=== PATIENT | female | born 1930 | race American Indian/Alaskan Native ===

== ENCOUNTER 2016-05-27 19:20 | Inpatient (IN) | payer MEDICARE, MEDICAID ==
[2016-04-27 23:28] VITALS: BMI 23.1
[2016-05-27] MEDS: Menthol/Methyl Salicylate Ointment(1 oz) TOP SCH (22:23)
[2016-05-27] MEDS ORDERED: Pneumococcal 23-Valent Vaccine IM ONE (22:52)
[2016-05-27] MEDS ORDERED: Influenza Vaccine 45 MCG/0.5 ml IM ONE (22:52)
[2016-05-28] MEDS: Albuterol-Ipratrop 3 mg / 0.5 (3 ml) UD IH SCH ×4 (01:55→20:45)
[2016-05-28 05:41] LABS: ADD MANUAL DIFF? NO
[2016-05-28 05:46] LABS: EOS % 0.4 % (1.5-5.0); GRAN # 4.69 (1.4-6.5); GRAN % 68.5 % (50.0-68.0); HEMATOCRIT 26.2 % (36.0-48.0); LYMPH # 1.2 (1.2-3.4); LYMPH % 17.1 % (22.0-35.0); MEAN CELL VOLUME 91.9 fL (80.0-105.0); MEAN CORPUSCULAR HEMOGLOBIN 30.5 pg (25.0-35.0); MEAN CORPUSCULAR HGB CONC 33.2 g/dl (31.0-37.0); MEAN PLATELET VOLUME 9.9 fl (7.0-11.0); PLATELET COUNT 277 10^3/uL (120.0-450.0); RED CELL DISTRIBUTION WIDTH 13.8 % (11.5-14.5); WHITE BLOOD COUNT 6.9 10^3/ul (4.5-11.0)
[2016-05-28 06:54] LABS: ALB/GLOB RATIO 0.9 (1.1-1.8); ALKALINE PHOSPHATASE 82 U/L (38-133); ALT/SGPT 12 U/L (7-56); AST/SGOT 30 U/L (15-39); BILIRUBIN,TOTAL 0.6 mg/dL (0.2-1.3); BLOOD UREA NITROGEN 12 mg/dL (7-21); CALCIUM 8.3 mg/dL (8.4-10.5); CARBON DIOXIDE 24 mmol/L (21-33); CHLORIDE 104 mmol/L (95-110); GFR AFRICAN-AMERICAN > 60; GLUCOSE,RANDOM 78 mg/dL (70-110); PHOSPHOROUS 2.7 mg/dL (2.5-4.5); POTASSIUM 4.3 mmol/L (3.6-5.0); SODIUM 136 mmol/L (132-148); TOTAL PROTEIN 6.3 g/dL (5.8-8.3)
--- NOTE | 2016-05-28 08:09 | RAD ---
HISTORY: Followup. Technique: Single view portable semi erect @ 21:08. COMPARISON: 05/20/2016. FINDINGS: LUNGS: No active pulmonary disease. PLEURA: No significant pleural effusion identified, no pneumothorax apparent. CARDIOVASCULAR: No radiographic findings to suggest acute or significant cardiovascular disease. OSSEOUS STRUCTURES: Two for osteoarthritic changes both shoulders. VISUALIZED UPPER ABDOMEN: Normal. OTHER FINDINGS: None. IMPRESSION: No active disease. No significant interval change compared to the prior examination(s).
[2016-05-28] MEDS: Menthol/Methyl Salicylate Ointment(1 oz) TOP SCH ×4 (10:07→22:40)
[2016-05-28 10:15] LABS: T4 7.1 ug/dL (5.5-11.0)
[2016-05-28 10:29] LABS: T3 0.59 ng/mL (0.97-1.69); THYROID STIMULATING HORMONE 3.68 mIU/mL (0.46-4.68)
--- NOTE | 2016-05-28 10:55 | CP.PCM.HP ---
History of Present Illness - History of Present Illness History of Present Illness: PGY-1 H&P 85 yo female with PMH of HTN, GI bleed, CAD with stents, anemia and osteoporosis was admitted for fever of unknown origin. She was previously hospitalized for e. coli bacteremia, NSTEMI with 1 stent placed, PNE, and sepsis. Patient was in TCU when she begin to have persistent fluctuating fever for 2 weeks since 05/14/16. Her temperature ranging from 102 to normal. Tylenol was given to help decrease her temperature. She did not have leukocytosis. Her repeat urine cultures from 05/26/16 was negative and blood cultures from 05/24/16 were negative. Her only complaint is fatigue. She denies any headache, dizziness , sob, chest pain, sore throat, abd pain, N/V/D/C, urinary symptoms. She reports mild dry cough. PMH; HTN, GI bleed, CAD with stents, anemia, osteoporosis, h/o e. coli bacteremia PSH; cardiac cath sh; denies smoking, alcohol use, illicit drug use allergy; NKDA Present on Admission - Present on Admission Any Indicators Present on Admission: No Review of Systems - Constitutional Constitutional: Chills, Fatigue, Fever - EENT Eyes: absent: Blurred Vision Nose/Mouth/Throat: absent: Nasal Congestion, Sore Throat - Cardiovascular Cardiovascular: absent: Chest Pain, Dyspnea - Respiratory Respiratory: Cough (mild). absent: Dyspnea, Hemoptysis - Gastrointestinal Gastrointestinal: absent: Abdominal Pain, Constipation, Diarrhea, Nausea, Vomiting - Genitourinary Genitourinary: absent: Difficulty Urinating - Musculoskeletal Musculoskeletal: absent: Muscle Weakness, Numbness, Tingling - Integumentary Integumentary: absent: Rash, Swelling - Neurological Neurological: absent: Dizziness, Numbness, Syncope, Tingling, Weakness - Hematologic/Lymphatic Hematologic: absent: Easy Bleeding, Easy Bruising Past Patient History - Infectious Disease Hx of Infectious Diseases: None - Tetanus Immunizations Tetanus Immunization: Unknown - Past Medical History & Family History Past Medical History?: Yes - Past Social History Smoking Status: Never Smoked Alcohol: None Drugs: Denies - CARDIAC Hx Cardiac Disorders: Yes (angioplasty) Hx Congestive Heart Failure: Yes Hx Heart Murmur: Yes Hx Hypertension: Yes Hx Peripheral Edema: Yes (ble +1 pitting) - PULMONARY Hx Respiratory Disorders: No - NEUROLOGICAL Hx Neurological Disorder: No - HEENT Hx HEENT Problems: Yes Hx Cataracts: Yes (left eye no sx) - RENAL Hx Kidney Stones: Yes - ENDOCRINE/METABOLIC Hx Endocrine Disorders: No - HEMATOLOGICAL/ONCOLOGICAL Hx Blood Disorders: Yes Hx Anemia: Yes (blood transfusions) - INTEGUMENTARY Hx Dermatological Problems: Yes (BILATERAL LEG EDEMA MAINLY TO FEET MORE TO LEFT.) Other/Comment: ble skin tight/edema - MUSCULOSKELETAL/RHEUMATOLOGICAL Hx Falls: No - GASTROINTESTINAL Hx Gastrointestinal Disorders: Yes (DIVERTICULOSIS,HEMORRHOID,GI BLEED,RECTAL BLEED) Hx Gall Bladder Disease: Yes (gallstones) Hx Gastroesophageal Reflux: Yes Other/Comment: rectal bleed - GENITOURINARY/GYNECOLOGICAL Hx Genitourinary Disorders: Yes Hx Urinary Tract Infection: Yes - PSYCHIATRIC Hx Substance Use: No - SURGICAL HISTORY Hx Surgeries: Yes (CHOLECYSTECTOMY) Hx Cardiac Catheterization: Yes Hx Cholecystectomy: Yes Hx Hysterectomy: Yes - ANESTHESIA Hx Anesthesia Reactions: No Hx Malignant Hyperthermia: No Meds Allergies/Adverse Reactions: Allergies Allergy/AdvReac Type Severity Reaction Status Date / Time No Known Allergies Allergy Verified 05/09/16 15:35 Results - Vital Signs Recent Vital Signs: Last Vital Signs Temp 101.5 F H 05/28/16 07:30 Pulse 85 05/28/16 10:08 Resp 18 05/28/16 07:30 BP 146/75 05/28/16 10:08 Pulse Ox 96 05/28/16 07:30 - Labs Result Diagrams: 05/28/16 04:30 05/28/16 04:30 Labs: Laboratory Results - last 24 hr 05/28/16 05/28/16 04:30 07:30 WBC 6.9 RBC 2.85 L Hgb 8.7 L Hct 26.2 L MCV 91.9 MCH 30.5 MCHC 33.2 RDW 13.8 Plt Count 277 MPV 9.9 Gran % 68.5 H Lymph % (Auto) 17.[address] [place] % (Auto) 14.0 H Eos % (Auto) 0.4 L Baso % (Auto) 0.0 Gran # 4.69 Lymph # 1.2 [place] # 1.0 H Eos # 0.0 Baso # 0.00 Sodium 136 Potassium 4.3 Chloride 104 Carbon Dioxide 24 Anion Gap 12 BUN 12 Creatinine 0.6 Est GFR ( Amer) > 60 Est GFR (Non-Af Amer) > 60 Random Glucose 78 Calcium 8.3 L Phosphorus 2.7 Magnesium 2.0 Total Bilirubin 0.6 AST 30 ALT 12 Alkaline Phosphatase 82 Lactate Dehydrogenase 458 Total Protein 6.3 Albumin 2.9 L Globulin 3.4 Albumin/Globulin Ratio 0.9 L Thyroxine (T4) 7.1 Total T3 0.59 L TSH 3rd Generation 3.68 Assessment & Plan - Assessment and Plan (Free Text) Assessment: 85 F whose pmh includes hypertension, GI bleed, CAD with stents, anemia, osteoporosis, and h/o recent E-coli bacteremia presents from TCU with fever of unknown origin. Pt has a persistent fluctuating fever for 2 weeks since 05/14/16. Plan: 1. Fever of unknown origin - CT chest, abd, pelvis - cxr showed no acute disease - consider head CT if other imaging is negative - consider MARTI to r/o culture negative endocarditis due to recent antibiotics - CRP and ESR were positive, LFT normal, anemia - R/O latent TB, EBV, HIV, salmonella Ab - CMV, HIV and syphillis negative - MM test were negative(order urine immunofix, proterin electrophoresis, serum immunofixation) - repeat urine cultures (05/26) negative and blood culture (05/24) negative after 3 days - repeat amaral cultures - SIMONA r/o vasculitis - ID started doxycycline - ID following 2. CAD - recent NSTEMI s/p angioplasty and LAD bare metal stent - cont ASA, plavix, metoprolol, valsartan 320, metoprolol 25, lipitor 40 3. HLD - cont lipitor 40 4. CHF- diastolic - echo on 05/24 showed grade I- abnormal relaxation pattern - CXR: no acute disease - Continue home lasix 40 5. HTN - stable - cont valsartan 320, Lasix 40, metoprolol 25 XL - If persistently high, consider adding 5mg amlodipine 6. Deconditioning - PT/OT - OOB 7. Alzheimer - cont Donepezil 10 daily 8. Anemia - on Feosol 324 TID 9. Osteoporosis - on Fosamax 70 every friday Consult: - Infectious disease - Dr. Jarvis Sampson - [employer] Resource [employer]ist - Dr. Vinayak Lee - Cardiology- Dr. Wolfe
--- NOTE | 2016-05-28 11:00 | US ---
HISTORY: assess thyroid TECHNIQUE: Sonographic evaluation of the thyroid gland. COMPARISON: None FINDINGS: RIGHT LOBE: Measures 3.7 x 1.5 x 1.4 cm. Normal echotexture and flow. Nodules: None LEFT LOBE: Measures 1.9 x 1.4 x 1.3 cm. Normal echotexture and flow. Nodules: None ISTHMUS: Measures cm. Normal echotexture and flow. Nodules: None OTHER FINDINGS: None . IMPRESSION: Unremarkable thyroid sonogram.
--- NOTE | 2016-05-28 11:04 | CT ---
PROCEDURE: CT Abdomen and Pelvis without intravenous contrast HISTORY: sepsis, assess for possible source COMPARISON: 02/05/2016 TECHNIQUE: Without oral or IV contrast. Contrast Dose: Radiation dose: Total exam DLP = 731 mGy-cm. FINDINGS: LOWER THORAX: Small pericardial effusion unchanged LIVER: Unremarkable. No gross lesion or ductal dilatation. GALLBLADDER AND BILE DUCTS: Gallbladder not visualized PANCREAS: Unremarkable. No gross lesion or ductal dilatation. SPLEEN: Unremarkable. ADRENALS: Unremarkable. No mass. KIDNEYS AND URETERS: Unremarkable. No hydronephrosis. No solid mass. VASCULATURE: Unremarkable. No aortic aneurysm. BOWEL: There is a probable diverticular abscess in the left lower quadrant. This is located posterior to the descending colon. This is best seen on axial image 155. There is obliteration of the fat planes between this collection and the left iliac muscle. Air can be seen within the collection. This measures 5.4 cm in diameter. The finding is also well demonstrated on sagittal image 97 and coronal image 52. APPENDIX: Unremarkable. Normal appendix. PERITONEUM: Unremarkable. No free fluid. No free air. LYMPH NODES: Unremarkable. No enlarged lymph nodes. BLADDER: Unremarkable. REPRODUCTIVE: Unremarkable. BONES: There is bony erosion of the left femoral head and expansion of the acetabulum which is filled with fluid. This is unchanged. OTHER FINDINGS: None. IMPRESSION: 5 cm diverticular abscess in the left lower quadrant.
[2016-05-28 11:09] LABS: IRON 10 ug/dL (45-180)
[2016-05-28] MEDS: Piperacillin/Tazobact 3.375 gm 100 ML IVPB SCH ×2 (12:15→17:05)
[2016-05-28 15:42] LABS: FOLATE 11.3 ng/mL
[2016-05-28] MEDS ORDERED: Piperacillin/Tazobact 3.375 gm 100 ML IVPB SCH (18:15)
[2016-05-29] MEDS: Piperacillin/Tazobact 3.375 gm 100 ML IVPB SCH ×5 (00:04→23:19)
--- NOTE | 2016-05-29 01:14 | CP.PCM.CON ---
History of Present Illness - History of Present Illness History of Present Illness: Infectious Disease Follow Up: May 28, 2016 85 yo female initially admitted for worsening shortness of breath and orthopnea. She had a productive cough. No fevers or chills at time of admission. She has a history of hypertension, GI bleed, CAD with stents, anemia , and osteoporosis. Many of her hospitalizations last year were for GI bleed. Blood cultures in early hospitalization showed E. coli in both bottles. Patient received treatment with Rocephin for E. coli bacteremia and completed the course of antibiotics. In the TRCU, the patient had multiple temperature spikes up to 101.9 F overnight on Friday to Friday a week ago. The patient denies any symptoms at this point in time. She does not recall feeling bad or uncomfortable over night. Blood and urine cultures resent showing only coagulase negative staph in urine cultures. Chest X-ray did not show any particular findings. Patient was given Zyvox for treatment. The coagulase negative staph is showing a large number of resistances. Afebrile currently. Patient herself make little complaints. Given the persistence of these borderline fevers, would check the ESR, CRP, and repeat the urine studies. Noted the most recent X-ray of the chest that did not show signs of pneumonia at this point. ESR and CRP show significant elevation. Off antibiotic for about 72 hours now. No specific complaints. Fevers with temperature up to 101.6 F today. Repeat blood cultures have been negative at 24 hours. Awaiting urine culture and urinalysis results. On Doxycycline currently. Inflammatory markers remain high with ESR of 81 and CRP of >15. The patient has no complaints and doesn't realize when she has fevers. She states that she doesn't feel them. Both blood and urine cultures have been negative. Last blood culture was 3 days ago and urine culture done yesterday. Fever of unknown origin. Persistent fevers. Persistent elevation of inflammatory markers. Moved back to the medical floors. CT scan displayed a diverticular abscess. Interventional Radiology consulted. Still persistent fevers. Past Patient History - Infectious Disease Hx of Infectious Diseases: None - Tetanus Immunizations Tetanus Immunization: Unknown - Past Medical History & Family History Past Medical History?: Yes - Past Social History Smoking Status: Never Smoked Alcohol: None Drugs: Denies - CARDIAC Hx Cardiac Disorders: Yes (angioplasty) Hx Congestive Heart Failure: Yes Hx Heart Murmur: Yes Hx Hypertension: Yes Hx Peripheral Edema: Yes (ble +1 pitting) - PULMONARY Hx Respiratory Disorders: No - NEUROLOGICAL Hx Neurological Disorder: No - HEENT Hx HEENT Problems: Yes Hx Cataracts: Yes (left eye no sx) - RENAL Hx Kidney Stones: Yes - ENDOCRINE/METABOLIC Hx Endocrine Disorders: No - HEMATOLOGICAL/ONCOLOGICAL Hx Blood Disorders: Yes Hx Anemia: Yes (blood transfusions) - INTEGUMENTARY Hx Dermatological Problems: Yes (BILATERAL LEG EDEMA MAINLY TO FEET MORE TO LEFT.) Other/Comment: ble skin tight/edema - MUSCULOSKELETAL/RHEUMATOLOGICAL Hx Falls: No - GASTROINTESTINAL Hx Gastrointestinal Disorders: Yes (DIVERTICULOSIS,HEMORRHOID,GI BLEED,RECTAL BLEED) Hx Gall Bladder Disease: Yes (gallstones) Hx Gastroesophageal Reflux: Yes Other/Comment: rectal bleed - GENITOURINARY/GYNECOLOGICAL Hx Genitourinary Disorders: Yes Hx Urinary Tract Infection: Yes - PSYCHIATRIC Hx Substance Use: No - SURGICAL HISTORY Hx Surgeries: Yes (CHOLECYSTECTOMY) Hx Cardiac Catheterization: Yes Hx Cholecystectomy: Yes Hx Hysterectomy: Yes - ANESTHESIA Hx Anesthesia Reactions: No Hx Malignant Hyperthermia: No Meds Allergies/Adverse Reactions: Allergies Allergy/AdvReac Type Severity Reaction Status Date / Time No Known Allergies Allergy Verified 05/09/16 15:35 - Medications Medications: Current Medications Acetaminophen (Tylenol 325mg Tab) 650 mg PO Q4H PRN PRN Reason: Fever >100.4 F Last Admin: 05/28/16 22:44 Dose: 650 mg Albuterol/Ipratropium (Duoneb 3 Mg/0.5 Mg (3 Ml) Ud) 3 ml IH [id number] [facility] Last Admin: 05/28/16 20:45 Dose: 3 ml Alendronate Sodium (Fosamax) 70 mg PO Q7D [facility] Aspirin (Aspirin Chewable) 81 mg PO DAILY [facility] Last Admin: 05/28/16 10:07 Dose: 81 mg Atorvastatin Calcium (Lipitor) 40 mg PO DIN [facility] Last Admin: 05/28/16 17:04 Dose: 40 mg Camphor/Menthol (Bengay) 0 gm TOP QID [facility] Last Admin: 05/28/16 22:40 Dose: 1 applic Clopidogrel Bisulfate (Plavix) 75 mg PO DAILY [facility] Last Admin: 05/28/16 10:08 Dose: 75 mg Docusate Sodium (Colace) 100 mg PO TID [facility] Last Admin: 05/28/16 17:04 Dose: 100 mg Donepezil HCl (Aricept) 10 mg PO HS [facility] Last Admin: 05/28/16 22:38 Dose: 10 mg Ferrous Sulfate (Feosol) 324 mg PO BID [facility] Last Admin: 05/28/16 17:04 Dose: 324 mg Doxycycline Hyclate 100 mg/ (Sodium Chloride) 100 mls @ 100 mls/hr IVPB Q12 [facility] PRN Reason: Protocol Last Admin: 05/28/16 22:50 Dose: 100 mls/hr Iron Sucrose 100 mg/ Sodium (Chloride) 105 mls @ 210 mls/hr IVPB DAILY [facility] Stop: 06/02/16 10:01 Piperacillin Sod/Tazobactam Sod (Zosyn 3.375 In Ns 100ml) 100 mls @ 200 mls/hr IVPB Q6 [facility] PRN Reason: Protocol Stop: 06/03/16 06:29 Last Admin: 05/29/16 00:04 Dose: 200 mls/hr Metoprolol Tartrate (Lopressor) 50 mg PO BID [facility] Last Admin: 05/28/16 17:04 Dose: 50 mg Valsartan (Diovan) 320 mg PO DAILY [facility] Last Admin: 05/28/16 10:07 Dose: 320 mg Physical Exam - Constitutional Appears: Non-toxic, No Acute Distress, Chronically Ill - Head Exam Head Exam: ATRAUMATIC, NORMOCEPHALIC - Eye Exam Eye Exam: EOMI, PERRL Pupil Exam: NORMAL ACCOMODATION, PERRL - ENT Exam ENT Exam: Mucous Membranes Moist, Normal External Ear Exam, TM's Normal Bilaterally - Neck Exam Neck exam: Positive for: Full Rom, Normal Inspection - Respiratory Exam Respiratory Exam: Clear to Auscultation Bilateral, NORMAL BREATHING PATTERN. absent: Rales, Rhonchi, Wheezes - Cardiovascular Exam Cardiovascular Exam: REGULAR RHYTHM, RRR, +S1, +S2 - GI/Abdominal Exam GI & Abdominal Exam: Normal Bowel Sounds, Soft. absent: Distended, Tenderness - Extremities Exam Extremities exam: Positive for: full ROM, normal inspection - Neurological Exam Neurological exam: Alert, CN II-XII Intact, Oriented x3 - Psychiatric Exam Psychiatric exam: Normal Affect, Normal Mood - Skin Skin Exam: Intact, Normal Color Results - Vital Signs Recent Vital Signs: Last Vital Signs Temp 102.2 F H 05/28/16 22:44 Pulse 85 05/28/16 17:04 Resp 20 05/28/16 16:00 BP 137/88 05/28/16 17:04 Pulse Ox 98 05/28/16 16:00 - Labs Result Diagrams: 05/28/16 04:30 05/28/16 04:30 Labs: Laboratory Results - last 24 hr 05/28/16 05/28/16 05/28/16 04:30 07:00 07:30 WBC 6.9 RBC 2.85 L Hgb 8.7 L Hct 26.2 L MCV 91.9 MCH 30.5 MCHC 33.2 RDW 13.8 Plt Count 277 MPV 9.9 Gran % 68.5 H Lymph % (Auto) 17.1 L [place] % (Auto) 14.0 H Eos % (Auto) 0.4 L Baso % (Auto) 0.0 Gran # 4.69 Lymph # 1.2 [place] # 1.0 H Eos # 0.0 Baso # 0.00 Sodium 136 Potassium 4.3 Chloride 104 Carbon Dioxide 24 Anion Gap 12 BUN 12 Creatinine 0.6 Est GFR ( Amer) > 60 Est GFR (Non-Af Amer) > 60 Random Glucose 78 Calcium 8.3 L Phosphorus 2.7 Magnesium 2.0 Iron 10 L TIBC 220 L % Saturation 5 L Ferritin 164.0 Total Bilirubin 0.6 AST 30 ALT 12 Alkaline Phosphatase 82 Lactate Dehydrogenase 458 Total Protein 6.3 Albumin 2.9 L Globulin 3.4 Albumin/Globulin Ratio 0.9 L Vitamin B12 383 Folate 11.3 Procalcitonin 0.18 L Thyroxine (T4) 7.1 Total T3 0.59 L TSH 3rd Generation 3.68 Assessment & Plan - Assessment and Plan (Free Text) Assessment: 85 yo AA female readmitted to the medical floor for persistent fevers with no obvious source. The patient had CT performed that displayed a diverticular abscess. Interventional radiology consults for drainage. Cultures and pathology should be send if material is drainable from the abscess. Cannot rule out drug fever yet on the patient. If drainable, drainage of the diverticular abscess may defervesce the patient. If it does not or the abscess is not drainable, may have to look for another source of the patient's fever. Thank you for allowing me to participate in the care of the patient, we will follow with you.
[2016-05-29] MEDS: Albuterol-Ipratrop 3 mg / 0.5 (3 ml) UD IH SCH ×4 (01:19→21:00)
[2016-05-29 07:02] LABS: ADD MANUAL DIFF? NO
[2016-05-29 07:19] LABS: EOS % 0.5 % (1.5-5.0); GRAN # 5.54 (1.4-6.5); GRAN % 73.5 % (50.0-68.0); LYMPH % 12.9 % (22.0-35.0); MEAN CELL VOLUME 91.6 fL (80.0-105.0); MEAN CORPUSCULAR HEMOGLOBIN 30.5 pg (25.0-35.0); MEAN CORPUSCULAR HGB CONC 33.3 g/dl (31.0-37.0); MEAN PLATELET VOLUME 9.8 fl (7.0-11.0); MONO % 13.1 % (1.0-6.0); PLATELET COUNT 235 10^3/uL (120.0-450.0); RED CELL DISTRIBUTION WIDTH 14.1 % (11.5-14.5); WHITE BLOOD COUNT 7.5 10^3/ul (4.5-11.0)
[2016-05-29 07:26] LABS: ALB/GLOB RATIO 0.8 (1.1-1.8); ALKALINE PHOSPHATASE 80 U/L (38-133); ALT/SGPT 16 U/L (7-56); AST/SGOT 31 U/L (15-39); BILIRUBIN,TOTAL 0.5 mg/dL (0.2-1.3); BLOOD UREA NITROGEN 11 mg/dL (7-21); CALCIUM 7.9 mg/dL (8.4-10.5); CARBON DIOXIDE 23 mmol/L (21-33); CHLORIDE 105 mmol/L (95-110); GFR AFRICAN-AMERICAN > 60; GLUCOSE,RANDOM 77 mg/dL (70-110); POTASSIUM 3.8 mmol/L (3.6-5.0); SODIUM 137 mmol/L (132-148); TOTAL PROTEIN 6.1 g/dL (5.8-8.3)
--- NOTE | 2016-05-29 08:36 | PN ---
DATE: 05/28/2016 CARDIOLOGY FOLLOWUP SUBJECTIVE: The patient is comfortable. She was transferred to the med/surg floor for persistent fe jose. PHYSICAL EXAMINATION: VITAL SIGNS: Blood pressure is 146/75. The heart rate is in the 80s. Temperature is 101.5. NECK: Negative JVD. LUNGS: Without rales. HEART: S1, S2. EXTREMITIES: Without edema. LABORATORY DATA: White count is 6.9. Hemoglobin is 8.7. Chemistries are unremarkable. IMPRESSION: 1. Fever of unknown origin. 2. Stable angina. 3. Coronary artery disease. 4. History of percutaneous transluminal coronary angioplasty and stent of left anterior descending 3 weeks ago with bare metal stent. 5. Hypercholesterolemia. 6. Hypertension. PLAN: Given these findings, the patient's cardiac status is stable. Hemodynamically, she is doing w ell. The patient will need to stay on Plavix for 1 more week. Esa Wolfe MD cc: [id number] TT: 05/28/2016 12:21:50 Confirmation # [id number] Dictation # [id number] reymundo
--- NOTE | 2016-05-29 08:50 | PN ---
DATE: 05/29/2016 SUBJECTIVE: The patient appears comfortable at rest. She is not short of breath. PHYSICAL EXAMINATION: VITAL SIGNS: Temperature is 102.1, pulse 82, respirations 18, blood pressure 135/59. Oxygen saturation on room air is 98%. HEENT: Normocephalic, atraumatic. No JVD. CARDIOVASCULAR: Systolic ejection murmur at the lower left sternal border. No S3 gallop. LUNGS: Minimal crackles at the bases. No rhonchi. No wheezing. EXTREMITIES: Mild edema. No cyanosis, no clubbing. Calves are nontender to palpation. GASTROINTESTINAL: Abdomen is soft, nontender, nondistended. Bowel sounds are positive. SKIN: No acute rash. NEUROLOGIC: Limited at the present time. PERTINENT LABORATORY DATA: CAT scan of the chest, abdomen and pelvis was done on 05/27/2016. There is a diverticular abscess in the left lower quadrant identified. IMPRESSION: 1. Diverticular abscess. 2. Sepsis syndrome. 3. Status post acute myocardial infarction. 4. Status post bilateral pneumonia. 5. Status post congestive heart failure. 6. Acute bronchitis - resolving. PLAN: The patient appears comfortable this morning. She is not short of breath at rest. She states she is feeling better overall. On physical exam, no significant bronchospasm is identified. In addition, there is no significant alveolar arterial gradient. Oxygen saturation on room air is now 98 %. I would continue with current pulmonary medications for now. I did review the last CAT scan - as above. There is a diverticular abscess noted. Dr. Esa Zaldivar (interventional radiology) has been called on the case for drainage. Clinical status of this patient remains very guarded. I will discuss the above with the attending physician. Vinayak Lee MD cc: [id number] TT: 05/29/2016 08:49:08 Confirmation # [id number] Dictation # [id number] [email or web address] KIRK
[2016-05-29 09:53] LABS: URINE BILIRUBIN NEGATIVE (NEGATIVE); URINE BLOOD TRACE-INTACT (NEGATIVE); URINE GLUCOSE (UA) NEGATIVE (NEGATIVE); URINE KETONE NEGATIVE (NEGATIVE); URINE LEUKOCYTE ESTERASE NEGATIVE Leu/uL (NEGATIVE); URINE PROTEIN NEGATIVE mg/dL (<30 mg/dL); URINE UROBILINOGEN 0.2 E.U./dL (<1 E.U./dL)
[2016-05-29 09:54] LABS: URINE APPEARANCE CLEAR (CLEAR); URINE COLOR YELLOW (YELLOW)
[2016-05-29 10:04] LABS: URINE BACTERIA FEW (NEG); URINE RBC 0 - 2 /hpf (0-2)
[2016-05-29] MEDS ORDERED: Barium Sulfate Susp 2.1% w/v, 2.0% w/w 450 mL Bottle PO ONE (10:27)
[2016-05-29] MEDS: Menthol/Methyl Salicylate Ointment(1 oz) TOP SCH ×3 (10:41→18:06)
[2016-05-29 11:36] LABS: INR 1.26 (0.93-1.08); PARTIAL THROMBOPLASTIN TIME 36.1 Seconds (23.7-30.8)
--- NOTE | 2016-05-29 12:25 | CP.PCM.CON ---
History of Present Illness - History of Present Illness History of Present Illness: General Surgery Dr. Keita HPI: 85 y/o F w/ PMHx of HTN, GI bleed, and CAD s/p stents was admitted from TCU for fever of unknown origin. According to hospital documentation, pt was in TCU when she began having persistent fluctuating fevers [id number]. Pt did not have leukocytsis and all cultures were negative. Pt was amaral-scanned on 05/27 which revealed a 5cm diverticular abscess in the LLQ behind the descending colon. Pt denies abd pain, N/V, F/C, D/C, hematochezia, and melena. PMHx: HTN, CAD s/p stenting, anemia, GI bleed, osteoporosis, E. coli bacteremia Meds: reviewed in chart NKDA PSHx: open cholecystectomy, hysterectomy, stents SHx: denies tobacco, EtOH, drug use. lives alone FHx: non-contributory Review of Systems - Review of Systems All systems: reviewed and no additional remarkable complaints except (that which stated in HPI) Past Patient History - Infectious Disease Hx of Infectious Diseases: None - Tetanus Immunizations Tetanus Immunization: Unknown - Past Medical History & Family History Past Medical History?: Yes - Past Social History Smoking Status: Never Smoked Alcohol: None Drugs: Denies - CARDIAC Hx Cardiac Disorders: Yes (angioplasty) Hx Congestive Heart Failure: Yes Hx Heart Murmur: Yes Hx Hypertension: Yes Hx Peripheral Edema: Yes (ble +1 pitting) - PULMONARY Hx Respiratory Disorders: No - NEUROLOGICAL Hx Neurological Disorder: No - HEENT Hx HEENT Problems: Yes Hx Cataracts: Yes (left eye no sx) - RENAL Hx Kidney Stones: Yes - ENDOCRINE/METABOLIC Hx Endocrine Disorders: No - HEMATOLOGICAL/ONCOLOGICAL Hx Blood Disorders: Yes Hx Anemia: Yes (blood transfusions) - INTEGUMENTARY Hx Dermatological Problems: Yes (BILATERAL LEG EDEMA MAINLY TO FEET MORE TO LEFT.) Other/Comment: ble skin tight/edema - MUSCULOSKELETAL/RHEUMATOLOGICAL Hx Falls: No - GASTROINTESTINAL Hx Gastrointestinal Disorders: Yes (DIVERTICULOSIS,HEMORRHOID,GI BLEED,RECTAL BLEED) Hx Gall Bladder Disease: Yes (gallstones) Hx Gastroesophageal Reflux: Yes Other/Comment: rectal bleed - GENITOURINARY/GYNECOLOGICAL Hx Genitourinary Disorders: Yes Hx Urinary Tract Infection: Yes - PSYCHIATRIC Hx Substance Use: No - SURGICAL HISTORY Hx Surgeries: Yes (CHOLECYSTECTOMY) Hx Cardiac Catheterization: Yes Hx Cholecystectomy: Yes Hx Hysterectomy: Yes - ANESTHESIA Hx Anesthesia Reactions: No Hx Malignant Hyperthermia: No Meds Allergies/Adverse Reactions: Allergies Allergy/AdvReac Type Severity Reaction Status Date / Time No Known Allergies Allergy Verified 05/09/16 15:35 - Medications Medications: Current Medications Acetaminophen (Tylenol 325mg Tab) 650 mg PO Q4H PRN PRN Reason: Fever >100.4 F Last Admin: 05/29/16 06:30 Dose: 650 mg Albuterol/Ipratropium (Duoneb 3 Mg/0.5 Mg (3 Ml) Ud) 3 ml IH [id number] [facility] Last Admin: 05/29/16 07:24 Dose: 3 ml Alendronate Sodium (Fosamax) 70 mg PO Q7D [facility] Aspirin (Aspirin Chewable) 81 mg PO DAILY [facility] Last Admin: 05/29/16 10:40 Dose: Not Given Atorvastatin Calcium (Lipitor) 40 mg PO DIN [facility] Last Admin: 05/28/16 17:04 Dose: 40 mg Camphor/Menthol (Bengay) 0 gm TOP QID [facility] Last Admin: 05/29/16 10:41 Dose: 1 applic Clopidogrel Bisulfate (Plavix) 75 mg PO DAILY [facility] Last Admin: 05/29/16 10:40 Dose: Not Given Docusate Sodium (Colace) 100 mg PO TID [facility] Last Admin: 05/29/16 09:43 Dose: 100 mg Donepezil HCl (Aricept) 10 mg PO HS [facility] Last Admin: 05/28/16 22:38 Dose: 10 mg Ferrous Sulfate (Feosol) 324 mg PO BID [facility] Last Admin: 05/29/16 09:43 Dose: 324 mg Doxycycline Hyclate 100 mg/ (Sodium Chloride) 100 mls @ 100 mls/hr IVPB Q12 [facility] PRN Reason: Protocol Last Admin: 05/29/16 10:38 Dose: 100 mls/hr Iron Sucrose 100 mg/ Sodium (Chloride) 105 mls @ 210 mls/hr IVPB DAILY [facility] Stop: 06/02/16 10:01 Last Admin: 05/29/16 09:48 Dose: 210 mls/hr Piperacillin Sod/Tazobactam Sod (Zosyn 3.375 In Ns 100ml) 100 mls @ 200 mls/hr IVPB Q6 [facility] PRN Reason: Protocol Stop: 06/03/16 06:29 Last Admin: 05/29/16 06:25 Dose: 200 mls/hr Metoprolol Tartrate (Lopressor) 50 mg PO BID [facility] Last Admin: 05/29/16 09:44 Dose: 50 mg Valsartan (Diovan) 320 mg PO DAILY [facility] Last Admin: 05/29/16 09:43 Dose: 320 mg Physical Exam - Constitutional Appears: Non-toxic, No Acute Distress - Head Exam Head Exam: NORMAL INSPECTION - Eye Exam Eye Exam: Normal appearance - ENT Exam ENT Exam: Mucous Membranes Moist - Respiratory Exam Respiratory Exam: NORMAL BREATHING PATTERN. absent: Accessory Muscle Use, Respiratory Distress - GI/Abdominal Exam GI & Abdominal Exam: Guarding (involuntary; LUQ/LLQ), Soft. absent: Distended, Rebound, Rigid, Tenderness Additional comments: scars present R subcostal and midline suprapubic - Neurological Exam Neurological exam: Alert, Oriented x3 - Psychiatric Exam Psychiatric exam: Normal Affect, Normal Mood - Skin Skin Exam: Dry, Intact, Normal Color, Warm Results - Vital Signs Recent Vital Signs: Last Vital Signs Temp 99.0 F 05/29/16 07:30 Pulse 82 05/29/16 09:44 Resp 18 05/29/16 07:30 BP 135/60 05/29/16 09:44 Pulse Ox 98 05/29/16 07:30 - Labs Result Diagrams: 05/29/16 06:30 05/29/16 06:30 Labs: Laboratory Tests 05/29/16 05/29/16 06:30 09:30 Calcium 7.9 L Total Bilirubin 0.5 AST 31 ALT 16 Alkaline Phosphatase 80 Total Protein 6.1 Albumin 2.7 L Urine Color Yellow Urine Appearance Clear Urine pH 6.0 Ur Specific Bath 1.020 Urine Protein Negative Urine Glucose (UA) Negative Urine Ketones Negative Urine Blood Trace-intact H Urine Nitrate Negative Urine Bilirubin Negative Urine Urobilinogen 0.2 Ur Leukocyte Esterase Negative Urine RBC 0 - 2 Urine WBC 1 - 3 Ur Epithelial Cells 4 - 5 Urine Bacteria Few Urine Other Uyeast Microbiology 05/27/16 21:25 Blood Blood Culture - Preliminary 05/27/16 21:25 Blood NO GROWTH AFTER 24 HOURS - Imaging and Cardiology CT scan - abdomen Status: Image reviewed by me, Report reviewed by me Assessment & Plan - Assessment and Plan (Free Text) Assessment: 85 y/o F w/ 5cm diverticular abscess - IR drainage - cont Abx per ID - NPO - IVF - f/u GI recs - GI/DVT PPx Pt discussed w/ Dr. Bossman Llanos DO PGY1
--- NOTE | 2016-05-29 12:50 | CP.PCM.PN ---
Subjective - Date & Time of Evaluation Date of Evaluation: 05/29/16 Time of Evaluation: 10:00 - Subjective Subjective: PGY-1 Progress note. Patient seen and examined at bedside. No acute distress. Nurse reports that overnight patient spiked a fever of 102.2. She was give Tylenol. Her temperature did improve however it became elevated again. Patient has no complaints. She denies headache, dizziness, chest pain, sob, abd pain, n/v/d/c, dysuria. Objective - Vital Signs/Intake and Output Vital Signs (last 24 hours): Temp Pulse Resp BP Pulse Ox 99.0 F 82 18 135/60 98 05/29/16 07:30 05/29/16 09:44 05/29/16 07:30 05/29/16 09:44 05/29/16 07:30 Intake and Output: 05/29/16 05/29/16 06:59 18:59 Intake Total 830 Balance 830 - Medications Medications: Current Medications Acetaminophen (Tylenol 325mg Tab) 650 mg PO Q4H PRN PRN Reason: Fever >100.4 F Last Admin: 05/29/16 06:30 Dose: 650 mg Albuterol/Ipratropium (Duoneb 3 Mg/0.5 Mg (3 Ml) Ud) 3 ml IH [id number] [facility] Last Admin: 05/29/16 07:24 Dose: 3 ml Alendronate Sodium (Fosamax) 70 mg PO Q7D [facility] Aspirin (Aspirin Chewable) 81 mg PO DAILY [facility] Last Admin: 05/29/16 10:40 Dose: Not Given Atorvastatin Calcium (Lipitor) 40 mg PO DIN [facility] Last Admin: 05/28/16 17:04 Dose: 40 mg Camphor/Menthol (Bengay) 0 gm TOP QID [facility] Last Admin: 05/29/16 10:41 Dose: 1 applic Clopidogrel Bisulfate (Plavix) 75 mg PO DAILY [facility] Last Admin: 05/29/16 10:40 Dose: Not Given Docusate Sodium (Colace) 100 mg PO TID [facility] Last Admin: 05/29/16 09:43 Dose: 100 mg Donepezil HCl (Aricept) 10 mg PO HS [facility] Last Admin: 05/28/16 22:38 Dose: 10 mg Ferrous Sulfate (Feosol) 324 mg PO BID [facility] Last Admin: 05/29/16 09:43 Dose: 324 mg Doxycycline Hyclate 100 mg/ (Sodium Chloride) 100 mls @ 100 mls/hr IVPB Q12 [facility] PRN Reason: Protocol Last Admin: 05/29/16 10:38 Dose: 100 mls/hr Iron Sucrose 100 mg/ Sodium (Chloride) 105 mls @ 210 mls/hr IVPB DAILY [facility] Stop: 06/02/16 10:01 Last Admin: 05/29/16 09:48 Dose: 210 mls/hr Piperacillin Sod/Tazobactam Sod (Zosyn 3.375 In Ns 100ml) 100 mls @ 200 mls/hr IVPB Q6 [facility] PRN Reason: Protocol Stop: 06/03/16 06:29 Last Admin: 05/29/16 06:25 Dose: 200 mls/hr Metoprolol Tartrate (Lopressor) 50 mg PO BID [facility] Last Admin: 05/29/16 09:44 Dose: 50 mg Valsartan (Diovan) 320 mg PO DAILY [facility] Last Admin: 05/29/16 09:43 Dose: 320 mg - Labs Labs: 05/29/16 06:30 05/29/16 06:30 PT 13.6 Seconds (9.9-11.8) H 05/29/16 11:15 INR 1.26 (0.93-1.08) H 05/29/16 11:15 APTT 36.1 Seconds (23.7-30.8) H 05/29/16 11:15 - Constitutional Appears: Well, No Acute Distress - Head Exam Head Exam: ATRAUMATIC, NORMOCEPHALIC - Eye Exam Eye Exam: Normal appearance - ENT Exam ENT Exam: Mucous Membranes Moist - Respiratory Exam Respiratory Exam: Clear to Ausculation Bilateral, NORMAL BREATHING PATTERN. absent: Rhonchi, Wheezes, Respiratory Distress - Cardiovascular Exam Cardiovascular Exam: REGULAR RHYTHM. absent: Tachycardia, Murmur - GI/Abdominal Exam GI & Abdominal Exam: Soft, Normal Bowel Sounds. absent: Distended, Guarding, Tenderness - Extremities Exam Extremities Exam: Normal Inspection. absent: Pedal Edema - Neurological Exam Neurological Exam: Alert, Awake, Oriented x3 Assessment and Plan - Assessment and Plan (Free Text) Assessment: 85 F whose pmh includes hypertension, GI bleed, CAD with stents, anemia, osteoporosis, and h/o recent E-coli bacteremia presents from TCU with persistent fevers. Pt has a persistent fluctuating fever for [address] abd showed diverticular abscess, 5 cm. Plan: 1. Fever - most likely due to diverticular abscess - CT chest, abd, pelvis showed 5 cm diverticular abscess in left lower quadrant - cxr showed no acute disease - CMV, HIV, TB and syphillis negative - repeat urine cultures pending - repeat blood cultures are negative after 24 hours - NPO - hold asa and plavix - cont on zosyn - ID following - GI consulted - IR consulted for possible drainage - surgery consulted 2. anemia - stable at 8.4 - baseline of 10 - on Feosol 324 TID - started on Iron sucrose - GI consulted - heme consulted 3. CAD - recent NSTEMI s/p angioplasty and LAD bare metal stent - cont ASA, plavix, metoprolol, valsartan 320, metoprolol 25, lipitor 40 - cardiology following 4. HLD - cont lipitor 40 5. CHF- diastolic - echo on 05/24 showed grade I- abnormal relaxation pattern - CXR: no acute disease - Continue home lasix 40 6. HTN - stable - cont valsartan 320, Lasix 40, metoprolol 25 XL - If persistently high, consider adding 5mg amlodipine 7. Deconditioning - PT/OT - OOB 8. Alzheimer - cont Donepezil 10 daily 9. Osteoporosis - on Fosamax 70 every friday Consult: - Infectious disease - Dr. Jarvis Sampson - Psychiatric Tech - Dr. Vinayak Lee - Cardiology- Dr. Wolfe - GI- Dr. Archuleta - Heme/onc- Dr. Banda - IR- Dr. Lesia Zaldivar - Surgery- Dr. Keita
--- NOTE | 2016-05-29 13:44 | PN ---
DATE: 05/29/2016 The patient is chest pain free. Temperature was 102 this morning. PHYSICAL EXAMINATION: VITAL SIGNS: Blood pressure is 135/60. The heart rate is in the 80s. NECK: Negative JVD. LUNGS: Without rales. HEART: Reveals S1, S2. EXTREMITIES: Without edema. LABORATORY DATA: The hemoglobin is down to 8. White count is normal. SMA-20 is unremarkable. IMPRESSION: 1. Recurrent fevers. 2. Stable angina. 3. Coronary artery disease. 4. Remote non-ST segment elevation myocardial infarction. PLAN: Given these findings, the patient will need to remain on Plavix for another 6 days. Esa Wolfe MD cc: [id number] TT: 05/29/2016 13:43:36 Confirmation # [id number] Dictation # [id number]
[2016-05-29] MEDS ORDERED: Midazolam 2 MG/2 ML VIAL ONE (14:18)
--- NOTE | 2016-05-29 15:06 | CP.PCM.PN ---
Subjective - Date & Time of Evaluation Date of Evaluation: 05/29/16 Time of Evaluation: 13:30 - Subjective Subjective: Infectious Disease Follow Up: May 29, 2016 85 yo female initially admitted for worsening shortness of breath and orthopnea. She had a productive cough. No fevers or chills at time of admission. She has a history of hypertension, GI bleed, CAD with stents, anemia , and osteoporosis. Many of her hospitalizations last year were for GI bleed. Blood cultures in early hospitalization showed E. coli in both bottles. Patient received treatment with Rocephin for E. coli bacteremia and completed the course of antibiotics. In the TRCU, the patient had multiple temperature spikes up to 101.9 F overnight on Friday to Friday a week ago. The patient denies any symptoms at this point in time. She does not recall feeling bad or uncomfortable over night. Blood and urine cultures resent showing only coagulase negative staph in urine cultures. Chest X-ray did not show any particular findings. Patient was given Zyvox for treatment. The coagulase negative staph is showing a large number of resistances. Afebrile currently. Patient herself make little complaints. Given the persistence of these borderline fevers, would check the ESR, CRP, and repeat the urine studies. Noted the most recent X-ray of the chest that did not show signs of pneumonia at this point. ESR and CRP show significant elevation. Off antibiotic for about 72 hours now. No specific complaints. Fevers with temperature up to 101.6 F today. Repeat blood cultures have been negative at 48 hours. Awaiting urine culture and urinalysis results. On Doxycycline and Zosyn currently. Inflammatory markers remain high with ESR of 81 and CRP of >15. The patient has no complaints and doesn't realize when she has fevers. She states that she doesn't feel them. Both blood and urine cultures have been negative. Last blood culture was 3 days ago and urine culture done yesterday. Fever of unknown origin. Persistent fevers. Persistent elevation of inflammatory markers. Moved back to the medical floors. CT scan displayed a 5 cm diverticular abscess. Interventional Radiology consulted. Still persistent fevers. Objective - Vital Signs/Intake and Output Vital Signs (last 24 hours): Temp Pulse Resp BP Pulse Ox 99.0 F 82 18 135/60 98 05/29/16 07:30 05/29/16 09:44 05/29/16 07:30 05/29/16 09:44 05/29/16 07:30 Intake and Output: 05/29/16 05/29/16 06:59 18:59 Intake Total 830 Balance 830 - Medications Medications: Current Medications Acetaminophen (Tylenol 325mg Tab) 650 mg PO Q4H PRN PRN Reason: Fever >100.4 F Last Admin: 05/29/16 06:30 Dose: 650 mg Albuterol/Ipratropium (Duoneb 3 Mg/0.5 Mg (3 Ml) Ud) 3 ml IH [id number] [facility] Last Admin: 05/29/16 13:15 Dose: 3 ml Alendronate Sodium (Fosamax) 70 mg PO Q7D [facility] Aspirin (Aspirin Chewable) 81 mg PO DAILY [facility] Last Admin: 05/29/16 10:40 Dose: Not Given Atorvastatin Calcium (Lipitor) 40 mg PO DIN [facility] Last Admin: 05/28/16 17:04 Dose: 40 mg Camphor/Menthol (Bengay) 0 gm TOP QID [facility] Last Admin: 05/29/16 13:25 Dose: 1 applic Clopidogrel Bisulfate (Plavix) 75 mg PO DAILY [facility] Last Admin: 05/29/16 10:40 Dose: Not Given Docusate Sodium (Colace) 100 mg PO TID [facility] Last Admin: 05/29/16 13:26 Dose: Not Given Donepezil HCl (Aricept) 10 mg PO HS [facility] Last Admin: 05/28/16 22:38 Dose: 10 mg Ferrous Sulfate (Feosol) 324 mg PO BID [facility] Last Admin: 05/29/16 09:43 Dose: 324 mg Doxycycline Hyclate 100 mg/ (Sodium Chloride) 100 mls @ 100 mls/hr IVPB Q12 [facility] PRN Reason: Protocol Last Admin: 05/29/16 10:38 Dose: 100 mls/hr Iron Sucrose 100 mg/ Sodium (Chloride) 105 mls @ 210 mls/hr IVPB DAILY [facility] Stop: 06/02/16 10:01 Last Admin: 05/29/16 09:48 Dose: 210 mls/hr Piperacillin Sod/Tazobactam Sod (Zosyn 3.375 In Ns 100ml) 100 mls @ 200 mls/hr IVPB Q6 [facility] PRN Reason: Protocol Stop: 06/03/16 06:29 Last Admin: 05/29/16 13:26 Dose: 200 mls/hr Metoprolol Tartrate (Lopressor) 50 mg PO BID [facility] Last Admin: 05/29/16 09:44 Dose: 50 mg Valsartan (Diovan) 320 mg PO DAILY [facility] Last Admin: 05/29/16 09:43 Dose: 320 mg - Labs Labs: 05/29/16 06:30 05/29/16 06:30 PT 13.6 Seconds (9.9-11.8) H 05/29/16 11:15 INR 1.26 (0.93-1.08) H 05/29/16 11:15 APTT 36.1 Seconds (23.7-30.8) H 05/29/16 11:15 - Constitutional Appears: Non-toxic, No Acute Distress - Head Exam Head Exam: ATRAUMATIC, NORMOCEPHALIC - Eye Exam Eye Exam: EOMI, PERRL Pupil Exam: NORMAL ACCOMODATION, PERRL - ENT Exam ENT Exam: Mucous Membranes Moist, Normal External Ear Exam, TM's Normal Bilaterally - Neck Exam Neck Exam: Full ROM, Normal Inspection - Respiratory Exam Respiratory Exam: Clear to Ausculation Bilateral, NORMAL BREATHING PATTERN. absent: Rales, Rhonchi, Wheezes - Cardiovascular Exam Cardiovascular Exam: REGULAR RHYTHM, RRR, +S1, +S2 - GI/Abdominal Exam GI & Abdominal Exam: Soft, Normal Bowel Sounds. absent: Distended, Tenderness - Extremities Exam Extremities Exam: Full ROM, Normal Inspection - Neurological Exam Neurological Exam: Alert, Awake, CN II-XII Intact, Oriented x3 - Psychiatric Exam Psychiatric exam: Normal Affect, Normal Mood - Skin Skin Exam: Intact, Normal Color Assessment and Plan - Assessment and Plan (Free Text) Assessment: 85 yo AA female readmitted to the medical floor for persistent fevers with no obvious source. The patient had CT performed that displayed a diverticular abscess. Interventional radiology consults for drainage. Cultures and pathology should be send if material is drainable from the abscess. Cannot rule out drug fever yet on the patient. If drainable, drainage of the diverticular abscess may defervesce the patient. If it does not or the abscess is not drainable, may have to look for another source of the patient's fever. Currently on Doxycycline and Zosyn. Thank you for allowing me to participate in the care of the patient, we will follow with you.
[2016-05-29] MEDS ORDERED: Oxycodone/Acetaminophen 5/325 mg Tab PO PRN (15:22)
[2016-05-29] MEDS ORDERED: Sodium Chloride 0.45% 1,000 ML IV SCH (15:30)
--- NOTE | 2016-05-29 18:27 | CT ---
PROCEDURE: CT-guided left lower quadrant abscess drainage HISTORY: Left lower quadrant abscess. Surgical candidate. Needs drainage. PHYSICIAN(S): Esa Zaldivar MD. TECHNIQUE: The relative risks and indications for the procedure were explained to the patient and informed consent obtained. The patient was placed in a supine position on the CT scanner and preliminary images through the pelvis performed. This revealed a 5 cm fluid collection with air adjacent to the sigmoid colon and left iliacus muscle. A left lateral approach was selected and the area prepped/draped in the usual sterile fashion. Conscious sedation and monitoring were provided throughout the procedure by nurse. An 18-gauge needle was advanced into the collection and 3 cc of purulent fluid aspirated. A specimen was sent to microbiology. A 0.035 J-wire was coiled within the fluid collection. Sequential dilatation was performed with subsequent placement of a 12 Nepali pigtail drain. Approximately 30 cc of pure fluid was aspirated. The cavity was lavaged with normal saline. The drain was sutured to the skin and placed to gravity drainage. Completion images were performed. The patient tolerated the procedure well. IMPRESSION: 1. CT-guided left lower quadrant abscess drainage as described above.
[2016-05-30] MEDS: Albuterol-Ipratrop 3 mg / 0.5 (3 ml) UD IH SCH ×4 (02:35→20:07)
[2016-05-30] MEDS: Piperacillin/Tazobact 3.375 gm 100 ML IVPB SCH ×4 (05:57→23:37)
[2016-05-30 06:52] LABS: ADD MANUAL DIFF? NO
[2016-05-30 07:10] LABS: EOS % 0.6 % (1.5-5.0); GRAN # 4.23 (1.4-6.5); GRAN % 66.5 % (50.0-68.0); LYMPH # 1.3 (1.2-3.4); LYMPH % 19.9 % (22.0-35.0); MEAN CELL VOLUME 91.1 fL (80.0-105.0); MEAN CORPUSCULAR HEMOGLOBIN 30.8 pg (25.0-35.0); MEAN CORPUSCULAR HGB CONC 33.8 g/dl (31.0-37.0); MEAN PLATELET VOLUME 9.8 fl (7.0-11.0); MONO # 0.8 (0.1-0.6); PLATELET COUNT 224 10^3/uL (120.0-450.0); RED CELL DISTRIBUTION WIDTH 14.1 % (11.5-14.5); WHITE BLOOD COUNT 6.4 10^3/ul (4.5-11.0)
[2016-05-30 07:13] LABS: ALB/GLOB RATIO 0.7 (1.1-1.8); ALKALINE PHOSPHATASE 79 U/L (38-133); ALT/SGPT 20 U/L (7-56); AST/SGOT 26 U/L (15-39); BILIRUBIN,TOTAL 0.6 mg/dL (0.2-1.3); BLOOD UREA NITROGEN 8 mg/dL (7-21); CALCIUM 7.5 mg/dL (8.4-10.5); CARBON DIOXIDE 22 mmol/L (21-33); CHLORIDE 106 mmol/L (98-107); GFR AFRICAN-AMERICAN > 60; GLUCOSE,RANDOM 75 mg/dL (70-110); POTASSIUM 3.3 mmol/L (3.6-5.0); SODIUM 134 mmol/L (132-148); TOTAL PROTEIN 5.5 g/dL (5.8-8.3)
--- NOTE | 2016-05-30 07:34 | CP.PCM.PN ---
Subjective - Date & Time of Evaluation Date of Evaluation: 05/30/16 Time of Evaluation: 07:31 - Subjective Subjective: 85 year old female is seen and examined at bedside. Patient was febrile overnight. Otherwise, no acute events overnight. Drained output about 75 cc overnight. Denies having any abd pain, N/V/D/C. Does c/o of fevers. Tolerating diet. Objective - Vital Signs/Intake and Output Vital Signs (last 24 hours): Temp Pulse Resp BP Pulse Ox 99.2 F 80 20 157/79 H 99 05/30/16 06:03 05/29/16 18:07 05/29/16 17:00 05/29/16 18:07 05/29/16 17:00 Intake and Output: 05/30/16 05/30/16 06:59 18:59 Intake Total 3060 Output Total 75 Balance 2985 - Medications Medications: Current Medications Acetaminophen (Tylenol 325mg Tab) 650 mg PO Q4H PRN PRN Reason: Fever >100.4 F Last Admin: 05/29/16 22:13 Dose: 650 mg Albuterol/Ipratropium (Duoneb 3 Mg/0.5 Mg (3 Ml) Ud) 3 ml IH [id number] [facility] Last Admin: 05/30/16 02:35 Dose: Not Given Alendronate Sodium (Fosamax) 70 mg PO Q7D [facility] Aspirin (Aspirin Chewable) 81 mg PO DAILY [facility] Last Admin: 05/29/16 10:40 Dose: Not Given Atorvastatin Calcium (Lipitor) 40 mg PO DIN [facility] Last Admin: 05/29/16 18:07 Dose: 40 mg Camphor/Menthol (Bengay) 0 gm TOP QID [facility] Last Admin: 05/29/16 18:06 Dose: 1 applic Clopidogrel Bisulfate (Plavix) 75 mg PO DAILY [facility] Last Admin: 05/29/16 10:40 Dose: Not Given Docusate Sodium (Colace) 100 mg PO TID [facility] Last Admin: 05/29/16 18:02 Dose: Not Given Donepezil HCl (Aricept) 10 mg PO HS [facility] Last Admin: 05/29/16 22:12 Dose: 10 mg Ferrous Sulfate (Feosol) 324 mg PO BID [facility] Last Admin: 05/29/16 18:07 Dose: 324 mg Doxycycline Hyclate 100 mg/ (Sodium Chloride) 100 mls @ 100 mls/hr IVPB Q12 [facility] PRN Reason: Protocol Last Admin: 05/29/16 22:12 Dose: 100 mls/hr Iron Sucrose 100 mg/ Sodium (Chloride) 105 mls @ 210 mls/hr IVPB DAILY [facility] Stop: 06/02/16 10:01 Last Admin: 05/29/16 09:48 Dose: 210 mls/hr Piperacillin Sod/Tazobactam Sod (Zosyn 3.375 In Ns 100ml) 100 mls @ 200 mls/hr IVPB Q6 [facility] PRN Reason: Protocol Stop: 06/03/16 06:29 Last Admin: 05/30/16 05:57 Dose: 200 mls/hr Sodium Chloride (Sodium Chloride 0.45%) 1,000 mls @ 100 mls/hr IV .Q10H [facility] Stop: 05/30/16 08:00 Last Admin: 05/29/16 18:05 Dose: 100 mls/hr Metoprolol Tartrate (Lopressor) 50 mg PO BID [facility] Last Admin: 05/29/16 18:07 Dose: 50 mg Ondansetron HCl (Zofran Inj) 4 mg IVP Q6H PRN PRN Reason: Nausea/Vomiting Oxycodone/Acetaminophen (Percocet 5/325 Mg Tab) 1 tab PO Q4H PRN PRN Reason: Pain, moderate (4-7) Stop: 06/01/16 15:23 Valsartan (Diovan) 320 mg PO DAILY [facility] Last Admin: 05/29/16 09:43 Dose: 320 mg - Labs Labs: 05/29/16 06:30 05/30/16 06:50 PT 13.6 Seconds (9.9-11.8) H 05/29/16 11:15 INR 1.26 (0.93-1.08) H 05/29/16 11:15 APTT 36.1 Seconds (23.7-30.8) H 05/29/16 11:15 - Constitutional Appears: Non-toxic, No Acute Distress - Head Exam Head Exam: ATRAUMATIC, NORMAL INSPECTION - ENT Exam ENT Exam: Mucous Membranes Moist - Respiratory Exam Respiratory Exam: Clear to Ausculation Bilateral - Cardiovascular Exam Cardiovascular Exam: REGULAR RHYTHM - GI/Abdominal Exam GI & Abdominal Exam: Soft. absent: Firm, Guarding, Tenderness Additional comments: drain in place with serosanguinous fluid. - Extremities Exam Extremities Exam: absent: Pedal Edema, Tenderness - Neurological Exam Neurological Exam: Alert, Awake, Oriented x3 - Psychiatric Exam Psychiatric exam: Normal Affect, Normal Mood - Skin Skin Exam: Dry, Intact, Normal Color, Warm Assessment and Plan - Assessment and Plan (Free Text) Assessment: 85 year old female is seen of diverticular abscess s/p IR drainage POD 1 - Continue to monitor output of drain - Continue Abx per ID recs - Diet as tolerated - GI/DVT prophylaxis Will discuss with Dr. Keita for further recs Alta Viveros PGY1
[2016-05-30] MEDS ORDERED: Potassium Chloride 20 mEq ER Tab PO ONE ×2 (07:44→10:00)
[2016-05-30 08:03] LABS: HEMATOCRIT 21.6 % (36.0-48.0)
--- NOTE | 2016-05-30 08:41 | PN ---
DATE: 05/30/2016 SUBJECTIVE: The patient appears comfortable at rest. She is not short of breath. PHYSICAL EXAMINATION: VITAL SIGNS: Temperature is 99.2, pulse 80, respirations 18, blood pressure 157 /79. Oxygen saturation on room air is 99%. HEENT: Normocephalic, atraumatic. No JVD. CARDIOVASCULAR: Systolic ejection murmur at the lower left sternal border. No S3 gallop. LUNGS: Minimal crackles at the bases. No rhonchi. No wheezing. EXTREMITIES: Mild edema. No cyanosis. No clubbing. Calves are nontender to palpation. GASTROINTESTINAL: Abdomen is soft, nontender, nondistended. Bowel sounds are positive. There is a left lower quadrant drain in place. SKIN: No acute rash. NEUROLOGIC: Limited at the present time. IMPRESSION: 1. Diverticular abscess. Status post drainage procedure. 2. Sepsis syndrome. 3. Status post acute myocardial infarction. 4. Status post bilateral pneumonia. 5. Status post congestive heart failure. 6. Acute bronchitis - resolving. PLAN: The patient appears comfortable this morning. She is not short of breath at rest. She states she is feeling better overall. On physical exam, there is no significant bronchospasm noted. In addition, there is no significant alveolar arterial gradient. Oxygen saturation on room air is now 99 %. I will continue with the current pulmonary medications for now. Input by Dr. Zaldivar (interventional radiology) is noted. The patient is status post abdominal drainage procedure. I would continue with the antibiotic coverage as per infectious disease. Temperatures appear to be decreasing over the past shift. Surgical evaluation is also noted. Clinical status of the patient is improved - compared to a few days ago. However, again, the overall status/ prognosis of this patient remains very guarded. I will discuss the above with Dr. Diaz. Vinayak Lee MD cc: [id number] TT: 05/30/2016 08:40:48 Confirmation # [id number] Dictation # [id number] mn REAGAN
[2016-05-30] MEDS: Menthol/Methyl Salicylate Ointment(1 oz) TOP SCH ×4 (09:38→21:41)
--- NOTE | 2016-05-30 11:02 | CON ---
DATE: 05/30/2016 REASON FOR CONSULTATION: Anemia. HISTORY OF PRESENT ILLNESS: The patient is an 85-year-old female with multiple medical problems incl uding hypertension, history of GI bleed, coronary artery disease with stents, osteoporosis, who was a dmitted with fever of unknown origin. She has previously been hospitalized for E. coli bacteremia, n on-ST myocardial infarction with stent placed, and sepsis. She currently has a hemoglobin of 7.3 and on admission it was 8.7. There is no active bleeding noted. She denies any active bleeding. She h as not noted any hematuria, hematemesis or melena or hematochezia. Denies any weight changes. Her t emperature is ranging anywhere in the 101-102 range. She denies any weight changes. No nausea, no v omiting, no diarrhea, no urinary symptoms, no chest pain, no dizziness, no shortness of breath. PAST MEDICAL HISTORY: Positive for hypertension, GI bleed, coronary artery disease with stents, anem ia, osteoporosis, and history of E. coli bacteremia. SOCIAL HISTORY: Noncontributory. She is not a smoker, no alcohol use, no drug use, no illicit drug use. ALLERGIES: No known drug allergies. MEDICATIONS: Currently include Aricept, aspirin, BenGay, Colace, Diovan, doxycycline, DuoNeb, Feosol , Fosamax, Lipitor, Lopressor, Plavix, Tylenol and Zofran. FAMILY HISTORY: Noncontributory. REVIEW OF SYSTEMS: As per the HPI. PHYSICAL EXAMINATION: VITAL SIGNS: Reveal currently a temperature of 99.2, T-max of 101.6, pulse of 72, respiratory rate o f 20, and a blood pressure of 135/76. GENERAL: The patient is an elderly pleasant female, lying in bed, in no acute distress. HEAD AND NECK: Normocephalic, atraumatic. EYES: Pupils equal, round, reactive to light and accommodation. Extraocular muscles are intact. Th ere is marked pallor, no icterus is noted. NECK: Supple with no adenopathy, no JVD, no thyromegaly. LUNGS: Decreased breath sounds bilaterally at bases, otherwise clear to auscultation. CARDIOVASCULAR: S1, S2 is heard. ABDOMEN: Positive bowel sounds, soft, nontender, nondistended, no organomegaly is palpated. EXTREMITIES: There is no edema, clubbing, or cyanosis. LABORATORY DATA: Reveal a white count 6.4, hemoglobin 7.3, on admission it was 8.7, hematocrit 21.6, MCV of 91.1, platelet count 224 and white count diff reveals some monocytosis. Chemistries are with in normal limits. There is no renal insufficiency, potassium is low at 3.3. Liver functions are wit hin normal limits and iron studies reveal anemia of chronic disease. B12 and folate are also within normal limits. ASSESSMENT AND PLAN: Elderly female with marked normocytic normochromic anemia and some monocytosis. Currently, admitted with fevers and possible sepsis. The hemoglobin has been persistently low, we will have to rule out underlying bone marrow disorder in this elderly female. Check serum protein, e lectrophoresis. May also need a bone marrow evaluation. Transfuse 2 units of packed red blood cells today as her hemoglobin continues to drop. We will also review the patient's recent GI workup. Thank you for the consult. We will follow. Piper Banda MD cc: [id number] TT: 05/30/2016 11:02:17 Confirmation # [id number] Dictation # [id number] jn
--- NOTE | 2016-05-30 12:56 | PN ---
DATE: 05/30/2016 PHYSICAL EXAMINATION: VITAL SIGNS: The patient remains febrile. Blood pressure is 153/76, the heart rate is 101. NECK: Negative JVD. LUNGS: Without rales. HEART: Reveals S1, S2. EXTREMITIES: Without change. LABORATORIES: Hemoglobin is 7.3. IMPRESSION: 1. Status post abscess drainage. 2. Coronary artery disease. 3. Marked anemia. 4. Status post [id number] myocardial infarction with a bare metal stent placed in the left ant erior descending. Given these findings, we will discontinue her Plavix given her recent surgery and her progressive ane lukas. The patient has been on Plavix for over 3 weeks with a bare metal stent in the LAD. Esa Wolfe MD cc: [id number] TT: 05/30/2016 12:56:08 Confirmation # [id number] Dictation # [id number]
--- NOTE | 2016-05-30 17:56 | CP.PCM.PN ---
Subjective - Date & Time of Evaluation Date of Evaluation: 05/30/16 Time of Evaluation: 10:00 - Subjective Subjective: PGY-1 Progress note. Patient seen and examined at bedside. No acute distress. Nurse reports fever of 102.9 overnight. The fever reduced with Tylenol. Patient reports mild headache and general fatigue. She denies chest pain, sob, n/v/d/c or abd pain. Patient had CT guided drainage of diverticular abscess, with drain placed. Objective - Vital Signs/Intake and Output Vital Signs (last 24 hours): Temp Pulse Resp BP Pulse Ox 99.2 F 78 20 147/78 99 05/30/16 17:33 05/30/16 17:33 05/30/16 17:33 05/30/16 17:33 05/30/16 16:00 Intake and Output: 05/30/16 05/30/16 06:59 18:59 Intake Total 3060 960 Output Total 75 Balance 2985 960 - Medications Medications: Current Medications Acetaminophen (Tylenol 325mg Tab) 650 mg PO Q4H PRN PRN Reason: Fever >100.4 F Last Admin: 05/30/16 12:24 Dose: 650 mg Albuterol/Ipratropium (Duoneb 3 Mg/0.5 Mg (3 Ml) Ud) 3 ml IH [id number] [facility] Last Admin: 05/30/16 13:31 Dose: 3 ml Alendronate Sodium (Fosamax) 70 mg PO Q7D [facility] Aspirin (Aspirin Chewable) 81 mg PO DAILY [facility] Last Admin: 05/29/16 10:40 Dose: Not Given Atorvastatin Calcium (Lipitor) 40 mg PO DIN [facility] Last Admin: 05/30/16 17:18 Dose: 40 mg Camphor/Menthol (Bengay) 0 gm TOP QID [facility] Last Admin: 05/30/16 17:18 Dose: 1 applic Docusate Sodium (Colace) 100 mg PO TID [facility] Last Admin: 05/30/16 17:18 Dose: Not Given Donepezil HCl (Aricept) 10 mg PO HS [facility] Last Admin: 05/29/16 22:12 Dose: 10 mg Ferrous Sulfate (Feosol) 324 mg PO BID [facility] Last Admin: 05/30/16 17:18 Dose: 324 mg Doxycycline Hyclate 100 mg/ (Sodium Chloride) 100 mls @ 100 mls/hr IVPB Q12 [facility] PRN Reason: Protocol Last Admin: 05/30/16 09:37 Dose: 100 mls/hr Piperacillin Sod/Tazobactam Sod (Zosyn 3.375 In Ns 100ml) 100 mls @ 200 mls/hr IVPB Q6 [facility] PRN Reason: Protocol Stop: 06/03/16 06:29 Last Admin: 05/30/16 11:00 Dose: 200 mls/hr Metoprolol Tartrate (Lopressor) 50 mg PO BID [facility] Last Admin: 05/30/16 17:28 Dose: 50 mg Ondansetron HCl (Zofran Inj) 4 mg IVP Q6H PRN PRN Reason: Nausea/Vomiting Oxycodone/Acetaminophen (Percocet 5/325 Mg Tab) 1 tab PO Q4H PRN PRN Reason: Pain, moderate (4-7) Stop: 06/01/16 15:23 Valsartan (Diovan) 320 mg PO DAILY [facility] Last Admin: 05/30/16 09:36 Dose: 320 mg - Labs Labs: 05/30/16 06:50 05/30/16 06:50 PT 13.6 Seconds (9.9-11.8) H 05/29/16 11:15 INR 1.26 (0.93-1.08) H 05/29/16 11:15 APTT 36.1 Seconds (23.7-30.8) H 05/29/16 11:15 - Constitutional Appears: Well, No Acute Distress - Head Exam Head Exam: ATRAUMATIC, NORMOCEPHALIC - Eye Exam Eye Exam: Normal appearance - Respiratory Exam Respiratory Exam: Clear to Ausculation Bilateral, NORMAL BREATHING PATTERN. absent: Rhonchi, Wheezes, Respiratory Distress - Cardiovascular Exam Cardiovascular Exam: REGULAR RHYTHM. absent: Tachycardia, Murmur - GI/Abdominal Exam GI & Abdominal Exam: Soft, Normal Bowel Sounds. absent: Distended, Firm, Tenderness Additional comments: dressing clean, dry and intact. Drain in place - Extremities Exam Extremities Exam: Normal Inspection. absent: Pedal Edema - Neurological Exam Neurological Exam: Alert, Awake, Oriented x3 - Skin Skin Exam: Dry, Intact, Normal Color, Warm Assessment and Plan - Assessment and Plan (Free Text) Assessment: 85 F whose pmh includes hypertension, GI bleed, CAD with stents, anemia, osteoporosis, and h/o recent E-coli bacteremia presents from TCU with persistent fevers. Pt has a persistent fluctuating fever for [address] abd showed diverticular abscess, 5 cm. Abscess was drained under CT guidance. Plan: 1. diverticular abscess - CT chest, abd, pelvis showed 5 cm diverticular abscess in left lower quadrant - ct guided drainage yesterday, drain produced 75 cc overnight - cultures from drainage show gram negative jose, fungal cultures negative - patient continues to have fevers - cont antibiotics doxycycline and zosyn - heart healthy diet - CMV, HIV, TB and syphillis negative - repeat blood cultures are negative after 24 hours - hold asa and plavix - will repeat ct scan in 3-4 days - ID following - GI consulted - IR following - surgery consulted 2. anemia - decreased to 7.3 - possibly due to IVF rehydrate during the procedure - transfuse 2 unit prbc - baseline of 10 - cont Feosol 324 TID - Heme recommends serum protein and electrophoresis to r/o bone marrow disorder - GI following - heme following 3. CAD - recent NSTEMI s/p angioplasty and LAD bare metal stent - cont ASA, plavix, metoprolol, valsartan 320, metoprolol 25, lipitor 40 - cardiology following 4. HLD - cont lipitor 40 5. CHF- diastolic - echo on 05/24 showed grade I- abnormal relaxation pattern - CXR: no acute disease - Continue home lasix 40 6. HTN - stable - cont valsartan 320, Lasix 40, metoprolol 25 XL - If persistently high, consider adding 5mg amlodipine 7. Deconditioning - PT/OT - OOB 8. Alzheimer - cont Donepezil 10 daily 9. Osteoporosis - on Fosamax 70 every friday Consult: - Infectious disease - Dr. Jarvis Sampson - Mash Processing Operator - Dr. Vinayak Lee - Cardiology- Dr. Wolfe - GI- Dr. Archuleta - Heme/onc- Dr. Banda - IR- Dr. Lesia Zaldivar - Surgery- Dr. Keita
--- NOTE | 2016-05-30 18:31 | CP.PCM.PN ---
Subjective - Date & Time of Evaluation Date of Evaluation: 05/30/16 Time of Evaluation: 17:00 - Subjective Subjective: Infectious Disease Follow Up: May 30, 2016 85 yo female initially admitted for worsening shortness of breath and orthopnea. She had a productive cough. No fevers or chills at time of admission. She has a history of hypertension, GI bleed, CAD with stents, anemia , and osteoporosis. Many of her hospitalizations last year were for GI bleed. Blood cultures in early hospitalization showed E. coli in both bottles. Patient received treatment with Rocephin for E. coli bacteremia and completed the course of antibiotics. In the TRCU, the patient had multiple temperature spikes up to 101.9 F overnight on Friday to Friday a week ago. The patient denies any symptoms at this point in time. She does not recall feeling bad or uncomfortable over night. Blood and urine cultures resent showing only coagulase negative staph in urine cultures. Chest X-ray did not show any particular findings. Patient was given Zyvox for treatment. The coagulase negative staph is showing a large number of resistances. Afebrile currently. Patient herself make little complaints. Given the persistence of these borderline fevers, would check the ESR, CRP, and repeat the urine studies. Noted the most recent X-ray of the chest that did not show signs of pneumonia at this point. ESR and CRP show significant elevation. Off antibiotic for about 72 hours now. No specific complaints. Fevers with temperature up to 101.6 F today. Repeat blood cultures have been negative at 48 hours. Awaiting urine culture and urinalysis results. On Doxycycline and Zosyn currently. Inflammatory markers remain high with ESR of 81 and CRP of >15. The patient has no complaints and doesn't realize when she has fevers. She states that she doesn't feel them. Both blood and urine cultures have been negative. Last blood culture was 3 days ago and urine culture done yesterday. Fever of unknown origin. Persistent fevers. Persistent elevation of inflammatory markers. Moved back to the medical floors. CT scan displayed a 5 cm diverticular abscess. Interventional Radiology consulted. IR drained 75cc of fluid. Still with fevers up to 101.6 F. Objective - Vital Signs/Intake and Output Vital Signs (last 24 hours): Temp Pulse Resp BP Pulse Ox 99.2 F 78 20 147/78 99 03/16/17 17:33 05/30/16 17:33 05/30/16 17:33 05/30/16 17:33 05/30/16 16:00 Intake and Output: 05/30/16 05/30/16 06:59 18:59 Intake Total 3060 960 Output Total 75 Balance 2985 960 - Medications Medications: Current Medications Acetaminophen (Tylenol 325mg Tab) 650 mg PO Q4H PRN PRN Reason: Fever >100.4 F Last Admin: 05/30/16 12:24 Dose: 650 mg Albuterol/Ipratropium (Duoneb 3 Mg/0.5 Mg (3 Ml) Ud) 3 ml IH [id number] [facility] Last Admin: 05/30/16 13:31 Dose: 3 ml Alendronate Sodium (Fosamax) 70 mg PO Q7D [facility] Aspirin (Aspirin Chewable) 81 mg PO DAILY [facility] Last Admin: 05/29/16 10:40 Dose: Not Given Atorvastatin Calcium (Lipitor) 40 mg PO DIN [facility] Last Admin: 05/30/16 17:18 Dose: 40 mg Camphor/Menthol (Bengay) 0 gm TOP QID [facility] Last Admin: 05/30/16 17:18 Dose: 1 applic Docusate Sodium (Colace) 100 mg PO TID [facility] Last Admin: 05/30/16 17:18 Dose: Not Given Donepezil HCl (Aricept) 10 mg PO HS [facility] Last Admin: 05/29/16 22:12 Dose: 10 mg Ferrous Sulfate (Feosol) 324 mg PO BID [facility] Last Admin: 05/30/16 17:18 Dose: 324 mg Doxycycline Hyclate 100 mg/ (Sodium Chloride) 100 mls @ 100 mls/hr IVPB Q12 [facility] PRN Reason: Protocol Last Admin: 05/30/16 09:37 Dose: 100 mls/hr Piperacillin Sod/Tazobactam Sod (Zosyn 3.375 In Ns 100ml) 100 mls @ 200 mls/hr IVPB Q6 [facility] PRN Reason: Protocol Stop: 06/03/16 06:29 Last Admin: 05/30/16 11:00 Dose: 200 mls/hr Metoprolol Tartrate (Lopressor) 50 mg PO BID [facility] Last Admin: 05/30/16 17:28 Dose: 50 mg Ondansetron HCl (Zofran Inj) 4 mg IVP Q6H PRN PRN Reason: Nausea/Vomiting Oxycodone/Acetaminophen (Percocet 5/325 Mg Tab) 1 tab PO Q4H PRN PRN Reason: Pain, moderate (4-7) Stop: 06/01/16 15:23 Valsartan (Diovan) 320 mg PO DAILY [facility] Last Admin: 05/30/16 09:36 Dose: 320 mg - Labs Labs: 05/30/16 06:50 05/30/16 06:50 PT 13.6 Seconds (9.9-11.8) H 05/29/16 11:15 INR 1.26 (0.93-1.08) H 05/29/16 11:15 APTT 36.1 Seconds (23.7-30.8) H 05/29/16 11:15 - Constitutional Appears: Non-toxic, No Acute Distress, Chronically Ill - Head Exam Head Exam: ATRAUMATIC, NORMOCEPHALIC - Eye Exam Eye Exam: EOMI, PERRL Pupil Exam: NORMAL ACCOMODATION, PERRL - ENT Exam ENT Exam: Mucous Membranes Moist, Normal External Ear Exam, TM's Normal Bilaterally - Neck Exam Neck Exam: Full ROM, Normal Inspection - Respiratory Exam Respiratory Exam: Clear to Ausculation Bilateral, NORMAL BREATHING PATTERN. absent: Rales, Rhonchi, Wheezes - Cardiovascular Exam Cardiovascular Exam: REGULAR RHYTHM, RRR, +S1, +S2 - GI/Abdominal Exam GI & Abdominal Exam: Soft, Normal Bowel Sounds. absent: Distended, Tenderness - Extremities Exam Extremities Exam: Full ROM, Normal Inspection - Neurological Exam Neurological Exam: Alert, Awake, Oriented x3 - Psychiatric Exam Psychiatric exam: Normal Affect, Normal Mood - Skin Skin Exam: Intact, Normal Color Assessment and Plan - Assessment and Plan (Free Text) Assessment: 85 yo AA female readmitted to the medical floor for persistent fevers with no obvious source. The patient had CT performed that displayed a diverticular abscess. Interventional radiology consults for drainage. Cultures and pathology should be send if material is drainable from the abscess. Cannot rule out drug fever yet on the patient. If drainable, drainage of the diverticular abscess may defervesce the patient. If it does not or the abscess is not drainable, may have to look for another source of the patient's fever. IR drained the diverticular abscess yesterday. Currently on Doxycycline and Zosyn. Gram negative jose from aspirated fluid from diverticular abscess. Thank you for allowing me to participate in the care of the patient, we will follow with you.
[2016-05-31] MEDS: Albuterol-Ipratrop 3 mg / 0.5 (3 ml) UD IH SCH ×4 (02:09→19:30)
[2016-05-31 02:58] LABS: TOTAL PROTEIN, SERUM 5.2 g/dL (6.1-8.1)
[2016-05-31] MEDS: Piperacillin/Tazobact 3.375 gm 100 ML IVPB SCH ×2 (05:32→11:50)
[2016-05-31 06:46] LABS: ADD MANUAL DIFF? NO
[2016-05-31 07:16] LABS: ALB/GLOB RATIO 0.7 (1.1-1.8); ALKALINE PHOSPHATASE 89 U/L (38-133); ALT/SGPT 16 U/L (7-56); AST/SGOT 29 U/L (15-39); BLOOD UREA NITROGEN 7 mg/dL (7-21); CARBON DIOXIDE 22 mmol/L (21-33); CHLORIDE 108 mmol/L (98-107); GFR AFRICAN-AMERICAN > 60; GLUCOSE,RANDOM 79 mg/dL (70-110); POTASSIUM 3.6 mmol/L (3.6-5.0); SODIUM 137 mmol/L (132-148); TOTAL PROTEIN 5.9 g/dL (5.8-8.3)
[2016-05-31 07:17] LABS: BASO # 0.01 K/mm3 (0.0-2.0); BASO % 0.2 % (0.0-3.0); EOS # 0.1 (0.0-0.7); EOS % 1.3 % (1.5-5.0); GRAN % 64.8 % (50.0-68.0); HEMATOCRIT 30.7 % (36.0-48.0); LYMPH # 1.5 (1.2-3.4); LYMPH % 24.4 % (22.0-35.0); MEAN CELL VOLUME 89.5 fL (80.0-105.0); MEAN CORPUSCULAR HEMOGLOBIN 29.7 pg (25.0-35.0); MEAN CORPUSCULAR HGB CONC 33.2 g/dl (31.0-37.0); MEAN PLATELET VOLUME 9.8 fl (7.0-11.0); MONO # 0.6 (0.1-0.6); MONO % 9.3 % (1.0-6.0); PLATELET COUNT 236 10^3/uL (120.0-450.0); RED CELL DISTRIBUTION WIDTH 14.8 % (11.5-14.5); WHITE BLOOD COUNT 6.2 10^3/ul (4.5-11.0)
--- NOTE | 2016-05-31 08:00 | CP.PCM.PN ---
Subjective - Date & Time of Evaluation Date of Evaluation: 05/31/16 Time of Evaluation: 07:41 - Subjective Subjective: PROGRESS NOTE FOR SURGERY DR. ESPINAL 85 year old female is seen and examined at bedside. No acute events overnight. Patient is tolerating diet. Denies N/V/D/C. 1 bowel movement yesterday normal in nature. Serosanguineous fluid in drain. Objective - Vital Signs/Intake and Output Vital Signs (last 24 hours): Temp Pulse Resp BP Pulse Ox 98.1 F 68 19 146/75 99 05/31/16 04:19 05/31/16 04:19 05/31/16 04:19 05/31/16 04:19 05/30/16 16:00 Intake and Output: 05/31/16 05/31/16 06:59 18:59 Intake Total 925 Balance 925 - Medications Medications: Current Medications Acetaminophen (Tylenol 325mg Tab) 650 mg PO Q4H PRN PRN Reason: Fever >100.4 F Last Admin: 05/31/16 01:05 Dose: 650 mg Albuterol/Ipratropium (Duoneb 3 Mg/0.5 Mg (3 Ml) Ud) 3 ml IH [id number] [facility] Last Admin: 05/31/16 02:09 Dose: Not Given Alendronate Sodium (Fosamax) 70 mg PO Q7D [facility] Aspirin (Aspirin Chewable) 81 mg PO DAILY [facility] Last Admin: 05/29/16 10:40 Dose: Not Given Atorvastatin Calcium (Lipitor) 40 mg PO DIN [facility] Last Admin: 05/30/16 17:18 Dose: 40 mg Camphor/Menthol (Bengay) 0 gm TOP QID [facility] Last Admin: 05/30/16 21:41 Dose: 1 applic Docusate Sodium (Colace) 100 mg PO TID [facility] Last Admin: 05/30/16 17:18 Dose: Not Given Donepezil HCl (Aricept) 10 mg PO HS [facility] Last Admin: 05/30/16 21:40 Dose: 10 mg Ferrous Sulfate (Feosol) 324 mg PO BID [facility] Last Admin: 05/30/16 17:18 Dose: 324 mg Doxycycline Hyclate 100 mg/ (Sodium Chloride) 100 mls @ 100 mls/hr IVPB Q12 [facility] PRN Reason: Protocol Last Admin: 05/30/16 21:55 Dose: 100 mls/hr Piperacillin Sod/Tazobactam Sod (Zosyn 3.375 In Ns 100ml) 100 mls @ 200 mls/hr IVPB Q6 [facility] PRN Reason: Protocol Stop: 06/03/16 06:29 Last Admin: 05/31/16 05:32 Dose: 200 mls/hr Metoprolol Tartrate (Lopressor) 50 mg PO BID [facility] Last Admin: 05/30/16 17:28 Dose: 50 mg Ondansetron HCl (Zofran Inj) 4 mg IVP Q6H PRN PRN Reason: Nausea/Vomiting Oxycodone/Acetaminophen (Percocet 5/325 Mg Tab) 1 tab PO Q4H PRN PRN Reason: Pain, moderate (4-7) Stop: 06/01/16 15:23 Valsartan (Diovan) 320 mg PO DAILY [facility] Last Admin: 05/30/16 09:36 Dose: 320 mg - Labs Labs: 05/31/16 06:20 05/31/16 06:20 PT 13.6 Seconds (9.9-11.8) H 05/29/16 11:15 INR 1.26 (0.93-1.08) H 05/29/16 11:15 APTT 36.1 Seconds (23.7-30.8) H 05/29/16 11:15 - Constitutional Appears: Non-toxic, No Acute Distress - Head Exam Head Exam: ATRAUMATIC, NORMAL INSPECTION - ENT Exam ENT Exam: Mucous Membranes Moist - Respiratory Exam Respiratory Exam: absent: Accessory Muscle Use, Respiratory Distress - Cardiovascular Exam Cardiovascular Exam: REGULAR RHYTHM, +S1, +S2. absent: Gallop, Rubs, Murmur - GI/Abdominal Exam GI & Abdominal Exam: Soft, Normal Bowel Sounds. absent: Distended, Firm, Rigid , Tenderness - Neurological Exam Neurological Exam: Alert, Awake, Oriented x3 - Psychiatric Exam Psychiatric exam: Normal Affect, Normal Mood - Skin Skin Exam: Dry, Intact, Normal Color, Warm Assessment and Plan - Assessment and Plan (Free Text) Assessment: 85 year old female is seen of diverticular abscess s/p IR drainage POD 2 - Continue to monitor output of drain - Continue Abx per ID recs - Diet as tolerated - GI/DVT prophylaxis Will discuss with Dr. Espinal for further recs Alta Viveros PGY1
--- NOTE | 2016-05-31 09:16 | PN ---
DATE: 05/31/2016 SUBJECTIVE: The patient appears comfortable this morning. She is not short of breath at rest. PHYSICAL EXAMINATION: VITAL SIGNS: Temperature is 98.1, pulse 68, respirations 19, blood pressure 146 /75. Oxygen saturation on room air is 99%. HEENT: Normocephalic, atraumatic. No JVD. CARDIOVASCULAR: Systolic ejection murmur at the lower left sternal border. No S3 gallop. LUNGS: Minimal crackles at the bases. No rhonchi. No wheezing. EXTREMITIES: Mild edema. No cyanosis, no clubbing. Calves are nontender to palpation. GASTROINTESTINAL: Abdomen is soft, nontender, nondistended. Bowel sounds are positive. There is a left lower quadrant drain in place. SKIN: No acute rash. NEUROLOGIC: Limited at the present time. IMPRESSION: 1. Diverticular abscess. Status post drainage procedure. 2. Sepsis syndrome. 3. Status post acute myocardial infarction. 4. Status post bilateral pneumonia. 5. Status post congestive heart failure. 6. Acute bronchitis -- resolving. PLAN: The patient appears very comfortable this morning. She is not short of breath at rest. She states she is feeling much better overall. On physical exam, no significant bronchospasm is noted. In addition, the oxygen saturation on room air is now 99%. I will continue with the current nebulizer treatments for now. The patient remains on antibiotic therapy -- as per infectious disease. Temperatures have now resolved. Inputs by surgery and GI are noted. Clinical status of the patient is certainly improved -- compared to a few days ago. However, the overall status/prognosis of this patient remains very guarded. The patient is advised to increase her activity as tolerated. I will discuss the above with Dr. Diaz. Vinayak Lee MD cc: [id number] TT: 05/31/2016 09:15:50 Confirmation # [id number] Dictation # [id number] [id number]
[2016-05-31] MEDS: Menthol/Methyl Salicylate Ointment(1 oz) TOP SCH ×4 (09:51→21:42)
--- NOTE | 2016-05-31 09:52 | CP.PCM.PN ---
Subjective - Date & Time of Evaluation Date of Evaluation: 05/31/16 Time of Evaluation: 09:49 - Subjective Subjective: PGY-1 Medicine Progress note. Patient seen and examined at bedside. No acute distress. Patient states she is feeling much better. She states her appetite has improved. She deneis abd pain, n/v/d/c/ fever, chills, chest pain, SOB. Nurse reports over night patient had max temp of 99. She received 2 units of pRBC yesterday. Her LLQ drain produced 75mc of brown fluid overnight. Nurse reporst no major events overnight. Objective - Vital Signs/Intake and Output Vital Signs (last 24 hours): Temp Pulse Resp BP Pulse Ox 98.6 F 75 20 165/87 H 99 05/31/16 07:51 05/31/16 07:51 05/31/16 07:51 05/31/16 07:51 05/31/16 07:51 Intake and Output: 05/31/16 05/31/16 06:59 18:59 Intake Total 925 Balance 925 - Medications Medications: Current Medications Acetaminophen (Tylenol 325mg Tab) 650 mg PO Q4H PRN PRN Reason: Fever >100.4 F Last Admin: 05/31/16 01:05 Dose: 650 mg Albuterol/Ipratropium (Duoneb 3 Mg/0.5 Mg (3 Ml) Ud) 3 ml IH [id number] [facility] Last Admin: 05/31/16 08:42 Dose: 3 ml Alendronate Sodium (Fosamax) 70 mg PO Q7D [facility] Aspirin (Aspirin Chewable) 81 mg PO DAILY [facility] Last Admin: 05/29/16 10:40 Dose: Not Given Atorvastatin Calcium (Lipitor) 40 mg PO DIN [facility] Last Admin: 05/30/16 17:18 Dose: 40 mg Camphor/Menthol (Bengay) 0 gm TOP QID [facility] Last Admin: 05/30/16 21:41 Dose: 1 applic Docusate Sodium (Colace) 100 mg PO TID [facility] Last Admin: 05/30/16 17:18 Dose: Not Given Donepezil HCl (Aricept) 10 mg PO HS [facility] Last Admin: 05/30/16 21:40 Dose: 10 mg Ferrous Sulfate (Feosol) 324 mg PO BID [facility] Last Admin: 05/30/16 17:18 Dose: 324 mg Doxycycline Hyclate 100 mg/ (Sodium Chloride) 100 mls @ 100 mls/hr IVPB Q12 JENNIFER PRN Reason: Protocol Last Admin: 05/30/16 21:55 Dose: 100 mls/hr Piperacillin Sod/Tazobactam Sod (Zosyn 3.375 In Ns 100ml) 100 mls @ 200 mls/hr IVPB Q6 JENNIFER PRN Reason: Protocol Stop: 06/03/16 06:29 Last Admin: 05/31/16 05:32 Dose: 200 mls/hr Metoprolol Tartrate (Lopressor) 50 mg PO BID [facility] Last Admin: 05/30/16 17:28 Dose: 50 mg Ondansetron HCl (Zofran Inj) 4 mg IVP Q6H PRN PRN Reason: Nausea/Vomiting Oxycodone/Acetaminophen (Percocet 5/325 Mg Tab) 1 tab PO Q4H PRN PRN Reason: Pain, moderate (4-7) Stop: 06/01/16 15:23 Valsartan (Diovan) 320 mg PO DAILY [facility] Last Admin: 05/30/16 09:36 Dose: 320 mg - Labs Labs: 05/31/16 06:20 05/31/16 06:20 PT 13.6 Seconds (9.9-11.8) H 05/29/16 11:15 INR 1.26 (0.93-1.08) H 05/29/16 11:15 APTT 36.1 Seconds (23.7-30.8) H 05/29/16 11:15 - Constitutional Appears: Well, No Acute Distress - Head Exam Head Exam: ATRAUMATIC, NORMOCEPHALIC - Eye Exam Eye Exam: Normal appearance - ENT Exam ENT Exam: Mucous Membranes Moist - Respiratory Exam Respiratory Exam: Clear to Ausculation Bilateral, NORMAL BREATHING PATTERN. absent: Rhonchi, Wheezes, Respiratory Distress - Cardiovascular Exam Cardiovascular Exam: REGULAR RHYTHM. absent: Tachycardia, Murmur - GI/Abdominal Exam GI & Abdominal Exam: Soft, Normal Bowel Sounds. absent: Distended, Firm, Guarding, Tenderness Additional comments: Dress in LLQ is clean, dry and intact. Drain in place, with brown fluid. - Extremities Exam Extremities Exam: Normal Inspection. absent: Pedal Edema - Neurological Exam Neurological Exam: Alert, Awake, Oriented x3 - Skin Skin Exam: Dry, Intact, Normal Color, Warm Assessment and Plan - Assessment and Plan (Free Text) Assessment: 85 F whose PMH includes hypertension, GI bleed, CAD with stents, anemia, osteoporosis, and h/o recent E-coli bacteremia presents from TCU with persistent fevers. Pt has a persistent fluctuating fever for [address] abd showed diverticular abscess, 5 cm. Abscess was drained under CT guidance. She was started on zosyn and doxycycline. Plan: 1. diverticular abscess - CT chest, abd, pelvis showed 5 cm diverticular abscess in left lower quadrant - ct guided drainage, drain produced 75 cc overnight - cultures from drainage show gram postive cocci and e. coli, fungal cultures negative - patient was afebrile overnight - cont antibiotics doxycycline and zosyn - heart healthy diet - CMV, HIV, TB and syphillis negative - repeat blood cultures are negative after 24 hours - will repeat ct scan 3-4 days after procedure - ID following - GI following - IR following - surgery follwing 2. anemia - decreased to 7.3 yesterday morning - transfused 2 unit of prbc yesterday - Hgb this AM was 10.2 - baseline of 10 - cont Feosol 324 TID - Heme recommends serum protein and electrophoresis to r/o bone marrow disorder - will continue to monitor - GI following - heme following - TCU evaluation 3. CAD - recent NSTEMI s/p angioplasty and LAD bare metal stent - cont ASA, plavix, metoprolol, valsartan 320, metoprolol 25, lipitor 40 - cardiology following 4. HLD - cont lipitor 40 5. CHF- diastolic - echo on 05/25 showed grade I- abnormal relaxation pattern - CXR: no acute disease - Continue home lasix 40 6. HTN - stable - cont valsartan 320, Lasix 40, metoprolol 25 XL - If persistently high, consider adding 5mg amlodipine 7. Deconditioning - PT/OT - OOB 8. Alzheimer - cont Donepezil 10 daily 9. Osteoporosis - on Fosamax 70 every friday Consult: - Infectious disease - Dr. Jarvis Sampson - Nursing Staffing Coordinator - Dr. Vinayak Lee - Cardiology- Dr. Wolfe - GI- Dr. Archuleta - Heme/onc- Dr. Banda - IR- Dr. Lesia Zaldivar - Surgery- Dr. Keita
[2016-05-31 09:56] LABS: BETA 1 GLOBULIN 0.3 g/dL (0.4-0.6); BETA 2 GLOBULIN 0.4 g/dL (0.2-0.5); GAMMA GLOBULIN 0.9 g/dL (0.8-1.7)
[2016-05-31] MEDS ORDERED: Lidocaine 2% Inj (20ml) ONE (15:43)
--- NOTE | 2016-05-31 16:25 | CP.PCM.PN ---
Subjective - Date & Time of Evaluation Date of Evaluation: 05/31/16 Time of Evaluation: 14:00 - Subjective Subjective: Infectious Disease Follow Up: May 31, 2016 85 yo female initially admitted for worsening shortness of breath and orthopnea. She had a productive cough. No fevers or chills at time of admission. She has a history of hypertension, GI bleed, CAD with stents, anemia , and osteoporosis. Many of her hospitalizations last year were for GI bleed. Blood cultures in early hospitalization showed E. coli in both bottles. Patient received treatment with Rocephin for E. coli bacteremia and completed the course of antibiotics. In the TRCU, the patient had multiple temperature spikes up to 101.9 F overnight on Friday to Friday a week ago. The patient denies any symptoms at this point in time. She does not recall feeling bad or uncomfortable over night. Blood and urine cultures resent showing only coagulase negative staph in urine cultures. Chest X-ray did not show any particular findings. Patient was given Zyvox for treatment. The coagulase negative staph is showing a large number of resistances. Afebrile currently. Patient herself make little complaints. Given the persistence of these borderline fevers, would check the ESR, CRP, and repeat the urine studies. Noted the most recent X-ray of the chest that did not show signs of pneumonia at this point. ESR and CRP show significant elevation. Off antibiotic for about 72 hours now. No specific complaints. Fevers with temperature up to 101.6 F today. Repeat blood cultures have been negative at 48 hours. Awaiting urine culture and urinalysis results. On Doxycycline and Zosyn currently. Inflammatory markers remain high with ESR of 81 and CRP of >15. The patient has no complaints and doesn't realize when she has fevers. She states that she doesn't feel them. Both blood and urine cultures have been negative. Last blood culture was 3 days ago and urine culture done yesterday. Fever of unknown origin. Persistent fevers. Persistent elevation of inflammatory markers. Moved back to the medical floors. CT scan displayed a 5 cm diverticular abscess. Interventional Radiology consulted. IR drained 75cc of fluid. Still with fevers up to 101.6 F yesterday. Afebrile today. Objective - Vital Signs/Intake and Output Vital Signs (last 24 hours): Temp Pulse Resp BP Pulse Ox 98.6 F 75 20 165/87 H 99 05/31/16 07:51 05/31/16 09:52 05/31/16 07:51 05/31/16 09:52 05/31/16 07:51 Intake and Output: 05/31/16 05/31/16 06:59 18:59 Intake Total 925 600 Output Total 250 Balance 925 350 - Medications Medications: Current Medications Acetaminophen (Tylenol 325mg Tab) 650 mg PO Q4H PRN PRN Reason: Fever >100.4 F Last Admin: 05/31/16 01:05 Dose: 650 mg Albuterol/Ipratropium (Duoneb 3 Mg/0.5 Mg (3 Ml) Ud) 3 ml IH [id number] [facility] Last Admin: 05/31/16 13:49 Dose: 3 ml Alendronate Sodium (Fosamax) 70 mg PO Q7D [facility] Last Admin: 05/31/16 11:30 Dose: 70 mg Aspirin (Aspirin Chewable) 81 mg PO DAILY [facility] Last Admin: 05/29/16 10:40 Dose: Not Given Atorvastatin Calcium (Lipitor) 40 mg PO DIN [facility] Last Admin: 05/30/16 17:18 Dose: 40 mg Camphor/Menthol (Bengay) 0 gm TOP QID [facility] Last Admin: 05/31/16 13:11 Dose: 1 applic Docusate Sodium (Colace) 100 mg PO TID [facility] Last Admin: 05/31/16 13:11 Dose: Not Given Donepezil HCl (Aricept) 10 mg PO HS [facility] Last Admin: 05/30/16 21:40 Dose: 10 mg Ferrous Sulfate (Feosol) 324 mg PO BID [facility] Last Admin: 05/31/16 09:52 Dose: 324 mg Cefepime HCl (Maxipime 1gm) 100 mls @ 100 mls/hr IVPB Q12 JENNIFER PRN Reason: Protocol Stop: 06/14/16 22:01 Metoprolol Tartrate (Lopressor) 50 mg PO BID [facility] Last Admin: 05/31/16 09:52 Dose: 50 mg Ondansetron HCl (Zofran Inj) 4 mg IVP Q6H PRN PRN Reason: Nausea/Vomiting Oxycodone/Acetaminophen (Percocet 5/325 Mg Tab) 1 tab PO Q4H PRN PRN Reason: Pain, moderate (4-7) Stop: 06/01/16 15:23 Valsartan (Diovan) 320 mg PO DAILY [facility] Last Admin: 05/31/16 09:51 Dose: 320 mg - Labs Labs: 05/31/16 06:20 05/31/16 06:20 PT 13.6 Seconds (9.9-11.8) H 05/29/16 11:15 INR 1.26 (0.93-1.08) H 05/29/16 11:15 APTT 36.1 Seconds (23.7-30.8) H 05/29/16 11:15 - Constitutional Appears: Non-toxic, No Acute Distress, Chronically Ill - Head Exam Head Exam: ATRAUMATIC, NORMOCEPHALIC - Eye Exam Eye Exam: EOMI, PERRL Pupil Exam: NORMAL ACCOMODATION, PERRL - ENT Exam ENT Exam: Mucous Membranes Moist, Normal External Ear Exam, TM's Normal Bilaterally - Neck Exam Neck Exam: Full ROM, Normal Inspection - Respiratory Exam Respiratory Exam: Clear to Ausculation Bilateral, NORMAL BREATHING PATTERN. absent: Rales, Rhonchi, Wheezes - Cardiovascular Exam Cardiovascular Exam: REGULAR RHYTHM, RRR, +S1, +S2 - GI/Abdominal Exam GI & Abdominal Exam: Soft, Normal Bowel Sounds. absent: Distended, Tenderness - Extremities Exam Extremities Exam: Full ROM, Normal Inspection - Neurological Exam Neurological Exam: Alert, Awake, CN II-XII Intact, Oriented x3 - Psychiatric Exam Psychiatric exam: Normal Affect, Normal Mood - Skin Skin Exam: Intact, Normal Color Assessment and Plan - Assessment and Plan (Free Text) Assessment: 85 yo AA female readmitted to the medical floor for persistent fevers with no obvious source. The patient had CT performed that displayed a diverticular abscess. Interventional radiology consults for drainage. Cultures and pathology should be send if material is drainable from the abscess. Cannot rule out drug fever yet on the patient. If drainable, drainage of the diverticular abscess may defervesce the patient. If it does not or the abscess is not drainable, may have to look for another source of the patient's fever. IR drained the diverticular abscess yesterday. Currently on Doxycycline and Zosyn. Gram negative jose from aspirated fluid from diverticular abscess. Identified as E. coli and gram positive cocci. The E. coli is sensitive to Cefepime and Ceftriaxone. Supportive care. Will need 14 days of antibiotics. Still await to see what the gram positive cocci is. Thank you for allowing me to participate in the care of the patient, we will follow with you.
--- NOTE | 2016-05-31 17:08 | VASCULAR ---
PROCEDURE: Ultrasound and fluoroscopically placed left upper extremity PICC line. HISTORY: Left lower quadrant abscess. Needs long-term IV antibiotics. Needs PICC line. PHYSICIAN(S): Esa Zaldivar MD. TECHNIQUE: The relative risks and indications of the procedure were explained to the patient and consent obtained. The patient was placed supine on the arteriogram table and the left arm prepped and draped in the usual sterile fashion. A tourniquet was applied to the left axilla. 1% Xylocaine was used to anesthetize the skin and soft tissues at the puncture site above the elbow. The left brachial vein was punctured under direct ultrasound guidance with a micropuncture set. A 0.018 guidewire was advanced centrally and used to measure the length to the SVC/RA junction. A 5 Faroese single-lumen PICC line 45 cm long was advanced to the SVC/RA junction. The catheter was flushed and secured. The patient tolerated the procedure well. IMPRESSION: 1. Ultrasound and fluoroscopically placed left upper extremity PICC line. A 5 Faroese single-lumen PICC line 45 cm long was advanced to the SVC/RA junction.
[2016-05-31 17:14] VITALS: RESP 18
[2016-05-31] MEDS ORDERED: Cefepime 1gm in NS 100ml 100 ML IVPB SCH (22:00)
[2016-06-01] MEDS: Albuterol-Ipratrop 3 mg / 0.5 (3 ml) UD IH SCH ×3 (01:26→13:47)
[2016-06-01 07:18] LABS: ADD MANUAL DIFF? NO
[2016-06-01 07:24] LABS: EOS # 0.1 (0.0-0.7); EOS % 2.1 % (1.5-5.0); GRAN # 3.69 (1.4-6.5); GRAN % 64.7 % (50.0-68.0); HEMATOCRIT 28.8 % (36.0-48.0); LYMPH # 1.3 (1.2-3.4); MEAN CELL VOLUME 90.9 fL (80.0-105.0); MEAN CORPUSCULAR HEMOGLOBIN 30.3 pg (25.0-35.0); MEAN CORPUSCULAR HGB CONC 33.3 g/dl (31.0-37.0); MEAN PLATELET VOLUME 10.4 fl (7.0-11.0); MONO # 0.6 (0.1-0.6); MONO % 10.2 % (1.0-6.0); PLATELET COUNT 253 10^3/uL (120.0-450.0); RED CELL DISTRIBUTION WIDTH 14.7 % (11.5-14.5); WHITE BLOOD COUNT 5.7 10^3/ul (4.5-11.0)
[2016-06-01 07:47] LABS: ALB/GLOB RATIO 0.8 (1.1-1.8); ALKALINE PHOSPHATASE 81 U/L (38-133); ALT/SGPT 18 U/L (7-56); AST/SGOT 28 U/L (15-39); BILIRUBIN,TOTAL 0.6 mg/dL (0.2-1.3); BLOOD UREA NITROGEN 7 mg/dL (7-21); CALCIUM 8.2 mg/dL (8.4-10.5); CARBON DIOXIDE 25 mmol/L (21-33); CHLORIDE 108 mmol/L (98-107); GFR AFRICAN-AMERICAN > 60; GLUCOSE,RANDOM 81 mg/dL (70-110); POTASSIUM 3.6 mmol/L (3.6-5.0); SODIUM 138 mmol/L (132-148); TOTAL PROTEIN 5.5 g/dL (5.8-8.3)
[2016-06-01 07:58] VITALS: BP 160/85; PULSE 70; TEMP 98.1; O2SAT 97
[2016-06-01] MEDS: Menthol/Methyl Salicylate Ointment(1 oz) TOP SCH ×2 (10:17→13:16)
--- NOTE | 2016-06-01 12:07 | CP.PCM.DIS ---
Provider - Provider Date of Admission: 05/27/16 19:20 Attending physician: Praful Diaz MD Primary care physician: Praful Diaz MD Time Spent in preparation of Discharge (in minutes): 45 Hospital Course - Lab Results Lab Results: Micro Results 05/29/16 15:40 Other: Please Indicate Gram Stain - Final 05/29/16 15:40 Other: Please Indicate Body Fluid Culture - Final Escherichia Coli Vancomycin Resistant E.faecium 05/27/16 21:25 Blood Blood Culture - Preliminary NO GROWTH AFTER 4 DAYS 05/29/16 09:30 Urine,Clean Catch Urine Culture - Final Yeast Species 05/29/16 15:40 Abscess - Abscess Anaerobic Culture - Final NO ANAEROBES ISOLATED. 05/29/16 15:40 Abscess - Abscess Fungal Culture - Preliminary Most Recent Lab Values WBC 5.7 10^3/ul (4.5-11.0) 06/01/16 07:15 RBC 3.17 10^6/uL (3.5-6.1) L 06/01/16 07:15 Hgb 9.6 gm/dL (12.0-16.0) L 06/01/16 07:15 Hct 28.8 % (36.0-48.0) L 06/01/16 07:15 MCV 90.9 fL (80.0-105.0) 06/01/16 07:15 MCH 30.3 pg (25.0-35.0) 06/01/16 07:15 MCHC 33.3 g/dl (31.0-37.0) 06/01/16 07:15 RDW 14.7 % (11.5-14.5) H 06/01/16 07:15 Plt Count 253 10^3/uL (120.0-450.0) 06/01/16 07:15 MPV 10.4 fl (7.0-11.0) 06/01/16 07:15 Gran % 64.7 % (50.0-68.0) 06/01/16 07:15 Lymph % (Auto) 23.0 % (22.0-35.0) 06/01/16 07:15 Mcculloch % (Auto) 10.2 % (1.0-6.0) H 06/01/16 07:15 Eos % (Auto) 2.1 % (1.5-5.0) 06/01/16 07:15 Baso % (Auto) 0.0 % (0.0-3.0) 06/01/16 07:15 Gran # 3.69 (1.4-6.5) 06/01/16 07:15 Lymph # 1.3 (1.2-3.4) 06/01/16 07:15 [place]ulloch # 0.6 (0.1-0.6) 06/01/16 07:15 Eos # 0.1 (0.0-0.7) 06/01/16 07:15 Baso # 0.00 K/mm3 (0.0-2.0) 06/01/16 07:15 PT 13.6 Seconds (9.9-11.8) H 05/29/16 11:15 INR 1.26 (0.93-1.08) H 05/29/16 11:15 APTT 36.1 Seconds (23.7-30.8) H 05/29/16 11:15 Sodium 138 mmol/L (132-148) 06/01/16 07:15 Potassium 3.6 mmol/L (3.6-5.0) 06/01/16 07:15 Chloride 108 mmol/L (98-107) H 06/01/16 07:15 Carbon Dioxide 25 mmol/L (21-33) 06/01/16 07:15 Anion Gap 9 (10-20) L 06/01/16 07:15 BUN 7 mg/dL (7-21) 06/01/16 07:15 Creatinine 0.5 mg/dL (0.5-1.4) 06/01/16 07:15 Est GFR ( Amer) > 60 06/01/16 07:15 Est GFR (Non-Af Amer) > 60 06/01/16 07:15 Random Glucose 81 mg/dL (70-110) 06/01/16 07:15 Calcium 8.2 mg/dL (8.4-10.5) L 06/01/16 07:15 Phosphorus 2.7 mg/dL (2.5-4.5) 05/28/16 04:30 Magnesium 2.0 mg/dL (1.7-2.2) 05/28/16 04:30 Iron 10 ug/dL (45-180) L 05/28/16 07:30 TIBC 220 ug/dL (265-497) L 05/28/16 07:30 % Saturation 5 % (20-55) L 05/28/16 07:30 Ferritin 164.0 ng/mL 05/28/16 07:30 Total Bilirubin 0.6 mg/dL (0.2-1.3) 06/01/16 07:15 AST 28 U/L (15-39) 06/01/16 07:15 ALT 18 U/L (7-56) 06/01/16 07:15 Alkaline Phosphatase 81 U/L (38-133) 06/01/16 07:15 Lactate Dehydrogenase 458 U/L (333-699) 05/28/16 04:30 Total Protein 5.5 g/dL (5.8-8.3) L 06/01/16 07:15 Total Protein (PEP) 5.2 g/dL (6.1-8.1) L 05/30/16 11:00 Albumin 2.4 g/dL (3.0-4.8) L 06/01/16 07:15 Albumin (PEP) 2.2 g/dL (3.8-4.8) L 05/30/16 11:00 Globulin 3.1 gm/dL 06/01/16 07:15 Albumin/Globulin Ratio 0.8 (1.1-1.8) L 06/01/16 07:15 Zhtay-4-Tushufzld 0.5 g/dL (0.2-0.3) H 05/30/16 11:00 Btlao-2-Mgivxsmjs 0.8 g/dL (0.5-0.9) 05/30/16 11:00 Ckhz-4-Soxggteq 0.3 g/dL (0.4-0.6) L 05/30/16 11:00 Gyrj-4-Iztxhaly 0.4 g/dL (0.2-0.5) 05/30/16 11:00 Gamma Globulins 0.9 g/dL (0.8-1.7) 05/30/16 11:00 Abnorm Protein Band 1 TEST NOT PERFORMED 05/30/16 11:00 Abnorm Protein Band 2 TEST NOT PERFORMED 05/30/16 11:00 Abnorm Protein Band 3 TEST NOT PERFORMED 05/30/16 11:00 Vitamin B12 383 pg/mL (239-931) 05/28/16 07:30 Folate 11.3 ng/mL 05/28/16 07:30 Procalcitonin 0.18 NG/ML (0.19-0.49) L 05/28/16 07:00 Thyroxine (T4) 7.1 ug/dL (5.5-11.0) 05/28/16 07:30 Total T3 0.59 ng/mL (0.97-1.69) L 05/28/16 07:30 TSH 3rd Generation 3.68 mIU/mL (0.46-4.68) 05/28/16 07:30 Urine Color Yellow (YELLOW) 05/29/16 09:30 Urine Appearance Clear (CLEAR) 05/29/16 09:30 Urine pH 6.0 (4.7-8.0) 05/29/16 09:30 Ur Specific [place] 1.020 (1.005-1.035) 05/29/16 09:30 Urine Protein Negative mg/dL (<30 mg/dL) 05/29/16 09:30 Urine Glucose (UA) Negative mg/dL (NEGATIVE) 05/29/16 09:30 Urine Ketones Negative mg/dL (NEGATIVE) 05/29/16 09:30 Urine Blood Trace-intact (NEGATIVE) H 05/29/16 09:30 Urine Nitrate Negative (NEGATIVE) 05/29/16 09:30 Urine Bilirubin Negative (NEGATIVE) 05/29/16 09:30 Urine Urobilinogen 0.2 E.U./dL (<1 E.U./dL) 05/29/16 09:30 Ur Leukocyte Esterase Negative Keli/uL (NEGATIVE) 05/29/16 09:30 Urine RBC 0 - 2 /hpf (0-2) 05/29/16 09:30 Urine WBC 1 - 3 /hpf (0-6) 05/29/16 09:30 Ur Epithelial Cells 4 - 5 /hpf (0-5) 05/29/16 09:30 Urine Bacteria Few (NEG) 05/29/16 09:30 Urine Other Uyeast 05/29/16 09:30 SHERICE & SPEP Interp See note (()) 05/30/16 11:00 Blood Type O POSITIVE 05/30/16 11:00 Antibody Screen Negative 05/30/16 11:00 Crossmatch See Detail 05/30/16 11:00 BBK History Checked Patient has bt 05/30/16 11:00 - Hospital Course Hospital Course: 85 year old female, whose past medical history includes whose past medical history includes hypertension, GI bleed, CAD with stents, anemia, and osteoporosis, who intially presents on 04/28 with progressively worsening shortness of breath and associated orthopnea. Se was admitted and treated for PNA. Pt was found to have NSTEMI and E-coli bacteremia. During the hospital stay , Bacteremia is cleared. Repeat blood cultures was negative. Pt was transferred from hospital to TCU on 05/04/16. ID cleared her for cardiac catheterization. Cardiac catherterization showed LAD 80% stenosis. PTCA and LAD stent with bare metal stent and balloon angioplasty.In the TCU Pt had a persistent fluctuating fever. She was treatd fro UTI with Zyvox. However she continued to have persistent fevers without leukocytosis or complain of any symptoms. Repeat blood and urine cultures were neagtive. Patient was also negative for TB, TB, CMV, HIV, latent syphilis. She was readmitted into the hospital. Ct of chest, abd and pelvis showed diverticular abscess. IR was consulted and the abscess was drained, and a drain was placed. Cultures from the LLQ abscess were positive for e.coli and VREF. She was started on antibiotics. PT recommended sub acute rehab. Discharge Instructions are to follow up with Primary Care Doctor, Dr. Diaz, in 1-2 weeks, follow up with Cadmium Plater and monitor technician in 2-4 weeks.New medicine added are Cefepime, Zyvox, Metoprolol, Lipitor, feosol, Proair. Patient is aware of hospital course and diagnoses. Discharge instructions were discussed with patient and she is in agreement. Discharge Diagnoses are Diverticular abscess, Iron deficiency Anemia, Hyperlipidemia, h/o CHF, Hypertension, Mild pulmonary hypertension. Discharge Exam - Head Exam Head Exam: ATRAUMATIC, NORMOCEPHALIC - Eye Exam Eye Exam: Normal appearance - ENT Exam ENT Exam: Mucous Membranes Moist - Respiratory Exam Respiratory Exam: Clear to PA & Lateral, NORMAL BREATHING PATTERN, UNREMARKABLE. absent: Rales, Rhonchi, Wheezes, Respiratory Distress, Stridor - Cardiovascular Exam Cardiovascular Exam: REGULAR RHYTHM. absent: Tachycardia, Diastolic murmur, Systolic Murmur - GI/Abdominal Exam GI & Abdominal Exam: Normal Bowel Sounds, Soft. absent: Distended, Firm, Tenderness Additional comments: Dressing is clean, dry and intact. Drain is in place. - Extremities Exam Extremities exam: normal inspection - Neurological Exam Neurological exam: Alert, Oriented x3 - Skin Skin Exam: Dry, Intact, Normal Color, Warm Discharge Plan - Discharge Medications Prescriptions: Cefepime [Maxipime] 1 gm IV Q12 #0 vial Linezolid 600 mg in D5W 300 ml [Zyvox 600mg/300ml D5W] 600 mg IVPB Q12H #0 bag - Follow Up Plan Condition: GOOD Disposition: TRANSF TO [facility] Instructions: Coronary Artery Disease (DC), Pneumococcal Vaccine for Adults (DC ), Heart Healthy Diet (DC), Peripherally Inserted Central Catheters and Midline Catheters (DC), Influenza Vaccine (DC), Vancomycin Resistant Enterococcus Infection (DC), Chronic Hypertension (DC), Abscess (GEN), Anemia (DC), Fall Prevention (DC) Additional Instructions: Discharge Instructions 1. Follow up with Primary Care Doctor, Dr. Diaz, in 1-2 weeks. 2. Follow up with Cadmium Plater, Dr. Wolfe, in 2-4 weeks. 3. Follow up with monitor technician, Dr. Banda, in 2-4 weeks. 4. Any new symptoms appear, call primary care doctor or go to the emergency room. Medication Adjustment New Medicine - Cefepime 1gm IVPB Q12h x 10 days -Zyvox 600mg IVPB Q12h x 10 days - Metoprolol twice daily - Lipitor - feosol three times daily - Proair as needed Fosamax same Asa same docusate same donepezil same valsartan same Nexium same Discontinue fenofibrate, lasix, metoprolol once daily, feosol once daily, Imdur Discharge Diagnosis Diverticular abscess Iron deficiency Anemia Hyperlipidemia h/o CHF Hypertention Deconditioning Mild pulmonary hypertension Hx Alzheimer Hx Osteoporosis Referrals: Praful Diaz MD [Primary Care Provider] - Piper Banda MD [Staff Provider] - Esa Wolfe MD [Staff Provider] -
--- NOTE | 2016-06-01 14:24 | PN ---
DATE: 06/01/2016 The patient is feeling better and looking better. The abdomen is soft, nontender. The drain is tate rkable for dark drainage consistent with a stool-like issue. Repeat the CT scan in a day or 2 but fo r now is improved. Vital signs are normal. Sony Keita MD cc: [id number] TT: 06/01/2016 14:23:12 Confirmation # [id number] Dictation # [id number] cn
--- NOTE | 2016-06-01 15:59 | CP.PCM.PN ---
Subjective - Date & Time of Evaluation Date of Evaluation: 06/01/16 Time of Evaluation: 13:45 - Subjective Subjective: Infectious Disease Follow Up: June 01, 2016 85 yo female initially admitted for worsening shortness of breath and orthopnea. She had a productive cough. No fevers or chills at time of admission. She has a history of hypertension, GI bleed, CAD with stents, anemia , and osteoporosis. Many of her hospitalizations last year were for GI bleed. Blood cultures in early hospitalization showed E. coli in both bottles. Patient received treatment with Rocephin for E. coli bacteremia and completed the course of antibiotics. In the [facility], the patient had multiple temperature spikes up to 101.9 F overnight on Friday to Friday a week ago. The patient denies any symptoms at this point in time. She does not recall feeling bad or uncomfortable over night. Blood and urine cultures resent showing only coagulase negative staph in urine cultures. Chest X-ray did not show any particular findings. Patient was given Zyvox for treatment. The coagulase negative staph is showing a large number of resistances. Afebrile currently. Patient herself make little complaints. Given the persistence of these borderline fevers, would check the ESR, CRP, and repeat the urine studies. Noted the most recent X-ray of the chest that did not show signs of pneumonia at this point. ESR and CRP show significant elevation. Off antibiotic for about 72 hours now. No specific complaints. Fevers with temperature up to 101.6 F today. Repeat blood cultures have been negative at 48 hours. Awaiting urine culture and urinalysis results. On Doxycycline and Zosyn currently. Inflammatory markers remain high with ESR of 81 and CRP of >15. The patient has no complaints and doesn't realize when she has fevers. She states that she doesn't feel them. Both blood and urine cultures have been negative. Last blood culture was 3 days ago and urine culture done yesterday. Fever of unknown origin. Persistent fevers. Persistent elevation of inflammatory markers. Moved back to the medical floors. CT scan displayed a 5 cm diverticular abscess. Interventional Radiology consulted. IR drained 75cc of fluid. Still with fevers up to 101.6 F yesterday. Afebrile for over 24 hours. Cultures showing VRE and E.coli. On Cefepime IV now. Objective - Vital Signs/Intake and Output Vital Signs (last 24 hours): Temp Pulse Resp BP Pulse Ox 98.1 F 70 18 160/85 H 97 06/01/16 07:57 06/01/16 10:17 06/01/16 07:57 06/01/16 10:17 06/01/16 07:57 Intake and Output: 06/01/16 06/01/16 06:59 18:59 Intake Total 520 960 Output Total 40 Balance 520 920 - Medications Medications: Current Medications Acetaminophen (Tylenol 325mg Tab) 650 mg PO Q4H PRN PRN Reason: Fever >100.4 F Last Admin: 05/31/16 17:22 Dose: 650 mg Albuterol/Ipratropium (Duoneb 3 Mg/0.5 Mg (3 Ml) Ud) 3 ml IH [id number] [facility] Last Admin: 06/01/16 13:47 Dose: 3 ml Alendronate Sodium (Fosamax) 70 mg PO Q7D [facility] Last Admin: 05/31/16 11:30 Dose: 70 mg Aspirin (Aspirin Chewable) 81 mg PO DAILY [facility] Last Admin: 05/29/16 10:40 Dose: Not Given Atorvastatin Calcium (Lipitor) 40 mg PO DIN [facility] Last Admin: 05/31/16 17:22 Dose: 40 mg Camphor/Menthol (Bengay) 0 gm TOP QID [facility] Last Admin: 06/01/16 13:16 Dose: Not Given Docusate Sodium (Colace) 100 mg PO TID [facility] Last Admin: 06/01/16 13:16 Dose: Not Given Donepezil HCl (Aricept) 10 mg PO HS [facility] Last Admin: 05/31/16 21:33 Dose: 10 mg Ferrous Sulfate (Feosol) 324 mg PO BID [facility] Last Admin: 06/01/16 10:17 Dose: 324 mg Cefepime HCl (Maxipime 1gm) 100 mls @ 100 mls/hr IVPB Q12 JENNIFER PRN Reason: Protocol Stop: 06/14/16 22:01 Last Admin: 05/31/16 21:33 Dose: 100 mls/hr Linezolid (Zyvox 600mg/300ml D5w) 300 mls @ 200 mls/hr IVPB Q12 JENNIFER PRN Reason: Protocol Stop: 06/11/16 22:01 Metoprolol Tartrate (Lopressor) 50 mg PO BID [facility] Last Admin: 06/01/16 10:17 Dose: 50 mg Ondansetron HCl (Zofran Inj) 4 mg IVP Q6H PRN PRN Reason: Nausea/Vomiting Valsartan (Diovan) 320 mg PO DAILY [facility] Last Admin: 06/01/16 10:17 Dose: 320 mg - Labs Labs: 06/01/16 07:15 06/01/16 07:15 PT 13.6 Seconds (9.9-11.8) H 05/29/16 11:15 INR 1.26 (0.93-1.08) H 05/29/16 11:15 APTT 36.1 Seconds (23.7-30.8) H 05/29/16 11:15 - Constitutional Appears: Non-toxic, No Acute Distress - Head Exam Head Exam: ATRAUMATIC, NORMOCEPHALIC - Eye Exam Eye Exam: EOMI, PERRL Pupil Exam: NORMAL ACCOMODATION, PERRL - ENT Exam ENT Exam: Mucous Membranes Moist, Normal External Ear Exam, TM's Normal Bilaterally - Neck Exam Neck Exam: Full ROM, Normal Inspection - Respiratory Exam Respiratory Exam: Clear to Ausculation Bilateral, NORMAL BREATHING PATTERN. absent: Rales, Rhonchi, Wheezes - Cardiovascular Exam Cardiovascular Exam: REGULAR RHYTHM, RRR, +S1, +S2 - GI/Abdominal Exam GI & Abdominal Exam: Soft, Normal Bowel Sounds. absent: Distended, Tenderness - Extremities Exam Extremities Exam: Full ROM, Normal Inspection - Neurological Exam Neurological Exam: Alert, Awake, CN II-XII Intact, Oriented x3 - Psychiatric Exam Psychiatric exam: Normal Affect, Normal Mood - Skin Skin Exam: Intact, Normal Color Assessment and Plan - Assessment and Plan (Free Text) Assessment: 85 yo AA female readmitted to the medical floor for persistent fevers with no obvious source. The patient had CT performed that displayed a diverticular abscess. Interventional radiology consults for drainage. Cultures and pathology should be send if material is drainable from the abscess. Cannot rule out drug fever yet on the patient. If drainable, drainage of the diverticular abscess may defervesce the patient. If it does not or the abscess is not drainable, may have to look for another source of the patient's fever. IR drained the diverticular abscess yesterday. Gram negative jose from aspirated fluid from diverticular abscess. Identified as E. coli and gram positive cocci. The E. coli is sensitive to Cefepime and Ceftriaxone. Supportive care. Will need 14 days of antibiotics. Still await to see what the gram positive cocci is - which came out to be VRE. On Zyvox and Cefepime for antibiotic coverage. Thank you for allowing me to participate in the care of the patient, we will follow with you.
[2016-06-01] MEDS ORDERED: Linezolid 600 mg in D5W 300 ml 300 ML IVPB SCH (22:00)
--- NOTE | 2016-06-03 19:00 | PQF SEPSIS ---
06/03/16 Dr. Sampson, This query is directed to you per Dr. Lee. Dr. Lee documents "sepsis syndrome" on his progress notes of 05/29, 05/30, and 05/31. Did this patient have a systemic sepsis? If so, was this present on admission? Thank you. Clarification of your documentation is requested to better reflect the severity of illness and intensity of treatment of your patient. Indicators present [X] Temp < 96.8 or > 100.4 [] WBC count > 12,000/mm3 or <000/mm3 or 10% immature neutrophils [] Heart Rate > 90 [] Respiratory Rate > 20 [] Fever or hypothermia [] Chills [] Positive blood cultures [] Hypotension [] Metabolic acidosis (Elevated lactate level, anion gap or reduced blood pH) [] Acute confusion /Altered Mental Status [] Shock [X] Other: [Diverticular abscess] Location in the medical record that reflects the above clinical findings: [] Treatment Provided: [IV antibiotics] PHYSICIAN'S RESPONSE Based on your medical judgment of the clinical indicators outlined above, are you treating this patient for a known or suspected: [X] Sepsis / Septicemia Please specify organism if known [E. coli, VRE] [] SIRS (Systemic Inflammatory Response Syndrome) [] Severe Sepsis (Sepsis with Associated Organ Dysfunction) [] Fever of Unknown Origin [] Other, please indicate: [] [] If Unable to Determine, please check the box, sign and date. Present On Admission (POA) Indicator: [] Present at the time of admission [X] Not present at the time of admission [] Clinically Undetermined In responding to this query, please exercise your independent professional judgment. The fact that a question is asked does not imply that any particular answer is desired or expected. Thank you for your clarification on this documentation. If you have any questions please call:[ ] * Thank you, [ ] beautician apprentice REAGAN
== END 2016-06-01 16:43 | DRG 391 ==
LOC: 5RNO 19:20 → 5RSO 05-29 22:13
PROVIDERS: ADMIT Internal Medicine; ATTEND Internal Medicine
PROC: BW20YZZ Computerized Tomography (CT Scan) of Abdomen using Other Contrast (ICD-10-PCS; 2016-05-29)
PROC: 0W9J30Z Drainage of Pelvic Cavity with Drainage Device, Percutaneous Approach (ICD-10-PCS; principal; 2016-05-29 15:00)
PROC: 02HV33Z Insertion of Infusion Device into Superior Vena Cava, Percutaneous Approach (ICD-10-PCS; 2016-05-31)
PROC: B548ZZA Ultrasonography of Superior Vena Cava, Guidance (ICD-10-PCS; 2016-05-31)
DX: K57.80 Diverticulitis of intestine, part unspecified, with perforation and abscess without bleeding (principal); A41.51 Sepsis due to Escherichia coli [E. coli]; I27.2 Other secondary pulmonary hypertension; K92.2 Gastrointestinal hemorrhage, unspecified; I50.9 Heart failure, unspecified; G30.9 Alzheimer's disease, unspecified; F02.80 Dementia in other diseases classified elsewhere, unspecified severity, without behavioral disturbance, psychotic disturbance, mood disturbance, and anxiety; B96.20 Unspecified Escherichia coli [E. coli] as the cause of diseases classified elsewhere; D72.821 Monocytosis (symptomatic); E78.00 Pure hypercholesterolemia, unspecified; I10 Essential (primary) hypertension; I25.118 Atherosclerotic heart disease of native coronary artery with other forms of angina pectoris; I25.2 Old myocardial infarction; Z95.5 Presence of coronary angioplasty implant and graft; Z87.01 Personal history of pneumonia (recurrent); J20.9 Acute bronchitis, unspecified; K21.9 Gastro-esophageal reflux disease without esophagitis; M81.0 Age-related osteoporosis without current pathological fracture; Z87.440 Personal history of urinary (tract) infections; Z87.442 Personal history of urinary calculi; Z90.49 Acquired absence of other specified parts of digestive tract; Z90.710 Acquired absence of both cervix and uterus; E78.5 Hyperlipidemia, unspecified; R53.81 Other malaise; D50.9 Iron deficiency anemia, unspecified; H26.9 Unspecified cataract; R60.0 Localized edema; Z16.21 Resistance to vancomycin

== ENCOUNTER 2016-07-30 15:46 | Inpatient (IN) | payer MEDICARE, MEDICAID ==
[2016-07-30 15:56] VITALS: BMI 22.3
[2016-07-30] MEDS ORDERED: Iohexol 240 (50 ml) ONE ×2 (16:54→16:56)
[2016-07-30 17:12] LABS: ADD MANUAL DIFF? NO
[2016-07-30 17:18] LABS: VENOUS BLOOD GAS BASE EXCESS -2.1 mmol/L (0.0-2.0); VENOUS BLOOD PH 7.31 (7.32-7.43)
[2016-07-30 17:25] LABS: BASO # 0.01 K/mm3 (0.0-2.0); BASO % 0.1 % (0.0-3.0); EOS % 0.1 % (1.5-5.0); GRAN # 10.15 (1.4-6.5); HEMATOCRIT 26.1 % (36.0-48.0); LYMPH # 1.3 (1.2-3.4); LYMPH % 9.7 % (22.0-35.0); MEAN CELL VOLUME 90.3 fL (80.0-105.0); MEAN CORPUSCULAR HEMOGLOBIN 28.4 pg (25.0-35.0); MEAN CORPUSCULAR HGB CONC 31.4 g/dl (31.0-37.0); MEAN PLATELET VOLUME 9.1 fl (7.0-11.0); MONO # 1.7 (0.1-0.6); MONO % 13.1 % (1.0-6.0); PLATELET COUNT 450 10^3/uL (120.0-450.0); RED CELL DISTRIBUTION WIDTH 20.2 % (11.5-14.5); WHITE BLOOD COUNT 13.2 10^3/ul (4.5-11.0)
[2016-07-30 17:41] LABS: INR 1.19 (0.93-1.08); PARTIAL THROMBOPLASTIN TIME 28.7 Seconds (23.7-30.8)
[2016-07-30 18:01] LABS: ALB/GLOB RATIO 0.7 (1.1-1.8); ALKALINE PHOSPHATASE 227 U/L (38-133); ALT/SGPT 30 U/L (7-56); AST/SGOT 45 U/L (15-39); BLOOD UREA NITROGEN 15 mg/dL (7-21); CALCIUM 8.1 mg/dL (8.4-10.5); CARBON DIOXIDE 24 mmol/L (21-33); CHLORIDE 97 mmol/L (98-107); GFR AFRICAN-AMERICAN > 60; GLUCOSE,RANDOM 74 mg/dL (70-110); SODIUM 128 mmol/L (132-148); TOTAL PROTEIN 6.5 g/dL (5.8-8.3)
[2016-07-30 18:04] LABS: POTASSIUM 4.6 mmol/L (3.6-5.0)
--- NOTE | 2016-07-30 18:12 | ED PDOC ---
Arrival/HPI - General Historian: Patient - General Chief Complaint: Abnormal Skin Integrity Time Seen by Provider: 07/30/16 15:50 - History of Present Illness Narrative History of Present Illness (Text): 07/30/16 18:06 86yr old female presents today sent in by surgeon for foul smelling purulent drainage from side of abdomen. pt with prior hx of diverticular abscess s/p CT guided drainage. pt c/o weakness, decreased appetite. pt denies cp or sob. no vomiting/diarrhea. no headaches or weakness. denies fever/chills at home. no other complaints. (Tiarra Mott) Past Medical History - Provider Review Nursing Documentation Reviewed: Yes - Travel History Have you recently traveled outside [place] w/in the past 3 mons?: No - Infectious Disease Hx of Infectious Diseases: None - Tetanus Immunization Tetanus Immunization: Unknown - Cardiac Hx Cardiac Disorders: Yes (angioplasty) Hx Congestive Heart Failure: Yes Hx Heart Murmur: Yes Hx Hypertension: Yes Hx Peripheral Edema: Yes - Pulmonary Hx Respiratory Disorders: No - Neurological Hx Neurological Disorder: No - HEENT Hx HEENT Disorder: Yes Hx Cataracts: Yes (left eye no sx) - Renal Hx Renal Disorder: Yes Hx Kidney Stones: Yes - Endocrine/Metabolic Hx Endocrine Disorders: No - Hematological/Oncological Hx Blood Disorders: Yes Hx Anemia: Yes (blood transfusions) - Integumentary Hx Dermatological Disorder: Yes (BILATERAL LEG EDEMA MAINLY TO FEET MORE TO LEFT.) Other/Comment: ble skin tight/edema - Musculoskeletal/Rheumatological Hx Musculoskeletal Disorders: No Hx Falls: No - Gastrointestinal Hx Gastrointestinal Disorders: Yes (DIVERTICULOSIS,HEMORRHOID,GI BLEED,RECTAL BLEED) Hx Gall Bladder Disease: Yes (gallstones) Hx Gastroesophageal Reflux: Yes Other/Comment: rectal bleed - Genitourinary/Gynecological Hx Genitourinary Disorders: Yes Hx Urinary Tract Infection: Yes - Psychiatric Hx Psychophysiologic Disorder: No Hx Substance Use: No - Surgical History Hx Cardiac Catheterization: Yes Hx Cholecystectomy: Yes Hx Coronary Stent: Yes Hx Hysterectomy: Yes - Anesthesia Hx Anesthesia Reactions: No Hx Malignant Hyperthermia: No - Suicidal Assessment Feels Threatened In Home Enviroment: No Family/Social History - Physician Review Nursing Documentation Reviewed: Yes Family/Social History: Unknown Family HX Smoking Status: Never Smoked Hx Alcohol Use: No Hx Substance Use: No Allergies/Home Meds Allergies/Adverse Reactions: Allergies No Known Allergies Allergy (Verified 07/30/16 15:58) Home Medications: Home Meds Medication Instructions Recorded Confirmed Aspirin [Aspirin EC] 81 mg PO DAILY 06/14/15 07/30/16 Donepezil HCl 10 mg PO DAILY 06/14/15 07/30/16 Valsartan [Diovan] 320 mg PO DAILY 06/14/15 07/30/16 Alendronate [Fosamax] 70 mg PO .WEEKLY 07/30/16 07/30/16 Omeprazole [Omeprazole] 20 mg PO DAILY 07/30/16 07/30/16 Review of Systems - Review of Systems Constitutional: Fatigue. absent: Fevers Respiratory: absent: SOB, Cough Cardiovascular: absent: Chest Pain, Palpitations Gastrointestinal: Abdominal Pain, Appetite Changes. absent: Constipation, Diarrhea, Nausea, Vomiting Genitourinary Female: absent: Dysuria, Frequency, Hematuria Musculoskeletal: absent: Back Pain, Neck Pain Skin: absent: Rash, Pruritis Neurological: absent: Headache Physical Exam Vital Signs Reviewed: Yes Temperature: Afebrile Blood Pressure: Normal Pulse: Regular Respiratory Rate: Normal Appearance: Positive for: Well-Appearing, Non-Toxic, Comfortable Pain Distress: None Mental Status: Positive for: Alert and Oriented X 3 - Systems Exam Head: Present: Atraumatic Mouth: Present: Moist Mucous Membranes Neck: Present: Normal Range of Motion Respiratory/Chest: Present: Clear to Auscultation, Good Air Exchange. No: Respiratory Distress, Accessory Muscle Use Cardiovascular: Present: Regular Rate and Rhythm, Normal S1, S2. No: Murmurs Abdomen: Present: Tenderness (minimal left sided abdominal tenderness with purulent discharge noted to wound to llq of the abdomen. ), Normal Bowel Sounds. No: Distention, Peritoneal Signs, Rebound Back: Present: Normal Inspection Neurological: Present: GCS=15, Speech Normal Skin: Present: Warm, Dry, Normal Color. No: Rashes Psychiatric: Present: Alert, Oriented x 3 Vital Signs Temp Pulse Resp BP Pulse Ox 07/30/16 18:40 99.6 F 65 18 132/64 100 07/30/16 15:55 99.1 F 68 16 134/69 100 Medical Decision Making ED Course and Treatment: I was available for consultation during PA evaluation. The chart was reviewed by me, and I agree with disposition. The documented history was done by the physician improvement coordinator. The documented physical exam was done by the physician improvement coordinator. The documented procedures were done by the physician improvement coordinator. (Otoniel Apple) 07/30/16 18:15 86yr old female sent in by surgeon for draining wound to llq of abdomen. case discussed with dr. barba. he would like CT of abd/pelvis with PO contrast. cbc: wbc:13.2 hgb; 8.2 Cmp; na; 128 UA: trace leukocytes inr1.19 type and screen o+ lactate; 1.5 cxr; wnl ct abd/pelvis:FINDINGS: Limitations: Lack of intravenous contrast limits evaluation of solid viscera Lower thorax: Heart size is normal.There is calcification of the mitral annulus. There are coronary calcifications. There is a pericardial effusion. There are bilateral pleural effusions slightly decreased since the prior study. There is bilateral lower lobe airspace disease. There is scarring at both lung bases. ABDOMEN: Liver: unremarkable Gallbladder and bile ducts: Gallbladder is not visualized. Common bile duct is mildly prominent. Pancreas: unremarkable Spleen: unremarkable Adrenals: unremarkable Kidneys and ureters: unremarkable Stomach and bowel: Stomach is incompletely distended which accentuates the gastric wall. Rotation is normal. Small bowel is mildly distended. There is proximal small bowel fold and wall prominence. There is distal ileal wall and fold thickening.. There is terminal ileal fold and wall thickening. There is no obstruction. Appendix is unremarkable. Colon is incompletely distended which limits evaluation. There is pancolonic diverticulosis. There is a fecal bolus in the rectum. There is rectal wall thickening. Appendix: See stomach and bowel PELVIS: Bladder: Bladder is almost empty. Reproductive: Uterus is absent. There are no adnexal masses. Subperitoneal space: There is edema in the presacral space. ABDOMEN and PELVIS: Intraperitoneal space: There is no free air in the abdomen. There is no free fluid. Bones/joints: Bony structures are osteopenic. There are degenerative changes in the spine. There are degenerative changes at the right hip. There are erosive changes at the left hip, unchanged. Soft tissues: There is been interval removal of the pigtail catheter from the left lower quadrant. There continues to be an inflammatory mass/abscess adjacent to the left iliacus muscle. Margins are difficult to define. There is air within the abscess. There is now emphysema in the left lower abdominal wall. There is edema and inflammation along the catheter tract. Vasculature: There are vascular calcifications. Lymph nodes: There is no pathologic adenopathy. IMPRESSION: Interval removal of left lower quadrant pigtail catheter with residual abscess containing air; inflammation and edema along the catheter tract; now with air tracking into the left lower abdominal wall; amaral diverticulosis; fecal impaction with rectal wall thickening, possible stercoral colitis; slight decrease in bilateral pleural effusions with residual airspace disease at both lung bases; continued small pericardial effusion Additional findings as described above. pt reassessment; resting comfortably; no distress. vitals stable. pt started on rocephin and flagyl. case discussed with dr. collazo covering for dr. diaz; accepts admission. case discussed with dr. diaz resident dr. ramirez case again discussed with dr. barba in depth regarding abscess and fecal impaction/ possible stercoral colitis; case discussed with certified ophthalmic surgical assistant; wilma; impression; intraabdominal abscess, leukocytosis, hyponatremia, anemia admit med/surg with ID and surgical consult . (Tiarra Mott) - Lab Interpretations Lab Results: 07/30/16 16:30 07/30/16 17:30 Lab Results 07/30/16 19:10: Urine Color Yellow, Urine Appearance Clear, Urine pH 6.0, Ur Specific [place] 1.020, Urine Protein Trace H, Urine Glucose (UA) Negative, Urine Ketones Negative, Urine Blood Negative, Urine Nitrate Negative, Urine Bilirubin Negative, Urine Urobilinogen 2.0 H, Ur Leukocyte Esterase Small H, Urine RBC Negative, Urine WBC 0 - 2, Ur Epithelial Cells 3 - 4, Amorphous Sediment Few, Urine Bacteria Neg, Urine Other [place] 07/30/16 18:55: Blood Type O POSITIVE, Antibody Screen Negative, BBK History Checked Patient has bt 07/30/16 17:30: Sodium 128 L, Chloride 97 L, Potassium 4.6, Carbon Dioxide 24, Anion Gap 12, BUN 15, Creatinine 0.5, Est GFR ( Amer) > 60, Est GFR (Non- Af Amer) > 60, Random Glucose 74, Calcium 8.1 L, Total Bilirubin 1.0, AST 45 H, ALT 30, Alkaline Phosphatase 227 H, Total Protein 6.5, Albumin 2.7 L, Globulin 3.8, Albumin/Globulin Ratio 0.7 L 07/30/16 16:30: pO2 49, VBG pH 7.31 L, VBG pCO2 49.0, VBG HCO3 24.7, VBG Total CO2 26.2, VBG O2 Sat (Calc) 83.8 H, VBG Base Excess -2.1 L, VBG Potassium 5.3 H , Sodium 130.0 L, Chloride 105.0, Glucose 79, Lactate 1.5, FiO2 21.0, Venous Blood Potassium 5.3 H 07/30/16 16:30: WBC 13.2 H D, RBC 2.89 L, Hgb 8.2 L, Hct 26.1 L, MCV 90.3, MCH 28.4, MCHC 31.4, RDW 20.2 H, Plt Count 450, MPV 9.1, Gran % 77.0 H, Lymph % ( Auto) 9.7 L, [place] % (Auto) 13.1 H, Eos % (Auto) 0.1 L, Baso % (Auto) 0.1, Gran # 10.15 H, Lymph # 1.3, [place] # 1.7 H, Eos # 0.0, Baso # 0.01 07/30/16 16:30: PT 12.9 H, INR 1.19 H, APTT 28.7 - RAD Interpretation Radiology Orders: 07/30/16 16:08 CHEST PORTABLE [RAD] Stat 07/30/16 16:17 ABD & PELVIS PO CONTRAST ONLY [CT] Stat - Medication Orders Current Medication Orders: Discontinued Medications Metronidazole (Flagyl) 500 mg in 100 mls @ 100 mls/hr IVPB STAT STA PRN Reason: Protocol Stop: 07/30/16 21:30 Ceftriaxone Sodium (Rocephin 1 Gram Ivpb) 1 gm in 100 mls @ 200 mls/hr IVPB STAT STA PRN Reason: Protocol Stop: 07/30/16 21:00 Last Admin: 07/30/16 21:19 Dose: 200 mls/hr Iohexol (Omnipaque 240 (50 Ml)) Confirm Administered Dose 50 ml .ROUTE .STK-MED ONE Stop: 07/30/16 16:55 Iohexol (Omnipaque 240 (50 Ml)) Confirm Administered Dose 50 ml .ROUTE .STK-MED ONE Stop: 07/30/16 16:57 Disposition/Present on Arrival - Present on Arrival Any Indicators Present on Arrival: Yes History of DVT/PE: No History of Uncontrolled Diabetes: No Urinary Catheter: No History of Decub. Ulcer: Yes History Surgical Site Infection Following: None - Disposition Have Diagnosis and Disposition been Completed?: Yes Disposition Time: 20:00 Patient Plan: Admission - Disposition Diagnosis: Intra-abdominal abscess, Anemia, Leukocytosis Disposition: HOSPITALIZED Patient Problems: Current Active Problems Problem Status Onset Anemia Acute Intra-abdominal abscess Acute Leukocytosis Acute Condition: FAIR Referrals: Praful Diaz MD [Primary Care Provider] - Follow up with primary
[2016-07-30 19:36] LABS: URINE BILIRUBIN NEGATIVE (NEGATIVE); URINE BLOOD NEGATIVE (NEGATIVE); URINE GLUCOSE (UA) NEGATIVE (NEGATIVE); URINE KETONE NEGATIVE (NEGATIVE); URINE LEUKOCYTE ESTERASE SMALL Leu/uL (NEGATIVE); URINE PROTEIN TRACE mg/dL (<30 mg/dL)
[2016-07-30 19:37] LABS: URINE APPEARANCE CLEAR (CLEAR); URINE COLOR YELLOW (YELLOW)
[2016-07-30 19:57] LABS: URINE BACTERIA NEG (NEG); URINE RBC NEGATIVE /hpf (0-2); URINE WBC 0 - 2 /hpf (0-6)
[2016-07-30 19:58] LABS: URINE AMORPHOUS SEDIMENT FEW
[2016-07-30] MEDS ORDERED: metroNIDAZOLE IV 500 mg/100 ml 500 MG/100 ML BAG IVPB STA (20:31)
[2016-07-30] MEDS ORDERED: cefTRIAXone 1 gm 1 GM/100 ML BAG IVPB STA (20:31)
--- NOTE | 2016-07-30 20:57 | CT ---
EXAM: CT Abdomen and Pelvis Without Intravenous Contrast CLINICAL HISTORY: 86 years old, female; Condition or disease; Abscess; Abscess location: Left abdomen; Additional info: Abdominal pain HX of diverticular abscess TECHNIQUE: Axial computed tomography images of the abdomen and pelvis without intravenous contrast. This CT exam was performed using one or more of the following dose reduction techniques: automated exposure control, adjustment of the mA and/or kV according to patient size, and/or use of iterative reconstruction technique. Coronal and sagittal reformatted images were created and reviewed. EXAM DATE/TIME: 07/30/2016 4:17 PM COMPARISON: CT - ABD PELVIS PO CONTRAST ONLY 06/17/2016 8:30:05 AM FINDINGS: Limitations: Lack of intravenous contrast limits evaluation of solid viscera Lower thorax: Heart size is normal.There is calcification of the mitral annulus. There are coronary calcifications. There is a pericardial effusion. There are bilateral pleural effusions slightly decreased since the prior study. There is bilateral lower lobe airspace disease. There is scarring at both lung bases. ABDOMEN: Liver: unremarkable Gallbladder and bile ducts: Gallbladder is not visualized. Common bile duct is mildly prominent. Pancreas: unremarkable Spleen: unremarkable Adrenals: unremarkable Kidneys and ureters: unremarkable Stomach and bowel: Stomach is incompletely distended which accentuates the gastric wall. Rotation is normal. Small bowel is mildly distended. There is proximal small bowel fold and wall prominence. There is distal ileal wall and fold thickening.. There is terminal ileal fold and wall thickening. There is no obstruction. Appendix is unremarkable. Colon is incompletely distended which limits evaluation. There is pancolonic diverticulosis. There is a fecal bolus in the rectum. There is rectal wall thickening. Appendix: See stomach and bowel PELVIS: Bladder: Bladder is almost empty. Reproductive: Uterus is absent. There are no adnexal masses. Subperitoneal space: There is edema in the presacral space. ABDOMEN and PELVIS: Intraperitoneal space: There is no free air in the abdomen. There is no free fluid. Bones/joints: Bony structures are osteopenic. There are degenerative changes in the spine. There are degenerative changes at the right hip. There are erosive changes at the left hip, unchanged. Soft tissues: There is been interval removal of the pigtail catheter from the left lower quadrant. There continues to be an inflammatory mass/abscess adjacent to the left iliacus muscle. Margins are difficult to define. There is air within the abscess. There is now emphysema in the left lower abdominal wall. There is edema and inflammation along the catheter tract. Vasculature: There are vascular calcifications. Lymph nodes: There is no pathologic adenopathy. IMPRESSION: Interval removal of left lower quadrant pigtail catheter with residual abscess containing air; inflammation and edema along the catheter tract; now with air tracking into the left lower abdominal wall; amaral diverticulosis; fecal impaction with rectal wall thickening, possible stercoral colitis; slight decrease in bilateral pleural effusions with residual airspace disease at both lung bases; continued small pericardial effusion Additional findings as described above.
--- NOTE | 2016-07-30 22:41 | CP.PCM.CON ---
History of Present Illness - History of Present Illness History of Present Illness: HPI: 85 y/o F w/ PMHx of HTN, GI bleed, diverticulosis, and CAD s/p stents was sent to ED by Dr. Keita. Patient has a history of diverticular abscess for which she had CT guided drainage w/ drain placement. Patient followed up in office today and was found to have purulent drainage from previous drain site in left lower quadrant. Patient was instructed to come to ED. Patient states she feels weak and has chills, but denies fevers. Patient also states she has decreased appetite. Currently denies headache/dizziness, chest pain/SOB, n/v/d , abdominal pain, dysuria. Patient reports passing flatus. PMHx: HTN, CAD s/p stenting, diverticulosis, anemia, GI bleed, osteoporosis, E. coli bacteremia NKDA PSHx: open cholecystectomy, hysterectomy, stents SHx: denies tobacco, EtOH, drug use. lives alone FHx: non-contributory Review of Systems - Review of Systems Review of Systems: 12 pt ROS reviewed, unremarkable; except as stated in HPI Past Patient History - Infectious Disease Hx of Infectious Diseases: None - Tetanus Immunizations Tetanus Immunization: Unknown - Past Medical History & Family History Past Medical History?: Yes - Past Social History Smoking Status: Never Smoked - CARDIAC Hx Cardiac Disorders: Yes (angioplasty) Hx Congestive Heart Failure: Yes Hx Heart Murmur: Yes Hx Hypertension: Yes Hx Peripheral Edema: Yes - PULMONARY Hx Respiratory Disorders: No - NEUROLOGICAL Hx Neurological Disorder: No - HEENT Hx HEENT Problems: Yes Hx Cataracts: Yes (left eye no sx) - RENAL Hx Chronic Kidney Disease: Yes Hx Kidney Stones: Yes - ENDOCRINE/METABOLIC Hx Endocrine Disorders: No - HEMATOLOGICAL/ONCOLOGICAL Hx Blood Disorders: Yes Hx Anemia: Yes (blood transfusions) - INTEGUMENTARY Hx Dermatological Problems: Yes (BILATERAL LEG EDEMA MAINLY TO FEET MORE TO LEFT.) Other/Comment: ble skin tight/edema - MUSCULOSKELETAL/RHEUMATOLOGICAL Hx Musculoskeletal Disorders: No Hx Falls: No - GASTROINTESTINAL Hx Gastrointestinal Disorders: Yes (DIVERTICULOSIS,HEMORRHOID,GI BLEED,RECTAL BLEED) Hx Gall Bladder Disease: Yes (gallstones) Hx Gastroesophageal Reflux: Yes Other/Comment: rectal bleed - GENITOURINARY/GYNECOLOGICAL Hx Genitourinary Disorders: Yes Hx Urinary Tract Infection: Yes - PSYCHIATRIC Hx Psychophysiologic Disorder: No Hx Substance Use: No - SURGICAL HISTORY Hx Cardiac Catheterization: Yes Hx Cholecystectomy: Yes Hx Coronary Stent: Yes Hx Hysterectomy: Yes - ANESTHESIA Hx Anesthesia Reactions: No Hx Malignant Hyperthermia: No Meds Allergies/Adverse Reactions: Allergies Allergy/AdvReac Type Severity Reaction Status Date / Time No Known Allergies Allergy Verified 07/30/16 15:58 - Medications Medications: Current Medications Metronidazole (Flagyl) 500 mg in 100 mls @ 100 mls/hr IVPB Q8 JENNIFER PRN Reason: Protocol Ceftriaxone Sodium (Rocephin 1 Gram Ivpb) 1 gm in 100 mls @ 100 mls/hr IVPB DAILY JENNIFER PRN Reason: Protocol Physical Exam - Constitutional Appears: No Acute Distress - Head Exam Head Exam: NORMOCEPHALIC - Eye Exam Eye Exam: Normal appearance - ENT Exam ENT Exam: Mucous Membranes Moist - Respiratory Exam Respiratory Exam: NORMAL BREATHING PATTERN - Cardiovascular Exam Cardiovascular Exam: +S1, +S2. absent: Tachycardia - GI/Abdominal Exam GI & Abdominal Exam: Soft. absent: Distended, Firm, Guarding, Rebound, Rigid, Tenderness - Extremities Exam Extremities exam: Negative for: calf tenderness - Neurological Exam Neurological exam: Alert, Oriented x3 - Psychiatric Exam Psychiatric exam: Normal Mood - Skin Skin Exam: Dry, Intact, Warm Results - Vital Signs Recent Vital Signs: Last Vital Signs Temp 99.6 F 07/30/16 18:40 Pulse 65 07/30/16 18:40 Resp 18 07/30/16 18:40 BP 132/64 07/30/16 18:40 Pulse Ox 100 07/30/16 18:40 - Labs Result Diagrams: 07/30/16 16:30 07/30/16 17:30 - Imaging and Cardiology CT scan - abdomen Status: Image reviewed by me, Report reviewed by me Assessment & Plan - Assessment and Plan (Free Text) Assessment: 86F w/ intra-abdominal abscess -NPO -IVF -Abx -Consult IR for drainage/ drain placement -Glycerin suppository -DVT/GI ppx -Serial abd exams -D/w Dr. Keita
--- NOTE | 2016-07-31 04:34 | CP.PCM.HP ---
History of Present Illness - History of Present Illness History of Present Illness: 86 year old female with past medical history of hypertension, CAD s/p stents, CHF, HLD, Alzheimer, diverticulosis, and diverticular abscess s/p drain placement and removal presents to [facility] complaining of purulent drainage from her left lower abdominal drain site. Patient had a routine follow up with surgeon Dr. Keita's office earlier this afternoon and was sent to the ED after discovering about her purulent drainage. The drainage is dark green in color. Patient has no pain in the area. Patient complains of decreased appetite and occasional loose bowel movements. She denies having headache, dizziness, fever, chills, shortness of breath, chest pain, abdominal pain, nausea, vomiting , or urinary symptoms. PMD: Dr. Diaz PMHx: hypertension, CAD s/p stents, CHF, diverticulosis, and diverticular abscess PSHx: cholecystectomy, hysterectomy, stents Allergy: NKDA Social Hx: denies tobacco, alcohol, or other drug use Family Hx: non contributory Home meds: lipitor, feosol, colace, fosamax, diovan, lopressor, donepezil, asa, omeprazole Present on Admission - Present on Admission Any Indicators Present on Admission: No History of DVT/PE: No History of Uncontrolled Diabetes: No Review of Systems - Constitutional Constitutional: As Per HPI, Weakness. absent: Chills, Fever, Headache - EENT Eyes: As Per HPI. absent: Discharge, Irritation Ears: As Per HPI. absent: Tinnitus, Dizziness Nose/Mouth/Throat: As Per HPI. absent: Nasal Discharge, Nasal Trauma - Cardiovascular Cardiovascular: As Per HPI. absent: Chest Pain, Chest Pain with Activity, Dyspnea, Edema - Respiratory Respiratory: As Per HPI. absent: Wheezing, Snoring, Stridor - Gastrointestinal Gastrointestinal: As Per HPI. absent: Constipation, Cramping, Nausea, Vomiting - Genitourinary Genitourinary: As Per HPI. absent: Urinary Frequency, Urinary Hesitance, Urinary Urgency - Musculoskeletal Musculoskeletal: As Per HPI. absent: Back Pain, Deformity, Joint Swelling - Integumentary Integumentary: As Per HPI, Wounds. absent: Pruritus, Swelling - Neurological Neurological: As Per HPI, Weakness. absent: Confusion, Dizziness, Numbness, Syncope, Tremor - Psychiatric Psychiatric: As Per HPI. absent: Anxiety, Confusion, Depression, Hallucinations - Endocrine Endocrine: As Per HPI - Hematologic/Lymphatic Hematologic: As Per HPI Past Patient History - Infectious Disease Hx of Infectious Diseases: None - Tetanus Immunizations Tetanus Immunization: Unknown - Past Medical History & Family History Past Medical History?: Yes - Past Social History Smoking Status: Never Smoked - CARDIAC Hx Cardiac Disorders: Yes (angioplasty) Hx Congestive Heart Failure: Yes Hx Heart Murmur: Yes Hx Hypertension: Yes Hx Peripheral Edema: Yes - PULMONARY Hx Respiratory Disorders: No - NEUROLOGICAL Hx Neurological Disorder: No - HEENT Hx HEENT Problems: Yes Hx Cataracts: Yes (left eye no sx) - RENAL Hx Chronic Kidney Disease: Yes Hx Kidney Stones: Yes - ENDOCRINE/METABOLIC Hx Endocrine Disorders: No - HEMATOLOGICAL/ONCOLOGICAL Hx Blood Disorders: Yes Hx Anemia: Yes (blood transfusions) - INTEGUMENTARY Hx Dermatological Problems: Yes (BILATERAL LEG EDEMA MAINLY TO FEET MORE TO LEFT.) Other/Comment: ble skin tight/edema - MUSCULOSKELETAL/RHEUMATOLOGICAL Hx Musculoskeletal Disorders: No Hx Falls: No - GASTROINTESTINAL Hx Gastrointestinal Disorders: Yes (DIVERTICULOSIS,HEMORRHOID,GI BLEED,RECTAL BLEED) Hx Gall Bladder Disease: Yes (gallstones) Hx Gastroesophageal Reflux: Yes Other/Comment: rectal bleed - GENITOURINARY/GYNECOLOGICAL Hx Genitourinary Disorders: Yes Hx Urinary Tract Infection: Yes - PSYCHIATRIC Hx Psychophysiologic Disorder: No Hx Substance Use: No - SURGICAL HISTORY Hx Cardiac Catheterization: Yes Hx Cholecystectomy: Yes Hx Coronary Stent: Yes Hx Hysterectomy: Yes - ANESTHESIA Hx Anesthesia Reactions: No Hx Malignant Hyperthermia: No Meds Allergies/Adverse Reactions: Allergies Allergy/AdvReac Type Severity Reaction Status Date / Time No Known Allergies Allergy Verified 07/30/16 15:58 Physical Exam - Constitutional Appears: Non-toxic, No Acute Distress - Head Exam Head Exam: NORMAL INSPECTION, NORMOCEPHALIC - Eye Exam Eye Exam: EOMI, Normal appearance, PERRL - ENT Exam ENT Exam: Mucous Membranes Moist - Neck Exam Neck exam: Positive for: Normal Inspection - Respiratory Exam Respiratory Exam: Clear to Auscultation Bilateral, NORMAL BREATHING PATTERN. absent: Rhonchi, Wheezes, Respiratory Distress - Cardiovascular Exam Cardiovascular Exam: REGULAR RHYTHM, RRR, +S1, +S2 - GI/Abdominal Exam GI & Abdominal Exam: Normal Bowel Sounds, Soft. absent: Tenderness Additional comments: Left lower abdominal drain site with active dark green drainage - Extremities Exam Extremities exam: Positive for: normal capillary refill, normal inspection, pedal pulses present. Negative for: pedal edema, tenderness - Back Exam Back exam: NORMAL INSPECTION - Neurological Exam Neurological exam: Alert, Oriented x3 - Psychiatric Exam Psychiatric exam: Normal Affect, Normal Mood - Skin Skin Exam: Dry, Normal Color, Warm Results - Vital Signs Recent Vital Signs: Last Vital Signs Temp 99.6 F 07/30/16 18:40 Pulse 72 07/30/16 23:48 Resp 16 07/30/16 23:48 BP 149/79 07/30/16 23:48 Pulse Ox 100 07/30/16 23:48 - Labs Result Diagrams: 07/30/16 16:30 07/30/16 17:30 Assessment & Plan - Assessment and Plan (Free Text) Assessment: 86 year old female with past medical history of hypertension, CAD s/p stents, CHF, diverticulosis, and diverticular abscess presents with dark green purulent drainage from her drain site Plan: Intra abdominal abscess -Leukocytosis 13.2, afebrile -CT scan showed residual abscess containing air; inflammation and edema along the catheter tract; amaral diverticulosis; fecal impaction with rectal wall thickening, possible stercoral colitis (see full report) -Follow up blood, urine and wound cultures -Rocephin and Flagyl IV -IVF NS @75ml/hr -Surgery consult, Dr. Keita help appreciated -IR consult for drainage procedure -NPO CAD -Resume ASA, plavix, metoprolol, valsartan, metoprolol, lipitor HLD -Resume lipitor CHF -CXR: no acute disease during this admission -Resume metoprolol HTN -Resume valsartan, metoprolol Alzheimer -Resume Donepezil 10mg daily Anemia -Resume Feosol 324mg TID Osteoporosis -Resume Fosamax 70mg every friday Prophylactic measures -Protonix for GI ppx -SCD for DVT ppx
[2016-07-31] MEDS: metroNIDAZOLE IV 500 mg/100 ml 500 MG/100 ML BAG IVPB SCH ×3 (05:50→21:57)
--- NOTE | 2016-07-31 07:35 | CP.PCM.PN ---
Subjective - Date & Time of Evaluation Date of Evaluation: 07/31/16 Time of Evaluation: 06:35 - Subjective Subjective: General Surgery Pt S&E, NAEO. Denies F/C, N/V, change in bowel habits, or abd pain. Reports continued drainage. No other C/O. Objective - Vital Signs/Intake and Output Vital Signs (last 24 hours): Temp Pulse Resp BP Pulse Ox 98.7 F 59 L 16 158/81 H 100 07/31/16 04:51 07/31/16 04:51 07/31/16 04:51 07/31/16 04:51 07/30/16 23:48 Intake and Output: 07/31/16 07/31/16 06:59 18:59 Intake Total 0 Balance 0 - Medications Medications: Current Medications Alendronate Sodium (Fosamax) 70 mg PO Q7D JENNIFER Aspirin (Ecotrin) 81 mg PO DAILY JENNIFER Atorvastatin Calcium (Lipitor) 40 mg PO DIN JENNIFER Docusate Sodium (Colace) 100 mg PO TID JENNIFER Donepezil HCl (Aricept) 10 mg PO HS JENNIFER Ferrous Sulfate (Feosol) 324 mg PO TID JENNIFER Metronidazole (Flagyl) 500 mg in 100 mls @ 100 mls/hr IVPB Q8 JENNIFER PRN Reason: Protocol Last Admin: 07/31/16 05:50 Dose: 100 mls/hr Ceftriaxone Sodium (Rocephin 1 Gram Ivpb) 1 gm in 100 mls @ 100 mls/hr IVPB DAILY JENNIFER PRN Reason: Protocol Sodium Chloride (Sodium Chloride 0.9%) 1,000 mls @ 75 mls/hr IV .[id number] JENNIFER Metoprolol Tartrate (Lopressor) 50 mg PO BID JENNIFER Pantoprazole Sodium (Protonix Ec Tab) 20 mg PO ACB JENNIFER Valsartan (Diovan) 320 mg PO DAILY JENNIFER - Labs Labs: PT 12.9 Seconds (9.9-11.8) H 07/30/16 16:30 INR 1.19 (0.93-1.08) H 07/30/16 16:30 APTT 28.7 Seconds (23.7-30.8) 07/30/16 16:30 - Constitutional Appears: Non-toxic, No Acute Distress - Head Exam Head Exam: ATRAUMATIC, NORMOCEPHALIC - Eye Exam Eye Exam: EOMI. absent: Scleral icterus - Respiratory Exam Respiratory Exam: NORMAL BREATHING PATTERN. absent: Respiratory Distress - GI/Abdominal Exam GI & Abdominal Exam: Soft. absent: Distended, Firm, Guarding, Rigid, Tenderness Additional comments: No LLQ TTP, no erythema. Purulent drainage from LLQ, Dressing changed - Rectal Exam Rectal Exam: Deferred - Neurological Exam Neurological Exam: Alert, Awake - Skin Skin Exam: Dry, Warm Assessment and Plan - Assessment and Plan (Free Text) Assessment: 86F w/ intra-abdominal abscess Plan: -NPO -IVF -Abx -F/U with IR for ? drainage/drain placement Will D/W Dr. Boudreaux, covering for Dr. Bossman Azevedo PGY3
[2016-07-31 07:40] LABS: ADD MANUAL DIFF? NO
[2016-07-31 07:53] LABS: BASO # 0.01 K/mm3 (0.0-2.0); BASO % 0.1 % (0.0-3.0); EOS # 0.1 (0.0-0.7); EOS % 1.1 % (1.5-5.0); GRAN % 75.4 % (50.0-68.0); HEMATOCRIT 24.3 % (36.0-48.0); LYMPH # 1.3 (1.2-3.4); LYMPH % 11.5 % (22.0-35.0); MEAN CORPUSCULAR HEMOGLOBIN 28.9 pg (25.0-35.0); MEAN CORPUSCULAR HGB CONC 32.1 g/dl (31.0-37.0); MEAN PLATELET VOLUME 9.2 fl (7.0-11.0); MONO # 1.3 (0.1-0.6); MONO % 11.9 % (1.0-6.0); PLATELET COUNT 413 10^3/uL (120.0-450.0); RED CELL DISTRIBUTION WIDTH 20.3 % (11.5-14.5); WHITE BLOOD COUNT 11.1 10^3/ul (4.5-11.0)
[2016-07-31 07:58] LABS: ALB/GLOB RATIO 0.7 (1.1-1.8); ALKALINE PHOSPHATASE 217 U/L (38-133); ALT/SGPT 29 U/L (7-56); AST/SGOT 33 U/L (15-39); BILIRUBIN,TOTAL 0.9 mg/dL (0.2-1.3); BLOOD UREA NITROGEN 10 mg/dL (7-21); CALCIUM 7.9 mg/dL (8.4-10.5); CARBON DIOXIDE 20 mmol/L (21-33); CHLORIDE 99 mmol/L (98-107); GFR AFRICAN-AMERICAN > 60; GLUCOSE,RANDOM 51 mg/dL (70-110); POTASSIUM 4.4 mmol/L (3.6-5.0); SODIUM 127 mmol/L (132-148); TOTAL PROTEIN 5.9 g/dL (5.8-8.3)
[2016-07-31] MEDS: Pantoprazole 20 mg EC Tab PO SCH (08:45)
--- NOTE | 2016-07-31 09:09 | RAD ---
HISTORY: abdominal pain/hx of abscess COMPARISON: 05/27/2016 FINDINGS: LUNGS: Interval left inferolateral minimal pleural thickening/ atelectasis. Although only minimal infiltrate here is not excluded this is believe less likely. PLEURA: As above. No pneumothorax CARDIOVASCULAR: Cardiomegaly OSSEOUS STRUCTURES: Thoracic spondylosis. Bilateral shoulder severe osteoarthrosis -superimposed avascular necrosis suspect VISUALIZED UPPER ABDOMEN: Normal. OTHER FINDINGS: None. IMPRESSION: Interval left inferolateral minimal pleural parenchymal opacity -pleural reaction/ minimal atelectasis/ minimal left pleural fluid are favored. Minimal infiltrate here less likely but not excluded
[2016-07-31 09:33] LABS: IRON 19 ug/dL (45-180)
[2016-07-31] MEDS: cefTRIAXone 1 gm 1 GM/100 ML BAG IVPB SCH (10:33)
[2016-07-31] MEDS ORDERED: Iodixanol 320 mg/ml 150 ml Bottle IV ONE (11:10)
[2016-07-31] MEDS ORDERED: Lidocaine 2% Inj (20ml) ONE (11:10)
[2016-07-31] MEDS ORDERED: Midazolam 2 MG/2 ML VIAL ONE (11:32)
[2016-07-31] MEDS ORDERED: Iodixanol 320 MG/ML 100 ML BOTTLE IV ONE (12:00)
[2016-07-31 13:39] LABS: FOLATE 5.1 ng/mL
--- NOTE | 2016-07-31 14:53 | VASCULAR ---
PROCEDURE: Sinus tract injection and abscess drain placement HISTORY: Left iliopsoas abscess. Previous drainage. Recurrent abscess with sinus tract. PHYSICIAN(S): Esa Zaldivar MD. TECHNIQUE: The relative risks and indications for the procedure were explained to the patient's family consent obtained. The patient is placed on the angiography table and the sinus tract prepped and draped in the usual sterile fashion. A 5 [place]alan dilator was placed at the sinuses tract and gently used to probe the tract. Contrast was injected in the tract opacified. A 5 [place] catheter and glidewire were used to negotiate the sinus tract to the level of the iliopsoas fistula. Additional injection at this location demonstrated opacification left colon, consistent with a left colonic fistula. 0.035 guidewire was coiled in the cavity in the region of the psoas muscle. Dilatation was performed with subsequent placement of 14 [place]alan pigtail drain. The catheter was flushed and secured. The patient tolerated the procedure well. 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 Successful placement of a 14 [place]alan pigtail drain in the left iliopsoas abscess cavity. 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 14 Guatemalan drain placement in the left iliopsoas abscess. The drain should remain for a prolonged period of time and flushed on a daily basis. Follow-up CT scans and tube injectons are recommended.
[2016-07-31] MEDS: Morphine 2 mg/ml ISec IVP PRN ×2 (16:12→21:56)
--- NOTE | 2016-07-31 16:58 | CP.PCM.CON ---
History of Present Illness - History of Present Illness History of Present Illness: Infectious Disease Consult: July 31, 2016 85 yo female sent to [facility] [place] from Dr. Keita's office after discovery of purulent drainage from left lower abdominal drain site. She has a history of hypertension, GI bleed, CAD with stents, anemia, and osteoporosis. Many of her hospitalizations last year were for GI bleed. 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 She is currently on ceftriaxone and Flagyl. This will cover most recurrences of E. coli. Taken to IR by Dr. Zaldivar today. 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 PMHx: hypertension, GI bleed, CAD with stents, anemia, CAD, hyperlipidemia, and osteoporosis PSHx: none given Allergies: NKDA Social Hx: no tobacco, EtOH, or illicit drug use Active Medications Alendronate Sodium (Fosamax) 70 mg PO Q7D [facility] Last Admin: 07/31/16 10:32 Dose: 70 mg Aspirin (Ecotrin) 81 mg PO DAILY [facility] Last Admin: 07/31/16 10:33 Dose: 81 mg Atorvastatin Calcium (Lipitor) 40 mg PO DIN [facility] Docusate Sodium (Colace) 100 mg PO TID [facility] Last Admin: 07/31/16 15:12 Dose: Not Given Donepezil HCl (Aricept) 10 mg PO HS [facility] Ferrous Sulfate (Feosol) 324 mg PO TID [facility] Last Admin: 07/31/16 15:20 Dose: 324 mg Metronidazole (Flagyl) 500 mg in 100 mls @ 100 mls/hr IVPB Q8 [facility] PRN Reason: Protocol Last Admin: 07/31/16 15:20 Dose: 100 mls/hr Ceftriaxone Sodium (Rocephin 1 Gram Ivpb) 1 gm in 100 mls @ 100 mls/hr IVPB DAILY [facility] PRN Reason: Protocol Last Admin: 07/31/16 10:33 Dose: 100 mls/hr Sodium Chloride (Sodium Chloride 0.9%) 1,000 mls @ 75 mls/hr IV .[id number] [facility] Metoprolol Tartrate (Lopressor) 50 mg PO BID [facility] Last Admin: 07/31/16 10:32 Dose: 50 mg Morphine Sulfate (Morphine) 1 mg IVP Q4H PRN PRN Reason: Pain, moderate (4-7) Last Admin: 07/31/16 16:12 Dose: 1 mg Pantoprazole Sodium (Protonix Ec Tab) 20 mg PO ACB [facility] Last Admin: 07/31/16 08:45 Dose: 20 mg Valsartan (Diovan) 320 mg PO DAILY [facility] Last Admin: 07/31/16 10:32 Dose: 320 mg Family Hx: none given ROS: No fevers, chills, nausea, vomiting, diarrhea, headaches, dizziness, chest pain , abdominal pain, melena, hematuria, hematemesis, hematochezia, depression, anxiety. Patient with SOB Past Patient History - Infectious Disease Hx of Infectious Diseases: None - Tetanus Immunizations Tetanus Immunization: Unknown - Past Medical History & Family History Past Medical History?: Yes - Past Social History Smoking Status: Never Smoked - CARDIAC Hx Cardiac Disorders: Yes (angioplasty) Hx Congestive Heart Failure: Yes Hx Heart Murmur: Yes Hx Hypertension: Yes Hx Peripheral Edema: Yes - PULMONARY Hx Respiratory Disorders: No - NEUROLOGICAL Hx Neurological Disorder: No - HEENT Hx HEENT Problems: Yes Hx Cataracts: Yes (left eye no sx) - RENAL Hx Chronic Kidney Disease: Yes Hx Kidney Stones: Yes - ENDOCRINE/METABOLIC Hx Endocrine Disorders: No - HEMATOLOGICAL/ONCOLOGICAL Hx Blood Disorders: Yes Hx Anemia: Yes (blood transfusions) - INTEGUMENTARY Hx Dermatological Problems: Yes (BILATERAL LEG EDEMA MAINLY TO FEET MORE TO LEFT.) Other/Comment: ble skin tight/edema - MUSCULOSKELETAL/RHEUMATOLOGICAL Hx Musculoskeletal Disorders: No Hx Falls: No - GASTROINTESTINAL Hx Gastrointestinal Disorders: Yes (DIVERTICULOSIS,HEMORRHOID,GI BLEED,RECTAL BLEED) Hx Gall Bladder Disease: Yes (gallstones) Hx Gastroesophageal Reflux: Yes Other/Comment: rectal bleed - GENITOURINARY/GYNECOLOGICAL Hx Genitourinary Disorders: Yes Hx Urinary Tract Infection: Yes - PSYCHIATRIC Hx Psychophysiologic Disorder: No Hx Substance Use: No - SURGICAL HISTORY Hx Cardiac Catheterization: Yes Hx Cholecystectomy: Yes Hx Coronary Stent: Yes Hx Hysterectomy: Yes - ANESTHESIA Hx Anesthesia Reactions: No Hx Malignant Hyperthermia: No Meds Allergies/Adverse Reactions: Allergies Allergy/AdvReac Type Severity Reaction Status Date / Time No Known Allergies Allergy Verified 07/30/16 15:58 - Medications Medications: Current Medications Alendronate Sodium (Fosamax) 70 mg PO Q7D [facility] Last Admin: 07/31/16 10:32 Dose: 70 mg Aspirin (Ecotrin) 81 mg PO DAILY [facility] Last Admin: 07/31/16 10:33 Dose: 81 mg Atorvastatin Calcium (Lipitor) 40 mg PO DIN [facility] Docusate Sodium (Colace) 100 mg PO TID [facility] Last Admin: 07/31/16 15:12 Dose: Not Given Donepezil HCl (Aricept) 10 mg PO HS [facility] Ferrous Sulfate (Feosol) 324 mg PO TID [facility] Last Admin: 07/31/16 15:20 Dose: 324 mg Metronidazole (Flagyl) 500 mg in 100 mls @ 100 mls/hr IVPB Q8 [facility] PRN Reason: Protocol Last Admin: 07/31/16 15:20 Dose: 100 mls/hr Ceftriaxone Sodium (Rocephin 1 Gram Ivpb) 1 gm in 100 mls @ 100 mls/hr IVPB DAILY [facility] PRN Reason: Protocol Last Admin: 07/31/16 10:33 Dose: 100 mls/hr Sodium Chloride (Sodium Chloride 0.9%) 1,000 mls @ 75 mls/hr IV .[id number] [facility] Metoprolol Tartrate (Lopressor) 50 mg PO BID [facility] Last Admin: 07/31/16 10:32 Dose: 50 mg Morphine Sulfate (Morphine) 1 mg IVP Q4H PRN PRN Reason: Pain, moderate (4-7) Last Admin: 07/31/16 16:12 Dose: 1 mg Pantoprazole Sodium (Protonix Ec Tab) 20 mg PO ACB [facility] Last Admin: 07/31/16 08:45 Dose: 20 mg Valsartan (Diovan) 320 mg PO DAILY [facility] Last Admin: 07/31/16 10:32 Dose: 320 mg Physical Exam - Constitutional Appears: Non-toxic, No Acute Distress, Chronically Ill - Head Exam Head Exam: ATRAUMATIC, NORMOCEPHALIC - Eye Exam Eye Exam: EOMI, PERRL Pupil Exam: NORMAL ACCOMODATION, PERRL - ENT Exam ENT Exam: Mucous Membranes Moist, Normal External Ear Exam, TM's Normal Bilaterally - Neck Exam Neck exam: Positive for: Full Rom, Normal Inspection - Respiratory Exam Respiratory Exam: Clear to Auscultation Bilateral, NORMAL BREATHING PATTERN. absent: Rales, Rhonchi, Wheezes - Cardiovascular Exam Cardiovascular Exam: Tachycardia, +S1, +S2 - GI/Abdominal Exam GI & Abdominal Exam: Normal Bowel Sounds, Soft. absent: Distended, Tenderness Additional comments: drain in place. - Extremities Exam Extremities exam: Positive for: full ROM, normal inspection - Neurological Exam Neurological exam: Alert, CN II-XII Intact, Oriented x3 - Psychiatric Exam Psychiatric exam: Normal Affect, Normal Mood - Skin Skin Exam: Intact, Normal Color Results - Vital Signs Recent Vital Signs: Last Vital Signs Temp 98.3 F 07/31/16 14:35 Pulse 68 07/31/16 14:35 Resp 18 07/31/16 14:35 BP 150/81 07/31/16 14:35 Pulse Ox 100 07/31/16 14:35 - Labs Result Diagrams: 07/31/16 07:00 07/31/16 07:00 Labs: Laboratory Results - last 24 hr 07/31/16 07/31/16 07/31/16 07:00 07:00 08:38 WBC 11.1 H RBC 2.70 L Hgb 7.8 L Hct 24.3 L MCV 90.0 MCH 28.9 MCHC 32.1 RDW 20.3 H Plt Count 413 MPV 9.2 Gran % 75.4 H Lymph % (Auto) 11.5 L Daggett % (Auto) 11.9 H Eos % (Auto) 1.1 L Baso % (Auto) 0.1 Gran # 8.40 H Lymph # 1.3 Daggett # 1.3 H Eos # 0.1 Baso # 0.01 Sodium 127 L Potassium 4.4 Chloride 99 Carbon Dioxide 20 L Anion Gap 12 BUN 10 Creatinine 0.4 L Est GFR ( Amer) > 60 Est GFR (Non-Af Amer) > 60 Random Glucose 51 L Calcium 7.9 L Iron TIBC % Saturation Ferritin 681.0 Total Bilirubin 0.9 AST 33 ALT 29 Alkaline Phosphatase 217 H Total Protein 5.9 Albumin 2.5 L Globulin 3.4 Albumin/Globulin Ratio 0.7 L Vitamin B12 896 Folate 5.1 07/31/16 08:38 WBC RBC Hgb Hct MCV MCH MCHC RDW Plt Count MPV Gran % Lymph % (Auto) Daggett % (Auto) Eos % (Auto) Baso % (Auto) Gran # Lymph # Daggett # Eos # Baso # Sodium Potassium Chloride Carbon Dioxide Anion Gap BUN Creatinine Est GFR ( Amer) Est GFR (Non-Af Amer) Random Glucose Calcium Iron 19 L TIBC 152 L % Saturation 12 L Ferritin Total Bilirubin AST ALT Alkaline Phosphatase Total Protein Albumin Globulin Albumin/Globulin Ratio Vitamin B12 Folate Assessment & Plan - Assessment and Plan (Free Text) Assessment: 86 yo female with intra-abdominal abscess presenting with drainage of pus. Taken by IR for drain placement. Spoke with Dr. Zaldivar in detail regarding case. He fears formation of fistula at this time. On Rocephin and Metronidazole. Last hospitalization showed VRE and E. coli growth. Supportive care with low tolerance for switching antibiotics to one such as meropenem. New cultures taken. Supportive care Thank you for allowing me to participate in the care of the patient, we will follow with you.
--- NOTE | 2016-08-01 19:21 | CP.PCM.PCO ---
Physician Communication Note - Physician Communication Note Physician Communication Note: written note in chart for today due to technical difficulties with EMR
--- NOTE | 2016-08-01 20:11 | CT ---
PROCEDURE: CT guided left hip aspiration HISTORY: Left hip effusion. Evaluate for infection. PHYSICIAN(S): Esa Zaldivar MD. TECHNIQUE: The relative risks and indications of the procedure were explained to the patient's family and consent obtained. The patient was placed supine on the CT scanner and preliminary images through the left hip obtained. Conscious sedation and monitoring were provided throughout the procedure by a nurse. There is an effusion with bony erosion of the left hip. A left anterior approach was selected and the area prepped and draped in the usual sterile fashion. 1% Xylocaine was used to anesthetize the skin and soft tissues. A 19 gauge single wall needle was advanced into the left hip joint. No fluid was obtained. The needle was redirected. Still no fluid was obtained. Subsequently 3 cc of saline was injected and aspirated. The specimen sent to microbiology the patient tolerated the procedure well. IMPRESSION: 1. CT-guided left hip aspiration as described above
--- NOTE | 2016-08-01 20:52 | CP.PCM.PN ---
<Jess Wilkerson - Last Filed: 08/02/16 12:25> Subjective - Date & Time of Evaluation Date of Evaluation: 08/02/16 Time of Evaluation: 07:10 - Subjective Subjective: Medicine progress note for Dr Diaz and Dr Zuniga. Patient was seen,examined, at bed side. S/P IR drain of the intra abdominal abscess. Patient denies abdominal pain. Patient tolerated the clear liquid diet. Patient denies n/v/d. Patient denies fever or chills. Left sided IR drain draining brownish serous and feculent fluid. Objective - Vital Signs/Intake and Output Vital Signs (last 24 hours): Temp Pulse Resp BP Pulse Ox 97.9 F 75 20 153/90 H 100 07/31/16 16:00 07/31/16 18:07 07/31/16 16:00 07/31/16 18:07 07/31/16 16:00 - Medications Medications: Current Medications Alendronate Sodium (Fosamax) 70 mg PO Q7D [facility] Last Admin: 07/31/16 10:32 Dose: 70 mg Aspirin (Ecotrin) 81 mg PO DAILY [facility] Last Admin: 07/31/16 10:33 Dose: 81 mg Atorvastatin Calcium (Lipitor) 40 mg PO DIN [facility] Last Admin: 07/31/16 18:07 Dose: 40 mg Docusate Sodium (Colace) 100 mg PO TID [facility] Last Admin: 07/31/16 17:38 Dose: Not Given Donepezil HCl (Aricept) 10 mg PO HS [facility] Last Admin: 07/31/16 21:57 Dose: 10 mg Ferrous Sulfate (Feosol) 324 mg PO TID [facility] Last Admin: 07/31/16 18:07 Dose: 324 mg Metronidazole (Flagyl) 500 mg in 100 mls @ 100 mls/hr IVPB Q8 [facility] PRN Reason: Protocol Last Admin: 07/31/16 21:57 Dose: 100 mls/hr Ceftriaxone Sodium (Rocephin 1 Gram Ivpb) 1 gm in 100 mls @ 100 mls/hr IVPB DAILY [facility] PRN Reason: Protocol Last Admin: 07/31/16 10:33 Dose: 100 mls/hr Sodium Chloride (Sodium Chloride 0.9%) 1,000 mls @ 75 mls/hr IV .[id number] [facility] Metoprolol Tartrate (Lopressor) 50 mg PO BID [facility] Last Admin: 07/31/16 18:07 Dose: 50 mg Morphine Sulfate (Morphine) 1 mg IVP Q4H PRN PRN Reason: Pain, moderate (4-7) Last Admin: 07/31/16 21:56 Dose: 1 mg Pantoprazole Sodium (Protonix Ec Tab) 20 mg PO ACB [facility] Last Admin: 07/31/16 08:45 Dose: 20 mg Valsartan (Diovan) 320 mg PO DAILY [facility] Last Admin: 07/31/16 10:32 Dose: 320 mg - Labs Labs: 07/31/16 07:00 07/31/16 07:00 PT 12.9 Seconds (9.9-11.8) H 07/30/16 16:30 INR 1.19 (0.93-1.08) H 07/30/16 16:30 APTT 28.7 Seconds (23.7-30.8) 07/30/16 16:30 - Constitutional Appears: No Acute Distress, Cachectic, Chronically Ill - Head Exam Head Exam: ATRAUMATIC, NORMAL INSPECTION, NORMOCEPHALIC - Eye Exam Eye Exam: Normal appearance, PERRL, Scleral icterus (pale sclera.) - ENT Exam ENT Exam: Mucous Membranes Moist - Neck Exam Neck Exam: Normal Inspection - Respiratory Exam Respiratory Exam: Clear to Ausculation Bilateral, NORMAL BREATHING PATTERN. absent: Rales, Rhonchi, Wheezes, Respiratory Distress, Stridor - Cardiovascular Exam Cardiovascular Exam: REGULAR RHYTHM, +S1, +S2, Murmur - GI/Abdominal Exam GI & Abdominal Exam: Soft, Normal Bowel Sounds. absent: Distended, Firm, Guarding, Tenderness Additional comments: IR drain in place, draining feculent fluid. - Extremities Exam Extremities Exam: absent: Pedal Edema - Back Exam Back Exam: NORMAL INSPECTION - Neurological Exam Neurological Exam: Alert, Awake, Oriented x3 - Psychiatric Exam Psychiatric exam: Normal Affect, Normal Mood - Skin Skin Exam: Dry, Normal Color, Warm Assessment and Plan - Assessment and Plan (Free Text) Assessment: Patient is an 86 y/o with PMH of htn, CAD s/p stents, CHF, osteoporosis, microcytic anemia, diverticulosis, and diverticular abscess s/p surgery in the past admitted with intra abdominal abscess. Patient is s/p IR drain. 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 - ID, surgery and gi consulted - on flagyl and Rocephin - Plan for possible surgery next week - Cardio consulted for clearance. - NS@100 - CLD as tolerated 2) Microcytic anemia - hgb 7.1 - will type and cross, and transfuse 2 units of prbc. - will continue po iron. 2) h/o CAD - continue asa, lipitor, and lopressor. - continue diovan for htn - will consult cardio for clearance. 4) h/o osteoporosis - continue alendronate qweekly 5) Dementia- continue aricept 6) DVT prophyalxis: lovenox and protonix. Patient, seen, examined, and case discussed with Dr Diaz. <Praful Diaz - Last Filed: 09/11/16 08:38> Objective - Vital Signs/Intake and Output Vital Signs (last 24 hours): Temp Pulse Resp BP Pulse Ox 95 F L 42 L 36 H 95/57 L 96 08/17/16 12:00 08/17/16 20:00 08/17/16 20:00 08/17/16 19:00 08/17/16 20:30 - Labs Labs: 08/17/16 05:00 08/17/16 05:00 PT 12.3 Seconds (9.9-11.8) H 08/15/16 14:50 INR 1.14 (0.93-1.08) H 08/15/16 14:50 APTT 34.8 Seconds (23.7-30.8) H 08/15/16 14:50 Attending/Attestation - Attestation I have personally seen and examined this patient.: Yes I have fully participated in the care of the patient.: Yes I have reviewed all pertinent clinical information, including history, physical exam and plan: Yes Notes (Text): 09/11/16 08:38 Medical record note made by resident after discussion with my direction and input after patient personally seen and examined by me. I have reviewed the chart and agree that the record accurately reflects my personal history, physical, data review and plan.
[2016-08-01] MEDS: metroNIDAZOLE IV 500 mg/100 ml 500 MG/100 ML BAG IVPB SCH (21:40)
--- NOTE | 2016-08-01 21:44 | CP.PCM.PN ---
Subjective - Date & Time of Evaluation Date of Evaluation: 08/01/16 Time of Evaluation: 21:44 - Subjective Subjective: \ # 22 agniocath inserted in left forearm. Dx:Poor venous access. Objective - Vital Signs/Intake and Output Vital Signs (last 24 hours): Temp Pulse Resp BP Pulse Ox 97.9 F 75 20 153/90 H 100 07/31/16 16:00 07/31/16 18:07 07/31/16 16:00 07/31/16 18:07 07/31/16 16:00 - Medications Medications: Current Medications Alendronate Sodium (Fosamax) 70 mg PO Q7D [facility] Last Admin: 07/31/16 10:32 Dose: 70 mg Aspirin (Ecotrin) 81 mg PO DAILY [facility] Last Admin: 07/31/16 10:33 Dose: 81 mg Atorvastatin Calcium (Lipitor) 40 mg PO DIN [facility] Last Admin: 07/31/16 18:07 Dose: 40 mg Docusate Sodium (Colace) 100 mg PO TID [facility] Last Admin: 07/31/16 17:38 Dose: Not Given Donepezil HCl (Aricept) 10 mg PO HS [facility] Last Admin: 07/31/16 21:57 Dose: 10 mg Ferrous Sulfate (Feosol) 324 mg PO TID [facility] Last Admin: 07/31/16 18:07 Dose: 324 mg Metronidazole (Flagyl) 500 mg in 100 mls @ 100 mls/hr IVPB Q8 [facility] PRN Reason: Protocol Last Admin: 07/31/16 21:57 Dose: 100 mls/hr Ceftriaxone Sodium (Rocephin 1 Gram Ivpb) 1 gm in 100 mls @ 100 mls/hr IVPB DAILY [facility] PRN Reason: Protocol Last Admin: 07/31/16 10:33 Dose: 100 mls/hr Sodium Chloride (Sodium Chloride 0.9%) 1,000 mls @ 75 mls/hr IV .[id number] [facility] Metoprolol Tartrate (Lopressor) 50 mg PO BID [facility] Last Admin: 07/31/16 18:07 Dose: 50 mg Morphine Sulfate (Morphine) 1 mg IVP Q4H PRN PRN Reason: Pain, moderate (4-7) Last Admin: 07/31/16 21:56 Dose: 1 mg Pantoprazole Sodium (Protonix Ec Tab) 20 mg PO ACB [facility] Last Admin: 07/31/16 08:45 Dose: 20 mg Valsartan (Diovan) 320 mg PO DAILY [facility] Last Admin: 07/31/16 10:32 Dose: 320 mg - Labs Labs: 07/31/16 07:00 07/31/16 07:00 PT 12.9 Seconds (9.9-11.8) H 07/30/16 16:30 INR 1.19 (0.93-1.08) H 07/30/16 16:30 APTT 28.7 Seconds (23.7-30.8) 07/30/16 16:30
--- NOTE | 2016-08-02 04:36 | CP.PCM.PN ---
Subjective - Date & Time of Evaluation Date of Evaluation: 08/02/16 Time of Evaluation: 04:35 - Subjective Subjective: Patient was receiving blood transfusion. After i Unit PRBC was transfused, the IV site infiltrated. It was requested to place another line. # 20 angiocath was inserted in right distal volar forearm. Dx:Poor venous access. Objective - Vital Signs/Intake and Output Vital Signs (last 24 hours): Temp Pulse Resp BP Pulse Ox 99.2 F 65 20 151/70 H 96 08/02/16 04:20 08/02/16 04:20 08/02/16 04:20 08/02/16 04:20 08/01/16 16:00 Intake and Output: 08/01/16 08/02/16 18:59 06:59 Intake Total 170 Balance 170 - Medications Medications: Current Medications Alendronate Sodium (Fosamax) 70 mg PO Q7D [facility] Last Admin: 07/31/16 10:32 Dose: 70 mg Aspirin (Ecotrin) 81 mg PO DAILY [facility] Last Admin: 07/31/16 10:33 Dose: 81 mg Atorvastatin Calcium (Lipitor) 40 mg PO DIN [facility] Last Admin: 07/31/16 18:07 Dose: 40 mg Docusate Sodium (Colace) 100 mg PO TID [facility] Last Admin: 07/31/16 17:38 Dose: Not Given Donepezil HCl (Aricept) 10 mg PO HS [facility] Last Admin: 08/01/16 21:39 Dose: 10 mg Ferrous Sulfate (Feosol) 324 mg PO TID [facility] Last Admin: 07/31/16 18:07 Dose: 324 mg Metronidazole (Flagyl) 500 mg in 100 mls @ 100 mls/hr IVPB Q8 [facility] PRN Reason: Protocol Last Admin: 08/01/16 21:40 Dose: 100 mls/hr Ceftriaxone Sodium (Rocephin 1 Gram Ivpb) 1 gm in 100 mls @ 100 mls/hr IVPB DAILY [facility] PRN Reason: Protocol Last Admin: 07/31/16 10:33 Dose: 100 mls/hr Sodium Chloride (Sodium Chloride 0.9%) 1,000 mls @ 75 mls/hr IV .[id number] [facility] Metoprolol Tartrate (Lopressor) 50 mg PO BID [facility] Last Admin: 07/31/16 18:07 Dose: 50 mg Morphine Sulfate (Morphine) 1 mg IVP Q4H PRN PRN Reason: Pain, moderate (4-7) Last Admin: 07/31/16 21:56 Dose: 1 mg Pantoprazole Sodium (Protonix Ec Tab) 20 mg PO ACB [facility] Last Admin: 07/31/16 08:45 Dose: 20 mg Valsartan (Diovan) 320 mg PO DAILY [facility] Last Admin: 07/31/16 10:32 Dose: 320 mg - Labs Labs: 07/31/16 07:00 07/31/16 07:00 PT 12.9 Seconds (9.9-11.8) H 07/30/16 16:30 INR 1.19 (0.93-1.08) H 07/30/16 16:30 APTT 28.7 Seconds (23.7-30.8) 07/30/16 16:30
--- NOTE | 2016-08-02 06:48 | CP.PCM.PN ---
<Jess Wilkerson - Last Filed: 08/02/16 19:14> Subjective - Date & Time of Evaluation Date of Evaluation: 08/02/16 Time of Evaluation: 08:25 - Subjective Subjective: Medicine progress note for Dr Diaz and Dr Zuniga Patient with no acute events overnight. Patient states she is not feeling well today, and would rather than do the PT. Patient states she is feeling weak. Patient denies n/v/d. Patient denies chest pain, sob, dizziness or palpitation. Patient also c/o lower extremities pain, especially on the left calf extending tot he knee. Objective - Vital Signs/Intake and Output Vital Signs (last 24 hours): Temp Pulse Resp BP Pulse Ox 99.2 F 59 L 18 140/66 96 08/02/16 05:09 08/02/16 05:09 08/02/16 05:09 08/02/16 05:09 08/01/16 16:00 Intake and Output: 08/01/16 08/02/16 18:59 06:59 Intake Total 170 Balance 170 - Medications Medications: Current Medications Alendronate Sodium (Fosamax) 70 mg PO Q7D [facility] Last Admin: 07/31/16 10:32 Dose: 70 mg Aspirin (Ecotrin) 81 mg PO DAILY [facility] Last Admin: 07/31/16 10:33 Dose: 81 mg Atorvastatin Calcium (Lipitor) 40 mg PO DIN [facility] Last Admin: 07/31/16 18:07 Dose: 40 mg Docusate Sodium (Colace) 100 mg PO TID [facility] Last Admin: 07/31/16 17:38 Dose: Not Given Donepezil HCl (Aricept) 10 mg PO HS [facility] Last Admin: 08/01/16 21:39 Dose: 10 mg Ferrous Sulfate (Feosol) 324 mg PO TID [facility] Last Admin: 07/31/16 18:07 Dose: 324 mg Metronidazole (Flagyl) 500 mg in 100 mls @ 100 mls/hr IVPB Q8 [facility] PRN Reason: Protocol Last Admin: 08/01/16 21:40 Dose: 100 mls/hr Ceftriaxone Sodium (Rocephin 1 Gram Ivpb) 1 gm in 100 mls @ 100 mls/hr IVPB DAILY [facility] PRN Reason: Protocol Last Admin: 07/31/16 10:33 Dose: 100 mls/hr Sodium Chloride (Sodium Chloride 0.9%) 1,000 mls @ 75 mls/hr IV .[id number] [facility] Metoprolol Tartrate (Lopressor) 50 mg PO BID [facility] Last Admin: 07/31/16 18:07 Dose: 50 mg Morphine Sulfate (Morphine) 1 mg IVP Q4H PRN PRN Reason: Pain, moderate (4-7) Last Admin: 07/31/16 21:56 Dose: 1 mg Pantoprazole Sodium (Protonix Ec Tab) 20 mg PO ACB [facility] Last Admin: 07/31/16 08:45 Dose: 20 mg Valsartan (Diovan) 320 mg PO DAILY [facility] Last Admin: 07/31/16 10:32 Dose: 320 mg - Labs Labs: 07/31/16 07:00 07/31/16 07:00 PT 12.9 Seconds (9.9-11.8) H 07/30/16 16:30 INR 1.19 (0.93-1.08) H 07/30/16 16:30 APTT 28.7 Seconds (23.7-30.8) 07/30/16 16:30 - Constitutional Appears: No Acute Distress, Cachectic, Chronically Ill - Head Exam Head Exam: ATRAUMATIC, NORMAL INSPECTION, NORMOCEPHALIC - Eye Exam Eye Exam: EOMI, Normal appearance, PERRL. absent: Scleral icterus (pale sclera. ) - ENT Exam ENT Exam: Mucous Membranes Moist - Neck Exam Neck Exam: Normal Inspection - Respiratory Exam Respiratory Exam: Clear to Ausculation Bilateral, NORMAL BREATHING PATTERN. absent: Rales, Rhonchi, Wheezes, Respiratory Distress, Stridor - Cardiovascular Exam Cardiovascular Exam: REGULAR RHYTHM, RRR, +S1, +S2. absent: Murmur - GI/Abdominal Exam GI & Abdominal Exam: Soft, Normal Bowel Sounds. absent: Distended, Firm, Tenderness Additional comments: left sided IR drain in place, draining brown, feculent - Extremities Exam Extremities Exam: Calf Tenderness, Pedal Edema - Back Exam Back Exam: NORMAL INSPECTION - Neurological Exam Neurological Exam: Alert, Awake, Oriented x3 - Psychiatric Exam Psychiatric exam: Normal Affect, Normal Mood - Skin Skin Exam: Dry, Intact, Normal Color, Warm Assessment and Plan - Assessment and Plan (Free Text) Assessment: Patient is an 86 y/o with PMH of htn, CAD s/p stents, CHF, osteoporosis, microcytic anemia, diverticulosis, and diverticular abscess s/p surgery in the past admitted with intra abdominal abscess. Patient is s/p IR drain day 2. 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 - leukocytosis trending down, afebrile. - ID following - on flagyl and Rocephin - Plan for possible surgery next week - Cardio consulted for clearance. - continue NS@100 - will advance diet to full as tolerated. nutritional supplement. 2) Microcytic anemia - hgb 10.6, s/p 2 units of prbc last night - will continue to monitor. - will continue po iron. 3) h/o CAD - continue asa, lipitor, and lopressor. - continue diovan for htn - pending cardio clearance. 4) Transaminitis- likely from the abdominal muscle breakdown, will trend lrts for now 5) Hypokalemia - will replete 6) hypocalcemia- will replete, will obtain vitamin D level 7) h/o osteoporosis - continue alendronate qweekly 8) Dementia- continue aricept 9) DVT prophyalxis: lovenox and protonix. Patient, seen, examined, and case discussed with Dr Zuniga. <Aubrey Zuniga - Last Filed: 08/18/16 19:02> Objective - Vital Signs/Intake and Output Vital Signs (last 24 hours): Temp Pulse Resp BP Pulse Ox 95 F L 42 L 36 H 95/57 L 96 08/17/16 12:00 08/17/16 20:00 08/17/16 20:00 08/17/16 19:00 08/17/16 20:30 - Labs Labs: 08/17/16 05:00 08/17/16 05:00 PT 12.3 Seconds (9.9-11.8) H 08/15/16 14:50 INR 1.14 (0.93-1.08) H 08/15/16 14:50 APTT 34.8 Seconds (23.7-30.8) H 08/15/16 14:50 Attending/Attestation - Attestation I have personally seen and examined this patient.: Yes I have fully participated in the care of the patient.: Yes I have reviewed all pertinent clinical information, including history, physical exam and plan: Yes Notes (Text): 08/18/16 19:02 Medical record note made by the resident after discussion with my direction and input after the patient was personally seen and examined by me. I have reviewed the chart and agree that the record accurately reflects by personal performance of the history, physical exam, data review, and medical decision-making, in the course for the patient. I have also personally directed the plan of care.
[2016-08-02] MEDS: metroNIDAZOLE IV 500 mg/100 ml 500 MG/100 ML BAG IVPB SCH ×3 (07:10→22:28)
--- NOTE | 2016-08-02 07:37 | CP.PCM.PN ---
Subjective - Date & Time of Evaluation Date of Evaluation: 08/02/16 Time of Evaluation: 07:34 - Subjective Subjective: Gen Sx: Dr Keita Pt S&E. Resting comfortably. Denies pain, N/V, F/C. Tolerating CLD. IR drain placed on 07/31 draining feculent/purulent fluid. Pt being transfused for anemia. Objective - Vital Signs/Intake and Output Vital Signs (last 24 hours): Temp Pulse Resp BP Pulse Ox 99 F 59 L 20 138/65 96 08/02/16 07:07 08/02/16 07:07 08/02/16 07:07 08/02/16 07:09 08/01/16 16:00 Intake and Output: 08/02/16 08/02/16 06:59 18:59 Intake Total 170 75 Balance 170 75 - Medications Medications: Current Medications Alendronate Sodium (Fosamax) 70 mg PO Q7D [facility] Last Admin: 07/31/16 10:32 Dose: 70 mg Aspirin (Ecotrin) 81 mg PO DAILY [facility] Last Admin: 07/31/16 10:33 Dose: 81 mg Atorvastatin Calcium (Lipitor) 40 mg PO DIN [facility] Last Admin: 07/31/16 18:07 Dose: 40 mg Docusate Sodium (Colace) 100 mg PO TID [facility] Last Admin: 07/31/16 17:38 Dose: Not Given Donepezil HCl (Aricept) 10 mg PO HS [facility] Last Admin: 08/01/16 21:39 Dose: 10 mg Ferrous Sulfate (Feosol) 324 mg PO TID [facility] Last Admin: 07/31/16 18:07 Dose: 324 mg Metronidazole (Flagyl) 500 mg in 100 mls @ 100 mls/hr IVPB Q8 [facility] PRN Reason: Protocol Last Admin: 08/02/16 07:10 Dose: 100 mls/hr Ceftriaxone Sodium (Rocephin 1 Gram Ivpb) 1 gm in 100 mls @ 100 mls/hr IVPB DAILY [facility] PRN Reason: Protocol Last Admin: 07/31/16 10:33 Dose: 100 mls/hr Sodium Chloride (Sodium Chloride 0.9%) 1,000 mls @ 75 mls/hr IV .[id number] [facility] Metoprolol Tartrate (Lopressor) 50 mg PO BID [facility] Last Admin: 07/31/16 18:07 Dose: 50 mg Morphine Sulfate (Morphine) 1 mg IVP Q4H PRN PRN Reason: Pain, moderate (4-7) Last Admin: 07/31/16 21:56 Dose: 1 mg Pantoprazole Sodium (Protonix Ec Tab) 20 mg PO ACB [facility] Last Admin: 07/31/16 08:45 Dose: 20 mg Valsartan (Diovan) 320 mg PO DAILY [facility] Last Admin: 07/31/16 10:32 Dose: 320 mg - Labs Labs: 07/31/16 07:00 07/31/16 07:00 PT 12.9 Seconds (9.9-11.8) H 07/30/16 16:30 INR 1.19 (0.93-1.08) H 07/30/16 16:30 APTT 28.7 Seconds (23.7-30.8) 07/30/16 16:30 - Constitutional Appears: Non-toxic, No Acute Distress - Respiratory Exam Respiratory Exam: absent: Respiratory Distress - Cardiovascular Exam Cardiovascular Exam: REGULAR RHYTHM. absent: Tachycardia - GI/Abdominal Exam GI & Abdominal Exam: Soft, Tenderness (llq). 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
[2016-08-02 07:43] LABS: HEMATOCRIT 32.4 % (36.0-48.0); MEAN CELL VOLUME 89.3 fL (80.0-105.0); MEAN CORPUSCULAR HEMOGLOBIN 29.2 pg (25.0-35.0); MEAN CORPUSCULAR HGB CONC 32.7 g/dl (31.0-37.0); MEAN PLATELET VOLUME 9.4 fl (7.0-11.0); RED CELL DISTRIBUTION WIDTH 17.6 % (11.5-14.5); WHITE BLOOD COUNT 6.5 10^3/ul (4.5-11.0)
[2016-08-02 08:16] LABS: ALB/GLOB RATIO 0.7 (1.1-1.8); ALKALINE PHOSPHATASE 194 U/L (38-133); ALT/SGPT 35 U/L (7-56); AST/SGOT 40 U/L (15-39); BILIRUBIN,TOTAL 1.2 mg/dL (0.2-1.3); BLOOD UREA NITROGEN 6 mg/dL (7-21); CALCIUM 7.7 mg/dL (8.4-10.5); CARBON DIOXIDE 23 mmol/L (21-33); CHLORIDE 103 mmol/L (98-107); GFR AFRICAN-AMERICAN > 60; GLUCOSE,RANDOM 78 mg/dL (70-110); POTASSIUM 3.5 mmol/L (3.6-5.0); SODIUM 133 mmol/L (132-148); TOTAL PROTEIN 5.7 g/dL (5.8-8.3)
[2016-08-02] MEDS ORDERED: Potassium Chloride 20 mEq ER Tab PO ONE (09:10)
[2016-08-02] MEDS: cefTRIAXone 1 gm 1 GM/100 ML BAG IVPB SCH (09:59)
[2016-08-02] MEDS: Pantoprazole 20 mg EC Tab PO SCH (09:59)
[2016-08-02 10:13] LABS: ALB/GLOB RATIO 0.7 (1.1-1.8); ALKALINE PHOSPHATASE 182 U/L (38-133); ALT/SGPT 32 U/L (7-56); AST/SGOT 29 U/L (15-39); BILIRUBIN,TOTAL 0.5 mg/dL (0.2-1.3); BLOOD UREA NITROGEN 8 mg/dL (7-21); CALCIUM 7.5 mg/dL (8.4-10.5); CARBON DIOXIDE 23 mmol/L (21-33); CHLORIDE 103 mmol/L (95-110); GFR AFRICAN-AMERICAN > 60; GLUCOSE,RANDOM 75 mg/dL (70-110); MAGNESIUM 1.8 mg/dL (1.7-2.2); PHOSPHOROUS 2.7 mg/dL (2.5-4.5); POTASSIUM 4.1 mmol/L (3.6-5.0); SODIUM 131 mmol/L (132-148)
--- NOTE | 2016-08-02 10:51 | CON ---
DATE: 08/02/2016 HISTORY OF PRESENT ILLNESS: The patient is an 86-year-old woman who presents with recurrence of abdo beverly abscess secondary to diverticulitis. She underwent drainage yesterday. PAST MEDICAL HISTORY: Notable for PTCA and stent last year. A bare metal stent was used in the past . Her recent cardiac evaluation reveals good LV function, mild aortic stenosis/sclerosis as well as pul monary hypertension. Her past medical history also includes hypertension. She denies chest pain, denies shortness of veronika th. SOCIAL HISTORY: Negative smoker. REVIEW OF SYSTEMS: A 14-point review of systems was reviewed. No cardiac symptomatology is noted. PHYSICAL EXAMINATION: VITAL SIGNS: Blood pressure is 140/66, heart rate is in the 60s. NECK: Negative JVD. LUNGS: Without rales. HEART: Reveals a I/ systolic ejection murmur. EXTREMITIES: Without edema. EKG shows no acute changes. LABORATORIES: The hemoglobin is 10.6, white count 6.5, BUN and creatinine are unremarkable. IMPRESSION: 1. Recurrent abdominal abscess. 2. Normal left ventricular function. 3. Stable angina. 4. History of percutaneous transluminal coronary angioplasty and stent with bare metal stents. 5. Pulmonary hypertension. 6. Systemic hypertension. 7. Hypercholesterolemia. Given these findings, the patient's cardiac status is stable. There is no evidence for acute cardiac issues. The patient's age and her pulmonary hypertension make anesthesia a greater risk if abdomina l surgery is planned. Esa Wolfe MD cc: [facility] TT: 08/02/2016 10:51:02 Confirmation # [id number] Dictation # [id number] mn
[2016-08-02 12:12] LABS: HEMATOCRIT 22.7 % (36.0-48.0); MEAN CELL VOLUME 91.5 fL (80.0-105.0); MEAN CORPUSCULAR HEMOGLOBIN 28.6 pg (25.0-35.0); MEAN CORPUSCULAR HGB CONC 31.3 g/dl (31.0-37.0); MEAN PLATELET VOLUME 9.3 fl (7.0-11.0); RED CELL DISTRIBUTION WIDTH 20.2 % (11.5-14.5); WHITE BLOOD COUNT 8.5 10^3/ul (4.5-11.0)
[2016-08-02] MEDS: Enoxaparin 30 mg Syringe SC SCH (13:25)
[2016-08-02] MEDS: Morphine 2 mg/ml ISec IVP PRN (14:43)
--- NOTE | 2016-08-02 15:52 | CP.PCM.CON ---
History of Present Illness - History of Present Illness History of Present Illness: Seen and examined at bedside earlier today. Chart was reviewed. Request for consult is for intraabdominal abcess. HPI: This is a 86 y.o female w/ a history of CAD,s/p stent, CHF, Alzheimer, Diverticulosis, and diverticular abcess s/p drain placement and removal came to the ER with complaint of purulent drainage from Left lower abdominal drain site. The patient had FU with Dr. Keita and notice purulent drain and sent to ER for further evaluation. Had ct scan reporting internal removal LLQ pigtail catherter with residual abcess containg air. amaral diverticulosis, fecal impaction w/rectal wall thickening, bilateral effusion. Patient report having BM , and have pain around drainage site. It appears greenis/brown, no blood. Denies N/V, fever, chills. No Sob or chest pain. Tolerating clear liquids now. PMH: HTN,CAD, s/p stents, diverticulosis, divertucilar abcess, hemorrhoids PSH: 06/2015 push enteroscopy, small abrasion, colon 11/2015, no colon polyps, diverticulosis throughout, cholecystectomy,hysterectomy FHX: noncontributory at this time. ALLERGIES: NKDA MEDS: reviewed as per MAR/home meds ROS: systems reviewed with positive findings, see HPI Past Patient History - Infectious Disease Hx of Infectious Diseases: None - Tetanus Immunizations Tetanus Immunization: Unknown - Past Medical History & Family History Past Medical History?: Yes - Past Social History Smoking Status: Never Smoked - CARDIAC Hx Cardiac Disorders: Yes (angioplasty) Hx Congestive Heart Failure: Yes Hx Heart Murmur: Yes Hx Hypertension: Yes Hx Peripheral Edema: Yes - PULMONARY Hx Respiratory Disorders: No - NEUROLOGICAL Hx Neurological Disorder: No - HEENT Hx HEENT Problems: Yes Hx Cataracts: Yes (left eye no sx) - RENAL Hx Chronic Kidney Disease: Yes Hx Kidney Stones: Yes - ENDOCRINE/METABOLIC Hx Endocrine Disorders: No - HEMATOLOGICAL/ONCOLOGICAL Hx Blood Disorders: Yes Hx Anemia: Yes (blood transfusions) - INTEGUMENTARY Hx Dermatological Problems: Yes (BILATERAL LEG EDEMA MAINLY TO FEET MORE TO LEFT.) Other/Comment: ble skin tight/edema - MUSCULOSKELETAL/RHEUMATOLOGICAL Hx Musculoskeletal Disorders: No Hx Falls: No - GASTROINTESTINAL Hx Gastrointestinal Disorders: Yes (DIVERTICULOSIS,HEMORRHOID,GI BLEED,RECTAL BLEED) Hx Gall Bladder Disease: Yes (gallstones) Hx Gastroesophageal Reflux: Yes Other/Comment: rectal bleed - GENITOURINARY/GYNECOLOGICAL Hx Genitourinary Disorders: Yes Hx Urinary Tract Infection: Yes - PSYCHIATRIC Hx Psychophysiologic Disorder: No Hx Substance Use: No - SURGICAL HISTORY Hx Cardiac Catheterization: Yes Hx Cholecystectomy: Yes Hx Coronary Stent: Yes Hx Hysterectomy: Yes - ANESTHESIA Hx Anesthesia Reactions: No Hx Malignant Hyperthermia: No Meds Allergies/Adverse Reactions: Allergies Allergy/AdvReac Type Severity Reaction Status Date / Time No Known Allergies Allergy Verified 07/30/16 15:58 - Medications Medications: Current Medications Alendronate Sodium (Fosamax) 70 mg PO Q7D [facility] Last Admin: 07/31/16 10:32 Dose: 70 mg Aspirin (Ecotrin) 81 mg PO DAILY [facility] Last Admin: 07/31/16 10:33 Dose: 81 mg Atorvastatin Calcium (Lipitor) 40 mg PO DIN [facility] Last Admin: 07/31/16 18:07 Dose: 40 mg Calcium Carbonate (Oscal) 500 mg PO DAILY [facility] Last Admin: 08/02/16 09:56 Dose: 500 mg Docusate Sodium (Colace) 100 mg PO TID [facility] Last Admin: 08/02/16 09:56 Dose: 100 mg Donepezil HCl (Aricept) 10 mg PO HS [facility] Last Admin: 08/01/16 21:39 Dose: 10 mg Enoxaparin Sodium (Lovenox) 30 mg SC DAILY [facility] PRN Reason: Protocol Ferrous Sulfate (Feosol) 324 mg PO TID [facility] Last Admin: 08/02/16 09:56 Dose: 324 mg Metronidazole (Flagyl) 500 mg in 100 mls @ 100 mls/hr IVPB Q8 [facility] PRN Reason: Protocol Last Admin: 08/02/16 07:10 Dose: 100 mls/hr Ceftriaxone Sodium (Rocephin 1 Gram Ivpb) 1 gm in 100 mls @ 100 mls/hr IVPB DAILY [facility] PRN Reason: Protocol Last Admin: 08/02/16 09:59 Dose: 100 mls/hr Sodium Chloride (Sodium Chloride 0.9%) 1,000 mls @ 75 mls/hr IV .[id number] [facility] Metoprolol Tartrate (Lopressor) 50 mg PO BID [facility] Last Admin: 08/02/16 09:56 Dose: 50 mg Morphine Sulfate (Morphine) 1 mg IVP Q4H [facility] PRN Reason: Pain, moderate (4-7) Last Admin: 07/31/16 21:56 Dose: 1 mg Pantoprazole Sodium (Protonix Ec Tab) 20 mg PO ACB [facility] Last Admin: 08/02/16 09:59 Dose: 20 mg Valsartan (Diovan) 320 mg PO DAILY [facility] Last Admin: 08/02/16 09:56 Dose: 320 mg Physical Exam - Constitutional Appears: No Acute Distress - Head Exam Head Exam: NORMAL INSPECTION - Eye Exam Eye Exam: Normal appearance. absent: Scleral icterus - ENT Exam ENT Exam: Mucous Membranes Moist - Neck Exam Neck exam: Positive for: Normal Inspection - Respiratory Exam Respiratory Exam: Clear to Auscultation Bilateral, NORMAL BREATHING PATTERN. absent: Respiratory Distress - Cardiovascular Exam Cardiovascular Exam: +S1, +S2 - GI/Abdominal Exam GI & Abdominal Exam: Normal Bowel Sounds, Soft, Tenderness (LLQ, has drainage catheter, no blood noted ). absent: Guarding, Rebound - Extremities Exam Extremities exam: Negative for: calf tenderness, pedal edema - Neurological Exam Neurological exam: Alert, Oriented x3 - Skin Skin Exam: Dry, Warm Results - Vital Signs Recent Vital Signs: Last Vital Signs Temp 99.2 F 08/02/16 07:30 Pulse 59 L 08/02/16 07:30 Resp 18 08/02/16 07:30 BP 140/66 08/02/16 07:30 Pulse Ox 99 08/02/16 07:30 - Labs Result Diagrams: 08/02/16 07:30 08/02/16 07:30 Labs: Laboratory Results - last 24 hr 08/01/16 08/01/16 08/01/16 07:00 07:00 18:00 WBC 8.5 D RBC 2.48 L Hgb 7.1 L Hct 22.7 L MCV 91.5 MCH 28.6 MCHC 31.3 RDW 20.2 H Plt Count 315 MPV 9.3 Sodium 131 L Potassium 4.1 Chloride 103 Carbon Dioxide 23 Anion Gap 9 L BUN 8 Creatinine 0.4 L Est GFR ( Amer) > 60 Est GFR (Non-Af Amer) > 60 Random Glucose 75 Calcium 7.5 L Phosphorus 2.7 Magnesium 1.8 Total Bilirubin 0.5 AST 29 ALT 32 Alkaline Phosphatase 182 H Total Protein 5.0 L Albumin 2.0 L Globulin 3.0 Albumin/Globulin Ratio 0.7 L Blood Type O POSITIVE Antibody Screen Negative Crossmatch See Detail BBK History Checked Patient has bt 08/02/16 08/02/16 07:30 07:30 WBC 6.5 D RBC 3.63 Hgb 10.6 L Hct 32.4 L MCV 89.3 MCH 29.2 MCHC 32.7 RDW 17.6 H Plt Count 327 MPV 9.4 Sodium 133 Potassium 3.5 L Chloride 103 Carbon Dioxide 23 Anion Gap 11 BUN 6 L Creatinine 0.4 L Est GFR ( Amer) > 60 Est GFR (Non-Af Amer) > 60 Random Glucose 78 Calcium 7.7 L Phosphorus Magnesium Total Bilirubin 1.2 AST 40 H ALT 35 Alkaline Phosphatase 194 H Total Protein 5.7 L Albumin 2.3 L Globulin 3.4 Albumin/Globulin Ratio 0.7 L Blood Type Antibody Screen Crossmatch BBK History Checked Assessment & Plan - Assessment and Plan (Free Text) Assessment: ASSESSMENT: Diverticulosis w/diverticular abcess, s/p drain Constipation Anemia s/p 2U PRBC CAD, s/p stents HTN PLAN: clear liquid continue PPI on IV antibiotics: ceftriaxone, flagyl monitor H/H DVT prophylaxsis on Iron supplement on Colace plans for surgical intervention, timing as per surgery. Thank you for this consult and for allowing us to participate in your patients care, will make further recommendations based upon clinical course. Seen and discussed with Dr. Archuleta.
--- NOTE | 2016-08-02 16:05 | CP.PCM.PN ---
Subjective - Date & Time of Evaluation Date of Evaluation: 08/02/16 Time of Evaluation: 14:15 - Subjective Subjective: Infectious Disease Follow Up: August 02, 2016 85 yo female sent to [facility] from Dr. Keita's office after discovery of purulent drainage from left lower abdominal drain site. She has a history of hypertension, GI bleed, CAD with stents, anemia, and osteoporosis. Many of her hospitalizations last year were for GI bleed. 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 She is currently on ceftriaxone and Flagyl. This will cover most recurrences of E. coli. Taken to IR by Dr. Zaldivra on Friday. 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 IR drain is still showing fecal material. For possible OR next week. E. coli in cultures of wound site. Yeast in urine cultures. Objective - Vital Signs/Intake and Output Vital Signs (last 24 hours): Temp Pulse Resp BP Pulse Ox 99.2 F 59 L 18 140/66 99 08/02/16 07:30 08/02/16 07:30 08/02/16 07:30 08/02/16 07:30 08/02/16 07:30 Intake and Output: 08/02/16 08/02/16 06:59 18:59 Intake Total 1045 435 Balance 1045 435 - Medications Medications: Current Medications Alendronate Sodium (Fosamax) 70 mg PO Q7D [facility] Last Admin: 07/31/16 10:32 Dose: 70 mg Aspirin (Ecotrin) 81 mg PO DAILY [facility] Last Admin: 08/02/16 14:43 Dose: 81 mg Atorvastatin Calcium (Lipitor) 40 mg PO DIN [facility] Last Admin: 07/31/16 18:07 Dose: 40 mg Calcium Carbonate (Oscal) 500 mg PO DAILY [facility] Last Admin: 08/02/16 09:56 Dose: 500 mg Docusate Sodium (Colace) 100 mg PO TID [facility] Last Admin: 08/02/16 09:56 Dose: 100 mg Donepezil HCl (Aricept) 10 mg PO HS [facility] Last Admin: 08/01/16 21:39 Dose: 10 mg Enoxaparin Sodium (Lovenox) 30 mg SC DAILY [facility] PRN Reason: Protocol Last Admin: 08/02/16 13:25 Dose: 30 mg Ferrous Sulfate (Feosol) 324 mg PO TID [facility] Last Admin: 08/02/16 14:36 Dose: 324 mg Metronidazole (Flagyl) 500 mg in 100 mls @ 100 mls/hr IVPB Q8 [facility] PRN Reason: Protocol Last Admin: 08/02/16 14:35 Dose: 100 mls/hr Ceftriaxone Sodium (Rocephin 1 Gram Ivpb) 1 gm in 100 mls @ 100 mls/hr IVPB DAILY [facility] PRN Reason: Protocol Last Admin: 08/02/16 09:59 Dose: 100 mls/hr Sodium Chloride (Sodium Chloride 0.9%) 1,000 mls @ 75 mls/hr IV .[id number] [facility] Metoprolol Tartrate (Lopressor) 50 mg PO BID [facility] Last Admin: 08/02/16 09:56 Dose: 50 mg Morphine Sulfate (Morphine) 1 mg IVP Q4H [facility] PRN Reason: Pain, moderate (4-7) Last Admin: 08/02/16 14:43 Dose: 1 mg Pantoprazole Sodium (Protonix Ec Tab) 20 mg PO ACB [facility] Last Admin: 08/02/16 09:59 Dose: 20 mg Valsartan (Diovan) 320 mg PO DAILY [facility] Last Admin: 08/02/16 09:56 Dose: 320 mg - Labs Labs: 08/02/16 07:30 08/02/16 07:30 PT 12.9 Seconds (9.9-11.8) H 07/30/16 16:30 INR 1.19 (0.93-1.08) H 07/30/16 16:30 APTT 28.7 Seconds (23.7-30.8) 07/30/16 16:30 - Constitutional Appears: Non-toxic, No Acute Distress, Chronically Ill - Head Exam Head Exam: ATRAUMATIC, NORMOCEPHALIC - Eye Exam Eye Exam: EOMI, PERRL Pupil Exam: NORMAL ACCOMODATION, PERRL - ENT Exam ENT Exam: Mucous Membranes Moist, Normal External Ear Exam, TM's Normal Bilaterally - Neck Exam Neck Exam: Full ROM, Normal Inspection - Respiratory Exam Respiratory Exam: Clear to Ausculation Bilateral, NORMAL BREATHING PATTERN. absent: Rales, Rhonchi, Wheezes - Cardiovascular Exam Cardiovascular Exam: Tachycardia, +S1, +S2 - GI/Abdominal Exam GI & Abdominal Exam: Soft, Normal Bowel Sounds. absent: Distended, Tenderness Additional comments: IR drain in place. - Extremities Exam Extremities Exam: Full ROM, Normal Inspection - Neurological Exam Neurological Exam: Alert, Awake, CN II-XII Intact, Oriented x3 - Psychiatric Exam Psychiatric exam: Normal Affect, Normal Mood - Skin Skin Exam: Intact, Normal Color Assessment and Plan - Assessment and Plan (Free Text) Assessment: 86 yo female with intra-abdominal abscess presenting with drainage of pus. Taken by IR for drain placement. Spoke with Dr. Zaldivar in detail regarding case. He fears formation of fistula at this time. On Rocephin and Metronidazole. Last hospitalization showed VRE and E. coli growth. Supportive care with low tolerance for switching antibiotics to one such as meropenem. Current culture is showing E. coli that is sensitive to Rocephin. Will switch rocephin to Ancef. Add Diflucan to cover yeast in the urine. New cultures taken. Supportive care Thank you for allowing me to participate in the care of the patient, we will follow with you.
[2016-08-02] MEDS: Fluconazole IV 200mg/100 ml NS 100 ML IVPB SCH (17:51)
[2016-08-02] MEDS: Sodium Chloride 0.9% 1,000 ML IV SCH (17:54)
--- NOTE | 2016-08-02 19:47 | US ---
HISTORY: Leg pain and swelling. Evaluate for DVT PHYSICIAN(S): Esa Zaldivar MD. TECHNIQUE: Duplex sonography and color-flow Doppler with graded compression were used to evaluate the deep venous systems of both lower extremities. The exam is limited by edema. The tibial veins are not well seen. FINDINGS: The visualized deep venous systems of both lower extremities are sonographically normal and compressible. Normal wave forms and augmentation are seen. There is no sonographic evidence for deep venous thrombosis in the visualized segments of both lower extremities. IMPRESSION: No sonographic evidence for deep venous thrombosis in the visualized segments of both lower extremities.
[2016-08-02] MEDS: ceFAZolin 1 gm in NS 1 GM/100 ML BAG IVPB SCH (22:28)
[2016-08-03] MEDS: ceFAZolin 1 gm in NS 1 GM/100 ML BAG IVPB SCH ×3 (05:30→21:22)
[2016-08-03] MEDS: metroNIDAZOLE IV 500 mg/100 ml 500 MG/100 ML BAG IVPB SCH ×3 (08:55→22:32)
--- NOTE | 2016-08-03 09:00 | CON ---
DATE: 08/02/2016 This patient is seen and evaluated today. This is an addendum to the GI consultation report dictated by Arina Guerrero NP. The CT scan and previous admission records reviewed. The patient did have a pe rforated abscess, diverticular perforation with an abscess, status post drainage. 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 We will discuss with the surgical team again. Thank you very much for allowing us to participate in the care of the patient. Long Archuleta MD cc: [id number] TT: 08/03/2016 09:00:05 Confirmation # [id number] Dictation # [id number]
[2016-08-03] MEDS ORDERED: Potassium Chloride 20 mEq ER Tab PO ONE (09:33)
[2016-08-03 10:10] LABS: ADD MANUAL DIFF? NO
[2016-08-03 10:18] LABS: BASO # 0.01 K/mm3 (0.0-2.0); BASO % 0.1 % (0.0-3.0); EOS # 0.1 (0.0-0.7); GRAN # 5.22 (1.4-6.5); GRAN % 74.8 % (50.0-68.0); HEMATOCRIT 33.6 % (36.0-48.0); LYMPH # 0.9 (1.2-3.4); LYMPH % 12.5 % (22.0-35.0); MEAN CELL VOLUME 89.4 fL (80.0-105.0); MEAN CORPUSCULAR HEMOGLOBIN 29.5 pg (25.0-35.0); MONO # 0.8 (0.1-0.6); MONO % 11.6 % (1.0-6.0); PLATELET COUNT 298 10^3/uL (120.0-450.0)
[2016-08-03 10:22] LABS: ALB/GLOB RATIO 0.7 (1.1-1.8); ALKALINE PHOSPHATASE 201 U/L (38-133); ALT/SGPT 40 U/L (7-56); AST/SGOT 47 U/L (15-39); BILIRUBIN,TOTAL 0.4 mg/dL (0.2-1.3); BLOOD UREA NITROGEN 3 mg/dL (7-21); CALCIUM 7.5 mg/dL (8.4-10.5); CARBON DIOXIDE 21 mmol/L (21-33); CHLORIDE 105 mmol/L (95-110); GFR AFRICAN-AMERICAN > 60; GLUCOSE,RANDOM 99 mg/dL (70-110); POTASSIUM 3.8 mmol/L (3.6-5.0); SODIUM 135 mmol/L (132-148); TOTAL PROTEIN 5.4 g/dL (5.8-8.3)
[2016-08-03] MEDS: Enoxaparin 30 mg Syringe SC SCH (11:10)
[2016-08-03] MEDS: Fluconazole IV 200mg/100 ml NS 100 ML IVPB SCH (11:10)
[2016-08-03] MEDS: Pantoprazole 20 mg EC Tab PO SCH (11:26)
--- NOTE | 2016-08-03 13:28 | PN ---
DATE: 08/03/2016 I am seeing the patient for Dr. Diaz today, he is off. I saw the patient resting in bed. She is in no acute distress. She is looking at me and talking at me. There is no pain at this time. No nausea, vomiting, no chest pain, no shortness of breath, no a bdominal pain. PHYSICAL EXAMINATION: VITAL SIGNS: She has a 97.5 temp, 53 pulse, 151/70 blood pressure, 20 respiratory rate, 100% O2 sat on room air. HEAD: Atraumatic, normocephalic. Throat is dry. NECK: Supple. HEART: Regular rate. LUNGS: Decreased breath sounds bilaterally but clear. ABDOMEN: Soft, nontender, positive bowel sounds. EXTREMITIES: No edema. MEDICATIONS: She is currently on Ancef, Aricept, Colace, Diflucan IV, Diovan, Ecotrin, Feosol, Flagy l IV, Fosamax, Lipitor, metoprolol, Lovenox, morphine, Os-Tera, Protonix, IV fluids, Tylenol, potassiu m replacement. LABORATORY DATA: She has a 7 white count, 11.1 hemoglobin, 32.6 hematocrit with 298 platelets, 135 s odium, potassium 3.8, BUN is 3, creatinine 0.4. GFR is greater than 60. Sugar is 99, calcium 7.5. Total bili is 0.4. AST is 47, ALT is 40, alk phos 201, total protein is 5.4. Albumin is 2.2. ASSESSMENT AND PLAN: She is being seen by GI, infectious disease, cardiology. She is having multipl e issues, intra-abdominal abscess, pulmonary hypertension, high cholesterol, anemia, low potassium, d ementia. We will continue with aggressive treatment and care, IV antibiotics and fluids and physical therapy. We will check her labs tomorrow. Phu Narvaez DO cc: [id number] TT: 08/03/2016 13:27:58 Confirmation # [id number] Dictation # [id number]
--- NOTE | 2016-08-03 21:03 | CP.PCM.PN ---
Subjective - Date & Time of Evaluation Date of Evaluation: 08/03/16 Time of Evaluation: 18:15 - Subjective Subjective: Infectious Disease Follow Up: August 03, 2016 85 yo female sent to [facility] from Dr. Keita's office after discovery of purulent drainage from left lower abdominal drain site. She has a history of hypertension, GI bleed, CAD with stents, anemia, and osteoporosis. Many of her hospitalizations last year were for GI bleed. 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 She is currently on ceftriaxone and Flagyl. This will cover most recurrences of E. coli. Taken to IR by Dr. Zaldivar on Friday. 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 IR drain is still showing fecal material. For possible OR next week. E. coli in cultures of wound site. Yeast in urine cultures. Objective - Vital Signs/Intake and Output Vital Signs (last 24 hours): Temp Pulse Resp BP Pulse Ox 97.9 F 66 20 169/85 H 100 08/03/16 16:59 08/03/16 17:48 08/03/16 16:59 08/03/16 17:48 08/03/16 16:59 Intake and Output: 08/03/16 08/04/16 18:59 06:59 Intake Total 920 Output Total 1 Balance 919 - Medications Medications: Current Medications Acetaminophen (Tylenol 325mg Tab) 650 mg PO Q6H PRN PRN Reason: Fever >100.4 F Last Admin: 08/02/16 20:11 Dose: 650 mg Alendronate Sodium (Fosamax) 70 mg PO Q7D [facility] Last Admin: 07/31/16 10:32 Dose: 70 mg Aspirin (Ecotrin) 81 mg PO DAILY [facility] Last Admin: 08/03/16 11:25 Dose: 81 mg Atorvastatin Calcium (Lipitor) 40 mg PO DIN [facility] Last Admin: 08/03/16 17:47 Dose: 40 mg Calcium Carbonate (Oscal) 500 mg PO DAILY [facility] Last Admin: 08/03/16 11:10 Dose: 500 mg Docusate Sodium (Colace) 100 mg PO TID [facility] Last Admin: 08/03/16 17:50 Dose: 100 mg Donepezil HCl (Aricept) 10 mg PO HS [facility] Last Admin: 08/02/16 22:29 Dose: 10 mg Enoxaparin Sodium (Lovenox) 30 mg SC DAILY [facility] PRN Reason: Protocol Last Admin: 08/03/16 11:10 Dose: 30 mg Ferrous Sulfate (Feosol) 324 mg PO TID [facility] Last Admin: 08/03/16 17:50 Dose: 324 mg Metronidazole (Flagyl) 500 mg in 100 mls @ 100 mls/hr IVPB Q8 [facility] PRN Reason: Protocol Last Admin: 08/03/16 16:21 Dose: 100 mls/hr Sodium Chloride (Sodium Chloride 0.9%) 1,000 mls @ 75 mls/hr IV .[id number] [facility] Last Admin: 08/02/16 17:54 Dose: 75 mls/hr Cefazolin Sodium (Ancef 1gm In Ns) 1 gm in 100 mls @ 100 mls/hr IVPB Q8 [facility] PRN Reason: Protocol Last Admin: 08/03/16 14:25 Dose: 100 mls/hr Fluconazole (Diflucan Iv 200 Mg/100 Ml Ns) 100 mls @ 100 mls/hr IVPB DAILY [facility] PRN Reason: Protocol Last Admin: 08/03/16 11:10 Dose: 100 mls/hr Metoprolol Tartrate (Lopressor) 50 mg PO BID [facility] Last Admin: 08/03/16 17:48 Dose: 50 mg Morphine Sulfate (Morphine) 1 mg IVP Q4H PRN PRN Reason: Pain, moderate (4-7) Last Admin: 08/02/16 14:43 Dose: 1 mg Pantoprazole Sodium (Protonix Ec Tab) 20 mg PO ACB [facility] Last Admin: 08/03/16 11:26 Dose: 20 mg Valsartan (Diovan) 320 mg PO DAILY [facility] Last Admin: 08/03/16 11:25 Dose: 320 mg - Labs Labs: 08/03/16 09:50 08/03/16 09:50 PT 12.9 Seconds (9.9-11.8) H 07/30/16 16:30 INR 1.19 (0.93-1.08) H 07/30/16 16:30 APTT 28.7 Seconds (23.7-30.8) 07/30/16 16:30 - Constitutional Appears: Non-toxic, No Acute Distress, Chronically Ill - Head Exam Head Exam: ATRAUMATIC, NORMOCEPHALIC - Eye Exam Eye Exam: EOMI, PERRL Pupil Exam: NORMAL ACCOMODATION, PERRL - ENT Exam ENT Exam: Mucous Membranes Moist, Normal External Ear Exam, TM's Normal Bilaterally - Neck Exam Neck Exam: Full ROM, Normal Inspection - Respiratory Exam Respiratory Exam: Clear to Ausculation Bilateral, NORMAL BREATHING PATTERN. absent: Rales, Rhonchi, Wheezes - Cardiovascular Exam Cardiovascular Exam: REGULAR RHYTHM, RRR, +S1, +S2 - GI/Abdominal Exam GI & Abdominal Exam: Soft, Normal Bowel Sounds. absent: Distended, Tenderness Additional comments: IR drain in place. - Extremities Exam Extremities Exam: Full ROM, Normal Inspection - Neurological Exam Neurological Exam: Alert, Awake, CN II-XII Intact, Oriented x3 - Psychiatric Exam Psychiatric exam: Normal Affect, Normal Mood - Skin Skin Exam: Intact, Normal Color Assessment and Plan - Assessment and Plan (Free Text) Assessment: 86 yo female with intra-abdominal abscess presenting with drainage of pus. Taken by IR for drain placement. Spoke with Dr. Zaldivar in detail regarding case. He fears formation of fistula at this time. On Rocephin and Metronidazole. Last hospitalization showed VRE and E. coli growth. Supportive care with low tolerance for switching antibiotics to one such as meropenem. Current culture is showing E. coli that is sensitive to Rocephin and Ancef. On Ancef now. On Diflucan to cover yeast in the urine. New cultures taken. Supportive care Thank you for allowing me to participate in the care of the patient, we will follow with you.
--- NOTE | 2016-08-03 21:50 | CP.PCM.PN ---
<MathewFranck - Last Filed: 08/03/16 21:47> Subjective - Date & Time of Evaluation Date of Evaluation: 08/03/16 Time of Evaluation: 21:47 - Subjective Subjective: Pt s&e. NAEON. Pt resting comfortably. Dressing C/D/I. Objective - Vital Signs/Intake and Output Vital Signs (last 24 hours): Temp Pulse Resp BP Pulse Ox 97.9 F 66 20 169/85 H 100 08/03/16 16:59 08/03/16 17:48 08/03/16 16:59 08/03/16 17:48 08/03/16 16:59 Intake and Output: 08/03/16 08/04/16 18:59 06:59 Intake Total 920 360 Output Total 1 Balance 919 360 - Medications Medications: Current Medications Acetaminophen (Tylenol 325mg Tab) 650 mg PO Q6H PRN PRN Reason: Fever >100.4 F Last Admin: 08/02/16 20:11 Dose: 650 mg Alendronate Sodium (Fosamax) 70 mg PO Q7D [facility] Last Admin: 07/31/16 10:32 Dose: 70 mg Aspirin (Ecotrin) 81 mg PO DAILY [facility] Last Admin: 08/03/16 11:25 Dose: 81 mg Atorvastatin Calcium (Lipitor) 40 mg PO DIN [facility] Last Admin: 08/03/16 17:47 Dose: 40 mg Calcium Carbonate (Oscal) 500 mg PO DAILY [facility] Last Admin: 08/03/16 11:10 Dose: 500 mg Docusate Sodium (Colace) 100 mg PO TID [facility] Last Admin: 08/03/16 17:50 Dose: 100 mg Donepezil HCl (Aricept) 10 mg PO HS [facility] Last Admin: 08/03/16 21:22 Dose: 10 mg Enoxaparin Sodium (Lovenox) 30 mg SC DAILY [facility] PRN Reason: Protocol Last Admin: 08/03/16 11:10 Dose: 30 mg Ferrous Sulfate (Feosol) 324 mg PO TID [facility] Last Admin: 08/03/16 17:50 Dose: 324 mg Metronidazole (Flagyl) 500 mg in 100 mls @ 100 mls/hr IVPB Q8 [facility] PRN Reason: Protocol Last Admin: 08/03/16 16:21 Dose: 100 mls/hr Sodium Chloride (Sodium Chloride 0.9%) 1,000 mls @ 75 mls/hr IV .[id number] [facility] Last Admin: 08/02/16 17:54 Dose: 75 mls/hr Cefazolin Sodium (Ancef 1gm In Ns) 1 gm in 100 mls @ 100 mls/hr IVPB Q8 [facility] PRN Reason: Protocol Last Admin: 08/03/16 21:22 Dose: 100 mls/hr Fluconazole (Diflucan Iv 200 Mg/100 Ml Ns) 100 mls @ 100 mls/hr IVPB DAILY [facility] PRN Reason: Protocol Last Admin: 08/03/16 11:10 Dose: 100 mls/hr Metoprolol Tartrate (Lopressor) 50 mg PO BID [facility] Last Admin: 08/03/16 17:48 Dose: 50 mg Morphine Sulfate (Morphine) 1 mg IVP Q4H PRN PRN Reason: Pain, moderate (4-7) Last Admin: 08/02/16 14:43 Dose: 1 mg Pantoprazole Sodium (Protonix Ec Tab) 20 mg PO ACB [facility] Last Admin: 08/03/16 11:26 Dose: 20 mg Valsartan (Diovan) 320 mg PO DAILY [facility] Last Admin: 08/03/16 11:25 Dose: 320 mg - Labs Labs: 08/03/16 09:50 08/03/16 09:50 PT 12.9 Seconds (9.9-11.8) H 07/30/16 16:30 INR 1.19 (0.93-1.08) H 07/30/16 16:30 APTT 28.7 Seconds (23.7-30.8) 07/30/16 16:30 - Constitutional Appears: No Acute Distress - Head Exam Head Exam: ATRAUMATIC, NORMAL INSPECTION, NORMOCEPHALIC - Eye Exam Eye Exam: EOMI, Normal appearance, PERRL Pupil Exam: NORMAL ACCOMODATION, PERRL - ENT Exam ENT Exam: Mucous Membranes Moist, Normal Exam - Neck Exam Neck Exam: Full ROM, Normal Inspection. absent: Lymphadenopathy - Respiratory Exam Respiratory Exam: NORMAL BREATHING PATTERN - GI/Abdominal Exam GI & Abdominal Exam: Soft, Tenderness. absent: Distended, Firm, Guarding, Rigid , Hernia, Mass, Pulsatile Mass, Rebound Additional comments: Dressing C/D/I - Extremities Exam Extremities Exam: Full ROM, Normal Capillary Refill, Normal Inspection. absent : Joint Swelling, Pedal Edema - Back Exam Back Exam: NORMAL INSPECTION - Neurological Exam Neurological Exam: Alert, Awake, CN II-XII Intact, Normal Gait, Oriented x3 - Psychiatric Exam Psychiatric exam: Normal Affect, Normal Mood - Skin Skin Exam: Dry, Intact, Normal Color, Warm Assessment and Plan - Assessment and Plan (Free Text) Assessment: LLQ intraabdominal abscess and colovesicular fistula Surgery planned next week Diet per surgery DW Dr. Archuleta <Long Arcuhleta V - Last Filed: 08/04/16 13:25> Objective - Vital Signs/Intake and Output Vital Signs (last 24 hours): Temp Pulse Resp BP Pulse Ox 97.9 F 66 20 169/85 H 100 08/03/16 16:59 08/03/16 17:48 08/03/16 16:59 08/03/16 17:48 08/03/16 16:59 Intake and Output: 08/03/16 08/04/16 18:59 06:59 Intake Total 920 360 Output Total 1 Balance 919 360 - Medications Medications: Current Medications Acetaminophen (Tylenol 325mg Tab) 650 mg PO Q6H PRN PRN Reason: Fever >100.4 F Last Admin: 08/02/16 20:11 Dose: 650 mg Alendronate Sodium (Fosamax) 70 mg PO Q7D [facility] Last Admin: 07/31/16 10:32 Dose: 70 mg Aspirin (Ecotrin) 81 mg PO DAILY [facility] Last Admin: 08/03/16 11:25 Dose: 81 mg Atorvastatin Calcium (Lipitor) 40 mg PO DIN [facility] Last Admin: 08/03/16 17:47 Dose: 40 mg Calcium Carbonate (Oscal) 500 mg PO DAILY [facility] Last Admin: 08/03/16 11:10 Dose: 500 mg Docusate Sodium (Colace) 100 mg PO TID [facility] Last Admin: 08/03/16 17:50 Dose: 100 mg Donepezil HCl (Aricept) 10 mg PO HS [facility] Last Admin: 08/03/16 21:22 Dose: 10 mg Enoxaparin Sodium (Lovenox) 30 mg SC DAILY [facility] PRN Reason: Protocol Last Admin: 08/03/16 11:10 Dose: 30 mg Ferrous Sulfate (Feosol) 324 mg PO TID [facility] Last Admin: 08/03/16 17:50 Dose: 324 mg Metronidazole (Flagyl) 500 mg in 100 mls @ 100 mls/hr IVPB Q8 [facility] PRN Reason: Protocol Last Admin: 08/03/16 22:32 Dose: 100 mls/hr Sodium Chloride (Sodium Chloride 0.9%) 1,000 mls @ 75 mls/hr IV .[id number] [facility] Last Admin: 08/02/16 17:54 Dose: 75 mls/hr Cefazolin Sodium (Ancef 1gm In Ns) 1 gm in 100 mls @ 100 mls/hr IVPB Q8 [facility] PRN Reason: Protocol Last Admin: 08/03/16 21:22 Dose: 100 mls/hr Fluconazole (Diflucan Iv 200 Mg/100 Ml Ns) 100 mls @ 100 mls/hr IVPB DAILY [facility] PRN Reason: Protocol Last Admin: 08/03/16 11:10 Dose: 100 mls/hr Metoprolol Tartrate (Lopressor) 50 mg PO BID [facility] Last Admin: 08/03/16 17:48 Dose: 50 mg Morphine Sulfate (Morphine) 1 mg IVP Q4H PRN PRN Reason: Pain, moderate (4-7) Last Admin: 08/02/16 14:43 Dose: 1 mg Pantoprazole Sodium (Protonix Ec Tab) 20 mg PO ACB [facility] Last Admin: 08/03/16 11:26 Dose: 20 mg Valsartan (Diovan) 320 mg PO DAILY [facility] Last Admin: 08/03/16 11:25 Dose: 320 mg - Labs Labs: 08/03/16 09:50 08/03/16 09:50 PT 12.9 Seconds (9.9-11.8) H 07/30/16 16:30 INR 1.19 (0.93-1.08) H 07/30/16 16:30 APTT 28.7 Seconds (23.7-30.8) 07/30/16 16:30 Assessment and Plan - Assessment and Plan (Free Text) Plan: The patient was seen and examined at bedside. Medical records, lab studies, imagings were reviewed. Last 24 hours events reviewed. Agreed with the above findings and treatment plan as outlined in "s notes the with the addition of the following Tenderness LLQ drain in place planned for OR on friday
[2016-08-04] MEDS: Sodium Chloride 0.9% 1,000 ML IV SCH ×2 (01:09→14:43)
[2016-08-04] MEDS: ceFAZolin 1 gm in NS 1 GM/100 ML BAG IVPB SCH ×3 (05:00→21:38)
[2016-08-04] MEDS: metroNIDAZOLE IV 500 mg/100 ml 500 MG/100 ML BAG IVPB SCH ×4 (05:33→22:28)
[2016-08-04 07:23] LABS: ADD MANUAL DIFF? NO
[2016-08-04 07:31] LABS: BASO # 0.01 K/mm3 (0.0-2.0); BASO % 0.1 % (0.0-3.0); EOS # 0.1 (0.0-0.7); EOS % 1.2 % (1.5-5.0); GRAN # 4.77 (1.4-6.5); GRAN % 68.9 % (50.0-68.0); LYMPH # 1.3 (1.2-3.4); LYMPH % 19.4 % (22.0-35.0); MEAN CELL VOLUME 90.4 fL (80.0-105.0); MEAN CORPUSCULAR HEMOGLOBIN 29.4 pg (25.0-35.0); MEAN CORPUSCULAR HGB CONC 32.6 g/dl (31.0-37.0); MEAN PLATELET VOLUME 9.4 fl (7.0-11.0); MONO # 0.7 (0.1-0.6); MONO % 10.4 % (1.0-6.0); PLATELET COUNT 313 10^3/uL (120.0-450.0); RED CELL DISTRIBUTION WIDTH 18.1 % (11.5-14.5); WHITE BLOOD COUNT 6.9 10^3/ul (4.5-11.0)
[2016-08-04 07:46] LABS: ALB/GLOB RATIO 0.7 (1.1-1.8); ALKALINE PHOSPHATASE 187 U/L (38-133); ALT/SGPT 38 U/L (7-56); AST/SGOT 53 U/L (15-39); BILIRUBIN,TOTAL 0.4 mg/dL (0.2-1.3); BLOOD UREA NITROGEN 3 mg/dL (7-21); CALCIUM 7.5 mg/dL (8.4-10.5); CARBON DIOXIDE 20 mmol/L (21-33); CHLORIDE 108 mmol/L (98-107); GFR AFRICAN-AMERICAN > 60; GLUCOSE,RANDOM 67 mg/dL (70-110); POTASSIUM 3.9 mmol/L (3.6-5.0); SODIUM 133 mmol/L (132-148); TOTAL PROTEIN 4.8 g/dL (5.8-8.3)
[2016-08-04] MEDS: Fluconazole IV 200mg/100 ml NS 100 ML IVPB SCH (09:50)
[2016-08-04] MEDS: Enoxaparin 30 mg Syringe SC SCH (09:54)
--- NOTE | 2016-08-04 10:57 | PN ---
DATE: 08/04/2016 I saw her resting in bed. She is very alert this morning and talking to me. She is telling me that the stomach is fine, no pain at this time. She would like to get out of bed, maybe get some physical therapy. I can do that for her. She is being seen by multiple doctors, infectious disease, GI, car diology, the residents. She is here for recurrent abdominal abscess, stable angina, pulmonary hypertension, anemia, low potas sium, mild dementia. PHYSICAL EXAMINATION: VITAL SIGNS: Temp 97.9, 66 pulse, 169/85 blood pressure, 20 respiratory rate and 100% O2 sat on room air. HEENT: Head is atraumatic, normocephalic. GENERAL: She is alert, she is smiling, she is talking to me pleasantly. She is on IV antibiotics. HEART: Regular rate. LUNGS: Clear to auscultation. ABDOMEN: Soft, positive bowel sounds, not distended, nontender. EXTREMITIES: No edema. She is currently on Ancef IV, Aricept, Colace, Diflucan IV, Diovan, Ecotrin, Feosol, Flagyl IV, Fosam ax, Lipitor, Lopressor, Lovenox, morphine, Os-Tera, Protonix, IV fluids, Tylenol. We will continue her current treatment and care for her infections. I am going to order out of bed t o chair and physical therapy. Encourage her to eat well. We will check her labs tomorrow. She had a 6.9 white count, 10.1 hemoglobin, 31 hematocrit with 313 platelets. Sodium 133, potassium 3.9, BUN is 3, creatinine 0.4, GFR is greater than 60, sugar is 67, calcium 7.5, total bili is 0.4, A ST is 53, ALT is 38, alk phos 187, total protein 4.8. We will continue with aggressive treatment and care on this patient. Dictating for Dr. Diaz, who is off this weekend. Phu Narvaez DO cc: [id number] TT: 08/04/2016 10:56:34 Confirmation # [id number] Dictation # [id number] en
[2016-08-04] MEDS: Pantoprazole 20 mg EC Tab PO SCH (14:35)
--- NOTE | 2016-08-04 17:18 | PN ---
DATE: 08/04/2016 This patient was seen and evaluated earlier. The patient in acute distress, comfortable. PHYSICAL EXAMINATION: VITAL SIGNS: Temperature is 97.1, pulse is 63, blood pressure is 109/67. HEENT: Atraumatic, anicteric. NECK: Supple. HEART: S1, S2 heard. LUNGS: Bilateral air entry present. ABDOMEN: Soft. There was tenderness present in the left side of the abdomen. The drainage tube present. The abscess drainage catheter present. EXTREMITIES: No cyanosis. LABORATORY DATA: Hemoglobin 10, hematocrit 31, WBCs 6.9, platelets 313. Chemistry: BUN 3, creatinine 0.4, alkaline phosphatase 187. IMPRESSION/PLAN: This 86-year-old patient with a history of vesicocolic fistula , now has the diverticular abscess, now has status post drainage of the abscess cavity. Plan for surgery. The patient did have last colonoscopy in 11/2015, found to have extensive diverticulosis sigmoid colon and descending colon. The patient is scheduled for surgery. Thank you very much for allowing us to participate in the care of the patient. Long Archuleta MD cc: [id number] TT: 08/04/2016 17:17:28 Confirmation # [id number] Dictation # [id number] en MTDD
--- NOTE | 2016-08-04 17:57 | CP.PCM.PN ---
Subjective - Date & Time of Evaluation Date of Evaluation: 08/04/16 Time of Evaluation: 16:45 - Subjective Subjective: Infectious Disease Follow Up: August 04, 2016 85 yo female sent to [facility] from Dr. Keita's office after discovery of purulent drainage from left lower abdominal drain site. She has a history of hypertension, GI bleed, CAD with stents, anemia, and osteoporosis. Many of her hospitalizations last year were for GI bleed. 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 She is currently on ceftriaxone and Flagyl. This will cover most recurrences of E. coli. Taken to IR by Dr. Zaldivar on Friday. 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 IR drain is still showing fecal material. For OR Friday. E. coli in cultures of wound site. Yeast in urine cultures. Objective - Vital Signs/Intake and Output Vital Signs (last 24 hours): Temp Pulse Resp BP Pulse Ox 98.2 F 64 22 130/74 99 08/04/16 16:00 08/04/16 16:00 08/04/16 16:00 08/04/16 16:00 08/04/16 08:00 Intake and Output: 08/04/16 08/04/16 06:59 18:59 Intake Total 2280 680 Output Total 46 Balance 2234 680 - Medications Medications: Current Medications Acetaminophen (Tylenol 325mg Tab) 650 mg PO Q6H PRN PRN Reason: Fever >100.4 F Last Admin: 08/04/16 10:00 Dose: 650 mg Alendronate Sodium (Fosamax) 70 mg PO Q7D [facility] Last Admin: 07/31/16 10:32 Dose: 70 mg Aspirin (Ecotrin) 81 mg PO DAILY [facility] Last Admin: 08/04/16 09:55 Dose: 81 mg Atorvastatin Calcium (Lipitor) 40 mg PO DIN [facility] Last Admin: 08/03/16 17:47 Dose: 40 mg Calcium Carbonate (Oscal) 500 mg PO DAILY [facility] Last Admin: 08/04/16 09:55 Dose: 500 mg Docusate Sodium (Colace) 100 mg PO TID [facility] Last Admin: 08/04/16 14:30 Dose: 100 mg Donepezil HCl (Aricept) 10 mg PO HS [facility] Last Admin: 08/03/16 21:22 Dose: 10 mg Enoxaparin Sodium (Lovenox) 30 mg SC DAILY [facility] PRN Reason: Protocol Last Admin: 08/04/16 09:54 Dose: 30 mg Ferrous Sulfate (Feosol) 324 mg PO TID [facility] Last Admin: 08/04/16 14:31 Dose: 324 mg Metronidazole (Flagyl) 500 mg in 100 mls @ 100 mls/hr IVPB Q8 [facility] PRN Reason: Protocol Last Admin: 08/04/16 14:28 Dose: 100 mls/hr Sodium Chloride (Sodium Chloride 0.9%) 1,000 mls @ 75 mls/hr IV .[id number] [facility] Last Admin: 08/04/16 14:43 Dose: 75 mls/hr Cefazolin Sodium (Ancef 1gm In Ns) 1 gm in 100 mls @ 100 mls/hr IVPB Q8 [facility] PRN Reason: Protocol Last Admin: 08/04/16 15:49 Dose: 100 mls/hr Fluconazole (Diflucan Iv 200 Mg/100 Ml Ns) 100 mls @ 100 mls/hr IVPB DAILY [facility] PRN Reason: Protocol Last Admin: 08/04/16 09:50 Dose: 100 mls/hr Metoprolol Tartrate (Lopressor) 50 mg PO BID [facility] Last Admin: 08/04/16 09:56 Dose: 50 mg Morphine Sulfate (Morphine) 1 mg IVP Q4H PRN PRN Reason: Pain, moderate (4-7) Last Admin: 08/02/16 14:43 Dose: 1 mg Pantoprazole Sodium (Protonix Ec Tab) 20 mg PO ACB [facility] Last Admin: 08/04/16 14:35 Dose: 20 mg Valsartan (Diovan) 320 mg PO DAILY [facility] Last Admin: 08/04/16 09:55 Dose: 320 mg - Labs Labs: 08/04/16 07:00 08/04/16 07:00 PT 12.9 Seconds (9.9-11.8) H 07/30/16 16:30 INR 1.19 (0.93-1.08) H 07/30/16 16:30 APTT 28.7 Seconds (23.7-30.8) 07/30/16 16:30 - Constitutional Appears: Non-toxic, No Acute Distress, Chronically Ill - Head Exam Head Exam: ATRAUMATIC, NORMOCEPHALIC - Eye Exam Eye Exam: EOMI, PERRL Pupil Exam: NORMAL ACCOMODATION, PERRL - ENT Exam ENT Exam: Mucous Membranes Moist, Normal External Ear Exam, TM's Normal Bilaterally - Neck Exam Neck Exam: Full ROM, Normal Inspection - Respiratory Exam Respiratory Exam: Clear to Ausculation Bilateral, NORMAL BREATHING PATTERN. absent: Rales, Rhonchi, Wheezes - Cardiovascular Exam Cardiovascular Exam: REGULAR RHYTHM, RRR, +S1, +S2 - GI/Abdominal Exam GI & Abdominal Exam: Soft, Normal Bowel Sounds. absent: Distended, Tenderness Additional comments: IR drain in place. - Extremities Exam Extremities Exam: Full ROM, Normal Inspection - Neurological Exam Neurological Exam: Alert, Awake, CN II-XII Intact, Oriented x3 - Psychiatric Exam Psychiatric exam: Normal Affect, Normal Mood - Skin Skin Exam: Intact, Normal Color Assessment and Plan - Assessment and Plan (Free Text) Assessment: 86 yo female with intra-abdominal abscess presenting with drainage of pus. Taken by IR for drain placement. Spoke with Dr. Zaldivar in detail regarding case. He fears formation of fistula at this time. On Rocephin and Metronidazole. Last hospitalization showed VRE and E. coli growth. Supportive care with low tolerance for switching antibiotics to one such as meropenem. Current culture is showing E. coli that is sensitive to Rocephin and Ancef. On Ancef now. On Diflucan to cover yeast in the urine. New cultures taken. Supportive care. For OR tomorrow. Thank you for allowing me to participate in the care of the patient, we will follow with you.
[2016-08-05] MEDS: ceFAZolin 1 gm in NS 1 GM/100 ML BAG IVPB SCH ×3 (05:24→21:45)
[2016-08-05] MEDS: Sodium Chloride 0.9% 1,000 ML IV SCH (05:50)
[2016-08-05] MEDS: metroNIDAZOLE IV 500 mg/100 ml 500 MG/100 ML BAG IVPB SCH ×3 (06:18→21:45)
[2016-08-05 06:54] LABS: ADD MANUAL DIFF? NO
[2016-08-05 07:19] LABS: EOS # 0.1 (0.0-0.7); EOS % 2.1 % (1.5-5.0); GRAN % 63.9 % (50.0-68.0); HEMATOCRIT 34.6 % (36.0-48.0); LYMPH # 1.3 (1.2-3.4); LYMPH % 23.1 % (22.0-35.0); MEAN CELL VOLUME 91.3 fL (80.0-105.0); MEAN CORPUSCULAR HEMOGLOBIN 28.8 pg (25.0-35.0); MEAN CORPUSCULAR HGB CONC 31.5 g/dl (31.0-37.0); MEAN PLATELET VOLUME 9.3 fl (7.0-11.0); MONO # 0.6 (0.1-0.6); MONO % 10.9 % (1.0-6.0); PLATELET COUNT 334 10^3/uL (120.0-450.0); RED CELL DISTRIBUTION WIDTH 18.4 % (11.5-14.5); WHITE BLOOD COUNT 5.8 10^3/ul (4.5-11.0)
[2016-08-05 07:22] LABS: ALB/GLOB RATIO 0.7 (1.1-1.8); ALKALINE PHOSPHATASE 235 U/L (38-133); ALT/SGPT 33 U/L (7-56); AST/SGOT 68 U/L (15-39); BILIRUBIN,TOTAL 0.5 mg/dL (0.2-1.3); BLOOD UREA NITROGEN 2 mg/dL (7-21); CALCIUM 7.5 mg/dL (8.4-10.5); CARBON DIOXIDE 22 mmol/L (21-33); CHLORIDE 108 mmol/L (95-110); GFR AFRICAN-AMERICAN > 60; GLUCOSE,RANDOM 72 mg/dL (70-110); POTASSIUM 3.8 mmol/L (3.6-5.0); SODIUM 135 mmol/L (132-148); TOTAL PROTEIN 5.3 g/dL (5.8-8.3)
--- NOTE | 2016-08-05 07:29 | CP.PCM.PN ---
<Jess Wilkerson - Last Filed: 08/05/16 16:23> Subjective - Date & Time of Evaluation Date of Evaluation: 08/05/16 Time of Evaluation: 07:55 - Subjective Subjective: Medicine progress note for Dr Zuniga and Dr Diaz service. Patient with no overnight acute events. Patient denies cp, sob, headache or dizziness. Patient denies n.v.d. Patient tolerating full liquid diet. Planed for OR tomorrow. Objective - Vital Signs/Intake and Output Vital Signs (last 24 hours): Temp Pulse Resp BP Pulse Ox 98.0 F 63 20 128/78 99 08/05/16 07:27 08/05/16 07:27 08/05/16 07:27 08/05/16 07:27 08/05/16 07:27 Intake and Output: 08/05/16 08/05/16 06:59 18:59 Intake Total 2280 Output Total 5 Balance 2275 - Medications Medications: Current Medications Acetaminophen (Tylenol 325mg Tab) 650 mg PO Q6H PRN PRN Reason: Fever >100.4 F Last Admin: 08/04/16 22:27 Dose: 650 mg Alendronate Sodium (Fosamax) 70 mg PO Q7D [facility] Last Admin: 07/31/16 10:32 Dose: 70 mg Aspirin (Ecotrin) 81 mg PO DAILY [facility] Last Admin: 08/04/16 09:55 Dose: 81 mg Atorvastatin Calcium (Lipitor) 40 mg PO DIN [facility] Last Admin: 08/04/16 17:51 Dose: 40 mg Calcium Carbonate (Oscal) 500 mg PO DAILY [facility] Last Admin: 08/04/16 09:55 Dose: 500 mg Cholecalciferol (Vitamin D) 2,000 iu PO DAILY [facility] Docusate Sodium (Colace) 100 mg PO TID [facility] Last Admin: 08/04/16 17:58 Dose: Not Given Donepezil HCl (Aricept) 10 mg PO HS [facility] Last Admin: 08/04/16 21:38 Dose: 10 mg Enoxaparin Sodium (Lovenox) 30 mg SC DAILY [facility] PRN Reason: Protocol Last Admin: 08/04/16 09:54 Dose: 30 mg Ferrous Sulfate (Feosol) 324 mg PO TID [facility] Last Admin: 08/04/16 17:52 Dose: 324 mg Metronidazole (Flagyl) 500 mg in 100 mls @ 100 mls/hr IVPB Q8 [facility] PRN Reason: Protocol Last Admin: 08/05/16 06:18 Dose: 100 mls/hr Sodium Chloride (Sodium Chloride 0.9%) 1,000 mls @ 75 mls/hr IV .[id number] [facility] Last Admin: 08/05/16 05:50 Dose: 75 mls/hr Cefazolin Sodium (Ancef 1gm In Ns) 1 gm in 100 mls @ 100 mls/hr IVPB Q8 [facility] PRN Reason: Protocol Last Admin: 08/05/16 05:24 Dose: 100 mls/hr Fluconazole (Diflucan Iv 200 Mg/100 Ml Ns) 100 mls @ 100 mls/hr IVPB DAILY [facility] PRN Reason: Protocol Last Admin: 08/04/16 09:50 Dose: 100 mls/hr Metoprolol Tartrate (Lopressor) 50 mg PO BID [facility] Last Admin: 08/04/16 17:52 Dose: 50 mg Morphine Sulfate (Morphine) 1 mg IVP Q4H PRN PRN Reason: Pain, moderate (4-7) Last Admin: 08/02/16 14:43 Dose: 1 mg Pantoprazole Sodium (Protonix Ec Tab) 20 mg PO ACB [facility] Last Admin: 08/04/16 14:35 Dose: 20 mg Valsartan (Diovan) 320 mg PO DAILY [facility] Last Admin: 08/04/16 09:55 Dose: 320 mg - Labs Labs: 08/05/16 06:30 08/04/16 07:00 PT 12.9 Seconds (9.9-11.8) H 07/30/16 16:30 INR 1.19 (0.93-1.08) H 07/30/16 16:30 APTT 28.7 Seconds (23.7-30.8) 07/30/16 16:30 - Constitutional Appears: Cachectic, Chronically Ill - Head Exam Head Exam: ATRAUMATIC, NORMAL INSPECTION, NORMOCEPHALIC - Eye Exam Eye Exam: EOMI, Normal appearance, PERRL. absent: Scleral icterus - ENT Exam ENT Exam: Mucous Membranes Dry - Neck Exam Neck Exam: Normal Inspection - Respiratory Exam Respiratory Exam: Clear to Ausculation Bilateral, NORMAL BREATHING PATTERN. absent: Rales, Rhonchi, Wheezes, Respiratory Distress, Stridor - Cardiovascular Exam Cardiovascular Exam: REGULAR RHYTHM, RRR, +S1, +S2 - GI/Abdominal Exam GI & Abdominal Exam: Soft, Normal Bowel Sounds. absent: Distended, Firm, Guarding, Tenderness Additional comments: IR drain in place, draining feculent discharge. - Extremities Exam Extremities Exam: Normal Inspection - Back Exam Back Exam: NORMAL INSPECTION - Neurological Exam Neurological Exam: Awake, Motor Sensory Deficit, Oriented x3 - Psychiatric Exam Psychiatric exam: Normal Affect, Normal Mood - Skin Skin Exam: Dry, Normal Color, Warm Assessment and Plan - Assessment and Plan (Free Text) Assessment: Patient is an 86 y/o with PMH of htn, CAD s/p stents, CHF, osteoporosis, microcytic anemia, diverticulosis, and diverticular abscess s/p surgery in the past admitted with intra abdominal abscess. Patient is s/p IR drain day 2. Plan: 1) Intra-abdominal abscess with questionable fistula to the sigmoid colon s/p IR drain - No growth on bcx, abdominal culture with gram neg jose. -on Ancef, diflucan and flagyl. - OR tomorrow - continue NS@75 - IR drain with feculent drainage. - npo past mn. 2) Normocytic anemia - s/p 2 units prbc this admission -h/h stable - continue po iron. 3) h/o CAD - continue asa, lipitor, and lopressor. - continue diovan for htn - Cleared by cardio. 4) Transaminitis-will continue to trend. 5) Hypokalemia - resolved 6) Vitamin D deficiency - will start 2ooo iu of vitamin d - continue po calcium - continue to monitor 7) h/o osteoporosis - continue alendronate qweekly 8) Dementia- continue aricept 9) DVT prophyalxis: lovenox and protonix. Patient, seen, examined, and case discussed with Dr Zuniga. <Aubrey Zuniga - Last Filed: 08/18/16 19:07> Objective - Vital Signs/Intake and Output Vital Signs (last 24 hours): Temp Pulse Resp BP Pulse Ox 95 F L 42 L 36 H 95/57 L 96 08/17/16 12:00 08/17/16 20:00 08/17/16 20:00 08/17/16 19:00 08/17/16 20:30 - Labs Labs: 08/17/16 05:00 08/17/16 05:00 PT 12.3 Seconds (9.9-11.8) H 08/15/16 14:50 INR 1.14 (0.93-1.08) H 08/15/16 14:50 APTT 34.8 Seconds (23.7-30.8) H 08/15/16 14:50 Attending/Attestation - Attestation I have personally seen and examined this patient.: Yes I have fully participated in the care of the patient.: Yes I have reviewed all pertinent clinical information, including history, physical exam and plan: Yes Notes (Text): 08/18/16 19:07 Medical record note made by the resident after discussion with my direction and input after the patient was personally seen and examined by me. I have reviewed the chart and agree that the record accurately reflects by personal performance of the history, physical exam, data review, and medical decision-making, in the course for the patient. I have also personally directed the plan of care.
[2016-08-05] MEDS: Pantoprazole 20 mg EC Tab PO SCH (09:44)
[2016-08-05] MEDS: Fluconazole IV 200mg/100 ml NS 100 ML IVPB SCH (09:45)
[2016-08-05] MEDS: Enoxaparin 30 mg Syringe SC SCH (09:47)
--- NOTE | 2016-08-05 09:55 | CP.PCM.PN ---
Subjective - Date & Time of Evaluation Date of Evaluation: 08/05/16 Time of Evaluation: 06:45 - Subjective Subjective: General Surgery Dr. Keita Pt S&E @bedside. NAEO. no complaints. tolerating CLD. IR drain 5cc output overnight Objective - Vital Signs/Intake and Output Vital Signs (last 24 hours): Temp Pulse Resp BP Pulse Ox 98.0 F 63 20 128/78 99 08/05/16 07:27 08/05/16 07:27 08/05/16 07:27 08/05/16 07:27 08/05/16 07:27 Intake and Output: 08/05/16 08/05/16 06:59 18:59 Intake Total 2280 Output Total 5 Balance 2275 - Medications Medications: Current Medications Acetaminophen (Tylenol 325mg Tab) 650 mg PO Q6H PRN PRN Reason: Fever >100.4 F Last Admin: 08/04/16 22:27 Dose: 650 mg Alendronate Sodium (Fosamax) 70 mg PO Q7D [facility] Last Admin: 07/31/16 10:32 Dose: 70 mg Aspirin (Ecotrin) 81 mg PO DAILY [facility] Last Admin: 08/04/16 09:55 Dose: 81 mg Atorvastatin Calcium (Lipitor) 40 mg PO DIN [facility] Last Admin: 08/04/16 17:51 Dose: 40 mg Calcium Carbonate (Oscal) 500 mg PO DAILY [facility] Last Admin: 08/04/16 09:55 Dose: 500 mg Cholecalciferol (Vitamin D) 2,000 iu PO DAILY [facility] Docusate Sodium (Colace) 100 mg PO TID [facility] Last Admin: 08/04/16 17:58 Dose: Not Given Donepezil HCl (Aricept) 10 mg PO HS [facility] Last Admin: 08/04/16 21:38 Dose: 10 mg Enoxaparin Sodium (Lovenox) 30 mg SC DAILY [facility] PRN Reason: Protocol Last Admin: 08/04/16 09:54 Dose: 30 mg Ferrous Sulfate (Feosol) 324 mg PO TID [facility] Last Admin: 08/04/16 17:52 Dose: 324 mg Metronidazole (Flagyl) 500 mg in 100 mls @ 100 mls/hr IVPB Q8 [facility] PRN Reason: Protocol Last Admin: 08/05/16 06:18 Dose: 100 mls/hr Sodium Chloride (Sodium Chloride 0.9%) 1,000 mls @ 75 mls/hr IV .[id number] [facility] Last Admin: 08/05/16 05:50 Dose: 75 mls/hr Cefazolin Sodium (Ancef 1gm In Ns) 1 gm in 100 mls @ 100 mls/hr IVPB Q8 [facility] PRN Reason: Protocol Last Admin: 08/05/16 05:24 Dose: 100 mls/hr Fluconazole (Diflucan Iv 200 Mg/100 Ml Ns) 100 mls @ 100 mls/hr IVPB DAILY [facility] PRN Reason: Protocol Last Admin: 08/04/16 09:50 Dose: 100 mls/hr Metoprolol Tartrate (Lopressor) 50 mg PO BID [facility] Last Admin: 08/04/16 17:52 Dose: 50 mg Morphine Sulfate (Morphine) 1 mg IVP Q4H PRN PRN Reason: Pain, moderate (4-7) Last Admin: 08/02/16 14:43 Dose: 1 mg Pantoprazole Sodium (Protonix Ec Tab) 20 mg PO ACB [facility] Last Admin: 08/04/16 14:35 Dose: 20 mg Valsartan (Diovan) 320 mg PO DAILY [facility] Last Admin: 08/04/16 09:55 Dose: 320 mg - Labs Labs: 08/05/16 06:30 08/05/16 06:30 PT 12.9 Seconds (9.9-11.8) H 07/30/16 16:30 INR 1.19 (0.93-1.08) H 07/30/16 16:30 APTT 28.7 Seconds (23.7-30.8) 07/30/16 16:30 - Constitutional Appears: Non-toxic, No Acute Distress - Head Exam Head Exam: NORMAL INSPECTION - Eye Exam Eye Exam: Normal appearance - ENT Exam ENT Exam: Mucous Membranes Moist - Respiratory Exam Respiratory Exam: NORMAL BREATHING PATTERN. absent: Accessory Muscle Use, Respiratory Distress - Cardiovascular Exam Cardiovascular Exam: absent: Bradycardia, Tachycardia - GI/Abdominal Exam GI & Abdominal Exam: Soft. absent: Distended, Tenderness Additional comments: IR drain in place thin, green fluid present dressing c/d/i - Extremities Exam Extremities Exam: Normal Inspection - Neurological Exam Neurological Exam: Alert, Awake - Psychiatric Exam Psychiatric exam: Normal Affect, Normal Mood - Skin Skin Exam: Dry, Normal Color, Warm Assessment and Plan - Assessment and Plan (Free Text) Assessment: 86 y/o F w/ LLQ intraabdominal abscess and colovesicular fistula - cont CLD - f/u GI recs - OR tentatively scheduled for Brad's procedure - will discuss options w/ family - cont current medical management Pt seen and discussed w/ Dr. Bossman Llanos DO PGY1
--- NOTE | 2016-08-05 12:07 | PN ---
DATE: 08/05/2016 Seen and examined at the bedside earlier today. No reports of nausea, vomiting. Does have some abdo beverly pain. No reports of acute overnight events. VITAL SIGNS: Temperature is 98, blood pressure 128/78, pulse 63, respirations 20, 99% on room air. LABORATORIES: WBC is 5.8, H and H is 10.9 and 34.6, platelets is 334. Sodium 135, K is 3.8, BUN is 2, creatinine is 0.4, total bilirubin is 0.5, AST 60, ALT 33, alk phos is 235. These are slightly el evated today. PHYSICAL EXAMINATION: HEENT: Sclera is anicteric. NECK: Supple. CARDIAC: S1, S2. LUNG SOUNDS: With decreased breath sounds, but good entry, no rales or wheeze. ABDOMEN: With bowel sounds, soft, no tenderness. She has the left lower quadrant drain in place. I t drained about 5 mL. EXTREMITIES: No edema. NEUROLOGIC: Awake and alert. ASSESSMENT: Intra-abdominal abscess/colovesical fistula, status post drainage of abscess. The patie nt does have a history of extensive diverticulosis of the sigmoid and descending colon. Other comorb idities is coronary artery disease, status post stent and hypertension. PLAN: The patient also positive Escherichia coli in her . She is on IV antibiotics, Flagyl, al so on Diflucan, on Ancef. Continue the PPI, on iron supplement, IV fluids for hydration, on Lovenox and aspirin. Continue clear liquid diet. Plans for surgical intervention tentatively on fo r Brad's procedure. The patient was seen and case discussed with Dr. Archuleta. Arina BRAR cc: [id number] TT: 08/05/2016 11:25:31 Confirmation # [id number] Dictation # [id number] en
--- NOTE | 2016-08-05 13:57 | PN ---
DATE: 08/05/2016 The patient is seen on the floor. There is fecal material draining from the drain, which connects up to the bowel according to Dr. Zaldivar's report. The patient had diverticulitis in the past and this w as drained. The note from Dr. Wolfe is received. I spoke to the granddaughter and the patient, kris sting an open operation colostomy and ureteral catheters. I do not think I will be able to reclose t his up safely. The white count is 5, hemoglobin 10.9, platelet count normal. Protime is somewhat no rmal. SMA-18 shows slight elevation of SGOT and alk phos. On 08/02, the ultrasound was normal. Dr. Wolfe's note is reviewed. Risks and benefits are explained. Sony Keita MD cc: [id number] TT: 08/05/2016 13:56:36 Confirmation # [id number] Dictation # [id number] sn
--- NOTE | 2016-08-05 18:29 | CP.PCM.PN ---
Subjective - Date & Time of Evaluation Date of Evaluation: 08/05/16 Time of Evaluation: 16:30 - Subjective Subjective: Infectious Disease Follow Up: August 05, 2016 85 yo female sent to [facility] from Dr. Keita's office after discovery of purulent drainage from left lower abdominal drain site. She has a history of hypertension, GI bleed, CAD with stents, anemia, and osteoporosis. Many of her hospitalizations last year were for GI bleed. 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 She is currently on ceftriaxone and Flagyl. This will cover most recurrences of E. coli. Taken to IR by Dr. Zaldivar on Friday. 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 IR drain is still showing fecal material. For OR Friday. E. coli in cultures of wound site. Yeast in urine cultures. Objective - Vital Signs/Intake and Output Vital Signs (last 24 hours): Temp Pulse Resp BP Pulse Ox 98.0 F 63 20 128/78 99 08/05/16 07:27 08/05/16 07:27 08/05/16 07:27 08/05/16 07:27 08/05/16 07:27 Intake and Output: 08/05/16 08/05/16 06:59 18:59 Intake Total 2280 600 Output Total 5 Balance 2275 600 - Medications Medications: Current Medications Acetaminophen (Tylenol 325mg Tab) 650 mg PO Q6H PRN PRN Reason: Fever >100.4 F Last Admin: 08/05/16 09:44 Dose: 650 mg Alendronate Sodium (Fosamax) 70 mg PO Q7D [facility] Last Admin: 07/31/16 10:32 Dose: 70 mg Aspirin (Ecotrin) 81 mg PO DAILY [facility] Last Admin: 08/05/16 14:12 Dose: Not Given Atorvastatin Calcium (Lipitor) 40 mg PO DIN [facility] Last Admin: 08/04/16 17:51 Dose: 40 mg Calcium Carbonate (Oscal) 500 mg PO DAILY [facility] Last Admin: 08/05/16 09:44 Dose: 500 mg Cholecalciferol (Vitamin D) 2,000 iu PO DAILY [facility] Last Admin: 08/05/16 14:12 Dose: 2,000 iu Docusate Sodium (Colace) 100 mg PO TID [facility] Last Admin: 08/05/16 14:11 Dose: 100 mg Donepezil HCl (Aricept) 10 mg PO HS [facility] Last Admin: 08/04/16 21:38 Dose: 10 mg Enoxaparin Sodium (Lovenox) 30 mg SC DAILY [facility] PRN Reason: Protocol Last Admin: 08/05/16 09:47 Dose: 30 mg Ferrous Sulfate (Feosol) 324 mg PO TID [facility] Last Admin: 08/05/16 14:12 Dose: 324 mg Metronidazole (Flagyl) 500 mg in 100 mls @ 100 mls/hr IVPB Q8 [facility] PRN Reason: Protocol Last Admin: 08/05/16 14:10 Dose: 100 mls/hr Sodium Chloride (Sodium Chloride 0.9%) 1,000 mls @ 75 mls/hr IV .[id number] [facility] Last Admin: 08/05/16 05:50 Dose: 75 mls/hr Cefazolin Sodium (Ancef 1gm In Ns) 1 gm in 100 mls @ 100 mls/hr IVPB Q8 [facility] PRN Reason: Protocol Last Admin: 08/05/16 14:10 Dose: 100 mls/hr Fluconazole (Diflucan Iv 200 Mg/100 Ml Ns) 100 mls @ 100 mls/hr IVPB DAILY [facility] PRN Reason: Protocol Last Admin: 08/05/16 09:45 Dose: 100 mls/hr Metoprolol Tartrate (Lopressor) 50 mg PO BID [facility] Last Admin: 08/05/16 09:44 Dose: 50 mg Morphine Sulfate (Morphine) 1 mg IVP Q4H PRN PRN Reason: Pain, moderate (4-7) Last Admin: 08/02/16 14:43 Dose: 1 mg Pantoprazole Sodium (Protonix Ec Tab) 20 mg PO ACB [facility] Last Admin: 08/05/16 09:44 Dose: 20 mg Valsartan (Diovan) 320 mg PO DAILY [facility] Last Admin: 08/05/16 09:44 Dose: 320 mg - Labs Labs: 08/05/16 06:30 08/05/16 06:30 PT 12.9 Seconds (9.9-11.8) H 07/30/16 16:30 INR 1.19 (0.93-1.08) H 07/30/16 16:30 APTT 28.7 Seconds (23.7-30.8) 07/30/16 16:30 - Constitutional Appears: Non-toxic, No Acute Distress, Chronically Ill - Head Exam Head Exam: ATRAUMATIC, NORMOCEPHALIC - Eye Exam Eye Exam: EOMI, PERRL Pupil Exam: NORMAL ACCOMODATION, PERRL - ENT Exam ENT Exam: Mucous Membranes Moist, Normal External Ear Exam, TM's Normal Bilaterally - Neck Exam Neck Exam: Full ROM, Normal Inspection - Respiratory Exam Respiratory Exam: Clear to Ausculation Bilateral, NORMAL BREATHING PATTERN. absent: Rales, Rhonchi, Wheezes - Cardiovascular Exam Cardiovascular Exam: REGULAR RHYTHM, RRR, +S1, +S2 - GI/Abdominal Exam GI & Abdominal Exam: Soft, Normal Bowel Sounds. absent: Distended, Tenderness Additional comments: IR drain in place. - Extremities Exam Extremities Exam: Full ROM, Normal Inspection - Neurological Exam Neurological Exam: Alert, Awake, CN II-XII Intact, Oriented x3 - Psychiatric Exam Psychiatric exam: Normal Affect, Normal Mood - Skin Skin Exam: Intact, Normal Color Assessment and Plan - Assessment and Plan (Free Text) Assessment: 86 yo female with intra-abdominal abscess presenting with drainage of pus. Taken by IR for drain placement. Spoke with Dr. Zaldivar in detail regarding case. He fears formation of fistula at this time. On Rocephin and Metronidazole. Last hospitalization showed VRE and E. coli growth. Supportive care with low tolerance for switching antibiotics to one such as meropenem. Current culture is showing E. coli that is sensitive to Rocephin and Ancef. On Ancef now. On Diflucan to cover yeast in the urine. New cultures taken. Supportive care. For OR tomorrow now. Thank you for allowing me to participate in the care of the patient, we will follow with you.
--- NOTE | 2016-08-05 20:17 | CARD ---
APPROVED REPORT EKG Measurement Heart [id number] <Conclusion> Sinus bradycardia Left axis deviation Cannot rule out Anteroseptal infarct, age undetermined Abnormal ECG
--- NOTE | 2016-08-06 00:40 | PN ---
DATE: 08/05/2016 ADDENDUM: SUBJECTIVE: The patient was seen and evaluated earlier today. This is an addendum to the GI progres s report dictated by Arina Guerrero NP. The patient was discussed with Dr. Keita. The patient was s een earlier. At that time, patient was scheduled to go for OR. No history of colovesical fistula in the past. The patient does have diverticular perforation and abscess, status post drainage. PLAN: Will continue to closely follow up her care. Thank you very much for allowing us to participate in the care of the patient. Long Archuleta MD cc: [id number] TT: 08/06/2016 00:39:45 Confirmation # [id number] Dictation # [id number]
[2016-08-06] MEDS: ceFAZolin 1 gm in NS 1 GM/100 ML BAG IVPB SCH ×3 (05:55→21:23)
[2016-08-06 06:42] LABS: ADD MANUAL DIFF? NO
[2016-08-06] MEDS: metroNIDAZOLE IV 500 mg/100 ml 500 MG/100 ML BAG IVPB SCH ×3 (07:38→22:00)
[2016-08-06 07:44] LABS: BASO # 0.02 K/mm3 (0.0-2.0); BASO % 0.2 % (0.0-3.0); EOS # 0.1 (0.0-0.7); EOS % 0.9 % (1.5-5.0); GRAN # 6.01 (1.4-6.5); GRAN % 73.9 % (50.0-68.0); HEMATOCRIT 36.6 % (36.0-48.0); LYMPH # 1.4 (1.2-3.4); LYMPH % 17.6 % (22.0-35.0); MEAN CORPUSCULAR HEMOGLOBIN 29.1 pg (25.0-35.0); MEAN PLATELET VOLUME 9.7 fl (7.0-11.0); MONO # 0.6 (0.1-0.6); MONO % 7.4 % (1.0-6.0); PLATELET COUNT 365 10^3/uL (120.0-450.0); RED CELL DISTRIBUTION WIDTH 18.3 % (11.5-14.5); WHITE BLOOD COUNT 8.1 10^3/ul (4.5-11.0)
[2016-08-06] MEDS ORDERED: Midazolam 2 MG/2 ML VIAL ONE (08:08)
[2016-08-06] MEDS ORDERED: Propofol 10 mg/ml Inj (20 ML) ONE (08:08)
[2016-08-06] MEDS ORDERED: Oxychlorosene Topical 2 gm Packet TOP ONE (08:15)
[2016-08-06 08:24] LABS: INR 1.36 (0.93-1.08); PARTIAL THROMBOPLASTIN TIME 25.8 Seconds (23.7-30.8)
[2016-08-06] MEDS ORDERED: Sodium Chloride 0.9% 1,000 ML IV SCH ×2 (08:30→12:30)
[2016-08-06] MEDS ORDERED: cefTRIAXone (Rocephin) 1 gm Inj ONE ×2 (08:55→08:57)
[2016-08-06 08:58] LABS: ALB/GLOB RATIO 0.7 (1.1-1.8); ALKALINE PHOSPHATASE 276 U/L (38-133); ALT/SGPT 31 U/L (7-56); AST/SGOT 79 U/L (15-39); BILIRUBIN,TOTAL 0.5 mg/dL (0.2-1.3); BLOOD UREA NITROGEN 3 mg/dL (7-21); CALCIUM 7.9 mg/dL (8.4-10.5); CARBON DIOXIDE 18 mmol/L (21-33); CHLORIDE 111 mmol/L (98-107); GFR AFRICAN-AMERICAN > 60; GLUCOSE,RANDOM 74 mg/dL (70-110); POTASSIUM 3.6 mmol/L (3.6-5.0); TOTAL PROTEIN 5.5 g/dL (5.8-8.3)
[2016-08-06 09:13] LABS: SODIUM 136 mmol/L (132-148)
--- NOTE | 2016-08-06 09:43 | CP.PCM.PN ---
<Jess Wilkerson - Last Filed: 08/06/16 16:50> Subjective - Date & Time of Evaluation Date of Evaluation: 08/06/16 Time of Evaluation: 08:05 - Subjective Subjective: Medicine progress note for Dr Diaz and Dr Zuniga. No acute events overnight. Patient worried about the upcoming surgery, all questions were answered. Patient otherwise has no complaints. Patient denies cp , sob, fever or chills, n/v/d. IR drain still draining feculent. Objective - Vital Signs/Intake and Output Vital Signs (last 24 hours): Temp Pulse Resp BP Pulse Ox 98.5 F 65 18 173/78 H 100 08/06/16 07:50 08/06/16 07:50 08/06/16 07:50 08/06/16 07:50 08/06/16 07:50 Intake and Output: 08/06/16 08/06/16 06:59 18:59 Intake Total 240 Output Total 12 Balance 228 - Medications Medications: Current Medications Acetaminophen (Tylenol 325mg Tab) 650 mg PO Q6H PRN PRN Reason: Fever >100.4 F Last Admin: 08/05/16 20:11 Dose: 650 mg Alendronate Sodium (Fosamax) 70 mg PO Q7D [facility] Last Admin: 07/31/16 10:32 Dose: 70 mg Aspirin (Ecotrin) 81 mg PO DAILY [facility] Last Admin: 08/05/16 14:12 Dose: Not Given Atorvastatin Calcium (Lipitor) 40 mg PO DIN [facility] Last Admin: 08/05/16 19:27 Dose: 40 mg Calcium Carbonate (Oscal) 500 mg PO DAILY [facility] Last Admin: 08/05/16 09:44 Dose: 500 mg Cholecalciferol (Vitamin D) 2,000 iu PO DAILY [facility] Last Admin: 08/05/16 14:12 Dose: 2,000 iu Docusate Sodium (Colace) 100 mg PO TID [facility] Last Admin: 08/05/16 19:26 Dose: 100 mg Donepezil HCl (Aricept) 10 mg PO HS [facility] Last Admin: 08/05/16 21:46 Dose: 10 mg Enoxaparin Sodium (Lovenox) 30 mg SC DAILY [facility] PRN Reason: Protocol Last Admin: 08/05/16 09:47 Dose: 30 mg Ferrous Sulfate (Feosol) 324 mg PO TID [facility] Last Admin: 08/05/16 19:26 Dose: 324 mg Metronidazole (Flagyl) 500 mg in 100 mls @ 100 mls/hr IVPB Q8 [facility] PRN Reason: Protocol Last Admin: 08/06/16 07:38 Dose: 100 mls/hr Cefazolin Sodium (Ancef 1gm In Ns) 1 gm in 100 mls @ 100 mls/hr IVPB Q8 [facility] PRN Reason: Protocol Last Admin: 08/06/16 05:55 Dose: 100 mls/hr Fluconazole (Diflucan Iv 200 Mg/100 Ml Ns) 100 mls @ 100 mls/hr IVPB DAILY [facility] PRN Reason: Protocol Last Admin: 08/05/16 09:45 Dose: 100 mls/hr Sodium Chloride (Sodium Chloride 0.9%) 1,000 mls @ 100 mls/hr IV .Q10H [facility] Metoprolol Tartrate (Lopressor) 50 mg PO BID [facility] Last Admin: 08/06/16 06:34 Dose: 50 mg Morphine Sulfate (Morphine) 1 mg IVP Q4H PRN PRN Reason: Pain, moderate (4-7) Last Admin: 08/02/16 14:43 Dose: 1 mg Pantoprazole Sodium (Protonix Ec Tab) 20 mg PO ACB [facility] Last Admin: 08/05/16 09:44 Dose: 20 mg Valsartan (Diovan) 320 mg PO DAILY [facility] Last Admin: 08/05/16 09:44 Dose: 320 mg - Labs Labs: 08/06/16 06:15 08/06/16 06:15 PT 14.7 Seconds (9.9-11.8) H 08/06/16 07:00 INR 1.36 (0.93-1.08) H 08/06/16 07:00 APTT 25.8 Seconds (23.7-30.8) 08/06/16 07:00 - Constitutional Appears: No Acute Distress, Cachectic, Chronically Ill - Head Exam Head Exam: ATRAUMATIC, NORMAL INSPECTION, NORMOCEPHALIC - Eye Exam Eye Exam: Normal appearance, PERRL. absent: Scleral icterus - ENT Exam ENT Exam: Mucous Membranes Moist - Neck Exam Neck Exam: Normal Inspection - Respiratory Exam Respiratory Exam: Clear to Ausculation Bilateral, NORMAL BREATHING PATTERN. absent: Rales, Rhonchi, Wheezes, Respiratory Distress, Stridor - Cardiovascular Exam Cardiovascular Exam: REGULAR RHYTHM, +S1 - GI/Abdominal Exam GI & Abdominal Exam: Soft, Normal Bowel Sounds. absent: Distended, Firm, Guarding, Rigid, Tenderness - Extremities Exam Extremities Exam: Pedal Edema - Back Exam Back Exam: NORMAL INSPECTION - Neurological Exam Neurological Exam: Alert, Awake, Oriented x3 - Psychiatric Exam Psychiatric exam: Normal Affect, Normal Mood - Skin Skin Exam: Dry, Normal Color, Warm Assessment and Plan - Assessment and Plan (Free Text) Assessment: Patient is an 86 y/o with PMH of htn, CAD s/p stents, CHF, osteoporosis, microcytic anemia, diverticulosis, and diverticular abscess s/p surgery in the past admitted with intra abdominal abscess. s/p IR drain. Going to OR today. Plan: 1) Intra-abdominal abscess with questionable fistula to the sigmoid colon s/p IR drain - on Ancef, diflucan and flagyl. - scheduled for OR today - continue NS@75 - IR drain with feculent drainage. - npo 2) Normocytic anemia - s/p 2 units prbc this admission - h/h stable - continue po iron. 3) h/o CAD - continue asa, Lipitor, and Lopressor. - continue diovan for htn 4) Transaminitis-will continue to trend. 5) Hypokalemia - resolved 6) Vitamin D deficiency - continue 2ooo iu of vitamin d - continue po calcium 7) h/o osteoporosis - continue alendronate qweekly 8) Dementia- continue aricept 9) DVT prophyalxis: lovenox and protonix. 10) Dispo- pending post op. Patient, seen, examined, and case discussed with Dr Zuniga. <Aubrey Zuniga - Last Filed: 08/28/16 14:57> Objective - Vital Signs/Intake and Output Vital Signs (last 24 hours): Temp Pulse Resp BP Pulse Ox 95 F L 42 L 36 H 95/57 L 96 08/17/16 12:00 08/17/16 20:00 08/17/16 20:00 08/17/16 19:00 08/17/16 20:30 - Labs Labs: 08/17/16 05:00 08/17/16 05:00 PT 12.3 Seconds (9.9-11.8) H 08/15/16 14:50 INR 1.14 (0.93-1.08) H 08/15/16 14:50 APTT 34.8 Seconds (23.7-30.8) H 08/15/16 14:50 Attending/Attestation - Attestation I have personally seen and examined this patient.: Yes I have fully participated in the care of the patient.: Yes I have reviewed all pertinent clinical information, including history, physical exam and plan: Yes Notes (Text): 08/28/16 14:57 Medical record note made by the resident after discussion with my direction and input after the patient was personally seen and examined by me. I have reviewed the chart and agree that the record accurately reflects by personal performance of the history, physical exam, data review, and medical decision-making, in the course for the patient. I have also personally directed the plan of care.
[2016-08-06] MEDS ORDERED: Liquid Adhesive TOP ONE (10:38)
--- NOTE | 2016-08-06 10:40 | OP ---
PROCEDURE DATE: 08/06/2016 PREOPERATIVE DIAGNOSES: Intra-abdominal abscess, possible colon cancer. POSTOPERATIVE DIAGNOSIS: Unknown. PROCEDURE: Cystoscopy, insertion of bilateral ureteral catheters. ATTENDING SURGEON: Khai Duff MD ANESTHESIA: General. SPECIMENS: There were none. DRAINS: An 18-Surinamese Mauro Lozano catheter and 5-Surinamese ureteral catheters. COMPLICATIONS: There were none. OPERATIVE FINDINGS: After informed consent was obtained, the patient was taken to the operating room and placed on the operating room table and anesthesia was administered. The patient was then placed in the dorsal lithotomy position and prepped and draped in usual sterile fashion. The patient is sc heduled to have a colon resection and Brad's procedure by Dr. Sony Keita of general surgery w ho requested insertion of ureteral catheters to identify the ureters during the colon dissection. At this point, a 22-Surinamese cystoscope was passed into the patient's bladder and a full survey inspectio n was performed. There were no stones, papillary tumors or foreign bodies of the bladder noted. Bot h ureteral orifices were identified and appeared within normal limits. At this point, a 5-Surinamese julian ve-tipped ureteral catheter was introduced through the cystoscope and guided into the left ureteral o rifice. The ureteral catheter was advanced proximally under direct vision until it was in at the kobe ropriate depth. At this point, the bladder was drained, the cystoscope was removed while leaving the ureteral catheter in place. The cystoscope was then repassed. A second 5-Surinamese olive-tipped anish ter was obtained and passed through the cystoscope and guided into the right ureteral orifice. The u reteral catheter was advanced under direct vision until it was in at the appropriate depth. When bot h ureteral catheters were in place, the bladder was drained, the cystoscope was removed, leaving the ureteral catheters in place in the ureters. An 18-Surinamese Mauro Lozano catheter was then passed and placed to straight drainage. The ureteral catheters were then secured into the ports of the Mauro Lozano catheter. The patient tolerated the procedure well. She was left in the operating room under anesthesia in order to undergo the colon resection by Dr. Keita. Please refer to Dr. Keita's dic tation for the remainder of the operative report. Khai Duff MD cc: [phone] TT: 08/06/2016 10:39:58 rn
[2016-08-06] MEDS ORDERED: Succinylcholine 200 mg/10 ml Inj IV ONE (12:06)
[2016-08-06] MEDS ORDERED: Phenylephrine 10 mg/ml Inj ONE (12:06)
[2016-08-06] MEDS ORDERED: ePHEDrine 50 mg/ml Inj ONE (12:06)
[2016-08-06] MEDS ORDERED: Rocuronium 10 mg/ml (5 ml) ONE (12:06)
[2016-08-06] MEDS ORDERED: HYDROmorphone 0.5 mg/0.5 ml ISec IVP PRN ×3 (12:19→12:27)
[2016-08-06] MEDS ORDERED: Labetalol 5 mg/ml Inj 20ML IVP ONE (12:19)
--- NOTE | 2016-08-06 12:31 | PCM.SURG1 ---
Surgeon's Initial Post Op Note - Surgeon's Notes Surgeon: Dr. Keita Concrete Rod Buster: Dr. Saavedra PGY-2, Dr. Llanos PGY-1, June Type of Anesthesia: General Endo Anesthesia Administered By: Dr. 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
[2016-08-06] MEDS ORDERED: Labetalol 5 mg/ml Inj 20ML ONE (12:42)
[2016-08-06] MEDS ORDERED: Labetalol 5 mg/ml Inj 20ML IV ONE (12:45)
[2016-08-06] MEDS ORDERED: HYDROmorphone 0.5 mg/0.5 ml ISec ONE ×3 (13:15→14:59)
[2016-08-06] MEDS ORDERED: HYDROmorphone 0.5 mg/0.5 ml ISec IVP ONE ×3 (13:15→15:00)
[2016-08-06] MEDS ORDERED: metroNIDAZOLE IV 500 mg/100 ml 500 MG/100 ML BAG ONE (15:17)
[2016-08-06] MEDS: Fluconazole IV 200mg/100 ml NS 100 ML IVPB SCH (16:20)
--- NOTE | 2016-08-06 16:27 | CP.PCM.CON ---
<Mariel Rodas - Last Filed: 08/06/16 17:55> History of Present Illness - History of Present Illness History of Present Illness: Critical care consult note for Dr. Deepthi Rodas, PGY-1 Pt S & E at bedside. 86F w/PMH sig for HTN, CAD s/p stents, CHF, HLD, Alzeheimer's dementia and Diverticulitis w/abscess s/p IR drain placement on 07/31 POD#0 s/p Exploratory laparotomy with sigmoid resection, washout of intra-abdominal abscess, mobilization of the splenic flexure, creation of ostomy and mucous fistula creation w/B/L ureteral stent placement as per urology. Pt seen and evaluated in PACU. Pt reports some "soreness" of abdominal area. ROS somewhat limited by dementia- pt answering only some questions. Admits to B/ L LE pain (chronic), back pain. Denies N/V/F/C, SOB, CP, neck pain. Per PACU nurse- pt w/some hypotension s/p Dilaudid administration, UOP 200cc during OR case (200cc/3.5hr), UOP since move to PACU 37cc/4hrs - pt currently getting 500cc of NS. Pt w/B/L Lower quadrant Fortino drains w/250cc serosanguinous output over 4 hrs. PMH: HTN, CAD s/p stents, CHF, HLD, Alzeheimer's dementia and Diverticulitis w/ abscess s/p IR drain placement on 07/31 PSH: Hysterectomy, cholecystectomy, coronary stents All: NKA SH: Denies ETOH, tobacco, illicit drug use PMD: Dedousis Review of Systems - Review of Systems Systems not reviewed;Unavailable: Dementia All systems: reviewed and no additional remarkable complaints except - Constitutional Constitutional: absent: Chills, Fever - Cardiovascular Cardiovascular: absent: Chest Pain - Gastrointestinal Gastrointestinal: absent: Nausea, Vomiting Past Patient History - Infectious Disease Hx of Infectious Diseases: None - Tetanus Immunizations Tetanus Immunization: Unknown - Past Medical History & Family History Past Medical History?: Yes - Past Social History Smoking Status: Never Smoked - CARDIAC Hx Congestive Heart Failure: Yes Hx Hypertension: Yes - PULMONARY Hx Respiratory Disorders: No - NEUROLOGICAL Hx Neurological Disorder: No - HEENT Hx HEENT Problems: Yes Hx Cataracts: Yes (left eye no sx) - RENAL Hx Chronic Kidney Disease: Yes Hx Kidney Stones: Yes - ENDOCRINE/METABOLIC Hx Endocrine Disorders: No - HEMATOLOGICAL/ONCOLOGICAL Hx Blood Transfusions: No Hx Blood Transfusion Reaction: No - INTEGUMENTARY Hx Dermatological Problems: Yes (BILATERAL LEG EDEMA MAINLY TO FEET MORE TO LEFT.) Other/Comment: ble skin tight/edema - MUSCULOSKELETAL/RHEUMATOLOGICAL Hx Musculoskeletal Disorders: No Hx Falls: No - GASTROINTESTINAL Hx Gastrointestinal Disorders: Yes (DIVERTICULOSIS,HEMORRHOID,GI BLEED,RECTAL BLEED) Hx Gall Bladder Disease: Yes (gallstones) Hx Gastroesophageal Reflux: Yes Other/Comment: rectal bleed - GENITOURINARY/GYNECOLOGICAL Hx Genitourinary Disorders: Yes Hx Urinary Tract Infection: Yes - PSYCHIATRIC Hx Psychophysiologic Disorder: No Hx Substance Use: No - SURGICAL HISTORY Hx Surgeries: Yes - ANESTHESIA Hx Anesthesia Reactions: Yes Hx Malignant Hyperthermia: Yes Meds Allergies/Adverse Reactions: Allergies Allergy/AdvReac Type Severity Reaction Status Date / Time No Known Allergies Allergy Verified 07/30/16 15:58 - Medications Medications: Current Medications Acetaminophen (Tylenol 325mg Tab) 650 mg PO Q6H PRN PRN Reason: Fever >100.4 F Last Admin: 08/05/16 20:11 Dose: 650 mg Alendronate Sodium (Fosamax) 70 mg PO Q7D [facility] Last Admin: 07/31/16 10:32 Dose: 70 mg Aspirin (Ecotrin) 81 mg PO DAILY [facility] Last Admin: 08/05/16 14:12 Dose: Not Given Atorvastatin Calcium (Lipitor) 40 mg PO DIN [facility] Last Admin: 08/05/16 19:27 Dose: 40 mg Calcium Carbonate (Oscal) 500 mg PO DAILY [facility] Last Admin: 08/05/16 09:44 Dose: 500 mg Cholecalciferol (Vitamin D) 2,000 iu PO DAILY [facility] Last Admin: 08/05/16 14:12 Dose: 2,000 iu Docusate Sodium (Colace) 100 mg PO TID [facility] Last Admin: 08/05/16 19:26 Dose: 100 mg Donepezil HCl (Aricept) 10 mg PO HS [facility] Last Admin: 08/05/16 21:46 Dose: 10 mg Enoxaparin Sodium (Lovenox) 30 mg SC DAILY [facility] PRN Reason: Protocol Last Admin: 08/05/16 09:47 Dose: 30 mg Ferrous Sulfate (Feosol) 324 mg PO TID [facility] Last Admin: 08/05/16 19:26 Dose: 324 mg Hydromorphone HCl (Dilaudid) 0.5 mg IVP Q6H PRN PRN Reason: Pain, moderate (4-7) Hydromorphone HCl (Dilaudid) 0.5 mg IVP Q15M PRN PRN Reason: Pain, moderate (4-7) Metronidazole (Flagyl) 500 mg in 100 mls @ 100 mls/hr IVPB Q8 [facility] PRN Reason: Protocol Last Admin: 08/06/16 15:24 Dose: 100 mls/hr Cefazolin Sodium (Ancef 1gm In Ns) 1 gm in 100 mls @ 100 mls/hr IVPB Q8 [facility] PRN Reason: Protocol Last Admin: 08/06/16 16:00 Dose: 100 mls/hr Fluconazole (Diflucan Iv 200 Mg/100 Ml Ns) 100 mls @ 100 mls/hr IVPB DAILY [facility] PRN Reason: Protocol Last Admin: 08/06/16 16:20 Dose: 100 mls/hr Sodium Chloride (Sodium Chloride 0.9%) 1,000 mls @ 100 mls/hr IV .Q10H [facility] Metoprolol Tartrate (Lopressor) 50 mg PO BID [facility] Last Admin: 08/06/16 06:34 Dose: 50 mg Morphine Sulfate (Morphine) 1 mg IVP Q4H PRN PRN Reason: Pain, moderate (4-7) Last Admin: 08/02/16 14:43 Dose: 1 mg Ondansetron HCl (Zofran Inj) 4 mg IVP ONCE PRN PRN Reason: Nausea/Vomiting Ondansetron HCl (Zofran Inj) 4 mg IVP Q6 PRN PRN Reason: Nausea/Vomiting Pantoprazole Sodium (Protonix Ec Tab) 20 mg PO ACB [facility] Last Admin: 08/05/16 09:44 Dose: 20 mg Valsartan (Diovan) 320 mg PO DAILY [facility] Last Admin: 08/05/16 09:44 Dose: 320 mg Physical Exam - Constitutional Appears: Non-toxic, No Acute Distress - Head Exam Head Exam: ATRAUMATIC, NORMAL INSPECTION, NORMOCEPHALIC - Eye Exam Eye Exam: EOMI, Normal appearance, PERRL Pupil Exam: NORMAL ACCOMODATION, PERRL - ENT Exam ENT Exam: Mucous Membranes Moist, Normal Exam - Neck Exam Neck exam: Negative for: Normal Inspection (Left sided PIV in neck) - Respiratory Exam Respiratory Exam: NORMAL BREATHING PATTERN. absent: Chest Wall Tenderness, Clear to Auscultation Bilateral (B/L coarse breath sounds), Rales, Rhonchi, Wheezes, Respiratory Distress - Cardiovascular Exam Cardiovascular Exam: REGULAR RHYTHM, +S1, +S2 - GI/Abdominal Exam GI & Abdominal Exam: Hypoactive Bowel Sounds, Soft, Tenderness (minimal, along incision sites). absent: Distended, Firm, Guarding, Rebound Additional comments: Left ostomy bag in place, stoma is pink, non bloody, no output. Midline abdominal incision with dressing in place- C/D/I. B/L lower quadrants with Fortino drains in place, ~10 cc in Left drain-serosanginuous output, ~40cc in Right drain- serosanguinous output. Dressings over drain insertion sites C/D/I - Extremities Exam Extremities exam: Positive for: normal inspection, pedal edema (1+, non pitting edema B/L). Negative for: calf tenderness, full ROM - Neurological Exam Additional comments: AOx 1 (self), speech is slow - Psychiatric Exam Psychiatric exam: Normal Affect, Normal Mood - Skin Skin Exam: Dry, Intact, Normal Color, Warm Results - Vital Signs Recent Vital Signs: Last Vital Signs Temp 98.8 F 08/06/16 16:00 Pulse 70 08/06/16 16:00 Resp 18 08/06/16 16:00 BP 101/56 L 08/06/16 16:00 Pulse Ox 100 08/06/16 16:00 - Labs Result Diagrams: 08/06/16 06:15 08/06/16 06:15 Labs: Laboratory Results - last 24 hr 08/05/16 08/06/16 08/06/16 14:00 06:15 06:15 WBC 8.1 D RBC 4.02 Hgb 11.7 L Hct 36.6 MCV 91.0 MCH 29.1 MCHC 32.0 RDW 18.3 H Plt Count 365 MPV 9.7 Gran % 73.9 H Lymph % (Auto) 17.6 L Fleming % (Auto) 7.4 H Eos % (Auto) 0.9 L Baso % (Auto) 0.2 Gran # 6.01 Lymph # 1.4 Fleming # 0.6 Eos # 0.1 Baso # 0.02 PT INR APTT Sodium 136 Potassium 3.6 Chloride 111 H Carbon Dioxide 18 L Anion Gap 11 BUN 3 L Creatinine 0.4 L Est GFR ( Amer) > 60 Est GFR (Non-Af Amer) > 60 Random Glucose 74 Calcium 7.9 L Total Bilirubin 0.5 AST 79 H ALT 31 Alkaline Phosphatase 276 H Total Protein 5.5 L Albumin 2.3 L Globulin 3.2 Albumin/Globulin Ratio 0.7 L Crossmatch See Detail 08/06/16 07:00 WBC RBC Hgb Hct MCV MCH MCHC RDW Plt Count MPV Gran % Lymph % (Auto) Fleming % (Auto) Eos % (Auto) Baso % (Auto) Gran # Lymph # Fleming # Eos # Baso # PT 14.7 H INR 1.36 H APTT 25.8 Sodium Potassium Chloride Carbon Dioxide Anion Gap BUN Creatinine Est GFR ( Amer) Est GFR (Non-Af Amer) Random Glucose Calcium Total Bilirubin AST ALT Alkaline Phosphatase Total Protein Albumin Globulin Albumin/Globulin Ratio Crossmatch Assessment & Plan - Assessment and Plan (Free Text) Assessment: 86F w/PMH sig for HTN, CAD s/p stents, CHF, HLD, Alzeheimer's dementia and Diverticulitis w/abscess s/p IR drain placement on 07/31 POD#0 s/p Exploratory laparotomy with sigmoid resection, washout of intra-abdominal abscess, mobilization of the splenic flexure, creation of ostomy and mucous fistula creation w/B/L ureteral stent placement as per urology. Pt admitted to ICU for monitoring post op. Pt currently stable, VS WNL. Poor UOP. Will need continued IVF. Plan: Neuro Alert Awake AOx1 Hx Alzehiemer's dementia- answering some questions Cont home meds: Aricept Pain regimen: Dilaudid 0.5mg Q6H PRN, Tylenol 650mg Q6H PRN (held for OR) Stable CVS Hx CAD, HR in 70's BP 101/56 Cont home meds: ASA, Lopressor, Diovan Lipitor held for OR Monitor VS Cardio following Pulm Sat 100% on 3L O2 via NC Target SaO2 >94% Encourage IS use Chest PT Monitor GI Zofran PRN Protonix NPO for OR today Diet to be advanced as per surgery Will continue Colace when diet advanced or as per surgery GI following Nephro NS@100 Electrolytes WNL BUN 3 Cr 0.4 Monitor UOP Keep Cote in place Strict I/O's Target euvolemia Cote in place Will keep cote to monitor I/Os Strict I/Os UOP 37cc/4 hrs post op S/p B/L ureteral stent placement Endo BS 73 Target euglycemia as per NICE sugar trial Cont home med: Fosamax, Oscal, Vitamin D when diet advanced or as per surgery ID Afebrile No leukocytosis Fluid cxr neg for growth No AFB - neg mycobacterial cxr Fungal cxr neg Abscess cxr w/E Coli Cont Ancef 1gm Q8H Cont Fluconazole 200mg QD Cont Flagyl 500mg Q8H Target normothermia ID following Heme Hgb 11.7 from 10.9 Hct 36.6 from 34.6 Plts 365 Typed and screened for OR Cont home med: Feosol Monitor Fortino drain output Monitor for bleeding MSK Baseline uses WC at home Deconditioned Monitor for skin break down PT OOBTC w/assistance Drainage changes as per surgery GI/DVT ppx Lovenox held post op due to high risk for bleeding, will restart when cleared by surgery Protonix SCDs Knee AE Hose Dispo Monitor post op Monitor for bleeding Monitor drain output VS as per ICU protocol Post op mgmt as per surgery Cote to be kept in place DW attending - Date & Time Date: 08/06/16 Time: 15:50 <Beau Castro - Last Filed: 08/06/16 18:40> Meds - Medications Medications: Current Medications Acetaminophen (Tylenol 325mg Tab) 650 mg PO Q6H PRN PRN Reason: Fever >100.4 F Last Admin: 08/05/16 20:11 Dose: 650 mg Alendronate Sodium (Fosamax) 70 mg PO Q7D [facility] Last Admin: 07/31/16 10:32 Dose: 70 mg Aspirin (Ecotrin) 81 mg PO DAILY [facility] Last Admin: 08/05/16 14:12 Dose: Not Given Atorvastatin Calcium (Lipitor) 40 mg PO DIN [facility] Last Admin: 08/05/16 19:27 Dose: 40 mg Calcium Carbonate (Oscal) 500 mg PO DAILY [facility] Last Admin: 08/05/16 09:44 Dose: 500 mg Cholecalciferol (Vitamin D) 2,000 iu PO DAILY [facility] Last Admin: 08/06/16 17:28 Dose: Not Given Docusate Sodium (Colace) 100 mg PO TID [facility] Last Admin: 08/05/16 19:26 Dose: 100 mg Donepezil HCl (Aricept) 10 mg PO HS [facility] Last Admin: 08/05/16 21:46 Dose: 10 mg Enoxaparin Sodium (Lovenox) 30 mg SC DAILY [facility] PRN Reason: Protocol Last Admin: 08/05/16 09:47 Dose: 30 mg Ferrous Sulfate (Feosol) 324 mg PO TID [facility] Last Admin: 08/06/16 17:25 Dose: Not Given Hydromorphone HCl (Dilaudid) 0.5 mg IVP Q6H PRN PRN Reason: Pain, moderate (4-7) Hydromorphone HCl (Dilaudid) 0.5 mg IVP Q15M PRN PRN Reason: Pain, moderate (4-7) Metronidazole (Flagyl) 500 mg in 100 mls @ 100 mls/hr IVPB Q8 [facility] PRN Reason: Protocol Last Admin: 08/06/16 15:24 Dose: 100 mls/hr Cefazolin Sodium (Ancef 1gm In Ns) 1 gm in 100 mls @ 100 mls/hr IVPB Q8 [facility] PRN Reason: Protocol Last Admin: 08/06/16 16:00 Dose: 100 mls/hr Fluconazole (Diflucan Iv 200 Mg/100 Ml Ns) 100 mls @ 100 mls/hr IVPB DAILY [facility] PRN Reason: Protocol Last Admin: 08/06/16 16:20 Dose: 100 mls/hr Sodium Chloride (Sodium Chloride 0.9%) 1,000 mls @ 100 mls/hr IV .Q10H [facility] Last Admin: 08/06/16 17:26 Dose: 100 mls/hr Metoprolol Tartrate (Lopressor) 50 mg PO BID [facility] Last Admin: 08/06/16 17:26 Dose: Not Given Morphine Sulfate (Morphine) 1 mg IVP Q4H PRN PRN Reason: Pain, moderate (4-7) Last Admin: 08/02/16 14:43 Dose: 1 mg Ondansetron HCl (Zofran Inj) 4 mg IVP ONCE PRN PRN Reason: Nausea/Vomiting Ondansetron HCl (Zofran Inj) 4 mg IVP Q6 PRN PRN Reason: Nausea/Vomiting Pantoprazole Sodium (Protonix Ec Tab) 20 mg PO ACB [facility] Last Admin: 08/05/16 09:44 Dose: 20 mg Valsartan (Diovan) 320 mg PO DAILY [facility] Last Admin: 08/05/16 09:44 Dose: 320 mg Results - Vital Signs Recent Vital Signs: Last Vital Signs Temp 97.4 F L 08/06/16 17:36 Pulse 72 08/06/16 18:30 Resp 13 08/06/16 18:30 BP 96/63 L 08/06/16 18:30 Pulse Ox 100 08/06/16 18:30 - Labs Result Diagrams: 08/06/16 06:15 08/06/16 06:15 Labs: Laboratory Results - last 24 hr 08/05/16 08/06/16 08/06/16 14:00 06:15 06:15 WBC 8.1 D RBC 4.02 Hgb 11.7 L Hct 36.6 MCV 91.0 MCH 29.1 MCHC 32.0 RDW 18.3 H Plt Count 365 MPV 9.7 Gran % 73.9 H Lymph % (Auto) 17.6 L Fleming % (Auto) 7.4 H Eos % (Auto) 0.9 L Baso % (Auto) 0.2 Gran # 6.01 Lymph # 1.4 Fleming # 0.6 Eos # 0.1 Baso # 0.02 PT INR APTT Sodium 136 Potassium 3.6 Chloride 111 H Carbon Dioxide 18 L Anion Gap 11 BUN 3 L Creatinine 0.4 L Est GFR ( Amer) > 60 Est GFR (Non-Af Amer) > 60 Random Glucose 74 Calcium 7.9 L Total Bilirubin 0.5 AST 79 H ALT 31 Alkaline Phosphatase 276 H Total Protein 5.5 L Albumin 2.3 L Globulin 3.2 Albumin/Globulin Ratio 0.7 L Crossmatch See Detail 08/06/16 07:00 WBC RBC Hgb Hct MCV MCH MCHC RDW Plt Count MPV Gran % Lymph % (Auto) Fleming % (Auto) Eos % (Auto) Baso % (Auto) Gran # Lymph # Fleming # Eos # Baso # PT 14.7 H INR 1.36 H APTT 25.8 Sodium Potassium Chloride Carbon Dioxide Anion Gap BUN Creatinine Est GFR ( Amer) Est GFR (Non-Af Amer) Random Glucose Calcium Total Bilirubin AST ALT Alkaline Phosphatase Total Protein Albumin Globulin Albumin/Globulin Ratio Crossmatch Addendum Addendum: 08/06/16 18:38 patient was seen, examined and discussed at bedside with Dr. Rodas. Her note reflects my exam, assessment and plan, except as below. meds/Labs/ONE reviewed 86 yo with diverticulosis/itis, s/p Cortez procedure. Plan: pain control, early mobilization, PT/OT. IS, chest PT, pulmonary toilet, abx. dvt/gi prophylxis ccm time 40 min
--- NOTE | 2016-08-06 17:00 | CP.PCM.PN ---
Subjective - Date & Time of Evaluation Date of Evaluation: 08/06/16 Time of Evaluation: 16:30 - Subjective Subjective: Infectious Disease Follow Up: August 06, 2016 85 yo [place] [facility] Keita[place] after discovery of purulent drainage from left lower abdominal drain site. She has a history of hypertension, GI bleed, CAD with stents, anemia, and osteoporosis. Many of her hospitalizations last year were for GI bleed. 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 She is currently on ceftriaxone and Flagyl. This will cover most recurrences of E. coli. Taken to IR by Dr. Zaldivar on Friday. 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 IR drain is still showing fecal material. E. coli in cultures of wound site. Yeast in urine cultures. Tre-colectomy today. Objective - Vital Signs/Intake and Output Vital Signs (last 24 hours): Temp Pulse Resp BP Pulse Ox 98.8 F 70 18 101/56 L 100 08/06/16 16:00 08/06/16 16:00 08/06/16 16:00 08/06/16 16:00 08/06/16 16:00 Intake and Output: 08/06/16 08/06/16 06:59 18:59 Intake Total 240 Output Total 12 Balance 228 - Medications Medications: Current Medications Acetaminophen (Tylenol 325mg Tab) 650 mg PO Q6H PRN PRN Reason: Fever >100.4 F Last Admin: 08/05/16 20:11 Dose: 650 mg Alendronate Sodium (Fosamax) 70 mg PO Q7D [facility] Last Admin: 07/31/16 10:32 Dose: 70 mg Aspirin (Ecotrin) 81 mg PO DAILY [facility] Last Admin: 08/05/16 14:12 Dose: Not Given Atorvastatin Calcium (Lipitor) 40 mg PO DIN [facility] Last Admin: 08/05/16 19:27 Dose: 40 mg Calcium Carbonate (Oscal) 500 mg PO DAILY [facility] Last Admin: 08/05/16 09:44 Dose: 500 mg Cholecalciferol (Vitamin D) 2,000 iu PO DAILY [facility] Last Admin: 08/05/16 14:12 Dose: 2,000 iu Docusate Sodium (Colace) 100 mg PO TID [facility] Last Admin: 08/05/16 19:26 Dose: 100 mg Donepezil HCl (Aricept) 10 mg PO HS [facility] Last Admin: 08/05/16 21:46 Dose: 10 mg Enoxaparin Sodium (Lovenox) 30 mg SC DAILY [facility] PRN Reason: Protocol Last Admin: 08/05/16 09:47 Dose: 30 mg Ferrous Sulfate (Feosol) 324 mg PO TID [facility] Last Admin: 08/06/16 16:34 Dose: Not Given Hydromorphone HCl (Dilaudid) 0.5 mg IVP Q6H PRN PRN Reason: Pain, moderate (4-7) Hydromorphone HCl (Dilaudid) 0.5 mg IVP Q15M PRN PRN Reason: Pain, moderate (4-7) Metronidazole (Flagyl) 500 mg in 100 mls @ 100 mls/hr IVPB Q8 [facility] PRN Reason: Protocol Last Admin: 08/06/16 15:24 Dose: 100 mls/hr Cefazolin Sodium (Ancef 1gm In Ns) 1 gm in 100 mls @ 100 mls/hr IVPB Q8 [facility] PRN Reason: Protocol Last Admin: 08/06/16 16:00 Dose: 100 mls/hr Fluconazole (Diflucan Iv 200 Mg/100 Ml Ns) 100 mls @ 100 mls/hr IVPB DAILY [facility] PRN Reason: Protocol Last Admin: 08/06/16 16:20 Dose: 100 mls/hr Sodium Chloride (Sodium Chloride 0.9%) 1,000 mls @ 100 mls/hr IV .Q10H [facility] Metoprolol Tartrate (Lopressor) 50 mg PO BID [facility] Last Admin: 08/06/16 06:34 Dose: 50 mg Morphine Sulfate (Morphine) 1 mg IVP Q4H PRN PRN Reason: Pain, moderate (4-7) Last Admin: 08/02/16 14:43 Dose: 1 mg Ondansetron HCl (Zofran Inj) 4 mg IVP ONCE PRN PRN Reason: Nausea/Vomiting Ondansetron HCl (Zofran Inj) 4 mg IVP Q6 PRN PRN Reason: Nausea/Vomiting Pantoprazole Sodium (Protonix Ec Tab) 20 mg PO ACB [facility] Last Admin: 08/05/16 09:44 Dose: 20 mg Valsartan (Diovan) 320 mg PO DAILY [facility] Last Admin: 08/05/16 09:44 Dose: 320 mg - Labs Labs: 08/06/16 06:15 08/06/16 06:15 PT 14.7 Seconds (9.9-11.8) H 08/06/16 07:00 INR 1.36 (0.93-1.08) H 08/06/16 07:00 APTT 25.8 Seconds (23.7-30.8) 08/06/16 07:00 - Constitutional Appears: Non-toxic, No Acute Distress, Chronically Ill - Head Exam Head Exam: ATRAUMATIC, NORMOCEPHALIC - Eye Exam Eye Exam: EOMI, PERRL Pupil Exam: NORMAL ACCOMODATION, PERRL - ENT Exam ENT Exam: Mucous Membranes Moist, Normal External Ear Exam, TM's Normal Bilaterally - Neck Exam Neck Exam: Full ROM, Normal Inspection - Respiratory Exam Respiratory Exam: Clear to Ausculation Bilateral, NORMAL BREATHING PATTERN. absent: Rales, Rhonchi, Wheezes - Cardiovascular Exam Cardiovascular Exam: REGULAR RHYTHM, RRR, +S1, +S2 - GI/Abdominal Exam GI & Abdominal Exam: Soft, Normal Bowel Sounds. absent: Distended, Tenderness Additional comments: S/P exploratory laparotomy with sigmoid colectomy - Extremities Exam Extremities Exam: Full ROM, Normal Inspection - Neurological Exam Neurological Exam: Alert, Awake, CN II-XII Intact, Oriented x3 - Psychiatric Exam Psychiatric exam: Normal Affect, Normal Mood - Skin Skin Exam: Intact, Normal Color Assessment and Plan - Assessment and Plan (Free Text) Assessment: 86 yo female with intra-abdominal abscess presenting with drainage of pus. Taken by IR for drain placement. Spoke with Dr. Zaldivar in detail regarding case. He fears formation of fistula at this time. On Rocephin and Metronidazole. Last hospitalization showed VRE and E. coli growth. Supportive care with low tolerance for switching antibiotics to one such as meropenem. Current culture is showing E. coli that is sensitive to Rocephin and Ancef. On Ancef now. On Diflucan to cover yeast in the urine. New cultures taken. Supportive care. Sigmoid colectomy during exploratory laparotomy. Continue Ancef. Thank you for allowing me to participate in the care of the patient, we will follow with you.
[2016-08-06] MEDS ORDERED: Lactated Ringer's 500 ML IV SCH (19:07)
[2016-08-06] MEDS ORDERED: Sodium Chloride 0.9% 500 ML IV STA (23:10)
[2016-08-07] MEDS ORDERED: HYDROmorphone 0.5 mg/0.5 ml ISec IVP PRN (01:30)
[2016-08-07] MEDS: ceFAZolin 1 gm in NS 1 GM/100 ML BAG IVPB SCH ×3 (05:21→22:53)
[2016-08-07] MEDS: metroNIDAZOLE IV 500 mg/100 ml 500 MG/100 ML BAG IVPB SCH ×3 (05:33→22:52)
[2016-08-07] MEDS ORDERED: Sodium Chloride 0.9% 1,000 ML IV STA (06:10)
--- NOTE | 2016-08-07 08:11 | CP.PCM.PN ---
<Jess Wilkerson - Last Filed: 08/07/16 22:34> Subjective - Date & Time of Evaluation Date of Evaluation: 08/07/16 Time of Evaluation: 08:10 - Subjective Subjective: Medicine progress note for Dr Diaz and Dr Zuniga Patient is s/p sigmoid resection with colostomy and mucous fistula POD# 1. Patient was transferred to ICU post operatively for close monitoring. Patient only produced about 20 cc of urine since surgery despite getting ~ 4 litters of NS. Patient had episodes of hypotension ( 2x) after surgery, believed to be due to Dilaudid, however responded well to IVF. Patient 's SBP is the in the 130s. Patient is afebrile. Admits to feeling sore in the abdomen. Denies sob, cp , headache, nausea or vomiting. Patient to be transferred back to med surg for further care. Objective - Vital Signs/Intake and Output Vital Signs (last 24 hours): Temp Pulse Resp BP Pulse Ox 97 F L 73 17 147/74 99 08/07/16 03:40 08/07/16 07:32 08/07/16 07:30 08/07/16 07:30 08/07/16 07:30 Intake and Output: 08/07/16 08/07/16 06:59 18:59 Intake Total 2200 Output Total 80 Balance 2120 - Medications Medications: Current Medications Acetaminophen (Tylenol 325mg Tab) 650 mg PO Q6H PRN PRN Reason: Fever >100.4 F Last Admin: 08/05/16 20:11 Dose: 650 mg Alendronate Sodium (Fosamax) 70 mg PO Q7D [facility] Last Admin: 07/31/16 10:32 Dose: 70 mg Aspirin (Ecotrin) 81 mg PO DAILY [facility] Last Admin: 08/05/16 14:12 Dose: Not Given Atorvastatin Calcium (Lipitor) 40 mg PO DIN [facility] Last Admin: 08/05/16 19:27 Dose: 40 mg Calcium Carbonate (Oscal) 500 mg PO DAILY [facility] Last Admin: 08/05/16 09:44 Dose: 500 mg Cholecalciferol (Vitamin D) 2,000 iu PO DAILY [facility] Last Admin: 08/06/16 17:28 Dose: Not Given Docusate Sodium (Colace) 100 mg PO TID [facility] Last Admin: 08/05/16 19:26 Dose: 100 mg Donepezil HCl (Aricept) 10 mg PO HS [facility] Last Admin: 08/06/16 21:24 Dose: 10 mg Enoxaparin Sodium (Lovenox) 30 mg SC DAILY [facility] PRN Reason: Protocol Last Admin: 08/05/16 09:47 Dose: 30 mg Ferrous Sulfate (Feosol) 324 mg PO TID [facility] Last Admin: 08/06/16 17:25 Dose: Not Given Hydromorphone HCl (Dilaudid) 0.5 mg IVP Q15M PRN PRN Reason: Pain, moderate (4-7) Hydromorphone HCl (Dilaudid) 0.5 mg IVP Q6H PRN PRN Reason: Pain, severe (8-10) Metronidazole (Flagyl) 500 mg in 100 mls @ 100 mls/hr IVPB Q8 [facility] PRN Reason: Protocol Last Admin: 08/07/16 05:33 Dose: 100 mls/hr Cefazolin Sodium (Ancef 1gm In Ns) 1 gm in 100 mls @ 100 mls/hr IVPB Q8 [facility] PRN Reason: Protocol Last Admin: 08/07/16 05:21 Dose: 100 mls/hr Fluconazole (Diflucan Iv 200 Mg/100 Ml Ns) 100 mls @ 100 mls/hr IVPB DAILY [facility] PRN Reason: Protocol Last Admin: 08/06/16 16:20 Dose: 100 mls/hr Acetaminophen (Ofirmev) 1,000 mg in 100 mls @ 400 mls/hr IVPB Q6H PRN PRN Reason: Pain, moderate (4-7) Stop: 08/09/16 01:30 Sodium Chloride (Sodium Chloride 0.9%) 1,000 mls @ 125 mls/hr IV .Q8H [facility] Albumin Human (Albumin Human 5% (12.5 Gm/250 Ml)) 250 mls @ 62.5 mls/hr IV ONCE ONE Stop: 08/07/16 12:10 Metoprolol Tartrate (Lopressor) 50 mg PO BID [facility] Last Admin: 08/06/16 17:26 Dose: Not Given Morphine Sulfate (Morphine) 1 mg IVP Q4H PRN PRN Reason: Pain, moderate (4-7) Last Admin: 08/02/16 14:43 Dose: 1 mg Ondansetron HCl (Zofran Inj) 4 mg IVP ONCE PRN PRN Reason: Nausea/Vomiting Ondansetron HCl (Zofran Inj) 4 mg IVP Q6 PRN PRN Reason: Nausea/Vomiting Pantoprazole Sodium (Protonix Ec Tab) 20 mg PO ACB [facility] Last Admin: 08/05/16 09:44 Dose: 20 mg Valsartan (Diovan) 320 mg PO DAILY [facility] Last Admin: 08/05/16 09:44 Dose: 320 mg - Labs Labs: 08/06/16 06:15 08/06/16 06:15 PT 14.7 Seconds (9.9-11.8) H 08/06/16 07:00 INR 1.36 (0.93-1.08) H 08/06/16 07:00 APTT 25.8 Seconds (23.7-30.8) 08/06/16 07:00 - Constitutional Appears: No Acute Distress, Cachectic (and edematous.), Chronically Ill - Head Exam Head Exam: ATRAUMATIC, NORMAL INSPECTION, NORMOCEPHALIC - Eye Exam Eye Exam: EOMI, Normal appearance, PERRL. absent: Scleral icterus - ENT Exam ENT Exam: Mucous Membranes Moist - Neck Exam Neck Exam: Normal Inspection - Respiratory Exam Respiratory Exam: Clear to Ausculation Bilateral, NORMAL BREATHING PATTERN. absent: Rales, Rhonchi, Wheezes, Respiratory Distress, Stridor - Cardiovascular Exam Cardiovascular Exam: REGULAR RHYTHM, RRR, +S1, +S2, Murmur - GI/Abdominal Exam GI & Abdominal Exam: Soft, Tenderness (around the surgical incision.), Hypoactive Bowel Sounds. absent: Distended, Firm, Guarding, Rigid Additional comments: + midline surgical incision, and small horizontal incision with clean dressing. Patient has ostomy on the left, with pink bowel, no output yet. Patient also has 2 MO drains draining serosanguinous fluid. . - Extremities Exam Extremities Exam: Pedal Edema Additional comments: Full body edema. - Neurological Exam Neurological Exam: Alert, Awake, Oriented x3 - Psychiatric Exam Psychiatric exam: Depressed - Skin Skin Exam: Dry, Normal Color, Warm Assessment and Plan - Assessment and Plan (Free Text) Assessment: Patient is an 86 y/o with PMH of HTN, CAD s/p stents, CHF, HLD, Alzeheimer's dementia, h/o cholecystectomy, Diverticulitis admitted with intraabdominal abscess with cutaneous fistula s/p IR drain placement day # 7, s/p sigmoid resection with colostomy mucous fistula POD# 1. Patient is currently oliguric. Plan: 1) Diverticulitis with intra-abdominal abscess with cutaneous fistula - s/p IR drain placement day # 7, - s/p sigmoid resection with colostomy mucous fistula POD# 1. - Post operative wound care as per surgery - Pain control with morphine and Tylenol prn - IS, OOBTC - ivf - Intra-abdominal abscess growing ecoli. - On Ancef, diflucan and flagyl. - Diet as per surgery- currently npo except meds 2) Oliguria likely secondary KRIS due to ATN versus obstruction of Lozano or urinary tracts - Nephro, Dr Can's rec appreciated. - s/p ~4 litters of ivf - will continue with NS@125 CC/HR - strict I&Os. - Avoid NSAIDs. 3) Malnutrition with anasarca - Albumin of 2.3, a/g 0.8 - will give albumin - pellet press operator referral - will consider TPN. 4) leukocytosis -likely trended up 2nd to post operative stress response - will monitor on antibiotics. - ID following 5) Elevated lactic acid likely 2nd to hypoperfusion. - continue IVF. - Will trend. 6) Normocytic anemia - s/p 2 units prbc this admission - h/h stable 7) h/o CAD - continue asa, Lipitor, and Lopressor. - continue diovan for htn 8) Transaminitis-will continue to trend. 9) Hypomagnesium-will replete and monitor 10) Vitamin D deficiency - continue 2ooo iu of vitamin d - continue po calcium 11) h/o osteoporosis - will d/c alendronate due to renal function. 12) Dementia- continue aricept 13) DVT prophylaxis: Lovenox and protonix. 14) Dispo- pending post op. Patient, seen, examined, and case discussed with Dr Zuniga. <Aubrey Zuniga - Last Filed: 08/29/16 18:42> Objective - Vital Signs/Intake and Output Vital Signs (last 24 hours): Temp Pulse Resp BP Pulse Ox 95 F L 42 L 36 H 95/57 L 96 08/17/16 12:00 08/17/16 20:00 08/17/16 20:00 08/17/16 19:00 08/17/16 20:30 - Labs Labs: 08/17/16 05:00 08/17/16 05:00 PT 12.3 Seconds (9.9-11.8) H 08/15/16 14:50 INR 1.14 (0.93-1.08) H 08/15/16 14:50 APTT 34.8 Seconds (23.7-30.8) H 08/15/16 14:50 Attending/Attestation - Attestation I have personally seen and examined this patient.: Yes I have fully participated in the care of the patient.: Yes I have reviewed all pertinent clinical information, including history, physical exam and plan: Yes Notes (Text): 08/28/16 15:11 Medical record note made by the resident after discussion with my direction and input after the patient was personally seen and examined by me. I have reviewed the chart and agree that the record accurately reflects by personal performance of the history, physical exam, data review, and medical decision-making, in the course for the patient. I have also personally directed the plan of care.
[2016-08-07] MEDS: Pantoprazole 20 mg EC Tab PO SCH (08:18)
--- NOTE | 2016-08-07 10:01 | CP.PCM.PN ---
<Franck Carmona - Last Filed: 08/07/16 09:58> Subjective - Date & Time of Evaluation Date of Evaluation: 08/07/16 Time of Evaluation: 09:58 - Subjective Subjective: GI for Dr. Archuleta Pt s&e w attending. Pt had surgery yesterday and tolerated it well. Pain controlled. Denies F/C/n/V/D/CP/SOB. Objective - Vital Signs/Intake and Output Vital Signs (last 24 hours): Temp Pulse Resp BP Pulse Ox 97.4 F L 79 15 131/52 L 83 L 08/07/16 08:00 08/07/16 09:00 08/07/16 09:00 08/07/16 09:00 08/07/16 09:00 Intake and Output: 08/07/16 08/07/16 06:59 18:59 Intake Total 2200 Output Total 80 Balance 2120 - Medications Medications: Current Medications Acetaminophen (Tylenol 325mg Tab) 650 mg PO Q6H PRN PRN Reason: Fever >100.4 F Last Admin: 08/05/16 20:11 Dose: 650 mg Alendronate Sodium (Fosamax) 70 mg PO Q7D [facility] Last Admin: 07/31/16 10:32 Dose: 70 mg Aspirin (Ecotrin) 81 mg PO DAILY [facility] Last Admin: 08/05/16 14:12 Dose: Not Given Atorvastatin Calcium (Lipitor) 40 mg PO DIN [facility] Last Admin: 08/05/16 19:27 Dose: 40 mg Calcium Carbonate (Oscal) 500 mg PO DAILY [facility] Last Admin: 08/05/16 09:44 Dose: 500 mg Cholecalciferol (Vitamin D) 2,000 iu PO DAILY [facility] Last Admin: 08/06/16 17:28 Dose: Not Given Docusate Sodium (Colace) 100 mg PO TID [facility] Last Admin: 08/05/16 19:26 Dose: 100 mg Donepezil HCl (Aricept) 10 mg PO HS [facility] Last Admin: 08/06/16 21:24 Dose: 10 mg Enoxaparin Sodium (Lovenox) 30 mg SC DAILY [facility] PRN Reason: Protocol Last Admin: 08/05/16 09:47 Dose: 30 mg Ferrous Sulfate (Feosol) 324 mg PO TID [facility] Last Admin: 08/06/16 17:25 Dose: Not Given Hydromorphone HCl (Dilaudid) 0.5 mg IVP Q6H PRN PRN Reason: Pain, severe (8-10) Metronidazole (Flagyl) 500 mg in 100 mls @ 100 mls/hr IVPB Q8 [facility] PRN Reason: Protocol Last Admin: 08/07/16 05:33 Dose: 100 mls/hr Cefazolin Sodium (Ancef 1gm In Ns) 1 gm in 100 mls @ 100 mls/hr IVPB Q8 [facility] PRN Reason: Protocol Last Admin: 08/07/16 05:21 Dose: 100 mls/hr Fluconazole (Diflucan Iv 200 Mg/100 Ml Ns) 100 mls @ 100 mls/hr IVPB DAILY [facility] PRN Reason: Protocol Last Admin: 08/06/16 16:20 Dose: 100 mls/hr Sodium Chloride (Sodium Chloride 0.9%) 1,000 mls @ 125 mls/hr IV .Q8H [facility] Albumin Human (Albumin Human 5% (12.5 Gm/250 Ml)) 250 mls @ 62.5 mls/hr IV ONCE ONE Stop: 08/07/16 12:10 Last Admin: 08/07/16 09:20 Dose: 62.5 mls/hr Metoprolol Tartrate (Lopressor) 50 mg PO BID [facility] Last Admin: 08/06/16 17:26 Dose: Not Given Morphine Sulfate (Morphine) 1 mg IVP Q4H PRN PRN Reason: Pain, moderate (4-7) Last Admin: 08/02/16 14:43 Dose: 1 mg Ondansetron HCl (Zofran Inj) 4 mg IVP ONCE PRN PRN Reason: Nausea/Vomiting Ondansetron HCl (Zofran Inj) 4 mg IVP Q6 PRN PRN Reason: Nausea/Vomiting Pantoprazole Sodium (Protonix Ec Tab) 20 mg PO ACB [facility] Last Admin: 08/07/16 08:18 Dose: Not Given Valsartan (Diovan) 320 mg PO DAILY [facility] Last Admin: 08/05/16 09:44 Dose: 320 mg - Labs Labs: 08/06/16 06:15 08/06/16 06:15 PT 14.7 Seconds (9.9-11.8) H 08/06/16 07:00 INR 1.36 (0.93-1.08) H 08/06/16 07:00 APTT 25.8 Seconds (23.7-30.8) 08/06/16 07:00 - Head Exam Head Exam: ATRAUMATIC, NORMAL INSPECTION, NORMOCEPHALIC - Eye Exam Eye Exam: EOMI, Normal appearance, PERRL Pupil Exam: NORMAL ACCOMODATION, PERRL - ENT Exam ENT Exam: Mucous Membranes Moist, Normal Exam - Neck Exam Neck Exam: Full ROM, Normal Inspection. absent: Lymphadenopathy - Respiratory Exam Respiratory Exam: Clear to Ausculation Bilateral, NORMAL BREATHING PATTERN - Cardiovascular Exam Cardiovascular Exam: REGULAR RHYTHM, +S1, +S2. absent: Murmur - GI/Abdominal Exam GI & Abdominal Exam: Soft, Tenderness, Normal Bowel Sounds. absent: Distended, Firm, Guarding, Rigid Additional comments: Ostomy in place . MO x2. minimal drainage. No signs of infection - Extremities Exam Extremities Exam: Full ROM, Normal Capillary Refill, Normal Inspection. absent : Joint Swelling, Pedal Edema - Back Exam Back Exam: NORMAL INSPECTION - Neurological Exam Neurological Exam: Alert, Awake, CN II-XII Intact, Oriented x3 Assessment and Plan - Assessment and Plan (Free Text) Assessment: LLQ intraabdominal abscess and colovesicular fistula s/p Ex lap Sigmoidectomy with ostomy creation Diet per surgery Monitor ostomy MOnitor labs /VS Medical management DW Dr. Archuleta <Long Archuleta V - Last Filed: 09/25/16 14:42> Objective - Vital Signs/Intake and Output Vital Signs (last 24 hours): Temp Pulse Resp BP Pulse Ox 95 F L 42 L 36 H 95/57 L 96 08/17/16 12:00 08/17/16 20:00 08/17/16 20:00 08/17/16 19:00 08/17/16 20:30 - Labs Labs: 08/17/16 05:00 08/17/16 05:00 PT 12.3 Seconds (9.9-11.8) H 08/15/16 14:50 INR 1.14 (0.93-1.08) H 08/15/16 14:50 APTT 34.8 Seconds (23.7-30.8) H 08/15/16 14:50 - GI/Abdominal Exam GI & Abdominal Exam: Soft, Tenderness, Normal Bowel Sounds. absent: Guarding, Rebound Additional comments: (+) Ostomy , OM drain X2, minimal drain Assessment and Plan - Assessment and Plan (Free Text) Assessment: The patient was seen and examined at bedside. Medical records, lab studies, imaging were reviewed. Last 24 hours events reviewed. Agreed with the above findings and treatment plan as outlined in 's note, FU H/H, continue IV antibiotics.
--- NOTE | 2016-08-07 10:07 | CP.PCM.PN ---
Subjective - Date & Time of Evaluation Date of Evaluation: 08/07/16 Time of Evaluation: 07:30 - Subjective Subjective: Surgery: Dr. Keita Pt seen and examined. No acute overnight events. States she has some pain around the incision site but otherwise denies complaints. Denies N/V, F/C. Objective - Vital Signs/Intake and Output Vital Signs (last 24 hours): Temp Pulse Resp BP Pulse Ox 97.4 F L 70 17 123/72 99 08/07/16 08:00 08/07/16 09:50 08/07/16 09:50 08/07/16 09:30 08/07/16 09:40 Intake and Output: 08/07/16 08/07/16 06:59 18:59 Intake Total 2200 1625 Output Total 80 Balance 2120 1625 - Medications Medications: Current Medications Acetaminophen (Tylenol 325mg Tab) 650 mg PO Q6H PRN PRN Reason: Fever >100.4 F Last Admin: 08/05/16 20:11 Dose: 650 mg Alendronate Sodium (Fosamax) 70 mg PO Q7D [facility] Last Admin: 07/31/16 10:32 Dose: 70 mg Aspirin (Ecotrin) 81 mg PO DAILY [facility] Last Admin: 08/05/16 14:12 Dose: Not Given Atorvastatin Calcium (Lipitor) 40 mg PO DIN [facility] Last Admin: 08/05/16 19:27 Dose: 40 mg Calcium Carbonate (Oscal) 500 mg PO DAILY [facility] Last Admin: 08/05/16 09:44 Dose: 500 mg Cholecalciferol (Vitamin D) 2,000 iu PO DAILY [facility] Last Admin: 08/06/16 17:28 Dose: Not Given Docusate Sodium (Colace) 100 mg PO TID [facility] Last Admin: 08/05/16 19:26 Dose: 100 mg Donepezil HCl (Aricept) 10 mg PO HS [facility] Last Admin: 08/06/16 21:24 Dose: 10 mg Enoxaparin Sodium (Lovenox) 30 mg SC DAILY [facility] PRN Reason: Protocol Last Admin: 08/05/16 09:47 Dose: 30 mg Ferrous Sulfate (Feosol) 324 mg PO TID [facility] Last Admin: 08/06/16 17:25 Dose: Not Given Hydromorphone HCl (Dilaudid) 0.5 mg IVP Q6H PRN PRN Reason: Pain, severe (8-10) Metronidazole (Flagyl) 500 mg in 100 mls @ 100 mls/hr IVPB Q8 [facility] PRN Reason: Protocol Last Admin: 08/07/16 05:33 Dose: 100 mls/hr Cefazolin Sodium (Ancef 1gm In Ns) 1 gm in 100 mls @ 100 mls/hr IVPB Q8 [facility] PRN Reason: Protocol Last Admin: 08/07/16 05:21 Dose: 100 mls/hr Fluconazole (Diflucan Iv 200 Mg/100 Ml Ns) 100 mls @ 100 mls/hr IVPB DAILY [facility] PRN Reason: Protocol Last Admin: 08/06/16 16:20 Dose: 100 mls/hr Sodium Chloride (Sodium Chloride 0.9%) 1,000 mls @ 125 mls/hr IV .Q8H [facility] Albumin Human (Albumin Human 5% (12.5 Gm/250 Ml)) 250 mls @ 62.5 mls/hr IV ONCE ONE Stop: 08/07/16 12:10 Last Admin: 08/07/16 09:20 Dose: 62.5 mls/hr Metoprolol Tartrate (Lopressor) 50 mg PO BID [facility] Last Admin: 08/06/16 17:26 Dose: Not Given Morphine Sulfate (Morphine) 1 mg IVP Q4H PRN PRN Reason: Pain, moderate (4-7) Last Admin: 08/02/16 14:43 Dose: 1 mg Ondansetron HCl (Zofran Inj) 4 mg IVP ONCE PRN PRN Reason: Nausea/Vomiting Ondansetron HCl (Zofran Inj) 4 mg IVP Q6 PRN PRN Reason: Nausea/Vomiting Pantoprazole Sodium (Protonix Ec Tab) 20 mg PO ACB [facility] Last Admin: 08/07/16 08:18 Dose: Not Given Valsartan (Diovan) 320 mg PO DAILY [facility] Last Admin: 08/05/16 09:44 Dose: 320 mg - Labs Labs: 08/06/16 06:15 08/06/16 06:15 PT 14.7 Seconds (9.9-11.8) H 08/06/16 07:00 INR 1.36 (0.93-1.08) H 08/06/16 07:00 APTT 25.8 Seconds (23.7-30.8) 05/23/17 07:00 - Constitutional Appears: No Acute Distress - Head Exam Head Exam: ATRAUMATIC, NORMOCEPHALIC - ENT Exam ENT Exam: Mucous Membranes Dry - Respiratory Exam Respiratory Exam: NORMAL BREATHING PATTERN - Cardiovascular Exam Cardiovascular Exam: RRR - GI/Abdominal Exam GI & Abdominal Exam: Soft, Tenderness (around incision site, colostomy pink/ patent with minimal fluid in bag. Fortino x2 in place; serosanguinous output noted ). absent: Distended, Guarding - Extremities Exam Extremities Exam: absent: Tenderness - Neurological Exam Neurological Exam: Alert, Awake, Oriented x3 - Skin Skin Exam: Dry, Warm Assessment and Plan - Assessment and Plan (Free Text) Assessment: 86F s/p sigmoid resection with colostomy and mucous fistula: POD#1 Plan: - Cont IV ABX - Monitor ostomy output - UOP is not adequate; cont IVF with bolus challenges - Encourage out of bed to chair & IS use - DVT/GI PPX - d/w Dr. Bossman Saavedra, PGY-2 Surgery
[2016-08-07 11:35] LABS: ADD MANUAL DIFF? NO
[2016-08-07 11:38] LABS: VENOUS BLOOD PH 7.24 (7.32-7.43)
[2016-08-07 11:44] LABS: BASO # 0.01 K/mm3 (0.0-2.0); BASO % 0.1 % (0.0-3.0); EOS % 0.1 % (1.5-5.0); GRAN # 16.05 (1.4-6.5); GRAN % 85.2 % (50.0-68.0); HEMATOCRIT 32.8 % (36.0-48.0); LYMPH # 1.7 (1.2-3.4); LYMPH % 8.9 % (22.0-35.0); MEAN CELL VOLUME 92.7 fL (80.0-105.0); MEAN CORPUSCULAR HEMOGLOBIN 29.7 pg (25.0-35.0); MEAN PLATELET VOLUME 9.7 fl (7.0-11.0); MONO # 1.1 (0.1-0.6); MONO % 5.7 % (1.0-6.0); PLATELET COUNT 339 10^3/uL (120.0-450.0); RED CELL DISTRIBUTION WIDTH 18.8 % (11.5-14.5); WHITE BLOOD COUNT 18.8 10^3/ul (4.5-11.0)
[2016-08-07 11:50] LABS: ALB/GLOB RATIO 0.8 (1.1-1.8); ALKALINE PHOSPHATASE 222 U/L (38-133); ALT/SGPT 29 U/L (7-56); AST/SGOT 58 U/L (15-39); BILIRUBIN,TOTAL 0.3 mg/dL (0.2-1.3); BLOOD UREA NITROGEN 8 mg/dL (7-21); CALCIUM 7.6 mg/dL (8.4-10.5); CARBON DIOXIDE 21 mmol/L (21-33); CHLORIDE 111 mmol/L (98-107); GFR AFRICAN-AMERICAN > 60; GLUCOSE,RANDOM 89 mg/dL (70-110); MAGNESIUM 1.3 mg/dL (1.7-2.2); PHOSPHOROUS 3.8 mg/dL (2.5-4.5); POTASSIUM 3.7 mmol/L (3.6-5.0); SODIUM 139 mmol/L (132-148); TOTAL PROTEIN 5.1 g/dL (5.8-8.3)
[2016-08-07 11:51] LABS: INR 1.41 (0.93-1.08); PARTIAL THROMBOPLASTIN TIME 32.7 Seconds (23.7-30.8)
[2016-08-07] MEDS ORDERED: Sodium Chloride 0.9% 500 ML IV STA (12:17)
[2016-08-07] MEDS ORDERED: Magnesium Sulfate 2 GM in Sodium Chloride 0.9% 100 ML IVPB ONE (12:18)
[2016-08-07] MEDS: Morphine 2 mg/ml ISec IVP PRN (13:59)
[2016-08-07] MEDS: Fluconazole IV 200mg/100 ml NS 100 ML IVPB SCH (14:03)
[2016-08-07] MEDS ORDERED: Acetaminophen 160 mg/5 ml UD PO PRN (14:23)
--- NOTE | 2016-08-07 16:01 | CP.CCUPN ---
<Mariel Rodas - Last Filed: 08/07/16 16:09> CCU Subjective - Physician Review Events Since Last Encounter (Free Text): 08/07/16 16:00 Stable overnight, pain well controlled, UOP continues to be poor Subjective (Free Text): 08/07/16 16:00 Critical care consult note for Dr. Castro- Mariel Rodas, PGY-1 Pt S & E at bedside this AM. Pt with poor UOP overnight, 20cc/12H shift, given 1L bolus + maintenance fluids for a total of ~2200cc in. Otherwise, pt stable overnight. Pain well controlled. CCU Objective - Vital Signs / Intake & Output Vital Signs (Last 4 hours): Vital Signs Temp Pulse Resp BP Pulse Ox 08/07/16 15:57 98 F 72 18 154/72 H 97 08/07/16 13:38 74 16 173/72 H 100 Intake and Output (Last 8hrs): Intake & Output 08/07/16 08/07/16 08/07/16 06:59 14:59 22:59 Intake Total 2200 1625 Output Total 80 100 Balance 2120 1525 Weight 72.167 kg Intake: IV 2200 1625 Right Internal Jugular 2200 1625 Oral 0 Output: Drainage 60 Left Abdomen 60 Right Abdomen 0 Urine 20 100 Urethral (Cote) 20 100 Other: Voiding Method Indwelling Catheter # Bowel Movements Urethral (Cote) 0 - Physical Exam Head: Positive for: Atraumatic Pupils: Positive for: PERRL Extroacular Muscles: Positive for: EOMI Conjunctiva: Positive for: Normal Ears: Positive for: Normal Mouth: Positive for: Moist Mucous Membranes Nose (External): Positive for: Atraumatic Neck: Positive for: Normal Range of Motion Respiratory/Chest: Positive for: Clear to Auscultation, Good Air Exchange. Negative for: Respiratory Distress, Accessory Muscle Use Cardiovascular: Positive for: Regular Rate and Rhythm, Normal S1, S2. Negative for: Murmurs Abdomen: Positive for: Tenderness (minimal along incision sites and around drain insertion sites, B/L lower quadrant Fortino drains in place with scant serosanguinous output), Ostomy Tubes (ostomy bag with scant brown liquid output , stoma pink, non bloody). Negative for: Distention, Normal Bowel Sounds ( hypoactive), Peritoneal Signs, Rebound Back: Positive for: Normal Inspection Upper Extremity: Positive for: Edema (B/L, minimal). Negative for: Normal Inspection Lower Extremity: Positive for: Edema, Tenderness (B/L). Negative for: Normal Inspection Neurological: Positive for: GCS=15, CN II-XII Intact, Speech Normal Skin: Positive for: Warm, Dry, Normal Color. Negative for: Rashes Psychiatric: Positive for: Alert, Oriented x 3, Normal Concentration. Negative for: Normal Insight (demented) - Medications Active Medications: Active Medications Generic Name Dose Route Start Last Admin Trade Name Freq PRN Reason Stop Dose Admin Acetaminophen 320 mg 08/07/16 14:23 Tylenol 160mg/5ml Oral Soln PO Q4 PRN Fever >100.4 F Alendronate Sodium 70 mg 07/31/16 07:00 07/31/16 10:32 Fosamax PO 70 mg Q7D JENNIFER Administration Aspirin 81 mg 07/31/16 10:00 08/05/16 14:12 Ecotrin PO Not Given DAILY [facility] Atorvastatin Calcium 40 mg 07/31/16 17:00 08/05/16 19:27 Lipitor PO 40 mg DIN JENNIFER Administration Benzocaine/Menthol 1 burton 08/07/16 14:23 Cepacol Sore Throat MT Q2H PRN Sore Throat Calcium Carbonate 500 mg 08/02/16 10:00 08/05/16 09:44 Oscal PO 500 mg DAILY [facility] Administration Cholecalciferol 2,000 iu 08/05/16 10:00 08/06/16 17:28 Vitamin D PO Not Given DAILY [facility] Clonidine HCl 1 patch 08/07/16 15:00 Catapres Tts1 0.1 Mg/24 Hr TD Q7D@1000 [facility] Docusate Sodium 100 mg 07/31/16 10:00 08/05/16 19:26 Colace PO 100 mg TID JENNIFER Administration Donepezil HCl 10 mg 07/31/16 22:00 08/06/16 21:24 Aricept PO 10 mg HS JENNIFER Administration Enoxaparin Sodium 30 mg 08/02/16 10:00 08/05/16 09:47 Lovenox SC 30 mg DAILY JENNIFER Administration Protocol Ferrous Sulfate 324 mg 07/31/16 10:00 08/07/16 14:20 Feosol PO Not Given TID [facility] Metronidazole 500 mg in 100 mls @ 100 mls/hr 07/31/16 06:00 08/07/16 05:33 Flagyl IVPB 100 mls/hr Q8 JENNIFER Administration Protocol Cefazolin Sodium 1 gm in 100 mls @ 100 mls/hr 08/02/16 22:00 08/07/16 05:21 Ancef 1gm In Ns IVPB 100 mls/hr Q8 JENNIFER Administration Protocol Fluconazole 100 mls @ 100 mls/hr 08/02/16 16:15 08/07/16 14:03 Diflucan Iv 200 Mg/100 Ml Ns IVPB 100 mls/hr DAILY JENNIFER Administration Protocol Sodium Chloride 1,000 mls @ 125 mls/hr 08/07/16 06:10 Sodium Chloride 0.9% IV .Q8H JENNIFER Metoprolol Tartrate 50 mg 07/31/16 10:00 08/06/16 17:26 Lopressor PO Not Given BID JENNIFER Morphine Sulfate 1 mg 07/31/16 15:38 08/07/16 13:59 Morphine IVP 1 mg Q4H PRN Administration Pain, moderate (4-7) Ondansetron HCl 4 mg 08/06/16 12:19 Zofran Inj IVP ONCE PRN Nausea/Vomiting Ondansetron HCl 4 mg 08/06/16 12:24 Zofran Inj IVP Q6 PRN Nausea/Vomiting Pantoprazole Sodium 20 mg 07/31/16 07:30 08/07/16 08:18 Protonix Ec Tab PO Not Given ACB JENNIFER - Patient Studies Lab Studies: Lab Studies 08/07/16 08/07/16 08/07/16 Range/Units 12:28 11:30 11:30 WBC (4.5-11.0) 10^3/ul RBC (3.5-6.1) 10^6/uL Hgb (12.0-16.0) gm/dL Hct (36.0-48.0) % MCV (80.0-105.0) fL MCH (25.0-35.0) pg MCHC (31.0-37.0) g/dl RDW (11.5-14.5) % Plt Count (120.0-450.0) 10^3/uL MPV (7.0-11.0) fl Gran % (50.0-68.0) % Lymph % (Auto) (22.0-35.0) % Becker % (Auto) (1.0-6.0) % Eos % (Auto) (1.5-5.0) % Baso % (Auto) (0.0-3.0) % Gran # (1.4-6.5) Lymph # (1.2-3.4) Becker # (0.1-0.6) Eos # (0.0-0.7) Baso # (0.0-2.0) K/mm3 PT 15.2 H (9.9-11.8) Seconds INR 1.41 H (0.93-1.08) APTT 32.7 H (23.7-30.8) Seconds pO2 31 (30-55) mm/Hg VBG pH 7.24 L (7.32-7.43) VBG pCO2 45.0 (40-60) VBG HCO3 19.3 L (21-28) mmol/l VBG Total CO2 20.7 L (22-28) mmol.L VBG O2 Sat (Calc) 57.6 (40-65) % VBG Base Excess -8.0 L (0.0-2.0) mmol/L VBG Potassium 3.8 (3.6-5.2) mmol/L Sodium 138.0 (132-148) mmol/L Chloride 115.0 H (98-107) mmol/L Glucose 92 (65-105) mg/dl Lactate 2.6 H (0.7-2.1) mmol/L FiO2 21.0 % Potassium (3.6-5.0) mmol/L Carbon Dioxide (21-33) mmol/L Anion Gap (10-20) BUN (7-21) mg/dL Creatinine (0.5-1.4) mg/dL Est GFR ( Amer) Est GFR (Non-Af Amer) Random Glucose (70-110) mg/dL Lactic Acid 2.7 H (0.7-2.1) mmol/L Calcium (8.4-10.5) mg/dL Phosphorus (2.5-4.5) mg/dL Magnesium (1.7-2.2) mg/dL Total Bilirubin (0.2-1.3) mg/dL AST (15-39) U/L ALT (7-56) U/L Alkaline Phosphatase (38-133) U/L Total Protein (5.8-8.3) g/dL Albumin (3.0-4.8) g/dL Globulin gm/dL Albumin/Globulin Ratio (1.1-1.8) Venous Blood Potassium 3.8 (3.6-5.2) mmol/L 08/07/16 08/07/16 Range/Units 11:30 11:30 WBC 18.8 H D (4.5-11.0) 10^3/ul RBC 3.54 (3.5-6.1) 10^6/uL Hgb 10.5 L (12.0-16.0) gm/dL Hct 32.8 L (36.0-48.0) % MCV 92.7 (80.0-105.0) fL MCH 29.7 (25.0-35.0) pg MCHC 32.0 (31.0-37.0) g/dl RDW 18.8 H (11.5-14.5) % Plt Count 339 (120.0-450.0) 10^3/uL MPV 9.7 (7.0-11.0) fl Gran % 85.2 H (50.0-68.0) % Lymph % (Auto) 8.9 L (22.0-35.0) % Becker % (Auto) 5.7 (1.0-6.0) % Eos % (Auto) 0.1 L (1.5-5.0) % Baso % (Auto) 0.1 (0.0-3.0) % Gran # 16.05 H (1.4-6.5) Lymph # 1.7 (1.2-3.4) Becker # 1.1 H (0.1-0.6) Eos # 0.0 (0.0-0.7) Baso # 0.01 (0.0-2.0) K/mm3 PT (9.9-11.8) Seconds INR (0.93-1.08) APTT (23.7-30.8) Seconds pO2 (30-55) mm/Hg VBG pH (7.32-7.43) VBG pCO2 (40-60) VBG HCO3 (21-28) mmol/l VBG Total CO2 (22-28) mmol.L VBG O2 Sat (Calc) (40-65) % VBG Base Excess (0.0-2.0) mmol/L VBG Potassium (3.6-5.2) mmol/L Sodium 139 (132-148) mmol/L Chloride 111 H (98-107) mmol/L Glucose (65-105) mg/dl Lactate (0.7-2.1) mmol/L FiO2 % Potassium 3.7 (3.6-5.0) mmol/L Carbon Dioxide 21 (21-33) mmol/L Anion Gap 11 (10-20) BUN 8 (7-21) mg/dL Creatinine 0.8 (0.5-1.4) mg/dL Est GFR ( Amer) > 60 Est GFR (Non-Af Amer) > 60 Random Glucose 89 (70-110) mg/dL Lactic Acid (0.7-2.1) mmol/L Calcium 7.6 L (8.4-10.5) mg/dL Phosphorus 3.8 (2.5-4.5) mg/dL Magnesium 1.3 L (1.7-2.2) mg/dL Total Bilirubin 0.3 (0.2-1.3) mg/dL AST 58 H (15-39) U/L ALT 29 (7-56) U/L Alkaline Phosphatase 222 H (38-133) U/L Total Protein 5.1 L (5.8-8.3) g/dL Albumin 2.3 L (3.0-4.8) g/dL Globulin 2.9 gm/dL Albumin/Globulin Ratio 0.8 L (1.1-1.8) Venous Blood Potassium (3.6-5.2) mmol/L Laboratory Results - last 24 hr 08/07/16 08/07/16 08/07/16 11:30 11:30 11:30 WBC 18.8 H D RBC 3.54 Hgb 10.5 L Hct 32.8 L MCV 92.7 MCH 29.7 MCHC 32.0 RDW 18.8 H Plt Count 339 MPV 9.7 Gran % 85.2 H Lymph % (Auto) 8.9 L Becker % (Auto) 5.7 Eos % (Auto) 0.1 L Baso % (Auto) 0.1 Gran # 16.05 H Lymph # 1.7 Becker # 1.1 H Eos # 0.0 Baso # 0.01 PT 15.2 H INR 1.41 H APTT 32.7 H pO2 VBG pH VBG pCO2 VBG HCO3 VBG Total CO2 VBG O2 Sat (Calc) VBG Base Excess VBG Potassium Sodium 139 Chloride 111 H Glucose Lactate FiO2 Potassium 3.7 Carbon Dioxide 21 Anion Gap 11 BUN 8 Creatinine 0.8 Est GFR ( Amer) > 60 Est GFR (Non-Af Amer) > 60 Random Glucose 89 Lactic Acid Calcium 7.6 L Phosphorus 3.8 Magnesium 1.3 L Total Bilirubin 0.3 AST 58 H ALT 29 Alkaline Phosphatase 222 H Total Protein 5.1 L Albumin 2.3 L Globulin 2.9 Albumin/Globulin Ratio 0.8 L Venous Blood Potassium 08/07/16 08/07/16 11:30 12:28 WBC RBC Hgb Hct MCV MCH MCHC RDW Plt Count MPV Gran % Lymph % (Auto) Becker % (Auto) Eos % (Auto) Baso % (Auto) Gran # Lymph # Becker # Eos # Baso # PT INR APTT pO2 31 VBG pH 7.24 L VBG pCO2 45.0 VBG HCO3 19.3 L VBG Total CO2 20.7 L VBG O2 Sat (Calc) 57.6 VBG Base Excess -8.0 L VBG Potassium 3.8 Sodium 138.0 Chloride 115.0 H Glucose 92 Lactate 2.6 H FiO2 21.0 Potassium Carbon Dioxide Anion Gap BUN Creatinine Est GFR ( Amer) Est GFR (Non-Af Amer) Random Glucose Lactic Acid 2.7 H Calcium Phosphorus Magnesium Total Bilirubin AST ALT Alkaline Phosphatase Total Protein Albumin Globulin Albumin/Globulin Ratio Venous Blood Potassium 3.8 Review of Systems - Review of Systems Systems not reviewed;Unavailable: Dementia All systems: reviewed and no additional remarkable complaints except - Constitutional Constitutional: absent: Fever, Chills - Gastrointestinal Gastrointestinal: Abdominal Pain. absent: Nausea, Vomiting - Musculoskeletal Musculoskeletal: Muscle Weakness (B/L LE (chronic)) Critical Care Progress Note - Ventilator Checklist PUD Prophalyxis: Yes DVT Prophylaxis: Yes - Extremities/Vascular Does the Patient have a Central Venous Catheter?: No Does the Patient need a Central Venous Catheter?: No Does the Patient have a Cote Catheter?: Yes Does the Patient need a Cote Catheter?: Yes Catheter Insertion Criteria: Need for accurate measurement of output in critically ill patient - Prophylaxis GI Prophylaxis GI: PPI - Prophylaxis DVT Prophylaxis DVT: Lovenox - Nutrition Nutrition: Nutrition Category Date Time Status NPO Diet [DIET] Diets 08/05/16 Dinner Ordered Assessment/Plan - Assessment and Plan (Free Text) Assessment: 86F w/PMH sig for HTN, CAD s/p stents, CHF, HLD, Alzeheimer's dementia and Diverticulitis w/abscess s/p IR drain placement on 07/31 POD#1 s/p Exploratory laparotomy with sigmoid resection, washout of intra-abdominal abscess, mobilization of the splenic flexure, creation of ostomy and mucous fistula creation w/B/L ureteral stent placement as per urology. Pt with poor UOP since operation, to continue fluid resuscitation. Pt stable for transfer to med- surg. Medical mgmt as per primary team. Plan: Neuro Alert Awake AOx1 Hx Alzehiemer's dementia- answering some questions Cont home meds: Aricept Pain regimen: Dilaudid 0.5mg Q6H PRN, Tylenol 650mg Q6H PRN Stable CVS Hx CAD, HR in 70's BP 131/52 Cont home meds: ASA, Lopressor, Diovan Lipitor restarted Monitor VS Cardio following Pulm Sat 100% on 3L O2 via NC Target SaO2 >94% Encourage IS use/deep breathing Chest PT Monitor GI Zofran PRN Protonix NPO except meds and ice chips Diet to be advanced as per surgery Colace restarted GI following Nephro NS@100 increased to 125 Given 1 L bolus this AM Per medical team- will be given Albumin and continue with fluid resuscitation Electrolytes WNL BUN 8 from 3 Cr 0.8 from 0.4 Monitor UOP Keep Cote in place Strict I/O's Target euvolemia Cote in place UOP 37cc/4 hrs post op UOP 20 cc/12H S/p B/L ureteral stent placement Bladder scan 12cc overnight Will keep cote to monitor I/Os Strict I/Os Endo BS 89 Target euglycemia as per NICE sugar trial Cont home med: Fosamax, Oscal, Vitamin D ID Afebrile Leukocytosis of 18.8 post op, will monitor Fluid cxr neg for growth No AFB - neg mycobacterial cxr Fungal cxr neg Abscess cxr w/E Coli Cont Ancef 1gm Q8H Cont Fluconazole 200mg QD Cont Flagyl 500mg Q8H Target normothermia ID following Heme Hgb 10.5 from 11.7 Hct 32.8 from 36.6 Plts 339 from 365 Cont home med: Feosol Monitor Fortino drain output Monitor for bleeding MSK Baseline uses WC at home Deconditioned Monitor for skin break down PT OOBTC w/assistance Drainage changes as per surgery GI/DVT ppx Lovenox re-started Protonix SCDs Knee AE Hose Dispo Stable Transfer to med-surg Post op mgmt as per surgery Cote to be kept in place DW attending - Date & Time Date: 08/07/16 Time: 07:15 <Beau Castro - Last Filed: 08/07/16 19:07> CCU Objective - Vital Signs / Intake & Output Vital Signs (Last 4 hours): Vital Signs Temp Pulse Resp BP Pulse Ox 08/07/16 18:07 72 154/72 H 08/07/16 16:16 72 154/72 H 08/07/16 15:57 98 F 72 18 154/72 H 97 Intake and Output (Last 8hrs): Intake & Output 08/07/16 08/07/16 08/07/16 06:59 14:59 22:59 Intake Total 2200 1625 Output Total 80 100 Balance 2120 1525 Weight 159 lb 1.6 oz Intake: IV 2200 1625 Right Internal Jugular 2200 1625 Oral 0 Output: Drainage 60 Left Abdomen 60 Right Abdomen 0 Urine 20 100 Urethral (Cote) 20 100 Other: Voiding Method Indwelling Catheter # Bowel Movements Urethral (Cote) 0 - Medications Active Medications: Active Medications Generic Name Dose Route Start Last Admin Trade Name Freq PRN Reason Stop Dose Admin Acetaminophen 320 mg 08/07/16 14:23 Tylenol 160mg/5ml Oral Soln PO Q4 PRN Fever >100.4 F Aspirin 81 mg 07/31/16 10:00 08/07/16 16:14 Ecotrin PO Not Given DAILY JENNIFER Atorvastatin Calcium 40 mg 07/31/16 17:00 08/05/16 19:27 Lipitor PO 40 mg DIN JENNIFER Administration Benzocaine/Menthol 1 burton 08/07/16 14:23 08/07/16 16:13 Cepacol Sore Throat MT 1 burton Q2H PRN Administration Sore Throat Calcium Carbonate 500 mg 08/02/16 10:00 08/05/16 09:44 Oscal PO 500 mg DAILY JENNIFER Administration Cholecalciferol 2,000 iu 08/05/16 10:00 08/06/16 17:28 Vitamin D PO Not Given DAILY [facility] Clonidine HCl 1 patch 08/07/16 15:00 08/07/16 16:16 Catapres Tts1 0.1 Mg/24 Hr TD 1 patch Q7D@1000 JENNIFER Administration Docusate Sodium 100 mg 07/31/16 10:00 08/05/16 19:26 Colace PO 100 mg TID JENNIFER Administration Donepezil HCl 10 mg 07/31/16 22:00 08/06/16 21:24 Aricept PO 10 mg HS JENNIFER Administration Enoxaparin Sodium 30 mg 08/02/16 10:00 08/05/16 09:47 Lovenox SC 30 mg DAILY JENNIFER Administration Protocol Ferrous Sulfate 324 mg 07/31/16 10:00 08/07/16 18:07 Feosol PO 324 mg TID JENNIFER Administration Metronidazole 500 mg in 100 mls @ 100 mls/hr 07/31/16 06:00 08/07/16 16:45 Flagyl IVPB 100 mls/hr Q8 [facility] Administration Protocol Cefazolin Sodium 1 gm in 100 mls @ 100 mls/hr 08/02/16 22:00 08/07/16 15:45 Ancef 1gm In Ns IVPB 100 mls/hr Q8 JENNIFER Administration Protocol Fluconazole 100 mls @ 100 mls/hr 08/02/16 16:15 08/07/16 14:03 Diflucan Iv 200 Mg/100 Ml Ns IVPB 100 mls/hr DAILY [facility] Administration Protocol Sodium Chloride 1,000 mls @ 125 mls/hr 08/07/16 06:10 08/07/16 18:27 Sodium Chloride 0.9% IV 125 mls/hr .Q8H JENNIFER Administration Metoprolol Tartrate 50 mg 07/31/16 10:00 08/07/16 18:07 Lopressor PO 50 mg BID JENNIFER Administration Morphine Sulfate 1 mg 07/31/16 15:38 08/07/16 13:59 Morphine IVP 1 mg Q4H PRN Administration Pain, moderate (4-7) Ondansetron HCl 4 mg 08/06/16 12:19 Zofran Inj IVP ONCE PRN Nausea/Vomiting Ondansetron HCl 4 mg 08/06/16 12:24 Zofran Inj IVP Q6 PRN Nausea/Vomiting Pantoprazole Sodium 20 mg 07/31/16 07:30 08/07/16 08:18 Protonix Ec Tab PO Not Given ACB JENNIFER - Patient Studies Lab Studies: Microbiology Studies 08/06/16 16:52 MRSA Culture (Admit) - Final Naris MRSA NOT DETECTED Lab Studies 08/07/16 08/07/16 08/07/16 Range/Units 17:08 12:28 11:30 WBC (4.5-11.0) 10^3/ul RBC (3.5-6.1) 10^6/uL Hgb (12.0-16.0) gm/dL Hct (36.0-48.0) % MCV (80.0-105.0) fL MCH (25.0-35.0) pg MCHC (31.0-37.0) g/dl RDW (11.5-14.5) % Plt Count (120.0-450.0) 10^3/uL MPV (7.0-11.0) fl Gran % (50.0-68.0) % Lymph % (Auto) (22.0-35.0) % Becker % (Auto) (1.0-6.0) % Eos % (Auto) (1.5-5.0) % Baso % (Auto) (0.0-3.0) % Gran # (1.4-6.5) Lymph # (1.2-3.4) Becker # (0.1-0.6) Eos # (0.0-0.7) Baso # (0.0-2.0) K/mm3 PT (9.9-11.8) Seconds INR (0.93-1.08) APTT (23.7-30.8) Seconds pO2 31 (30-55) mm/Hg VBG pH 7.24 L (7.32-7.43) VBG pCO2 45.0 (40-60) VBG HCO3 19.3 L (21-28) mmol/l VBG Total CO2 20.7 L (22-28) mmol.L VBG O2 Sat (Calc) 57.6 (40-65) % VBG Base Excess -8.0 L (0.0-2.0) mmol/L VBG Potassium 3.8 (3.6-5.2) mmol/L Sodium 138.0 (132-148) mmol/L Chloride 115.0 H (98-107) mmol/L Glucose 92 (65-105) mg/dl Lactate 2.6 H (0.7-2.1) mmol/L FiO2 21.0 % Potassium (3.6-5.0) mmol/L Carbon Dioxide (21-33) mmol/L Anion Gap (10-20) BUN (7-21) mg/dL Creatinine (0.5-1.4) mg/dL Est GFR ( Amer) Est GFR (Non-Af Amer) Random Glucose (70-110) mg/dL Lactic Acid 2.5 H 2.7 H (0.7-2.1) mmol/L Calcium (8.4-10.5) mg/dL Phosphorus (2.5-4.5) mg/dL Magnesium (1.7-2.2) mg/dL Total Bilirubin (0.2-1.3) mg/dL AST (15-39) U/L ALT (7-56) U/L Alkaline Phosphatase (38-133) U/L Total Protein (5.8-8.3) g/dL Albumin (3.0-4.8) g/dL Globulin gm/dL Albumin/Globulin Ratio (1.1-1.8) Venous Blood Potassium 3.8 (3.6-5.2) mmol/L 08/07/16 08/07/16 08/07/16 Range/Units 11:30 11:30 11:30 WBC 18.8 H D (4.5-11.0) 10^3/ul RBC 3.54 (3.5-6.1) 10^6/uL Hgb 10.5 L (12.0-16.0) gm/dL Hct 32.8 L (36.0-48.0) % MCV 92.7 (80.0-105.0) fL MCH 29.7 (25.0-35.0) pg MCHC 32.0 (31.0-37.0) g/dl RDW 18.8 H (11.5-14.5) % Plt Count 339 (120.0-450.0) 10^3/uL MPV 9.7 (7.0-11.0) fl Gran % 85.2 H (50.0-68.0) % Lymph % (Auto) 8.9 L (22.0-35.0) % Becker % (Auto) 5.7 (1.0-6.0) % Eos % (Auto) 0.1 L (1.5-5.0) % Baso % (Auto) 0.1 (0.0-3.0) % Gran # 16.05 H (1.4-6.5) Lymph # 1.7 (1.2-3.4) Becker # 1.1 H (0.1-0.6) Eos # 0.0 (0.0-0.7) Baso # 0.01 (0.0-2.0) K/mm3 PT 15.2 H (9.9-11.8) Seconds INR 1.41 H (0.93-1.08) APTT 32.7 H (23.7-30.8) Seconds pO2 (30-55) mm/Hg VBG pH (7.32-7.43) VBG pCO2 (40-60) VBG HCO3 (21-28) mmol/l VBG Total CO2 (22-28) mmol.L VBG O2 Sat (Calc) (40-65) % VBG Base Excess (0.0-2.0) mmol/L VBG Potassium (3.6-5.2) mmol/L Sodium 139 (132-148) mmol/L Chloride 111 H (98-107) mmol/L Glucose (65-105) mg/dl Lactate (0.7-2.1) mmol/L FiO2 % Potassium 3.7 (3.6-5.0) mmol/L Carbon Dioxide 21 (21-33) mmol/L Anion Gap 11 (10-20) BUN 8 (7-21) mg/dL Creatinine 0.8 (0.5-1.4) mg/dL Est GFR ( Amer) > 60 Est GFR (Non-Af Amer) > 60 Random Glucose 89 (70-110) mg/dL Lactic Acid (0.7-2.1) mmol/L Calcium 7.6 L (8.4-10.5) mg/dL Phosphorus 3.8 (2.5-4.5) mg/dL Magnesium 1.3 L (1.7-2.2) mg/dL Total Bilirubin 0.3 (0.2-1.3) mg/dL AST 58 H (15-39) U/L ALT 29 (7-56) U/L Alkaline Phosphatase 222 H (38-133) U/L Total Protein 5.1 L (5.8-8.3) g/dL Albumin 2.3 L (3.0-4.8) g/dL Globulin 2.9 gm/dL Albumin/Globulin Ratio 0.8 L (1.1-1.8) Venous Blood Potassium (3.6-5.2) mmol/L Laboratory Results - last 24 hr 08/07/16 08/07/16 08/07/16 11:30 11:30 11:30 WBC 18.8 H D RBC 3.54 Hgb 10.5 L Hct 32.8 L MCV 92.7 MCH 29.7 MCHC 32.0 RDW 18.8 H Plt Count 339 MPV 9.7 Gran % 85.2 H Lymph % (Auto) 8.9 L Becker % (Auto) 5.7 Eos % (Auto) 0.1 L Baso % (Auto) 0.1 Gran # 16.05 H Lymph # 1.7 Becker # 1.1 H Eos # 0.0 Baso # 0.01 PT 15.2 H INR 1.41 H APTT 32.7 H pO2 VBG pH VBG pCO2 VBG HCO3 VBG Total CO2 VBG O2 Sat (Calc) VBG Base Excess VBG Potassium Sodium 139 Chloride 111 H Glucose Lactate FiO2 Potassium 3.7 Carbon Dioxide 21 Anion Gap 11 BUN 8 Creatinine 0.8 Est GFR ( Amer) > 60 Est GFR (Non-Af Amer) > 60 Random Glucose 89 Lactic Acid Calcium 7.6 L Phosphorus 3.8 Magnesium 1.3 L Total Bilirubin 0.3 AST 58 H ALT 29 Alkaline Phosphatase 222 H Total Protein 5.1 L Albumin 2.3 L Globulin 2.9 Albumin/Globulin Ratio 0.8 L Venous Blood Potassium 08/07/16 08/07/16 08/07/16 11:30 12:28 17:08 WBC RBC Hgb Hct MCV MCH MCHC RDW Plt Count MPV Gran % Lymph % (Auto) Becker % (Auto) Eos % (Auto) Baso % (Auto) Gran # Lymph # Becker # Eos # Baso # PT INR APTT pO2 31 VBG pH 7.24 L VBG pCO2 45.0 VBG HCO3 19.3 L VBG Total CO2 20.7 L VBG O2 Sat (Calc) 57.6 VBG Base Excess -8.0 L VBG Potassium 3.8 Sodium 138.0 Chloride 115.0 H Glucose 92 Lactate 2.6 H FiO2 21.0 Potassium Carbon Dioxide Anion Gap BUN Creatinine Est GFR ( Amer) Est GFR (Non-Af Amer) Random Glucose Lactic Acid 2.7 H 2.5 H Calcium Phosphorus Magnesium Total Bilirubin AST ALT Alkaline Phosphatase Total Protein Albumin Globulin Albumin/Globulin Ratio Venous Blood Potassium 3.8 Critical Care Progress Note - Nutrition Nutrition: Nutrition Category Date Time Status NPO Diet [DIET] Diets 08/05/16 Dinner Ordered Addendum Addendum: 08/07/16 19:06 patient was seen, examined and discussed with Dr. Rodas. Her note reflects my exam, assessment and plan, except as below. Meds/Labs/ONE reviewed. 86 yo s/p Cortez procedure for diverticulitis. did well overnight, hemodynamically and respiratory nevarez stable. ok to downgrade to tele. ccm time 40 min
[2016-08-07] MEDS: Benzocaine/Menthol (Cepacol) Lozenge MT PRN (16:13)
--- NOTE | 2016-08-07 16:28 | CP.PCM.CON ---
History of Present Illness - History of Present Illness History of Present Illness: Initial Nephrology Consultation: Assessment: Oliguric Acute Kidney Injury likely due to ATN due to hypotension episode yesterday hx of HTN, CAD s/p stent, CHF, HLD, Alzeheimer's dementia Diverticulitis with abscess s/p IR drainage s/p exploratory laparotomy (08/06) with sigmoid resection, washout of intra-abdominal abscess, mobilization of the splenic flexure, creation of ostomy and mucous fistula creation with B/L ureteral stent placement by Vit D def, mild lactic acidosis and hypomagnesemia Plan No acute need for renal replacement therapy at this time. continue with IVF as normal saline. repeat CXR in AM Hypertension control with meds as ordered. will d/c diovan due to recent KRIS Monitor Input/Output, daily weights and renal function with basic metabolic panel supplement electrolytes Dose meds/antibiotics for reduced GFR <10. Avoid fleets enema/magnesium based laxatives. Avoid nephrotoxins/NSAIDs/ iodinated contrast (unless needed emergently) Glycemic control Further work up for as per primary team Thanks for allowing me to participate in care of your patient. Will follow patient with you. Please call if any Qs. d/w team Dr Jhon Can Office: [phone] Chief Complaint; pain abdomen HPI: Pt is a 86 y/o F with hx of HTN, CAD s/p stents, CHF, HLD, Alzeheimer's dementia and Diverticulitis w/abscess s/p IR drainage underwent exploratory laparotomy (08/06)with sigmoid resection, washout of intra-abdominal abscess, mobilization of the splenic flexure, creation of ostomy and mucous fistula creation with B/L ureteral stent placement by [place] is seen in renal consultation as has decreased urine outpt in post-op pediod Denies chest pain, palpitation, shortness of breath, leg swelling No recent iodinated contrast exposure in last 2-3 days. episodes of low BP yesterday noted, SBP 80-90 yesterday. ROS: Constitutional Symptoms: Denies fever. No chills. Eyes: denies change in vision, denies watery eyes, denies double vision Ears/Nose/Mouth/Throat: Denies Abnormal Taste. No Bad breath or Bad Taste. Cardiovascular: No chest pain. There is no shortness of breath. No palpitations. Pulmonary: No shortness of breath or cough. Gastrointestinal: c/o abdominal pain No nausea. No vomiting. Genitourinary: None as has rocael . Neurological: Denies headaches. No dizziness. Dermatological: No Rash or Bruising or ulcers. Psychiatric: Denies Anxiety. No depression. Denies hallucinations. Rheumatological: No joint pain. Denies Joint swelling Endocrine: Denies over tiredness. Denies Fatigue and Heat/Cold Intolerance. Physical Examination: General Appearance: elderly female comfortable, in no acute respiratory distress , co-operative . Vitals reviewed and noted as below Head; Atraumatic, normocephalic ENT: no ulcers no thrush. Tongue is midline. Oropharynx: no rash or ulcers. EYES: Pupils are equal, round and reactive to light accommodation. Neck; supple no lymphadenopathy, no thyromegaly or bruit Lungs: Normal respiratory rate/effort. Breath sounds bilateral equal and clear anteriorly Heart: Normal rate. s1s2 normal. No rub or gallop. Extremities: no edema. No varicose veins Neurological: Patient is alert, awake and oriented. No focal deficit. Strength bilateral appropriate and equal Skin: Warm and dry. Normal turgor. No rash. Palpitation: Normal elasticity for age Abdomen: Abdomen is soft. has LLQ ostomy. midline dressing and MO drains+ . Psych: deferred MSK: no joint tenderness or swelling. Digits and nails normal, no deformity : kidney or bladder not palpable. has rocael Labs/imaging reviewed. Past medical history, past surgical history, family history, social history, allergy reviewed and noted as below work up: previosu imaging: normal kidneys and bladder UA: trace protein no blood Vit D <12 Mag 1.3 Past Patient History - Infectious Disease Hx of Infectious Diseases: None - Tetanus Immunizations Tetanus Immunization: Unknown - Past Medical History & Family History Past Medical History?: Yes - Past Social History Smoking Status: Never Smoked - CARDIAC Hx Congestive Heart Failure: Yes Hx Hypertension: Yes - PULMONARY Hx Respiratory Disorders: No - NEUROLOGICAL Hx Neurological Disorder: No - HEENT Hx HEENT Problems: Yes Hx Cataracts: Yes (left eye no sx) - RENAL Hx Chronic Kidney Disease: Yes Hx Kidney Stones: Yes - ENDOCRINE/METABOLIC Hx Endocrine Disorders: No - HEMATOLOGICAL/ONCOLOGICAL Hx Blood Transfusions: No Hx Blood Transfusion Reaction: No - INTEGUMENTARY Hx Dermatological Problems: Yes (BILATERAL LEG EDEMA MAINLY TO FEET MORE TO LEFT.) Other/Comment: ble skin tight/edema - MUSCULOSKELETAL/RHEUMATOLOGICAL Hx Musculoskeletal Disorders: No Hx Falls: No - GASTROINTESTINAL Hx Gastrointestinal Disorders: Yes (DIVERTICULOSIS,HEMORRHOID,GI BLEED,RECTAL BLEED) Hx Gall Bladder Disease: Yes (gallstones) Hx Gastroesophageal Reflux: Yes Other/Comment: rectal bleed - GENITOURINARY/GYNECOLOGICAL Hx Genitourinary Disorders: Yes Hx Urinary Tract Infection: Yes - PSYCHIATRIC Hx Psychophysiologic Disorder: No Hx Substance Use: No - SURGICAL HISTORY Hx Surgeries: Yes - ANESTHESIA Hx Anesthesia Reactions: Yes Hx Malignant Hyperthermia: Yes Meds Allergies/Adverse Reactions: Allergies Allergy/AdvReac Type Severity Reaction Status Date / Time No Known Allergies Allergy Verified 07/30/16 15:58 - Medications Medications: Current Medications Acetaminophen (Tylenol 160mg/5ml Oral Soln) 320 mg PO Q4 PRN PRN Reason: Fever >100.4 F Alendronate Sodium (Fosamax) 70 mg PO Q7D [facility] Last Admin: 07/31/16 10:32 Dose: 70 mg Aspirin (Ecotrin) 81 mg PO DAILY [facility] Last Admin: 08/05/16 14:12 Dose: Not Given Atorvastatin Calcium (Lipitor) 40 mg PO DIN [facility] Last Admin: 08/05/16 19:27 Dose: 40 mg Benzocaine/Menthol (Cepacol Sore Throat) 1 [place] Q2H PRN PRN Reason: Sore Throat Calcium Carbonate (Oscal) 500 mg PO DAILY [facility] Last Admin: 08/05/16 09:44 Dose: 500 mg Cholecalciferol (Vitamin D) 2,000 iu PO DAILY [facility] Last Admin: 08/06/16 17:28 Dose: Not Given Clonidine HCl (Catapres Tts1 0.1 Mg/24 Hr) 1 patch TD Q7D@1000 [facility] Docusate Sodium (Colace) 100 mg PO TID [facility] Last Admin: 08/05/16 19:26 Dose: 100 mg Donepezil HCl (Aricept) 10 mg PO HS [facility] Last Admin: 08/06/16 21:24 Dose: 10 mg Enoxaparin Sodium (Lovenox) 30 mg SC DAILY [facility] PRN Reason: Protocol Last Admin: 08/05/16 09:47 Dose: 30 mg Ferrous Sulfate (Feosol) 324 mg PO TID [facility] Last Admin: 08/07/16 14:20 Dose: Not Given Metronidazole (Flagyl) 500 mg in 100 mls @ 100 mls/hr IVPB Q8 [facility] PRN Reason: Protocol Last Admin: 08/07/16 05:33 Dose: 100 mls/hr Cefazolin Sodium (Ancef 1gm In Ns) 1 gm in 100 mls @ 100 mls/hr IVPB Q8 [facility] PRN Reason: Protocol Last Admin: 08/07/16 05:21 Dose: 100 mls/hr Fluconazole (Diflucan Iv 200 Mg/100 Ml Ns) 100 mls @ 100 mls/hr IVPB DAILY [facility] PRN Reason: Protocol Last Admin: 08/07/16 14:03 Dose: 100 mls/hr Sodium Chloride (Sodium Chloride 0.9%) 1,000 mls @ 125 mls/hr IV .Q8H [facility] Metoprolol Tartrate (Lopressor) 50 mg PO BID [facility] Last Admin: 08/06/16 17:26 Dose: Not Given Morphine Sulfate (Morphine) 1 mg IVP Q4H PRN PRN Reason: Pain, moderate (4-7) Last Admin: 08/07/16 13:59 Dose: 1 mg Ondansetron HCl (Zofran Inj) 4 mg IVP ONCE PRN PRN Reason: Nausea/Vomiting Ondansetron HCl (Zofran Inj) 4 mg IVP Q6 PRN PRN Reason: Nausea/Vomiting Pantoprazole Sodium (Protonix Ec Tab) 20 mg PO ACB [facility] Last Admin: 08/07/16 08:18 Dose: Not Given Results - Vital Signs Recent Vital Signs: Last Vital Signs Temp 98 F 08/07/16 15:57 Pulse 72 08/07/16 15:57 Resp 18 08/07/16 15:57 BP 154/72 H 08/07/16 15:57 Pulse Ox 97 08/07/16 15:57 - Labs Result Diagrams: 08/07/16 11:30 08/07/16 11:30 Labs: Laboratory Results - last 24 hr 08/07/16 08/07/16 08/07/16 11:30 11:30 11:30 WBC 18.8 H D RBC 3.54 Hgb 10.5 L Hct 32.8 L MCV 92.7 MCH 29.7 MCHC 32.0 RDW 18.8 H Plt Count 339 MPV 9.7 Gran % 85.2 H Lymph % (Auto) 8.9 L [place] % (Auto) 5.7 Eos % (Auto) 0.1 L Baso % (Auto) 0.1 Gran # 16.05 H Lymph # 1.7 [place] # 1.1 H Eos # 0.0 Baso # 0.01 PT 15.2 H INR 1.41 H APTT 32.7 H pO2 VBG pH VBG pCO2 VBG HCO3 VBG Total CO2 VBG O2 Sat (Calc) VBG Base Excess VBG Potassium Sodium 139 Chloride 111 H Glucose Lactate FiO2 Potassium 3.7 Carbon Dioxide 21 Anion Gap 11 BUN 8 Creatinine 0.8 Est GFR ( Amer) > 60 Est GFR (Non-Af Amer) > 60 Random Glucose 89 Lactic Acid Calcium 7.6 L Phosphorus 3.8 Magnesium 1.3 L Total Bilirubin 0.3 AST 58 H ALT 29 Alkaline Phosphatase 222 H Total Protein 5.1 L Albumin 2.3 L Globulin 2.9 Albumin/Globulin Ratio 0.8 L Venous Blood Potassium 08/07/16 08/07/16 11:30 12:28 WBC RBC Hgb Hct MCV MCH MCHC RDW Plt Count MPV Gran % Lymph % (Auto) [place] % (Auto) Eos % (Auto) Baso % (Auto) Gran # Lymph # [place] # Eos # Baso # PT INR APTT pO2 31 VBG pH 7.24 L VBG pCO2 45.0 VBG HCO3 19.3 L VBG Total CO2 20.7 L VBG O2 Sat (Calc) 57.6 VBG Base Excess -8.0 L VBG Potassium 3.8 Sodium 138.0 Chloride 115.0 H Glucose 92 Lactate 2.6 H FiO2 21.0 Potassium Carbon Dioxide Anion Gap BUN Creatinine Est GFR ( Amer) Est GFR (Non-Af Amer) Random Glucose Lactic Acid 2.7 H Calcium Phosphorus Magnesium Total Bilirubin AST ALT Alkaline Phosphatase Total Protein Albumin Globulin Albumin/Globulin Ratio Venous Blood Potassium 3.8
--- NOTE | 2016-08-07 17:22 | PN ---
DATE: 08/07/2016 The patient is status post abdominal surgery. The patient is in bed, sedated, without distress. PHYSICAL EXAMINATION: VITAL SIGNS: Blood pressure is 173/72, the heart rate is in the 70s. NECK: Negative JVD. LUNGS: Decreased breath sounds. HEART: Reveals S1, S2. EXTREMITIES: Without edema. The white count is 18.8, hemoglobin is 10.5. BUN and creatinine is 8 and 0.8 with a lactic acid of 2 .7. IMPRESSION: 1. Status post abdominal surgery. 2. Sepsis. 3. Stable angina. 4. History of percutaneous transluminal coronary angioplasty. 5. Pulmonary hypertension. 6. Hypercholesterolemia. Given these findings, the patient is currently on IV antibiotics. The patient's hypertension will be treated with topical clonidine. Esa Wolfe MD cc: [phone] TT: 08/07/2016 17:22:09 Confirmation # [id number] Dictation # [id number] en
--- NOTE | 2016-08-07 17:31 | CP.PCM.PN ---
Subjective - Date & Time of Evaluation Date of Evaluation: 08/07/16 Time of Evaluation: 16:30 - Subjective Subjective: Infectious Disease Follow Up: August 07, 2016 85 yo female sent to [facility] from Dr. Keita's office after discovery of purulent drainage from left lower abdominal drain site. She has a history of hypertension, GI bleed, CAD with stents, anemia, and osteoporosis. Many of her hospitalizations last year were for GI bleed. 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 She is currently on ceftriaxone and Flagyl. This will cover most recurrences of E. coli. Taken to IR by Dr. Zaldivar on Friday. 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 IR drain is still showing fecal material. E. coli in cultures of wound site. Yeast in urine cultures. Tre-colectomy yesteday with monitoring post surgery in MICU. Patient transferred to medical floor today. She makes few complaints today. Objective - Vital Signs/Intake and Output Vital Signs (last 24 hours): Temp Pulse Resp BP Pulse Ox 98 F 72 18 154/72 H 97 08/07/16 15:57 08/07/16 16:16 08/07/16 15:57 08/07/16 16:16 08/07/16 15:57 Intake and Output: 08/07/16 08/07/16 06:59 18:59 Intake Total 2200 1625 Output Total 80 100 Balance 2120 1525 - Medications Medications: Current Medications Acetaminophen (Tylenol 160mg/5ml Oral Soln) 320 mg PO Q4 PRN PRN Reason: Fever >100.4 F Aspirin (Ecotrin) 81 mg PO DAILY [facility] Last Admin: 08/07/16 16:14 Dose: Not Given Atorvastatin Calcium (Lipitor) 40 mg PO DIN [facility] Last Admin: 08/05/16 19:27 Dose: 40 mg Benzocaine/Menthol (Cepacol Sore Throat) 1 [place] MT Q2H PRN PRN Reason: Sore Throat Last Admin: 08/07/16 16:13 Dose: 1 [place]ton Calcium Carbonate (Oscal) 500 mg PO DAILY [facility] Last Admin: 08/05/16 09:44 Dose: 500 mg Cholecalciferol (Vitamin D) 2,000 iu PO DAILY [facility] Last Admin: 08/06/16 17:28 Dose: Not Given Clonidine HCl (Catapres Tts1 0.1 Mg/24 Hr) 1 patch TD Q7D@1000 [facility] Last Admin: 08/07/16 16:16 Dose: 1 patch Docusate Sodium (Colace) 100 mg PO TID [facility] Last Admin: 08/05/16 19:26 Dose: 100 mg Donepezil HCl (Aricept) 10 mg PO HS [facility] Last Admin: 08/06/16 21:24 Dose: 10 mg Enoxaparin Sodium (Lovenox) 30 mg SC DAILY [facility] PRN Reason: Protocol Last Admin: 08/05/16 09:47 Dose: 30 mg Ferrous Sulfate (Feosol) 324 mg PO TID [facility] Last Admin: 08/07/16 14:20 Dose: Not Given Metronidazole (Flagyl) 500 mg in 100 mls @ 100 mls/hr IVPB Q8 [facility] PRN Reason: Protocol Last Admin: 08/07/16 05:33 Dose: 100 mls/hr Cefazolin Sodium (Ancef 1gm In Ns) 1 gm in 100 mls @ 100 mls/hr IVPB Q8 [facility] PRN Reason: Protocol Last Admin: 08/07/16 05:21 Dose: 100 mls/hr Fluconazole (Diflucan Iv 200 Mg/100 Ml Ns) 100 mls @ 100 mls/hr IVPB DAILY [facility] PRN Reason: Protocol Last Admin: 08/07/16 14:03 Dose: 100 mls/hr Sodium Chloride (Sodium Chloride 0.9%) 1,000 mls @ 125 mls/hr IV .Q8H [facility] Metoprolol Tartrate (Lopressor) 50 mg PO BID [facility] Last Admin: 08/07/16 16:14 Dose: Not Given Morphine Sulfate (Morphine) 1 mg IVP Q4H PRN PRN Reason: Pain, moderate (4-7) Last Admin: 08/07/16 13:59 Dose: 1 mg Ondansetron HCl (Zofran Inj) 4 mg IVP ONCE PRN PRN Reason: Nausea/Vomiting Ondansetron HCl (Zofran Inj) 4 mg IVP Q6 PRN PRN Reason: Nausea/Vomiting Pantoprazole Sodium (Protonix Ec Tab) 20 mg PO ACB [facility] Last Admin: 08/07/16 08:18 Dose: Not Given - Labs Labs: 08/07/16 11:30 08/07/16 11:30 PT 15.2 Seconds (9.9-11.8) H 08/07/16 11:30 INR 1.41 (0.93-1.08) H 08/07/16 11:30 APTT 32.7 Seconds (23.7-30.8) H 08/07/16 11:30 - Constitutional Appears: Non-toxic, No Acute Distress, Chronically Ill - Head Exam Head Exam: ATRAUMATIC, NORMOCEPHALIC - Eye Exam Eye Exam: EOMI, PERRL Pupil Exam: NORMAL ACCOMODATION, PERRL - ENT Exam ENT Exam: Mucous Membranes Moist, Normal External Ear Exam, TM's Normal Bilaterally - Neck Exam Neck Exam: Full ROM, Normal Inspection - Respiratory Exam Respiratory Exam: Clear to Ausculation Bilateral, NORMAL BREATHING PATTERN. absent: Rales, Rhonchi, Wheezes - Cardiovascular Exam Cardiovascular Exam: REGULAR RHYTHM, RRR, +S1, +S2 - GI/Abdominal Exam GI & Abdominal Exam: Soft, Normal Bowel Sounds. absent: Distended, Tenderness Additional comments: colostomy in place. s/p sigmoidectomy. - Extremities Exam Extremities Exam: Full ROM, Normal Inspection - Neurological Exam Neurological Exam: Alert, Awake, CN II-XII Intact, Oriented x3 - Psychiatric Exam Psychiatric exam: Normal Affect, Normal Mood - Skin Skin Exam: Intact, Normal Color Assessment and Plan - Assessment and Plan (Free Text) Assessment: 86 yo female with intra-abdominal abscess presenting with drainage of pus. Taken by IR for drain placement. Spoke with Dr. Zaldivar in detail regarding case. He fears formation of fistula at this time. On Rocephin and Metronidazole. Last hospitalization showed VRE and E. coli growth. Supportive care with low tolerance for switching antibiotics to one such as meropenem. Current culture is showing E. coli that is sensitive to Rocephin and Ancef. On Ancef now. On Diflucan to cover yeast in the urine. New cultures taken. Supportive care. Sigmoid colectomy during exploratory laparotomy. Continue Ancef. Colostomy in place. Moved back to medical floors from MICU today. Thank you for allowing me to participate in the care of the patient, we will follow with you.
[2016-08-07] MEDS: Sodium Chloride 0.9% 1,000 ML IV SCH ×2 (17:54→18:27)
--- NOTE | 2016-08-07 18:52 | PN ---
DATE: 08/07/2016 The patient is seen on the floor. She seems very comfortable. Has some pain, but not a lot. The vi martha signs are normal. She is afebrile. Blood pressure about 150. Disturbing is the urine output is very low. She has received several boluses, recently has made 15 mL over the last hour. The IV flu ids are increased. The drainage from the left side is little bit higher than the right, 60 and 10. The white count is up to 18,000 consistent with the fact we drained an abscess, hemoglobin stable. Coags slightly elevated PT. SMA-18 showing an AST pretty stable at 58, BUN 8, creatinine 0.8, lactic acid is somewhat elevated. For now, the plan will be to hydrate her. In general, looks very well. Pathology is pending. Sony Keita MD cc: [phone] TT: 08/07/2016 18:51:57 Confirmation # [id number] Dictation # [id number] reymundo
--- NOTE | 2016-08-07 20:03 | OP ---
PROCEDURE DATE: 08/07/2016 PREOPERATIVE DIAGNOSIS: Abscess and diverticulitis with fistula. POSTOPERATIVE DIAGNOSIS: Abscess and diverticulitis with fistula. OPERATION PERFORMED: Exploratory laparotomy, resection of the descending colon, removal of the absce ss, takedown of the splenic flexure and Brad's procedure. In the operating room, the patient was identified by name, number, procedure, laterality. SURGEON: Dr. Keita BENCH MOLDER: ____ DESCRIPTION OF PROCEDURE: Ureteral catheters were placed under separate dictation through Dr. Sherin caban after the timeout, the abdomen was prepped and draped in lithotomy position using the [employer] stirrups. The abdomen was prepped and entered. The incision was enlarged. There was pretty much, ____ very few adhesions except in the flank, descending colon was a peach sized mass. It was distinct from but connected to the abscess and the drain left in place by Dr. Zaldivar. At the end, this catheter was re moved and this was replaced with a silicone drain. Going into the pelvis, there was a very redundant sigmoid and this was followed up to the mass. Transverse colon was identified and from th e omentum and there was a relatively low-lying splenic flexure and getting into the space we were abl e to mobilize it somewhat, but there were dense adhesions. The incisions were enlarged. The [employer] ter was placed and by rolling the colon towards the midline and starting inferiorly, we were able to identify the ureter which was identified by motion, its position and ureteral catheter, which was jose y helpful. Going above, we could not really see things, but we dissected along the ureter using a ri ght angle and the adhesions were eventually taken down nicely, rolling the perforated diverticulitis towards the midline. This having been done, at the point of election the distal transverse colon was divided as was the point of election in the sigmoid. ____ relatively easy anastomosis, which will b e planned for later. This is done because I do not think she would tolerate a complication and I thi nk this will be just plain safer. The GIAs were run in and fired in points of election and the mesen sarkis taken with a gentle portion of the mesentery using the Harmonic scalpel. Several stitches were placed and cautery as necessary. The distal part was brought up as a mucous fistula to the incision and the ostomy was brought out laterally at a point of election in the usual technique. It was very viable. It was sutured down with a lip. The abdomen was copiously irrigated and dried. The omentum was put in a neutral position. There was some bleeding, which was packed in the left lower quadrant but was minimal. A separate Fortino was placed on the right side going into the pelvis. Incision was closed with running #1 Novafil, tied and buried in the middle. Incision was closed with Marcaine an d damon. A pressure dressing was applied. The patient taken to recovery room and then to the ICU. Sony Keita MD cc: [phone] TT: 08/07/2016 20:02:45 sn
--- NOTE | 2016-08-08 00:19 | PN ---
DATE: 08/07/2016 ADDENDUM This is an addendum to the GI progress report dictated by Dr. Carmona, status post sigmoidectomy with col ostomy. I did discuss with Dr. Keita earlier. No documented colovesicular fistula. The patient d id have only diverticular abscess, status post drainage before. The patient continued the postop as per surgery. The patient did have a colonoscopy on 11/30/2015. Only diverticulosis was noticed in th e transverse colon. Continue the antibiotics postop as per surgery. Thank you very much for allowing us to participate in the care of the patient. Long Archuleta MD cc: [id number] TT: 08/08/2016 00:18:19 Confirmation # [id number] Dictation # [id number] dn
[2016-08-08] MEDS: Sodium Chloride 0.9% 1,000 ML IV SCH (04:21)
[2016-08-08] MEDS: metroNIDAZOLE IV 500 mg/100 ml 500 MG/100 ML BAG IVPB SCH ×3 (05:35→22:17)
[2016-08-08] MEDS: ceFAZolin 1 gm in NS 1 GM/100 ML BAG IVPB SCH ×4 (05:39→22:13)
--- NOTE | 2016-08-08 06:30 | CP.PCM.PN ---
Subjective - Date & Time of Evaluation Date of Evaluation: 08/08/16 Time of Evaluation: 06:27 - Subjective Subjective: Gen Sx: Dr Keita Pt S&E. NAEO. VSS. Afebrile. Urine output has increased, >240 over past 12 hours. Pt has minimal abdominal pain, well controlled with meds. Denies N/V, F /C. Denies appetite at this time. Uses incentive spirometer but must be coached to do so. Has not been OOB JPs 130/80 over 24 hours Objective - Vital Signs/Intake and Output Vital Signs (last 24 hours): Temp Pulse Resp BP Pulse Ox 98 F 72 18 154/72 H 97 08/07/16 15:57 08/07/16 18:07 08/07/16 15:57 08/07/16 18:07 08/07/16 15:57 Intake and Output: 08/07/16 08/08/16 18:59 06:59 Intake Total 1625 360 Output Total 100 390 Balance 1525 -30 - Medications Medications: Current Medications Acetaminophen (Tylenol 160mg/5ml Oral Soln) 320 mg PO Q4 PRN PRN Reason: Fever >100.4 F Aspirin (Ecotrin) 81 mg PO DAILY [facility] Last Admin: 08/07/16 16:14 Dose: Not Given Atorvastatin Calcium (Lipitor) 40 mg PO DIN [facility] Last Admin: 08/05/16 19:27 Dose: 40 mg Benzocaine/Menthol (Cepacol Sore Throat) 1 [place] MT Q2H PRN PRN Reason: Sore Throat Last Admin: 08/07/16 16:13 Dose: 1 burton Calcium Carbonate (Oscal) 500 mg PO DAILY [facility] Last Admin: 08/05/16 09:44 Dose: 500 mg Cholecalciferol (Vitamin D) 2,000 iu PO DAILY [facility] Last Admin: 08/06/16 17:28 Dose: Not Given Clonidine HCl (Catapres Tts1 0.1 Mg/24 Hr) 1 patch TD Q7D@1000 [facility] Last Admin: 08/07/16 16:16 Dose: 1 patch Docusate Sodium (Colace) 100 mg PO TID [facility] Last Admin: 08/05/16 19:26 Dose: 100 mg Donepezil HCl (Aricept) 10 mg PO HS [facility] Last Admin: 08/07/16 22:52 Dose: 10 mg Enoxaparin Sodium (Lovenox) 30 mg SC DAILY [facility] PRN Reason: Protocol Last Admin: 08/05/16 09:47 Dose: 30 mg Ferrous Sulfate (Feosol) 324 mg PO TID [facility] Last Admin: 08/07/16 18:07 Dose: 324 mg Metronidazole (Flagyl) 500 mg in 100 mls @ 100 mls/hr IVPB Q8 [facility] PRN Reason: Protocol Last Admin: 08/08/16 05:35 Dose: 100 mls/hr Cefazolin Sodium (Ancef 1gm In Ns) 1 gm in 100 mls @ 100 mls/hr IVPB Q8 [facility] PRN Reason: Protocol Last Admin: 08/08/16 05:39 Dose: 100 mls/hr Fluconazole (Diflucan Iv 200 Mg/100 Ml Ns) 100 mls @ 100 mls/hr IVPB DAILY [facility] PRN Reason: Protocol Last Admin: 08/07/16 14:03 Dose: 100 mls/hr Sodium Chloride (Sodium Chloride 0.9%) 1,000 mls @ 125 mls/hr IV .Q8H [facility] Last Admin: 08/08/16 04:21 Dose: 125 mls/hr Metoprolol Tartrate (Lopressor) 50 mg PO BID [facility] Last Admin: 08/07/16 18:07 Dose: 50 mg Morphine Sulfate (Morphine) 1 mg IVP Q4H PRN PRN Reason: Pain, moderate (4-7) Last Admin: 08/07/16 13:59 Dose: 1 mg Ondansetron HCl (Zofran Inj) 4 mg IVP ONCE PRN PRN Reason: Nausea/Vomiting Ondansetron HCl (Zofran Inj) 4 mg IVP Q6 PRN PRN Reason: Nausea/Vomiting Pantoprazole Sodium (Protonix Ec Tab) 20 mg PO ACB [facility] Last Admin: 08/07/16 08:18 Dose: Not Given - Labs Labs: 08/07/16 11:30 08/07/16 11:30 PT 15.2 Seconds (9.9-11.8) H 08/07/16 11:30 INR 1.41 (0.93-1.08) H 08/07/16 11:30 APTT 32.7 Seconds (23.7-30.8) H 05/24/17 11:30 - Constitutional Appears: No Acute Distress - ENT Exam ENT Exam: Normal Exam - Respiratory Exam Respiratory Exam: absent: Accessory Muscle Use, Respiratory Distress - Cardiovascular Exam Cardiovascular Exam: REGULAR RHYTHM - GI/Abdominal Exam GI & Abdominal Exam: Soft, Tenderness (post-surgical). absent: Distended, Firm , Guarding, Rigid Additional comments: ostomy pink and viable, no output dressing c/d/i - Neurological Exam Neurological Exam: Alert, Awake - Psychiatric Exam Psychiatric exam: Normal Affect, Normal Mood Assessment and Plan - Assessment and Plan (Free Text) Assessment: 86F POD#2 s/p Brad's for diverticulitis Plan: urine output increased, cont gentle hydration maintain NPO until output in ostomy pt can benefit from PT continue to encourage incentive spirometer will dElroyw Dr Bossman Brambila, DO, PGY2
[2016-08-08 07:02] LABS: ADD MANUAL DIFF? NO
[2016-08-08 07:11] LABS: BASO # 0.01 K/mm3 (0.0-2.0); BASO % 0.1 % (0.0-3.0); EOS % 0.1 % (1.5-5.0); GRAN # 11.72 (1.4-6.5); GRAN % 83.3 % (50.0-68.0); HEMATOCRIT 27.6 % (36.0-48.0); LYMPH # 1.2 (1.2-3.4); LYMPH % 8.8 % (22.0-35.0); MEAN CELL VOLUME 91.4 fL (80.0-105.0); MEAN CORPUSCULAR HEMOGLOBIN 29.5 pg (25.0-35.0); MEAN CORPUSCULAR HGB CONC 32.2 g/dl (31.0-37.0); MEAN PLATELET VOLUME 9.3 fl (7.0-11.0); MONO # 1.1 (0.1-0.6); MONO % 7.7 % (1.0-6.0); PLATELET COUNT 304 10^3/uL (120.0-450.0); RED CELL DISTRIBUTION WIDTH 18.9 % (11.5-14.5); WHITE BLOOD COUNT 14.1 10^3/ul (4.5-11.0)
[2016-08-08 07:53] LABS: ALB/GLOB RATIO 0.7 (1.1-1.8); ALKALINE PHOSPHATASE 197 U/L (38-133); ALT/SGPT 29 U/L (7-56); AST/SGOT 35 U/L (15-39); BILIRUBIN,TOTAL 0.3 mg/dL (0.2-1.3); BLOOD UREA NITROGEN 10 mg/dL (7-21); CALCIUM 7.5 mg/dL (8.4-10.5); CARBON DIOXIDE 20 mmol/L (21-33); CHLORIDE 114 mmol/L (98-107); GFR AFRICAN-AMERICAN > 60; GLUCOSE,RANDOM 85 mg/dL (70-110); POTASSIUM 3.9 mmol/L (3.6-5.0); SODIUM 139 mmol/L (132-148); TOTAL PROTEIN 4.5 g/dL (5.8-8.3)
[2016-08-08] MEDS: Enoxaparin 30 mg Syringe SC SCH (10:07)
[2016-08-08] MEDS: Fluconazole IV 200mg/100 ml NS 100 ML IVPB SCH (10:07)
[2016-08-08] MEDS: Benzocaine/Menthol (Cepacol) Lozenge MT PRN ×2 (10:10→19:00)
[2016-08-08] MEDS: Pantoprazole 20 mg EC Tab PO SCH (10:12)
[2016-08-08] MEDS: Acetaminophen 650mg/20.3ml solution UD PO PRN (10:30)
--- NOTE | 2016-08-08 11:00 | RAD ---
PROCEDURE: CHEST RADIOGRAPH, 1 VIEW HISTORY: evaluate for pulmonary congestion COMPARISON: 07/30/2016 FINDINGS: LUNGS: Increasing infiltrate at left lung base PLEURA: No pneumothorax or pleural fluid seen. CARDIOVASCULAR: Mild cardiomegaly. There is increasing vascular congestion. There is an infiltrate at the left lung base OSSEOUS STRUCTURES: No significant abnormalities. VISUALIZED UPPER ABDOMEN: Normal. OTHER FINDINGS: None. IMPRESSION: Increasing vascular congestion and increasing infiltrate at left lung base
[2016-08-08] MEDS: Dextrose 5%/0.45% NS 1,000 ML IV SCH (14:15)
[2016-08-08] MEDS ORDERED: Dextrose 5%/0.45% NS 1,000 ML IV SCH (14:30)
--- NOTE | 2016-08-08 15:44 | CP.PCM.PN ---
Subjective - Date & Time of Evaluation Date of Evaluation: 08/08/16 Time of Evaluation: 11:45 - Subjective Subjective: Nephrology Consultation: Assessment: Oliguric Acute Kidney Injury likely due to ATN due to hypotension episode hx of HTN, CAD s/p stent, CHF, HLD, Alzeheimer's dementia Diverticulitis with abscess s/p IR drainage s/p exploratory laparotomy (08/06) with sigmoid resection, washout of intra-abdominal abscess, mobilization of the splenic flexure, creation of ostomy and mucous fistula creation with B/L ureteral stent placement by Vit D def, mild lactic acidosis and hypomagnesemia Plan No acute need for renal replacement therapy at this time. serum creatinine platued. hope to see improvement in her urine output in next 24-48 hours. pulm congestion on CXR, gentle hydration for now Hypertension control with meds as ordered. d/c diovan due to recent KRIS. will add PRN hydralazine too ordered renal sono, UA and urine Na/creat. Monitor Input/Output, daily weights and renal function with basic metabolic panel supplement electrolytes Dose meds/antibiotics for reduced GFR <10. Avoid fleets enema/magnesium based laxatives. Avoid nephrotoxins/NSAIDs/ iodinated contrast (unless needed emergently) Glycemic control Further work up for as per primary team Thanks for allowing me to participate in care of your patient. Will follow patient with you. Please call if any Qs. d/w team Dr Jhon Can Office: [phone] HPI: Pt is a 86 y/o F with hx of HTN, CAD s/p stents, CHF, HLD, Alzeheimer's dementia and Diverticulitis w/abscess s/p IR drainage underwent exploratory laparotomy (08/06)with sigmoid resection, washout of intra-abdominal abscess, mobilization of the splenic flexure, creation of ostomy and mucous fistula creation with B/L ureteral stent placement by [place] is seen in renal consultation as has decreased urine outpt in post-op period. episodes of low BP post-op, SBP 80-90 Subjective: pt not much communicative today. Physical Examination: General Appearance: elderly female comfortable, in no acute respiratory distress , co-operative . Vitals reviewed and noted as below. BP elevated Lungs: Normal respiratory rate/effort. Breath sounds bilateral decreased at bases Heart: Normal rate. s1s2 normal. No rub or gallop. Extremities: no edema. No varicose veins Neurological: Patient is alert but not much communicative today Abdomen: Abdomen is soft. has LLQ ostomy. midline dressing and MO drains+ . : kidney or bladder not palpable. has cote Labs/imaging reviewed. Past medical history, past surgical history, family history, social history, allergy reviewed and noted as below work up: previosu imaging: normal kidneys and bladder UA: trace protein no blood Vit D <12 Mag 1.3 Urine Na 40 Objective - Vital Signs/Intake and Output Vital Signs (last 24 hours): Temp Pulse Resp BP Pulse Ox 99.2 F 71 18 173/86 H 100 08/08/16 07:26 08/08/16 10:08 08/08/16 07:26 08/08/16 10:08 08/08/16 07:26 Intake and Output: 08/08/16 08/08/16 06:59 18:59 Intake Total 360 Output Total 390 Balance -30 - Medications Medications: Current Medications Acetaminophen (Tylenol 650mg/20.3ml Solution Ud) 320 mg PO Q4 PRN PRN Reason: Fever >100.4 F Aspirin (Ecotrin) 81 mg PO DAILY [facility] Last Admin: 08/08/16 10:09 Dose: 81 mg Atorvastatin Calcium (Lipitor) 40 mg PO DIN [facility] Last Admin: 08/05/16 19:27 Dose: 40 mg Benzocaine/Menthol (Cepacol Sore Throat) 1 [place] MT Q2H PRN PRN Reason: Sore Throat Last Admin: 08/08/16 10:10 Dose: 1 burton Calcium Carbonate (Oscal) 500 mg PO DAILY [facility] Last Admin: 08/08/16 10:09 Dose: 500 mg Cholecalciferol (Vitamin D) 2,000 iu PO DAILY [facility] Last Admin: 08/08/16 10:09 Dose: 2,000 iu Clonidine HCl (Catapres Tts1 0.1 Mg/24 Hr) 1 patch TD Q7D@1000 [facility] Last Admin: 08/07/16 16:16 Dose: 1 patch Docusate Sodium (Colace) 100 mg PO TID [facility] Last Admin: 08/08/16 10:09 Dose: 100 mg Donepezil HCl (Aricept) 10 mg PO HS [facility] Last Admin: 08/07/16 22:52 Dose: 10 mg Enoxaparin Sodium (Lovenox) 30 mg SC DAILY [facility] PRN Reason: Protocol Last Admin: 08/08/16 10:07 Dose: 30 mg Ferrous Sulfate (Feosol) 324 mg PO TID [facility] Last Admin: 08/08/16 10:09 Dose: 324 mg Metronidazole (Flagyl) 500 mg in 100 mls @ 100 mls/hr IVPB Q8 [facility] PRN Reason: Protocol Last Admin: 08/08/16 05:35 Dose: 100 mls/hr Cefazolin Sodium (Ancef 1gm In Ns) 1 gm in 100 mls @ 100 mls/hr IVPB Q8 [facility] PRN Reason: Protocol Last Admin: 08/08/16 05:39 Dose: 100 mls/hr Fluconazole (Diflucan Iv 200 Mg/100 Ml Ns) 100 mls @ 100 mls/hr IVPB DAILY [facility] PRN Reason: Protocol Last Admin: 08/08/16 10:07 Dose: 100 mls/hr Dextrose/Sodium Chloride (Dextrose 5%/0.45% Ns 1000 Ml) 1,000 mls @ 100 mls/hr IV .Q10H [facility] Metoprolol Tartrate (Lopressor) 50 mg PO BID [facility] Last Admin: 08/08/16 10:08 Dose: 50 mg Morphine Sulfate (Morphine) 1 mg IVP Q4H PRN PRN Reason: Pain, moderate (4-7) Last Admin: 08/07/16 13:59 Dose: 1 mg Ondansetron HCl (Zofran Inj) 4 mg IVP ONCE PRN PRN Reason: Nausea/Vomiting Ondansetron HCl (Zofran Inj) 4 mg IVP Q6 PRN PRN Reason: Nausea/Vomiting Pantoprazole Sodium (Protonix Ec Tab) 20 mg PO ACB [facility] Last Admin: 08/08/16 10:12 Dose: 20 mg - Labs Labs: 08/08/16 06:30 08/08/16 06:30 PT 15.2 Seconds (9.9-11.8) H 08/07/16 11:30 INR 1.41 (0.93-1.08) H 08/07/16 11:30 APTT 32.7 Seconds (23.7-30.8) H 08/07/16 11:30
--- NOTE | 2016-08-08 15:53 | CP.PCM.PN ---
<Jess Wilkerson - Last Filed: 08/08/16 22:23> Subjective - Date & Time of Evaluation Date of Evaluation: 08/08/16 Time of Evaluation: 07:40 - Subjective Subjective: Medicine progress note for Dr Diaz and Dr Zuniga service. Patient was stable overnight. UO improved slightly, but still poor compared to amount of fluid giving. Afebrile. Denies nausea or vomiting. C/o abdominal soreness. Objective - Vital Signs/Intake and Output Vital Signs (last 24 hours): Temp Pulse Resp BP Pulse Ox 99.2 F 71 18 173/86 H 100 08/08/16 07:26 08/08/16 10:08 08/08/16 07:26 08/08/16 10:08 08/08/16 07:26 Intake and Output: 08/08/16 08/08/16 06:59 18:59 Intake Total 360 Output Total 390 Balance -30 - Medications Medications: Current Medications Acetaminophen (Tylenol 650mg/20.3ml Solution Ud) 320 mg PO Q4 PRN PRN Reason: Fever >100.4 F Aspirin (Ecotrin) 81 mg PO DAILY [facility] Last Admin: 08/08/16 10:09 Dose: 81 mg Atorvastatin Calcium (Lipitor) 40 mg PO DIN [facility] Last Admin: 08/05/16 19:27 Dose: 40 mg Benzocaine/Menthol (Cepacol Sore Throat) 1 [place] MT Q2H PRN PRN Reason: Sore Throat Last Admin: 08/08/16 10:10 Dose: 1 burton Calcium Carbonate (Oscal) 500 mg PO DAILY [facility] Last Admin: 08/08/16 10:09 Dose: 500 mg Cholecalciferol (Vitamin D) 2,000 iu PO DAILY [facility] Last Admin: 08/08/16 10:09 Dose: 2,000 iu Clonidine HCl (Catapres Tts1 0.1 Mg/24 Hr) 1 patch TD Q7D@1000 [facility] Last Admin: 08/07/16 16:16 Dose: 1 patch Docusate Sodium (Colace) 100 mg PO TID [facility] Last Admin: 08/08/16 10:09 Dose: 100 mg Donepezil HCl (Aricept) 10 mg PO HS [facility] Last Admin: 08/07/16 22:52 Dose: 10 mg Enoxaparin Sodium (Lovenox) 30 mg SC DAILY [facility] PRN Reason: Protocol Last Admin: 08/08/16 10:07 Dose: 30 mg Ferrous Sulfate (Feosol) 324 mg PO TID [facility] Last Admin: 08/08/16 10:09 Dose: 324 mg Hydralazine HCl (Apresoline) 10 mg IVP Q6 PRN PRN Reason: Other Metronidazole (Flagyl) 500 mg in 100 mls @ 100 mls/hr IVPB Q8 [facility] PRN Reason: Protocol Last Admin: 08/08/16 05:35 Dose: 100 mls/hr Cefazolin Sodium (Ancef 1gm In Ns) 1 gm in 100 mls @ 100 mls/hr IVPB Q8 [facility] PRN Reason: Protocol Last Admin: 08/08/16 05:39 Dose: 100 mls/hr Fluconazole (Diflucan Iv 200 Mg/100 Ml Ns) 100 mls @ 100 mls/hr IVPB DAILY [facility] PRN Reason: Protocol Last Admin: 08/08/16 10:07 Dose: 100 mls/hr Dextrose/Sodium Chloride (Dextrose 5%/0.45% Ns 1000 Ml) 1,000 mls @ 75 mls/hr IV .[id number] [facility] Metoprolol Tartrate (Lopressor) 50 mg PO BID [facility] Last Admin: 08/08/16 10:08 Dose: 50 mg Morphine Sulfate (Morphine) 1 mg IVP Q4H PRN PRN Reason: Pain, moderate (4-7) Last Admin: 08/07/16 13:59 Dose: 1 mg Ondansetron HCl (Zofran Inj) 4 mg IVP ONCE PRN PRN Reason: Nausea/Vomiting Ondansetron HCl (Zofran Inj) 4 mg IVP Q6 PRN PRN Reason: Nausea/Vomiting Pantoprazole Sodium (Protonix Ec Tab) 20 mg PO ACB [facility] Last Admin: 08/08/16 10:12 Dose: 20 mg - Labs Labs: 08/08/16 06:30 08/08/16 06:30 PT 15.2 Seconds (9.9-11.8) H 08/07/16 11:30 INR 1.41 (0.93-1.08) H 08/07/16 11:30 APTT 32.7 Seconds (23.7-30.8) H 08/07/16 11:30 - Constitutional Appears: No Acute Distress, Cachectic, Chronically Ill - Head Exam Head Exam: ATRAUMATIC, NORMAL INSPECTION, NORMOCEPHALIC - Eye Exam Eye Exam: Normal appearance - ENT Exam ENT Exam: Mucous Membranes Moist - Neck Exam Neck Exam: Normal Inspection - Respiratory Exam Respiratory Exam: Rales, NORMAL BREATHING PATTERN. absent: Clear to Ausculation Bilateral, Prolonged Expiratory Phase, Respiratory Distress - Cardiovascular Exam Cardiovascular Exam: REGULAR RHYTHM, RRR, +S1, +S2, Murmur. absent: Gallop, Irregular Rhythm - GI/Abdominal Exam GI & Abdominal Exam: Soft, Tenderness, Hypoactive Bowel Sounds. absent: Distended, Rigid Additional comments: ostomy with no output, pedro luis drains with serosanguinous fluid, midline incision intact. - Extremities Exam Extremities Exam: Pedal Edema - Neurological Exam Neurological Exam: Alert, Awake, Oriented x3 - Psychiatric Exam Psychiatric exam: Anxious, Depressed - Skin Skin Exam: Dry, Normal Color, Warm Assessment and Plan - Assessment and Plan (Free Text) Assessment: Patient is an 86 y/o with PMH of HTN, CAD s/p stents, CHF, HLD, Alzeheimer's dementia, h/o cholecystectomy, Diverticulitis admitted with intraabdominal abscess with cutaneous fistula s/p IR drain placement day # 7, s/p sigmoid resection with colostomy mucous fistula POD# 1. Patient is currently oliguric. Plan: 1) Diverticulitis with intra-abdominal abscess with cutaneous fistula - s/p IR drain placement day # 8, - s/p sigmoid resection with colostomy mucous fistula POD# 2. - Post operative wound care as per surgery - Pain control with morphine and Tylenol prn - IS, OOBTC - ivf changed to d51/2ns@75 cc/hr - Intra-abdominal abscess grew ecoli. - On Ancef, diflucan and flagyl. - Diet as per surgery- currently npo untill output from ostomy. 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 - UO of 20cc/hr overnight, - will reduce fluid rate due to pulm congestion on chest x-ray. - strict I&Os. - Avoid NSAIDs. 3) Malnutrition with anasarca - s/p albumin - [place] [place] referral - npo as per surgery. 4) leukocytosis -trending down - will monitor on antibiotics. - ID following 5) Elevated lactic acid likely 2nd to hypoperfusion. - continue IVF. - trended down. 6) Normocytic anemia - s/p 2 units prbc this admission - h/h dropped likely dilution from multiple fluid boluses patient received. will monitor. 7) h/o CAD - continue asa, Lipitor, and Lopressor. - diovan d/c due to renal function. hydralazine prn for htn 8) Transaminitis-will continue to trend. 9) Hypomagnesium-s/p repletion 10) Vitamin D deficiency - cnpo, holding off po meds 11) h/o osteoporosis - will d/c alendronate due to renal function. 12) Dementia- aricept on hold 13) DVT prophylaxis: Lovenox and protonix. 14) Dispo- pending post op. Patient, seen, examined, and case discussed with Dr Zuniga. <Aubrey Zuniga - Last Filed: 08/29/16 18:46> Objective - Vital Signs/Intake and Output Vital Signs (last 24 hours): Temp Pulse Resp BP Pulse Ox 95 F L 42 L 36 H 95/57 L 96 08/17/16 12:00 08/17/16 20:00 08/17/16 20:00 08/17/16 19:00 08/17/16 20:30 - Labs Labs: 08/17/16 05:00 08/17/16 05:00 PT 12.3 Seconds (9.9-11.8) H 08/15/16 14:50 INR 1.14 (0.93-1.08) H 08/15/16 14:50 APTT 34.8 Seconds (23.7-30.8) H 08/15/16 14:50 Attending/Attestation - Attestation I have personally seen and examined this patient.: Yes I have fully participated in the care of the patient.: Yes I have reviewed all pertinent clinical information, including history, physical exam and plan: Yes Notes (Text): 08/29/16 18:46 Medical record note made by the resident after discussion with my direction and input after the patient was personally seen and examined by me. I have reviewed the chart and agree that the record accurately reflects by personal performance of the history, physical exam, data review, and medical decision-making, in the course for the patient. I have also personally directed the plan of care.
--- NOTE | 2016-08-08 16:48 | CP.PCM.PN ---
Subjective - Date & Time of Evaluation Date of Evaluation: 08/08/16 Time of Evaluation: 09:40 - Subjective Subjective: Seen and examined at bedside earlier today. No N/V, get abdominal discomfort but not now. No fever or chills. Objective - Vital Signs/Intake and Output Vital Signs (last 24 hours): Temp Pulse Resp BP Pulse Ox 99.2 F 71 18 173/86 H 100 08/08/16 07:26 08/08/16 10:08 08/08/16 07:26 08/08/16 10:08 08/08/16 07:26 Intake and Output: 08/08/16 08/08/16 06:59 18:59 Intake Total 360 Output Total 390 Balance -30 - Medications Medications: Current Medications Acetaminophen (Tylenol 650mg/20.3ml Solution Ud) 320 mg PO Q4 PRN PRN Reason: Fever >100.4 F Aspirin (Ecotrin) 81 mg PO DAILY [facility] Last Admin: 08/08/16 10:09 Dose: 81 mg Atorvastatin Calcium (Lipitor) 40 mg PO DIN [facility] Last Admin: 08/05/16 19:27 Dose: 40 mg Benzocaine/Menthol (Cepacol Sore Throat) 1 [place] MT Q2H PRN PRN Reason: Sore Throat Last Admin: 08/08/16 10:10 Dose: 1 [place]ton Calcium Carbonate (Oscal) 500 mg PO DAILY [facility] Last Admin: 08/08/16 10:09 Dose: 500 mg Cholecalciferol (Vitamin D) 2,000 iu PO DAILY [facility] Last Admin: 08/08/16 10:09 Dose: 2,000 iu Clonidine HCl (Catapres Tts1 0.1 Mg/24 Hr) 1 patch TD Q7D@1000 [facility] Last Admin: 08/07/16 16:16 Dose: 1 patch Docusate Sodium (Colace) 100 mg PO TID [facility] Last Admin: 08/08/16 10:09 Dose: 100 mg Donepezil HCl (Aricept) 10 mg PO HS [facility] Last Admin: 08/07/16 22:52 Dose: 10 mg Enoxaparin Sodium (Lovenox) 30 mg SC DAILY [facility] PRN Reason: Protocol Last Admin: 08/08/16 10:07 Dose: 30 mg Ferrous Sulfate (Feosol) 324 mg PO TID [facility] Last Admin: 08/08/16 10:09 Dose: 324 mg Hydralazine HCl (Apresoline) 10 mg IVP Q6 PRN PRN Reason: Other Metronidazole (Flagyl) 500 mg in 100 mls @ 100 mls/hr IVPB Q8 [facility] PRN Reason: Protocol Last Admin: 08/08/16 05:35 Dose: 100 mls/hr Cefazolin Sodium (Ancef 1gm In Ns) 1 gm in 100 mls @ 100 mls/hr IVPB Q8 [facility] PRN Reason: Protocol Last Admin: 08/08/16 05:39 Dose: 100 mls/hr Fluconazole (Diflucan Iv 200 Mg/100 Ml Ns) 100 mls @ 100 mls/hr IVPB DAILY [facility] PRN Reason: Protocol Last Admin: 08/08/16 10:07 Dose: 100 mls/hr Dextrose/Sodium Chloride (Dextrose 5%/0.45% Ns 1000 Ml) 1,000 mls @ 75 mls/hr IV .[id number] [facility] Metoprolol Tartrate (Lopressor) 50 mg PO BID [facility] Last Admin: 08/08/16 10:08 Dose: 50 mg Morphine Sulfate (Morphine) 1 mg IVP Q4H PRN PRN Reason: Pain, moderate (4-7) Last Admin: 08/07/16 13:59 Dose: 1 mg Ondansetron HCl (Zofran Inj) 4 mg IVP ONCE PRN PRN Reason: Nausea/Vomiting Ondansetron HCl (Zofran Inj) 4 mg IVP Q6 PRN PRN Reason: Nausea/Vomiting Pantoprazole Sodium (Protonix Ec Tab) 20 mg PO ACB [facility] Last Admin: 08/08/16 10:12 Dose: 20 mg - Labs Labs: 08/08/16 06:30 08/08/16 06:30 PT 15.2 Seconds (9.9-11.8) H 08/07/16 11:30 INR 1.41 (0.93-1.08) H 08/07/16 11:30 APTT 32.7 Seconds (23.7-30.8) H 08/07/16 11:30 - Constitutional Appears: No Acute Distress - Head Exam Head Exam: NORMOCEPHALIC - Eye Exam Eye Exam: PERRL. absent: Scleral icterus - ENT Exam ENT Exam: Mucous Membranes Moist - Neck Exam Neck Exam: Normal Inspection - Respiratory Exam Respiratory Exam: Clear to Ausculation Bilateral, NORMAL BREATHING PATTERN. absent: Rales, Wheezes, Respiratory Distress - Cardiovascular Exam Cardiovascular Exam: +S1, +S2 - GI/Abdominal Exam GI & Abdominal Exam: Soft, Normal Bowel Sounds Additional comments: surgical site dry and intact, ostomy no stool yet, old blood minimal, drains in place, site intact. - Extremities Exam Extremities Exam: absent: Calf Tenderness - Neurological Exam Neurological Exam: Alert, Awake, Oriented x3 - Skin Skin Exam: Dry, Warm Assessment and Plan - Assessment and Plan (Free Text) Assessment: ASSESSMENT: LLQ intraabdominal abscess and colovesicular fistula s/p Ex lap Sigmoidectomy with ostomy KRIS Transeminitis, trending down Anemia CAD, s/p stent PLAN: clear liquid, diet as per surgery Monitor ostomy output trend lft on IV antibiotics PPI DVT prophylaxsis as per surgery renal eval Seen and discussed with Dr. Archuleta
--- NOTE | 2016-08-09 01:08 | CP.PCM.PN ---
Subjective - Date & Time of Evaluation Date of Evaluation: 08/08/16 Time of Evaluation: 23:15 - Subjective Subjective: Infectious Disease Follow Up: August 08, 2016 85 yo female sent to [facility] from Dr. Keita's office after discovery of purulent drainage from left lower abdominal drain site. She has a history of hypertension, GI bleed, CAD with stents, anemia, and osteoporosis. Many of her hospitalizations last year were for GI bleed. 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 She is currently on ceftriaxone and Flagyl. This will cover most recurrences of E. coli. Taken to IR by Dr. Zaldivar on Friday. 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 IR drain is still showing fecal material. E. coli in cultures of wound site. Yeast in urine cultures. Tre-colectomy yesteday with monitoring post surgery in MICU. Patient transferred to medical floor today. She makes few complaints today. Low urine output. Objective - Vital Signs/Intake and Output Vital Signs (last 24 hours): Temp Pulse Resp BP Pulse Ox 99.5 F 76 16 172/78 H 98 08/08/16 20:15 08/08/16 20:15 08/08/16 20:15 08/08/16 20:15 08/08/16 20:15 Intake and Output: 08/08/16 08/09/16 18:59 06:59 Intake Total 0 Output Total 390 350 Balance -390 -350 - Medications Medications: Current Medications Acetaminophen (Tylenol 650mg/20.3ml Solution Ud) 320 mg PO Q4 PRN PRN Reason: Fever >100.4 F Last Admin: 08/08/16 10:30 Dose: 320 mg Aspirin (Ecotrin) 81 mg PO DAILY [facility] Last Admin: 08/08/16 10:09 Dose: 81 mg Atorvastatin Calcium (Lipitor) 40 mg PO DIN [facility] Last Admin: 08/05/16 19:27 Dose: 40 mg Benzocaine/Menthol (Cepacol Sore Throat) 1 [place] MT Q2H PRN PRN Reason: Sore Throat Last Admin: 08/08/16 10:10 Dose: 1 burton Calcium Carbonate (Oscal) 500 mg PO DAILY [facility] Last Admin: 08/08/16 10:09 Dose: 500 mg Cholecalciferol (Vitamin D) 2,000 iu PO DAILY [facility] Last Admin: 08/08/16 10:09 Dose: 2,000 iu Clonidine HCl (Catapres Tts1 0.1 Mg/24 Hr) 1 patch TD Q7D@1000 [facility] Last Admin: 08/07/16 16:16 Dose: 1 patch Docusate Sodium (Colace) 100 mg PO TID [facility] Last Admin: 08/08/16 15:01 Dose: Not Given Donepezil HCl (Aricept) 10 mg PO HS [facility] Last Admin: 08/08/16 22:13 Dose: 10 mg Enoxaparin Sodium (Lovenox) 30 mg SC DAILY [facility] PRN Reason: Protocol Last Admin: 08/08/16 10:07 Dose: 30 mg Ferrous Sulfate (Feosol) 324 mg PO TID [facility] Last Admin: 08/08/16 15:01 Dose: Not Given Hydralazine HCl (Apresoline) 10 mg IVP Q6 PRN PRN Reason: Other Last Admin: 08/08/16 17:11 Dose: 10 mg Metronidazole (Flagyl) 500 mg in 100 mls @ 100 mls/hr IVPB Q8 [facility] PRN Reason: Protocol Last Admin: 08/08/16 22:17 Dose: 100 mls/hr Cefazolin Sodium (Ancef 1gm In Ns) 1 gm in 100 mls @ 100 mls/hr IVPB Q8 [facility] PRN Reason: Protocol Last Admin: 08/08/16 22:13 Dose: 100 mls/hr Fluconazole (Diflucan Iv 200 Mg/100 Ml Ns) 100 mls @ 100 mls/hr IVPB DAILY [facility] PRN Reason: Protocol Last Admin: 08/08/16 10:07 Dose: 100 mls/hr Dextrose/Sodium Chloride (Dextrose 5%/0.45% Ns 1000 Ml) 1,000 mls @ 75 mls/hr IV .[id number] [facility] Last Admin: 08/08/16 14:15 Dose: 75 mls/hr Metoprolol Tartrate (Lopressor) 50 mg PO BID [facility] Last Admin: 08/08/16 10:08 Dose: 50 mg Morphine Sulfate (Morphine) 1 mg IVP Q4H PRN PRN Reason: Pain, moderate (4-7) Last Admin: 08/07/16 13:59 Dose: 1 mg Ondansetron HCl (Zofran Inj) 4 mg IVP ONCE PRN PRN Reason: Nausea/Vomiting Ondansetron HCl (Zofran Inj) 4 mg IVP Q6 PRN PRN Reason: Nausea/Vomiting Pantoprazole Sodium (Protonix Ec Tab) 20 mg PO ACB [facility] Last Admin: 08/08/16 10:12 Dose: 20 mg - Labs Labs: 08/08/16 06:30 08/08/16 06:30 PT 15.2 Seconds (9.9-11.8) H 08/07/16 11:30 INR 1.41 (0.93-1.08) H 08/07/16 11:30 APTT 32.7 Seconds (23.7-30.8) H 08/07/16 11:30 - Constitutional Appears: Non-toxic, No Acute Distress, Chronically Ill - Head Exam Head Exam: ATRAUMATIC, NORMOCEPHALIC - Eye Exam Eye Exam: EOMI, PERRL Pupil Exam: NORMAL ACCOMODATION, PERRL - ENT Exam ENT Exam: Mucous Membranes Moist, Normal External Ear Exam, TM's Normal Bilaterally - Neck Exam Neck Exam: Full ROM, Normal Inspection - Respiratory Exam Respiratory Exam: Clear to Ausculation Bilateral, NORMAL BREATHING PATTERN. absent: Rales, Rhonchi, Wheezes - Cardiovascular Exam Cardiovascular Exam: REGULAR RHYTHM, RRR, +S1, +S2 - GI/Abdominal Exam GI & Abdominal Exam: Soft, Normal Bowel Sounds. absent: Distended, Tenderness Additional comments: colostomy in place. s/p sigmoidectomy. - Extremities Exam Extremities Exam: Full ROM, Normal Inspection - Neurological Exam Neurological Exam: Alert, Awake, CN II-XII Intact, Oriented x3 - Psychiatric Exam Psychiatric exam: Normal Affect, Normal Mood - Skin Skin Exam: Intact, Normal Color Assessment and Plan - Assessment and Plan (Free Text) Assessment: 86 yo female with intra-abdominal abscess presenting with drainage of pus. Taken by IR for drain placement. Spoke with Dr. Zaldivar in detail regarding case. He fears formation of fistula at this time. On Rocephin and Metronidazole. Last hospitalization showed VRE and E. coli growth. Supportive care with low tolerance for switching antibiotics to one such as meropenem. Current culture is showing E. coli that is sensitive to Rocephin and Ancef. On Ancef now. On Diflucan to cover yeast in the urine. New cultures taken. Supportive care. Sigmoid colectomy during exploratory laparotomy. Continue Ancef. Colostomy in place. On medical floor. Thank you for allowing me to participate in the care of the patient, we will follow with you.
--- NOTE | 2016-08-09 01:57 | PN ---
DATE: 08/08/2016 ADDENDUM: This is an addendum to the GI progress report dictated by Arina Guerrero APN. Patient with perforated diverticulum with an abscess status post drainage, who underwent a sigmoid colon resection, Brad's procedure with colostomy. Continue the antibiotics as per ID. Continue the present management , the surgical management. Thank you for allowing us to participate in the care of the patient. Long Archuleta MD cc: [id number] TT: 08/09/2016 01:57:24 Confirmation # [id number] Dictation # [id number] adelina KIRK
[2016-08-09] MEDS: ceFAZolin 1 gm in NS 1 GM/100 ML BAG IVPB SCH (06:16)
[2016-08-09] MEDS: metroNIDAZOLE IV 500 mg/100 ml 500 MG/100 ML BAG IVPB SCH ×3 (06:17→22:40)
[2016-08-09] MEDS: Pantoprazole 20 mg EC Tab PO SCH (07:49)
[2016-08-09 08:06] LABS: ADD MANUAL DIFF? NO
[2016-08-09 08:13] LABS: BASO # 0.01 K/mm3 (0.0-2.0); BASO % 0.1 % (0.0-3.0); EOS % 0.1 % (1.5-5.0); GRAN # 13.15 (1.4-6.5); GRAN % 84.8 % (50.0-68.0); HEMATOCRIT 28.6 % (36.0-48.0); LYMPH # 1.5 (1.2-3.4); LYMPH % 9.5 % (22.0-35.0); MEAN CELL VOLUME 91.4 fL (80.0-105.0); MEAN CORPUSCULAR HEMOGLOBIN 29.7 pg (25.0-35.0); MEAN CORPUSCULAR HGB CONC 32.5 g/dl (31.0-37.0); MEAN PLATELET VOLUME 9.3 fl (7.0-11.0); MONO # 0.9 (0.1-0.6); MONO % 5.5 % (1.0-6.0); PLATELET COUNT 317 10^3/uL (120.0-450.0); RED CELL DISTRIBUTION WIDTH 19.2 % (11.5-14.5); WHITE BLOOD COUNT 15.5 10^3/ul (4.5-11.0)
[2016-08-09 08:26] LABS: ALB/GLOB RATIO 0.7 (1.1-1.8); ALKALINE PHOSPHATASE 166 U/L (38-133); ALT/SGPT 23 U/L (7-56); AST/SGOT 22 U/L (15-39); BILIRUBIN,TOTAL 0.5 mg/dL (0.2-1.3); BLOOD UREA NITROGEN 8 mg/dL (7-21); CALCIUM 7.5 mg/dL (8.4-10.5); CARBON DIOXIDE 19 mmol/L (21-33); CHLORIDE 115 mmol/L (98-107); GFR AFRICAN-AMERICAN > 60; GLUCOSE,RANDOM 84 mg/dL (70-110); MAGNESIUM 1.6 mg/dL (1.7-2.2); PHOSPHOROUS 2.5 mg/dL (2.5-4.5); POTASSIUM 3.1 mmol/L (3.6-5.0); SODIUM 138 mmol/L (132-148); TOTAL PROTEIN 4.4 g/dL (5.8-8.3)
--- NOTE | 2016-08-09 10:13 | CP.PCM.PN ---
Subjective - Date & Time of Evaluation Date of Evaluation: 08/09/16 Time of Evaluation: 08:00 - Subjective Subjective: Surgery: Dr. Keita Pt seen and examined. No acute overnight events. Denies abdominal pain, N/V, F/ C. Objective - Vital Signs/Intake and Output Vital Signs (last 24 hours): Temp Pulse Resp BP Pulse Ox 98.3 F 83 18 102/71 100 08/09/16 08:42 08/09/16 08:42 08/09/16 08:42 08/09/16 08:42 08/09/16 08:42 Intake and Output: 08/09/16 08/09/16 06:59 18:59 Intake Total 0 Output Total 1295 Balance -1295 - Medications Medications: Current Medications Acetaminophen (Tylenol 650mg/20.3ml Solution Ud) 320 mg PO Q4 PRN PRN Reason: Fever >100.4 F Last Admin: 08/08/16 10:30 Dose: 320 mg Aspirin (Ecotrin) 81 mg PO DAILY [facility] Last Admin: 08/08/16 10:09 Dose: 81 mg Atorvastatin Calcium (Lipitor) 40 mg PO DIN [facility] Last Admin: 08/05/16 19:27 Dose: 40 mg Benzocaine/Menthol (Cepacol Sore Throat) 1 [place] MT Q2H PRN PRN Reason: Sore Throat Last Admin: 08/08/16 10:10 Dose: 1 burton Calcium Carbonate (Oscal) 500 mg PO DAILY [facility] Last Admin: 08/08/16 10:09 Dose: 500 mg Cholecalciferol (Vitamin D) 2,000 iu PO DAILY [facility] Last Admin: 08/08/16 10:09 Dose: 2,000 iu Clonidine HCl (Catapres Tts1 0.1 Mg/24 Hr) 1 patch TD Q7D@1000 [facility] Last Admin: 08/07/16 16:16 Dose: 1 patch Docusate Sodium (Colace) 100 mg PO TID [facility] Last Admin: 08/08/16 15:01 Dose: Not Given Donepezil HCl (Aricept) 10 mg PO HS [facility] Last Admin: 08/08/16 22:13 Dose: 10 mg Enoxaparin Sodium (Lovenox) 30 mg SC DAILY [facility] PRN Reason: Protocol Last Admin: 08/08/16 10:07 Dose: 30 mg Ferrous Sulfate (Feosol) 324 mg PO TID [facility] Last Admin: 08/08/16 15:01 Dose: Not Given Hydralazine HCl (Apresoline) 10 mg IVP Q6 PRN PRN Reason: Other Last Admin: 08/08/16 17:11 Dose: 10 mg Metronidazole (Flagyl) 500 mg in 100 mls @ 100 mls/hr IVPB Q8 [facility] PRN Reason: Protocol Last Admin: 08/09/16 06:17 Dose: 100 mls/hr Cefazolin Sodium (Ancef 1gm In Ns) 1 gm in 100 mls @ 100 mls/hr IVPB Q8 [facility] PRN Reason: Protocol Last Admin: 08/09/16 06:16 Dose: 100 mls/hr Fluconazole (Diflucan Iv 200 Mg/100 Ml Ns) 100 mls @ 100 mls/hr IVPB DAILY [facility] PRN Reason: Protocol Last Admin: 08/08/16 10:07 Dose: 100 mls/hr Dextrose/Sodium Chloride (Dextrose 5%/0.45% Ns 1000 Ml) 1,000 mls @ 75 mls/hr IV .[id number] [facility] Last Admin: 08/08/16 14:15 Dose: 75 mls/hr Potassium Chloride (Potassium Chloride 20 Meq/100 Ml) 20 meq in 100 mls @ 50 mls/hr IVPB Q2H [facility] Stop: 08/09/16 12:44 Metoprolol Tartrate (Lopressor) 50 mg PO BID [facility] Last Admin: 08/08/16 10:08 Dose: 50 mg Ondansetron HCl (Zofran Inj) 4 mg IVP ONCE PRN PRN Reason: Nausea/Vomiting Ondansetron HCl (Zofran Inj) 4 mg IVP Q6 PRN PRN Reason: Nausea/Vomiting Pantoprazole Sodium (Protonix Ec Tab) 20 mg PO ACB [facility] Last Admin: 08/08/16 10:12 Dose: 20 mg - Labs Labs: 08/09/16 07:30 08/09/16 07:30 PT 15.2 Seconds (9.9-11.8) H 08/07/16 11:30 INR 1.41 (0.93-1.08) H 08/07/16 11:30 APTT 32.7 Seconds (23.7-30.8) H 08/07/16 11:30 - Constitutional Appears: No Acute Distress - Head Exam Head Exam: ATRAUMATIC, NORMOCEPHALIC - ENT Exam ENT Exam: Mucous Membranes Moist - Respiratory Exam Respiratory Exam: NORMAL BREATHING PATTERN - Cardiovascular Exam Cardiovascular Exam: RRR - GI/Abdominal Exam GI & Abdominal Exam: Soft. absent: Distended, Rebound Additional comments: midline incision with damon, C/D/I, ostomy in place with minimal fluid in bag - Extremities Exam Extremities Exam: absent: Tenderness - Neurological Exam Neurological Exam: Alert, Awake, Oriented x3 - Skin Skin Exam: Dry, Warm Assessment and Plan - Assessment and Plan (Free Text) Assessment: 86F s/p sigmoid colon resection and colostomy with mucous fistula; POD#3 Plan: - Advance to soft diet - monitor for bowel function - Encourage out of bed to chair with PT - Monitor drain outputs - d/w Dr. Bossman Saavedra, PGY-2 Surgery
[2016-08-09] MEDS: Enoxaparin 30 mg Syringe SC SCH (10:15)
[2016-08-09] MEDS ORDERED: Lidocaine 2% Inj (20ml) ONE (12:00)
[2016-08-09] MEDS ORDERED: Metoprolol 1 mg/ml Inj IVP ONE (12:13)
--- NOTE | 2016-08-09 13:06 | CP.PCM.PN ---
<Jess Wilkerson - Last Filed: 08/09/16 17:12> Subjective - Date & Time of Evaluation Date of Evaluation: 08/09/16 Time of Evaluation: 08:00 - Subjective Subjective: Medicine progress note for Dr Diaz and Dr Zuniga service. According the nurse, patient became transiently unresponsive last night, and waked up after deep chest rubs. Patient was fine afterword. Might have been due to pain meds. Patient is awake this morning, appears very lethargic and depressed. Patient admits to sob, denies cp. Admits to abdominal pain and soreness. Patient denies nausea, vomiting. Admits to chills, denies fever. Objective - Vital Signs/Intake and Output Vital Signs (last 24 hours): Temp Pulse Resp BP Pulse Ox 98.3 F 83 18 102/71 100 08/09/16 08:42 08/09/16 08:42 08/09/16 08:42 08/09/16 08:42 08/09/16 08:42 Intake and Output: 08/09/16 08/09/16 06:59 18:59 Intake Total 0 60 Output Total 1295 Balance -1295 60 - Medications Medications: Current Medications Acetaminophen (Tylenol 650mg/20.3ml Solution Ud) 320 mg PO Q4 PRN PRN Reason: Fever >100.4 F Last Admin: 08/08/16 10:30 Dose: 320 mg Aspirin (Ecotrin) 81 mg PO DAILY [facility] Last Admin: 08/08/16 10:09 Dose: 81 mg Atorvastatin Calcium (Lipitor) 40 mg PO DIN [facility] Last Admin: 08/05/16 19:27 Dose: 40 mg Benzocaine/Menthol (Cepacol Sore Throat) 1 [place] MT Q2H PRN PRN Reason: Sore Throat Last Admin: 08/08/16 10:10 Dose: 1 burton Calcium Carbonate (Oscal) 500 mg PO DAILY [facility] Last Admin: 08/08/16 10:09 Dose: 500 mg Cholecalciferol (Vitamin D) 2,000 iu PO DAILY [facility] Last Admin: 08/08/16 10:09 Dose: 2,000 iu Clonidine HCl (Catapres Tts1 0.1 Mg/24 Hr) 1 patch TD Q7D@1000 [facility] Last Admin: 08/07/16 16:16 Dose: 1 patch Docusate Sodium (Colace) 100 mg PO TID [facility] Last Admin: 08/08/16 15:01 Dose: Not Given Donepezil HCl (Aricept) 10 mg PO HS [facility] Last Admin: 08/08/16 22:13 Dose: 10 mg Enoxaparin Sodium (Lovenox) 30 mg SC DAILY [facility] PRN Reason: Protocol Last Admin: 08/08/16 10:07 Dose: 30 mg Ferrous Sulfate (Feosol) 324 mg PO TID [facility] Last Admin: 08/08/16 15:01 Dose: Not Given Hydralazine HCl (Apresoline) 10 mg IVP Q6 PRN PRN Reason: Other Last Admin: 08/08/16 17:11 Dose: 10 mg Metronidazole (Flagyl) 500 mg in 100 mls @ 100 mls/hr IVPB Q8 [facility] PRN Reason: Protocol Last Admin: 08/09/16 06:17 Dose: 100 mls/hr Fluconazole (Diflucan Iv 200 Mg/100 Ml Ns) 100 mls @ 100 mls/hr IVPB DAILY [facility] PRN Reason: Protocol Last Admin: 08/08/16 10:07 Dose: 100 mls/hr Dextrose/Sodium Chloride (Dextrose 5%/0.45% Ns 1000 Ml) 1,000 mls @ 75 mls/hr IV .[id number] [facility] Last Admin: 08/08/16 14:15 Dose: 75 mls/hr Ampicillin Sodium/Sulbactam Sodium (Unasyn 1 Gm-0.5 Gm) 1 gm in 100 mls @ 100 mls/hr IVPB Q6 [facility] PRN Reason: Protocol Metoprolol Tartrate (Lopressor) 50 mg PO BID [facility] Last Admin: 08/08/16 10:08 Dose: 50 mg Ondansetron HCl (Zofran Inj) 4 mg IVP ONCE PRN PRN Reason: Nausea/Vomiting Ondansetron HCl (Zofran Inj) 4 mg IVP Q6 PRN PRN Reason: Nausea/Vomiting Pantoprazole Sodium (Protonix Ec Tab) 20 mg PO ACB [facility] Last Admin: 08/08/16 10:12 Dose: 20 mg - Labs Labs: 08/09/16 07:30 08/09/16 07:30 PT 15.2 Seconds (9.9-11.8) H 08/07/16 11:30 INR 1.41 (0.93-1.08) H 08/07/16 11:30 APTT 32.7 Seconds (23.7-30.8) H 08/07/16 11:30 - Constitutional Appears: No Acute Distress, Cachectic, Chronically Ill - Head Exam Head Exam: ATRAUMATIC, NORMAL INSPECTION, NORMOCEPHALIC - Eye Exam Eye Exam: EOMI, Normal appearance, PERRL. absent: Scleral icterus - ENT Exam ENT Exam: Mucous Membranes Moist - Neck Exam Neck Exam: Normal Inspection - Respiratory Exam Respiratory Exam: Rales, NORMAL BREATHING PATTERN. absent: Rhonchi, Wheezes, Respiratory Distress, Stridor - Cardiovascular Exam Cardiovascular Exam: Irregular Rhythm, +S1, +S2, Murmur. absent: Gallop, JVD, Rubs - GI/Abdominal Exam GI & Abdominal Exam: Soft, Tenderness (at the incision site.), Hypoactive Bowel Sounds. absent: Distended, Firm, Guarding, Rebound Assessment and Plan - Assessment and Plan (Free Text) Assessment: Patient is an 86 y/o with PMH of HTN, CAD s/p stents, CHF, HLD, Alzeheimer's dementia, h/o cholecystectomy, Diverticulitis admitted with intra-abdominal abscess with cutaneous fistula s/p IR drain placement day # 8, s/p sigmoid resection with colostomy mucous fistula POD# 2. Patient is currently oliguric. Plan: 1) New onset RVR Afib - s/p 5 mg ivp metoprolol - transfer to [facility] - will follow up with cardiology for the next plan - will consider Cardizem drip or lopressor if the rate is still rapid. 2) Diverticulitis with intra-abdominal abscess with cutaneous fistula - s/p IR drain placement day # 8, - s/p sigmoid resection with colostomy mucous fistula POD# 3. - Post operative wound care as per surgery - Pain control with morphine and Tylenol prn - IS, OOBTC - d51/2ns@50 cc/hr - Intra-abdominal abscess grew ecoli. on unasyn. 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 - UO continue to approve - Lasix prn for pulm congestion - IVF - strict I&Os. - Avoid NSAIDs. 3) Malnutrition with anasarca - s/p albumin infusion - now on soft hh diet. 5) Normocytic anemia - s/p 2 units prbc this admission - h/h improved - will monitor. 7) h/o CAD - continue asa, Lipitor, and Lopressor. - diovan d/c due to renal function. hydralazine prn for htn 8) Transaminitis-will continue to trend. 9) Hypomagnesium-will repletion, and monitor 10) Hypokalemia- will replete, and monitor 11) Vitamin D deficiency - po vitamin d 2000 11) h/o osteoporosis - will d/c alendronate due to renal function. 12) Dementia- continue aricept 13) DVT prophylaxis: Lovenox and protonix. 14) Dispo- [facility] when medically optimized. Patient, seen, examined, and case discussed with Dr Zuniga. <Aubrey Zuniga - Last Filed: 08/29/16 19:23> Objective - Vital Signs/Intake and Output Vital Signs (last 24 hours): Temp Pulse Resp BP Pulse Ox 95 F L 42 L 36 H 95/57 L 96 08/17/16 12:00 08/17/16 20:00 08/17/16 20:00 08/17/16 19:00 08/17/16 20:30 - Labs Labs: 08/17/16 05:00 08/17/16 05:00 PT 12.3 Seconds (9.9-11.8) H 08/15/16 14:50 INR 1.14 (0.93-1.08) H 08/15/16 14:50 APTT 34.8 Seconds (23.7-30.8) H 08/15/16 14:50 Attending/Attestation - Attestation I have personally seen and examined this patient.: Yes I have fully participated in the care of the patient.: Yes I have reviewed all pertinent clinical information, including history, physical exam and plan: Yes Notes (Text): 08/29/16 19:23 Medical record note made by the resident after discussion with my direction and input after the patient was personally seen and examined by me. I have reviewed the chart and agree that the record accurately reflects by personal performance of the history, physical exam, data review, and medical decision-making, in the course for the patient. I have also personally directed the plan of care.
[2016-08-09] MEDS ORDERED: Magnesium Sulfate 2 GM in Sodium Chloride 0.9% 100 ML IV ONE (13:08)
[2016-08-09] MEDS: Dextrose 5%/0.45% NS 1,000 ML IV SCH (14:29)
[2016-08-09] MEDS: Fluconazole IV 200mg/100 ml NS 100 ML IVPB SCH (14:43)
--- NOTE | 2016-08-09 15:10 | US ---
PROCEDURE: HISTORY: KRIS and low urine putput COMPARISON: TECHNIQUE: FINDINGS: The right kidney measures 9.6 centimeters. Left kidney measures 10.3 centimeters. There is mild fullness of the right renal collecting system. Perinephric fluid is suggested along the left kidney. No mass is identified. There is a right pleural effusion. IMPRESSION: As above.
--- NOTE | 2016-08-09 15:43 | CP.PCM.PN ---
Subjective - Date & Time of Evaluation Date of Evaluation: 08/09/16 Time of Evaluation: 14:00 - Subjective Subjective: Infectious Disease Follow Up: August 09, 2016 85 yo female sent to [facility] from Dr. Keita's office after discovery of purulent drainage from left lower abdominal drain site. She has a history of hypertension, GI bleed, CAD with stents, anemia, and osteoporosis. Many of her hospitalizations last year were for GI bleed. 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 She is currently on ceftriaxone and Flagyl. This will cover most recurrences of E. coli. Taken to IR by Dr. Zaldivar on Friday. 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 IR drain is still showing fecal material. E. coli in cultures of wound site. Yeast in urine cultures. Tre-colectomy yesteday with monitoring post surgery in MICU. Patient transferred to medical floor today. She makes few complaints today. Low urine output. Noted events of last night where patient was briefly unresponsive and finally awoke after several attempts with deep chest rubs. Patient was lethargic this morning according to notes. Objective - Vital Signs/Intake and Output Vital Signs (last 24 hours): Temp Pulse Resp BP Pulse Ox 98.3 F 83 18 102/71 100 08/09/16 08:42 08/09/16 08:42 08/09/16 08:42 08/09/16 08:42 08/09/16 08:42 Intake and Output: 08/09/16 08/09/16 06:59 18:59 Intake Total 0 60 Output Total 1295 390 Balance -1295 -330 - Medications Medications: Current Medications Acetaminophen (Tylenol 650mg/20.3ml Solution Ud) 320 mg PO Q4 PRN PRN Reason: Fever >100.4 F Last Admin: 08/08/16 10:30 Dose: 320 mg Aspirin (Ecotrin) 81 mg PO DAILY [facility] Last Admin: 08/08/16 10:09 Dose: 81 mg Atorvastatin Calcium (Lipitor) 40 mg PO DIN [facility] Last Admin: 08/05/16 19:27 Dose: 40 mg Benzocaine/Menthol (Cepacol Sore Throat) 1 [place] MT Q2H PRN PRN Reason: Sore Throat Last Admin: 08/08/16 10:10 Dose: 1 burton Calcium Carbonate (Oscal) 500 mg PO DAILY [facility] Last Admin: 08/08/16 10:09 Dose: 500 mg Cholecalciferol (Vitamin D) 2,000 iu PO DAILY [facility] Last Admin: 08/08/16 10:09 Dose: 2,000 iu Clonidine HCl (Catapres Tts1 0.1 Mg/24 Hr) 1 patch TD Q7D@1000 [facility] Last Admin: 08/07/16 16:16 Dose: 1 patch Docusate Sodium (Colace) 100 mg PO TID [facility] Last Admin: 08/08/16 15:01 Dose: Not Given Donepezil HCl (Aricept) 10 mg PO HS [facility] Last Admin: 08/08/16 22:13 Dose: 10 mg Enoxaparin Sodium (Lovenox) 30 mg SC DAILY [facility] PRN Reason: Protocol Last Admin: 08/08/16 10:07 Dose: 30 mg Ferrous Sulfate (Feosol) 324 mg PO TID [facility] Last Admin: 08/08/16 15:01 Dose: Not Given Hydralazine HCl (Apresoline) 10 mg IVP Q6 PRN PRN Reason: Other Last Admin: 08/08/16 17:11 Dose: 10 mg Metronidazole (Flagyl) 500 mg in 100 mls @ 100 mls/hr IVPB Q8 [facility] PRN Reason: Protocol Last Admin: 08/09/16 14:44 Dose: 100 mls/hr Fluconazole (Diflucan Iv 200 Mg/100 Ml Ns) 100 mls @ 100 mls/hr IVPB DAILY [facility] PRN Reason: Protocol Last Admin: 08/09/16 14:43 Dose: 100 mls/hr Dextrose/Sodium Chloride (Dextrose 5%/0.45% Ns 1000 Ml) 1,000 mls @ 75 mls/hr IV .[id number] [facility] Last Admin: 08/09/16 14:29 Dose: 75 mls/hr Ampicillin Sodium/Sulbactam Sodium (Unasyn 1 Gm-0.5 Gm) 1 gm in 100 mls @ 100 mls/hr IVPB Q6 [facility] PRN Reason: Protocol Metoprolol Tartrate (Lopressor) 50 mg PO BID [facility] Last Admin: 08/08/16 10:08 Dose: 50 mg Ondansetron HCl (Zofran Inj) 4 mg IVP ONCE PRN PRN Reason: Nausea/Vomiting Ondansetron HCl (Zofran Inj) 4 mg IVP Q6 PRN PRN Reason: Nausea/Vomiting Pantoprazole Sodium (Protonix Ec Tab) 20 mg PO ACB [facility] Last Admin: 08/08/16 10:12 Dose: 20 mg - Labs Labs: 08/09/16 07:30 08/09/16 07:30 PT 15.2 Seconds (9.9-11.8) H 08/07/16 11:30 INR 1.41 (0.93-1.08) H 08/07/16 11:30 APTT 32.7 Seconds (23.7-30.8) H 08/07/16 11:30 - Constitutional Appears: Non-toxic, No Acute Distress, Chronically Ill - Head Exam Head Exam: ATRAUMATIC, NORMOCEPHALIC - Eye Exam Eye Exam: EOMI, PERRL Pupil Exam: NORMAL ACCOMODATION, PERRL - ENT Exam ENT Exam: Mucous Membranes Moist, Normal External Ear Exam, TM's Normal Bilaterally - Neck Exam Neck Exam: Full ROM, Normal Inspection - Respiratory Exam Respiratory Exam: Clear to Ausculation Bilateral, NORMAL BREATHING PATTERN. absent: Rales, Rhonchi, Wheezes - Cardiovascular Exam Cardiovascular Exam: Irregular Rhythm, +S1, +S2 - GI/Abdominal Exam GI & Abdominal Exam: Soft, Normal Bowel Sounds. absent: Tenderness Additional comments: colostomy in place. s/p sigmoidectomy. - Extremities Exam Extremities Exam: Full ROM, Normal Inspection - Back Exam Back Exam: Full ROM, NORMAL INSPECTION - Neurological Exam Neurological Exam: Alert, Awake, CN II-XII Intact, Oriented x3 - Psychiatric Exam Psychiatric exam: Normal Affect, Normal Mood - Skin Skin Exam: Intact, Normal Color Assessment and Plan - Assessment and Plan (Free Text) Assessment: 86 yo female with intra-abdominal abscess presenting with drainage of pus. Taken by IR for drain placement. Spoke with Dr. Zaldivar in detail regarding case. He fears formation of fistula at this time. On Rocephin and Metronidazole. Last hospitalization showed VRE and E. coli growth. Supportive care with low tolerance for switching antibiotics to one such as meropenem. Current culture is showing E. coli that is sensitive to Rocephin and Ancef. Continuing on Ancef. On Diflucan to cover yeast in the urine. New cultures taken. Supportive care. Sigmoid colectomy during exploratory laparotomy. Continue Ancef. Colostomy in place. On medical floor. Events of the night noted... briefly unresponsive overnight. Thank you for allowing me to participate in the care of the patient, we will follow with you.
--- NOTE | 2016-08-09 16:09 | CP.PCM.PN ---
Subjective - Date & Time of Evaluation Date of Evaluation: 08/09/16 Time of Evaluation: 16:00 - Subjective Subjective: Follow up Nephrology Consultation: Assessment: Non-oliguric Acute Kidney Injury likely due to ATN due to hypotension episode: RESOLVING hx of HTN, CAD s/p stent, CHF, HLD, Alzeheimer's dementia Diverticulitis with abscess s/p IR drainage s/p exploratory laparotomy (08/06) with sigmoid resection, washout of intra-abdominal abscess, mobilization of the splenic flexure, creation of ostomy and mucous fistula creation with B/L ureteral stent placement by Vit D def, mild lactic acidosis and hypomagnesemia, Hypokalemia Plan serum creatinine improved. improvement in her urine output noted. she got lasix 40 mg IV this AM. supplement electrolytes. Hypertension control with meds as ordered. continue to hold diovan due to recent KRIS. on PRN hydralazine for HTN reviewed renal sono: unremarkable Monitor Input/Output, daily weights Dose meds/antibiotics for normal GFR. Avoid fleets enema/magnesium based laxatives. Avoid nephrotoxins/NSAIDs/ iodinated contrast (unless needed emergently) Glycemic control Further work up for as per primary team Thanks for allowing me to participate in care of your patient. Will follow patient with you. Please call if any Qs. d/w team Dr Jhon Can Office: [phone] HPI: Pt is a 86 y/o F with hx of HTN, CAD s/p stents, CHF, HLD, Alzeheimer's dementia and Diverticulitis w/abscess s/p IR drainage underwent exploratory laparotomy (08/06)with sigmoid resection, washout of intra-abdominal abscess, mobilization of the splenic flexure, creation of ostomy and mucous fistula creation with B/L ureteral stent placement by is seen in renal consultation as has decreased urine outpt in post-op period. episodes of low BP post-op, SBP 80-90 Subjective: pt looks better. she denies CP/SOB. reports leg pain. urine output better. 570 mL in bag now. had 750 mL earlier Physical Examination: General Appearance: elderly female comfortable, in no acute respiratory distress , co-operative . Vitals reviewed and noted as below. BP better Lungs: Normal respiratory rate/effort. Breath sounds bilateral decreased at bases Heart: Normal rate. s1s2 normal. No rub or gallop. Extremities: trace edema. No varicose veins Neurological: Patient is alert but not much communicative today Abdomen: Abdomen is soft. has LLQ ostomy. midline dressing and MO drains+ . : kidney or bladder not palpable. has cote Labs/imaging reviewed. Past medical history, past surgical history, family history, social history, allergy reviewed and noted as below work up: previosu imaging: normal kidneys and bladder UA: trace protein no blood Vit D <12 Mag 1.3 Urine Na 40 Objective - Vital Signs/Intake and Output Vital Signs (last 24 hours): Temp Pulse Resp BP Pulse Ox 98.3 F 83 18 102/71 100 08/09/16 08:42 08/09/16 08:42 08/09/16 08:42 08/09/16 08:42 08/09/16 08:42 Intake and Output: 08/09/16 08/09/16 06:59 18:59 Intake Total 0 60 Output Total 1295 390 Balance -1295 -330 - Medications Medications: Current Medications Acetaminophen (Tylenol 650mg/20.3ml Solution Ud) 320 mg PO Q4 PRN PRN Reason: Fever >100.4 F Last Admin: 08/08/16 10:30 Dose: 320 mg Aspirin (Ecotrin) 81 mg PO DAILY [facility] Last Admin: 08/09/16 09:15 Dose: Not Given Atorvastatin Calcium (Lipitor) 40 mg PO DIN [facility] Last Admin: 08/05/16 19:27 Dose: 40 mg Benzocaine/Menthol (Cepacol Sore Throat) 1 [place] MT Q2H PRN PRN Reason: Sore Throat Last Admin: 08/08/16 10:10 Dose: 1 burton Calcium Carbonate (Oscal) 500 mg PO DAILY [facility] Last Admin: 08/09/16 09:15 Dose: Not Given Cholecalciferol (Vitamin D) 2,000 iu PO DAILY [facility] Last Admin: 08/09/16 09:15 Dose: Not Given Clonidine HCl (Catapres Tts1 0.1 Mg/24 Hr) 1 patch TD Q7D@1000 [facility] Last Admin: 08/07/16 16:16 Dose: 1 patch Docusate Sodium (Colace) 100 mg PO TID [facility] Last Admin: 08/09/16 15:46 Dose: Not Given Donepezil HCl (Aricept) 10 mg PO HS [facility] Last Admin: 08/08/16 22:13 Dose: 10 mg Enoxaparin Sodium (Lovenox) 30 mg SC DAILY [facility] PRN Reason: Protocol Last Admin: 08/08/16 10:07 Dose: 30 mg Ferrous Sulfate (Feosol) 324 mg PO TID [facility] Last Admin: 08/09/16 09:15 Dose: Not Given Hydralazine HCl (Apresoline) 10 mg IVP Q6 PRN PRN Reason: Other Last Admin: 08/08/16 17:11 Dose: 10 mg Metronidazole (Flagyl) 500 mg in 100 mls @ 100 mls/hr IVPB Q8 [facility] PRN Reason: Protocol Last Admin: 08/09/16 14:44 Dose: 100 mls/hr Fluconazole (Diflucan Iv 200 Mg/100 Ml Ns) 100 mls @ 100 mls/hr IVPB DAILY [facility] PRN Reason: Protocol Last Admin: 08/09/16 14:43 Dose: 100 mls/hr Dextrose/Sodium Chloride (Dextrose 5%/0.45% Ns 1000 Ml) 1,000 mls @ 75 mls/hr IV .[id number] [facility] Last Admin: 08/09/16 14:29 Dose: 75 mls/hr Ampicillin Sodium/Sulbactam Sodium (Unasyn 1 Gm-0.5 Gm) 1 gm in 100 mls @ 100 mls/hr IVPB Q6 [facility] PRN Reason: Protocol Metoprolol Tartrate (Lopressor) 50 mg PO BID [facility] Last Admin: 08/08/16 10:08 Dose: 50 mg Ondansetron HCl (Zofran Inj) 4 mg IVP ONCE PRN PRN Reason: Nausea/Vomiting Ondansetron HCl (Zofran Inj) 4 mg IVP Q6 PRN PRN Reason: Nausea/Vomiting Pantoprazole Sodium (Protonix Ec Tab) 20 mg PO ACB [facility] Last Admin: 08/09/16 07:49 Dose: Not Given - Labs Labs: 08/09/16 07:30 08/09/16 07:30 PT 15.2 Seconds (9.9-11.8) H 08/07/16 11:30 INR 1.41 (0.93-1.08) H 08/07/16 11:30 APTT 32.7 Seconds (23.7-30.8) H 08/07/16 11:30
--- NOTE | 2016-08-09 16:45 | VASCULAR ---
PROCEDURE: Ultrasound and fluoroscopically placed left upper extremity PICC line. HISTORY: Diverticular abscess. Persistent colonic fistula. Recent colostomy. Long-term IV antibiotics. Needs PICC line. PHYSICIAN(S): Esa Zaldivar MD. TECHNIQUE: The relative risks and indications of the procedure were explained to the patient's family and consent obtained. The patient was placed supine on the arteriogram table and the left arm prepped and draped in the usual sterile fashion. A tourniquet was applied to the left axilla. 1% Xylocaine was used to anesthetize the skin and soft tissues at the puncture site above the elbow. The left brachial vein was punctured under direct ultrasound guidance with a micropuncture set. A 0.018 guidewire was advanced centrally and used to measure the length to the SVC/RA junction. A 5 Bengali single-lumen PICC line 41 cm long was advanced to the SVC/RA junction. The catheter was flushed and secured. The patient tolerated the procedure well. IMPRESSION: 1. Ultrasound and fluoroscopically placed left upper extremity PICC line. A 5 Bengali single-lumen PICC line 41 cm long was advanced to the SVC/RA junction.
[2016-08-09] MEDS ORDERED: Dextrose 5%/0.45% NS 1,000 ML IV SCH (17:11)
[2016-08-09 19:27] LABS: BLOOD UREA NITROGEN 8 mg/dL (7-21); CALCIUM 7.3 mg/dL (8.4-10.5); CARBON DIOXIDE 22 mmol/L (21-33); CHLORIDE 112 mmol/L (95-110); GFR AFRICAN-AMERICAN > 60; GLUCOSE,RANDOM 93 mg/dL (70-110); MAGNESIUM 1.9 mg/dL (1.7-2.2); POTASSIUM 3.5 mmol/L (3.6-5.0); SODIUM 137 mmol/L (132-148)
[2016-08-10] MEDS: metroNIDAZOLE IV 500 mg/100 ml 500 MG/100 ML BAG IVPB SCH ×3 (05:15→23:07)
[2016-08-10 06:20] LABS: ADD MANUAL DIFF? NO
--- NOTE | 2016-08-10 06:32 | CP.PCM.PN ---
<RheaJess - Last Filed: 08/10/16 19:11> Subjective - Date & Time of Evaluation Date of Evaluation: 08/10/16 Time of Evaluation: 07:10 - Subjective Subjective: Medicine progress note Dr Diaz and Dr Zuniga. This AM, around 7:30 am, noticed patient's tele with HR of 140s-160s irregularly irregular with some MAT. We gave patient 40 units of Cardizem ivp stat, and no changes in the HR. The HR continued to climb up to 200s-220s. Around 8:12, contacted , business services clerk, Dr Cruz, recommended 0.25 mg ivp digoxin stat. HR improved from 220s to 160s transiently, but still irregular.HR worsened to 200S again, and [employer] was called. Throughout these events patient appeared lethargic, but responsive. Patient sbp was in the 140s, and saturating at 98% on 2 litters. Patient c/o of chest pain, stat ekg obtained revealed ST depression on the lateral leads. Cardiac markers revealed troponin of 0.3, patient was giving asa and sublingual nitroglycerin. ICU was consulted, Dr Higuera recommended amiodorone bolus, and wait 15 minutes. The heart rhythm didn't convert, but HR improved to 120s, recommended we started po [id number] and Lopressor. Dr Cruz recommended CTPE to r/o PE, started patient on Lovenox for NSTEMI. Spoke to patient's granddaughter, whom is patient LISA, at [phone], to confirm patient's advance directives, she states she wants everything to be done to the patient for now, and she'll make her final decisions later. Patient doesn't have advance directive. Objective - Vital Signs/Intake and Output Vital Signs (last 24 hours): Temp Pulse Resp BP Pulse Ox 98.6 F 115 H 18 156/86 H 97 08/10/16 06:00 08/10/16 06:00 08/10/16 06:00 08/10/16 06:00 08/10/16 06:00 Intake and Output: 08/09/16 08/10/16 18:59 06:59 Intake Total 660 1120 Output Total 1117 600 Balance -457 520 - Medications Medications: Current Medications Acetaminophen (Tylenol 650mg/20.3ml Solution Ud) 320 mg PO Q4 PRN PRN Reason: Fever >100.4 F Last Admin: 08/08/16 10:30 Dose: 320 mg Aspirin (Ecotrin) 81 mg PO DAILY [facility] Last Admin: 08/09/16 09:15 Dose: Not Given Atorvastatin Calcium (Lipitor) 40 mg PO DIN [facility] Last Admin: 08/09/16 18:21 Dose: Not Given Benzocaine/Menthol (Cepacol Sore Throat) 1 [place] MT Q2H PRN PRN Reason: Sore Throat Last Admin: 08/08/16 10:10 Dose: 1 burton Calcium Carbonate (Oscal) 500 mg PO DAILY [facility] Last Admin: 08/09/16 09:15 Dose: Not Given Cholecalciferol (Vitamin D) 2,000 iu PO DAILY [facility] Last Admin: 08/09/16 09:15 Dose: Not Given Clonidine HCl (Catapres Tts1 0.1 Mg/24 Hr) 1 patch TD Q7D@1000 [facility] Last Admin: 08/07/16 16:16 Dose: 1 patch Docusate Sodium (Colace) 100 mg PO TID [facility] Last Admin: 08/09/16 16:44 Dose: Not Given Donepezil HCl (Aricept) 10 mg PO HS [facility] Last Admin: 08/09/16 22:39 Dose: 10 mg Ferrous Sulfate (Feosol) 324 mg PO TID [facility] Last Admin: 08/09/16 18:21 Dose: Not Given Heparin Sodium (Porcine) (Heparin) 5,000 units SC Q8 [facility] PRN Reason: Protocol Last Admin: 08/10/16 05:14 Dose: 5,000 units Hydralazine HCl (Apresoline) 10 mg IVP Q6 PRN PRN Reason: Other Last Admin: 08/10/16 00:15 Dose: 10 mg Metronidazole (Flagyl) 500 mg in 100 mls @ 100 mls/hr IVPB Q8 [facility] PRN Reason: Protocol Last Admin: 08/10/16 05:15 Dose: 100 mls/hr Fluconazole (Diflucan Iv 200 Mg/100 Ml Ns) 100 mls @ 100 mls/hr IVPB DAILY [facility] PRN Reason: Protocol Last Admin: 08/09/16 14:43 Dose: 100 mls/hr Ampicillin Sodium/Sulbactam Sodium (Unasyn 1 Gm-0.5 Gm) 1 gm in 100 mls @ 100 mls/hr IVPB Q6 [facility] PRN Reason: Protocol Last Admin: 08/10/16 05:15 Dose: 100 mls/hr Dextrose/Sodium Chloride (Dextrose 5%/0.45% Ns 1000 Ml) 1,000 mls @ 50 mls/hr IV .Q20H [facility] Metoprolol Tartrate (Lopressor) 50 mg PO BID [facility] Last Admin: 08/09/16 18:22 Dose: Not Given Ondansetron HCl (Zofran Inj) 4 mg IVP Q6 PRN PRN Reason: Nausea/Vomiting Pantoprazole Sodium (Protonix Ec Tab) 20 mg PO ACB [facility] Last Admin: 08/09/16 07:49 Dose: Not Given - Labs Labs: 08/09/16 07:30 08/09/16 18:57 PT 15.2 Seconds (9.9-11.8) H 08/07/16 11:30 INR 1.41 (0.93-1.08) H 08/07/16 11:30 APTT 32.7 Seconds (23.7-30.8) H 08/07/16 11:30 - Constitutional Appears: No Acute Distress, Older Than Stated Age, Confused, Cachectic, Chronically Ill - Head Exam Head Exam: ATRAUMATIC, NORMAL INSPECTION, NORMOCEPHALIC - Eye Exam Eye Exam: PERRL. absent: Scleral icterus - ENT Exam ENT Exam: Mucous Membranes Moist - Respiratory Exam Respiratory Exam: Decreased Breath Sounds (AT THE BASES.), Rales, NORMAL BREATHING PATTERN. absent: Rhonchi, Wheezes, Respiratory Distress, Stridor - Cardiovascular Exam Cardiovascular Exam: Tachycardia, Irregular Rhythm, +S1, +S2, Murmur - GI/Abdominal Exam GI & Abdominal Exam: Soft, Hypoactive Bowel Sounds. absent: Distended, Firm, Guarding, Rigid, Tenderness Additional comments: Ostomy draining serosanguinous fluid. 2 MO drains, one draining serosanguous fluid, the other draining yellowish fluid. Incision site clean and intact with damon. - Extremities Exam Extremities Exam: Pedal Edema, Tenderness (left hand) - Neurological Exam Neurological Exam: absent: Alert, Awake, Oriented x3 Additional comments: Patient is very lethargic. - Psychiatric Exam Psychiatric exam: Depressed - Skin Skin Exam: Diaphoretic Additional comments: anasarca. Assessment and Plan - Assessment and Plan (Free Text) Assessment: Patient is an 86 y/o with PMH of HTN, CAD s/p stents, CHF, HLD, Alzheimer's dementia, h/o cholecystectomy, Diverticulitis admitted with intra-abdominal abscess with cutaneous fistula s/p IR drain placement day # 9, s/p sigmoid resection with colostomy mucous fistula POD# 3. Oliguric post op, now resolving. Patient in now RVR afib, with etiology being worked up. Plan: 1) New onset RVR Afib - With HR in the 200s this AM - s/p Cardizem 20 mg ivp, o.25 digoxin, 250 mg amiodorone bolus, now on po amiodorone. - HR still in the 130s, will resume po Lopressor 50 mg bid, and Cardizem drip - will correct electrolyte imbalance. - Cardiology rec appreciated, CTPE to r/o PE. Now on therapeutic lovenox. - Infectious versus post surgical etiology versus cardiac ischemia versus PE as the etiology. - CTPE negative for PE, + for consolidations. 2) NSTEMI - Elevated troponin with ST wave depression in the lateral leads. - Will continue to trend troponin. - s/p sublingual nitro for chest pain, and chewable asa. - on therapeutic Lovenox. - Continue lipitor, lopressor, - cardio rec appreciated 3) HAP- CTA with b/l consolidation. Repeat cultures sent, resume unasyn and add vanco 1gm q12 as per ID 4) Hypokalemia-repleted, will continue to monitor. 5) Hypomagnesemia- resolved 6) Hypophosphatemia- will replete and monitor. 7) Diverticulitis with intra-abdominal abscess with cutaneous fistula - s/p IR drain placement day # 9, - s/p sigmoid resection with colostomy mucous fistula POD# 4. - Post operative wound care as per surgery - Pain control with morphine prn and Tylenol prn - IS, OOBTC - puree diet - Intra-abdominal abscess grew ecoli. on unasyn. also on flagyl and micofungyn 8)KRIS- likely 2nd to ATN - Oliguria resolved, creat low - Nephro, Dr Velasco rec appreciated, IVF changed to NS for 24 hrs - Lasix prn for pulm congestion - strict I&Os. - Avoid NSAIDs. 9) Malnutrition with anasarca - s/p albumin infusion - albumin continue to decreases, worsening edema. Now on puree diet, will consider tube feeding. 10) Normocytic anemia - s/p 2 units prbc this admission - h/h 01/14.5 - will monitor for now. 11) h/o HTN- Hydralazine prn for htn. 12) Transaminitis-will continue to trend. 13) Vitamin D deficiency - po vitamin d 2000 14) Dementia- continue aricept 15) DVT prophylaxis: Lovenox and protonix. 16) Dispo- [facility]ITT[facility] when medically optimized. Patient, seen, examined, and case discussed with Dr Zuniga. <Aubrey Zuniga - Last Filed: 08/30/16 18:40> Objective - Vital Signs/Intake and Output Vital Signs (last 24 hours): Temp Pulse Resp BP Pulse Ox 95 F L 42 L 36 H 95/57 L 96 08/17/16 12:00 08/17/16 20:00 08/17/16 20:00 08/17/16 19:00 08/17/16 20:30 - Labs Labs: 08/17/16 05:00 08/17/16 05:00 PT 12.3 Seconds (9.9-11.8) H 08/15/16 14:50 INR 1.14 (0.93-1.08) H 08/15/16 14:50 APTT 34.8 Seconds (23.7-30.8) H 08/15/16 14:50 Attending/Attestation - Attestation I have personally seen and examined this patient.: Yes I have fully participated in the care of the patient.: Yes I have reviewed all pertinent clinical information, including history, physical exam and plan: Yes Notes (Text): 08/30/16 18:40 Medical record note made by the resident after discussion with my direction and input after the patient was personally seen and examined by me. I have reviewed the chart and agree that the record accurately reflects by personal performance of the history, physical exam, data review, and medical decision-making, in the course for the patient. I have also personally directed the plan of care.
[2016-08-10 06:36] LABS: ALB/GLOB RATIO 0.7 (1.1-1.8); ALKALINE PHOSPHATASE 166 U/L (38-133); ALT/SGPT 26 U/L (7-56); AST/SGOT 21 U/L (15-39); BILIRUBIN,TOTAL 0.6 mg/dL (0.2-1.3); BLOOD UREA NITROGEN 8 mg/dL (7-21); CALCIUM 7.4 mg/dL (8.4-10.5); CARBON DIOXIDE 21 mmol/L (21-33); CHLORIDE 112 mmol/L (98-107); GFR AFRICAN-AMERICAN > 60; GLUCOSE,RANDOM 84 mg/dL (70-110); MAGNESIUM 1.8 mg/dL (1.7-2.2); PHOSPHOROUS 2.4 mg/dL (2.5-4.5); POTASSIUM 3.2 mmol/L (3.6-5.0); SODIUM 137 mmol/L (132-148); TOTAL PROTEIN 4.5 g/dL (5.8-8.3)
[2016-08-10 06:37] LABS: BASO # 0.01 K/mm3 (0.0-2.0); BASO % 0.1 % (0.0-3.0); EOS # 0.1 (0.0-0.7); EOS % 0.5 % (1.5-5.0); GRAN # 9.32 (1.4-6.5); GRAN % 78.7 % (50.0-68.0); HEMATOCRIT 29.9 % (36.0-48.0); LYMPH # 1.5 (1.2-3.4); MEAN CELL VOLUME 91.4 fL (80.0-105.0); MEAN CORPUSCULAR HEMOGLOBIN 29.4 pg (25.0-35.0); MEAN CORPUSCULAR HGB CONC 32.1 g/dl (31.0-37.0); MEAN PLATELET VOLUME 9.6 fl (7.0-11.0); MONO # 0.9 (0.1-0.6); MONO % 7.7 % (1.0-6.0); PLATELET COUNT 347 10^3/uL (120.0-450.0); RED CELL DISTRIBUTION WIDTH 19.5 % (11.5-14.5); WHITE BLOOD COUNT 11.8 10^3/ul (4.5-11.0)
[2016-08-10] MEDS ORDERED: Potassium Phosphate 15 MMOLE in Sodium Chloride 0.9% 250 ML IVPB ONE (07:50)
[2016-08-10] MEDS ORDERED: Potassium Chloride 20 mEq/15 ml LIQ UD PO STA (07:50)
[2016-08-10] MEDS ORDERED: Digoxin 500 mcg/2ml (0.5 mg/2ml) Inj IVP ONE ×3 (08:15→13:34)
--- NOTE | 2016-08-10 08:34 | RAD ---
HISTORY: follow up. COMPARISON: 08/08/2016 FINDINGS: LUNGS: See below PLEURA: No significant pleural effusion identified, no pneumothorax apparent. CARDIOVASCULAR: There is mild cardiomegaly. Bilateral perihilar infiltrates. Slight improvement in left lower lobe infiltrate OSSEOUS STRUCTURES: No significant abnormalities. VISUALIZED UPPER ABDOMEN: Normal. OTHER FINDINGS: None. IMPRESSION: Bilateral perihilar infiltrates with slight improvement in left lower lobe infiltrate
[2016-08-10] MEDS: Pantoprazole 20 mg EC Tab PO SCH (08:42)
--- NOTE | 2016-08-10 08:49 | CP.PCM.PN ---
Subjective - Date & Time of Evaluation Date of Evaluation: 08/10/16 Time of Evaluation: 08:49 - Subjective Subjective: Surgery for Dr. Keita Pt s&e. Pt had rapid response for Afiv RVR this AM. Resting. Follows commands. Denies F/C/N/V/D/CP/SOB. 100.1 temp overnight noted. MInimal output on ostomy. Objective - Vital Signs/Intake and Output Vital Signs (last 24 hours): Temp Pulse Resp BP Pulse Ox 98.6 F 115 H 18 156/86 H 97 08/10/16 06:00 08/10/16 06:00 08/10/16 06:00 08/10/16 06:00 08/10/16 06:00 Intake and Output: 08/10/16 08/10/16 06:59 18:59 Intake Total 1120 Output Total 600 Balance 520 - Medications Medications: Current Medications Acetaminophen (Tylenol 650mg/20.3ml Solution Ud) 320 mg PO Q4 PRN PRN Reason: Fever >100.4 F Last Admin: 08/08/16 10:30 Dose: 320 mg Aspirin (Ecotrin) 81 mg PO DAILY [facility] Last Admin: 08/09/16 09:15 Dose: Not Given Atorvastatin Calcium (Lipitor) 40 mg PO DIN [facility] Last Admin: 08/09/16 18:21 Dose: Not Given Benzocaine/Menthol (Cepacol Sore Throat) 1 [place] MT Q2H PRN PRN Reason: Sore Throat Last Admin: 08/08/16 10:10 Dose: 1 burton Calcium Carbonate (Oscal) 500 mg PO DAILY [facility] Last Admin: 08/09/16 09:15 Dose: Not Given Cholecalciferol (Vitamin D) 2,000 iu PO DAILY [facility] Last Admin: 08/09/16 09:15 Dose: Not Given Clonidine HCl (Catapres Tts1 0.1 Mg/24 Hr) 1 patch TD Q7D@1000 [facility] Last Admin: 08/07/16 16:16 Dose: 1 patch Docusate Sodium (Colace) 100 mg PO TID [facility] Last Admin: 08/09/16 16:44 Dose: Not Given Donepezil HCl (Aricept) 10 mg PO HS [facility] Last Admin: 08/09/16 22:39 Dose: 10 mg Ferrous Sulfate (Feosol) 324 mg PO TID [facility] Last Admin: 08/09/16 18:21 Dose: Not Given Heparin Sodium (Porcine) (Heparin) 5,000 units SC Q8 [facility] PRN Reason: Protocol Last Admin: 08/10/16 05:14 Dose: 5,000 units Hydralazine HCl (Apresoline) 10 mg IVP Q6 PRN PRN Reason: Other Last Admin: 08/10/16 00:15 Dose: 10 mg Metronidazole (Flagyl) 500 mg in 100 mls @ 100 mls/hr IVPB Q8 [facility] PRN Reason: Protocol Last Admin: 08/10/16 05:15 Dose: 100 mls/hr Fluconazole (Diflucan Iv 200 Mg/100 Ml Ns) 100 mls @ 100 mls/hr IVPB DAILY [facility] PRN Reason: Protocol Last Admin: 08/09/16 14:43 Dose: 100 mls/hr Ampicillin Sodium/Sulbactam Sodium (Unasyn 1 Gm-0.5 Gm) 1 gm in 100 mls @ 100 mls/hr IVPB Q6 [facility] PRN Reason: Protocol Last Admin: 08/10/16 05:15 Dose: 100 mls/hr Dextrose/Sodium Chloride (Dextrose 5%/0.45% Ns 1000 Ml) 1,000 mls @ 50 mls/hr IV .Q20H [facility] Potassium Chloride (Potassium Chloride 20 Meq/100 Ml) 20 meq in 100 mls @ 50 mls/hr IVPB Q2H [facility] Stop: 08/10/16 11:59 Potassium Phosphate 15 mmole/ (Sodium Chloride) 255 mls @ 42.5 mls/hr IVPB ONCE ONE Stop: 08/10/16 13:49 Metoprolol Tartrate (Lopressor) 50 mg PO BID [facility] Last Admin: 08/09/16 18:22 Dose: Not Given Ondansetron HCl (Zofran Inj) 4 mg IVP Q6 PRN PRN Reason: Nausea/Vomiting Pantoprazole Sodium (Protonix Ec Tab) 20 mg PO ACB [facility] Last Admin: 08/09/16 07:49 Dose: Not Given Potassium Chloride (K-Dur 20 Meq Er Tab) 20 meq PO TID [facility] Stop: 08/11/16 10:00 Potassium Chloride (Potassium Chloride Oral Soln) 40 meq PO ONCE ONE Stop: 08/10/16 13:01 - Labs Labs: 08/10/16 05:55 08/10/16 05:55 PT 15.2 Seconds (9.9-11.8) H 08/07/16 11:30 INR 1.41 (0.93-1.08) H 08/07/16 11:30 APTT 32.7 Seconds (23.7-30.8) H 08/07/16 11:30 - Constitutional Appears: Chronically Ill - Head Exam Head Exam: ATRAUMATIC, NORMAL INSPECTION, NORMOCEPHALIC - Eye Exam Eye Exam: EOMI, Normal appearance, PERRL Pupil Exam: NORMAL ACCOMODATION, PERRL - ENT Exam ENT Exam: Mucous Membranes Moist, Normal Exam - Neck Exam Neck Exam: Full ROM, Normal Inspection. absent: Lymphadenopathy - Respiratory Exam Respiratory Exam: NORMAL BREATHING PATTERN - Cardiovascular Exam Cardiovascular Exam: Tachycardia - GI/Abdominal Exam GI & Abdominal Exam: Soft, Tenderness. absent: Distended, Firm, Guarding, Rigid Additional comments: TTP. Incision C/D/I. Ostomy in place: no signs of infection. [place]. Minimal output. - Exam Exam: NORMAL INSPECTION - Extremities Exam Extremities Exam: Full ROM, Normal Capillary Refill, Normal Inspection - Back Exam Back Exam: NORMAL INSPECTION - Skin Skin Exam: Dry, Intact, Normal Color, Warm. absent: Erythema Assessment and Plan - Assessment and Plan (Free Text) Assessment: 86F s/p sigmoid colon resection and colostomy ; POD#4 CXR: b/l low lobe infiltration Plan: - soft diet -Aspiration precaution - monitor for bowel function - Encourage out of bed to chair with PT - Monitor drain outputs - Medical management. - d/w Dr. Keita
[2016-08-10] MEDS ORDERED: diltiaZEM IVPB 100mg in NS 100 ML IV PRN ×2 (09:07→12:42)
[2016-08-10] MEDS: Amiodarone 150mg/3 ml vial ONE ×2 (09:40→10:01)
--- NOTE | 2016-08-10 09:41 | CP.PCM.PN ---
<Alta Viveros - Last Filed: 08/10/16 14:39> Subjective - Date & Time of Evaluation Date of Evaluation: 08/10/16 Time of Evaluation: 09:39 - Subjective Subjective: CC: Rapid Response 86 year old female with past medical history of HTN, CAD s/p stents, CHF, HLD, Alzeheimer's dementia, h/o cholecystectomy, Diverticulitis admitted with intra- abdominal abscess with cutaneous fistula s/p IR drain placement day # 9, s/p sigmoid resection with colostomy mucous fistula POD# 3 has rapid response called for rapid heart rate of 200. Patient was responding to panful stimuli and voice and following simple commands. Patient was given digoxin .25 mg right before rapid was called. HR at beginning of rapid response was 134 blood pressure was 148/71, 100% saturation and 98.7 degrees temp. Patient complained of chest pain and abd pain. She denies SOB. Objective - Vital Signs/Intake and Output Vital Signs (last 24 hours): Temp Pulse Resp BP Pulse Ox 98.6 F 115 H 18 156/86 H 97 08/10/16 06:00 08/10/16 06:00 08/10/16 06:00 08/10/16 06:00 08/10/16 06:00 Intake and Output: 08/10/16 08/10/16 06:59 18:59 Intake Total 1120 Output Total 600 Balance 520 - Medications Medications: Current Medications Acetaminophen (Tylenol 650mg/20.3ml Solution Ud) 320 mg PO Q4 PRN PRN Reason: Fever >100.4 F Last Admin: 08/08/16 10:30 Dose: 320 mg Aspirin (Aspirin Chewable) 81 mg PO DAILY [facility] Last Admin: 08/10/16 09:29 Dose: 81 mg Atorvastatin Calcium (Lipitor) 40 mg PO DIN [facility] Last Admin: 08/09/16 18:21 Dose: Not Given Benzocaine/Menthol (Cepacol Sore Throat) 1 burton MT Q2H PRN PRN Reason: Sore Throat Last Admin: 08/08/16 10:10 Dose: 1 burton Calcium Carbonate (Oscal) 500 mg PO DAILY [facility] Last Admin: 08/09/16 09:15 Dose: Not Given Cholecalciferol (Vitamin D) 2,000 iu PO DAILY [facility] Last Admin: 08/09/16 09:15 Dose: Not Given Clonidine HCl (Catapres Tts1 0.1 Mg/24 Hr) 1 patch TD Q7D@1000 [facility] Last Admin: 08/07/16 16:16 Dose: 1 patch Docusate Sodium (Colace) 100 mg PO TID [facility] Last Admin: 08/09/16 16:44 Dose: Not Given Donepezil HCl (Aricept) 10 mg PO HS [facility] Last Admin: 08/09/16 22:39 Dose: 10 mg Ferrous Sulfate (Feosol) 324 mg PO TID [facility] Last Admin: 08/09/16 18:21 Dose: Not Given Heparin Sodium (Porcine) (Heparin) 5,000 units SC Q8 [facility] PRN Reason: Protocol Last Admin: 08/10/16 05:14 Dose: 5,000 units Hydralazine HCl (Apresoline) 10 mg IVP Q6 PRN PRN Reason: Other Last Admin: 08/10/16 00:15 Dose: 10 mg Metronidazole (Flagyl) 500 mg in 100 mls @ 100 mls/hr IVPB Q8 [facility] PRN Reason: Protocol Last Admin: 08/10/16 05:15 Dose: 100 mls/hr Fluconazole (Diflucan Iv 200 Mg/100 Ml Ns) 100 mls @ 100 mls/hr IVPB DAILY [facility] PRN Reason: Protocol Last Admin: 08/09/16 14:43 Dose: 100 mls/hr Ampicillin Sodium/Sulbactam Sodium (Unasyn 1 Gm-0.5 Gm) 1 gm in 100 mls @ 100 mls/hr IVPB Q6 [facility] PRN Reason: Protocol Last Admin: 08/10/16 05:15 Dose: 100 mls/hr Dextrose/Sodium Chloride (Dextrose 5%/0.45% Ns 1000 Ml) 1,000 mls @ 50 mls/hr IV .Q20H [facility] Potassium Chloride (Potassium Chloride 20 Meq/100 Ml) 20 meq in 100 mls @ 50 mls/hr IVPB Q2H [facility] Stop: 08/10/16 11:59 Last Admin: 08/10/16 08:41 Dose: 50 mls/hr Potassium Phosphate 15 mmole/ (Sodium Chloride) 255 mls @ 42.5 mls/hr IVPB ONCE ONE Stop: 08/10/16 13:49 Diltiazem HCl 125 mg/ Sodium (Chloride) 125 mls @ 5 mls/hr IV .Q24H [facility]; 5 MG/ HR PRN Reason: Protocol Metoprolol Tartrate (Lopressor) 50 mg PO BID [facility] Last Admin: 08/09/16 18:22 Dose: Not Given Ondansetron HCl (Zofran Inj) 4 mg IVP Q6 PRN PRN Reason: Nausea/Vomiting Pantoprazole Sodium (Protonix Ec Tab) 20 mg PO ACB [facility] Last Admin: 08/10/16 08:42 Dose: 20 mg Potassium Chloride (K-Dur 20 Meq Er Tab) 20 meq PO TID [facility] Stop: 08/11/16 10:00 Potassium Chloride (Potassium Chloride Oral Soln) 40 meq PO ONCE ONE Stop: 08/10/16 13:01 - Labs Labs: 08/10/16 05:55 08/10/16 05:55 PT 15.2 Seconds (9.9-11.8) H 08/07/16 11:30 INR 1.41 (0.93-1.08) H 08/07/16 11:30 APTT 32.7 Seconds (23.7-30.8) H 08/07/16 11:30 - Constitutional Appears: Non-toxic, No Acute Distress - Head Exam Head Exam: ATRAUMATIC - ENT Exam ENT Exam: Mucous Membranes Moist - Respiratory Exam Respiratory Exam: Clear to Ausculation Bilateral. absent: Accessory Muscle Use , Rales, Rhonchi, Wheezes, Respiratory Distress - Cardiovascular Exam Cardiovascular Exam: Tachycardia, Irregular Rhythm - GI/Abdominal Exam GI & Abdominal Exam: Soft. absent: Tenderness Additional comments: colostomy bag present. drains noted - Extremities Exam Extremities Exam: absent: Calf Tenderness, Pedal Edema - Neurological Exam Neurological Exam: Alert, Awake - Skin Skin Exam: Dry, Intact, Warm Assessment and Plan - Assessment and Plan (Free Text) Assessment: A fib with RVR. EKG showed HR of 132, a fib with ischemic changes anterior leads Plan: 1. A fib with RVR - Lgsw, Dr. Morgan was called. Recommended cardizem 20 mg IVP which was given stat - Patient was then given nitro SL and aspirin 81 mg po - Nascar Driver was consulted and recommended giving amiodarone 150 mg bolus to convert HR which was given - Blood work ordered: CBC, BMP, cardiac iso enzymes, blood cultures. - Further care as per Dr. Cruz Case discussed with House doctor, Dr. Bennett. <Marjan Bennett - Last Filed: 08/10/16 14:59> Objective - Vital Signs/Intake and Output Vital Signs (last 24 hours): Temp Pulse Resp BP Pulse Ox 98.1 F 113 H 20 118/73 97 08/10/16 12:00 08/10/16 14:38 08/10/16 12:00 08/10/16 12:00 08/10/16 06:00 Intake and Output: 08/10/16 08/10/16 06:59 18:59 Intake Total 1120 Output Total 600 Balance 520 - Medications Medications: Current Medications Acetaminophen (Tylenol 650mg/20.3ml Solution Ud) 320 mg PO Q4 PRN PRN Reason: Fever >100.4 F Last Admin: 08/08/16 10:30 Dose: 320 mg Amiodarone HCl (Cordarone) 400 mg PO BID [facility] Last Admin: 08/10/16 11:58 Dose: 400 mg Aspirin (Aspirin Chewable) 81 mg PO DAILY [facility] Last Admin: 08/10/16 09:29 Dose: 81 mg Atorvastatin Calcium (Lipitor) 40 mg PO DIN [facility] Last Admin: 08/09/16 18:21 Dose: Not Given Benzocaine/Menthol (Cepacol Sore Throat) 1 burton MT Q2H PRN PRN Reason: Sore Throat Last Admin: 08/08/16 10:10 Dose: 1 burton Calcium Carbonate (Oscal) 500 mg PO DAILY [facility] Last Admin: 08/10/16 09:49 Dose: Not Given Cholecalciferol (Vitamin D) 2,000 iu PO DAILY [facility] Last Admin: 08/10/16 09:49 Dose: Not Given Clonidine HCl (Catapres Tts1 0.1 Mg/24 Hr) 1 patch TD Q7D@1000 [facility] Last Admin: 08/07/16 16:16 Dose: 1 patch Docusate Sodium (Colace) 100 mg PO TID [facility] Last Admin: 08/10/16 13:21 Dose: Not Given Donepezil HCl (Aricept) 10 mg PO HS [facility] Last Admin: 08/09/16 22:39 Dose: 10 mg Enoxaparin Sodium (Lovenox) 60 mg SC Q12 [facility] PRN Reason: Protocol Last Admin: 08/10/16 11:58 Dose: 60 mg Ferrous Sulfate (Feosol) 324 mg PO TID [facility] Last Admin: 08/10/16 13:21 Dose: Not Given Hydralazine HCl (Apresoline) 10 mg IVP Q6 PRN PRN Reason: Other Last Admin: 08/10/16 00:15 Dose: 10 mg Metronidazole (Flagyl) 500 mg in 100 mls @ 100 mls/hr IVPB Q8 [facility] PRN Reason: Protocol Last Admin: 08/10/16 05:15 Dose: 100 mls/hr Fluconazole (Diflucan Iv 200 Mg/100 Ml Ns) 100 mls @ 100 mls/hr IVPB DAILY [facility] PRN Reason: Protocol Last Admin: 08/09/16 14:43 Dose: 100 mls/hr Ampicillin Sodium/Sulbactam Sodium (Unasyn 1 Gm-0.5 Gm) 1 gm in 100 mls @ 100 mls/hr IVPB Q6 [facility] PRN Reason: Protocol Last Admin: 08/10/16 05:15 Dose: 100 mls/hr Dextrose/Sodium Chloride (Dextrose 5%/0.9% Ns 1000 Ml) 1,000 mls @ 75 mls/hr IV .[id number] [facility] Stop: 08/11/16 12:46 Diltiazem HCl 125 mg/ Sodium (Chloride) 125 mls @ 5 mls/hr IV .Q24H [facility]; 5 MG/ HR PRN Reason: Protocol Last Admin: 08/10/16 13:21 Dose: Not Given Vancomycin HCl (Vancomycin 1gm) 1 g in 250 mls @ 167 mls/hr IVPB Q12 [facility] PRN Reason: Protocol Metoprolol Tartrate (Lopressor) 50 mg PO BID [facility] Last Admin: 08/09/16 18:22 Dose: Not Given Ondansetron HCl (Zofran Inj) 4 mg IVP Q6 PRN PRN Reason: Nausea/Vomiting Pantoprazole Sodium (Protonix Ec Tab) 20 mg PO ACB [facility] Last Admin: 08/10/16 08:42 Dose: 20 mg - Labs Labs: 08/10/16 09:30 08/10/16 09:30 PT 15.2 Seconds (9.9-11.8) H 08/07/16 11:30 INR 1.41 (0.93-1.08) H 08/07/16 11:30 APTT 32.7 Seconds (23.7-30.8) H 08/07/16 11:30 Attending/Attestation - Attestation I have personally seen and examined this patient.: Yes I have fully participated in the care of the patient.: Yes I have reviewed all pertinent clinical information, including history, physical exam and plan: Yes
[2016-08-10 09:42] LABS: HEMATOCRIT 31.5 % (36.0-48.0); MEAN CORPUSCULAR HEMOGLOBIN 29.2 pg (25.0-35.0); MEAN CORPUSCULAR HGB CONC 32.1 g/dl (31.0-37.0); MEAN PLATELET VOLUME 9.3 fl (7.0-11.0); RED CELL DISTRIBUTION WIDTH 19.6 % (11.5-14.5); WHITE BLOOD COUNT 13.3 10^3/ul (4.5-11.0)
[2016-08-10] MEDS: Amiodarone 150 mg/D5W 100 ml 150 MG/100 ML BAG IVPB STA ×2 (09:44→11:51)
[2016-08-10] MEDS: Potassium Chloride 20 mEq ER Tab PO SCH ×2 (09:48→13:22)
[2016-08-10 09:51] LABS: BLOOD UREA NITROGEN 8 mg/dL (7-21); CALCIUM 7.5 mg/dL (8.4-10.5); CARBON DIOXIDE 21 mmol/L (21-33); CHLORIDE 111 mmol/L (98-107); GFR AFRICAN-AMERICAN > 60; GLUCOSE,RANDOM 115 mg/dL (70-110); POTASSIUM 3.8 mmol/L (3.6-5.0); SODIUM 137 mmol/L (132-148)
--- NOTE | 2016-08-10 11:34 | CP.CCUPN ---
CCU Subjective - Physician Review Events Since Last Encounter (Free Text): 08/10/16 11:27 86 y/o F who was recently transfered out of the ICU s/p Hartmans pouch . I was called by the floor medicine team due to increased HR possibly A/flutter/ SVT The patient was not responding to Cardizem IVP. Upon examining the patient she seems lethargic but arousable and her HR was elevated w/ an adequate BP. Amiodarone 150 mg bolus was ordered . CCU Objective - Vital Signs / Intake & Output Vital Signs (Last 4 hours): Vital Signs Pulse BP 08/10/16 10:01 134 H 110/66 Intake and Output (Last 8hrs): Intake & Output 08/09/16 08/10/16 08/10/16 22:59 06:59 14:59 Intake Total 600 1120 Output Total 727 600 Balance -127 520 Weight 312 lb 9.6 oz Intake: IV 1000 Left Upper arm 1000 Oral 600 120 Output: Drainage 125 200 Left Abdomen 100 Right Abdomen 100 left abdomen 75 right abdomen 50 Urine 602 400 Urethral (Lozano) 602 Urine, Voided 400 Other: # Bowel Movements 1 0 - Physical Exam Head: Positive for: Atraumatic Pupils: Positive for: PERRL Extroacular Muscles: Positive for: EOMI Conjunctiva: Positive for: Normal Ears: Positive for: Normal Mouth: Positive for: Moist Mucous Membranes Nose (External): Positive for: Atraumatic Neck: Positive for: Normal Range of Motion (R CVC catheter) Respiratory/Chest: Positive for: Clear to Auscultation, Good Air Exchange. Negative for: Respiratory Distress, Accessory Muscle Use Cardiovascular: Positive for: Regular Rate and Rhythm, Normal S1, S2, Tachycardic. Negative for: Murmurs Abdomen: Positive for: Tenderness (minimal along incision sites and around drain insertion sites, B/L lower quadrant Fortino drains in place with scant serosanguinous output), Ostomy Tubes (ostomy bag with scant brown liquid output , stoma pink, non bloody). Negative for: Distention, Normal Bowel Sounds ( hypoactive), Peritoneal Signs, Rebound Back: Positive for: Normal Inspection Upper Extremity: Positive for: Edema (B/L, minimal). Negative for: Normal Inspection Lower Extremity: Positive for: Edema, Tenderness (B/L). Negative for: Normal Inspection Neurological: Positive for: GCS=15, CN II-XII Intact Skin: Positive for: Warm, Dry, Normal Color. Negative for: Rashes Psychiatric: Positive for: Alert, Oriented x 3, Normal Concentration. Negative for: Normal Insight (demented) - Medications Active Medications: Active Medications Generic Name Dose Route Start Last Admin Trade Name Freq PRN Reason Stop Dose Admin Acetaminophen 320 mg 08/08/16 10:03 08/08/16 10:30 Tylenol 650mg/20.3ml Solution Ud PO 320 mg Q4 PRN Administration Fever >100.4 F Amiodarone HCl 400 mg 08/10/16 10:30 Cordarone PO BID [facility] Aspirin 81 mg 08/10/16 10:00 08/10/16 09:29 Aspirin Chewable PO 81 mg DAILY [facility] Administration Atorvastatin Calcium 40 mg 07/31/16 17:00 08/09/16 18:21 Lipitor PO Not Given DIN [facility] Benzocaine/Menthol 1 burton 08/07/16 14:23 08/08/16 10:10 Cepacol Sore Throat MT 1 burton Q2H PRN Administration Sore Throat Calcium Carbonate 500 mg 08/02/16 10:00 08/10/16 09:49 Oscal PO Not Given DAILY [facility] Cholecalciferol 2,000 iu 08/05/16 10:00 08/10/16 09:49 Vitamin D PO Not Given DAILY [facility] Clonidine HCl 1 patch 08/07/16 15:00 08/07/16 16:16 Catapres Tts1 0.1 Mg/24 Hr TD 1 patch Q7D@1000 [facility] Administration Docusate Sodium 100 mg 07/31/16 10:00 08/10/16 09:47 Colace PO Not Given TID [facility] Donepezil HCl 10 mg 07/31/16 22:00 08/09/16 22:39 Aricept PO 10 mg HS [facility] Administration Enoxaparin Sodium 60 mg 08/10/16 11:00 Lovenox SC Q12 [facility] Protocol Ferrous Sulfate 324 mg 07/31/16 10:00 08/10/16 09:48 Feosol PO Not Given TID [facility] Hydralazine HCl 10 mg 08/08/16 15:44 08/10/16 00:15 Apresoline IVP 10 mg Q6 PRN Administration Other Metronidazole 500 mg in 100 mls @ 100 mls/hr 07/31/16 06:00 08/10/16 05:15 Flagyl IVPB 100 mls/hr Q8 [facility] Administration Protocol Fluconazole 100 mls @ 100 mls/hr 08/02/16 16:15 08/09/16 14:43 Diflucan Iv 200 Mg/100 Ml Ns IVPB 100 mls/hr DAILY [facility] Administration Protocol Ampicillin Sodium/Sulbactam Sodium 1 gm in 100 mls @ 100 mls/hr 08/09/16 12: 00 08/10/16 05:15 Unasyn 1 Gm-0.5 Gm IVPB 100 mls/hr Q6 [facility] Administration Protocol Dextrose/Sodium Chloride 1,000 mls @ 50 mls/hr 08/09/16 17:11 08/10/16 09:40 Dextrose 5%/0.45% Ns 1000 Ml IV Not Given .Q20H [facility] Potassium Chloride 20 meq in 100 mls @ 50 mls/hr 08/10/16 08:00 08/10/16 10: 45 Potassium Chloride 20 Meq/100 Ml IVPB 08/10/16 11:59 50 mls/hr Q2H [facility] Administration Potassium Phosphate 15 mmole/ 255 mls @ 42.5 mls/hr 08/10/16 07:50 08/10/16 10:06 Sodium Chloride IVPB 08/10/16 13:49 42.5 mls/hr ONCE ONE Administration Diltiazem HCl 125 mg/ Sodium 125 mls @ 5 mls/hr 08/10/16 09:30 08/10/16 09:47 Chloride IV Not Given .Q24H [facility] Protocol 5 MG/HR Metoprolol Tartrate 50 mg 07/31/16 10:00 08/09/16 18:22 Lopressor PO Not Given BID [facility] Ondansetron HCl 4 mg 08/06/16 12:24 Zofran Inj IVP Q6 PRN Nausea/Vomiting Pantoprazole Sodium 20 mg 07/31/16 07:30 08/10/16 08:42 Protonix Ec Tab PO 20 mg ACB [facility] Administration Potassium Chloride 20 meq 08/10/16 10:00 08/10/16 09:48 K-Dur 20 Meq Er Tab PO 08/11/16 10:00 Not Given TID [facility] Potassium Chloride 40 meq 08/10/16 13:00 Potassium Chloride Oral Soln PO 08/10/16 13:01 ONCE ONE - Patient Studies Lab Studies: Lab Studies 08/10/16 08/10/16 08/10/16 Range/Units 09:30 09:30 05:55 WBC 13.3 H (4.5-11.0) 10^3/ul RBC 3.46 L (3.5-6.1) 10^6/uL Hgb 10.1 L (12.0-16.0) gm/dL Hct 31.5 L (36.0-48.0) % MCV 91.0 (80.0-105.0) fL MCH 29.2 (25.0-35.0) pg MCHC 32.1 (31.0-37.0) g/dl RDW 19.6 H (11.5-14.5) % Plt Count 394 (120.0-450.0) 10^3/uL MPV 9.3 (7.0-11.0) fl Gran % (50.0-68.0) % Lymph % (Auto) (22.0-35.0) % Sutter % (Auto) (1.0-6.0) % Eos % (Auto) (1.5-5.0) % Baso % (Auto) (0.0-3.0) % Gran # (1.4-6.5) Lymph # (1.2-3.4) Sutter # (0.1-0.6) Eos # (0.0-0.7) Baso # (0.0-2.0) K/mm3 Sodium 137 137 (132-148) mmol/L Potassium 3.8 3.2 L (3.6-5.0) mmol/L Chloride 111 H 112 H (95-110) mmol/L Carbon Dioxide 21 21 (21-33) mmol/L Anion Gap 9 L 7 L (10-20) BUN 8 8 (7-21) mg/dL Creatinine 0.4 L 0.4 L (0.5-1.4) mg/dL Est GFR ( Amer) > 60 > 60 Est GFR (Non-Af Amer) > 60 > 60 Random Glucose 115 H 84 (70-110) mg/dL Calcium 7.5 L 7.4 L (8.4-10.5) mg/dL Phosphorus 2.4 L (2.5-4.5) mg/dL Magnesium 1.8 (1.7-2.2) mg/dL Total Bilirubin 0.6 (0.2-1.3) mg/dL AST 21 (15-39) U/L ALT 26 (7-56) U/L Alkaline Phosphatase 166 H (38-133) U/L Lactate Dehydrogenase 594 (333-699) U/L Total Creatine Kinase 42 (35-230) U/L Troponin I 0.30 H* D ng/mL Total Protein 4.5 L (5.8-8.3) g/dL Albumin 1.8 L (3.0-4.8) g/dL Globulin 2.6 gm/dL Albumin/Globulin Ratio 0.7 L (1.1-1.8) 08/10/16 08/09/16 Range/Units 05:55 18:57 WBC 11.8 H D (4.5-11.0) 10^3/ul RBC 3.27 L (3.5-6.1) 10^6/uL Hgb 9.6 L (12.0-16.0) gm/dL Hct 29.9 L (36.0-48.0) % MCV 91.4 (80.0-105.0) fL MCH 29.4 (25.0-35.0) pg MCHC 32.1 (31.0-37.0) g/dl RDW 19.5 H (11.5-14.5) % Plt Count 347 (120.0-450.0) 10^3/uL MPV 9.6 (7.0-11.0) fl Gran % 78.7 H (50.0-68.0) % Lymph % (Auto) 13.0 L (22.0-35.0) % Sutter % (Auto) 7.7 H (1.0-6.0) % Eos % (Auto) 0.5 L (1.5-5.0) % Baso % (Auto) 0.1 (0.0-3.0) % Gran # 9.32 H (1.4-6.5) Lymph # 1.5 (1.2-3.4) Sutter # 0.9 H (0.1-0.6) Eos # 0.1 (0.0-0.7) Baso # 0.01 (0.0-2.0) K/mm3 Sodium 137 (132-148) mmol/L Potassium 3.5 L (3.6-5.0) mmol/L Chloride 112 H (95-110) mmol/L Carbon Dioxide 22 (21-33) mmol/L Anion Gap 7 L (10-20) BUN 8 (7-21) mg/dL Creatinine 0.4 L (0.5-1.4) mg/dL Est GFR ( Amer) > 60 Est GFR (Non-Af Amer) > 60 Random Glucose 93 (70-110) mg/dL Calcium 7.3 L (8.4-10.5) mg/dL Phosphorus (2.5-4.5) mg/dL Magnesium 1.9 (1.7-2.2) mg/dL Total Bilirubin (0.2-1.3) mg/dL AST (15-39) U/L ALT (7-56) U/L Alkaline Phosphatase (38-133) U/L Lactate Dehydrogenase (333-699) U/L Total Creatine Kinase (35-230) U/L Troponin I ng/mL Total Protein (5.8-8.3) g/dL Albumin (3.0-4.8) g/dL Globulin gm/dL Albumin/Globulin Ratio (1.1-1.8) Laboratory Results - last 24 hr 08/09/16 08/10/16 08/10/16 18:57 05:55 05:55 WBC 11.8 H D RBC 3.27 L Hgb 9.6 L Hct 29.9 L MCV 91.4 MCH 29.4 MCHC 32.1 RDW 19.5 H Plt Count 347 MPV 9.6 Gran % 78.7 H Lymph % (Auto) 13.0 L Sutter % (Auto) 7.7 H Eos % (Auto) 0.5 L Baso % (Auto) 0.1 Gran # 9.32 H Lymph # 1.5 Sutter # 0.9 H Eos # 0.1 Baso # 0.01 Sodium 137 137 Potassium 3.5 L 3.2 L Chloride 112 H 112 H Carbon Dioxide 22 21 Anion Gap 7 L 7 L BUN 8 8 Creatinine 0.4 L 0.4 L Est GFR ( Amer) > 60 > 60 Est GFR (Non-Af Amer) > 60 > 60 Random Glucose 93 84 Calcium 7.3 L 7.4 L Phosphorus 2.4 L Magnesium 1.9 1.8 Total Bilirubin 0.6 AST 21 ALT 26 Alkaline Phosphatase 166 H Lactate Dehydrogenase Total Creatine Kinase Troponin I Total Protein 4.5 L Albumin 1.8 L Globulin 2.6 Albumin/Globulin Ratio 0.7 L 08/10/16 08/10/16 09:30 09:30 WBC 13.3 H RBC 3.46 L Hgb 10.1 L Hct 31.5 L MCV 91.0 MCH 29.2 MCHC 32.1 RDW 19.6 H Plt Count 394 MPV 9.3 Gran % Lymph % (Auto) Sutter % (Auto) Eos % (Auto) Baso % (Auto) Gran # Lymph # Sutter # Eos # Baso # Sodium 137 Potassium 3.8 Chloride 111 H Carbon Dioxide 21 Anion Gap 9 L BUN 8 Creatinine 0.4 L Est GFR ( Amer) > 60 Est GFR (Non-Af Amer) > 60 Random Glucose 115 H Calcium 7.5 L Phosphorus Magnesium Total Bilirubin AST ALT Alkaline Phosphatase Lactate Dehydrogenase 594 Total Creatine Kinase 42 Troponin I 0.30 H* D Total Protein Albumin Globulin Albumin/Globulin Ratio EKG/Cardiology Studies: Cardiology / EKG Studies 08/10/16 08:38 EKG [ELECTROCARDIOGRAM] Stat Comment: Reason For Exam: ARRYTHMIA Review of Systems - Review of Systems Systems not reviewed;Unavailable: Altered Mental Status Critical Care Progress Note - Ventilator Checklist PUD Prophalyxis: Yes DVT Prophylaxis: Yes - Nutrition Nutrition: Nutrition Category Date Time Status Heart Healthy Diet [DIET] Diets 08/09/16 Dinner Ordered Assessment/Plan - Assessment and Plan (Free Text) Assessment: 86 y/o W/ Rapid A flutter/ SVT Unclear cause but likely secondary to possible brewing infection. Would monitor for new infection, cx to be drawn . Broad spectrum abx to continue Amiodarone 150mg Bolus given and started on P.O amiodarone. If needed the Amiodarone 18hr protocol can start if HR sustains> 130 or if BP < 90. Cardiology consulted to evaluate further. Surgical team following for post op Hartmans procedure and concern for intra abdominal infection. Please call the ICU if needed. cc time 65 min
[2016-08-10] MEDS: Enoxaparin 60 mg Syringe SC SCH ×2 (11:58→22:30)
[2016-08-10] MEDS ORDERED: Iodixanol 320 MG/ML 100 ML BOTTLE IV ONE (12:05)
[2016-08-10] MEDS ORDERED: Sodium Chloride 0.9% 250 ML IV STA (12:36)
--- NOTE | 2016-08-10 12:37 | PN ---
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 The alona larson also has coronary artery disease status post coronary stenting in April of this year with a bare metal stent. The patient does have a history of GI bleeding in the past. The patient did repo rt chest pain today. PHYSICAL EXAMINATION: VITAL SIGNS: Blood pressure 110/66, heart rate 134, temperature 98.6, respiration 18. HEENT: Pale conjunctivae. CHEST: Diminished breath sounds over the bases. HEART: S1, S2 irregular. EXTREMITIES: 1+ pitting edema. LABORATORIES: Hemoglobin and hematocrit 10.1 and 31.5, white count and platelet count are 15.3 and 3 94,000. SMA-7: Sodium 137, potassium 3.8, chloride 111, CO2 21, glucose 115, BUN 8, creatinine 0.4. Troponin 0.3. EKG revealed atrial fibrillation with rapid ventricular response at a rate of 132, p ossible anterior infarct of indeterminate age. Consider lateral ischemia versus digitalis effect. T he patient had received 0.25 mg of IV digoxin. ASSESSMENT: 1. New onset atrial fibrillation. 2. Chest pain, rule out pulmonary infarction. 3. Rule out myocardial infarction. 4. Status post exploratory laparotomy, Brad's procedure for colovesical fistula. RECOMMENDATIONS: The case was discussed at length with the medical team. The patient will be starte d on therapeutic subcutaneous Lovenox, stat CT angio of the chest was ordered. In the meantime, the patient will be maintained on aspirin 81 mg once a day, clonidine patch 0.5 mg daily, amiodarone was started with an intravenous bolus followed by 400 mg orally twice a day by the plasterer maintenance. Continue Lipitor 40 mg once a day, Lopressor 50 mg twice a day. Eugenio Cruz MD cc: [id number] TT: 08/10/2016 12:36:33 Confirmation # [id number] Dictation # [id number] reymundo
[2016-08-10] MEDS ORDERED: Dextrose 5%/0.9% NS 1,000 ML IV SCH (12:45)
--- NOTE | 2016-08-10 12:56 | CT ---
PROCEDURE: CT Chest with contrast (Pulmonary Angiogram) HISTORY: r/o PE COMPARISON: None available. TECHNIQUE: Axial computed tomography images were obtained of the chest in the pulmonary arterial phase of enhancement. Coronal and sagittal reformatted images were created and reviewed. This CT exam was performed using one or more of the following dose reduction techniques: Automated exposure control, adjustment of the mA and/or kV according to patient size, and/or use of iterative reconstruction technique. Intravenous contrast dose: 100 cc of Visipaque Radiation dose: Total exam DLP = 532 mGy-cm. FINDINGS: PULMONARY ARTERIES: Unremarkable. No pulmonary embolism. AORTA: No acute findings. No thoracic aortic aneurysm. LUNGS: There is consolidation of the lung bases adjacent to the large effusions PLEURAL SPACES: Large bilateral pleural effusions are seen which extend to the lung apices. HEART: Unremarkable. No cardiomegaly. No significant pericardial effusion. LYMPH NODES: No lymphadenopathy. BONES, CHEST WALL: Unremarkable. No fracture or destructive lesion OTHER FINDINGS: There is a perinephric fluid collection on the left. This was also identified on the ultrasound from 08/09 IMPRESSION: Large pleural effusions and bibasilar consolidation. No evidence of pulmonary embolus.
[2016-08-10] MEDS ORDERED: Potassium Chloride 40 mEq/30 ml LIQ UD PO ONE (13:00)
--- NOTE | 2016-08-10 13:47 | CP.PCM.PN ---
Subjective - Date & Time of Evaluation Date of Evaluation: 08/10/16 Time of Evaluation: 13:00 - Subjective Subjective: seen and examined this am w/ episodes of hr going into 200's s/p ct angio this am Objective - Vital Signs/Intake and Output Vital Signs (last 24 hours): Temp Pulse Resp BP Pulse Ox 98.1 F 86 20 118/73 97 08/10/16 12:00 08/10/16 12:00 08/10/16 12:00 08/10/16 12:00 08/10/16 06:00 Intake and Output: 08/10/16 08/10/16 06:59 18:59 Intake Total 1120 Output Total 600 Balance 520 - Medications Medications: Current Medications Acetaminophen (Tylenol 650mg/20.3ml Solution Ud) 320 mg PO Q4 PRN PRN Reason: Fever >100.4 F Last Admin: 08/08/16 10:30 Dose: 320 mg Amiodarone HCl (Cordarone) 400 mg PO BID [facility] Last Admin: 08/10/16 11:58 Dose: 400 mg Aspirin (Aspirin Chewable) 81 mg PO DAILY [facility] Last Admin: 08/10/16 09:29 Dose: 81 mg Atorvastatin Calcium (Lipitor) 40 mg PO DIN [facility] Last Admin: 08/09/16 18:21 Dose: Not Given Benzocaine/Menthol (Cepacol Sore Throat) 1 [place] MT Q2H PRN PRN Reason: Sore Throat Last Admin: 08/08/16 10:10 Dose: 1 burton Calcium Carbonate (Oscal) 500 mg PO DAILY [facility] Last Admin: 08/10/16 09:49 Dose: Not Given Cholecalciferol (Vitamin D) 2,000 iu PO DAILY [facility] Last Admin: 08/10/16 09:49 Dose: Not Given Clonidine HCl (Catapres Tts1 0.1 Mg/24 Hr) 1 patch TD Q7D@1000 [facility] Last Admin: 08/07/16 16:16 Dose: 1 patch Docusate Sodium (Colace) 100 mg PO TID [facility] Last Admin: 08/10/16 13:21 Dose: Not Given Donepezil HCl (Aricept) 10 mg PO HS [facility] Last Admin: 08/09/16 22:39 Dose: 10 mg Enoxaparin Sodium (Lovenox) 60 mg SC Q12 [facility] PRN Reason: Protocol Last Admin: 08/10/16 11:58 Dose: 60 mg Ferrous Sulfate (Feosol) 324 mg PO TID [facility] Last Admin: 08/10/16 13:21 Dose: Not Given Hydralazine HCl (Apresoline) 10 mg IVP Q6 PRN PRN Reason: Other Last Admin: 08/10/16 00:15 Dose: 10 mg Metronidazole (Flagyl) 500 mg in 100 mls @ 100 mls/hr IVPB Q8 [facility] PRN Reason: Protocol Last Admin: 08/10/16 05:15 Dose: 100 mls/hr Fluconazole (Diflucan Iv 200 Mg/100 Ml Ns) 100 mls @ 100 mls/hr IVPB DAILY [facility] PRN Reason: Protocol Last Admin: 08/09/16 14:43 Dose: 100 mls/hr Ampicillin Sodium/Sulbactam Sodium (Unasyn 1 Gm-0.5 Gm) 1 gm in 100 mls @ 100 mls/hr IVPB Q6 [facility] PRN Reason: Protocol Last Admin: 08/10/16 05:15 Dose: 100 mls/hr Potassium Phosphate 15 mmole/ (Sodium Chloride) 255 mls @ 42.5 mls/hr IVPB ONCE ONE Stop: 08/10/16 13:49 Last Admin: 08/10/16 10:06 Dose: 42.5 mls/hr Dextrose/Sodium Chloride (Dextrose 5%/0.9% Ns 1000 Ml) 1,000 mls @ 75 mls/hr IV .[id number] [facility] Stop: 08/11/16 12:46 Diltiazem HCl 125 mg/ Sodium (Chloride) 125 mls @ 5 mls/hr IV .Q24H [facility]; 5 MG/ HR PRN Reason: Protocol Last Admin: 08/10/16 13:21 Dose: Not Given Vancomycin HCl (Vancomycin 1gm) 1 g in 250 mls @ 167 mls/hr IVPB Q12 [facility] PRN Reason: Protocol Metoprolol Tartrate (Lopressor) 50 mg PO BID [facility] Last Admin: 08/09/16 18:22 Dose: Not Given Ondansetron HCl (Zofran Inj) 4 mg IVP Q6 PRN PRN Reason: Nausea/Vomiting Pantoprazole Sodium (Protonix Ec Tab) 20 mg PO ACB [facility] Last Admin: 08/10/16 08:42 Dose: 20 mg - Labs Labs: 08/10/16 09:30 08/10/16 09:30 PT 15.2 Seconds (9.9-11.8) H 08/07/16 11:30 INR 1.41 (0.93-1.08) H 08/07/16 11:30 APTT 32.7 Seconds (23.7-30.8) H 08/07/16 11:30 - Constitutional Appears: Chronically Ill - Head Exam Head Exam: ATRAUMATIC - Eye Exam Eye Exam: Normal appearance - Neck Exam Neck Exam: Normal Inspection - Respiratory Exam Additional comments: dec at bases - Cardiovascular Exam Cardiovascular Exam: +S1, +S2 - GI/Abdominal Exam Additional comments: soft + drain and ostomy - Extremities Exam Additional comments: 1 + edema - Neurological Exam Additional comments: opens eyes to voice - Psychiatric Exam Psychiatric exam: Flat Affect - Skin Skin Exam: Normal Color Assessment and Plan - Assessment and Plan (Free Text) Assessment: Assessment: ARF/ HTN/ Intrabdominal Abscess/ SVT/ Anemia / hypokalemia plan: estelle - cr stable uop this am has been a bit low - likely an element of poor renal blood flow from severe hypoalbuminemia and 3rd spacing - given that she went for contrast enhanced CT will be at risk for RAHEEM - i gave bolus of 250 ns and starting changed fluid to isotonic saline for 12 hours. f/u cardiology re: svt on abx per primary team er primary team hypokalemia repleted
--- NOTE | 2016-08-10 14:06 | CARD ---
APPROVED REPORT EKG Measurement Heart [id number] <Conclusion> Atrial fibrillation with rapid ventricular response with premature ventricular or aberrantly conducted complexes Cannot rule out Anterior infarct, age undetermined ST & T wave abnormality, consider lateral ischemia or digitalis effect Abnormal ECG
[2016-08-10 17:23] LABS: TROPONIN I 0.3 ng/mL
[2016-08-10] MEDS: Fluconazole IV 200mg/100 ml NS 100 ML IVPB SCH (17:41)
--- NOTE | 2016-08-10 18:02 | CP.PCM.PN ---
Subjective - Date & Time of Evaluation Date of Evaluation: 08/10/16 Time of Evaluation: 16:00 - Subjective Subjective: Infectious Disease Follow Up: August 10, 2016 85 yo female sent to [facility] from Dr. Keita's office after discovery of purulent drainage from left lower abdominal drain site. She has a history of hypertension, GI bleed, CAD with stents, anemia, and osteoporosis. Many of her hospitalizations last year were for GI bleed. 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 She is currently on ceftriaxone and Flagyl. This will cover most recurrences of E. coli. Taken to IR by Dr. Zaldivar on Friday. 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 IR drain is still showing fecal material. E. coli in cultures of wound site. Yeast in urine cultures. Tre-colectomy yesteday with monitoring post surgery in MICU. Patient transferred to medical floor. Low urine output. Noted events of previous night where patient was briefly unresponsive and finally awoke after several attempts with deep chest rubs. Patient was lethargic this morning according to notes. Today the patient had bouts of tachycardia up to 200 bpm. Reported to be by resident that the patient had fevers up to 101.2 F today. I had suggested Vancomycin use based on that information. I do not see any recording of fevers in the chart at this point. Reports are of tachycardia. The patient did have a CT scan that showed bilateral pleural effusions which was reported to me by the medical management specialist. Vancomycin added for potential hospital acquired pneumonia. Objective - Vital Signs/Intake and Output Vital Signs (last 24 hours): Temp Pulse Resp BP Pulse Ox 98.1 F 113 H 20 118/73 97 08/10/16 12:00 08/10/16 14:38 08/10/16 12:00 08/10/16 12:00 08/10/16 06:00 Intake and Output: 08/10/16 08/10/16 06:59 18:59 Intake Total 1120 360 Output Total 600 250 Balance 520 110 - Medications Medications: Current Medications Acetaminophen (Tylenol 650mg/20.3ml Solution Ud) 320 mg PO Q4 PRN PRN Reason: Fever >100.4 F Last Admin: 08/08/16 10:30 Dose: 320 mg Amiodarone HCl (Cordarone) 400 mg PO BID [facility] Last Admin: 08/10/16 11:58 Dose: 400 mg Aspirin (Aspirin Chewable) 81 mg PO DAILY [facility] Last Admin: 08/10/16 09:29 Dose: 81 mg Atorvastatin Calcium (Lipitor) 40 mg PO DIN [facility] Last Admin: 08/09/16 18:21 Dose: Not Given Benzocaine/Menthol (Cepacol Sore Throat) 1 [place] MT Q2H PRN PRN Reason: Sore Throat Last Admin: 08/08/16 10:10 Dose: 1 burton Calcium Carbonate (Oscal) 500 mg PO DAILY [facility] Last Admin: 08/10/16 09:49 Dose: Not Given Cholecalciferol (Vitamin D) 2,000 iu PO DAILY [facility] Last Admin: 08/10/16 09:49 Dose: Not Given Clonidine HCl (Catapres Tts1 0.1 Mg/24 Hr) 1 patch TD Q7D@1000 [facility] Last Admin: 08/07/16 16:16 Dose: 1 patch Docusate Sodium (Colace) 100 mg PO TID [facility] Last Admin: 08/10/16 17:35 Dose: Not Given Donepezil HCl (Aricept) 10 mg PO HS [facility] Last Admin: 08/09/16 22:39 Dose: 10 mg Enoxaparin Sodium (Lovenox) 60 mg SC Q12 [facility] PRN Reason: Protocol Last Admin: 08/10/16 11:58 Dose: 60 mg Ferrous Sulfate (Feosol) 324 mg PO TID [facility] Last Admin: 08/10/16 13:21 Dose: Not Given Hydralazine HCl (Apresoline) 10 mg IVP Q6 PRN PRN Reason: Other Last Admin: 08/10/16 00:15 Dose: 10 mg Metronidazole (Flagyl) 500 mg in 100 mls @ 100 mls/hr IVPB Q8 [facility] PRN Reason: Protocol Last Admin: 08/10/16 05:15 Dose: 100 mls/hr Fluconazole (Diflucan Iv 200 Mg/100 Ml Ns) 100 mls @ 100 mls/hr IVPB DAILY [facility] PRN Reason: Protocol Last Admin: 08/10/16 17:41 Dose: 100 mls/hr Ampicillin Sodium/Sulbactam Sodium (Unasyn 1 Gm-0.5 Gm) 1 gm in 100 mls @ 100 mls/hr IVPB Q6 [facility] PRN Reason: Protocol Last Admin: 08/10/16 17:03 Dose: 100 mls/hr Dextrose/Sodium Chloride (Dextrose 5%/0.9% Ns 1000 Ml) 1,000 mls @ 75 mls/hr IV .[id number] [facility] Stop: 08/11/16 12:46 Diltiazem HCl 125 mg/ Sodium (Chloride) 125 mls @ 5 mls/hr IV .Q24H [facility]; 5 MG/ HR PRN Reason: Protocol Last Admin: 08/10/16 13:21 Dose: Not Given Vancomycin HCl (Vancomycin 1gm) 1 g in 250 mls @ 167 mls/hr IVPB Q12 [facility] PRN Reason: Protocol Metoprolol Tartrate (Lopressor) 50 mg PO BID [facility] Last Admin: 08/09/16 18:22 Dose: Not Given Morphine Sulfate (Morphine) 0.5 mg IVP Q4H PRN PRN Reason: Pain, moderate (4-7) Ondansetron HCl (Zofran Inj) 4 mg IVP Q6 PRN PRN Reason: Nausea/Vomiting Pantoprazole Sodium (Protonix Ec Tab) 20 mg PO ACB [facility] Last Admin: 08/10/16 08:42 Dose: 20 mg - Labs Labs: 08/10/16 09:30 08/10/16 09:30 PT 15.2 Seconds (9.9-11.8) H 08/07/16 11:30 INR 1.41 (0.93-1.08) H 08/07/16 11:30 APTT 32.7 Seconds (23.7-30.8) H 08/07/16 11:30 - Constitutional Appears: Non-toxic, No Acute Distress, Chronically Ill - Head Exam Head Exam: ATRAUMATIC, NORMOCEPHALIC - Eye Exam Eye Exam: EOMI, PERRL Pupil Exam: NORMAL ACCOMODATION, PERRL - ENT Exam ENT Exam: Mucous Membranes Moist, Normal External Ear Exam, TM's Normal Bilaterally - Neck Exam Neck Exam: Full ROM, Normal Inspection - Respiratory Exam Respiratory Exam: Clear to Ausculation Bilateral, NORMAL BREATHING PATTERN. absent: Rales, Rhonchi, Wheezes - Cardiovascular Exam Cardiovascular Exam: Irregular Rhythm, +S1, +S2 - GI/Abdominal Exam GI & Abdominal Exam: Soft, Normal Bowel Sounds. absent: Distended, Tenderness Additional comments: colostomy in place. s/p sigmoidectomy. - Extremities Exam Extremities Exam: Full ROM, Normal Inspection - Neurological Exam Neurological Exam: Alert, Awake, CN II-XII Intact, Oriented x3 - Psychiatric Exam Psychiatric exam: Normal Affect, Normal Mood - Skin Skin Exam: Intact, Normal Color Assessment and Plan - Assessment and Plan (Free Text) Assessment: 86 yo female with intra-abdominal abscess presenting with drainage of pus. Taken by IR for drain placement. Spoke with Dr. Zaldivar in detail regarding case. He fears formation of fistula at this time. On Rocephin and Metronidazole. Last hospitalization showed VRE and E. coli growth. Supportive care with low tolerance for switching antibiotics to one such as meropenem. Current culture is showing E. coli that is sensitive to Rocephin and Ancef. Continuing on Ancef. On Diflucan to cover yeast in the urine. New cultures taken. Supportive care. Sigmoid colectomy during exploratory laparotomy. Continue Ancef. Colostomy in place. On medical floor. Events of the night noted... briefly unresponsive overnight. Vancomycin IV added today. Thank you for allowing me to participate in the care of the patient, we will follow with you.
[2016-08-10] MEDS: Vancomycin 1gm in NS 250ml 1 G/250 ML BAG IVPB SCH ×2 (18:46→23:14)
[2016-08-11] MEDS: metroNIDAZOLE IV 500 mg/100 ml 500 MG/100 ML BAG IVPB SCH ×4 (02:00→21:29)
[2016-08-11 02:02] LABS: TROPONIN I 0.28 ng/mL
[2016-08-11 06:03] LABS: ADD MANUAL DIFF? NO
[2016-08-11 06:23] LABS: ALB/GLOB RATIO 0.7 (1.1-1.8); ALKALINE PHOSPHATASE 160 U/L (38-133); ALT/SGPT 28 U/L (7-56); AST/SGOT 23 U/L (15-39); BILIRUBIN,TOTAL 0.5 mg/dL (0.2-1.3); BLOOD UREA NITROGEN 9 mg/dL (7-21); CALCIUM 7.2 mg/dL (8.4-10.5); CARBON DIOXIDE 22 mmol/L (21-33); CHLORIDE 114 mmol/L (98-107); GFR AFRICAN-AMERICAN > 60; GLUCOSE,RANDOM 92 mg/dL (70-110); MAGNESIUM 1.5 mg/dL (1.7-2.2); PHOSPHOROUS 2.7 mg/dL (2.5-4.5); SODIUM 138 mmol/L (132-148); TOTAL PROTEIN 4.3 g/dL (5.8-8.3)
[2016-08-11 06:30] LABS: EOS % 0.1 % (1.5-5.0); GRAN # 10.51 (1.4-6.5); GRAN % 82.8 % (50.0-68.0); HEMATOCRIT 27.5 % (36.0-48.0); LYMPH # 1.3 (1.2-3.4); LYMPH % 10.2 % (22.0-35.0); MEAN CELL VOLUME 91.1 fL (80.0-105.0); MEAN CORPUSCULAR HEMOGLOBIN 29.8 pg (25.0-35.0); MEAN CORPUSCULAR HGB CONC 32.7 g/dl (31.0-37.0); MEAN PLATELET VOLUME 9.3 fl (7.0-11.0); MONO # 0.9 (0.1-0.6); MONO % 6.9 % (1.0-6.0); PLATELET COUNT 308 10^3/uL (120.0-450.0); RED CELL DISTRIBUTION WIDTH 19.6 % (11.5-14.5); WHITE BLOOD COUNT 12.7 10^3/ul (4.5-11.0)
[2016-08-11] MEDS: Pantoprazole 20 mg EC Tab PO SCH (08:09)
--- NOTE | 2016-08-11 08:47 | CP.PCM.PN ---
Subjective - Date & Time of Evaluation Date of Evaluation: 08/11/16 Time of Evaluation: 08:43 - Subjective Subjective: Surgery for Dr. Keita Pt s&e. Pt has Rapid response for A-fib RVR yesterday. CT and cxr ordered. Shows infiltration. Today pt is doing better. Resting. TOlerating PO. Minimal output. Objective - Vital Signs/Intake and Output Vital Signs (last 24 hours): Temp Pulse Resp BP Pulse Ox 98.7 F 87 20 149/67 97 08/11/16 00:01 08/11/16 00:01 08/11/16 00:01 08/11/16 00:01 08/10/16 06:00 Intake and Output: 08/11/16 08/11/16 06:59 18:59 Output Total 300 400 Balance -300 -400 - Medications Medications: Current Medications Acetaminophen (Tylenol 650mg/20.3ml Solution Ud) 320 mg PO Q4 PRN PRN Reason: Fever >100.4 F Last Admin: 08/08/16 10:30 Dose: 320 mg Amiodarone HCl (Cordarone) 400 mg PO BID [facility] Last Admin: 08/10/16 17:44 Dose: Not Given Aspirin (Aspirin Chewable) 81 mg PO DAILY [facility] Last Admin: 08/10/16 09:29 Dose: 81 mg Atorvastatin Calcium (Lipitor) 40 mg PO DIN [facility] Last Admin: 08/10/16 17:46 Dose: Not Given Benzocaine/Menthol (Cepacol Sore Throat) 1 [place] MT Q2H PRN PRN Reason: Sore Throat Last Admin: 08/08/16 10:10 Dose: 1 burton Calcium Carbonate (Oscal) 500 mg PO DAILY [facility] Last Admin: 08/10/16 09:49 Dose: Not Given Cholecalciferol (Vitamin D) 2,000 iu PO DAILY [facility] Last Admin: 08/10/16 09:49 Dose: Not Given Clonidine HCl (Catapres Tts1 0.1 Mg/24 Hr) 1 patch TD Q7D@1000 [facility] Last Admin: 08/07/16 16:16 Dose: 1 patch Donepezil HCl (Aricept) 10 mg PO HS [facility] Last Admin: 08/10/16 22:30 Dose: Not Given Enoxaparin Sodium (Lovenox) 60 mg SC Q12 [facility] PRN Reason: Protocol Last Admin: 08/10/16 22:30 Dose: 60 mg Ferrous Sulfate (Feosol) 324 mg PO TID [facility] Last Admin: 08/10/16 17:47 Dose: Not Given Hydralazine HCl (Apresoline) 10 mg IVP Q6 PRN PRN Reason: Other Last Admin: 08/10/16 00:15 Dose: 10 mg Metronidazole (Flagyl) 500 mg in 100 mls @ 100 mls/hr IVPB Q8 [facility] PRN Reason: Protocol Last Admin: 08/11/16 06:38 Dose: 100 mls/hr Fluconazole (Diflucan Iv 200 Mg/100 Ml Ns) 100 mls @ 100 mls/hr IVPB DAILY [facility] PRN Reason: Protocol Last Admin: 08/10/16 17:41 Dose: 100 mls/hr Ampicillin Sodium/Sulbactam Sodium (Unasyn 1 Gm-0.5 Gm) 1 gm in 100 mls @ 100 mls/hr IVPB Q6 [facility] PRN Reason: Protocol Last Admin: 08/11/16 05:25 Dose: 100 mls/hr Dextrose/Sodium Chloride (Dextrose 5%/0.9% Ns 1000 Ml) 1,000 mls @ 75 mls/hr IV .[id number] [facility] Stop: 08/11/16 12:46 Last Admin: 08/11/16 00:45 Dose: 75 mls/hr Diltiazem HCl 125 mg/ Sodium (Chloride) 125 mls @ 5 mls/hr IV .Q24H [facility]; 5 MG/ HR PRN Reason: Protocol Last Admin: 08/10/16 13:21 Dose: Not Given Vancomycin HCl (Vancomycin 1gm) 1 g in 250 mls @ 167 mls/hr IVPB Q12 [facility] PRN Reason: Protocol Last Admin: 08/10/16 23:14 Dose: Not Given Metoprolol Tartrate (Lopressor) 50 mg PO BID [facility] Last Admin: 08/10/16 17:46 Dose: Not Given Morphine Sulfate (Morphine) 0.5 mg IVP Q4H PRN PRN Reason: Pain, moderate (4-7) Ondansetron HCl (Zofran Inj) 4 mg IVP Q6 PRN PRN Reason: Nausea/Vomiting Pantoprazole Sodium (Protonix Ec Tab) 20 mg PO ACB [facility] Last Admin: 08/11/16 08:09 Dose: 20 mg - Labs Labs: 08/11/16 05:50 08/11/16 05:50 PT 15.2 Seconds (9.9-11.8) H 08/07/16 11:30 INR 1.41 (0.93-1.08) H 08/07/16 11:30 APTT 32.7 Seconds (23.7-30.8) H 08/07/16 11:30 - Constitutional Appears: No Acute Distress - Head Exam Head Exam: ATRAUMATIC, NORMAL INSPECTION, NORMOCEPHALIC - Eye Exam Eye Exam: EOMI, Normal appearance, PERRL Pupil Exam: NORMAL ACCOMODATION, PERRL - ENT Exam ENT Exam: Mucous Membranes Moist, Normal Exam - Respiratory Exam Respiratory Exam: NORMAL BREATHING PATTERN - Cardiovascular Exam Cardiovascular Exam: REGULAR RHYTHM, +S1, +S2. absent: Murmur - GI/Abdominal Exam GI & Abdominal Exam: Soft. absent: Distended, Firm, Guarding, Rigid, Tenderness Additional comments: Ostomy in place: minimal output. MO in place: SS fluids - Exam Exam: NORMAL INSPECTION - Extremities Exam Extremities Exam: Normal Capillary Refill. absent: Full ROM, Joint Swelling, Normal Inspection Additional comments: b/l UE edema. L PICC in place - Back Exam Back Exam: NORMAL INSPECTION - Neurological Exam Neurological Exam: Alert, Awake, CN II-XII Intact, Normal Gait, Oriented x3 - Psychiatric Exam Psychiatric exam: Normal Affect, Normal Mood - Skin Skin Exam: Dry, Intact, Normal Color, Warm Assessment and Plan - Assessment and Plan (Free Text) Assessment: 86F s/p sigmoid colon resection and colostomy ; POD#5 CXR: b/l low lobe infiltration Plan: - soft diet - Aspiration precaution - monitor for bowel function - Encourage out of bed to chair with PT - Monitor drain outputs - Medical management. - Will d/w Dr. Keita
--- NOTE | 2016-08-11 08:52 | CP.PCM.PN ---
<Franck Carmona - Last Filed: 08/11/16 08:47> Subjective - Date & Time of Evaluation Date of Evaluation: 08/11/16 Time of Evaluation: 08:47 - Subjective Subjective: GI for Dr. Archuleta Pt s&e. Pt has RR for Afib RVR. CXR and CT showed lower lobes infiltrate. Pt is doing better now. AAOx3. Communicate w/o difficulty. Has ostomy with minimal output. Objective - Vital Signs/Intake and Output Vital Signs (last 24 hours): Temp Pulse Resp BP Pulse Ox 98.7 F 87 20 149/67 97 08/11/16 00:01 08/11/16 00:01 08/11/16 00:01 08/11/16 00:01 08/10/16 06:00 Intake and Output: 08/11/16 08/11/16 06:59 18:59 Output Total 300 400 Balance -300 -400 - Medications Medications: Current Medications Acetaminophen (Tylenol 650mg/20.3ml Solution Ud) 320 mg PO Q4 PRN PRN Reason: Fever >100.4 F Last Admin: 08/08/16 10:30 Dose: 320 mg Amiodarone HCl (Cordarone) 400 mg PO BID [facility] Last Admin: 08/10/16 17:44 Dose: Not Given Aspirin (Aspirin Chewable) 81 mg PO DAILY [facility] Last Admin: 08/10/16 09:29 Dose: 81 mg Atorvastatin Calcium (Lipitor) 40 mg PO DIN [facility] Last Admin: 08/10/16 17:46 Dose: Not Given Benzocaine/Menthol (Cepacol Sore Throat) 1 [place] MT Q2H PRN PRN Reason: Sore Throat Last Admin: 08/08/16 10:10 Dose: 1 burton Calcium Carbonate (Oscal) 500 mg PO DAILY [facility] Last Admin: 08/10/16 09:49 Dose: Not Given Cholecalciferol (Vitamin D) 2,000 iu PO DAILY [facility] Last Admin: 08/10/16 09:49 Dose: Not Given Clonidine HCl (Catapres Tts1 0.1 Mg/24 Hr) 1 patch TD Q7D@1000 [facility] Last Admin: 08/07/16 16:16 Dose: 1 patch Donepezil HCl (Aricept) 10 mg PO HS [facility] Last Admin: 08/10/16 22:30 Dose: Not Given Enoxaparin Sodium (Lovenox) 60 mg SC Q12 [facility] PRN Reason: Protocol Last Admin: 08/10/16 22:30 Dose: 60 mg Ferrous Sulfate (Feosol) 324 mg PO TID [facility] Last Admin: 08/10/16 17:47 Dose: Not Given Hydralazine HCl (Apresoline) 10 mg IVP Q6 PRN PRN Reason: Other Last Admin: 08/10/16 00:15 Dose: 10 mg Metronidazole (Flagyl) 500 mg in 100 mls @ 100 mls/hr IVPB Q8 [facility] PRN Reason: Protocol Last Admin: 08/11/16 06:38 Dose: 100 mls/hr Fluconazole (Diflucan Iv 200 Mg/100 Ml Ns) 100 mls @ 100 mls/hr IVPB DAILY [facility] PRN Reason: Protocol Last Admin: 08/10/16 17:41 Dose: 100 mls/hr Ampicillin Sodium/Sulbactam Sodium (Unasyn 1 Gm-0.5 Gm) 1 gm in 100 mls @ 100 mls/hr IVPB Q6 [facility] PRN Reason: Protocol Last Admin: 08/11/16 05:25 Dose: 100 mls/hr Dextrose/Sodium Chloride (Dextrose 5%/0.9% Ns 1000 Ml) 1,000 mls @ 75 mls/hr IV .[id number] [facility] Stop: 08/11/16 12:46 Last Admin: 08/11/16 00:45 Dose: 75 mls/hr Diltiazem HCl 125 mg/ Sodium (Chloride) 125 mls @ 5 mls/hr IV .Q24H [facility]; 5 MG/ HR PRN Reason: Protocol Last Admin: 08/10/16 13:21 Dose: Not Given Vancomycin HCl (Vancomycin 1gm) 1 g in 250 mls @ 167 mls/hr IVPB Q12 [facility] PRN Reason: Protocol Last Admin: 08/10/16 23:14 Dose: Not Given Metoprolol Tartrate (Lopressor) 50 mg PO BID [facility] Last Admin: 08/10/16 17:46 Dose: Not Given Morphine Sulfate (Morphine) 0.5 mg IVP Q4H PRN PRN Reason: Pain, moderate (4-7) Ondansetron HCl (Zofran Inj) 4 mg IVP Q6 PRN PRN Reason: Nausea/Vomiting Pantoprazole Sodium (Protonix Ec Tab) 20 mg PO ACB [facility] Last Admin: 08/11/16 08:09 Dose: 20 mg - Labs Labs: 08/11/16 05:50 08/11/16 05:50 PT 15.2 Seconds (9.9-11.8) H 08/07/16 11:30 INR 1.41 (0.93-1.08) H 08/07/16 11:30 APTT 32.7 Seconds (23.7-30.8) H 08/07/16 11:30 - Constitutional Appears: No Acute Distress - Head Exam Head Exam: NORMAL INSPECTION - Eye Exam Eye Exam: EOMI, Normal appearance, PERRL Pupil Exam: NORMAL ACCOMODATION, PERRL - ENT Exam ENT Exam: Mucous Membranes Moist, Normal Exam - Neck Exam Neck Exam: Full ROM, Normal Inspection. absent: Lymphadenopathy - Respiratory Exam Respiratory Exam: Clear to Ausculation Bilateral, NORMAL BREATHING PATTERN - Cardiovascular Exam Cardiovascular Exam: REGULAR RHYTHM, +S1, +S2. absent: Murmur - GI/Abdominal Exam GI & Abdominal Exam: Soft, Normal Bowel Sounds. absent: Distended, Firm, Tenderness Additional comments: Ostomy minimal output. MO in place ss fluids - Exam Exam: NORMAL INSPECTION - Extremities Exam Extremities Exam: Pedal Edema. absent: Full ROM, Normal Inspection Additional comments: b/l UE edema. L PICC - Back Exam Back Exam: NORMAL INSPECTION - Neurological Exam Neurological Exam: Alert, Awake, CN II-XII Intact, Oriented x3 - Psychiatric Exam Psychiatric exam: Normal Affect, Normal Mood - Skin Skin Exam: Dry, Intact, Normal Color, Warm Assessment and Plan - Assessment and Plan (Free Text) Assessment: 86F Intra-abd abscess s/p sigmoid colon resection and colostomy ; POD#5 CXR: b/l low lobe infiltration Plan: - soft diet - Aspiration precaution - monitor for bowel function - Encourage out of bed to chair with PT - Monitor drain outputs - Medical management. -ABX per ID - Will DW Dr. Archuleta <Long Archuleta V - Last Filed: 09/27/16 13:53> Objective - Vital Signs/Intake and Output Vital Signs (last 24 hours): Temp Pulse Resp BP Pulse Ox 95 F L 42 L 36 H 95/57 L 96 08/17/16 12:00 08/17/16 20:00 08/17/16 20:00 08/17/16 19:00 08/17/16 20:30 - Labs Labs: 08/17/16 05:00 08/17/16 05:00 PT 12.3 Seconds (9.9-11.8) H 08/15/16 14:50 INR 1.14 (0.93-1.08) H 08/15/16 14:50 APTT 34.8 Seconds (23.7-30.8) H 08/15/16 14:50 Assessment and Plan - Assessment and Plan (Free Text) Assessment: Addendum to GI prgress note of Dr. Carmona. Patient was seen, examined and chart reviewed. S/P intra-abdominal abscess, s/p sigmoid colon resection and colostomy , on soft diet and tolerating, continue antibiotics, monitor H/H. Diet as tolerated.
[2016-08-11] MEDS: Vancomycin 1gm in NS 250ml 1 G/250 ML BAG IVPB SCH ×2 (09:36→21:31)
[2016-08-11] MEDS: Enoxaparin 60 mg Syringe SC SCH ×2 (09:39→21:31)
[2016-08-11] MEDS: Fluconazole IV 200mg/100 ml NS 100 ML IVPB SCH (09:39)
[2016-08-11] MEDS ORDERED: Digoxin 500 mcg/2ml (0.5 mg/2ml) Inj IVP ONE (11:39)
--- NOTE | 2016-08-11 13:18 | PN ---
DATE: 08/11/2016 The patient is seen and examined and very lethargic this morning with no shortness of breath, no ches t pain at this point. However, the patient states that she is having some mild abdominal pain. PHYSICAL EXAMINATION: VITAL SIGNS: Blood pressure currently is 144/69, pulse rate of 114. Temperature is 98.7, O2 saturat ion is 98 on 2 liters nasal cannula. HEENT: Normocephalic, atraumatic. Pale conjunctivae. Nonicteric sclerae. CARDIOVASCULAR: Tachycardic, regular rate and rhythm. S1, S2 appreciated with a II/ systolic murm ur. ABDOMEN: Nondistended, positive drainage, as well as surgical scar, which is healing. EXTREMITIES: Peripheral pulses +2 with no pitting edema. LABORATORY DATA: WBCs have down-trended to 12.9, hemoglobin of 9.0, hematocrit of 27.5, platelets of 308. Chemistry within normal limits. Troponins have been stabilized at 0.3-0.28. Blood cultures a re negative at this point. ASSESSMENT: 1. Tachycardia. 2. Non-ST elevation myocardial infarction. 3. Atrial fibrillation. 4. Status post sigmoid colostomy. 5. Bilateral pneumonia. PLAN: At this time, we will continue IV antibiotics the patient is receiving, as well as IV fluids, as well as her Cardizem at this point. We will watch this patient very closely, as well as surgical evaluation for wound care. Aubrey Zuniga MD cc: [id number] TT: 08/11/2016 13:17:33 Confirmation # [id number] Dictation # [id number]
--- NOTE | 2016-08-11 13:47 | PN ---
DATE: 08/11/2016 REASON FOR DICTATION: Covering Dr. Cruz. REASON FOR CONSULTATION: Atrial fibrillation with rapid rate postop. BRIEF CLINICAL HISTORY: This is an 86-year-old female with a past medical history significant for ex ploratory laparotomy. Postop, patient went into atrial fibrillation. Denies any chest pain, shortne ss of breath, any palpitation. History of CAD status post PTCA with a bare metal stent in April. PHYSICAL EXAMINATION: VITAL SIGNS: Temperature afebrile, heart rate 114, blood pressure 114/69. HEENT: PERRLA. Extraocular muscles intact. NECK: Supple. No carotid bruits. No thyromegaly. CHEST: Clear to auscultation. HEART: S1, S2 regular. ABDOMEN: Soft. EXTREMITIES: Clubbing, cyanosis negative. BLOOD WORKUP: WBC 12. , hemoglobin 9, hematocrit 27.5, platelet count 308. Chemistry shows sodi um , potassium 4, chloride 114, carbon dioxide 22, anion gap 6, BUN 9, creatinine 0.4. Troponin 0.3, 0.3, now 0.28, trending down. Albumin 1.7. IMPRESSION: Severe protein-calorie malnutrition which was present on admission, anemia, status post exploratory laparotomy, leukocytosis, Brad procedure for exploratory laparotomy for colovesical f istula, bilateral catheter, positive troponin, possibly secondary to myocardial infarction, his tory of new onset atrial fibrillation, history of bare metal stent in the past, status post periphera lly inserted central catheter line, anemia, leukocytosis. EKG yesterday showed atrial fibrillation w ith rapid ventricular rate, anterior wall myocardial infarction, ST-T changes, lateral EKG changes. RECOMMENDATION: The patient got amiodarone, on Cardizem 5 mg. Will start low-dose add beta-lynn 400 mg b.i.d. Amiodarone was started. Will get low-dose beta-lynn as well as digoxin, 1 dose was given. We will follow with you. Continue Lovenox. Repeat the EKG. So far, trend down. No complaint of chest pain. We will follow with you. We will transfer care on Friday to Dr. Cruz . Thank you, Dr. Diaz, for providing us the opportunity in taking care of the patient. Lindsay Li MD cc: [id number] TT: 08/11/2016 13:47:02 Confirmation # [id number] Dictation # [id number]
--- NOTE | 2016-08-11 16:40 | CP.PCM.PN ---
Subjective - Date & Time of Evaluation Date of Evaluation: 08/11/16 Time of Evaluation: 15:00 - Subjective Subjective: Infectious Disease Follow Up: August 11, 2016 85 [place] [facility] [place] after discovery of purulent drainage from left lower abdominal drain site. She has a history of hypertension, GI bleed, CAD with stents, anemia, and osteoporosis. Many of her hospitalizations last year were for GI bleed. 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 She is currently on ceftriaxone and Flagyl. This will cover most recurrences of E. coli. Taken to IR by Dr. Zaldivar on Friday. 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 IR drain is still showing fecal material. E. coli in cultures of wound site. Yeast in urine cultures. Tre-colectomy yesteday with monitoring post surgery in MICU. Patient transferred to medical floor. Low urine output. Noted events of previous night where patient was briefly unresponsive and finally awoke after several attempts with deep chest rubs. Patient was lethargic this morning according to notes. Today the patient had bouts of tachycardia up to 200 bpm. Reported to me by resident that the patient had fevers up to 101.2 F yesterday. I had suggested Vancomycin use based on that information. I do not see any recording of fevers in the chart at this point. Reports are of tachycardia. The patient did have a CT scan that showed bilateral pleural effusions which was reported to me by the nuclear medicine medical director. Vancomycin added for potential hospital acquired pneumonia. The patient is more stable. She is on a Cardizem drip now. Objective - Vital Signs/Intake and Output Vital Signs (last 24 hours): Temp Pulse Resp BP Pulse Ox 98.7 F 74 18 115/55 L 97 08/11/16 00:01 08/11/16 12:33 08/11/16 12:33 08/11/16 12:33 08/10/16 06:00 Intake and Output: 08/11/16 08/11/16 06:59 18:59 Output Total 300 400 Balance -300 -400 - Medications Medications: Current Medications Acetaminophen (Tylenol 650mg/20.3ml Solution Ud) 320 mg PO Q4 PRN PRN Reason: Fever >100.4 F Last Admin: 08/08/16 10:30 Dose: 320 mg Amiodarone HCl (Cordarone) 400 mg PO BID [facility] Last Admin: 08/11/16 09:38 Dose: 400 mg Aspirin (Aspirin Chewable) 81 mg PO DAILY [facility] Last Admin: 08/11/16 09:38 Dose: 81 mg Atorvastatin Calcium (Lipitor) 40 mg PO DIN [facility] Last Admin: 08/10/16 17:46 Dose: Not Given Benzocaine/Menthol (Cepacol Sore Throat) 1 burton MT Q2H PRN PRN Reason: Sore Throat Last Admin: 08/08/16 10:10 Dose: 1 burton Calcium Carbonate (Oscal) 500 mg PO DAILY [facility] Last Admin: 08/11/16 09:38 Dose: 500 mg Cholecalciferol (Vitamin D) 2,000 iu PO DAILY [facility] Last Admin: 08/11/16 09:39 Dose: 2,000 iu Clonidine HCl (Catapres Tts1 0.1 Mg/24 Hr) 1 patch TD Q7D@1000 [facility] Last Admin: 08/07/16 16:16 Dose: 1 patch Donepezil HCl (Aricept) 10 mg PO HS [facility] Last Admin: 08/10/16 22:30 Dose: Not Given Enoxaparin Sodium (Lovenox) 60 mg SC Q12 [facility] PRN Reason: Protocol Last Admin: 08/11/16 09:39 Dose: 60 mg Ferrous Sulfate (Feosol) 324 mg PO TID [facility] Last Admin: 08/11/16 14:41 Dose: 324 mg Hydralazine HCl (Apresoline) 10 mg IVP Q6 PRN PRN Reason: Other Last Admin: 08/10/16 00:15 Dose: 10 mg Metronidazole (Flagyl) 500 mg in 100 mls @ 100 mls/hr IVPB Q8 [facility] PRN Reason: Protocol Last Admin: 08/11/16 14:41 Dose: 100 mls/hr Fluconazole (Diflucan Iv 200 Mg/100 Ml Ns) 100 mls @ 100 mls/hr IVPB DAILY [facility] PRN Reason: Protocol Last Admin: 08/11/16 09:39 Dose: 100 mls/hr Ampicillin Sodium/Sulbactam Sodium (Unasyn 1 Gm-0.5 Gm) 1 gm in 100 mls @ 100 mls/hr IVPB Q6 [facility] PRN Reason: Protocol Last Admin: 08/11/16 12:38 Dose: 100 mls/hr Diltiazem HCl 125 mg/ Sodium (Chloride) 125 mls @ 5 mls/hr IV .Q24H [facility]ENN[facility]; 5 MG/ HR PRN Reason: Protocol Last Admin: 08/10/16 13:21 Dose: Not Given Vancomycin HCl (Vancomycin 1gm) 1 g in 250 mls @ 167 mls/hr IVPB Q12 [facility] PRN Reason: Protocol Last Admin: 08/11/16 09:36 Dose: 167 mls/hr Metoprolol Tartrate (Lopressor) 50 mg PO BID [facility] Last Admin: 08/11/16 09:38 Dose: 50 mg Morphine Sulfate (Morphine) 0.5 mg IVP Q4H PRN PRN Reason: Pain, moderate (4-7) Ondansetron HCl (Zofran Inj) 4 mg IVP Q6 PRN PRN Reason: Nausea/Vomiting Pantoprazole Sodium (Protonix Ec Tab) 20 mg PO ACB [facility] Last Admin: 08/11/16 08:09 Dose: 20 mg - Labs Labs: 08/11/16 05:50 08/11/16 05:50 PT 15.2 Seconds (9.9-11.8) H 08/07/16 11:30 INR 1.41 (0.93-1.08) H 08/07/16 11:30 APTT 32.7 Seconds (23.7-30.8) H 08/07/16 11:30 - Constitutional Appears: Non-toxic, No Acute Distress, Chronically Ill - Head Exam Head Exam: ATRAUMATIC, NORMOCEPHALIC - Eye Exam Eye Exam: EOMI, PERRL Pupil Exam: NORMAL ACCOMODATION, PERRL - ENT Exam ENT Exam: Mucous Membranes Moist, Normal External Ear Exam, TM's Normal Bilaterally - Neck Exam Neck Exam: Full ROM, Normal Inspection - Respiratory Exam Respiratory Exam: Clear to Ausculation Bilateral, NORMAL BREATHING PATTERN. absent: Rales, Rhonchi, Wheezes - Cardiovascular Exam Cardiovascular Exam: Irregular Rhythm, +S1, +S2 - GI/Abdominal Exam GI & Abdominal Exam: Soft, Normal Bowel Sounds. absent: Distended, Tenderness Additional comments: colostomy in place. s/p sigmoidectomy. - Extremities Exam Extremities Exam: Full ROM, Normal Inspection - Neurological Exam Neurological Exam: Alert, Awake, CN II-XII Intact, Oriented x3 - Psychiatric Exam Psychiatric exam: Normal Affect, Normal Mood - Skin Skin Exam: Intact, Normal Color Assessment and Plan - Assessment and Plan (Free Text) Assessment: 86 yo female with intra-abdominal abscess presenting with drainage of pus. Taken by IR for drain placement. Spoke with Dr. Zaldivar in detail regarding case. He fears formation of fistula at this time. On Rocephin and Metronidazole. Last hospitalization showed VRE and E. coli growth. Supportive care with low tolerance for switching antibiotics to one such as meropenem. Current culture is showing E. coli that is sensitive to Rocephin and Ancef. Continuing on Ancef. On Diflucan to cover yeast in the urine. New cultures taken. Supportive care. Sigmoid colectomy during exploratory laparotomy. Continue Ancef. Colostomy in place. On medical floor. Vancomycin IV added yesterday. Repeat culture on 08/10/2016 negative so far. Thank you for allowing me to participate in the care of the patient, we will follow with you.
[2016-08-12] MEDS: metroNIDAZOLE IV 500 mg/100 ml 500 MG/100 ML BAG IVPB SCH ×3 (05:29→21:53)
--- NOTE | 2016-08-12 06:50 | CP.PCM.PN ---
<Belia Wilkersonla - Last Filed: 08/12/16 16:15> Subjective - Date & Time of Evaluation Date of Evaluation: 08/12/16 Time of Evaluation: 07:30 - Subjective Subjective: Medicine progress note for Dr Diaz and Dr Zuniga service. Patient doing much better, more alert and oriented. Patient is able to speak in full sentences. Patient reports she is feeling stronger, not as weak as Friday. Patient denies cp or sob. Patient states the abdominal soreness has improved, a little pain when she moves. Denies fever, chills, nausea or vomiting. On tele, patient's rhythm is irregular, however HR in the 60's, overnight patient's HR dropped to 48s-60s at times, no longer RVR. Objective - Vital Signs/Intake and Output Vital Signs (last 24 hours): Temp Pulse Resp BP Pulse Ox 98.7 F 70 20 115/52 L 99 08/12/16 06:00 08/12/16 06:00 08/12/16 06:00 08/12/16 06:00 08/11/16 23:44 Intake and Output: 08/11/16 08/12/16 18:59 06:59 Intake Total 660 360 Output Total 900 900 Balance -240 -540 - Medications Medications: Current Medications Acetaminophen (Tylenol 650mg/20.3ml Solution Ud) 320 mg PO Q4 PRN PRN Reason: Fever >100.4 F Last Admin: 08/08/16 10:30 Dose: 320 mg Amiodarone HCl (Cordarone) 400 mg PO BID [facility] Last Admin: 08/11/16 18:10 Dose: 400 mg Aspirin (Aspirin Chewable) 81 mg PO DAILY [facility] Last Admin: 08/11/16 09:38 Dose: 81 mg Atorvastatin Calcium (Lipitor) 40 mg PO DIN [facility] Last Admin: 08/11/16 18:12 Dose: 40 mg Benzocaine/Menthol (Cepacol Sore Throat) 1 burton MT Q2H PRN PRN Reason: Sore Throat Last Admin: 08/08/16 10:10 Dose: 1 burton Calcium Carbonate (Oscal) 500 mg PO DAILY [facility] Last Admin: 08/11/16 09:38 Dose: 500 mg Cholecalciferol (Vitamin D) 2,000 iu PO DAILY [facility] Last Admin: 08/11/16 09:39 Dose: 2,000 iu Clonidine HCl (Catapres Tts1 0.1 Mg/24 Hr) 1 patch TD Q7D@1000 [facility] Last Admin: 08/07/16 16:16 Dose: 1 patch Donepezil HCl (Aricept) 10 mg PO HS [facility] Last Admin: 08/11/16 21:32 Dose: 10 mg Enoxaparin Sodium (Lovenox) 60 mg SC Q12 [facility] PRN Reason: Protocol Last Admin: 08/11/16 21:31 Dose: 60 mg Ferrous Sulfate (Feosol) 324 mg PO TID [facility] Last Admin: 08/11/16 18:11 Dose: 324 mg Hydralazine HCl (Apresoline) 10 mg IVP Q6 PRN PRN Reason: Other Last Admin: 08/10/16 00:15 Dose: 10 mg Metronidazole (Flagyl) 500 mg in 100 mls @ 100 mls/hr IVPB Q8 [facility] PRN Reason: Protocol Last Admin: 08/12/16 05:29 Dose: 100 mls/hr Fluconazole (Diflucan Iv 200 Mg/100 Ml Ns) 100 mls @ 100 mls/hr IVPB DAILY [facility] PRN Reason: Protocol Last Admin: 08/11/16 09:39 Dose: 100 mls/hr Ampicillin Sodium/Sulbactam Sodium (Unasyn 1 Gm-0.5 Gm) 1 gm in 100 mls @ 100 mls/hr IVPB Q6 [facility] PRN Reason: Protocol Last Admin: 08/12/16 05:30 Dose: 100 mls/hr Diltiazem HCl 125 mg/ Sodium (Chloride) 125 mls @ 5 mls/hr IV .Q24H [facility]ENNIFER; 5 MG/ HR PRN Reason: Protocol Last Admin: 08/11/16 18:46 Dose: 5 mg/hr, 5 mls/hr Vancomycin HCl (Vancomycin 1gm) 1 g in 250 mls @ 167 mls/hr IVPB Q12 [facility] PRN Reason: Protocol Last Admin: 08/11/16 21:31 Dose: 167 mls/hr Metoprolol Tartrate (Lopressor) 50 mg PO BID [facility] Last Admin: 08/11/16 18:11 Dose: 50 mg Morphine Sulfate (Morphine) 0.5 mg IVP Q4H PRN PRN Reason: Pain, moderate (4-7) Ondansetron HCl (Zofran Inj) 4 mg IVP Q6 PRN PRN Reason: Nausea/Vomiting Pantoprazole Sodium (Protonix Ec Tab) 20 mg PO ACB [facility] Last Admin: 08/11/16 08:09 Dose: 20 mg - Labs Labs: 08/11/16 05:50 08/11/16 05:50 PT 15.2 Seconds (9.9-11.8) H 08/07/16 11:30 INR 1.41 (0.93-1.08) H 08/07/16 11:30 APTT 32.7 Seconds (23.7-30.8) H 08/07/16 11:30 - Constitutional Appears: No Acute Distress, Chronically Ill - Head Exam Head Exam: ATRAUMATIC, NORMAL INSPECTION, NORMOCEPHALIC - Eye Exam Eye Exam: Normal appearance, PERRL. absent: Scleral icterus - ENT Exam ENT Exam: Mucous Membranes Dry - Neck Exam Neck Exam: Normal Inspection Additional comments: Right EJ in place. - Respiratory Exam Respiratory Exam: Decreased Breath Sounds (at the bases), Clear to Ausculation Bilateral, Rhonchi, NORMAL BREATHING PATTERN. absent: Rales, Wheezes, Respiratory Distress, Stridor - Cardiovascular Exam Cardiovascular Exam: Bradycardia, Irregular Rhythm, +S1, +S2, Murmur (systolic) . absent: Diastolic murmur, Gallop, Rubs - GI/Abdominal Exam GI & Abdominal Exam: Soft, Tenderness (at the incision sit.), Normal Bowel Sounds. absent: Distended, Firm, Guarding, Rigid Additional comments: Ostomy with formed stools, mixed with liquid, Right MO drain with yellowish fluid. - Extremities Exam Extremities Exam: Pedal Edema (+2) - Neurological Exam Neurological Exam: Alert, Awake, Oriented x3 Additional comments: Patient is more verbal today. - Psychiatric Exam Psychiatric exam: Normal Affect, Normal Mood - Skin Skin Exam: Dry, Warm Additional comments: Upper and lower extremities edema improved. Assessment and Plan - Assessment and Plan (Free Text) Assessment: Patient is an 86 y/o with PMH of HTN, CAD s/p stents, CHF, HLD, Alzheimer's dementia, h/o cholecystectomy, Diverticulitis admitted with intra-abdominal abscess with cutaneous fistula s/p IR drain placement day # 11 ( removed), s/p sigmoid resection with colostomy mucous fistula POD# 5. Oliguric post op, which has now resolved. Developed RVR afib 2 days post op, rate is now controlled. Plan: 1) New onset RVR Afib - Rate is now controlled. - will d/c cardizem drip, and start po Cardizem at 30 mg qid - will continue po Lopressor 50 mg bid - Continue amiodorone 400 mg bid - CHADS2 score of 3 for h/o chf, htn and age>75. [id number] score of 5 for age, sex, chf, htn. - Continue lovenox 60 q12 2) NSTEMI - Troponin has trended down - on therapeutic Lovenox. - Continue Lipitor, Lopressor, and asa. - cardio rec appreciated 3) HAP- - CTA with b/l consolidation. - will obtain repeat chest x-ray for follow up. - So far no growth on repeat cultures - on unasyn and vanco 1gm q12 as per ID 4) Hypokalemia-improved - potassium 3.6, will give 40 meq po, to maintain it at 4 5) Hypomagnesemia- will give 2 gm, will continue to monitor. 6) Hypophosphatemia- will give 1 packet po bid for 1-2 days. 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 - Post operative wound care as per surgery - Pain control with morphine prn and Tylenol prn - IS, OOBTC - puree diet with aspiration precaution. - Intra-abdominal abscess grew ecoli. - on unasyn and flagyl - ID following. 8)KRIS- likely 2nd to ATN- - Oliguria resolved, creat at pt's baseline - NephroDr Velasco rec appreciated, will start d5wNS@50 ml/hr. - strict I&Os. - Avoid NSAIDs. 9) Malnutrition with anasarca - Albumin still very low - Extremities edema slightly improved - will continue puree diet, and supplementation with ensure. 10) Normocytic anemia - s/p 2 units prbc this admission - hgb fluctuates, but somewhat stable in the 8s - will monitor for now. 11) h/o HTN-continue clonidine patch, Lopressor and Hydralazine prn for htn. 12) Transaminitis-resolved 13) Vitamin D deficiency - po vitamin d 2000 14) Dementia- continue aricept 15) DVT prophylaxis: Lovenox and protonix. 16) Dispo- BRITTANY when medically optimized. Patient, seen, examined, and case discussed with Dr Zuniga. <Aubrey Zuniga - Last Filed: 08/30/16 18:50> Objective - Vital Signs/Intake and Output Vital Signs (last 24 hours): Temp Pulse Resp BP Pulse Ox 95 F L 42 L 36 H 95/57 L 96 08/17/16 12:00 08/17/16 20:00 08/17/16 20:00 08/17/16 19:00 08/17/16 20:30 - Labs Labs: 08/17/16 05:00 08/17/16 05:00 PT 12.3 Seconds (9.9-11.8) H 08/15/16 14:50 INR 1.14 (0.93-1.08) H 08/15/16 14:50 APTT 34.8 Seconds (23.7-30.8) H 08/15/16 14:50 Attending/Attestation - Attestation I have personally seen and examined this patient.: Yes I have fully participated in the care of the patient.: Yes I have reviewed all pertinent clinical information, including history, physical exam and plan: Yes Notes (Text): 08/30/16 18:50 Medical record note made by the resident after discussion with my direction and input after the patient was personally seen and examined by me. I have reviewed the chart and agree that the record accurately reflects by personal performance of the history, physical exam, data review, and medical decision-making, in the course for the patient. I have also personally directed the plan of care.
[2016-08-12 07:20] LABS: ADD MANUAL DIFF? NO
[2016-08-12 07:26] LABS: BASO # 0.01 K/mm3 (0.0-2.0); BASO % 0.1 % (0.0-3.0); EOS % 0.3 % (1.5-5.0); GRAN # 10.86 (1.4-6.5); GRAN % 82.6 % (50.0-68.0); LYMPH # 1.3 (1.2-3.4); LYMPH % 9.7 % (22.0-35.0); MEAN CELL VOLUME 92.5 fL (80.0-105.0); MEAN CORPUSCULAR HEMOGLOBIN 30.1 pg (25.0-35.0); MEAN CORPUSCULAR HGB CONC 32.6 g/dl (31.0-37.0); MEAN PLATELET VOLUME 9.3 fl (7.0-11.0); MONO % 7.3 % (1.0-6.0); PLATELET COUNT 337 10^3/uL (120.0-450.0); RED CELL DISTRIBUTION WIDTH 19.8 % (11.5-14.5); WHITE BLOOD COUNT 13.2 10^3/ul (4.5-11.0)
[2016-08-12 07:45] LABS: TROPONIN I 0.18 ng/mL
[2016-08-12 07:49] LABS: ALB/GLOB RATIO 0.7 (1.1-1.8); ALKALINE PHOSPHATASE 152 U/L (38-133); ALT/SGPT 25 U/L (7-56); AST/SGOT 17 U/L (15-39); BILIRUBIN,TOTAL 0.3 mg/dL (0.2-1.3); BLOOD UREA NITROGEN 11 mg/dL (7-21); CALCIUM 7.3 mg/dL (8.4-10.5); CARBON DIOXIDE 21 mmol/L (21-33); CHLORIDE 113 mmol/L (98-107); GFR AFRICAN-AMERICAN > 60; GLUCOSE,RANDOM 101 mg/dL (70-110); MAGNESIUM 1.5 mg/dL (1.7-2.2); PHOSPHOROUS 2.2 mg/dL (2.5-4.5); POTASSIUM 3.6 mmol/L (3.6-5.0); SODIUM 137 mmol/L (132-148); TOTAL PROTEIN 4.2 g/dL (5.8-8.3)
--- NOTE | 2016-08-12 07:56 | CP.PCM.PN ---
Subjective - Date & Time of Evaluation Date of Evaluation: 08/12/16 Time of Evaluation: 07:53 - Subjective Subjective: Surgery for Dr. Keita Pt s&viviana RODRIGUEZ. Tolerating PO. Ostomy has good output now. Semi formed brown stool. Lozano. - ambulation. Denies F/C/n/V/D/Cp/SOB. Resting comfortably. Objective - Vital Signs/Intake and Output Vital Signs (last 24 hours): Temp Pulse Resp BP Pulse Ox 98.7 F 70 20 115/52 L 99 08/12/16 06:00 08/12/16 06:00 08/12/16 06:00 08/12/16 06:00 08/11/16 23:44 Intake and Output: 08/12/16 08/12/16 06:59 18:59 Intake Total 360 Output Total 900 Balance -540 - Medications Medications: Current Medications Acetaminophen (Tylenol 650mg/20.3ml Solution Ud) 320 mg PO Q4 PRN PRN Reason: Fever >100.4 F Last Admin: 08/08/16 10:30 Dose: 320 mg Amiodarone HCl (Cordarone) 400 mg PO BID [facility] Last Admin: 08/11/16 18:10 Dose: 400 mg Aspirin (Aspirin Chewable) 81 mg PO DAILY [facility] Last Admin: 08/11/16 09:38 Dose: 81 mg Atorvastatin Calcium (Lipitor) 40 mg PO DIN [facility] Last Admin: 08/11/16 18:12 Dose: 40 mg Benzocaine/Menthol (Cepacol Sore Throat) 1 [place] MT Q2H PRN PRN Reason: Sore Throat Last Admin: 08/08/16 10:10 Dose: 1 burton Calcium Carbonate (Oscal) 500 mg PO DAILY [facility] Last Admin: 08/11/16 09:38 Dose: 500 mg Cholecalciferol (Vitamin D) 2,000 iu PO DAILY [facility] Last Admin: 08/11/16 09:39 Dose: 2,000 iu Clonidine HCl (Catapres Tts1 0.1 Mg/24 Hr) 1 patch TD Q7D@1000 [facility] Last Admin: 08/07/16 16:16 Dose: 1 patch Donepezil HCl (Aricept) 10 mg PO HS [facility] Last Admin: 08/11/16 21:32 Dose: 10 mg Enoxaparin Sodium (Lovenox) 60 mg SC Q12 [facility] PRN Reason: Protocol Last Admin: 08/11/16 21:31 Dose: 60 mg Ferrous Sulfate (Feosol) 324 mg PO TID [facility] Last Admin: 08/11/16 18:11 Dose: 324 mg Hydralazine HCl (Apresoline) 10 mg IVP Q6 PRN PRN Reason: Other Last Admin: 08/10/16 00:15 Dose: 10 mg Metronidazole (Flagyl) 500 mg in 100 mls @ 100 mls/hr IVPB Q8 JENNIFER PRN Reason: Protocol Last Admin: 08/12/16 05:29 Dose: 100 mls/hr Fluconazole (Diflucan Iv 200 Mg/100 Ml Ns) 100 mls @ 100 mls/hr IVPB DAILY [facility] PRN Reason: Protocol Last Admin: 08/11/16 09:39 Dose: 100 mls/hr Ampicillin Sodium/Sulbactam Sodium (Unasyn 1 Gm-0.5 Gm) 1 gm in 100 mls @ 100 mls/hr IVPB Q6 JENNIFER PRN Reason: Protocol Last Admin: 08/12/16 05:30 Dose: 100 mls/hr Diltiazem HCl 125 mg/ Sodium (Chloride) 125 mls @ 5 mls/hr IV .Q24H JENNIFER; 5 MG/ HR PRN Reason: Protocol Last Admin: 08/11/16 18:46 Dose: 5 mg/hr, 5 mls/hr Vancomycin HCl (Vancomycin 1gm) 1 g in 250 mls @ 167 mls/hr IVPB Q12 JENNIFER PRN Reason: Protocol Last Admin: 08/11/16 21:31 Dose: 167 mls/hr Metoprolol Tartrate (Lopressor) 50 mg PO BID [facility] Last Admin: 08/11/16 18:11 Dose: 50 mg Morphine Sulfate (Morphine) 0.5 mg IVP Q4H PRN PRN Reason: Pain, moderate (4-7) Ondansetron HCl (Zofran Inj) 4 mg IVP Q6 PRN PRN Reason: Nausea/Vomiting Pantoprazole Sodium (Protonix Ec Tab) 20 mg PO ACB [facility] Last Admin: 08/11/16 08:09 Dose: 20 mg - Labs Labs: 08/12/16 05:30 08/12/16 05:30 PT 15.2 Seconds (9.9-11.8) H 08/07/16 11:30 INR 1.41 (0.93-1.08) H 08/07/16 11:30 APTT 32.7 Seconds (23.7-30.8) H 08/07/16 11:30 - Constitutional Appears: No Acute Distress - Head Exam Head Exam: ATRAUMATIC, NORMAL INSPECTION, NORMOCEPHALIC - Eye Exam Eye Exam: EOMI, Normal appearance, PERRL Pupil Exam: NORMAL ACCOMODATION, PERRL - ENT Exam ENT Exam: Mucous Membranes Moist, Normal Exam - Neck Exam Neck Exam: Full ROM, Normal Inspection. absent: Lymphadenopathy - Respiratory Exam Respiratory Exam: Clear to Ausculation Bilateral, NORMAL BREATHING PATTERN - Cardiovascular Exam Cardiovascular Exam: REGULAR RHYTHM, +S1, +S2. absent: Murmur - GI/Abdominal Exam GI & Abdominal Exam: Soft, Normal Bowel Sounds. absent: Distended, Firm, Guarding, Tenderness Additional comments: Ostomy functining. [place]. Semi formed brown stool . Incision C/D/I - Exam Additional comments: Lozano in place - Extremities Exam Extremities Exam: Joint Swelling, Pedal Edema. absent: Full ROM - Neurological Exam Neurological Exam: Alert, Awake, CN II-XII Intact, Oriented x3 - Psychiatric Exam Psychiatric exam: Normal Affect, Normal Mood - Skin Skin Exam: Dry, Intact, Normal Color, Warm Assessment and Plan - Assessment and Plan (Free Text) Assessment: 86F s/p sigmoid colon resection and colostomy ; POD#6 CXR: b/l low lobe infiltration Plan: - soft diet - Aspiration precaution - monitor for bowel function - Encourage out of bed to chair with PT - Monitor drain outputs - Medical management. - Will d/w Dr. Keita
--- NOTE | 2016-08-12 07:59 | CP.PCM.PN ---
Subjective - Date & Time of Evaluation Date of Evaluation: 08/12/16 Time of Evaluation: 07:57 - Subjective Subjective: seen and examiend no acute evebnts o/n Objective - Vital Signs/Intake and Output Vital Signs (last 24 hours): Temp Pulse Resp BP Pulse Ox 98.7 F 70 20 115/52 L 99 08/12/16 06:00 08/12/16 06:00 08/12/16 06:00 08/12/16 06:00 08/11/16 23:44 Intake and Output: 08/12/16 08/12/16 06:59 18:59 Intake Total 360 Output Total 900 Balance -540 - Medications Medications: Current Medications Acetaminophen (Tylenol 650mg/20.3ml Solution Ud) 320 mg PO Q4 PRN PRN Reason: Fever >100.4 F Last Admin: 08/08/16 10:30 Dose: 320 mg Amiodarone HCl (Cordarone) 400 mg PO BID [facility] Last Admin: 08/11/16 18:10 Dose: 400 mg Aspirin (Aspirin Chewable) 81 mg PO DAILY [facility] Last Admin: 08/11/16 09:38 Dose: 81 mg Atorvastatin Calcium (Lipitor) 40 mg PO DIN [facility] Last Admin: 08/11/16 18:12 Dose: 40 mg Benzocaine/Menthol (Cepacol Sore Throat) 1 [place] MT Q2H PRN PRN Reason: Sore Throat Last Admin: 08/08/16 10:10 Dose: 1 burton Calcium Carbonate (Oscal) 500 mg PO DAILY [facility] Last Admin: 08/11/16 09:38 Dose: 500 mg Cholecalciferol (Vitamin D) 2,000 iu PO DAILY [facility] Last Admin: 08/11/16 09:39 Dose: 2,000 iu Clonidine HCl (Catapres Tts1 0.1 Mg/24 Hr) 1 patch TD Q7D@1000 [facility] Last Admin: 08/07/16 16:16 Dose: 1 patch Donepezil HCl (Aricept) 10 mg PO HS [facility] Last Admin: 08/11/16 21:32 Dose: 10 mg Enoxaparin Sodium (Lovenox) 60 mg SC Q12 [facility] PRN Reason: Protocol Last Admin: 08/11/16 21:31 Dose: 60 mg Ferrous Sulfate (Feosol) 324 mg PO TID [facility] Last Admin: 08/11/16 18:11 Dose: 324 mg Hydralazine HCl (Apresoline) 10 mg IVP Q6 PRN PRN Reason: Other Last Admin: 08/10/16 00:15 Dose: 10 mg Metronidazole (Flagyl) 500 mg in 100 mls @ 100 mls/hr IVPB Q8 JENNIFER PRN Reason: Protocol Last Admin: 08/12/16 05:29 Dose: 100 mls/hr Fluconazole (Diflucan Iv 200 Mg/100 Ml Ns) 100 mls @ 100 mls/hr IVPB DAILY [facility] PRN Reason: Protocol Last Admin: 08/11/16 09:39 Dose: 100 mls/hr Ampicillin Sodium/Sulbactam Sodium (Unasyn 1 Gm-0.5 Gm) 1 gm in 100 mls @ 100 mls/hr IVPB Q6 JENNIFER PRN Reason: Protocol Last Admin: 08/12/16 05:30 Dose: 100 mls/hr Diltiazem HCl 125 mg/ Sodium (Chloride) 125 mls @ 5 mls/hr IV .Q24H JENNIFER; 5 MG/ HR PRN Reason: Protocol Last Admin: 08/11/16 18:46 Dose: 5 mg/hr, 5 mls/hr Vancomycin HCl (Vancomycin 1gm) 1 g in 250 mls @ 167 mls/hr IVPB Q12 JENN[facility]ER PRN Reason: Protocol Last Admin: 08/11/16 21:31 Dose: 167 mls/hr Metoprolol Tartrate (Lopressor) 50 mg PO BID [facility] Last Admin: 08/11/16 18:11 Dose: 50 mg Morphine Sulfate (Morphine) 0.5 mg IVP Q4H PRN PRN Reason: Pain, moderate (4-7) Ondansetron HCl (Zofran Inj) 4 mg IVP Q6 PRN PRN Reason: Nausea/Vomiting Pantoprazole Sodium (Protonix Ec Tab) 20 mg PO ACB [facility] Last Admin: 08/11/16 08:09 Dose: 20 mg - Labs Labs: 08/12/16 05:30 08/12/16 05:30 PT 15.2 Seconds (9.9-11.8) H 08/07/16 11:30 INR 1.41 (0.93-1.08) H 08/07/16 11:30 APTT 32.7 Seconds (23.7-30.8) H 08/07/16 11:30 - Constitutional Appears: Non-toxic - Head Exam Head Exam: ATRAUMATIC - Eye Exam Eye Exam: Normal appearance - ENT Exam ENT Exam: Normal Exam - Neck Exam Neck Exam: Normal Inspection - Respiratory Exam Respiratory Exam: NORMAL BREATHING PATTERN - Cardiovascular Exam Cardiovascular Exam: +S1, +S2 - GI/Abdominal Exam Additional comments: soft + ostomy - Neurological Exam Neurological Exam: Alert, Oriented x3 - Psychiatric Exam Psychiatric exam: Normal Mood - Skin Skin Exam: Normal Color Assessment and Plan - Assessment and Plan (Free Text) Assessment: arf / afib w/ rvr/ hypomagnesimua / proteincalorie malnutrition plan: estelle stable - uop good rec start d5 ns @ 50 cc / hr given that she is not eating much yet replete magnesium today encourage nutrition
[2016-08-12] MEDS: Pantoprazole 20 mg EC Tab PO SCH (08:30)
[2016-08-12] MEDS ORDERED: Magnesium Sulfate 2 GM in Sodium Chloride 0.9% 100 ML IV ONE (08:50)
[2016-08-12] MEDS ORDERED: Potassium Chloride 20 mEq ER Tab PO ONE (08:52)
[2016-08-12] MEDS: Potassium & Sodium Phosphate PO SCH ×2 (10:02→17:10)
[2016-08-12] MEDS: Enoxaparin 60 mg Syringe SC SCH ×2 (10:05→21:54)
[2016-08-12] MEDS: Fluconazole IV 200mg/100 ml NS 100 ML IVPB SCH (10:06)
[2016-08-12] MEDS: Vancomycin 1gm in NS 250ml 1 G/250 ML BAG IVPB SCH ×2 (10:06→23:39)
[2016-08-12] MEDS: Dextrose 5%/0.9% NS 1,000 ML IV SCH (10:12)
[2016-08-12] MEDS: Acetaminophen 650mg/20.3ml solution UD PO PRN (14:24)
--- NOTE | 2016-08-12 14:32 | CARD ---
APPROVED REPORT EKG Measurement Heart [id number] <Conclusion> Atrial fibrillation Left axis deviation Septal infarct, age undetermined ST & T wave abnormality, consider anterior ischemia or digitalis effect Abnormal ECG
--- NOTE | 2016-08-12 15:13 | PN ---
DATE: 08/12/2016 REASON FOR DICTATION: Covering Dr. Cruz. REASON FOR CONSULTATION: Atrial fibrillation with rapid rate, postop. BRIEF CLINICAL HISTORY: An 86-year-old female with a past medical history significant for explorator y laparotomy. Postop, patient went into atrial fibrillation. Denies any chest pain, shortness of br eath, any palpitation. History of CAD status post PTCA with bare metal stents in April. PHYSICAL EXAMINATION: VITAL SIGNS: Temperature afebrile, heart rate 69, blood pressure 115/52. HEENT: PERRLA. Extraocular muscles intact. NECK: Supple. No carotid bruits. No thyromegaly. CHEST: Clear to auscultation. HEART: S1, S2 regular. ABDOMEN: Soft. EXTREMITIES: Clubbing, cyanosis negative. BLOOD WORKUP: WBC 13. , hemoglobin 8.8, hematocrit 27, platelet count 337. Chemistry shows sodi um , potassium 3.6, chloride 113, carbon dioxide 21, anion gap of 17, BUN 11, creatinine 0.5. T roponin 0.18. IMPRESSION: Non-ST segment myocardial infarction, status post exploratory laparotomy, hypokalemia, p rotein-calorie malnutrition, severe, which was present on admission, atrial fibrillation, rate well c ontrolled, status post coronary artery disease, status post bare metal stent. RECOMMENDATION: Supplement potassium. Change Cardizem to p.o. We will change to Cardizem p.o. We will decrease amiodarone also to 200 mg daily and continue digoxin as rate is well controlled. Michele nue deep venous thrombosis prophylaxis. Continue Lovenox. Will follow. Will transfer the care guillermoregino galindo to Dr. Cruz. Thank you, Dr. Diaz, for providing us the opportunity in taking care of the patient. Lindsay Li MD cc: [id number] TT: 08/12/2016 15:13:02 Confirmation # [id number] Dictation # [id number]
--- NOTE | 2016-08-12 15:53 | CP.PCM.PN ---
Subjective - Date & Time of Evaluation Date of Evaluation: 08/12/16 Time of Evaluation: 14:00 - Subjective Subjective: Infectious Disease Follow Up: August 12, 2016 85 yo female sent [place] [facility] [place] Keita's office after discovery of purulent drainage from left lower abdominal drain site. She has a history of hypertension, GI bleed, CAD with stents, anemia, and osteoporosis. Many of her hospitalizations last year were for GI bleed. 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 She is currently on ceftriaxone and Flagyl. This will cover most recurrences of E. coli. Taken to IR by Dr. Zaldivar on Friday. 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 IR drain is still showing fecal material. E. coli in cultures of wound site. Yeast in urine cultures. Tre-colectomy yesteday with monitoring post surgery in MICU. Patient transferred to medical floor. Low urine output. Noted events of previous night where patient was briefly unresponsive and finally awoke after several attempts with deep chest rubs. Patient was lethargic this morning according to notes. Today the patient had bouts of tachycardia up to 200 bpm. Reported to me by resident that the patient had fevers up to 101.2 F yesterday. I had suggested Vancomycin use based on that information. I do not see any recording of fevers in the chart at this point. Reports are of tachycardia. The patient did have a CT scan that showed bilateral pleural effusions which was reported to me by the medical accounting clerk. Vancomycin added for potential hospital acquired pneumonia. The patient is more stable. She remains on a Cardizem drip now. Objective - Vital Signs/Intake and Output Vital Signs (last 24 hours): Temp Pulse Resp BP Pulse Ox 97.1 F L 68 19 138/92 H 99 08/12/16 12:00 08/12/16 14:10 08/12/16 12:00 08/12/16 14:10 08/11/16 23:44 Intake and Output: 08/12/16 08/12/16 06:59 18:59 Intake Total 360 Output Total 900 550 Balance -540 -550 - Medications Medications: Current Medications Acetaminophen (Tylenol 650mg/20.3ml Solution Ud) 320 mg PO Q4 PRN PRN Reason: Fever >100.4 F Last Admin: 08/12/16 14:24 Dose: 320 mg Amiodarone HCl (Cordarone) 400 mg PO BID [facility] Stop: 08/12/16 23:59 Last Admin: 08/12/16 10:02 Dose: 400 mg Amiodarone HCl (Cordarone) 200 mg PO DAILY [facility] Aspirin (Aspirin Chewable) 81 mg PO DAILY [facility] Last Admin: 08/12/16 10:02 Dose: 81 mg Atorvastatin Calcium (Lipitor) 40 mg PO DIN [facility] Last Admin: 08/11/16 18:12 Dose: 40 mg Benzocaine/Menthol (Cepacol Sore Throat) 1 [place] MT Q2H PRN PRN Reason: Sore Throat Last Admin: 08/08/16 10:10 Dose: 1 burton Calcium Carbonate (Oscal) 500 mg PO DAILY [facility] Last Admin: 08/12/16 10:04 Dose: 500 mg Cholecalciferol (Vitamin D) 2,000 iu PO DAILY [facility] Last Admin: 08/12/16 10:04 Dose: 2,000 iu Clonidine HCl (Catapres Tts1 0.1 Mg/24 Hr) 1 patch TD Q7D@1000 [facility] Last Admin: 08/07/16 16:16 Dose: 1 patch Diltiazem HCl (Cardizem) 30 mg PO QID [facility] Last Admin: 08/12/16 14:10 Dose: 30 mg Donepezil HCl (Aricept) 10 mg PO HS [facility] Last Admin: 08/11/16 21:32 Dose: 10 mg Enoxaparin Sodium (Lovenox) 60 mg SC Q12 [facility] PRN Reason: Protocol Last Admin: 08/12/16 10:05 Dose: 60 mg Ferrous Sulfate (Feosol) 324 mg PO TID [facility] Last Admin: 08/12/16 14:10 Dose: 324 mg Hydralazine HCl (Apresoline) 10 mg IVP Q6 PRN PRN Reason: Other Last Admin: 08/10/16 00:15 Dose: 10 mg Metronidazole (Flagyl) 500 mg in 100 mls @ 100 mls/hr IVPB Q8 [facility] PRN Reason: Protocol Last Admin: 08/12/16 14:11 Dose: 100 mls/hr Ampicillin Sodium/Sulbactam Sodium (Unasyn 1 Gm-0.5 Gm) 1 gm in 100 mls @ 100 mls/hr IVPB Q6 [facility] PRN Reason: Protocol Last Admin: 08/12/16 12:35 Dose: 100 mls/hr Vancomycin HCl (Vancomycin 1gm) 1 g in 250 mls @ 167 mls/hr IVPB Q12 [facility]ENN[facility]ER PRN Reason: Protocol Last Admin: 08/12/16 10:06 Dose: 167 mls/hr Dextrose/Sodium Chloride (Dextrose 5%/0.9% Ns 1000 Ml) 1,000 mls @ 50 mls/hr IV .Q20H [facility] Last Admin: 08/12/16 10:12 Dose: 50 mls/hr Metoprolol Tartrate (Lopressor) 50 mg PO BID [facility] Last Admin: 08/12/16 10:03 Dose: 50 mg Morphine Sulfate (Morphine) 0.5 mg IVP Q4H PRN PRN Reason: Pain, moderate (4-7) Ondansetron HCl (Zofran Inj) 4 mg IVP Q6 PRN PRN Reason: Nausea/Vomiting Pantoprazole Sodium (Protonix Ec Tab) 20 mg PO ACB [facility] Last Admin: 08/12/16 08:30 Dose: 20 mg Potassium Phos/Sodium Phos (Neutra-Phos) 1 pkt PO BID [facility] Stop: 08/14/16 10:01 Last Admin: 08/12/16 10:02 Dose: 1 pkt - Labs Labs: 08/12/16 05:30 08/12/16 05:30 PT 15.2 Seconds (9.9-11.8) H 08/07/16 11:30 INR 1.41 (0.93-1.08) H 08/07/16 11:30 APTT 32.7 Seconds (23.7-30.8) H 08/07/16 11:30 - Constitutional Appears: Non-toxic, No Acute Distress, Chronically Ill - Head Exam Head Exam: ATRAUMATIC, NORMOCEPHALIC - Eye Exam Eye Exam: EOMI, PERRL Pupil Exam: NORMAL ACCOMODATION, PERRL - ENT Exam ENT Exam: Mucous Membranes Moist, Normal External Ear Exam, TM's Normal Bilaterally - Respiratory Exam Respiratory Exam: Clear to Ausculation Bilateral, NORMAL BREATHING PATTERN. absent: Rales, Rhonchi, Wheezes - Cardiovascular Exam Cardiovascular Exam: Irregular Rhythm, +S1, +S2 - GI/Abdominal Exam GI & Abdominal Exam: Soft, Normal Bowel Sounds. absent: Distended, Tenderness Additional comments: colostomy in place. s/p sigmoidectomy. - Extremities Exam Extremities Exam: Full ROM, Normal Inspection - Neurological Exam Neurological Exam: Alert, Awake, CN II-XII Intact, Oriented x3 - Psychiatric Exam Psychiatric exam: Normal Affect, Normal Mood - Skin Skin Exam: Intact, Normal Color Assessment and Plan - Assessment and Plan (Free Text) Assessment: 86 yo female with intra-abdominal abscess presenting with drainage of pus. Taken by IR for drain placement. Spoke with Dr. Zaldivar in detail regarding case. He fears formation of fistula at this time. On Rocephin and Metronidazole. Last hospitalization showed VRE and E. coli growth. Supportive care with low tolerance for switching antibiotics to one such as meropenem. Current culture is showing E. coli that is sensitive to Rocephin and Ancef. Continuing on Ancef. On Diflucan to cover yeast in the urine. New cultures taken that have been negative to date. Sigmoid colectomy during exploratory laparotomy. Continue Ancef. Colostomy in place. On medical floor. Vancomycin IV continued. Repeat culture on 08/10/2016 negative so far. So far no further tachycardia episodes for the past 36-48 hours. Supportive care. Thank you for allowing me to participate in the care of the patient, we will follow with you.
[2016-08-12] MEDS: Morphine 2 mg/ml ISec IVP PRN ×2 (17:08→21:54)
--- NOTE | 2016-08-13 04:15 | PN ---
DATE: 08/12/2016 SUBJECTIVE: This patient was seen and evaluated earlier today. The patient's family was at the bedside. The patient is on pureed diet, tolerating. PHYSICAL EXAMINATION: VITAL SIGNS: Temperature is 97, pulse rate is 65, blood pressure is 135/78. HEENT: Atraumatic, anicteric. NECK: Supple. HEART: S1, S2 heard. LUNGS: Bilateral air entry present. Bilateral air entry reduced in the bases. ABDOMEN: Soft. LABORATORY DATA: Hemoglobin 8.6, hematocrit 27, WBC is 13.2, platelets 333, BUN 11, creatinine 1.5. IMPRESSION: This 86-year-old patient is status post surgery. The patient had a diverticular perforation, abscess, status post irrigation and drainage. Had a Brad procedure done, now colostomy appears okay. We will continue the antibiotics . The patient had a spike in temperature yesterday of 101.2. Continue the surgical follow up. Colostomy appears normal. The present plan is to continue the antibiotics. The patient did have would we will continue the antibiotics as per ID. Continue the postop as per surgery. Thank you very much for allowing us to participate in the care of the patient. Long Archuleta MD cc: [id number] TT: 08/13/2016 04:14:36 Confirmation # [id number] Dictation # [id number] tigist [email or web address]
[2016-08-13] MEDS: metroNIDAZOLE IV 500 mg/100 ml 500 MG/100 ML BAG IVPB SCH ×3 (07:01→21:54)
--- NOTE | 2016-08-13 07:27 | CP.PCM.PN ---
Subjective - Date & Time of Evaluation Date of Evaluation: 08/13/16 Time of Evaluation: 07:00 - Subjective Subjective: General Surgery Progress Note for Dr. Keita Pt was seen and examined at bedside. No acute complaints at this time. No acute or adverse events overnight as per nursing staff. Pt does have mild complaints of abdominal pain. She is tolerating PO intake and ambulating with PT. Pt has good output from ostomy. Pt denied fever, chills, n/v. Cote is in place. Objective - Vital Signs/Intake and Output Vital Signs (last 24 hours): Temp Pulse Resp BP Pulse Ox 98.9 F 94 H 18 136/90 100 08/13/16 00:01 08/13/16 02:00 08/13/16 00:01 08/13/16 00:01 08/13/16 00:01 Intake and Output: 08/13/16 08/13/16 06:59 18:59 Intake Total 0 Output Total 350 Balance -350 - Medications Medications: Current Medications Acetaminophen (Tylenol 650mg/20.3ml Solution Ud) 320 mg PO Q4 PRN PRN Reason: Fever >100.4 F Last Admin: 08/12/16 14:24 Dose: 320 mg Amiodarone HCl (Cordarone) 200 mg PO DAILY [facility] Aspirin (Aspirin Chewable) 81 mg PO DAILY [facility] Last Admin: 08/12/16 10:02 Dose: 81 mg Atorvastatin Calcium (Lipitor) 40 mg PO DIN [facility] Last Admin: 08/12/16 17:11 Dose: 40 mg Benzocaine/Menthol (Cepacol Sore Throat) 1 [place] MT Q2H PRN PRN Reason: Sore Throat Last Admin: 08/08/16 10:10 Dose: 1 burton Calcium Carbonate (Oscal) 500 mg PO DAILY [facility] Last Admin: 08/12/16 10:04 Dose: 500 mg Cholecalciferol (Vitamin D) 2,000 iu PO DAILY [facility] Last Admin: 08/12/16 10:04 Dose: 2,000 iu Clonidine HCl (Catapres Tts1 0.1 Mg/24 Hr) 1 patch TD Q7D@1000 [facility] Last Admin: 08/07/16 16:16 Dose: 1 patch Diltiazem HCl (Cardizem) 30 mg PO QID [facility] Last Admin: 08/12/16 21:45 Dose: 30 mg Donepezil HCl (Aricept) 10 mg PO HS [facility] Last Admin: 08/12/16 21:45 Dose: 10 mg Enoxaparin Sodium (Lovenox) 60 mg SC Q12 [facility] PRN Reason: Protocol Last Admin: 08/12/16 21:54 Dose: 60 mg Ferrous Sulfate (Feosol) 324 mg PO TID [facility] Last Admin: 08/12/16 17:11 Dose: 324 mg Hydralazine HCl (Apresoline) 10 mg IVP Q6 PRN PRN Reason: Other Last Admin: 08/10/16 00:15 Dose: 10 mg Metronidazole (Flagyl) 500 mg in 100 mls @ 100 mls/hr IVPB Q8 [facility] PRN Reason: Protocol Last Admin: 08/13/16 07:01 Dose: 100 mls/hr Ampicillin Sodium/Sulbactam Sodium (Unasyn 1 Gm-0.5 Gm) 1 gm in 100 mls @ 100 mls/hr IVPB Q6 [facility] PRN Reason: Protocol Last Admin: 08/13/16 06:59 Dose: 100 mls/hr Vancomycin HCl (Vancomycin 1gm) 1 g in 250 mls @ 167 mls/hr IVPB Q12 [facility] PRN Reason: Protocol Last Admin: 08/12/16 23:39 Dose: 167 mls/hr Dextrose/Sodium Chloride (Dextrose 5%/0.9% Ns 1000 Ml) 1,000 mls @ 50 mls/hr IV .Q20H [facility] Last Admin: 08/12/16 10:12 Dose: 50 mls/hr Metoprolol Tartrate (Lopressor) 50 mg PO BID [facility] Last Admin: 08/12/16 17:13 Dose: 50 mg Morphine Sulfate (Morphine) 0.5 mg IVP Q4H PRN PRN Reason: Pain, moderate (4-7) Last Admin: 08/12/16 21:54 Dose: 0.5 mg Ondansetron HCl (Zofran Inj) 4 mg IVP Q6 PRN PRN Reason: Nausea/Vomiting Pantoprazole Sodium (Protonix Ec Tab) 20 mg PO ACB [facility] Last Admin: 08/12/16 08:30 Dose: 20 mg Potassium Phos/Sodium Phos (Neutra-Phos) 1 pkt PO BID [facility] Stop: 08/14/16 10:01 Last Admin: 08/12/16 17:10 Dose: 1 pkt - Labs Labs: 08/12/16 05:30 08/12/16 05:30 PT 15.2 Seconds (9.9-11.8) H 08/07/16 11:30 INR 1.41 (0.93-1.08) H 08/07/16 11:30 APTT 32.7 Seconds (23.7-30.8) H 08/07/16 11:30 - Constitutional Appears: No Acute Distress - Head Exam Head Exam: ATRAUMATIC, NORMAL INSPECTION, NORMOCEPHALIC - Eye Exam Eye Exam: EOMI, Normal appearance, PERRL Pupil Exam: NORMAL ACCOMODATION, PERRL - ENT Exam ENT Exam: Mucous Membranes Moist, Normal Exam - Respiratory Exam Respiratory Exam: Clear to Ausculation Bilateral, NORMAL BREATHING PATTERN - Cardiovascular Exam Cardiovascular Exam: REGULAR RHYTHM, +S1, +S2. absent: Murmur - GI/Abdominal Exam GI & Abdominal Exam: Soft, Tenderness (pedro luis draining serous fluid. Abdominal dressing CDI), Normal Bowel Sounds Additional comments: good ostomy output semi formed stool - Exam Exam: NORMAL INSPECTION (cote in place) - Extremities Exam Extremities Exam: Joint Swelling, Pedal Edema - Neurological Exam Neurological Exam: Alert, Awake, CN II-XII Intact, Oriented x3 - Psychiatric Exam Psychiatric exam: Normal Affect, Normal Mood - Skin Skin Exam: Dry, Intact, Normal Color, Warm Assessment and Plan - Assessment and Plan (Free Text) Assessment: 86 F s/p sigmoid colon resection and colostomy POD#7 - tolerating soft diet, adat - aspiration precautions, CXR: b/l low lobe infiltration, continue abx as per ID - monitor for bowel function, currently has good semi-formed stool in ostomy - monitor noreen drain with serious fluid, fu labs - Encourage ambulation OOB with PT - Medical management as per primary team Seen reviewed and discussed with attending Markus Allison PGY1
[2016-08-13] MEDS: Morphine 2 mg/ml ISec IVP PRN (07:34)
[2016-08-13 07:54] LABS: ADD MANUAL DIFF? NO
[2016-08-13 07:56] LABS: GRAN # 13.33 (1.4-6.5); GRAN % 85.1 % (50.0-68.0); LYMPH # 1.3 (1.2-3.4); LYMPH % 8.1 % (22.0-35.0); MEAN CELL VOLUME 92.9 fL (80.0-105.0); MEAN CORPUSCULAR HEMOGLOBIN 30.3 pg (25.0-35.0); MEAN CORPUSCULAR HGB CONC 32.6 g/dl (31.0-37.0); MEAN PLATELET VOLUME 9.3 fl (7.0-11.0); MONO # 1.1 (0.1-0.6); MONO % 6.8 % (1.0-6.0); PLATELET COUNT 361 10^3/uL (120.0-450.0); RED CELL DISTRIBUTION WIDTH 20.4 % (11.5-14.5); WHITE BLOOD COUNT 15.7 10^3/ul (4.5-11.0)
[2016-08-13 08:07] LABS: ALKALINE PHOSPHATASE 153 U/L (38-133); ALT/SGPT 30 U/L (7-56); AST/SGOT 21 U/L (15-39); BILIRUBIN,TOTAL 0.3 mg/dL (0.2-1.3); BLOOD UREA NITROGEN 14 mg/dL (7-21); CALCIUM 7.2 mg/dL (8.4-10.5); CARBON DIOXIDE 21 mmol/L (21-33); CHLORIDE 113 mmol/L (95-110); GFR AFRICAN-AMERICAN > 60; GLUCOSE,RANDOM 88 mg/dL (70-110); MAGNESIUM 1.8 mg/dL (1.7-2.2); PHOSPHOROUS 2.7 mg/dL (2.5-4.5); POTASSIUM 4.3 mmol/L (3.6-5.0); SODIUM 135 mmol/L (132-148); TOTAL PROTEIN 4.2 g/dL (5.8-8.3)
[2016-08-13 08:08] LABS: ALB/GLOB RATIO 0.8 (1.1-1.8)
[2016-08-13 08:17] LABS: HEMATOCRIT 22.1 % (36.0-48.0)
[2016-08-13] MEDS: Pantoprazole 20 mg EC Tab PO SCH (08:32)
--- NOTE | 2016-08-13 08:39 | PN ---
DATE: 08/10/2016 This patient was seen and evaluated earlier today. Discussed with the nursing staff. The morning events were noticed. The patient was tachycardic in the morning. Now, the rate is controlled. LABORATORY DATA: Hemoglobin 10.1, hematocrit 31.5, WBCs 13.3, platelets 204. Chemistry is essentially unremarkable. Troponin is elevated .3. VITAL SIGNS: Temperature is 98.2, pulse 80, blood pressure is 104/65, respirations 20. PHYSICAL EXAMINATION: GENERAL: Comfortable, not in acute distress. The patient has a colostomy. No distress. HEENT: Atraumatic, anicteric. NECK: Supple. HEART: S1, S2 heard. LUNGS: Bilateral air entry present. ABDOMEN: Soft. Colostomy present. EXTREMITIES: Bilateral pneumatic compression present. IMPRESSION: This is an 86-year-old patient with Brad's procedure for diverticular abscess, has tachycardia, found to have new onset atrial fibrillation. The patient is now on Lovenox. The patient pleural effusion. Status post Brad procedure for diverticular abscess, new onset atrial fibrillation, on Lovenox. History of questionable non-ST segment myocardial infarction, elevated troponin level. RECOMMENDATIONS: Continue the cardiology followup. The patient is tolerating the diet. Close surgical followup. Discussed with the patient's family. They are at the bedside. Long Archuleta MD cc: [id number] TT: 08/11/2016 08:20:46 Confirmation # [id number] Dictation # [id number] en MTDD
--- NOTE | 2016-08-13 09:10 | CP.PCM.PN ---
<RheaJess - Last Filed: 08/13/16 15:24> Subjective - Date & Time of Evaluation Date of Evaluation: 08/13/16 Time of Evaluation: 07:40 - Subjective Subjective: Medicine progress note for Dr Zuniga and Dr Diaz. As per nurse, patient refused her po meds last night, including po Cardizem, thus her HR was in the 120s this AM. Gave patient 30 mg po stat, HR went down to 100s, gave stat dose digoxin 0.25 mg ivp. Patient appears more lethargic today, opens eyes only to verbal commands, and is moaning, c/o abdominal pain, alerted nurse to give morphine for pain. Alerted the patient's grand daughter on the fact that patient is refusing meds ( po and iv), patient's daughter reported she's not sure if patient is demented or not ( medical records stated patient's demented and is on eliquis at home), grand daughter states she will pass by later to discuss and speak to patient. Objective - Vital Signs/Intake and Output Vital Signs (last 24 hours): Temp Pulse Resp BP Pulse Ox 97.9 F 125 H 18 133/92 H 100 08/13/16 06:00 08/13/16 07:34 08/13/16 06:00 08/13/16 06:00 08/13/16 06:00 Intake and Output: 08/13/16 08/13/16 06:59 18:59 Intake Total 0 Output Total 350 Balance -350 - Medications Medications: Current Medications Acetaminophen (Tylenol 650mg/20.3ml Solution Ud) 320 mg PO Q4 PRN PRN Reason: Fever >100.4 F Last Admin: 08/12/16 14:24 Dose: 320 mg Amiodarone HCl (Cordarone) 200 mg PO DAILY [facility] Aspirin (Aspirin Chewable) 81 mg PO DAILY [facility] Last Admin: 08/12/16 10:02 Dose: 81 mg Atorvastatin Calcium (Lipitor) 40 mg PO DIN [facility] Last Admin: 08/12/16 17:11 Dose: 40 mg Benzocaine/Menthol (Cepacol Sore Throat) 1 bur[place] MT Q2H PRN PRN Reason: Sore Throat Last Admin: 08/08/16 10:10 Dose: 1 burton Calcium Carbonate (Oscal) 500 mg PO DAILY [facility] Last Admin: 08/12/16 10:04 Dose: 500 mg Cholecalciferol (Vitamin D) 2,000 iu PO DAILY [facility] Last Admin: 08/12/16 10:04 Dose: 2,000 iu Clonidine HCl (Catapres Tts1 0.1 Mg/24 Hr) 1 patch TD Q7D@1000 [facility] Last Admin: 08/07/16 16:16 Dose: 1 patch Digoxin (Lanoxin) 0.25 mg PO DAILY@1400 [facility] Diltiazem HCl (Cardizem) 30 mg PO QID [facility] Last Admin: 08/13/16 07:34 Dose: 30 mg Donepezil HCl (Aricept) 10 mg PO HS [facility] Last Admin: 08/12/16 21:45 Dose: 10 mg Enoxaparin Sodium (Lovenox) 60 mg SC Q12 [facility] PRN Reason: Protocol Last Admin: 08/12/16 21:54 Dose: 60 mg Ferrous Sulfate (Feosol) 324 mg PO TID [facility] Last Admin: 08/12/16 17:11 Dose: 324 mg Furosemide (Lasix) 20 mg IVP ONCE [facility] Stop: 08/14/16 09:16 Hydralazine HCl (Apresoline) 10 mg IVP Q6 PRN PRN Reason: Other Last Admin: 08/10/16 00:15 Dose: 10 mg Metronidazole (Flagyl) 500 mg in 100 mls @ 100 mls/hr IVPB Q8 [facility] PRN Reason: Protocol Last Admin: 08/13/16 07:01 Dose: 100 mls/hr Ampicillin Sodium/Sulbactam Sodium (Unasyn 1 Gm-0.5 Gm) 1 gm in 100 mls @ 100 mls/hr IVPB Q6 [facility] PRN Reason: Protocol Last Admin: 08/13/16 06:59 Dose: 100 mls/hr Vancomycin HCl (Vancomycin 1gm) 1 g in 250 mls @ 167 mls/hr IVPB Q12 [facility] PRN Reason: Protocol Last Admin: 08/12/16 23:39 Dose: 167 mls/hr Dextrose/Sodium Chloride (Dextrose 5%/0.9% Ns 1000 Ml) 1,000 mls @ 50 mls/hr IV .Q20H [facility] Last Admin: 08/12/16 10:12 Dose: 50 mls/hr Metoprolol Tartrate (Lopressor) 50 mg PO BID [facility] Last Admin: 08/12/16 17:13 Dose: 50 mg Morphine Sulfate (Morphine) 0.5 mg IVP Q4H PRN PRN Reason: Pain, moderate (4-7) Last Admin: 08/13/16 07:34 Dose: 0.5 mg Ondansetron HCl (Zofran Inj) 4 mg IVP Q6 PRN PRN Reason: Nausea/Vomiting Pantoprazole Sodium (Protonix Ec Tab) 20 mg PO ACB [facility] Last Admin: 08/13/16 08:32 Dose: Not Given Potassium Phos/Sodium Phos (Neutra-Phos) 1 pkt PO BID [facility] Stop: 08/14/16 10:01 Last Admin: 08/12/16 17:10 Dose: 1 pkt - Labs Labs: 08/13/16 07:45 08/13/16 07:45 PT 15.2 Seconds (9.9-11.8) H 08/07/16 11:30 INR 1.41 (0.93-1.08) H 08/07/16 11:30 APTT 32.7 Seconds (23.7-30.8) H 08/07/16 11:30 - Constitutional Appears: In Acute Distress (mild ), Older Than Stated Age, Cachectic, Chronically Ill - Head Exam Head Exam: ATRAUMATIC, NORMAL INSPECTION, NORMOCEPHALIC - Eye Exam Eye Exam: EOMI, PERRL. absent: Normal appearance (pale), Scleral icterus - ENT Exam ENT Exam: Mucous Membranes Moist - Neck Exam Neck Exam: Normal Inspection - Respiratory Exam Respiratory Exam: Decreased Breath Sounds (at the bases.), NORMAL BREATHING PATTERN. absent: Rales, Rhonchi, Wheezes, Respiratory Distress, Stridor - Cardiovascular Exam Cardiovascular Exam: Tachycardia, Irregular Rhythm, +S1, +S2, Murmur. absent: Gallop, JVD, RRR, Rubs - GI/Abdominal Exam GI & Abdominal Exam: Soft, Normal Bowel Sounds. absent: Distended, Firm, Guarding, Rigid, Tenderness Additional comments: Ostomy filled with brown stool, right pedro luis with yellowish fluid, left pedro luis with serosanguinous fluid. - Extremities Exam Extremities Exam: Pedal Edema (+2) - Neurological Exam Additional comments: Lethargic and sleepy, responds to name, and answers questions by nodding her head. - Psychiatric Exam Psychiatric exam: Depressed - Skin Skin Exam: Diaphoretic, Warm Assessment and Plan - Assessment and Plan (Free Text) Assessment: Patient is an 86 y/o with PMH of HTN, CAD s/p stents, CHF, HLD, Alzheimer's dementia, h/o cholecystectomy, Diverticulitis admitted with intra-abdominal abscess with cutaneous fistula s/p IR drain placement and removal, s/p sigmoid resection with colostomy mucous fistula POD# 6. Oliguric post op, which has now resolved. Developed RVR afib 2 days post op, was on Cardizem drip, which was switched to po Cardizem, once the rate was controlled. Plan: 1) Symptomatic acute on chronic anemia likely dilutional versus post surgical - hgb dropped to 7.2 today - No active bleeding - will transfuse 2 units of prbc. 2) New onset RVR Afib - current HR in the 100s - will increase po cardizem - continue po Lopressor 50 mg bid - Continue amiodorone 200 mg daily. - CHADS2 score of 3 for h/o chf, htn and age>75. [id number] score of 5 for age, sex, chf, htn. - Continue Lovenox 60 q12 for therapeutic lovenox. 3) NSTEMI - on therapeutic Lovenox. - Continue Lipitor, Lopressor, and asa. - cardio rec appreciated 4) HAP- - repeat bcx no growth - vanco through high - will hold off vanco and recheck tomorrow. - on unasyn - ID on the case 5) Diverticulitis with intra-abdominal abscess and cutaneous fistula s/p IR drain, s/p exp lap with sigmoid resection, colostomy mucous fistula, and washout. - c/w pain control - wound care as per surgery - OOBTC - ID and surgery following. 6) Hypokalemia/hypomag/hypophos-resolved, will continue to monitor. 7)KRIS- likely 2nd to ATN- - creat stable and uo improved - nephro rec appreciated. 8) Malnutrition with anasarca - Albumin still very low - will continue puree diet, and supplementation with ensure. - Feed with assistance - calorie count. 9) h/o HTN-continue clonidine patch, Lopressor and Hydralazine prn for htn. 10) Transaminitis-resolved 11) Vitamin D deficiency - po vitamin d 2000 12) Dementia- continue aricept 13) DVT prophylaxis: Lovenox and protonix. 14) Dispo- BRITTANY when medically optimized. Patient, seen, examined, and case discussed with Dr Zuniga. <Aubrey Zuniga - Last Filed: 08/30/16 18:54> Objective - Vital Signs/Intake and Output Vital Signs (last 24 hours): Temp Pulse Resp BP Pulse Ox 95 F L 42 L 36 H 95/57 L 96 08/17/16 12:00 08/17/16 20:00 08/17/16 20:00 08/17/16 19:00 08/17/16 20:30 - Labs Labs: 08/17/16 05:00 08/17/16 05:00 PT 12.3 Seconds (9.9-11.8) H 08/15/16 14:50 INR 1.14 (0.93-1.08) H 08/15/16 14:50 APTT 34.8 Seconds (23.7-30.8) H 08/15/16 14:50 Attending/Attestation - Attestation I have personally seen and examined this patient.: Yes I have fully participated in the care of the patient.: Yes I have reviewed all pertinent clinical information, including history, physical exam and plan: Yes Notes (Text): 08/30/16 18:54 Medical record note made by the resident after discussion with my direction and input after the patient was personally seen and examined by me. I have reviewed the chart and agree that the record accurately reflects by personal performance of the history, physical exam, data review, and medical decision-making, in the course for the patient. I have also personally directed the plan of care.
--- NOTE | 2016-08-13 10:07 | CP.PCM.PN ---
Subjective - Date & Time of Evaluation Date of Evaluation: 08/13/16 Time of Evaluation: 09:59 - Subjective Subjective: Follow up Nephrology Consultation: Assessment: Non-oliguric Acute Kidney Injury likely due to ATN due to hypotension episode: Improved B/l pleural effusion with severe hypoalbuminemia, A fib with RVR hx of HTN, CAD s/p stent, CHF, HLD, Alzeheimer's dementia Diverticulitis with abscess s/p IR drainage s/p exploratory laparotomy (08/06) with sigmoid resection, washout of intra-abdominal abscess, mobilization of the splenic flexure, creation of ostomy and mucous fistula creation with B/L ureteral stent placement by Vit D def, mild lactic acidosis and hypomagnesemia, Hypokalemia Plan renal function stable. continue with IV lasix 20 mg bid for her pleural effusions. supplement electrolytes as needed. nutritional support. Hypertension control with meds as ordered. continue to hold diovan due to recent KRIS. on PRN hydralazine for HTN reviewed renal sono: unremarkable Monitor Input/Output, daily weights monitor Vanco level. Avoid fleets enema/magnesium based laxatives. Avoid nephrotoxins/NSAIDs/ iodinated contrast (unless needed emergently) Glycemic control Further work up for as per primary team Thanks for allowing me to participate in care of your patient. Will follow patient with you. Please call if any Qs. d/w team Dr Jhon Can Office: [phone] HPI: Pt is a 86 y/o F with hx of HTN, CAD s/p stents, CHF, HLD, Alzeheimer's dementia and Diverticulitis w/abscess s/p IR drainage underwent exploratory laparotomy (08/06)with sigmoid resection, washout of intra-abdominal abscess, mobilization of the splenic flexure, creation of ostomy and mucous fistula creation with B/L ureteral stent placement by is seen in renal consultation as has decreased urine outpt in post-op period. episodes of low BP post-op, SBP 80-90 Subjective: pt looks ill. not communicating. had 1200 mL urine output yesterday. last night had urine leak and hence couldn't be documented about the urine volume Physical Examination: General Appearance: elderly female in no acute respiratory distress, ill appearing Vitals reviewed and noted as below. BP controlled HR increased Lungs: Normal respiratory rate/effort. Breath sounds bilateral decreased at bases Heart: Increased rate. s1s2 normal. No rub or gallop. Extremities: 2+ edema with anasarca Neurological: Patient is lethargic not communicative today Abdomen: Abdomen is soft. has LLQ ostomy. midline dressing and MO drains+ . : kidney or bladder not palpable. has cote Labs/imaging reviewed. Past medical history, past surgical history, family history, social history, allergy reviewed and noted as below work up: previosu imaging: normal kidneys and bladder UA: trace protein no blood Vit D <12 Mag 1.3 Urine Na 40 CTA 08/10: no PE. has b/l pleural effusions and consolidation Albumin 1.8 Objective - Vital Signs/Intake and Output Vital Signs (last 24 hours): Temp Pulse Resp BP Pulse Ox 97.9 F 125 H 18 133/92 H 100 08/13/16 06:00 08/13/16 07:34 08/13/16 06:00 08/13/16 06:00 08/13/16 06:00 Intake and Output: 08/13/16 08/13/16 06:59 18:59 Intake Total 0 Output Total 350 Balance -350 - Medications Medications: Current Medications Acetaminophen (Tylenol 650mg/20.3ml Solution Ud) 320 mg PO Q4 PRN PRN Reason: Fever >100.4 F Last Admin: 08/12/16 14:24 Dose: 320 mg Amiodarone HCl (Cordarone) 200 mg PO DAILY [facility] Aspirin (Aspirin Chewable) 81 mg PO DAILY [facility] Last Admin: 08/12/16 10:02 Dose: 81 mg Atorvastatin Calcium (Lipitor) 40 mg PO DIN [facility] Last Admin: 08/12/16 17:11 Dose: 40 mg Benzocaine/Menthol (Cepacol Sore Throat) 1 [place] MT Q2H PRN PRN Reason: Sore Throat Last Admin: 08/08/16 10:10 Dose: 1 burton Calcium Carbonate (Oscal) 500 mg PO DAILY [facility] Last Admin: 08/12/16 10:04 Dose: 500 mg Cholecalciferol (Vitamin D) 2,000 iu PO DAILY [facility] Last Admin: 08/12/16 10:04 Dose: 2,000 iu Clonidine HCl (Catapres Tts1 0.1 Mg/24 Hr) 1 patch TD Q7D@1000 [facility] Last Admin: 08/07/16 16:16 Dose: 1 patch Digoxin (Lanoxin) 0.25 mg PO DAILY@1400 [facility] Diltiazem HCl (Cardizem) 30 mg PO QID [facility] Last Admin: 08/13/16 07:34 Dose: 30 mg Donepezil HCl (Aricept) 10 mg PO HS [facility] Last Admin: 08/12/16 21:45 Dose: 10 mg Enoxaparin Sodium (Lovenox) 60 mg SC Q12 [facility] PRN Reason: Protocol Last Admin: 08/12/16 21:54 Dose: 60 mg Ferrous Sulfate (Feosol) 324 mg PO TID [facility] Last Admin: 08/12/16 17:11 Dose: 324 mg Furosemide (Lasix) 20 mg IVP ONCE [facility] Stop: 08/14/16 09:16 Hydralazine HCl (Apresoline) 10 mg IVP Q6 PRN PRN Reason: Other Last Admin: 08/10/16 00:15 Dose: 10 mg Metronidazole (Flagyl) 500 mg in 100 mls @ 100 mls/hr IVPB Q8 [facility] PRN Reason: Protocol Last Admin: 08/13/16 07:01 Dose: 100 mls/hr Ampicillin Sodium/Sulbactam Sodium (Unasyn 1 Gm-0.5 Gm) 1 gm in 100 mls @ 100 mls/hr IVPB Q6 [facility] PRN Reason: Protocol Last Admin: 08/13/16 06:59 Dose: 100 mls/hr Vancomycin HCl (Vancomycin 1gm) 1 g in 250 mls @ 167 mls/hr IVPB Q12 [facility] PRN Reason: Protocol Last Admin: 08/12/16 23:39 Dose: 167 mls/hr Dextrose/Sodium Chloride (Dextrose 5%/0.9% Ns 1000 Ml) 1,000 mls @ 50 mls/hr IV .Q20H [facility] Last Admin: 08/12/16 10:12 Dose: 50 mls/hr Metoprolol Tartrate (Lopressor) 50 mg PO BID [facility] Last Admin: 08/12/16 17:13 Dose: 50 mg Morphine Sulfate (Morphine) 0.5 mg IVP Q4H PRN PRN Reason: Pain, moderate (4-7) Last Admin: 08/13/16 07:34 Dose: 0.5 mg Ondansetron HCl (Zofran Inj) 4 mg IVP Q6 PRN PRN Reason: Nausea/Vomiting Pantoprazole Sodium (Protonix Ec Tab) 20 mg PO ACB [facility] Last Admin: 08/13/16 08:32 Dose: Not Given Potassium Phos/Sodium Phos (Neutra-Phos) 1 pkt PO BID [facility] Stop: 08/14/16 10:01 Last Admin: 08/12/16 17:10 Dose: 1 pkt - Labs Labs: 08/13/16 07:45 08/13/16 07:45 PT 15.2 Seconds (9.9-11.8) H 08/07/16 11:30 INR 1.41 (0.93-1.08) H 08/07/16 11:30 APTT 32.7 Seconds (23.7-30.8) H 08/07/16 11:30
--- NOTE | 2016-08-13 10:09 | PN ---
DATE: 08/13/2016 The patient is seen on the floor. Her vital signs are normal with a pulse of up to 125, blood pressu re normal. Urine output on the low side, a lot of drainage from both the abdominal and the flank drain. We will check for BUN in the lateral drain, although it looks like just serous fluid. Pathology is back showing no cancer. The interventional radiology reviewed from several weeks ago showing the fistula connected up to the colon and the part that I resected. So I am very comfortable with that even though the pathology did not show a fistula. She is lethargic. Does not respond very well, and is gradually getting weaker, hemoglobin down to 7. 2. She is noted to be a full code. However, I think the code status should be discussed with the family . Sony Keita MD cc: [id number] TT: 08/13/2016 10:08:33 Confirmation # [id number] Dictation # [id number] [email or web address]
[2016-08-13] MEDS ORDERED: Digoxin 500 mcg/2ml (0.5 mg/2ml) Inj IVP ONE (10:10)
--- NOTE | 2016-08-13 11:42 | PN ---
DATE: 08/13/2016 Seen and examined at the bedside. The patient is lethargic but arousable. Did not eat any breakfast this morning. No reports of any acute GI bleed. The patient's hemoglobin is at 7.2 and is pending a blood transfusion. VITAL SIGNS: Temperature is 97.9, blood pressure is 133/92, pulse 56, respirations 18, 100% room air . LABORATORY DATA: WBC 15.7, hemoglobin 7.2, hematocrit 22.1, platelets are 361. Sodium 135, K 4.3, B UN is 14, creatinine 0.6. Total bilirubin 0.3, AST 21, ALT 30, alkaline phosphatase is ____. PHYSICAL EXAMINATION: HEENT: Sclerae are anicteric. NECK: Supple. CARDIAC: S1, S2. LUNGS: With decreased breath sounds, but no rales or wheeze. ABDOMEN: With bowel sounds. Soft, mild tenderness. No rebound or guarding. Incision: Positive st aples, open to air. The colostomy has positive stool, no blood noted. The stool that appears green. She also has a MO drain on the right side and it is light serosanguineous. ASSESSMENT: Anemia, status post surgery for diverticular perforation/abscess, status post Brad p rocedure with colostomy. The patient also had fever the other day. The patient had chest CT done, r ule out pulmonary embolism, and it showed large pleural effusions; no evidence of pulmonary embolism. PLAN: She is going to get 2 units of packed RBCs. The patient is on IV antibiotics, is on aspirin, on puree diet which she is currently not taking, and IV fluids at 50 mL an hour. The patient is also on Lovenox, getting iron supplements and on PPI. Will continue to follow closely. The patient was seen and case discussed with Dr. Archuleta. Arina BRAR cc: [id number] TT: 08/13/2016 11:41:40 Confirmation # [id number] Dictation # [id number] mn
[2016-08-13] MEDS: Potassium & Sodium Phosphate PO SCH ×2 (12:17→18:29)
[2016-08-13] MEDS: Dextrose 5%/0.9% NS 1,000 ML IV SCH (12:19)
[2016-08-13] MEDS: Vancomycin 1gm in NS 250ml 1 G/250 ML BAG IVPB SCH ×2 (12:25→18:25)
[2016-08-13] MEDS: Enoxaparin 60 mg Syringe SC SCH ×3 (12:26→21:55)
[2016-08-13] MEDS: Metoprolol 1 mg/ml Inj IVP PRN ×2 (12:26→13:54)
[2016-08-13 13:03] LABS: AMYLASE 55 U/L (35-125); LIPASE 38 U/L (23-300)
--- NOTE | 2016-08-13 13:11 | PN ---
DATE: 08/13/2016 The patient did report chest pain earlier. She is currently in rapid atrial fibrillation. She has v louie poor oral intake to the extent that oral medications are not being given. PHYSICAL EXAMINATION: VITAL SIGNS: Blood pressure 156/116, heart rate 110, earlier was 120, temperature 98.3, respirations 20. HEENT: Pale conjunctivae. CHEST: Diminished breath sounds over the bases. HEART: S1, S2 irregular. EXTREMITIES: 1+ pitting edema. LABORATORIES: Today's hemoglobin and hematocrit 7.2 and 22.1. White count and platelet count are 15 .7 and 361,000. SMA-7: Sodium 135, potassium 4.3, chloride 115, CO2 21, glucose 88, BUN 14, creatin ine 0.6. Yesterday's troponin was 0.18. I did review today's EKG, which revealed atrial fibrillation with a ventricular response with a rate at 99 beats per minute, ST-T wave abnormality, consider lateral ischemia versus digitalis effect, pos sible anterior wall SC of indeterminate age. The CT angio of the chest revealed large pleural effusi on and bibasal consolidation, no evidence of pulmonary embolism. ASSESSMENT: 1. Status post exploratory laparotomy, Brad procedure for colovesical fistula. 2. Persistent atrial fibrillation. 3. Chest pain with borderline troponin elevation. 4. History of coronary stenting in April of this year. 5. Anemia. RECOMMENDATIONS: Continue IV hydralazine at 10 mg q. 6 hours p.r.n., digoxin 0.25 mg intravenously d aily, subcutaneous Lovenox at 60 mg twice a day. I recommend obtaining abdomen and pelvis CT scan. In the meantime, I will obtain serum amylase and lipase levels. Oral medications are not given becau se of the fact that patient cannot tolerate any oral intake at this time and she refuses it. Eugenio Cruz MD cc: [id number] TT: 08/13/2016 13:10:35 Confirmation # [id number] Dictation # [id number]
[2016-08-13] MEDS ORDERED: Digoxin 250 mcg (0.25 mg) Tab PO SCH (14:00)
[2016-08-13] MEDS: Digoxin 500 mcg/2ml (0.5 mg/2ml) Inj IVP SCH (14:26)
[2016-08-13] MEDS: Acetaminophen 650mg/20.3ml solution UD PO PRN (16:32)
--- NOTE | 2016-08-13 17:25 | CP.PCM.PN ---
Subjective - Date & Time of Evaluation Date of Evaluation: 08/13/16 Time of Evaluation: 15:00 - Subjective Subjective: Infectious Disease Follow Up: August 13, 2016 85 yo female sent to [facility] [place]. Keita's office after discovery of purulent drainage from left lower abdominal drain site. She has a history of hypertension, GI bleed, CAD with stents, anemia, and osteoporosis. Many of her hospitalizations last year were for GI bleed. 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 She is currently on ceftriaxone and Flagyl. This will cover most recurrences of E. coli. Taken to IR by Dr. Zaldivar on Friday. 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 IR drain is still showing fecal material. E. coli in cultures of wound site. Yeast in urine cultures. Tre-colectomy yesteday with monitoring post surgery in MICU. Patient transferred to medical floor. Low urine output. Noted events of previous night where patient was briefly unresponsive and finally awoke after several attempts with deep chest rubs. Patient was lethargic this morning according to notes. Today the patient had bouts of tachycardia up to 200 bpm. Reported to me by resident that the patient had fevers up to 101.2 F a few days ago. I had suggested Vancomycin use based on that information. I do not see any recording of fevers in the chart at this point. Reports are of tachycardia. The patient did have a CT scan that showed bilateral pleural effusions which was reported to me by the medical device. Vancomycin added for potential hospital acquired pneumonia. The patient is more stable. She remains on Cardizem but PO now. Objective - Vital Signs/Intake and Output Vital Signs (last 24 hours): Temp Pulse Resp BP Pulse Ox 98.3 F 84 20 158/89 H 100 08/13/16 17:13 08/13/16 17:13 08/13/16 17:13 08/13/16 17:13 08/13/16 06:00 Intake and Output: 08/13/16 08/13/16 06:59 18:59 Intake Total 0 890 Output Total 350 250 Balance -350 640 - Medications Medications: Current Medications Acetaminophen (Tylenol 650mg/20.3ml Solution Ud) 320 mg PO Q4 PRN PRN Reason: Fever >100.4 F Last Admin: 08/13/16 16:32 Dose: 320 mg Amiodarone HCl (Cordarone) 200 mg PO DAILY [facility] Last Admin: 08/13/16 12:22 Dose: Not Given Aspirin (Aspirin Chewable) 81 mg PO DAILY [facility] Last Admin: 08/13/16 13:53 Dose: 81 mg Atorvastatin Calcium (Lipitor) 40 mg PO DIN [facility] Last Admin: 08/12/16 17:11 Dose: 40 mg Benzocaine/Menthol (Cepacol Sore Throat) 1 [place] MT Q2H PRN PRN Reason: Sore Throat Last Admin: 08/08/16 10:10 Dose: 1 burton Calcium Carbonate (Oscal) 500 mg PO DAILY [facility] Last Admin: 08/13/16 13:53 Dose: 500 mg Cholecalciferol (Vitamin D) 2,000 iu PO DAILY [facility] Last Admin: 08/13/16 13:53 Dose: 2,000 iu Clonidine HCl (Catapres Tts1 0.1 Mg/24 Hr) 1 patch TD Q7D@1000 [facility] Last Admin: 08/07/16 16:16 Dose: 1 patch Digoxin (Lanoxin) 0.25 mg IVP 1400 [facility] Last Admin: 08/13/16 14:26 Dose: Not Given Diltiazem HCl (Cardizem) 60 mg PO QID [facility] Last Admin: 08/13/16 14:25 Dose: Not Given Donepezil HCl (Aricept) 10 mg PO HS [facility] Last Admin: 08/12/16 21:45 Dose: 10 mg Enoxaparin Sodium (Lovenox) 60 mg SC Q12 [facility] PRN Reason: Protocol Last Admin: 08/13/16 13:53 Dose: 60 mg Ferrous Sulfate (Feosol) 324 mg PO TID [facility] Last Admin: 08/13/16 13:54 Dose: 324 mg Furosemide (Lasix) 20 mg IVP ONCE [facility] Stop: 08/14/16 09:16 Last Admin: 08/13/16 15:15 Dose: 20 mg Hydralazine HCl (Apresoline) 10 mg IVP Q6 PRN PRN Reason: Other Last Admin: 08/10/16 00:15 Dose: 10 mg Metronidazole (Flagyl) 500 mg in 100 mls @ 100 mls/hr IVPB Q8 JENNIFER PRN Reason: Protocol Last Admin: 08/13/16 14:11 Dose: 100 mls/hr Ampicillin Sodium/Sulbactam Sodium (Unasyn 1 Gm-0.5 Gm) 1 gm in 100 mls @ 100 mls/hr IVPB Q6 JENNIFER PRN Reason: Protocol Last Admin: 08/13/16 14:11 Dose: 100 mls/hr Vancomycin HCl (Vancomycin 1gm) 1 g in 250 mls @ 167 mls/hr IVPB Q12 JENNIFER PRN Reason: Protocol Last Admin: 08/12/16 23:39 Dose: 167 mls/hr Dextrose/Sodium Chloride (Dextrose 5%/0.9% Ns 1000 Ml) 1,000 mls @ 50 mls/hr IV .Q20H [facility] Last Admin: 08/13/16 12:19 Dose: Not Given Metoprolol Tartrate (Lopressor) 50 mg PO BID [facility] Last Admin: 08/13/16 12:18 Dose: Not Given Metoprolol Tartrate (Lopressor) 5 mg IVP Q6 PRN PRN Reason: Heart rate Last Admin: 08/13/16 13:54 Dose: 5 mg Morphine Sulfate (Morphine) 0.5 mg IVP Q4H PRN PRN Reason: Pain, moderate (4-7) Last Admin: 08/13/16 07:34 Dose: 0.5 mg Ondansetron HCl (Zofran Inj) 4 mg IVP Q6 PRN PRN Reason: Nausea/Vomiting Pantoprazole Sodium (Protonix Ec Tab) 20 mg PO ACB [facility] Last Admin: 08/13/16 08:32 Dose: Not Given Potassium Phos/Sodium Phos (Neutra-Phos) 1 pkt PO BID [facility] Stop: 08/14/16 10:01 Last Admin: 08/13/16 12:17 Dose: Not Given - Labs Labs: 08/13/16 07:45 08/13/16 07:45 PT 15.2 Seconds (9.9-11.8) H 08/07/16 11:30 INR 1.41 (0.93-1.08) H 08/07/16 11:30 APTT 32.7 Seconds (23.7-30.8) H 08/07/16 11:30 - Constitutional Appears: Non-toxic, No Acute Distress, Chronically Ill - Head Exam Head Exam: ATRAUMATIC, NORMOCEPHALIC - Eye Exam Eye Exam: EOMI, PERRL Pupil Exam: NORMAL ACCOMODATION, PERRL - ENT Exam ENT Exam: Mucous Membranes Moist, Normal External Ear Exam, TM's Normal Bilaterally - Neck Exam Neck Exam: Full ROM, Normal Inspection - Respiratory Exam Respiratory Exam: Clear to Ausculation Bilateral, NORMAL BREATHING PATTERN. absent: Rales, Rhonchi, Wheezes - Cardiovascular Exam Cardiovascular Exam: REGULAR RHYTHM, RRR, +S1, +S2 - GI/Abdominal Exam GI & Abdominal Exam: Soft, Normal Bowel Sounds. absent: Distended, Tenderness Additional comments: colostomy in place. s/p sigmoidectomy. - Extremities Exam Extremities Exam: Full ROM, Normal Inspection - Neurological Exam Neurological Exam: Alert, Awake, CN II-XII Intact, Oriented x3 - Psychiatric Exam Psychiatric exam: Normal Affect, Normal Mood - Skin Skin Exam: Intact, Normal Color Assessment and Plan - Assessment and Plan (Free Text) Assessment: 86 yo female with intra-abdominal abscess presenting with drainage of pus. Taken by IR for drain placement. Spoke with Dr. Zaldivar in detail regarding case. He fears formation of fistula at this time. On Rocephin and Metronidazole. Last hospitalization showed VRE and E. coli growth. Supportive care with low tolerance for switching antibiotics to one such as meropenem. Current culture is showing E. coli that is sensitive to Rocephin and Ancef. Continuing on Ancef. On Diflucan to cover yeast in the urine. New cultures taken that have been negative to date. Sigmoid colectomy during exploratory laparotomy. Continue Ancef. Colostomy in place. On medical floor. Vancomycin IV continued. Repeat culture on 08/10/2016 negative so far. So far no further tachycardia episodes for the past 36-48 hours. Supportive care. Thank you for allowing me to participate in the care of the patient, we will follow with you.
--- NOTE | 2016-08-14 01:34 | CARD ---
APPROVED REPORT EKG Measurement Heart [id number] <Conclusion> Atrial fibrillation with premature ventricular or aberrantly conducted complexes Possible Anterior infarct, age undetermined ST & T wave abnormality, consider lateral ischemia or digitalis effect Abnormal ECG
--- NOTE | 2016-08-14 03:34 | PN ---
DATE: 08/13/2016 ADDENDUM This is an addendum to the GI progress report dictated by Arina Guerrero NP. The patient's hemoglobin now came down to 7.2. There is no obvious bleeding source noticed. The colostomy drain is only brown stools. The patient is tolerating the pureed food. Albumin remains low at 1.8, p.o. intake still remains poor. The reasonable thing is to consider the calorie count. The patient is on prophylactic PPI. The patient's MCV is 92. Would continue to closely follow up with the hemoglobin and hematocrit. Less likely gastrointestinal bleeding as an etiology. The low drop in blood count could be multifactorial etiology. We will continue to closely follow up her care. Thank you very much for allowing us to participate in the care of the patient. Long Archuleta MD cc: [id number] TT: 08/14/2016 03:33:10 Confirmation # [id number] Dictation # [id number] MTDD
[2016-08-14] MEDS: metroNIDAZOLE IV 500 mg/100 ml 500 MG/100 ML BAG IVPB SCH ×3 (05:38→22:19)
[2016-08-14 06:44] LABS: HEMATOCRIT 27.1 % (36.0-48.0); MEAN CELL VOLUME 89.4 fL (80.0-105.0); MEAN CORPUSCULAR HEMOGLOBIN 30.7 pg (25.0-35.0); MEAN CORPUSCULAR HGB CONC 34.3 g/dl (31.0-37.0); MEAN PLATELET VOLUME 9.4 fl (7.0-11.0); PLATELET COUNT 268 10^3/uL (120.0-450.0); RED CELL DISTRIBUTION WIDTH 18.4 % (11.5-14.5); WHITE BLOOD COUNT 20.1 10^3/ul (4.5-11.0)
[2016-08-14 06:52] LABS: ADD MANUAL DIFF? YES
--- NOTE | 2016-08-14 07:07 | CP.PCM.PN ---
Subjective - Date & Time of Evaluation Date of Evaluation: 08/14/16 Time of Evaluation: 07:00 - Subjective Subjective: Medicine progress note for Dr Diaz and Dr Zuniga service. No acute events overnight. HR on tele ranging from 70s-115s, still in afib. Afebrile. Patient eating with help, more alert and verbal. Denies cp, sob, nausea or vomiting. States she's not as lethargic and tired as yesterday. Objective - Vital Signs/Intake and Output Vital Signs (last 24 hours): Temp Pulse Resp BP Pulse Ox 97.5 F L 90 18 136/76 96 08/14/16 06:00 08/14/16 06:00 08/14/16 06:00 08/14/16 06:00 08/14/16 06:00 Intake and Output: 08/14/16 08/14/16 06:59 18:59 Intake Total 565 Output Total 550 Balance 15 - Medications Medications: Current Medications Acetaminophen (Tylenol 650mg/20.3ml Solution Ud) 320 mg PO Q4 PRN PRN Reason: Fever >100.4 F Last Admin: 08/13/16 16:32 Dose: 320 mg Amiodarone HCl (Cordarone) 200 mg PO DAILY [facility] Last Admin: 08/13/16 12:22 Dose: Not Given Aspirin (Aspirin Chewable) 81 mg PO DAILY [facility] Last Admin: 08/13/16 13:53 Dose: 81 mg Atorvastatin Calcium (Lipitor) 40 mg PO DIN [facility] Last Admin: 08/13/16 18:29 Dose: 40 mg Benzocaine/Menthol (Cepacol Sore Throat) 1 [place]ton MT Q2H PRN PRN Reason: Sore Throat Last Admin: 08/08/16 10:10 Dose: 1 burton Calcium Carbonate (Oscal) 500 mg PO DAILY [facility] Last Admin: 08/13/16 13:53 Dose: 500 mg Cholecalciferol (Vitamin D) 2,000 iu PO DAILY [facility] Last Admin: 08/13/16 13:53 Dose: 2,000 iu Clonidine HCl (Catapres Tts1 0.1 Mg/24 Hr) 1 patch TD Q7D@1000 [facility] Last Admin: 08/07/16 16:16 Dose: 1 patch Digoxin (Lanoxin) 0.25 mg IVP 1400 [facility] Last Admin: 08/13/16 14:26 Dose: Not Given Diltiazem HCl (Cardizem) 60 mg PO QID [facility] Last Admin: 08/13/16 21:53 Dose: 60 mg Donepezil HCl (Aricept) 10 mg PO HS [facility] Last Admin: 08/13/16 21:53 Dose: 10 mg Enoxaparin Sodium (Lovenox) 60 mg SC Q12 JENNIFER PRN Reason: Protocol Last Admin: 08/13/16 21:55 Dose: 60 mg Ferrous Sulfate (Feosol) 324 mg PO TID [facility] Last Admin: 08/13/16 18:29 Dose: 324 mg Furosemide (Lasix) 20 mg IVP ONCE [facility] Stop: 08/14/16 09:16 Last Admin: 08/13/16 21:56 Dose: 20 mg Hydralazine HCl (Apresoline) 10 mg IVP Q6 PRN PRN Reason: Other Last Admin: 08/10/16 00:15 Dose: 10 mg Metronidazole (Flagyl) 500 mg in 100 mls @ 100 mls/hr IVPB Q8 JENNIFER PRN Reason: Protocol Last Admin: 08/14/16 05:38 Dose: 100 mls/hr Ampicillin Sodium/Sulbactam Sodium (Unasyn 1 Gm-0.5 Gm) 1 gm in 100 mls @ 100 mls/hr IVPB Q6 JENNIFER PRN Reason: Protocol Last Admin: 08/14/16 05:39 Dose: 100 mls/hr Vancomycin HCl (Vancomycin 1gm) 1 g in 250 mls @ 167 mls/hr IVPB Q12 JENNIFER PRN Reason: Protocol Last Admin: 08/13/16 18:25 Dose: Not Given Dextrose/Sodium Chloride (Dextrose 5%/0.9% Ns 1000 Ml) 1,000 mls @ 50 mls/hr IV .Q20H [facility] Last Admin: 08/13/16 12:19 Dose: Not Given Metoprolol Tartrate (Lopressor) 50 mg PO BID [facility] Last Admin: 08/13/16 12:18 Dose: Not Given Metoprolol Tartrate (Lopressor) 5 mg IVP Q6 PRN PRN Reason: Heart rate Last Admin: 08/13/16 13:54 Dose: 5 mg Morphine Sulfate (Morphine) 0.5 mg IVP Q4H PRN PRN Reason: Pain, moderate (4-7) Last Admin: 08/13/16 07:34 Dose: 0.5 mg Ondansetron HCl (Zofran Inj) 4 mg IVP Q6 PRN PRN Reason: Nausea/Vomiting Pantoprazole Sodium (Protonix Ec Tab) 20 mg PO ACB JENNIFER Last Admin: 08/13/16 08:32 Dose: Not Given Potassium Phos/Sodium Phos (Neutra-Phos) 1 pkt PO BID JENNIFER Stop: 08/14/16 10:01 Last Admin: 08/13/16 18:29 Dose: 1 pkt - Labs Labs: 08/14/16 06:01 08/13/16 07:45 PT 15.2 Seconds (9.9-11.8) H 08/07/16 11:30 INR 1.41 (0.93-1.08) H 08/07/16 11:30 APTT 32.7 Seconds (23.7-30.8) H 08/07/16 11:30 - Constitutional Appears: No Acute Distress, Cachectic, Chronically Ill - Head Exam Head Exam: ATRAUMATIC, NORMAL INSPECTION, NORMOCEPHALIC - Eye Exam Eye Exam: EOMI, Normal appearance, PERRL. absent: Scleral icterus - ENT Exam ENT Exam: Mucous Membranes Moist - Neck Exam Neck Exam: Normal Inspection - Respiratory Exam Respiratory Exam: Clear to Ausculation Bilateral, NORMAL BREATHING PATTERN. absent: Rales, Rhonchi, Wheezes, Respiratory Distress, Stridor - Cardiovascular Exam Cardiovascular Exam: Irregular Rhythm, +S1, +S2, Murmur. absent: Diastolic murmur, Gallop, JVD, Rubs - GI/Abdominal Exam GI & Abdominal Exam: Soft, Normal Bowel Sounds. absent: Distended, Firm, Guarding, Rigid, Tenderness Additional comments: ostomy with stool, pedro luis x2 draining serosanguinous fluid. 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 Oliguric post op, which has now resolved. Developed RVR afib 2 days post op, was on Cardizem drip, which was switched to po Cardizem, once the rate was controlled. Patient is now stable, on the 2nd floor, however leukocytosis trending up. Plan: 1) Symptomatic acute on chronic anemia likely dilutional versus post surgical - Patient reports feeling beter today. - s/p 2 units of prbc - Hgb of 9.3 today - No active bleeding - will continue to monitor. 2) New onset RVR Afib - current HR in the 70s-100s - will continue cardizem po 60 mg qid - continue po Lopressor 50 mg bid - Continue amiodorone 200 mg daily. - CHADS2 score of 3 for h/o chf, htn and age>75. [id number] score of 5 for age, sex, chf, htn. - Continue therapeutic lovenox 60 q12. 3) h/o CAD with stents, NSTEMI this admission. - on therapeutic lovenox. - Continue Lipitor, Lopressor, and asa. 4) HAP- - repeat bcx no growth - Holding vanco, repeat vanco through - on unasyn - ID on the case 5) Diverticulitis with intra-abdominal abscess and cutaneous fistula s/p IR drain, s/p exp lap with sigmoid resection, colostomy mucous fistula, and washout. - wound care as per surgery - OOBTC - ID and surgery following. 6) Hypokalemia/hypomag/hypophos-resolved, 7)KRIS- likely 2nd to ATN- - creat stable and uo improved - will continue to monitor. 8) Malnutrition with anasarca - Albumin still very low - will give iv albumin - will continue puree diet, and ensure. - Feed with assistance - calorie count. 9) h/o HTN-continue clonidine patch, Lopressor and Hydralazine prn for htn. 10) Transaminitis-resolved 11) Vitamin D deficiency - po vitamin d 2000 12) Dementia- continue aricept 13) DVT prophylaxis: Lovenox and protonix. 14) Dispo- BRITTANY when medically optimized. Patient need to get out of bed to chair today. Patient, seen, examined, and case discussed with Dr Zuniga.
[2016-08-14 07:08] LABS: ALB/GLOB RATIO 0.7 (1.1-1.8); ALKALINE PHOSPHATASE 132 U/L (38-133); ALT/SGPT 30 U/L (7-56); AST/SGOT 23 U/L (15-39); BILIRUBIN,TOTAL 0.9 mg/dL (0.2-1.3); BLOOD UREA NITROGEN 17 mg/dL (7-21); CALCIUM 7.2 mg/dL (8.4-10.5); CARBON DIOXIDE 20 mmol/L (21-33); CHLORIDE 112 mmol/L (98-107); GFR AFRICAN-AMERICAN > 60; GLUCOSE,RANDOM 82 mg/dL (70-110); MAGNESIUM 1.7 mg/dL (1.7-2.2); PHOSPHOROUS 2.9 mg/dL (2.5-4.5); SODIUM 136 mmol/L (132-148); TOTAL PROTEIN 4.3 g/dL (5.8-8.3)
[2016-08-14] MEDS: Pantoprazole 20 mg EC Tab PO SCH (08:33)
[2016-08-14 09:39] LABS: NEUTROPHIL 86 % (50.0-70.0); POLYCHROMASIA SLIGHT
[2016-08-14 09:40] LABS: ANISOCYTOSIS SLIGHT; HYPOCHROMIA 1+
--- NOTE | 2016-08-14 10:42 | CP.PCM.PN ---
Subjective - Date & Time of Evaluation Date of Evaluation: 08/14/16 Time of Evaluation: 08:00 - Subjective Subjective: General Surgery Progress Note for Dr. Keita Pt was seen and examined at bedside. No acute complaints at this time. No acute or adverse events overnight as per nursing staff. Pt states she is feeling more like herself today and is without abdominal pains. She is tolerating PO intake and ambulating with PT. Pt has good output from ostomy. Pt denied fever, chills , n/v. Lozano is in place. Objective - Vital Signs/Intake and Output Vital Signs (last 24 hours): Temp Pulse Resp BP Pulse Ox 97.5 F L 90 18 136/76 96 08/14/16 06:00 08/14/16 06:00 08/14/16 06:00 08/14/16 06:00 08/14/16 06:00 Intake and Output: 08/14/16 08/14/16 06:59 18:59 Intake Total 565 Output Total 550 Balance 15 - Medications Medications: Current Medications Acetaminophen (Tylenol 650mg/20.3ml Solution Ud) 320 mg PO Q4 PRN PRN Reason: Fever >100.4 F Last Admin: 08/13/16 16:32 Dose: 320 mg Amiodarone HCl (Cordarone) 200 mg PO DAILY [facility] Last Admin: 08/13/16 12:22 Dose: Not Given Aspirin (Aspirin Chewable) 81 mg PO DAILY [facility] Last Admin: 08/13/16 13:53 Dose: 81 mg Atorvastatin Calcium (Lipitor) 40 mg PO DIN [facility] Last Admin: 08/13/16 18:29 Dose: 40 mg Benzocaine/Menthol (Cepacol Sore Throat) 1 burton MT Q2H PRN PRN Reason: Sore Throat Last Admin: 08/08/16 10:10 Dose: 1 burton Calcium Carbonate (Oscal) 500 mg PO DAILY [facility] Last Admin: 08/13/16 13:53 Dose: 500 mg Cholecalciferol (Vitamin D) 2,000 iu PO DAILY [facility] Last Admin: 08/13/16 13:53 Dose: 2,000 iu Clonidine HCl (Catapres Tts1 0.1 Mg/24 Hr) 1 patch TD Q7D@1000 [facility] Last Admin: 08/07/16 16:16 Dose: 1 patch Digoxin (Lanoxin) 0.25 mg IVP 1400 [facility] Last Admin: 08/13/16 14:26 Dose: Not Given Diltiazem HCl (Cardizem) 60 mg PO QID [facility] Last Admin: 08/13/16 21:53 Dose: 60 mg Donepezil HCl (Aricept) 10 mg PO HS [facility] Last Admin: 08/13/16 21:53 Dose: 10 mg Enoxaparin Sodium (Lovenox) 60 mg SC Q12 JENNIFER PRN Reason: Protocol Last Admin: 08/13/16 21:55 Dose: 60 mg Ferrous Sulfate (Feosol) 324 mg PO TID [facility] Last Admin: 08/13/16 18:29 Dose: 324 mg Hydralazine HCl (Apresoline) 10 mg IVP Q6 PRN PRN Reason: Other Last Admin: 08/10/16 00:15 Dose: 10 mg Metronidazole (Flagyl) 500 mg in 100 mls @ 100 mls/hr IVPB Q8 JENNIFER PRN Reason: Protocol Last Admin: 08/14/16 05:38 Dose: 100 mls/hr Ampicillin Sodium/Sulbactam Sodium (Unasyn 1 Gm-0.5 Gm) 1 gm in 100 mls @ 100 mls/hr IVPB Q6 JENNIFER PRN Reason: Protocol Last Admin: 08/14/16 05:39 Dose: 100 mls/hr Vancomycin HCl (Vancomycin 1gm) 1 g in 250 mls @ 167 mls/hr IVPB Q12 JENNIFER PRN Reason: Protocol Last Admin: 08/13/16 18:25 Dose: Not Given Dextrose/Sodium Chloride (Dextrose 5%/0.9% Ns 1000 Ml) 1,000 mls @ 50 mls/hr IV .Q20H [facility] Last Admin: 08/13/16 12:19 Dose: Not Given Metoprolol Tartrate (Lopressor) 50 mg PO BID [facility] Last Admin: 08/13/16 12:18 Dose: Not Given Metoprolol Tartrate (Lopressor) 5 mg IVP Q6 PRN PRN Reason: Heart rate Last Admin: 08/13/16 13:54 Dose: 5 mg Morphine Sulfate (Morphine) 0.5 mg IVP Q4H PRN PRN Reason: Pain, moderate (4-7) Last Admin: 08/13/16 07:34 Dose: 0.5 mg Ondansetron HCl (Zofran Inj) 4 mg IVP Q6 PRN PRN Reason: Nausea/Vomiting Pantoprazole Sodium (Protonix Ec Tab) 20 mg PO ACB JENNIFER Last Admin: 08/14/16 08:33 Dose: 20 mg - Labs Labs: 08/14/16 06:01 08/14/16 06:01 PT 15.2 Seconds (9.9-11.8) H 08/07/16 11:30 INR 1.41 (0.93-1.08) H 08/07/16 11:30 APTT 32.7 Seconds (23.7-30.8) H 08/07/16 11:30 - Constitutional Appears: Well, No Acute Distress - Head Exam Head Exam: ATRAUMATIC, NORMAL INSPECTION, NORMOCEPHALIC - Eye Exam Eye Exam: EOMI, Normal appearance, PERRL Pupil Exam: NORMAL ACCOMODATION, PERRL - ENT Exam ENT Exam: Mucous Membranes Moist, Normal Exam - Neck Exam Neck Exam: Full ROM, Normal Inspection. absent: Lymphadenopathy - Respiratory Exam Respiratory Exam: Clear to Ausculation Bilateral, NORMAL BREATHING PATTERN - Cardiovascular Exam Cardiovascular Exam: REGULAR RHYTHM, +S1, +S2. absent: Murmur - GI/Abdominal Exam GI & Abdominal Exam: Soft, Normal Bowel Sounds. absent: Tenderness Additional comments: abdominal dressing CDI, Fortino drain now draining serosanguinous fluid good ostomy output semiformed stool - Extremities Exam Extremities Exam: Joint Swelling, Pedal Edema Additional comments: UE swelling +2 - Neurological Exam Neurological Exam: Alert, Awake, CN II-XII Intact, Oriented x3 - Psychiatric Exam Psychiatric exam: Normal Affect, Normal Mood - Skin Skin Exam: Dry, Intact, Normal Color, Warm Assessment and Plan - Assessment and Plan (Free Text) Assessment: 86 F s/p sigmoid colon resection and colostomy POD#8 - tolerating soft diet, adat - aspiration precautions, CXR: b/l low lobe infiltration, continue abx as per ID - monitor for bowel function, currently has good semi-formed stool in ostomy - monitor fortino drain with sersanguinous fluid, fu labs - Encourage ambulation OOB with PT - Medical management as per primary team Seen reviewed and discussed with attending Markus Allison PGY1
[2016-08-14] MEDS: Enoxaparin 60 mg Syringe SC SCH ×2 (10:57→22:19)
[2016-08-14] MEDS: Potassium & Sodium Phosphate PO SCH (10:58)
--- NOTE | 2016-08-14 12:59 | CP.PCM.PN ---
<MathewFranck - Last Filed: 08/14/16 12:56> Subjective - Date & Time of Evaluation Date of Evaluation: 08/14/16 Time of Evaluation: 12:56 - Subjective Subjective: GI for Dr. Archuleta Pt s&eElroy RODRIGUEZ. Denies F/C/N/V/CP/SOB. Tolerating PO. Ostomy has brown stool. Pt c/o fatigue. Objective - Vital Signs/Intake and Output Vital Signs (last 24 hours): Temp Pulse Resp BP Pulse Ox 97.5 F L 102 H 18 136/76 96 08/14/16 06:00 08/14/16 10:58 08/14/16 06:00 08/14/16 10:58 08/14/16 06:00 Intake and Output: 08/14/16 08/14/16 06:59 18:59 Intake Total 565 Output Total 550 Balance 15 - Medications Medications: Current Medications Acetaminophen (Tylenol 650mg/20.3ml Solution Ud) 320 mg PO Q4 PRN PRN Reason: Fever >100.4 F Last Admin: 08/13/16 16:32 Dose: 320 mg Amiodarone HCl (Cordarone) 200 mg PO DAILY [facility] Last Admin: 08/14/16 10:58 Dose: 200 mg Aspirin (Aspirin Chewable) 81 mg PO DAILY [facility] Last Admin: 08/14/16 10:58 Dose: 81 mg Atorvastatin Calcium (Lipitor) 40 mg PO DIN [facility] Last Admin: 08/13/16 18:29 Dose: 40 mg Benzocaine/Menthol (Cepacol Sore Throat) 1 [place] MT Q2H PRN PRN Reason: Sore Throat Last Admin: 08/08/16 10:10 Dose: 1 burton Calcium Carbonate (Oscal) 500 mg PO DAILY [facility] Last Admin: 08/14/16 10:58 Dose: 500 mg Cholecalciferol (Vitamin D) 2,000 iu PO DAILY [facility] Last Admin: 08/14/16 10:58 Dose: 2,000 iu Clonidine HCl (Catapres Tts1 0.1 Mg/24 Hr) 1 patch TD Q7D@1000 [facility] Last Admin: 08/07/16 16:16 Dose: 1 patch Digoxin (Lanoxin) 0.25 mg IVP 1400 [facility] Last Admin: 08/13/16 14:26 Dose: Not Given Diltiazem HCl (Cardizem) 60 mg PO QID [facility] Last Admin: 08/14/16 10:57 Dose: 60 mg Donepezil HCl (Aricept) 10 mg PO HS [facility] Last Admin: 08/13/16 21:53 Dose: 10 mg Enoxaparin Sodium (Lovenox) 60 mg SC Q12 [facility] PRN Reason: Protocol Last Admin: 08/14/16 10:57 Dose: 60 mg Ferrous Sulfate (Feosol) 324 mg PO TID [facility] Last Admin: 08/14/16 10:58 Dose: 324 mg Hydralazine HCl (Apresoline) 10 mg IVP Q6 PRN PRN Reason: Other Last Admin: 08/10/16 00:15 Dose: 10 mg Metronidazole (Flagyl) 500 mg in 100 mls @ 100 mls/hr IVPB Q8 JENN[facility]ER PRN Reason: Protocol Last Admin: 08/14/16 05:38 Dose: 100 mls/hr Ampicillin Sodium/Sulbactam Sodium (Unasyn 1 Gm-0.5 Gm) 1 gm in 100 mls @ 100 mls/hr IVPB Q6 [facility]ENN[facility]ER PRN Reason: Protocol Last Admin: 08/14/16 11:00 Dose: 100 mls/hr Vancomycin HCl (Vancomycin 1gm) 1 g in 250 mls @ 167 mls/hr IVPB Q12 [facility] PRN Reason: Protocol Last Admin: 08/13/16 18:25 Dose: Not Given Dextrose/Sodium Chloride (Dextrose 5%/0.9% Ns 1000 Ml) 1,000 mls @ 50 mls/hr IV .Q20H [facility] Last Admin: 08/13/16 12:19 Dose: Not Given Albumin Human (Albumin Human 5% (12.5 Gm/250 Ml)) 250 mls @ 62.5 mls/hr IV ONCE ONE Stop: 08/14/16 15:26 Metoprolol Tartrate (Lopressor) 50 mg PO BID [facility] Last Admin: 08/13/16 12:18 Dose: Not Given Metoprolol Tartrate (Lopressor) 5 mg IVP Q6 PRN PRN Reason: Heart rate Last Admin: 08/13/16 13:54 Dose: 5 mg Morphine Sulfate (Morphine) 0.5 mg IVP Q4H PRN PRN Reason: Pain, moderate (4-7) Last Admin: 08/13/16 07:34 Dose: 0.5 mg Ondansetron HCl (Zofran Inj) 4 mg IVP Q6 PRN PRN Reason: Nausea/Vomiting Pantoprazole Sodium (Protonix Ec Tab) 20 mg PO ACB [facility] Last Admin: 08/14/16 08:33 Dose: 20 mg - Labs Labs: 08/14/16 06:01 08/14/16 06:01 PT 15.2 Seconds (9.9-11.8) H 08/07/16 11:30 INR 1.41 (0.93-1.08) H 08/07/16 11:30 APTT 32.7 Seconds (23.7-30.8) H 08/07/16 11:30 - Constitutional Appears: No Acute Distress - Head Exam Head Exam: ATRAUMATIC, NORMAL INSPECTION, NORMOCEPHALIC - Eye Exam Eye Exam: EOMI, Normal appearance, PERRL Pupil Exam: NORMAL ACCOMODATION, PERRL - ENT Exam ENT Exam: Mucous Membranes Moist, Normal Exam - Neck Exam Neck Exam: Full ROM, Normal Inspection. absent: Lymphadenopathy - Respiratory Exam Respiratory Exam: Clear to Ausculation Bilateral, NORMAL BREATHING PATTERN - Cardiovascular Exam Cardiovascular Exam: REGULAR RHYTHM, +S1, +S2. absent: Murmur - GI/Abdominal Exam GI & Abdominal Exam: Soft, Normal Bowel Sounds. absent: Distended, Firm, Guarding, Rigid, Tenderness Additional comments: MO ion place: ss output. full. Ostomy brown semi formed output. - Exam Exam: NORMAL INSPECTION - Extremities Exam Extremities Exam: Pedal Edema. absent: Full ROM, Normal Inspection - Back Exam Back Exam: NORMAL INSPECTION - Neurological Exam Neurological Exam: Alert, Awake, CN II-XII Intact, Oriented x3 - Psychiatric Exam Psychiatric exam: Normal Affect, Normal Mood - Skin Skin Exam: Dry, Intact, Normal Color, Warm Assessment and Plan - Assessment and Plan (Free Text) Assessment: 86F Intra-abd abscess s/p sigmoid colon resection and colostomy ; POD#8 CXR: b/l low lobe infiltration Leukocytosis: trending up. Plan: - soft diet - Aspiration precaution - Encourage out of bed to chair with PT - Monitor drain outputs - Medical management. - ABX per ID - Will DW Dr. Archuleta <Long Archuleta V - Last Filed: 09/27/16 13:57> Objective - Vital Signs/Intake and Output Vital Signs (last 24 hours): Temp Pulse Resp BP Pulse Ox 95 F L 42 L 36 H 95/57 L 96 08/17/16 12:00 08/17/16 20:00 08/17/16 20:00 08/17/16 19:00 08/17/16 20:30 - Labs Labs: 08/17/16 05:00 08/17/16 05:00 PT 12.3 Seconds (9.9-11.8) H 08/15/16 14:50 INR 1.14 (0.93-1.08) H 08/15/16 14:50 APTT 34.8 Seconds (23.7-30.8) H 08/15/16 14:50 Assessment and Plan - Assessment and Plan (Free Text) Assessment: Addendum to the GI progress note of Dr. Carmona. Seen, examined, and chart reviewed. Continue current care, agree with the planned as discussed above. Monitor H/H,
--- NOTE | 2016-08-14 13:20 | CP.PCM.PN ---
Subjective - Date & Time of Evaluation Date of Evaluation: 08/14/16 Time of Evaluation: 12:15 - Subjective Subjective: Infectious Disease Follow Up: August 14, 2016 85 yo female sent to [facility] from Dr. Keita's office after discovery of purulent drainage from left lower abdominal drain site. She has a history of hypertension, GI bleed, CAD with stents, anemia, and osteoporosis. Many of her hospitalizations last year were for GI bleed. 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 She is currently on ceftriaxone and Flagyl. This will cover most recurrences of E. coli. Taken to IR by Dr. Zaldivar on Friday. 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 IR drain is still showing fecal material. E. coli in cultures of wound site. Yeast in urine cultures. Tre-colectomy yesteday with monitoring post surgery in MICU. Patient transferred to medical floor. Low urine output. Noted events of previous night where patient was briefly unresponsive and finally awoke after several attempts with deep chest rubs. Patient was lethargic this morning according to notes. Today the patient had bouts of tachycardia up to 200 bpm. Reported to me by resident that the patient had fevers up to 101.2 F a few days ago. I had suggested Vancomycin use based on that information. I do not see any recording of fevers in the chart at this point. Reports are of tachycardia. The patient did have a CT scan that showed bilateral pleural effusions which was reported to me by the nurses medical assistants phlebotomists. Vancomycin added for potential hospital acquired pneumonia. The patient is more stable. She remains on Cardizem but PO now. Overall, the patient has improved. She is more active and states that she feels better now. Objective - Vital Signs/Intake and Output Vital Signs (last 24 hours): Temp Pulse Resp BP Pulse Ox 97.5 F L 102 H 18 136/76 96 08/14/16 06:00 08/14/16 10:58 08/14/16 06:00 08/14/16 10:58 08/14/16 06:00 Intake and Output: 08/14/16 08/14/16 06:59 18:59 Intake Total 565 Output Total 550 Balance 15 - Medications Medications: Current Medications Acetaminophen (Tylenol 650mg/20.3ml Solution Ud) 320 mg PO Q4 PRN PRN Reason: Fever >100.4 F Last Admin: 08/13/16 16:32 Dose: 320 mg Amiodarone HCl (Cordarone) 200 mg PO DAILY [facility] Last Admin: 08/14/16 10:58 Dose: 200 mg Aspirin (Aspirin Chewable) 81 mg PO DAILY [facility] Last Admin: 08/14/16 10:58 Dose: 81 mg Atorvastatin Calcium (Lipitor) 40 mg PO DIN [facility] Last Admin: 08/13/16 18:29 Dose: 40 mg Benzocaine/Menthol (Cepacol Sore Throat) 1 [place] MT Q2H PRN PRN Reason: Sore Throat Last Admin: 08/08/16 10:10 Dose: 1 burton Calcium Carbonate (Oscal) 500 mg PO DAILY [facility] Last Admin: 08/14/16 10:58 Dose: 500 mg Cholecalciferol (Vitamin D) 2,000 iu PO DAILY [facility] Last Admin: 08/14/16 10:58 Dose: 2,000 iu Clonidine HCl (Catapres Tts1 0.1 Mg/24 Hr) 1 patch TD Q7D@1000 [facility] Last Admin: 08/07/16 16:16 Dose: 1 patch Digoxin (Lanoxin) 0.25 mg IVP 1400 [facility] Last Admin: 08/13/16 14:26 Dose: Not Given Diltiazem HCl (Cardizem) 60 mg PO QID [facility] Last Admin: 08/14/16 10:57 Dose: 60 mg Donepezil HCl (Aricept) 10 mg PO HS [facility] Last Admin: 08/13/16 21:53 Dose: 10 mg Enoxaparin Sodium (Lovenox) 60 mg SC Q12 [facility] PRN Reason: Protocol Last Admin: 08/14/16 10:57 Dose: 60 mg Ferrous Sulfate (Feosol) 324 mg PO TID [facility] Last Admin: 08/14/16 10:58 Dose: 324 mg Hydralazine HCl (Apresoline) 10 mg IVP Q6 PRN PRN Reason: Other Last Admin: 08/10/16 00:15 Dose: 10 mg Metronidazole (Flagyl) 500 mg in 100 mls @ 100 mls/hr IVPB Q8 [facility]ENN[facility]ER PRN Reason: Protocol Last Admin: 08/14/16 05:38 Dose: 100 mls/hr Ampicillin Sodium/Sulbactam Sodium (Unasyn 1 Gm-0.5 Gm) 1 gm in 100 mls @ 100 mls/hr IVPB Q6 [facility] PRN Reason: Protocol Last Admin: 08/14/16 11:00 Dose: 100 mls/hr Vancomycin HCl (Vancomycin 1gm) 1 g in 250 mls @ 167 mls/hr IVPB Q12 [facility] PRN Reason: Protocol Last Admin: 08/13/16 18:25 Dose: Not Given Dextrose/Sodium Chloride (Dextrose 5%/0.9% Ns 1000 Ml) 1,000 mls @ 50 mls/hr IV .Q20H [facility] Last Admin: 08/13/16 12:19 Dose: Not Given Albumin Human (Albumin Human 5% (12.5 Gm/250 Ml)) 250 mls @ 62.5 mls/hr IV ONCE ONE Stop: 08/14/16 15:26 Metoprolol Tartrate (Lopressor) 50 mg PO BID [facility] Last Admin: 08/13/16 12:18 Dose: Not Given Metoprolol Tartrate (Lopressor) 5 mg IVP Q6 PRN PRN Reason: Heart rate Last Admin: 08/13/16 13:54 Dose: 5 mg Morphine Sulfate (Morphine) 0.5 mg IVP Q4H PRN PRN Reason: Pain, moderate (4-7) Last Admin: 08/13/16 07:34 Dose: 0.5 mg Ondansetron HCl (Zofran Inj) 4 mg IVP Q6 PRN PRN Reason: Nausea/Vomiting Pantoprazole Sodium (Protonix Ec Tab) 20 mg PO ACB [facility] Last Admin: 08/14/16 08:33 Dose: 20 mg - Labs Labs: 08/14/16 06:01 08/14/16 06:01 PT 15.2 Seconds (9.9-11.8) H 08/07/16 11:30 INR 1.41 (0.93-1.08) H 08/07/16 11:30 APTT 32.7 Seconds (23.7-30.8) H 08/07/16 11:30 - Constitutional Appears: Non-toxic, No Acute Distress, Chronically Ill - Head Exam Head Exam: ATRAUMATIC, NORMOCEPHALIC - Eye Exam Eye Exam: EOMI, PERRL Pupil Exam: NORMAL ACCOMODATION, PERRL - ENT Exam ENT Exam: Mucous Membranes Moist, Normal External Ear Exam, TM's Normal Bilaterally - Neck Exam Neck Exam: Full ROM, Normal Inspection - Respiratory Exam Respiratory Exam: Clear to Ausculation Bilateral, NORMAL BREATHING PATTERN. absent: Rales, Rhonchi, Wheezes - Cardiovascular Exam Cardiovascular Exam: REGULAR RHYTHM, RRR, +S1, +S2 - GI/Abdominal Exam GI & Abdominal Exam: Soft, Normal Bowel Sounds. absent: Distended, Tenderness Additional comments: colostomy in place. s/p sigmoidectomy. - Extremities Exam Extremities Exam: Full ROM, Normal Inspection - Neurological Exam Neurological Exam: Alert, Awake, CN II-XII Intact, Oriented x3 - Psychiatric Exam Psychiatric exam: Normal Affect, Normal Mood - Skin Skin Exam: Intact, Normal Color Assessment and Plan - Assessment and Plan (Free Text) Assessment: 86 yo female with intra-abdominal abscess presenting with drainage of pus. Taken by IR for drain placement. Spoke with Dr. Zaldivar in detail regarding case. He fears formation of fistula at this time. On Rocephin and Metronidazole. Last hospitalization showed VRE and E. coli growth. Supportive care with low tolerance for switching antibiotics to one such as meropenem. Current culture is showing E. coli that is sensitive to Rocephin and Ancef. Continuing on Ancef. On Diflucan to cover yeast in the urine. New cultures taken that have been negative to date. Sigmoid colectomy during exploratory laparotomy. Continue Ancef. Colostomy in place. On medical floor. Vancomycin IV continued. Repeat culture on 08/10/2016 negative so far. So far no further tachycardia episodes for the past 48 hours. Supportive care. She is ambulating with PT. She is tolerating a soft diet. Fortino drain with serosaguinous drainage. Thank you for allowing me to participate in the care of the patient, we will follow with you.
[2016-08-14] MEDS: Digoxin 500 mcg/2ml (0.5 mg/2ml) Inj IVP SCH (15:37)
[2016-08-14] MEDS ORDERED: diltiaZEM IVPB 100mg in NS 100 ML IV PRN (15:59)
--- NOTE | 2016-08-14 17:15 | PN ---
DATE: 08/14/2016 The patient is not eating. PHYSICAL EXAMINATION: VITAL SIGNS: Blood pressure is 110/76. The heart rate is atrial fibrillation at 120. NECK: Negative JVD. LUNGS: Decreased breath sounds. HEART: Reveals S1, S2. EXTREMITIES: Without edema. LABORATORY DATA: The hemoglobin is 9.3, white count is 20.1, BUN and creatinine are unremarkable. The troponin was 0.18 two days ago. IMPRESSION: 1. New onset atrial fibrillation. 2. Status post laparoscopy. 3. History of coronary artery disease. 4. History of percutaneous transluminal coronary angioplasty and stent earlier this year with a bare metal stent. PLAN: Given these findings, we will increase her Cardizem to help control her heart rate. The patie nt is not taking much p.o. We will increase her Cardizem to 90 t.i.d. Esa Wolfe MD cc: [id number] TT: 08/14/2016 17:15:11 Confirmation # [id number] Dictation # [id number] sn
--- NOTE | 2016-08-14 18:00 | CP.PCM.PN ---
Subjective - Date & Time of Evaluation Date of Evaluation: 08/14/16 Time of Evaluation: 13:00 - Subjective Subjective: Follow up Nephrology Consultation: Assessment: Non-oliguric Acute Kidney Injury likely due to ATN due to hypotension episode: Improved B/l pleural effusion with severe hypoalbuminemia, A fib with RVR hx of HTN, CAD s/p stent, CHF, HLD, Alzeheimer's dementia Diverticulitis with abscess s/p IR drainage s/p exploratory laparotomy (08/06) with sigmoid resection, washout of intra-abdominal abscess, mobilization of the splenic flexure, creation of ostomy and mucous fistula creation with B/L ureteral stent placement by Vit D def, mild lactic acidosis and hypomagnesemia, Hypokalemia Plan renal function stable. can continue with IV lasix 20 mg bid for her pleural effusions. supplement electrolytes as needed. nutritional support. Hypertension control with meds as ordered. continue to hold diovan due to recent KRIS. on PRN hydralazine for HTN reviewed renal sono: unremarkable Monitor Input/Output, daily weights monitor Vanco level. Avoid fleets enema/magnesium based laxatives. Avoid nephrotoxins/NSAIDs/ iodinated contrast (unless needed emergently) Glycemic control Further work up for as per primary team Thanks for allowing me to participate in care of your patient. Will follow patient with you. Please call if any Qs. Dr Jhon Can Office: [phone] HPI: Pt is a 86 y/o F with hx of HTN, CAD s/p stents, CHF, HLD, Alzeheimer's dementia and Diverticulitis w/abscess s/p IR drainage underwent exploratory laparotomy (08/06)with sigmoid resection, washout of intra-abdominal abscess, mobilization of the splenic flexure, creation of ostomy and mucous fistula creation with B/L ureteral stent placement by is seen in renal consultation as has decreased urine outpt in post-op period. episodes of low BP post-op, SBP 80-90 Subjective: pt looks better. awake today but not much communicating. Physical Examination: General Appearance: elderly female in no acute respiratory distress, ill appearing Vitals reviewed and noted as below. BP controlled HR increased Lungs: Normal respiratory rate/effort. Breath sounds bilateral decreased at bases Heart: Increased rate. s1s2 normal. No rub or gallop. Extremities: 2+ edema with anasarca Neurological: Patient is lawake but not much not communicative today Abdomen: Abdomen is soft. has LLQ ostomy. midline dressing and MO drains+ . : kidney or bladder not palpable. has cote Labs/imaging reviewed. Past medical history, past surgical history, family history, social history, allergy reviewed and noted as below work up: previosu imaging: normal kidneys and bladder UA: trace protein no blood Vit D <12 Mag 1.3 Urine Na 40 CTA 08/10: no PE. has b/l pleural effusions and consolidation Albumin 1.8 Objective - Vital Signs/Intake and Output Vital Signs (last 24 hours): Temp Pulse Resp BP Pulse Ox 98.8 F 114 H 20 136/114 H 96 08/14/16 12:00 08/14/16 17:10 08/14/16 12:00 08/14/16 17:10 08/14/16 06:00 Intake and Output: 08/14/16 08/14/16 06:59 18:59 Intake Total 565 940 Output Total 550 Balance 15 940 - Medications Medications: Current Medications Acetaminophen (Tylenol 650mg/20.3ml Solution Ud) 320 mg PO Q4 PRN PRN Reason: Fever >100.4 F Last Admin: 08/13/16 16:32 Dose: 320 mg Amiodarone HCl (Cordarone) 200 mg PO DAILY [facility] Last Admin: 08/14/16 10:58 Dose: 200 mg Aspirin (Aspirin Chewable) 81 mg PO DAILY [facility] Last Admin: 08/14/16 10:58 Dose: 81 mg Atorvastatin Calcium (Lipitor) 40 mg PO DIN [facility] Last Admin: 08/14/16 17:58 Dose: Not Given Benzocaine/Menthol (Cepacol Sore Throat) 1 [place] MT Q2H PRN PRN Reason: Sore Throat Last Admin: 08/08/16 10:10 Dose: 1 burton Calcium Carbonate (Oscal) 500 mg PO DAILY [facility] Last Admin: 08/14/16 10:58 Dose: 500 mg Cholecalciferol (Vitamin D) 2,000 iu PO DAILY [facility] Last Admin: 08/14/16 10:58 Dose: 2,000 iu Clonidine HCl (Catapres Tts1 0.1 Mg/24 Hr) 1 patch TD Q7D@1000 [facility] Last Admin: 08/14/16 10:37 Dose: Not Given Digoxin (Lanoxin) 0.25 mg IVP 1400 [facility] Last Admin: 08/14/16 15:37 Dose: Not Given Donepezil HCl (Aricept) 10 mg PO HS [facility] Last Admin: 08/13/16 21:53 Dose: 10 mg Enoxaparin Sodium (Lovenox) 60 mg SC Q12 [facility] PRN Reason: Protocol Last Admin: 08/14/16 10:57 Dose: 60 mg Ferrous Sulfate (Feosol) 324 mg PO TID [facility] Last Admin: 08/14/16 17:57 Dose: Not Given Hydralazine HCl (Apresoline) 10 mg IVP Q6 PRN PRN Reason: Other Last Admin: 08/10/16 00:15 Dose: 10 mg Metronidazole (Flagyl) 500 mg in 100 mls @ 100 mls/hr IVPB Q8 JENNIFER PRN Reason: Protocol Last Admin: 08/14/16 15:37 Dose: Not Given Ampicillin Sodium/Sulbactam Sodium (Unasyn 1 Gm-0.5 Gm) 1 gm in 100 mls @ 100 mls/hr IVPB Q6 [facility]ENN[facility]ER PRN Reason: Protocol Last Admin: 08/14/16 17:58 Dose: Not Given Vancomycin HCl (Vancomycin 1gm) 1 g in 250 mls @ 167 mls/hr IVPB Q12 [facility]ENN[facility]ER PRN Reason: Protocol Last Admin: 08/13/16 18:25 Dose: Not Given Dextrose/Sodium Chloride (Dextrose 5%/0.9% Ns 1000 Ml) 1,000 mls @ 50 mls/hr IV .Q20H [facility] Last Admin: 08/13/16 12:19 Dose: Not Given diltiaZEM IVPB 100mg in NS (Cardizem 100mg In Ns) 100 mls @ 5 mls/hr IV .Q20H PRN; Protocol; 5 MG/HR PRN Reason: TITRATE PER MD ORDER Last Admin: 08/14/16 17:10 Dose: 5 mg/hr, 5 mls/hr Metoprolol Tartrate (Lopressor) 50 mg PO BID [facility] Last Admin: 08/13/16 12:18 Dose: Not Given Metoprolol Tartrate (Lopressor) 5 mg IVP Q6 PRN PRN Reason: Heart rate Last Admin: 08/13/16 13:54 Dose: 5 mg Morphine Sulfate (Morphine) 0.5 mg IVP Q4H PRN PRN Reason: Pain, moderate (4-7) Last Admin: 08/13/16 07:34 Dose: 0.5 mg Ondansetron HCl (Zofran Inj) 4 mg IVP Q6 PRN PRN Reason: Nausea/Vomiting Pantoprazole Sodium (Protonix Ec Tab) 20 mg PO ACB [facility] Last Admin: 08/14/16 08:33 Dose: 20 mg - Labs Labs: 08/14/16 06:01 08/14/16 06:01 PT 15.2 Seconds (9.9-11.8) H 08/07/16 11:30 INR 1.41 (0.93-1.08) H 08/07/16 11:30 APTT 32.7 Seconds (23.7-30.8) H 08/07/16 11:30
[2016-08-15] MEDS ORDERED: diltiaZEM IVPB 100mg in NS 100 ML IV PRN (00:26)
[2016-08-15] MEDS: metroNIDAZOLE IV 500 mg/100 ml 500 MG/100 ML BAG IVPB SCH ×3 (07:42→22:16)
[2016-08-15] MEDS: Pantoprazole 20 mg EC Tab PO SCH (08:03)
--- NOTE | 2016-08-15 08:18 | CP.PCM.PN ---
Subjective - Date & Time of Evaluation Date of Evaluation: 08/15/16 Time of Evaluation: 08:12 - Subjective Subjective: Surgery: Dr. Keita Patient seems lethargic today. Some verbal response to verbal stimuli. Patient does not fully answer questions. Per nursing fortino output increased overnight totaling 220cc/12hrs on the right and 85cc/12hr on the left with dark blood appearing fluid output. Objective - Vital Signs/Intake and Output Vital Signs (last 24 hours): Temp Pulse Resp BP Pulse Ox 100.1 F H 113 H 19 156/114 H 96 08/15/16 00:01 08/15/16 06:00 08/15/16 00:01 08/14/16 18:00 08/14/16 06:00 Intake and Output: 08/15/16 08/15/16 06:59 18:59 Intake Total 72 Balance 72 - Medications Medications: Current Medications Acetaminophen (Tylenol 650mg/20.3ml Solution Ud) 320 mg PO Q4 PRN PRN Reason: Fever >100.4 F Last Admin: 08/13/16 16:32 Dose: 320 mg Amiodarone HCl (Cordarone) 200 mg PO DAILY [facility] Last Admin: 08/14/16 10:58 Dose: 200 mg Aspirin (Aspirin Chewable) 81 mg PO DAILY [facility] Last Admin: 08/14/16 10:58 Dose: 81 mg Atorvastatin Calcium (Lipitor) 40 mg PO DIN [facility] Last Admin: 08/14/16 17:58 Dose: Not Given Benzocaine/Menthol (Cepacol Sore Throat) 1 [place] MT Q2H PRN PRN Reason: Sore Throat Last Admin: 08/08/16 10:10 Dose: 1 burton Calcium Carbonate (Oscal) 500 mg PO DAILY [facility] Last Admin: 08/14/16 10:58 Dose: 500 mg Cholecalciferol (Vitamin D) 2,000 iu PO DAILY [facility] Last Admin: 08/14/16 10:58 Dose: 2,000 iu Clonidine HCl (Catapres Tts1 0.1 Mg/24 Hr) 1 patch TD Q7D@1000 [facility] Last Admin: 08/14/16 10:37 Dose: Not Given Digoxin (Lanoxin) 0.25 mg IVP 1400 [facility] Last Admin: 08/14/16 15:37 Dose: Not Given Donepezil HCl (Aricept) 10 mg PO HS [facility] Last Admin: 08/14/16 22:19 Dose: Not Given Enoxaparin Sodium (Lovenox) 60 mg SC Q12 JENNIFER PRN Reason: Protocol Last Admin: 08/14/16 22:19 Dose: Not Given Ferrous Sulfate (Feosol) 324 mg PO TID [facility] Last Admin: 08/14/16 17:57 Dose: Not Given Hydralazine HCl (Apresoline) 10 mg IVP Q6 PRN PRN Reason: Other Last Admin: 08/10/16 00:15 Dose: 10 mg Metronidazole (Flagyl) 500 mg in 100 mls @ 100 mls/hr IVPB Q8 JENNIFER PRN Reason: Protocol Last Admin: 08/15/16 07:42 Dose: Not Given Ampicillin Sodium/Sulbactam Sodium (Unasyn 1 Gm-0.5 Gm) 1 gm in 100 mls @ 100 mls/hr IVPB Q6 JENNIFER PRN Reason: Protocol Last Admin: 08/15/16 03:29 Dose: Not Given Vancomycin HCl (Vancomycin 1gm) 1 g in 250 mls @ 167 mls/hr IVPB Q12 JENNIFER PRN Reason: Protocol Last Admin: 08/13/16 18:25 Dose: Not Given Dextrose/Sodium Chloride (Dextrose 5%/0.9% Ns 1000 Ml) 1,000 mls @ 50 mls/hr IV .Q20H [facility] Last Admin: 08/13/16 12:19 Dose: Not Given diltiaZEM IVPB 100mg in NS (Cardizem 100mg In Ns) 100 mls @ 6 mls/hr IV .[id number] PRN; Protocol; 6 MG/HR PRN Reason: TITRATE PER MD ORDER Metoprolol Tartrate (Lopressor) 50 mg PO BID [facility] Last Admin: 08/13/16 12:18 Dose: Not Given Metoprolol Tartrate (Lopressor) 5 mg IVP Q6 PRN PRN Reason: Heart rate Last Admin: 08/13/16 13:54 Dose: 5 mg Morphine Sulfate (Morphine) 0.5 mg IVP Q4H PRN PRN Reason: Pain, moderate (4-7) Last Admin: 08/13/16 07:34 Dose: 0.5 mg Ondansetron HCl (Zofran Inj) 4 mg IVP Q6 PRN PRN Reason: Nausea/Vomiting Pantoprazole Sodium (Protonix Ec Tab) 20 mg PO ACB [facility] Last Admin: 08/15/16 08:03 Dose: Not Given - Labs Labs: 08/14/16 06:01 08/14/16 06:01 PT 15.2 Seconds (9.9-11.8) H 08/07/16 11:30 INR 1.41 (0.93-1.08) H 08/07/16 11:30 APTT 32.7 Seconds (23.7-30.8) H 08/07/16 11:30 - Constitutional Appears: No Acute Distress, Chronically Ill - Head Exam Head Exam: ATRAUMATIC, NORMOCEPHALIC - Eye Exam Eye Exam: EOMI, Normal appearance - ENT Exam ENT Exam: Mucous Membranes Moist - Respiratory Exam Respiratory Exam: NORMAL BREATHING PATTERN. absent: Respiratory Distress - Cardiovascular Exam Cardiovascular Exam: REGULAR RHYTHM. absent: Tachycardia - GI/Abdominal Exam GI & Abdominal Exam: Soft. absent: Distended, Tenderness Additional comments: right fortino output w/ dark blood output and left w/ sanguineous output - Skin Skin Exam: Dry, Warm Assessment and Plan - Assessment and Plan (Free Text) Assessment: 86 y/o female w/ intra-abdominal abscess s/p colon resection w/ colostomy and mucous fistula creation POD8 Plan: -Fortino output increased and appears bloody today -f/u am labs -strict fortino output monitoring -cont blakes for now until output decreases -further recs per Dr. Bossman Paez PGY1
--- NOTE | 2016-08-15 09:28 | CP.PCM.PN ---
Subjective - Date & Time of Evaluation Date of Evaluation: 08/15/16 Time of Evaluation: 09:27 - Subjective Subjective: Follow up Nephrology Consultation: Assessment: Non-oliguric Acute Kidney Injury likely due to ATN due to hypotension episode: Improved B/l pleural effusion with severe hypoalbuminemia, A fib with RVR hx of HTN, CAD s/p stent, CHF, HLD, Alzeheimer's dementia Diverticulitis with abscess s/p IR drainage s/p exploratory laparotomy (08/06) with sigmoid resection, washout of intra-abdominal abscess, mobilization of the splenic flexure, creation of ostomy and mucous fistula creation with B/L ureteral stent placement by Vit D def, mild lactic acidosis and hypomagnesemia, Hypokalemia Plan renal function stable. can continue with IV lasix 20 mg bid for her pleural effusions. supplement electrolytes as needed. nutritional support. Hypertension control with meds as ordered. continue to hold diovan due to recent KRIS. on PRN hydralazine for HTN reviewed renal sono: unremarkable Monitor Input/Output, daily weights monitor Vanco level. Avoid fleets enema/magnesium based laxatives. Avoid nephrotoxins/NSAIDs/ iodinated contrast (unless needed emergently) Glycemic control Further work up for as per primary team Thanks for allowing me to participate in care of your patient. Will sign off. Please call if any Qs. Dr Jhon Can Office: [phone] HPI: Pt is a 86 y/o F with hx of HTN, CAD s/p stents, CHF, HLD, Alzeheimer's dementia and Diverticulitis w/abscess s/p IR drainage underwent exploratory laparotomy (08/06)with sigmoid resection, washout of intra-abdominal abscess, mobilization of the splenic flexure, creation of ostomy and mucous fistula creation with B/L ureteral stent placement by is seen in renal consultation as has decreased urine outpt in post-op period. episodes of low BP post-op, SBP 80-90 Subjective: pt looks better. awake today but not much communicating. Physical Examination: General Appearance: elderly female in no acute respiratory distress Vitals reviewed and noted as below. BP controlled HR increased Lungs: Normal respiratory rate/effort. Breath sounds bilateral decreased at bases Heart: Increased rate. s1s2 normal. No rub or gallop. Extremities: 2+ edema with anasarca Neurological: Patient is awake but not much not communicative today Abdomen: Abdomen is soft. has LLQ ostomy. midline dressing and MO drains+ . : kidney or bladder not palpable. has cote Labs/imaging reviewed. Past medical history, past surgical history, family history, social history, allergy reviewed and noted as below work up: previosu imaging: normal kidneys and bladder UA: trace protein no blood Vit D <12 Mag 1.3 Urine Na 40 CTA 08/10: no PE. has b/l pleural effusions and consolidation Albumin 1.8 Objective - Vital Signs/Intake and Output Vital Signs (last 24 hours): Temp Pulse Resp BP Pulse Ox 100.1 F H 113 H 19 156/114 H 96 08/15/16 00:01 08/15/16 06:00 08/15/16 00:01 08/14/16 18:00 08/14/16 06:00 Intake and Output: 08/15/16 08/15/16 06:59 18:59 Intake Total 72 Balance 72 - Medications Medications: Current Medications Acetaminophen (Tylenol 650mg/20.3ml Solution Ud) 320 mg PO Q4 PRN PRN Reason: Fever >100.4 F Last Admin: 08/13/16 16:32 Dose: 320 mg Amiodarone HCl (Cordarone) 200 mg PO DAILY [facility] Last Admin: 08/14/16 10:58 Dose: 200 mg Aspirin (Aspirin Chewable) 81 mg PO DAILY [facility] Last Admin: 08/14/16 10:58 Dose: 81 mg Atorvastatin Calcium (Lipitor) 40 mg PO DIN [facility] Last Admin: 08/14/16 17:58 Dose: Not Given Benzocaine/Menthol (Cepacol Sore Throat) 1 burton MT Q2H PRN PRN Reason: Sore Throat Last Admin: 08/08/16 10:10 Dose: 1 burton Calcium Carbonate (Oscal) 500 mg PO DAILY [facility] Last Admin: 08/14/16 10:58 Dose: 500 mg Cholecalciferol (Vitamin D) 2,000 iu PO DAILY [facility] Last Admin: 08/14/16 10:58 Dose: 2,000 iu Clonidine HCl (Catapres Tts1 0.1 Mg/24 Hr) 1 patch TD Q7D@1000 [facility] Last Admin: 08/14/16 10:37 Dose: Not Given Digoxin (Lanoxin) 0.25 mg IVP 1400 [facility] Last Admin: 08/14/16 15:37 Dose: Not Given Donepezil HCl (Aricept) 10 mg PO HS [facility] Last Admin: 08/14/16 22:19 Dose: Not Given Enoxaparin Sodium (Lovenox) 60 mg SC Q12 JENNIFER PRN Reason: Protocol Last Admin: 08/14/16 22:19 Dose: Not Given Ferrous Sulfate (Feosol) 324 mg PO TID [facility] Last Admin: 08/14/16 17:57 Dose: Not Given Hydralazine HCl (Apresoline) 10 mg IVP Q6 PRN PRN Reason: Other Last Admin: 08/10/16 00:15 Dose: 10 mg Metronidazole (Flagyl) 500 mg in 100 mls @ 100 mls/hr IVPB Q8 JENNIFER PRN Reason: Protocol Last Admin: 08/15/16 07:42 Dose: Not Given Ampicillin Sodium/Sulbactam Sodium (Unasyn 1 Gm-0.5 Gm) 1 gm in 100 mls @ 100 mls/hr IVPB Q6 JENNIFER PRN Reason: Protocol Last Admin: 08/15/16 03:29 Dose: Not Given Vancomycin HCl (Vancomycin 1gm) 1 g in 250 mls @ 167 mls/hr IVPB Q12 JENNIFER PRN Reason: Protocol Last Admin: 08/13/16 18:25 Dose: Not Given Dextrose/Sodium Chloride (Dextrose 5%/0.9% Ns 1000 Ml) 1,000 mls @ 50 mls/hr IV .Q20H [facility] Last Admin: 08/13/16 12:19 Dose: Not Given diltiaZEM IVPB 100mg in NS (Cardizem 100mg In Ns) 100 mls @ 6 mls/hr IV .[id number] PRN; Protocol; 6 MG/HR PRN Reason: TITRATE PER MD ORDER Metoprolol Tartrate (Lopressor) 50 mg PO BID [facility] Last Admin: 08/13/16 12:18 Dose: Not Given Metoprolol Tartrate (Lopressor) 5 mg IVP Q6 PRN PRN Reason: Heart rate Last Admin: 08/13/16 13:54 Dose: 5 mg Morphine Sulfate (Morphine) 0.5 mg IVP Q4H PRN PRN Reason: Pain, moderate (4-7) Last Admin: 08/13/16 07:34 Dose: 0.5 mg Ondansetron HCl (Zofran Inj) 4 mg IVP Q6 PRN PRN Reason: Nausea/Vomiting Pantoprazole Sodium (Protonix Ec Tab) 20 mg PO ACB [facility] Last Admin: 08/15/16 08:03 Dose: Not Given - Labs Labs: 08/14/16 06:01 08/14/16 06:01 PT 15.2 Seconds (9.9-11.8) H 08/07/16 11:30 INR 1.41 (0.93-1.08) H 08/07/16 11:30 APTT 32.7 Seconds (23.7-30.8) H 08/07/16 11:30
--- NOTE | 2016-08-15 10:03 | CP.PCM.PN ---
<Jess Wilkerson - Last Filed: 08/15/16 22:50> Subjective - Date & Time of Evaluation Date of Evaluation: 08/15/16 Time of Evaluation: 07:10 - Subjective Subjective: Medicine progress note for Dr Diaz and Dr Zuniga service. Since yesterday afternoon patient refused her po meds. Patient then refused vitals, and blood work. Patient also refused to eat. Spoke alot of time explaining to patient about why its important that she cooperates, however still refused all the care that was being provided to her, and stated " I want the lord to take me". Patient's brother was at bedside around 1600, attempted to feed patient, patient refused. As per night team, all night patient continued to refuse all meds, vitals, and blood work this AM. Called patient's granddaughter, Ryland at [phone], whom reported she is aware of the fact that patient is not cooperating, and is on her way to the hospital. Patient's next of kin is patient's daughter, however her daughter is also very sick and is unable to make decisions for her, thus the granddaughter is the only person available. Although, on Medical records patient is demented, patient appears to have waxing /waning mental status, and is at times a&ox3. However this AM, patient appears very lethargic, refused to open her eyes, or respond to questions. Patient's po Cardizem was changed to Cardizem drip yesterday, however her HR fluctuated al night between HR of 40s-140s. Psych and palliative consult was obtained. ~1500, got a call from nurse that radiologist called, and patient had large perinephric hematoma. Lab also called, patient had hgb of 5.9. ICU eval was obtained, patient was type and crossed 4 units, and 4 units of ffp. Urology was consulted, and surgery was made aware. Patient to be transferred to ICU. Family to be updated. Objective - Vital Signs/Intake and Output Vital Signs (last 24 hours): Temp Pulse Resp BP Pulse Ox 100.1 F H 113 H 19 156/114 H 96 08/15/16 00:01 08/15/16 06:00 08/15/16 00:01 08/14/16 18:00 08/14/16 06:00 Intake and Output: 08/15/16 08/15/16 06:59 18:59 Intake Total 72 Balance 72 - Medications Medications: Current Medications Acetaminophen (Tylenol 650mg/20.3ml Solution Ud) 320 mg PO Q4 PRN PRN Reason: Fever >100.4 F Last Admin: 08/13/16 16:32 Dose: 320 mg Amiodarone HCl (Cordarone) 200 mg PO DAILY [facility] Last Admin: 08/14/16 10:58 Dose: 200 mg Aspirin (Aspirin Chewable) 81 mg PO DAILY [facility] Last Admin: 08/14/16 10:58 Dose: 81 mg Atorvastatin Calcium (Lipitor) 40 mg PO DIN [facility] Last Admin: 08/14/16 17:58 Dose: Not Given Benzocaine/Menthol (Cepacol Sore Throat) 1 burton MT Q2H PRN PRN Reason: Sore Throat Last Admin: 08/08/16 10:10 Dose: 1 burton Calcium Carbonate (Oscal) 500 mg PO DAILY [facility] Last Admin: 08/14/16 10:58 Dose: 500 mg Cholecalciferol (Vitamin D) 2,000 iu PO DAILY [facility] Last Admin: 08/14/16 10:58 Dose: 2,000 iu Clonidine HCl (Catapres Tts1 0.1 Mg/24 Hr) 1 patch TD Q7D@1000 [facility] Last Admin: 08/14/16 10:37 Dose: Not Given Digoxin (Lanoxin) 0.25 mg IVP 1400 [facility] Last Admin: 08/14/16 15:37 Dose: Not Given Donepezil HCl (Aricept) 10 mg PO HS [facility] Last Admin: 08/14/16 22:19 Dose: Not Given Enoxaparin Sodium (Lovenox) 60 mg SC Q12 JENNIFER PRN Reason: Protocol Last Admin: 08/14/16 22:19 Dose: Not Given Ferrous Sulfate (Feosol) 324 mg PO TID [facility] Last Admin: 08/14/16 17:57 Dose: Not Given Hydralazine HCl (Apresoline) 10 mg IVP Q6 PRN PRN Reason: Other Last Admin: 08/10/16 00:15 Dose: 10 mg Metronidazole (Flagyl) 500 mg in 100 mls @ 100 mls/hr IVPB Q8 JENNIFER PRN Reason: Protocol Last Admin: 08/15/16 07:42 Dose: Not Given Ampicillin Sodium/Sulbactam Sodium (Unasyn 1 Gm-0.5 Gm) 1 gm in 100 mls @ 100 mls/hr IVPB Q6 JENNIFER PRN Reason: Protocol Last Admin: 08/15/16 03:29 Dose: Not Given Vancomycin HCl (Vancomycin 1gm) 1 g in 250 mls @ 167 mls/hr IVPB Q12 JENNIFER PRN Reason: Protocol Last Admin: 08/13/16 18:25 Dose: Not Given Dextrose/Sodium Chloride (Dextrose 5%/0.9% Ns 1000 Ml) 1,000 mls @ 50 mls/hr IV .Q20H [facility] Last Admin: 08/13/16 12:19 Dose: Not Given diltiaZEM IVPB 100mg in NS (Cardizem 100mg In Ns) 100 mls @ 6 mls/hr IV .[id number] PRN; Protocol; 6 MG/HR PRN Reason: TITRATE PER MD ORDER Metoprolol Tartrate (Lopressor) 50 mg PO BID [facility] Last Admin: 08/13/16 12:18 Dose: Not Given Metoprolol Tartrate (Lopressor) 5 mg IVP Q6 PRN PRN Reason: Heart rate Last Admin: 08/13/16 13:54 Dose: 5 mg Morphine Sulfate (Morphine) 0.5 mg IVP Q4H PRN PRN Reason: Pain, moderate (4-7) Last Admin: 08/13/16 07:34 Dose: 0.5 mg Ondansetron HCl (Zofran Inj) 4 mg IVP Q6 PRN PRN Reason: Nausea/Vomiting Pantoprazole Sodium (Protonix Ec Tab) 20 mg PO ACB [facility] Last Admin: 08/15/16 08:03 Dose: Not Given - Labs Labs: 08/14/16 06:01 08/14/16 06:01 PT 15.2 Seconds (9.9-11.8) H 08/07/16 11:30 INR 1.41 (0.93-1.08) H 08/07/16 11:30 APTT 32.7 Seconds (23.7-30.8) H 08/07/16 11:30 - Constitutional Appears: No Acute Distress, Cachectic, Chronically Ill - Head Exam Head Exam: ATRAUMATIC, NORMAL INSPECTION, NORMOCEPHALIC - Eye Exam Eye Exam: absent: Scleral icterus - ENT Exam ENT Exam: Mucous Membranes Dry - Neck Exam Neck Exam: Normal Inspection - Respiratory Exam Respiratory Exam: Decreased Breath Sounds (at the bases. ). absent: Rales, Rhonchi, Wheezes, Respiratory Distress, Stridor - Cardiovascular Exam Cardiovascular Exam: Tachycardia, Irregular Rhythm, +S1, +S2, Murmur - GI/Abdominal Exam GI & Abdominal Exam: Soft, Tenderness, Normal Bowel Sounds. absent: Distended, Firm, Guarding, Rigid Additional comments: Ostomy with brown loose stool in the bag. MO drain x2, with serosanguinous fluid. Incision site intact, no erythema, no drainage. - Extremities Exam Extremities Exam: Pedal Edema (+3) - Back Exam Back Exam: NORMAL INSPECTION - Neurological Exam Neurological Exam: absent: Alert, Awake, Oriented x3 Additional comments: Patient lethargic, refused to open her eyes, not responding to questions. - Psychiatric Exam Psychiatric exam: Flat Affect - Skin Skin Exam: Normal Color, Warm Additional comments: + diffuse body edema Assessment and Plan - Assessment and Plan (Free Text) Assessment: Patient is an 86 y/o with PMH of HTN, CAD s/p stents, CHF, HLD, Alzheimer's dementia, h/o cholecystectomy, Diverticulitis admitted with intra-abdominal abscess with cutaneous fistula s/p IR drain placement and removal, s/p sigmoid resection with colostomy and mucous fistula. Oliguric post op, which has now resolved. Developed RVR afib 2 days post op, was on Cardizem drip, which was switched to po Cardizem, once the rate was controlled. Patient currently refused medical care, including po meds, thus switched back to Cardizem drip. Leukocytosis continued to trend up. CT w/ po contrast was obtained to work up the leukocytosis,, and revealed acute left perinephric hematoma, HGB was 5.9, with INR of 1.14. Patient's SBP was also in the 90s. Patient to be transferred to ICU for further monitoring. Plan: 1) Left acute perinephric hematoma on CT - surgery notified, urology consult - ICU eval obtained - Type and cross for transfusion of ffp and prbc. 2) Symptomatic acute on chronic anemia 2nd to perinephric hematoma - s/p 2 units of prbc on 08/13 - hgb today dropped to 5.9 - repeat cbc - type and cross 4 units ffp and prbc, and transfuse 2 units. 3) New onset RVR Afib - Patient refused po meds - will continue Cardizem drip - d/c lovenox 2nd to acute perinephric hematoma 4) h/o CAD with stents, NSTEMI this admission. - hold Lipitor, and Lopressor. will change asa to rc. 5)Sepsis with HAP as source - repeat bcx no growth - on vanco and unasyn - ID on board - Leukocytosis worsening - will consider chest x-ray to evaluate the progression of the consolidation 6) Diverticulitis with intra-abdominal abscess and cutaneous fistula s/p IR drain, s/p exp lap with sigmoid resection, colostomy mucous fistula, and washout. - wound care as per surgery - OOBTC - ID and surgery following. 7) Hypokalemia/hypomag/hypophos-will replet and continue to monitor. 8)KRIS- likely 2nd to ATN- - creat stable and uo improved - will continue to monitor. 9) Malnutrition with anasarca and b/l pleural effusion - Albumin still very low, will give 25 mg albumin x2. - will continue puree diet, and ensure as tolerated - Feed with assistance - calorie count. - will consider alternative means of nutrition, will discuss with family. 10) h/o HTN-continue clonidine patch, Lopressor and Hydralazine prn for htn. 11) Transaminitis-resolved 12) Vitamin D deficiency - po vitamin d 2000 13) Dementia- continue aricept 14) DVT prophylaxis: Lovenox and protonix. 15) Dispo- BRITTANY when medically optimized. 16) Suicidal ideation- psych consult obtained Overall patient has a very poor prognosis, will also obtain palliative nurse consult. Patient, seen, examined, and case discussed with Dr Diaz. <Praful Diaz - Last Filed: 09/11/16 08:39> Objective - Vital Signs/Intake and Output Vital Signs (last 24 hours): Temp Pulse Resp BP Pulse Ox 95 F L 42 L 36 H 95/57 L 96 08/17/16 12:00 08/17/16 20:00 08/17/16 20:00 08/17/16 19:00 08/17/16 20:30 - Labs Labs: 08/17/16 05:00 08/17/16 05:00 PT 12.3 Seconds (9.9-11.8) H 08/15/16 14:50 INR 1.14 (0.93-1.08) H 08/15/16 14:50 APTT 34.8 Seconds (23.7-30.8) H 08/15/16 14:50 Attending/Attestation - Attestation I have personally seen and examined this patient.: Yes I have fully participated in the care of the patient.: Yes I have reviewed all pertinent clinical information, including history, physical exam and plan: Yes Notes (Text): 09/11/16 08:39 Medical record note made by resident after discussion with my direction and input after patient personally seen and examined by me. I have reviewed the chart and agree that the record accurately reflects my personal history, physical, data review and plan.
[2016-08-15] MEDS: Enoxaparin 60 mg Syringe SC SCH ×2 (10:04→11:25)
--- NOTE | 2016-08-15 10:33 | PN ---
DATE: 08/15/2016 CARDIOLOGY FOLLOWUP The patient appears depressed, is willing to take medications. PHYSICAL EXAMINATION: VITAL SIGNS: Blood pressure is 156/114. The heart rate is 113, atrial fibrillation. NECK: Negative JVD. LUNGS: Decreased breath sounds. HEART: Revealed S1, S2. EXTREMITIES: Without change. LABORATORY DATA: Hemoglobin is 9.3. White count is 20.1. Potassium is 4.0. IMPRESSION: 1. Sepsis. 2. Atrial fibrillation, controlled only with IV Cardizem because the patient refuses p.o. medication . 3. Status post laparoscopy. 4. Recent percutaneous transluminal coronary angioplasty and stent with a bare metal stent earlier t his year. PLAN: Given these findings, we will need to consider hospice care. Perhaps a psychiatric evaluation might be helpful. Esa Wolfe MD cc: [id number] TT: 08/15/2016 10:24:17 Confirmation # [id number] Dictation # [id number] [email or web address]
[2016-08-15] MEDS ORDERED: Barium Sulfate Susp 2.1% w/v, 2.0% w/w 450 mL Bottle PO ONE (11:00)
--- NOTE | 2016-08-15 11:41 | PN ---
DATE: 08/15/2016 Seen and examined at the bedside earlier this morning. The patient with no current complaints. Keny es any nausea. No complaints of discomfort at this time. The patient with elevated white count yest erday. Stool for C. diff is pending. The patient is reported to have refused CT scan. The patient was refusing medications yesterday. VITAL SIGNS: The patient had temp last night at 100.1. Afebrile this morning, pulse rate is 113. LABORATORY DATA: No new labs are noted this morning. PHYSICAL EXAMINATION: HEENT: Sclerae are anicteric. NECK: Supple. CARDIAC: S1, S2. LUNGS: Decreased breath sounds at the bases. No rales or wheeze. ABDOMEN: With bowel sounds, soft. Some tenderness, no rebound or guarding. The patient has an osto my with loose brown stool. No blood. MO drain x 2 with serosanguineous drain. Incisional site is d ry and intact. ASSESSMENT: An 86-year-old female with past medical history of hypertension, coronary artery disease , status post stents and history of Alzheimer's dementia, came with diverticulitis and intraabdominal abscess with cutaneous fistula, status post initially interventional radiology drain, now status pos t exploratory laparoscopic with sigmoid resection and colostomy. The patient also with rapid ventric ular rate, atrial fibrillation, anemia, status post blood transfusion. There is no active gastrointe stinal bleed. The patient now with leukocytosis. PLAN: Follow up stool for C. diff. If that is negative, then consider CT scan with oral contrast. The patient currently is refusing treatment right now. Monitor H and H and overt GI bleed. The brook ent is on soft diet, aspiration precautions. The patient is on IV antibiotics, Unasyn; is on Cardize m drip, Lovenox, iron, also on Flagyl IV, PPI and vancomycin. The patient is currently refusing medi cations. The patient was seen and case discussed with Dr. Archuleta. Arina Gibsones ZONIA cc: [id number] TT: 08/15/2016 11:40:50 Confirmation # [id number] Dictation # [id number]
--- NOTE | 2016-08-15 13:45 | CP.PCM.PN ---
Subjective - Date & Time of Evaluation Date of Evaluation: 08/15/16 Time of Evaluation: 12:15 - Subjective Subjective: Infectious Disease Follow Up: August 15, 2016 85 yo [place] [facility] [place]ita[place] after discovery of purulent drainage from left lower abdominal drain site. She has a history of hypertension, GI bleed, CAD with stents, anemia, and osteoporosis. Many of her hospitalizations last year were for GI bleed. 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 She is currently on ceftriaxone and Flagyl. This will cover most recurrences of E. coli. Taken to IR by Dr. Zaldivar on Friday. 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 IR drain is still showing fecal material. E. coli in cultures of wound site. Yeast in urine cultures. Tre-colectomy yesteday with monitoring post surgery in MICU. Patient transferred to medical floor. Low urine output. Noted events of previous night where patient was briefly unresponsive and finally awoke after several attempts with deep chest rubs. Patient was lethargic this morning according to notes. Today the patient had bouts of tachycardia up to 200 bpm. Reported to me by resident that the patient had fevers up to 101.2 F a few days ago. I had suggested Vancomycin use based on that information. I do not see any recording of fevers in the chart at this point. Reports are of tachycardia. The patient did have a CT scan that showed bilateral pleural effusions which was reported to me by the medical office representative. Vancomycin added for potential hospital acquired pneumonia. Noted the events of last night and this morning. The patient is now refusing all medications and care. Mentation usually waxes and wanes. The patient refused to eat. She is very lethargic when seen. She stated to the resident this morning "I want the Lord to take me". Objective - Vital Signs/Intake and Output Vital Signs (last 24 hours): Temp Pulse Resp BP Pulse Ox 100.1 F H 113 H 19 156/114 H 96 08/15/16 00:01 08/15/16 06:00 08/15/16 00:01 08/14/16 18:00 08/14/16 06:00 Intake and Output: 08/15/16 08/15/16 06:59 18:59 Intake Total 72 Balance 72 - Medications Medications: Current Medications Acetaminophen (Tylenol 650mg/20.3ml Solution Ud) 320 mg PO Q4 PRN PRN Reason: Fever >100.4 F Last Admin: 08/13/16 16:32 Dose: 320 mg Albumin Human (Albumin Human 25% (12.5 Gm/50 Ml)) 25 gm IV BID [facility] Stop: 08/16/16 18:01 Amiodarone HCl (Cordarone) 200 mg PO DAILY [facility] Last Admin: 08/15/16 11:27 Dose: 200 mg Aspirin (Aspirin Chewable) 81 mg PO DAILY [facility] Last Admin: 08/15/16 11:27 Dose: 81 mg Atorvastatin Calcium (Lipitor) 40 mg PO DIN [facility] Last Admin: 08/14/16 17:58 Dose: Not Given Benzocaine/Menthol (Cepacol Sore Throat) 1 burton MT Q2H PRN PRN Reason: Sore Throat Last Admin: 08/08/16 10:10 Dose: 1 burton Calcium Carbonate (Oscal) 500 mg PO DAILY [facility] Last Admin: 08/15/16 11:27 Dose: 500 mg Cholecalciferol (Vitamin D) 2,000 iu PO DAILY [facility] Last Admin: 08/15/16 11:27 Dose: 2,000 iu Clonidine HCl (Catapres Tts1 0.1 Mg/24 Hr) 1 patch TD Q7D@1000 [facility] Last Admin: 08/14/16 10:37 Dose: Not Given Digoxin (Lanoxin) 0.25 mg IVP 1400 [facility] Last Admin: 08/14/16 15:37 Dose: Not Given Donepezil HCl (Aricept) 10 mg PO HS [facility] Last Admin: 08/14/16 22:19 Dose: Not Given Enoxaparin Sodium (Lovenox) 60 mg SC Q12 JENNIFER PRN Reason: Protocol Last Admin: 08/15/16 11:25 Dose: 60 mg Ferrous Sulfate (Feosol) 324 mg PO TID [facility] Last Admin: 08/15/16 11:26 Dose: Not Given Hydralazine HCl (Apresoline) 10 mg IVP Q6 PRN PRN Reason: Other Last Admin: 08/10/16 00:15 Dose: 10 mg Metronidazole (Flagyl) 500 mg in 100 mls @ 100 mls/hr IVPB Q8 [facility] PRN Reason: Protocol Last Admin: 08/15/16 07:42 Dose: Not Given Vancomycin HCl (Vancomycin 1gm) 1 g in 250 mls @ 167 mls/hr IVPB Q12 JENNIFER PRN Reason: Protocol Last Admin: 08/13/16 18:25 Dose: Not Given Dextrose/Sodium Chloride (Dextrose 5%/0.9% Ns 1000 Ml) 1,000 mls @ 50 mls/hr IV .Q20H [facility] Last Admin: 08/13/16 12:19 Dose: Not Given diltiaZEM IVPB 100mg in NS (Cardizem 100mg In Ns) 100 mls @ 6 mls/hr IV .[id number] PRN; Protocol; 6 MG/HR PRN Reason: TITRATE PER MD ORDER Metoprolol Tartrate (Lopressor) 50 mg PO BID [facility] Last Admin: 08/13/16 12:18 Dose: Not Given Metoprolol Tartrate (Lopressor) 5 mg IVP Q6 PRN PRN Reason: Heart rate Last Admin: 08/13/16 13:54 Dose: 5 mg Morphine Sulfate (Morphine) 0.5 mg IVP Q4H PRN PRN Reason: Pain, moderate (4-7) Last Admin: 08/13/16 07:34 Dose: 0.5 mg Ondansetron HCl (Zofran Inj) 4 mg IVP Q6 PRN PRN Reason: Nausea/Vomiting Pantoprazole Sodium (Protonix Ec Tab) 20 mg PO ACB [facility] Last Admin: 08/15/16 08:03 Dose: Not Given - Labs Labs: 08/14/16 06:01 08/14/16 06:01 PT 15.2 Seconds (9.9-11.8) H 08/07/16 11:30 INR 1.41 (0.93-1.08) H 08/07/16 11:30 APTT 32.7 Seconds (23.7-30.8) H 08/07/16 11:30 - Constitutional Appears: Non-toxic, No Acute Distress, Chronically Ill - Head Exam Head Exam: ATRAUMATIC, NORMOCEPHALIC - Eye Exam Eye Exam: EOMI, PERRL Pupil Exam: NORMAL ACCOMODATION, PERRL - ENT Exam ENT Exam: Mucous Membranes Moist, Normal External Ear Exam, TM's Normal Bilaterally - Neck Exam Neck Exam: Full ROM, Normal Inspection - Respiratory Exam Respiratory Exam: Clear to Ausculation Bilateral, NORMAL BREATHING PATTERN. absent: Rales, Rhonchi, Wheezes - Cardiovascular Exam Cardiovascular Exam: REGULAR RHYTHM, RRR, +S1, +S2 - GI/Abdominal Exam GI & Abdominal Exam: Soft, Normal Bowel Sounds. absent: Tenderness, Diminished Bowel Sounds Additional comments: colostomy in place. s/p sigmoidectomy. - Extremities Exam Extremities Exam: Full ROM, Normal Inspection - Neurological Exam Neurological Exam: Alert, Awake, CN II-XII Intact, Oriented x3 - Psychiatric Exam Psychiatric exam: Normal Affect, Normal Mood - Skin Skin Exam: Intact, Normal Color Assessment and Plan - Assessment and Plan (Free Text) Assessment: 86 yo female with intra-abdominal abscess presenting with drainage of pus. Taken by IR for drain placement. Spoke with Dr. Zaldivar in detail regarding case. He fears formation of fistula at this time. On Rocephin and Metronidazole. Last hospitalization showed VRE and E. coli growth. Supportive care with low tolerance for switching antibiotics to one such as meropenem. Current culture is showing E. coli that is sensitive to Rocephin and Ancef. Continuing on Ancef. On Diflucan to cover yeast in the urine. New cultures taken that have been negative to date. Sigmoid colectomy during exploratory laparotomy. Continue Ancef. Colostomy in place. On medical floor. Vancomycin IV continued. Repeat culture on 08/10/2016 negative so far. So far no further tachycardia episodes for the past 48 hours. Supportive care. She is ambulating with PT. She is tolerating a soft diet. Fortino drain with serosaguinous drainage. Noted that the patient has refused meals and meds since last night. Lethargic today. Thank you for allowing me to participate in the care of the patient, we will follow with you.
--- NOTE | 2016-08-15 14:05 | CP.PCM.CON ---
History of Present Illness - History of Present Illness History of Present Illness: Palliative consult requested by Dr. 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 She is s/p IR drain placement and removal, she then had sigmoid resection with colostomy. 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 She had a NSTEMI, atrial fibrillation with RVR requiring Cardizem drip. She has ongoing leukocysitosis. PMHx: anemia, CAD s/p stents, HTN,HLD,CHF,LVD,Alzheimer's dementia, s/p cholesystectomy,hysterectomy. Social History: Non smoker,no alcohol or drug use. Lives with granddaughter Ryland Doan. Family History: Non contributory. Advance Care Planning: The patient does not have an Advanced Directive. Review of Systems: Unable to obtain,the patient is altered Past Patient History - Infectious Disease Hx of Infectious Diseases: None - Tetanus Immunizations Tetanus Immunization: Unknown - Past Medical History & Family History Past Medical History?: Yes - Past Social History Smoking Status: Never Smoked - CARDIAC Hx Congestive Heart Failure: Yes Hx Hypertension: Yes - PULMONARY Hx Respiratory Disorders: No - NEUROLOGICAL Hx Neurological Disorder: No - HEENT Hx HEENT Problems: Yes Hx Cataracts: Yes (left eye no sx) - RENAL Hx Chronic Kidney Disease: Yes Hx Kidney Stones: Yes - ENDOCRINE/METABOLIC Hx Endocrine Disorders: No - HEMATOLOGICAL/ONCOLOGICAL Hx Blood Transfusions: No Hx Blood Transfusion Reaction: No - INTEGUMENTARY Hx Dermatological Problems: Yes (BILATERAL LEG EDEMA MAINLY TO FEET MORE TO LEFT.) Other/Comment: ble skin tight/edema - MUSCULOSKELETAL/RHEUMATOLOGICAL Hx Musculoskeletal Disorders: No Hx Falls: No - GASTROINTESTINAL Hx Gastrointestinal Disorders: Yes (DIVERTICULOSIS,HEMORRHOID,GI BLEED,RECTAL BLEED) Hx Gall Bladder Disease: Yes (gallstones) Hx Gastroesophageal Reflux: Yes Other/Comment: rectal bleed - GENITOURINARY/GYNECOLOGICAL Hx Genitourinary Disorders: Yes Hx Urinary Tract Infection: Yes - PSYCHIATRIC Hx Psychophysiologic Disorder: No Hx Substance Use: No - SURGICAL HISTORY Hx Surgeries: Yes - ANESTHESIA Hx Anesthesia Reactions: Yes Hx Malignant Hyperthermia: Yes Meds Allergies/Adverse Reactions: Allergies Allergy/AdvReac Type Severity Reaction Status Date / Time No Known Allergies Allergy Verified 07/30/16 15:58 - Medications Medications: Current Medications Acetaminophen (Tylenol 650mg/20.3ml Solution Ud) 320 mg PO Q4 PRN PRN Reason: Fever >100.4 F Last Admin: 08/13/16 16:32 Dose: 320 mg Albumin Human (Albumin Human 25% (12.5 Gm/50 Ml)) 25 gm IV BID [facility] Stop: 08/16/16 18:01 Amiodarone HCl (Cordarone) 200 mg PO DAILY [facility] Last Admin: 08/15/16 11:27 Dose: 200 mg Aspirin (Aspirin Chewable) 81 mg PO DAILY [facility] Last Admin: 08/15/16 11:27 Dose: 81 mg Atorvastatin Calcium (Lipitor) 40 mg PO DIN [facility] Last Admin: 08/14/16 17:58 Dose: Not Given Benzocaine/Menthol (Cepacol Sore Throat) 1 burton MT Q2H PRN PRN Reason: Sore Throat Last Admin: 08/08/16 10:10 Dose: 1 burton Calcium Carbonate (Oscal) 500 mg PO DAILY [facility] Last Admin: 08/15/16 11:27 Dose: 500 mg Cholecalciferol (Vitamin D) 2,000 iu PO DAILY [facility] Last Admin: 08/15/16 11:27 Dose: 2,000 iu Clonidine HCl (Catapres Tts1 0.1 Mg/24 Hr) 1 patch TD Q7D@1000 [facility] Last Admin: 08/14/16 10:37 Dose: Not Given Digoxin (Lanoxin) 0.25 mg IVP 1400 [facility] Last Admin: 08/14/16 15:37 Dose: Not Given Donepezil HCl (Aricept) 10 mg PO HS [facility] Last Admin: 08/14/16 22:19 Dose: Not Given Enoxaparin Sodium (Lovenox) 60 mg SC Q12 JENNIFER PRN Reason: Protocol Last Admin: 08/15/16 11:25 Dose: 60 mg Ferrous Sulfate (Feosol) 324 mg PO TID [facility] Last Admin: 08/15/16 11:26 Dose: Not Given Hydralazine HCl (Apresoline) 10 mg IVP Q6 PRN PRN Reason: Other Last Admin: 08/10/16 00:15 Dose: 10 mg Metronidazole (Flagyl) 500 mg in 100 mls @ 100 mls/hr IVPB Q8 [facility] PRN Reason: Protocol Last Admin: 08/15/16 07:42 Dose: Not Given Vancomycin HCl (Vancomycin 1gm) 1 g in 250 mls @ 167 mls/hr IVPB Q12 JENNIFER PRN Reason: Protocol Last Admin: 08/13/16 18:25 Dose: Not Given Dextrose/Sodium Chloride (Dextrose 5%/0.9% Ns 1000 Ml) 1,000 mls @ 50 mls/hr IV .Q20H [facility] Last Admin: 08/13/16 12:19 Dose: Not Given diltiaZEM IVPB 100mg in NS (Cardizem 100mg In Ns) 100 mls @ 6 mls/hr IV .[id number] PRN; Protocol; 6 MG/HR PRN Reason: TITRATE PER MD ORDER Metoprolol Tartrate (Lopressor) 50 mg PO BID [facility] Last Admin: 08/13/16 12:18 Dose: Not Given Metoprolol Tartrate (Lopressor) 5 mg IVP Q6 PRN PRN Reason: Heart rate Last Admin: 08/13/16 13:54 Dose: 5 mg Morphine Sulfate (Morphine) 0.5 mg IVP Q4H PRN PRN Reason: Pain, moderate (4-7) Last Admin: 08/13/16 07:34 Dose: 0.5 mg Ondansetron HCl (Zofran Inj) 4 mg IVP Q6 PRN PRN Reason: Nausea/Vomiting Pantoprazole Sodium (Protonix Ec Tab) 20 mg PO ACB [facility] Last Admin: 08/15/16 08:03 Dose: Not Given Physical Exam - Constitutional Appears: Cachectic, Chronically Ill - Head Exam Head Exam: NORMAL INSPECTION - Eye Exam Eye Exam: Normal appearance, PERRL - ENT Exam ENT Exam: Mucous Membranes Moist, Normal Exam - Respiratory Exam Respiratory Exam: Decreased Breath Sounds - Cardiovascular Exam Cardiovascular Exam: Irregular Rhythm, +S1, +S2 - GI/Abdominal Exam Additional comments: right and left MO's patent,draining sero- sanguineous fluid, colostomy stoma pink,draining liquid stool - Neurological Exam Neurological exam: Altered - Skin Skin Exam: Dry Additional comments: generalized anasarca - Additional Findings Additional findings: Palliative performance scale raing 30% Results - Vital Signs Recent Vital Signs: Last Vital Signs Temp 98.2 F 08/15/16 12:00 Pulse 75 08/15/16 12:00 Resp 18 08/15/16 12:00 BP 90/68 L 08/15/16 12:00 Pulse Ox 96 08/14/16 06:00 - Labs Result Diagrams: 08/14/16 06:01 08/14/16 06:01 Assessment & Plan - Assessment and Plan (Free Text) Assessment: 86 year old female admitted with leukocytosis, abdominal abscess,diverticulitis s/p sigmoid resection and colostomy,KRIS,NSTEMI, atrial fibrillation with RVR, anemia. The patient was alert and verbal in the past. Yesterday, she began refusing to eat and take oral medications. She also refused lab work and and vital signs this morning. Nurses note of 08/14 indicted that patient stated she did not want to be "put in a mcc". Today she is very lethargic and non communicative. I spoke with granddaughter Ryland via phone. She visited her grandmother earlier in the day and is aware of situation. Ryland indicted that she was hopeful her grandmother would rebound from current illness but admits to seeing a change in her grandmother's overall condition. Granddaughter slowly recognizing that the patient's health may not improve and that goals of care may need to be reconsidered. We also discussed patient's resuscitation status. Benefits and burdens of aggressive resuscitation ( CPR/intubation) explained. Ryland expressed that her grandmother would not want to be kept alive by artificial measures, including feeding tube. Ryland wants to discuss options for advance care planning further with me. We are scheduled to meet tomorrow. Time spent in discussion with grander regarding goals of care and advance care planning, 30 minutes Plan: Will assist with establishing goals of care and advance care planning.
[2016-08-15 15:23] LABS: ALB/GLOB RATIO 0.7 (1.1-1.8); BILIRUBIN,TOTAL 0.5 mg/dL (0.2-1.3); CALCIUM 7.2 mg/dL (8.4-10.5); MAGNESIUM 1.6 mg/dL (1.7-2.2); POTASSIUM 4.2 mmol/L (3.6-5.0); TOTAL PROTEIN 4.3 g/dL (5.8-8.3)
[2016-08-15 15:31] LABS: INR 1.14 (0.93-1.08); PARTIAL THROMBOPLASTIN TIME 34.8 Seconds (23.7-30.8)
--- NOTE | 2016-08-15 15:34 | CT ---
PROCEDURE: CT Abdomen and Pelvis without intravenous contrast HISTORY: post carcamo w/ colostomy. Evaluate for abscess COMPARISON: 06/17/2016. TECHNIQUE: Technique. Contrast Dose: Radiation dose: Total exam DLP = 1064 mGy-cm. This CT exam was performed using one or more of the following dose reduction techniques: Automated exposure control, adjustment of the mA and/or kV according to patient size, and/or use of iterative reconstruction technique. FINDINGS: LOWER THORAX: Large bilateral pleural effusions are noted as well as a pericardial effusion.. LIVER: Unremarkable. No gross lesion or ductal dilatation. GALLBLADDER AND BILE DUCTS: Unremarkable. PANCREAS: Unremarkable. No gross lesion or ductal dilatation. SPLEEN: Unremarkable. ADRENALS: Unremarkable. No mass. KIDNEYS AND URETERS: There is a large acute perinephric acute hematoma measuring roughly 10 by 8 centimeters with displacement of the left kidney anteriorly. There is associated perinephric infiltration. VASCULATURE: Unremarkable. No aortic aneurysm. BOWEL: Status post Brad's pouch placement with left lower quadrant and right lower quadrant drainage tubes in place.. No obstruction. No gross mural thickening. APPENDIX: Unremarkable. Normal appendix. PERITONEUM: Minimal free fluid in the pelvis as well as extensive anasarca with infiltration of the subcutaneous fat. LYMPH NODES: Unremarkable. No enlarged lymph nodes. BLADDER: Unremarkable. REPRODUCTIVE: Unremarkable. BONES: No acute fracture. OTHER FINDINGS: None. IMPRESSION: Large acute left perinephric hematoma measuring roughly 10 x 8 centimeters displacement of the left kidney anteriorly. Large bilateral pleural effusions and pericardial effusion. Nurse's station was notified of these findings at the time of the dictation.
[2016-08-15] MEDS ORDERED: Lactated Ringer's 1,000 ML IV SCH (15:39)
[2016-08-15] MEDS ORDERED: Protamine 50mg/5mL Inj IV ONE (15:50)
[2016-08-15 16:45] LABS: ADD MANUAL DIFF? NO
[2016-08-15 16:48] LABS: BASO # 0.01 K/mm3 (0.0-2.0); GRAN % 85.6 % (50.0-68.0); LYMPH # 1.4 (1.2-3.4); LYMPH % 6.4 % (22.0-35.0); MEAN CORPUSCULAR HEMOGLOBIN 31.5 pg (25.0-35.0); MEAN CORPUSCULAR HGB CONC 33.5 g/dl (31.0-37.0); MEAN PLATELET VOLUME 9.2 fl (7.0-11.0); MONO # 1.8 (0.1-0.6); PLATELET COUNT 317 10^3/uL (120.0-450.0); RED CELL DISTRIBUTION WIDTH 19.3 % (11.5-14.5); WHITE BLOOD COUNT 21.9 10^3/ul (4.5-11.0)
[2016-08-15 16:49] LABS: HEMATOCRIT 17.3 % (36.0-48.0)
[2016-08-15 16:51] LABS: VENOUS BLOOD GAS BASE EXCESS -5.2 mmol/L (0.0-2.0); VENOUS BLOOD PH 7.41 (7.32-7.43)
[2016-08-15] MEDS: Digoxin 500 mcg/2ml (0.5 mg/2ml) Inj IVP SCH (17:38)
[2016-08-15 17:56] LABS: NEUTROPHIL 89 % (50.0-70.0)
[2016-08-15 18:00] LABS: PLATELET ESTIMATE NORMAL (NORMAL)
[2016-08-15 18:04] LABS: ANISOCYTOSIS SLIGHT; HYPOCHROMIA SLIGHT; POLYCHROMASIA SLIGHT; TEAR DROP CELLS SLIGHT
[2016-08-15 18:05] LABS: BURR CELLS SLIGHT
--- NOTE | 2016-08-15 18:06 | PN ---
DATE: 08/15/2016 The patient seen and examined at bedside. She is very somnolent. She is responding to touch and painful stimuli with opening her eyes. PHYSICAL EXAMINATION: VITAL SIGNS: Heart rate 97, oxygen saturation 90% on 2 liters nasal cannula, respiratory rate 30, blood pressure varies between 90 - 99. HEAD AND NECK: Atraumatic. LUNGS: Clear to auscultation bilaterally. HEART: Regular rate and rhythm. S1, S2 normal. ABDOMEN: Soft, nontender, nondistended. The patient has colostomy bag which is filled with air and fecal matter. She also has 2 MO in intraperitoneal space which she has 50-75 mL of sanguinous fluid. MUSCULOSKELETAL: 1+ bilateral pedal and ankle edema. NEUROLOGIC: The patient very sedated. SKIN: Moist. PSYCHIATRIC: The patient is very somnolent. LABORATORY DATA: Pending. MEDICATIONS: Tylenol p.r.n., albumin, amiodarone p.o., Lipitor, Cardizem drip on hold, clonidine patch on hold, digoxin, Aricept, Lovenox on hold, Flagyl, hydralazine p.r.n., metoprolol p.r.n. and metoprolol p.o. on hold, Zofran p.r.n. , Protonix, protamine, vancomycin. CAT scan of the abdomen and pelvis showed a large acute left perinephric hematoma measuring 10/8 cm displacement of the left kidney anteriorly, large bilateral pleural effusions and pericardial effusion. Lab also notified us about hemoglobin 5. ASSESSMENT AND PLAN: This is an 86-year-old lady who is in hemorrhagic shock secondary to perinephric bleeding in the setting of iatrogenic coagulopathy. At present time, we will proceed with transfusion of blood products at 1:1:1 ratio to maintain platelet count above 100 and avoiding dilutional coagulopathy. The patient is severely hypoalbuminemic and we will continue with fluid resuscitation with isoncotic albumin as well. We will get a VBG with elshock panel and will avoid acidosis. The patient is acidotic, will start bicarbonate drip as well. Unfortunately mental status of the patient is deteriorating. I spoke with the patient's granddaughter who is deciding about advanced directives. Surgical team was notified. Urology team was notified. Protamine 0.5 mg/unit of Lovenox dose that was given. We will continue to target euvolemia, euglycemia, normothermia and oxygen saturation more than 90%. We will continue with deep venous thrombosis and gastrointestinal prophylaxis. ccm time 40 min Beau Castro MD cc: [id number] TT: 08/15/2016 18:06:14 Confirmation # [id number] Dictation # [id number] MTDD
--- NOTE | 2016-08-15 18:32 | CON ---
DATE: 08/15/2016 HISTORY OF PRESENT ILLNESS: Shortly, the patient is an 86-year-old -[place] female with hist ory of multiple medical issues. The patient was admitted on the medical side for evaluation of foul smelling, purulent drainage from the side of the abdomen. The patient has a history of diverticular abscess and drainage. The patient stayed in the hospital since 07/30. Psych consult was involved bec [place] the patient was refusing treatment lately, was refusing to eat and medical team needs to have ev aluation for capacity to refuse to have treatment as well as possible depression. This selling underwriter attemp avila to speak to the patient today. The patient presented to be lethargic, was able to open her eyes, but falling back asleep. The patient does not know what is the name of the hospital, but she knows that she is in the hospital. The patient was not able to provide any history. Collateral informatio n was obtained from the patient's granddaughter, who is next to the patient. The patient gave permis tian. The patient granddaughter's name is Ryland Doan, phone number [phone]. As per Ryland the patient does not have history of mental illness, does not have history of suicidal attempts and does not have history of being admitted to the psychiatric inpatient unit. The patient was doing fine up until the patient was admitted to the medical side. At present moment, the patient expressed her wis h to and being tired of being in the hospital. There is no advance directives. The patient does not have P.O.A. and patient at present moment is not in the right state of mind where she could appo int anyone to be her power of assistant county attorney. VITAL SIGNS: Temperature 98.2, pulse is 113, blood pressure 90/68, respirations 18. MEDICATIONS: Reviewed. The patient is on Tylenol, amiodarone, aspirin, Lipitor. The patient also i s on Oscal, vitamin D, clonidine, digoxin, Cardizem, Aricept, Lovenox, Feosol, Apresoline, Lopressor, Flagyl, morphine, Protonix and vancomycin. The patient was seen by palliative care today. Notes reviewed. The patient was not able to participate because patient is having altered mental status and patient mook atemahin on was transferred to the CCU. MENTAL STATUS EXAMINATION: As this selling underwriter described above, patient was falling asleep during the int erview. Was able to open her eyes, mumbling something, which is very hard to understand. This write r was not able to assess depression, suicidal ideations because patient was not participating in inte rview. IMPRESSION: Most likely the patient is in delirium stage. Also, the patient has multiple medical is sues. At present moment, the patient was transferred to ICU. PLAN: Continue current management. This selling underwriter was not able to evaluate capacity to make decision t o refuse treatment. The patient deemed to be in her delirium stage, and patient does not have advanc ed directives and does not have power of assistant county attorney. The patient's granddaughter is willing to be a po wer of assistant county attorney, but the patient was not able to participate in interview and appoint her to be a pow er of assistant county attorney. The patient was seen by palliative care. The patient was transferred to ICU. When the patient's mental status is improving, this selling underwriter will be gladly helping medical team to assess c apacity, but at present moment, the patient has altered mental status and automatically lacks capacit y to make decisions for herself. Should you have any questions, give me a call back. Thank you very much for letting me participate in the care of your patient. Alisha Palacio MD cc: [id number] TT: 08/15/2016 18:31:52 Confirmation # [id number] Dictation # [id number] [email or web address]
[2016-08-15] MEDS: Albumin Human 5% (12.5 gm/250 ml) IV SCH ×2 (19:48→21:25)
[2016-08-15] MEDS ORDERED: Magnesium Sulfate 2 GM in Sodium Chloride 0.9% 100 ML IV ONE (21:07)
[2016-08-15] MEDS: Vancomycin 1gm in NS 250ml 1 G/250 ML BAG IVPB SCH (22:19)
[2016-08-15 23:54] LABS: HEMATOCRIT 23.4 % (36.0-48.0)
[2016-08-16] MEDS: Albumin Human 5% (12.5 gm/250 ml) IV SCH (00:17)
[2016-08-16] MEDS: metroNIDAZOLE IV 500 mg/100 ml 500 MG/100 ML BAG IVPB SCH ×3 (05:28→21:59)
[2016-08-16] MEDS ORDERED: Lactated Ringer's 1,000 ML IV SCH (06:24)
[2016-08-16 06:39] LABS: ADD MANUAL DIFF? NO
[2016-08-16 06:56] LABS: VENOUS BLOOD GAS BASE EXCESS -4.4 mmol/L (0.0-2.0)
[2016-08-16 07:02] LABS: BILIRUBIN,TOTAL 0.9 mg/dL (0.2-1.3); CALCIUM 7.6 mg/dL (8.4-10.5); MAGNESIUM 2.1 mg/dL (1.7-2.2); PHOSPHOROUS 3.2 mg/dL (2.5-4.5); POTASSIUM 3.9 mmol/L (3.6-5.0)
[2016-08-16 07:25] LABS: BASO # 0.01 K/mm3 (0.0-2.0); BASO % 0.1 % (0.0-3.0); GRAN % 83.5 % (50.0-68.0); HEMATOCRIT 24.2 % (36.0-48.0); LYMPH # 1.5 (1.2-3.4); LYMPH % 8.7 % (22.0-35.0); MEAN CELL VOLUME 90.6 fL (80.0-105.0); MEAN CORPUSCULAR HEMOGLOBIN 30.7 pg (25.0-35.0); MEAN CORPUSCULAR HGB CONC 33.9 g/dl (31.0-37.0); MEAN PLATELET VOLUME 9.3 fl (7.0-11.0); MONO # 1.3 (0.1-0.6); MONO % 7.7 % (1.0-6.0); PLATELET COUNT 231 10^3/uL (120.0-450.0); WHITE BLOOD COUNT 17.1 10^3/ul (4.5-11.0)
--- NOTE | 2016-08-16 08:24 | CP.PCM.PN ---
Subjective - Date & Time of Evaluation Date of Evaluation: 08/16/16 Time of Evaluation: 08:20 - Subjective Subjective: Surgery: Dr. Keita Patient in ICU. Patient more easily awoken today. Patient received 2 units PRBC and 1 unit FFP last night. Per nursing fortino drain fluid output has been 400cc/ 24hr on L and 200cc/24hr on right. Fluid has become more serous. Urine output has been 125cc/12hr. Objective - Vital Signs/Intake and Output Vital Signs (last 24 hours): Temp Pulse Resp BP Pulse Ox 97.6 F 98 H 29 H 144/69 100 08/16/16 04:43 08/16/16 06:30 08/16/16 06:30 08/16/16 06:00 08/16/16 06:30 Intake and Output: 08/16/16 08/16/16 06:59 18:59 Intake Total 1625 Output Total 700 Balance 925 - Medications Medications: Current Medications Acetaminophen (Tylenol 650mg/20.3ml Solution Ud) 320 mg PO Q4 PRN PRN Reason: Fever >100.4 F Last Admin: 08/13/16 16:32 Dose: 320 mg Albumin Human (Albumin Human 25% (12.5 Gm/50 Ml)) 25 gm IV BID [facility] Stop: 08/16/16 18:01 Amiodarone HCl (Cordarone) 200 mg PO DAILY [facility] Last Admin: 08/15/16 11:27 Dose: 200 mg Aspirin (Aspirin Chewable) 81 mg PO DAILY [facility] Last Admin: 08/15/16 11:27 Dose: 81 mg Atorvastatin Calcium (Lipitor) 40 mg PO DIN [facility] Last Admin: 08/15/16 17:22 Dose: Not Given Benzocaine/Menthol (Cepacol Sore Throat) 1 [place] Q2H PRN PRN Reason: Sore Throat Last Admin: 08/08/16 10:10 Dose: 1 [place] Calcium Carbonate (Oscal) 500 mg PO DAILY [facility] Last Admin: 08/15/16 11:27 Dose: 500 mg Cholecalciferol (Vitamin D) 2,000 iu PO DAILY [facility] Last Admin: 08/15/16 11:27 Dose: 2,000 iu Clonidine HCl (Catapres Tts1 0.1 Mg/24 Hr) 1 patch TD Q7D@1000 [facility] Last Admin: 08/14/16 10:37 Dose: Not Given Digoxin (Lanoxin) 0.25 mg IVP 1400 [facility] Last Admin: 08/15/16 17:38 Dose: Not Given Donepezil HCl (Aricept) 10 mg PO HS [facility] Last Admin: 08/15/16 22:14 Dose: Not Given Enoxaparin Sodium (Lovenox) 60 mg SC Q12 [facility]ENN[facility]ER PRN Reason: Protocol Last Admin: 08/15/16 11:25 Dose: 60 mg Ferrous Sulfate (Feosol) 324 mg PO TID [facility] Last Admin: 08/15/16 17:27 Dose: Not Given Hydralazine HCl (Apresoline) 10 mg IVP Q6 PRN PRN Reason: Other Last Admin: 08/10/16 00:15 Dose: 10 mg Metronidazole (Flagyl) 500 mg in 100 mls @ 100 mls/hr IVPB Q8 JENNIFER PRN Reason: Protocol Last Admin: 08/16/16 05:28 Dose: 100 mls/hr Vancomycin HCl (Vancomycin 1gm) 1 g in 250 mls @ 167 mls/hr IVPB Q12 JENNIFER PRN Reason: Protocol Last Admin: 08/15/16 22:19 Dose: 167 mls/hr Dextrose/Sodium Chloride (Dextrose 5%/0.9% Ns 1000 Ml) 1,000 mls @ 50 mls/hr IV .Q20H [facility] Last Admin: 08/13/16 12:19 Dose: Not Given diltiaZEM IVPB 100mg in NS (Cardizem 100mg In Ns) 100 mls @ 6 mls/hr IV .[id number] PRN; Protocol; 6 MG/HR PRN Reason: TITRATE PER MD ORDER Last Admin: 08/15/16 14:38 Dose: 6 mg/hr, 6 mls/hr Lactated Ringer's (Lactated Ringer's) 1,000 mls @ 75 mls/min IV .Q14M [facility] Metoprolol Tartrate (Lopressor) 50 mg PO BID [facility] Last Admin: 08/13/16 12:18 Dose: Not Given Metoprolol Tartrate (Lopressor) 5 mg IVP Q6 PRN PRN Reason: Heart rate Last Admin: 08/13/16 13:54 Dose: 5 mg Morphine Sulfate (Morphine) 0.5 mg IVP Q4H PRN PRN Reason: Pain, moderate (4-7) Last Admin: 08/13/16 07:34 Dose: 0.5 mg Ondansetron HCl (Zofran Inj) 4 mg IVP Q6 PRN PRN Reason: Nausea/Vomiting Pantoprazole Sodium (Protonix Ec Tab) 20 mg PO ACB [facility]ENNIFER Last Admin: 08/15/16 08:03 Dose: Not Given - Labs Labs: 08/16/16 06:30 08/16/16 06:30 PT 12.3 Seconds (9.9-11.8) H 08/15/16 14:50 INR 1.14 (0.93-1.08) H 08/15/16 14:50 APTT 34.8 Seconds (23.7-30.8) H 08/15/16 14:50 - Constitutional Appears: No Acute Distress, Chronically Ill - Head Exam Head Exam: ATRAUMATIC, NORMOCEPHALIC - ENT Exam ENT Exam: Mucous Membranes Moist - Respiratory Exam Respiratory Exam: NORMAL BREATHING PATTERN. absent: Respiratory Distress - Cardiovascular Exam Cardiovascular Exam: Tachycardia, REGULAR RHYTHM - GI/Abdominal Exam GI & Abdominal Exam: Soft. absent: Distended, Tenderness Additional comments: abdominal wound dressing CDI. Ostomy is patent w/ brown soft stool output. right and left fortino drain fluid is serous-sanguineous. output as noted above. - Extremities Exam Extremities Exam: Normal Inspection. 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 Bossman Paez PGY1
--- NOTE | 2016-08-16 09:59 | CP.CCUPN ---
<RyneHenry sanford - Last Filed: 08/16/16 13:48> CCU Subjective - Physician Review Events Since Last Encounter (Free Text): This patient received 2 units of PRBC and 1 Unit of FFP overnight. Patient remained normotensive with mild tachycardia 110 +/- 10 bpm. 08/16/16 09:52 Subjective (Free Text): Patient is drowsy but arousable, however she is not answering questions. 08/16/16 13:12 CCU Objective - Vital Signs / Intake & Output Vital Signs (Last 4 hours): Vital Signs Pulse Resp BP Pulse Ox 08/16/16 06:30 98 H 29 H 100 08/16/16 06:00 97 H 17 144/69 100 Intake and Output (Last 8hrs): Intake & Output 08/15/16 08/16/16 08/16/16 22:59 06:59 14:59 Intake Total 750 1250 Output Total 600 400 Balance 150 850 Weight 174 lb Intake: IV 1250 Right Internal Jugular 1250 Oral 0 Blood Product 640 Red Blood Cells Cpd As1 325 Lr Unit [id number] Red Blood Cells Cpd As1 315 Lr Unit [id number] Other 110 Red Blood Cells Cpd As1 50 Lr Unit [id number] Red Blood Cells Cpd As1 60 Lr Unit [id number] Output: Drainage 600 250 Left Abdomen 110 Right Abdomen 140 left abdomen 400 right abdomen 200 Urine 150 Urethral (Cote) 150 Other: Voiding Method Indwelling Catheter # Bowel Movements 1 - Physical Exam Head: Positive for: Atraumatic Pupils: Positive for: PERRL Extroacular Muscles: Positive for: EOMI Conjunctiva: Positive for: Normal Ears: Positive for: Normal Mouth: Positive for: Moist Mucous Membranes Nose (External): Positive for: Atraumatic Neck: Positive for: Normal Range of Motion (R CVC catheter) Respiratory/Chest: Positive for: Clear to Auscultation, Good Air Exchange. Negative for: Respiratory Distress, Accessory Muscle Use Cardiovascular: Positive for: Regular Rate and Rhythm, Normal S1, S2, Tachycardic. Negative for: Murmurs Abdomen: Positive for: Tenderness (minimal along incision sites and around drain insertion sites, B/L lower quadrant Fortino drains in place with scant serosanguinous output), Ostomy Tubes (Stoma with brown stool output, stoma pink , patent, non bloody, 2 fortino drains present with serosanguinous fluid. ), Mass/ Organomegaly. Negative for: Distention, Normal Bowel Sounds (hypoactive), Peritoneal Signs, Rebound Back: Positive for: Normal Inspection Upper Extremity: Positive for: Edema (B/L, minimal). Negative for: Normal Inspection Lower Extremity: Positive for: Edema, Tenderness (B/L). Negative for: Normal Inspection Neurological: Positive for: GCS=15, CN II-XII Intact Skin: Positive for: Warm, Dry, Normal Color. Negative for: Rashes Psychiatric: Positive for: Alert, Oriented x 3, Normal Concentration. Negative for: Normal Insight (demented) - Medications Active Medications: Active Medications Generic Name Dose Route Start Last Admin Trade Name Freq PRN Reason Stop Dose Admin Acetaminophen 320 mg 08/08/16 10:03 08/13/16 16:32 Tylenol 650mg/20.3ml Solution Ud PO 320 mg Q4 PRN Administration Fever >100.4 F Albumin Human 25 gm 08/15/16 18:00 Albumin Human 25% (12.5 Gm/50 Ml) IV 08/16/16 18:01 BID JENNIFER Amiodarone HCl 200 mg 08/13/16 10:00 08/15/16 11:27 Cordarone PO 200 mg DAILY JENNIFER Administration Aspirin 81 mg 08/10/16 10:00 08/15/16 11:27 Aspirin Chewable PO 81 mg DAILY JENNIFER Administration Atorvastatin Calcium 40 mg 07/31/16 17:00 08/15/16 17:22 Lipitor PO Not Given DIN JENNIFER Benzocaine/Menthol 1 burton 08/07/16 14:23 08/08/16 10:10 Cepacol Sore Throat MT 1 burton Q2H PRN Administration Sore Throat Calcium Carbonate 500 mg 08/02/16 10:00 08/15/16 11:27 Oscal PO 500 mg DAILY JENNIFER Administration Cholecalciferol 2,000 iu 08/05/16 10:00 08/15/16 11:27 Vitamin D PO 2,000 iu DAILY [facility] Administration Clonidine HCl 1 patch 08/07/16 15:00 08/14/16 10:37 Catapres Tts1 0.1 Mg/24 Hr TD Not Given Q7D@1000 [facility] Digoxin 0.25 mg 08/13/16 14:00 08/15/16 17:38 Lanoxin IVP Not Given 1400 [facility] Donepezil HCl 10 mg 07/31/16 22:00 08/15/16 22:14 Aricept PO Not Given HS [facility] Enoxaparin Sodium 60 mg 08/10/16 11:00 08/15/16 11:25 Lovenox SC 60 mg Q12 [facility] Administration Protocol Ferrous Sulfate 324 mg 07/31/16 10:00 08/15/16 17:27 Feosol PO Not Given TID [facility] Hydralazine HCl 10 mg 08/08/16 15:44 08/10/16 00:15 Apresoline IVP 10 mg Q6 PRN Administration Other Metronidazole 500 mg in 100 mls @ 100 mls/hr 07/31/16 06:00 08/16/16 05:28 Flagyl IVPB 100 mls/hr Q8 [facility] Administration Protocol Vancomycin HCl 1 g in 250 mls @ 167 mls/hr 08/10/16 13:30 08/15/16 22:19 Vancomycin 1gm IVPB 167 mls/hr Q12 [facility] Administration Protocol Dextrose/Sodium Chloride 1,000 mls @ 50 mls/hr 08/12/16 09:00 08/13/16 12:19 Dextrose 5%/0.9% Ns 1000 Ml IV Not Given .Q20H JENNIFER diltiaZEM IVPB 100mg in NS 100 mls @ 6 mls/hr 08/15/16 00:26 08/15/16 14:38 Cardizem 100mg In Ns IV 6 mg/hr .[id number] PRN 6 mls/hr TITRATE PER MD ORDER Administration Protocol 6 MG/HR Lactated Ringer's 1,000 mls @ 75 mls/min 08/16/16 06:24 Lactated Ringer's IV .Q14M [facility] Metoprolol Tartrate 50 mg 07/31/16 10:00 08/13/16 12:18 Lopressor PO Not Given BID [facility] Metoprolol Tartrate 5 mg 08/13/16 11:34 08/13/16 13:54 Lopressor IVP 5 mg Q6 PRN Administration Heart rate Morphine Sulfate 0.5 mg 08/10/16 16:29 08/13/16 07:34 Morphine IVP 0.5 mg Q4H PRN Administration Pain, moderate (4-7) Ondansetron HCl 4 mg 08/06/16 12:24 Zofran Inj IVP Q6 PRN Nausea/Vomiting Pantoprazole Sodium 20 mg 07/31/16 07:30 08/15/16 08:03 Protonix Ec Tab PO Not Given ACB JENNIFER - Patient Studies Lab Studies: Microbiology Studies 07/31/16 14:10 Mycobacterial Culture - Preliminary Other: Please Indicate 08/10/16 09:30 Blood Culture - Final Blood-Venous NO GROWTH AFTER 5 DAYS Gram Stain - Final TEST NOT PERFORMED Lab Studies 08/16/16 08/16/16 08/16/16 Range/Units 06:30 06:30 06:30 WBC 17.1 H D (4.5-11.0) 10^3/ul RBC 2.67 L (3.5-6.1) 10^6/uL Hgb 8.2 L (12.0-16.0) gm/dL Hct 24.2 L (36.0-48.0) % MCV 90.6 (80.0-105.0) fL MCH 30.7 (25.0-35.0) pg MCHC 33.9 (31.0-37.0) g/dl RDW 17.0 H (11.5-14.5) % Plt Count 231 (120.0-450.0) 10^3/uL MPV 9.3 (7.0-11.0) fl Gran % 83.5 H (50.0-68.0) % Lymph % (Auto) 8.7 L (22.0-35.0) % [place] % (Auto) 7.7 H (1.0-6.0) % Eos % (Auto) 0.0 L (1.5-5.0) % Baso % (Auto) 0.1 (0.0-3.0) % Gran # 14.30 H (1.4-6.5) Lymph # 1.5 (1.2-3.4) [place] # 1.3 H (0.1-0.6) Eos # 0.0 (0.0-0.7) Baso # 0.01 (0.0-2.0) K/mm3 Neutrophils % (Manual) (50.0-70.0) % Lymphocytes % (Manual) (22.0-35.0) % Monocytes % (Manual) (1.0-6.0) % Platelet Evaluation (NORMAL) Polychromasia Hypochromasia Anisocytosis (manual) Macrocytosis (manual) Tear Drop Cells Alejandro Cells PT (9.9-11.8) Seconds INR (0.93-1.08) APTT (23.7-30.8) Seconds pO2 49 (30-55) mm/Hg VBG pH 7.40 (7.32-7.43) VBG pCO2 32.0 L (40-60) VBG HCO3 19.8 L (21-28) mmol/l VBG Total CO2 20.8 L (22-28) mmol.L VBG O2 Sat (Calc) 89.6 H (40-65) % VBG Base Excess -4.4 L (0.0-2.0) mmol/L VBG Potassium 3.9 (3.6-5.2) mmol/L Glucose 85 (65-105) mg/dl Lactate 0.8 (0.7-2.1) mmol/L FiO2 21.0 % Sodium 139 140.0 (132-148) mmol/L Potassium 3.9 (3.6-5.0) mmol/L Chloride 114 H 114.0 H (98-107) mmol/L Carbon Dioxide 19 L (21-33) mmol/L Anion Gap 10 (10-20) BUN 26 H (7-21) mg/dL Creatinine 1.2 (0.5-1.4) mg/dL Est GFR ( Amer) 52 Est GFR (Non-Af Amer) 43 Random Glucose 81 (70-110) mg/dL Calcium 7.6 L (8.4-10.5) mg/dL Phosphorus 3.2 (2.5-4.5) mg/dL Magnesium 2.1 (1.7-2.2) mg/dL Total Bilirubin 0.9 (0.2-1.3) mg/dL AST 20 (15-39) U/L ALT 30 (7-56) U/L Alkaline Phosphatase 92 (38-133) U/L Total Protein 5.0 L (5.8-8.3) g/dL Albumin 2.5 L (3.0-4.8) g/dL Globulin 2.5 gm/dL Albumin/Globulin Ratio 1.0 L (1.1-1.8) Venous Blood Potassium 3.9 (3.6-5.2) mmol/L Blood Type Antibody Screen Crossmatch BBK History Checked 08/15/16 08/15/16 08/15/16 Range/Units 23:20 16:40 16:40 WBC 21.9 H (4.5-11.0) 10^3/ul RBC 1.84 L (3.5-6.1) 10^6/uL Hgb 8.0 L D 5.8 L* D (12.0-16.0) gm/dL Hct 23.4 L 17.3 L* (36.0-48.0) % MCV 94.0 (80.0-105.0) fL MCH 31.5 (25.0-35.0) pg MCHC 33.5 (31.0-37.0) g/dl RDW 19.3 H (11.5-14.5) % Plt Count 317 (120.0-450.0) 10^3/uL MPV 9.2 (7.0-11.0) fl Gran % 85.6 H (50.0-68.0) % Lymph % (Auto) 6.4 L (22.0-35.0) % [place] % (Auto) 8.0 H (1.0-6.0) % Eos % (Auto) 0.0 L (1.5-5.0) % Baso % (Auto) 0.0 (0.0-3.0) % Gran # 18.70 H (1.4-6.5) Lymph # 1.4 (1.2-3.4) [place] # 1.8 H (0.1-0.6) Eos # 0.0 (0.0-0.7) Baso # 0.01 (0.0-2.0) K/mm3 Neutrophils % (Manual) 89 H (50.0-70.0) % Lymphocytes % (Manual) 10 L (22.0-35.0) % Monocytes % (Manual) 1 (1.0-6.0) % Platelet Evaluation Normal (NORMAL) Polychromasia Slight Hypochromasia Slight Anisocytosis (manual) Slight Macrocytosis (manual) Slight Tear Drop Cells Slight [place] Cells Slight PT (9.9-11.8) Seconds INR (0.93-1.08) APTT (23.7-30.8) Seconds pO2 35 (30-55) mm/Hg VBG pH 7.41 (7.32-7.43) VBG pCO2 30.0 L (40-60) VBG HCO3 19.0 L (21-28) mmol/l VBG Total CO2 19.9 L (22-28) mmol.L VBG O2 Sat (Calc) 69.5 H (40-65) % VBG Base Excess -5.2 L (0.0-2.0) mmol/L VBG Potassium 4.1 (3.6-5.2) mmol/L Glucose 118 H (65-105) mg/dl Lactate 2.1 (0.7-2.1) mmol/L FiO2 21.0 % Sodium 139.0 (132-148) mmol/L Potassium (3.6-5.0) mmol/L Chloride 114.0 H (98-107) mmol/L Carbon Dioxide (21-33) mmol/L Anion Gap (10-20) BUN (7-21) mg/dL Creatinine (0.5-1.4) mg/dL Est GFR ( Amer) Est GFR (Non-Af Amer) Random Glucose (70-110) mg/dL Calcium (8.4-10.5) mg/dL Phosphorus (2.5-4.5) mg/dL Magnesium (1.7-2.2) mg/dL Total Bilirubin (0.2-1.3) mg/dL AST (15-39) U/L ALT (7-56) U/L Alkaline Phosphatase (38-133) U/L Total Protein (5.8-8.3) g/dL Albumin (3.0-4.8) g/dL Globulin gm/dL Albumin/Globulin Ratio (1.1-1.8) Venous Blood Potassium 4.1 (3.6-5.2) mmol/L Blood Type Antibody Screen Crossmatch BBK History Checked 08/15/16 08/15/16 08/13/16 Range/Units 14:50 14:50 09:30 WBC (4.5-11.0) 10^3/ul RBC (3.5-6.1) 10^6/uL Hgb (12.0-16.0) gm/dL Hct (36.0-48.0) % MCV (80.0-105.0) fL MCH (25.0-35.0) pg MCHC (31.0-37.0) g/dl RDW (11.5-14.5) % Plt Count (120.0-450.0) 10^3/uL MPV (7.0-11.0) fl Gran % (50.0-68.0) % Lymph % (Auto) (22.0-35.0) % [place] % (Auto) (1.0-6.0) % Eos % (Auto) (1.5-5.0) % Baso % (Auto) (0.0-3.0) % Gran # (1.4-6.5) Lymph # (1.2-3.4) [place] # (0.1-0.6) Eos # (0.0-0.7) Baso # (0.0-2.0) K/mm3 Neutrophils % (Manual) (50.0-70.0) % Lymphocytes % (Manual) (22.0-35.0) % Monocytes % (Manual) (1.0-6.0) % Platelet Evaluation (NORMAL) Polychromasia Hypochromasia Anisocytosis (manual) Macrocytosis (manual) Tear Drop Cells Alejandro Cells PT 12.3 H (9.9-11.8) Seconds INR 1.14 H (0.93-1.08) APTT 34.8 H (23.7-30.8) Seconds pO2 (30-55) mm/Hg VBG pH (7.32-7.43) VBG pCO2 (40-60) VBG HCO3 (21-28) mmol/l VBG Total CO2 (22-28) mmol.L VBG O2 Sat (Calc) (40-65) % VBG Base Excess (0.0-2.0) mmol/L VBG Potassium (3.6-5.2) mmol/L Glucose (65-105) mg/dl Lactate (0.7-2.1) mmol/L FiO2 % Sodium 136 (132-148) mmol/L Potassium 4.2 (3.6-5.0) mmol/L Chloride 112 H (98-107) mmol/L Carbon Dioxide 21 (21-33) mmol/L Anion Gap 7 L (10-20) BUN 25 H (7-21) mg/dL Creatinine 1.1 (0.5-1.4) mg/dL Est GFR ( Amer) 57 Est GFR (Non-Af Amer) 47 Random Glucose 84 (70-110) mg/dL Calcium 7.2 L (8.4-10.5) mg/dL Phosphorus (2.5-4.5) mg/dL Magnesium 1.6 L (1.7-2.2) mg/dL Total Bilirubin 0.5 (0.2-1.3) mg/dL AST 24 (15-39) U/L ALT 26 (7-56) U/L Alkaline Phosphatase 109 (38-133) U/L Total Protein 4.3 L (5.8-8.3) g/dL Albumin 1.7 L (3.0-4.8) g/dL Globulin 2.5 gm/dL Albumin/Globulin Ratio 0.7 L (1.1-1.8) Venous Blood Potassium (3.6-5.2) mmol/L Blood Type O POSITIVE Antibody Screen Negative Crossmatch See Detail BBK History Checked Patient has bt Laboratory Results - last 24 hr 08/13/16 08/15/16 08/15/16 09:30 14:50 14:50 WBC RBC Hgb Hct MCV MCH MCHC RDW Plt Count MPV Gran % Lymph % (Auto) [place] % (Auto) Eos % (Auto) Baso % (Auto) Gran # Lymph # [place] # Eos # Baso # Neutrophils % (Manual) Lymphocytes % (Manual) Monocytes % (Manual) Platelet Evaluation Polychromasia Hypochromasia Anisocytosis (manual) Macrocytosis (manual) Tear Drop Cells [place] Cells PT 12.3 H INR 1.14 H APTT 34.8 H pO2 VBG pH VBG pCO2 VBG HCO3 VBG Total CO2 VBG O2 Sat (Calc) VBG Base Excess VBG Potassium Glucose Lactate FiO2 Sodium 136 Potassium 4.2 Chloride 112 H Carbon Dioxide 21 Anion Gap 7 L BUN 25 H Creatinine 1.1 Est GFR ( Amer) 57 Est GFR (Non-Af Amer) 47 Random Glucose 84 Calcium 7.2 L Phosphorus Magnesium 1.6 L Total Bilirubin 0.5 AST 24 ALT 26 Alkaline Phosphatase 109 Total Protein 4.3 L Albumin 1.7 L Globulin 2.5 Albumin/Globulin Ratio 0.7 L Venous Blood Potassium Blood Type O POSITIVE Antibody Screen Negative Crossmatch See Detail BBK History Checked Patient has bt 08/15/16 08/15/16 08/15/16 16:40 16:40 23:20 WBC 21.9 H RBC 1.84 L Hgb 5.8 L* D 8.0 L D Hct 17.3 L* 23.4 L MCV 94.0 MCH 31.5 MCHC 33.5 RDW 19.3 H Plt Count 317 MPV 9.2 Gran % 85.6 H Lymph % (Auto) 6.4 L [place] % (Auto) 8.0 H Eos % (Auto) 0.0 L Baso % (Auto) 0.0 Gran # 18.70 H Lymph # 1.4 [place] # 1.8 H Eos # 0.0 Baso # 0.01 Neutrophils % (Manual) 89 H Lymphocytes % (Manual) 10 L Monocytes % (Manual) 1 Platelet Evaluation Normal Polychromasia Slight Hypochromasia Slight Anisocytosis (manual) Slight Macrocytosis (manual) Slight Tear Drop Cells Slight [place] Cells Slight PT INR APTT pO2 35 VBG pH 7.41 VBG pCO2 30.0 L VBG HCO3 19.0 L VBG Total CO2 19.9 L VBG O2 Sat (Calc) 69.5 H VBG Base Excess -5.2 L VBG Potassium 4.1 Glucose 118 H Lactate 2.1 FiO2 21.0 Sodium 139.0 Potassium Chloride 114.0 H Carbon Dioxide Anion Gap BUN Creatinine Est GFR ( Amer) Est GFR (Non-Af Amer) Random Glucose Calcium Phosphorus Magnesium Total Bilirubin AST ALT Alkaline Phosphatase Total Protein Albumin Globulin Albumin/Globulin Ratio Venous Blood Potassium 4.1 Blood Type Antibody Screen Crossmatch BBK History Checked 08/16/16 08/16/16 08/16/16 06:30 06:30 06:30 WBC 17.1 H D RBC 2.67 L Hgb 8.2 L Hct 24.2 L MCV 90.6 MCH 30.7 MCHC 33.9 RDW 17.0 H Plt Count 231 MPV 9.3 Gran % 83.5 H Lymph % (Auto) 8.7 L [place] % (Auto) 7.7 H Eos % (Auto) 0.0 L Baso % (Auto) 0.1 Gran # 14.30 H Lymph # 1.5 [place] # 1.3 H Eos # 0.0 Baso # 0.01 Neutrophils % (Manual) Lymphocytes % (Manual) Monocytes % (Manual) Platelet Evaluation Polychromasia Hypochromasia Anisocytosis (manual) Macrocytosis (manual) Tear Drop Cells Alejandro Cells PT INR APTT pO2 49 VBG pH 7.40 VBG pCO2 32.0 L VBG HCO3 19.8 L VBG Total CO2 20.8 L VBG O2 Sat (Calc) 89.6 H VBG Base Excess -4.4 L VBG Potassium 3.9 Glucose 85 Lactate 0.8 FiO2 21.0 Sodium 140.0 139 Potassium 3.9 Chloride 114.0 H 114 H Carbon Dioxide 19 L Anion Gap 10 BUN 26 H Creatinine 1.2 Est GFR ( Amer) 52 Est GFR (Non-Af Amer) 43 Random Glucose 81 Calcium 7.6 L Phosphorus 3.2 Magnesium 2.1 Total Bilirubin 0.9 AST 20 ALT 30 Alkaline Phosphatase 92 Total Protein 5.0 L Albumin 2.5 L Globulin 2.5 Albumin/Globulin Ratio 1.0 L Venous Blood Potassium 3.9 Blood Type Antibody Screen Crossmatch BBK History Checked Review of Systems - Review of Systems Systems not reviewed;Unavailable: Altered Mental Status Critical Care Progress Note - Ventilator Checklist Head of Bed 30 Degrees: Yes PUD Prophalyxis: Yes (Protonix) DVT Prophylaxis: Yes (SCD) - Extremities/Vascular Does the Patient have a Central Venous Catheter?: Yes Insertion Site: Axillary Vein Does the Patient need a Central Venous Catheter?: Yes Does the Patient have a Cote Catheter?: Yes Does the Patient need a Cote Catheter?: Yes Catheter Insertion Criteria: Need for accurate measurement of output in critically ill patient - Prophylaxis GI Prophylaxis GI: PPI - Prophylaxis DVT Prophylaxis DVT: SCDs - Nutrition Nutrition: Nutrition Category Date Time Status Heart Healthy Diet [DIET] Diets 08/09/16 Dinner Ordered Assessment/Plan - Assessment and Plan (Free Text) Assessment: This is an 86F who presented with an intra-abdominal abscess which was drained by [facility] who subsequently had a colon resection and colostomy/mucous fistula creation POD9. Patient developed leukocytosis, lethargy and anemia of 5.6, she went for a CT abdomen that was significant for a left perinephric collection and was subsequently admitted to the ICU. Neuro: Altered mental status, likely due to dementia with confounding medical problems, continue donepezil Heme: HGB increased from 5.6-->8.2 s/p transfusion of 2 units, output from fortino drains suggest stabilization of bleeding, will transfuse as necessary. Cardio: Hemodynamically intact, tachycardic 110+/-10bpm, afib controlled with amiodorone and metoprolol, and digoxin. HTN controlled with hydrazine and metoprolol, hyperlipidemia controlled with simvastatin, CHF strict ins and outs Resp: No acute findings GI: Patient is s/p hartmans reversal will continue to monitor stoma output, PPI for GI PPX : Patient is currently with a cote in place and making urine. Fluids: Will continue concepción hydration with electrolyte replacement as necessary. ID: Patients WBC is trending down from 21.9 -->17.1 will continue vancomycin and flagyl. Other: Patient is currently DNR/DNI family will be at bedside later today to discuss patients current condition and make decisions in regards to realistic goals and expectations of patients care and prognosis. Will discuss with Dr. Davida Rose PGY-1 <Davida SY,[facility] - Last Filed: 08/16/16 15:57> CCU Objective - Vital Signs / Intake & Output Vital Signs (Last 4 hours): Vital Signs Temp 08/16/16 12:00 98.9 F Intake and Output (Last 8hrs): Intake & Output 08/16/16 08/16/16 08/16/16 06:59 14:59 22:59 Intake Total 1250 Output Total 400 Balance 850 Weight 174 lb Intake: IV 1250 Right Internal Jugular 1250 Oral 0 Output: Drainage 250 Left Abdomen 110 Right Abdomen 140 Urine 150 Urethral (Cote) 150 Other: # Bowel Movements 1 - Medications Active Medications: Active Medications Generic Name Dose Route Start Last Admin Trade Name Freq PRN Reason Stop Dose Admin Acetaminophen 320 mg 08/08/16 10:03 08/13/16 16:32 Tylenol 650mg/20.3ml Solution Ud PO 320 mg Q4 PRN Administration Fever >100.4 F Albumin Human 25 gm 08/15/16 18:00 08/16/16 10:30 Albumin Human 25% (12.5 Gm/50 Ml) IV 08/16/16 18:01 25 gm BID JENNIFER Administration Amiodarone HCl 200 mg 08/13/16 10:00 08/16/16 11:16 Cordarone PO Not Given DAILY [facility] Aspirin 81 mg 08/10/16 10:00 08/15/16 11:27 Aspirin Chewable PO 81 mg DAILY JENNIFER Administration Atorvastatin Calcium 40 mg 07/31/16 17:00 08/15/16 17:22 Lipitor PO Not Given DIN [facility] Benzocaine/Menthol 1 burton 08/07/16 14:23 08/08/16 10:10 Cepacol Sore Throat MT 1 burton Q2H PRN Administration Sore Throat Calcium Carbonate 500 mg 08/02/16 10:00 08/16/16 11:18 Oscal PO Not Given DAILY [facility] Cholecalciferol 2,000 iu 08/05/16 10:00 08/16/16 11:18 Vitamin D PO Not Given DAILY [facility] Clonidine HCl 1 patch 08/07/16 15:00 08/14/16 10:37 Catapres Tts1 0.1 Mg/24 Hr TD Not Given Q7D@1000 [facility] Digoxin 0.25 mg 08/13/16 14:00 08/15/16 17:38 Lanoxin IVP Not Given 1400 [facility] Donepezil HCl 10 mg 07/31/16 22:00 08/15/16 22:14 Aricept PO Not Given HS [facility] Enoxaparin Sodium 60 mg 08/10/16 11:00 08/15/16 11:25 Lovenox SC 60 mg Q12 [facility] Administration Protocol Ferrous Sulfate 324 mg 07/31/16 10:00 08/16/16 14:50 Feosol PO Not Given TID [facility] Hydralazine HCl 10 mg 08/08/16 15:44 08/10/16 00:15 Apresoline IVP 10 mg Q6 PRN Administration Other Metronidazole 500 mg in 100 mls @ 100 mls/hr 07/31/16 06:00 08/16/16 14:55 Flagyl IVPB 100 mls/hr Q8 JENNIFER Administration Protocol Vancomycin HCl 1 g in 250 mls @ 167 mls/hr 08/10/16 13:30 08/16/16 11:14 Vancomycin 1gm IVPB 167 mls/hr Q12 JENNIFER Administration Protocol Dextrose/Sodium Chloride 1,000 mls @ 50 mls/hr 08/12/16 09:00 08/13/16 12:19 Dextrose 5%/0.9% Ns 1000 Ml IV Not Given .Q20H JENNIFER diltiaZEM IVPB 100mg in NS 100 mls @ 6 mls/hr 08/15/16 00:26 08/15/16 14:38 Cardizem 100mg In Ns IV 6 mg/hr .[id number] PRN 6 mls/hr TITRATE PER MD ORDER Administration Protocol 6 MG/HR Lactated Ringer's 1,000 mls @ 75 mls/min 08/16/16 06:24 08/16/16 11:03 Lactated Ringer's IV 75 mls/min .Q14M JENNIFER Administration Metoprolol Tartrate 50 mg 07/31/16 10:00 08/13/16 12:18 Lopressor PO Not Given BID JENNIFER Metoprolol Tartrate 5 mg 08/13/16 11:34 08/13/16 13:54 Lopressor IVP 5 mg Q6 PRN Administration Heart rate Morphine Sulfate 0.5 mg 08/10/16 16:29 08/13/16 07:34 Morphine IVP 0.5 mg Q4H PRN Administration Pain, moderate (4-7) Ondansetron HCl 4 mg 08/06/16 12:24 Zofran Inj IVP Q6 PRN Nausea/Vomiting Pantoprazole Sodium 20 mg 07/31/16 07:30 08/16/16 11:18 Protonix Ec Tab PO Not Given ACB JENNIFER - Patient Studies Lab Studies: Lab Studies 08/16/16 08/16/16 08/16/16 Range/Units 06:30 06:30 06:30 WBC 17.1 H D (4.5-11.0) 10^3/ul RBC 2.67 L (3.5-6.1) 10^6/uL Hgb 8.2 L (12.0-16.0) gm/dL Hct 24.2 L (36.0-48.0) % MCV 90.6 (80.0-105.0) fL MCH 30.7 (25.0-35.0) pg MCHC 33.9 (31.0-37.0) g/dl RDW 17.0 H (11.5-14.5) % Plt Count 231 (120.0-450.0) 10^3/uL MPV 9.3 (7.0-11.0) fl Gran % 83.5 H (50.0-68.0) % Lymph % (Auto) 8.7 L (22.0-35.0) % [place] % (Auto) 7.7 H (1.0-6.0) % Eos % (Auto) 0.0 L (1.5-5.0) % Baso % (Auto) 0.1 (0.0-3.0) % Gran # 14.30 H (1.4-6.5) Lymph # 1.5 (1.2-3.4) [place] # 1.3 H (0.1-0.6) Eos # 0.0 (0.0-0.7) Baso # 0.01 (0.0-2.0) K/mm3 Neutrophils % (Manual) (50.0-70.0) % Lymphocytes % (Manual) (22.0-35.0) % Monocytes % (Manual) (1.0-6.0) % Platelet Evaluation (NORMAL) Polychromasia Hypochromasia Anisocytosis (manual) Macrocytosis (manual) Tear Drop Cells [place] Cells pO2 49 (30-55) mm/Hg VBG pH 7.40 (7.32-7.43) VBG pCO2 32.0 L (40-60) VBG HCO3 19.8 L (21-28) mmol/l VBG Total CO2 20.8 L (22-28) mmol.L VBG O2 Sat (Calc) 89.6 H (40-65) % VBG Base Excess -4.4 L (0.0-2.0) mmol/L VBG Potassium 3.9 (3.6-5.2) mmol/L Sodium 139 140.0 (132-148) mmol/L Chloride 114 H 114.0 H (98-107) mmol/L Glucose 85 (65-105) mg/dl Lactate 0.8 (0.7-2.1) mmol/L FiO2 21.0 % Potassium 3.9 (3.6-5.0) mmol/L Carbon Dioxide 19 L (21-33) mmol/L Anion Gap 10 (10-20) BUN 26 H (7-21) mg/dL Creatinine 1.2 (0.5-1.4) mg/dL Est GFR ( Amer) 52 Est GFR (Non-Af Amer) 43 Random Glucose 81 (70-110) mg/dL Calcium 7.6 L (8.4-10.5) mg/dL Phosphorus 3.2 (2.5-4.5) mg/dL Magnesium 2.1 (1.7-2.2) mg/dL Total Bilirubin 0.9 (0.2-1.3) mg/dL AST 20 (15-39) U/L ALT 30 (7-56) U/L Alkaline Phosphatase 92 (38-133) U/L Total Protein 5.0 L (5.8-8.3) g/dL Albumin 2.5 L (3.0-4.8) g/dL Globulin 2.5 gm/dL Albumin/Globulin Ratio 1.0 L (1.1-1.8) Venous Blood Potassium 3.9 (3.6-5.2) mmol/L Blood Type Antibody Screen Crossmatch BBK History Checked 08/15/16 08/15/16 08/15/16 Range/Units 23:20 16:40 16:40 WBC 21.9 H (4.5-11.0) 10^3/ul RBC 1.84 L (3.5-6.1) 10^6/uL Hgb 8.0 L D 5.8 L* D (12.0-16.0) gm/dL Hct 23.4 L 17.3 L* (36.0-48.0) % MCV 94.0 (80.0-105.0) fL MCH 31.5 (25.0-35.0) pg MCHC 33.5 (31.0-37.0) g/dl RDW 19.3 H (11.5-14.5) % Plt Count 317 (120.0-450.0) 10^3/uL MPV 9.2 (7.0-11.0) fl Gran % 85.6 H (50.0-68.0) % Lymph % (Auto) 6.4 L (22.0-35.0) % [place] % (Auto) 8.0 H (1.0-6.0) % Eos % (Auto) 0.0 L (1.5-5.0) % Baso % (Auto) 0.0 (0.0-3.0) % Gran # 18.70 H (1.4-6.5) Lymph # 1.4 (1.2-3.4) [place] # 1.8 H (0.1-0.6) Eos # 0.0 (0.0-0.7) Baso # 0.01 (0.0-2.0) K/mm3 Neutrophils % (Manual) 89 H (50.0-70.0) % Lymphocytes % (Manual) 10 L (22.0-35.0) % Monocytes % (Manual) 1 (1.0-6.0) % Platelet Evaluation Normal (NORMAL) Polychromasia Slight Hypochromasia Slight Anisocytosis (manual) Slight Macrocytosis (manual) Slight Tear Drop Cells Slight [place] Cells Slight pO2 35 (30-55) mm/Hg VBG pH 7.41 (7.32-7.43) VBG pCO2 30.0 L (40-60) VBG HCO3 19.0 L (21-28) mmol/l VBG Total CO2 19.9 L (22-28) mmol.L VBG O2 Sat (Calc) 69.5 H (40-65) % VBG Base Excess -5.2 L (0.0-2.0) mmol/L VBG Potassium 4.1 (3.6-5.2) mmol/L Sodium 139.0 (132-148) mmol/L Chloride 114.0 H (98-107) mmol/L Glucose 118 H (65-105) mg/dl Lactate 2.1 (0.7-2.1) mmol/L FiO2 21.0 % Potassium (3.6-5.0) mmol/L Carbon Dioxide (21-33) mmol/L Anion Gap (10-20) BUN (7-21) mg/dL Creatinine (0.5-1.4) mg/dL Est GFR ( Amer) Est GFR (Non-Af Amer) Random Glucose (70-110) mg/dL Calcium (8.4-10.5) mg/dL Phosphorus (2.5-4.5) mg/dL Magnesium (1.7-2.2) mg/dL Total Bilirubin (0.2-1.3) mg/dL AST (15-39) U/L ALT (7-56) U/L Alkaline Phosphatase (38-133) U/L Total Protein (5.8-8.3) g/dL Albumin (3.0-4.8) g/dL Globulin gm/dL Albumin/Globulin Ratio (1.1-1.8) Venous Blood Potassium 4.1 (3.6-5.2) mmol/L Blood Type Antibody Screen Crossmatch BBK History Checked 08/13/16 Range/Units 09:30 WBC (4.5-11.0) 10^3/ul RBC (3.5-6.1) 10^6/uL Hgb (12.0-16.0) gm/dL Hct (36.0-48.0) % MCV (80.0-105.0) fL MCH (25.0-35.0) pg MCHC (31.0-37.0) g/dl RDW (11.5-14.5) % Plt Count (120.0-450.0) 10^3/uL MPV (7.0-11.0) fl Gran % (50.0-68.0) % Lymph % (Auto) (22.0-35.0) % [place] % (Auto) (1.0-6.0) % Eos % (Auto) (1.5-5.0) % Baso % (Auto) (0.0-3.0) % Gran # (1.4-6.5) Lymph # (1.2-3.4) [place] # (0.1-0.6) Eos # (0.0-0.7) Baso # (0.0-2.0) K/mm3 Neutrophils % (Manual) (50.0-70.0) % Lymphocytes % (Manual) (22.0-35.0) % Monocytes % (Manual) (1.0-6.0) % Platelet Evaluation (NORMAL) Polychromasia Hypochromasia Anisocytosis (manual) Macrocytosis (manual) Tear Drop Cells [place] Cells pO2 (30-55) mm/Hg VBG pH (7.32-7.43) VBG pCO2 (40-60) VBG HCO3 (21-28) mmol/l VBG Total CO2 (22-28) mmol.L VBG O2 Sat (Calc) (40-65) % VBG Base Excess (0.0-2.0) mmol/L VBG Potassium (3.6-5.2) mmol/L Sodium (132-148) mmol/L Chloride (98-107) mmol/L Glucose (65-105) mg/dl Lactate (0.7-2.1) mmol/L FiO2 % Potassium (3.6-5.0) mmol/L Carbon Dioxide (21-33) mmol/L Anion Gap (10-20) BUN (7-21) mg/dL Creatinine (0.5-1.4) mg/dL Est GFR ( Amer) Est GFR (Non-Af Amer) Random Glucose (70-110) mg/dL Calcium (8.4-10.5) mg/dL Phosphorus (2.5-4.5) mg/dL Magnesium (1.7-2.2) mg/dL Total Bilirubin (0.2-1.3) mg/dL AST (15-39) U/L ALT (7-56) U/L Alkaline Phosphatase (38-133) U/L Total Protein (5.8-8.3) g/dL Albumin (3.0-4.8) g/dL Globulin gm/dL Albumin/Globulin Ratio (1.1-1.8) Venous Blood Potassium (3.6-5.2) mmol/L Blood Type O POSITIVE Antibody Screen Negative Crossmatch See Detail BBK History Checked Patient has bt Laboratory Results - last 24 hr 08/13/16 08/15/16 08/15/16 09:30 16:40 16:40 WBC 21.9 H RBC 1.84 L Hgb 5.8 L* D Hct 17.3 L* MCV 94.0 MCH 31.5 MCHC 33.5 RDW 19.3 H Plt Count 317 MPV 9.2 Gran % 85.6 H Lymph % (Auto) 6.4 L [place] % (Auto) 8.0 H Eos % (Auto) 0.0 L Baso % (Auto) 0.0 Gran # 18.70 H Lymph # 1.4 [place] # 1.8 H Eos # 0.0 Baso # 0.01 Neutrophils % (Manual) 89 H Lymphocytes % (Manual) 10 L Monocytes % (Manual) 1 Platelet Evaluation Normal Polychromasia Slight Hypochromasia Slight Anisocytosis (manual) Slight Macrocytosis (manual) Slight Tear Drop Cells Slight [place] Cells Slight pO2 35 VBG pH 7.41 VBG pCO2 30.0 L VBG HCO3 19.0 L VBG Total CO2 19.9 L VBG O2 Sat (Calc) 69.5 H VBG Base Excess -5.2 L VBG Potassium 4.1 Sodium 139.0 Chloride 114.0 H Glucose 118 H Lactate 2.1 FiO2 21.0 Potassium Carbon Dioxide Anion Gap BUN Creatinine Est GFR ( Amer) Est GFR (Non-Af Amer) Random Glucose Calcium Phosphorus Magnesium Total Bilirubin AST ALT Alkaline Phosphatase Total Protein Albumin Globulin Albumin/Globulin Ratio Venous Blood Potassium 4.1 Blood Type O POSITIVE Antibody Screen Negative Crossmatch See Detail BBK History Checked Patient has bt 08/15/16 08/16/16 08/16/16 23:20 06:30 06:30 WBC 17.1 H D RBC 2.67 L Hgb 8.0 L D 8.2 L Hct 23.4 L 24.2 L MCV 90.6 MCH 30.7 MCHC 33.9 RDW 17.0 H Plt Count 231 MPV 9.3 Gran % 83.5 H Lymph % (Auto) 8.7 L [place] % (Auto) 7.7 H Eos % (Auto) 0.0 L Baso % (Auto) 0.1 Gran # 14.30 H Lymph # 1.5 [place] # 1.3 H Eos # 0.0 Baso # 0.01 Neutrophils % (Manual) Lymphocytes % (Manual) Monocytes % (Manual) Platelet Evaluation Polychromasia Hypochromasia Anisocytosis (manual) Macrocytosis (manual) Tear Drop Cells [place] Cells pO2 49 VBG pH 7.40 VBG pCO2 32.0 L VBG HCO3 19.8 L VBG Total CO2 20.8 L VBG O2 Sat (Calc) 89.6 H VBG Base Excess -4.4 L VBG Potassium 3.9 Sodium 140.0 Chloride 114.0 H Glucose 85 Lactate 0.8 FiO2 21.0 Potassium Carbon Dioxide Anion Gap BUN Creatinine Est GFR ( Amer) Est GFR (Non-Af Amer) Random Glucose Calcium Phosphorus Magnesium Total Bilirubin AST ALT Alkaline Phosphatase Total Protein Albumin Globulin Albumin/Globulin Ratio Venous Blood Potassium 3.9 Blood Type Antibody Screen Crossmatch BBK History Checked 08/16/16 06:30 WBC RBC Hgb Hct MCV MCH MCHC RDW Plt Count MPV Gran % Lymph % (Auto) [place] % (Auto) Eos % (Auto) Baso % (Auto) Gran # Lymph # [place] # Eos # Baso # Neutrophils % (Manual) Lymphocytes % (Manual) Monocytes % (Manual) Platelet Evaluation Polychromasia Hypochromasia Anisocytosis (manual) Macrocytosis (manual) Tear Drop Cells [place] Cells pO2 VBG pH VBG pCO2 VBG HCO3 VBG Total CO2 VBG O2 Sat (Calc) VBG Base Excess VBG Potassium Sodium 139 Chloride 114 H Glucose Lactate FiO2 Potassium 3.9 Carbon Dioxide 19 L Anion Gap 10 BUN 26 H Creatinine 1.2 Est GFR ( Amer) 52 Est GFR (Non-Af Amer) 43 Random Glucose 81 Calcium 7.6 L Phosphorus 3.2 Magnesium 2.1 Total Bilirubin 0.9 AST 20 ALT 30 Alkaline Phosphatase 92 Total Protein 5.0 L Albumin 2.5 L Globulin 2.5 Albumin/Globulin Ratio 1.0 L Venous Blood Potassium Blood Type Antibody Screen Crossmatch BBK History Checked Critical Care Progress Note - Nutrition Nutrition: Nutrition Category Date Time Status Heart Healthy Diet [DIET] Diets 08/09/16 Dinner Ordered Attending/Attestation - Attestation I have personally seen and examined this patient.: Yes I have fully participated in the care of the patient.: Yes I have reviewed all pertinent clinical information: Yes Notes (Text): 08/16/16 15:55 86 y/o F w/ long course in the Hospital with post op complications w/ Perinephric bleed and abscess drainage. HGb stable currently , received 2 units PRBC. Keep HGB > [address] with bloody ouput. Hemodynamically stable. On empiric abx w/ Vancomycin and Flagyl , cx pending. Wound cx positive from 1 week prior. A. Fib rate controlled off Cardizem drip. On P.O amiodarone. Cardiology following. DNR/DNI w/ Possible palliative meeting for possible hospice. dvt p SCD. PPi cc time 34 min
[2016-08-16] MEDS: Albumin Human 25% (12.5 gm/50 ml) IV SCH ×2 (10:30→18:33)
[2016-08-16] MEDS: Vancomycin 1gm in NS 250ml 1 G/250 ML BAG IVPB SCH (11:14)
[2016-08-16] MEDS: Pantoprazole 20 mg EC Tab PO SCH (11:18)
--- NOTE | 2016-08-16 12:18 | PN ---
DATE: 08/16/2016 Seen and examined at the bedside in ICU. The patient had a CAT scan yesterday and found to have a he matoma on the right. The patient was found to have a large acute perinephric, acute hematoma measuri ng 10 x 8 cm and then she was also found to have a hemoglobin of 5 and transferred to the ICU. She w as transfused 2 units of packed RBCs this morning. She is lethargic, but arousable. Does complain o f some abdominal discomfort, but in no distress. VITAL SIGNS: Temperature is 97.6, blood pressure is 144/69, respirations 17, 98 pulse. LABORATORY DATA: Today, her WBC count is 17.1, hemoglobin is 8.2, hematocrit 24.2, platelets is 231. Sodium 139, K is 3.9, BUN 26, creatinine is 1.2. LFTs are within normal limits. PHYSICAL EXAMINATION: HEENT: Sclerae are anicteric. NECK: Supple. CARDIAC: S1, S2. LUNGS: Decreased breath sounds but good air entry, no rales or wheeze. ABDOMEN: With bowel sounds, soft. She has damon that are open to air midline. Her colostomy had brown stool and she has 2 MO drains, one coming out near the colostomy and one on the right quadrant, which are both draining serosanguineous. EXTREMITIES: She has upper extremity edema. ASSESSMENT: An 86-year-old female with past medical history of hypertension, coronary artery disease , status post stents and history of Alzheimer's dementia, now in ICU for hemorrhagic shock secondary to perinephric bleeding, status post 2 units of packed RBCs and also fresh frozen plasma last night. The patient was admitted with diverticulitis and intraabdominal abscess with a cutaneous fistula. S he is status post initially interventional drain and now status post exploratory laparoscopy with sig moid resection and colostomy. The patient also with atrial fibrillation. PLAN: Continue to monitor H and H, transfuse as necessary. The patient's aspirin is on hold as well as Lovenox. Continue PPI. The patient is on IV antibiotics, vancomycin, Flagyl. [facility] keep n.p.o. until the patient is fully alert and awake. She is on IV fluids as per e ICU team. The patient is also going to be evaluated by urology. The patient was seen and case dis cussed with Dr. Archuleta. Arina BRAR cc: [id number] TT: 08/16/2016 12:17:26 Confirmation # [id number] Dictation # [id number]
--- NOTE | 2016-08-16 12:20 | PN ---
DATE: 08/16/2016 The patient was transferred to the ICU for transient hypotension secondary to an intraabdominal hemat siddhartha. PHYSICAL EXAMINATION: VITAL SIGNS: Currently, after resuscitation, blood pressure 144/70, heart rate is in the 90s. NECK: Negative JVD. LUNGS: Decreased breath sounds. HEART: Revealed S1, S2. EXTREMITIES: Without edema. LABORATORY DATA: The hemoglobin is improved from 5.8 to 8.2 after transfusion. IMPRESSION: 1. Status post hypotension. 2. Atrial fibrillation. 3. Status post abdominal surgery. 4. Coronary artery disease. 5. Anemia. PLAN: Given these findings, the patient is now a DNR. The patient does not wish for aggressive trevor ures anymore. Esa Wolfe MD cc: [id number] TT: 08/16/2016 12:19:19 Confirmation # [id number] Dictation # [id number]
--- NOTE | 2016-08-16 12:56 | CP.PCM.PN ---
<Jess Wilkerson - Last Filed: 08/16/16 21:23> Subjective - Date & Time of Evaluation Date of Evaluation: 08/16/16 Time of Evaluation: 07:00 - Subjective Subjective: Medicine progress note for Dr Diaz and [facility] service. Patient was transfused 2 units of prbc and 1 ffp. HGB has stabilized to ~8. Patient's family were made aware of the situation. Granddaughter decided to make patient DNI/DNR. This AM, patient remains lethargic, but responds to her name. Patient was able to answer few questions, said no to pay, cp. Responded yes to sob, and feeling weak. Objective - Vital Signs/Intake and Output Vital Signs (last 24 hours): Temp Pulse Resp BP Pulse Ox 97.6 F 98 H 29 H 144/69 100 08/16/16 04:43 08/16/16 06:30 08/16/16 06:30 08/16/16 06:00 08/16/16 06:30 Intake and Output: 08/16/16 08/16/16 06:59 18:59 Intake Total 1625 Output Total 700 Balance 925 - Medications Medications: Current Medications Acetaminophen (Tylenol 650mg/20.3ml Solution Ud) 320 mg PO Q4 PRN PRN Reason: Fever >100.4 F Last Admin: 08/13/16 16:32 Dose: 320 mg Albumin Human (Albumin Human 25% (12.5 Gm/50 Ml)) 25 gm IV BID [facility] Stop: 08/16/16 18:01 Amiodarone HCl (Cordarone) 200 mg PO DAILY [facility] Last Admin: 08/16/16 11:16 Dose: Not Given Aspirin (Aspirin Chewable) 81 mg PO DAILY [facility] Last Admin: 08/15/16 11:27 Dose: 81 mg Atorvastatin Calcium (Lipitor) 40 mg PO DIN [facility] Last Admin: 08/15/16 17:22 Dose: Not Given Benzocaine/Menthol (Cepacol Sore Throat) 1 [place] Q2H PRN PRN Reason: Sore Throat Last Admin: 08/08/16 10:10 Dose: 1 [place] Calcium Carbonate (Oscal) 500 mg PO DAILY [facility] Last Admin: 08/16/16 11:18 Dose: Not Given Cholecalciferol (Vitamin D) 2,000 iu PO DAILY [facility] Last Admin: 08/16/16 11:18 Dose: Not Given Clonidine HCl (Catapres Tts1 0.1 Mg/24 Hr) 1 patch TD Q7D@1000 [facility] Last Admin: 08/14/16 10:37 Dose: Not Given Digoxin (Lanoxin) 0.25 mg IVP 1400 [facility] Last Admin: 08/15/16 17:38 Dose: Not Given Donepezil HCl (Aricept) 10 mg PO HS [facility] Last Admin: 08/15/16 22:14 Dose: Not Given Enoxaparin Sodium (Lovenox) 60 mg SC Q12 JENNIFER PRN Reason: Protocol Last Admin: 08/15/16 11:25 Dose: 60 mg Ferrous Sulfate (Feosol) 324 mg PO TID [facility] Last Admin: 08/16/16 11:17 Dose: Not Given Hydralazine HCl (Apresoline) 10 mg IVP Q6 PRN PRN Reason: Other Last Admin: 08/10/16 00:15 Dose: 10 mg Metronidazole (Flagyl) 500 mg in 100 mls @ 100 mls/hr IVPB Q8 JENNIFER PRN Reason: Protocol Last Admin: 08/16/16 05:28 Dose: 100 mls/hr Vancomycin HCl (Vancomycin 1gm) 1 g in 250 mls @ 167 mls/hr IVPB Q12 JENNIFER PRN Reason: Protocol Last Admin: 08/16/16 11:14 Dose: 167 mls/hr Dextrose/Sodium Chloride (Dextrose 5%/0.9% Ns 1000 Ml) 1,000 mls @ 50 mls/hr IV .Q20H [facility] Last Admin: 08/13/16 12:19 Dose: Not Given diltiaZEM IVPB 100mg in NS (Cardizem 100mg In Ns) 100 mls @ 6 mls/hr IV .[id number] PRN; Protocol; 6 MG/HR PRN Reason: TITRATE PER MD ORDER Last Admin: 08/15/16 14:38 Dose: 6 mg/hr, 6 mls/hr Lactated Ringer's (Lactated Ringer's) 1,000 mls @ 75 mls/min IV .Q14M [facility] Last Admin: 08/16/16 11:03 Dose: 75 mls/min Metoprolol Tartrate (Lopressor) 50 mg PO BID [facility] Last Admin: 05/30/17 12:18 Dose: Not Given Metoprolol Tartrate (Lopressor) 5 mg IVP Q6 PRN PRN Reason: Heart rate Last Admin: 08/13/16 13:54 Dose: 5 mg Morphine Sulfate (Morphine) 0.5 mg IVP Q4H PRN PRN Reason: Pain, moderate (4-7) Last Admin: 08/13/16 07:34 Dose: 0.5 mg Ondansetron HCl (Zofran Inj) 4 mg IVP Q6 PRN PRN Reason: Nausea/Vomiting Pantoprazole Sodium (Protonix Ec Tab) 20 mg PO ACB JENNIFER Last Admin: 08/16/16 11:18 Dose: Not Given - Labs Labs: 08/16/16 06:30 08/16/16 06:30 PT 12.3 Seconds (9.9-11.8) H 08/15/16 14:50 INR 1.14 (0.93-1.08) H 08/15/16 14:50 APTT 34.8 Seconds (23.7-30.8) H 08/15/16 14:50 - Constitutional Appears: No Acute Distress, Cachectic, Chronically Ill - Head Exam Head Exam: ATRAUMATIC, NORMAL INSPECTION, NORMOCEPHALIC - Eye Exam Eye Exam: absent: Scleral icterus (pale sclera.) - ENT Exam ENT Exam: Mucous Membranes Dry - Neck Exam Neck Exam: Normal Inspection - Respiratory Exam Respiratory Exam: Rales, Rhonchi, NORMAL BREATHING PATTERN. absent: Wheezes, Stridor Additional comments: Agonal breathing - Cardiovascular Exam Cardiovascular Exam: Tachycardia, Irregular Rhythm, +S1, +S2, Murmur (systolic) - GI/Abdominal Exam GI & Abdominal Exam: Soft, Hypoactive Bowel Sounds. absent: Distended, Firm, Guarding, Rigid, Tenderness Additional comments: ostomy site producing brow loose stool. MO drains with bloody fluid mixed with clots. - Extremities Exam Extremities Exam: Pedal Edema (+4) - Neurological Exam Additional comments: Responds to verbal commands. - Psychiatric Exam Psychiatric exam: Normal Affect - Skin Skin Exam: Diaphoretic, Warm Assessment and Plan - Assessment and Plan (Free Text) Assessment: Patient is an 86 y/o with PMH of HTN, CAD s/p stents, CHF, HLD, Alzheimer's dementia, h/o cholecystectomy, Diverticulitis admitted with intra-abdominal abscess with cutaneous fistula s/p IR drain placement and removal, s/p sigmoid resection with colostomy and mucous fistula. Oliguric post op, which has now resolved. Developed RVR afib 2 days post op, was on Cardizem drip, which was switched to po Cardizem, once the rate was controlled. Patient currently refused medical care, including po meds, thus switched back to Cardizem drip. Leukocytosis continued to trend up. CT w/ po contrast was obtained to work up the leukocytosis,, and revealed acute left perinephric hematoma, HGB was 5.9, with INR of 1.14. Patient's SBP was also in the 90s. Patient is currently in ICU , and is DNR/DNI. s/p 2 units of prbc and 1 ffp. Plan: 1) Left acute perinephric hematoma on CT - patient is being followed by multiple service- surgery, uro-> no surgical intervention at this time. - s/p transfusion, hgb appears to be stable. - BP seems stable now 2) Symptomatic acute on chronic anemia 2nd to perinephric hematoma - s/p 2 units of prbc on 08/13, and 2 units 08/15, and 1 ffp - hgb seems stable in the 8s 3) New onset RVR Afib -Cardizem drip on hold, started on lopressor ivp prn - d/c lovenox 2nd to acute perinephric hematoma - Too lethargic for po amiodorone. 4) h/o CAD with stents, NSTEMI this admission. - hold Lipitor, and Lopressor. -> unable to take po, on ivp lopressor prn. 5)Sepsis with HAP as source - repeat bcx no growth - on vanco and unasyn - leukocytosis trended down - will hold vanco until vanco level is obtained. 6) Diverticulitis with intra-abdominal abscess and cutaneous fistula s/p IR drain, s/p exp lap with sigmoid resection, colostomy mucous fistula, and washout. - wound care as per surgery - ID and surgery following. 7) Hypokalemia/hypomag/hypophos-stable, will continue to monitor. 8)KRIS- likely 2nd to ATN- - creat stable and uo improved - will continue to monitor. 9) Malnutrition with anasarca and b/l pleural effusion - s/p IV albumin, Albumin still very low, but much improved - NPO due to mental status, will need to consider other alternative means of nutrition if patient remains npo. 10) h/o HTN-continue clonidine patch, Lopressor and Hydralazine prn for htn. 11) Transaminitis-resolved 12) Vitamin D deficiency - po vitamin d 2000 on hold. 13) Dementia- aricept on hold. 14) DVT prophylaxis: Lovenox on hold, and protonix ivp. 15) Dispo- pending Overall patient has a very poor prognosis, and is currently DNI/DNR. Will speak to patient's granddaughter about the next step. Patient, seen, examined, and case discussed with Dr Diaz. <Praful Diaz - Last Filed: 09/11/16 08:45> Objective - Vital Signs/Intake and Output Vital Signs (last 24 hours): Temp Pulse Resp BP Pulse Ox 95 F L 42 L 36 H 95/57 L 96 08/17/16 12:00 08/17/16 20:00 08/17/16 20:00 08/17/16 19:00 08/17/16 20:30 - Labs Labs: 08/17/16 05:00 08/17/16 05:00 PT 12.3 Seconds (9.9-11.8) H 08/15/16 14:50 INR 1.14 (0.93-1.08) H 08/15/16 14:50 APTT 34.8 Seconds (23.7-30.8) H 08/15/16 14:50 Attending/Attestation - Attestation I have personally seen and examined this patient.: Yes I have fully participated in the care of the patient.: Yes I have reviewed all pertinent clinical information, including history, physical exam and plan: Yes Notes (Text): 09/11/16 08:45 Medical record note made by resident after discussion with my direction and input after patient personally seen and examined by me. I have reviewed the chart and agree that the record accurately reflects my personal history, physical, data review and plan.
--- NOTE | 2016-08-16 14:03 | CP.PCM.PN ---
Subjective - Date & Time of Evaluation Date of Evaluation: 08/16/16 Time of Evaluation: 13:51 - Subjective Subjective: Follow up Nephrology Consultation: Assessment: Acute Kidney Injury likely due to ATN due to hypotension/hypovolemia episode Left Perinephric hematoma and acute anemia now s/p PRBC B/l pleural effusion, anasarca with severe hypoalbuminemia, A fib with RVR hx of HTN, CAD s/p stent, CHF, HLD, Alzeheimer's dementia Diverticulitis with abscess s/p IR drainage s/p exploratory laparotomy (08/06) with sigmoid resection, washout of intra-abdominal abscess, mobilization of the splenic flexure, creation of ostomy and mucous fistula creation with B/L ureteral stent placement by Vit D def, mild lactic acidosis and hypomagnesemia, Hypokalemia Plan s/p PRBC for her acute anemia. no acute need for renal replacement therapy. agree with albumin infusion. consider IV lasix 20-40 mg along with it. Dose Vanco by level. supplement electrolytes as needed. nutritional support. Hypertension control with meds as ordered. continue to hold diovan due to recent KRIS. on PRN hydralazine for HTN Monitor Input/Output, daily weights Avoid fleets enema/magnesium based laxatives. Avoid nephrotoxins/NSAIDs/ iodinated contrast (unless needed emergently) Glycemic control Further work up for as per primary team Thanks for allowing me to participate in care of your patient. overall prognosis appear to be guarded. Please call if any Qs. d/w ICU Dr Jhon Can Office: [phone] HPI: Pt is a 86 y/o F with hx of HTN, CAD s/p stents, CHF, HLD, Alzeheimer's dementia and Diverticulitis w/abscess s/p IR drainage underwent exploratory laparotomy (08/06)with sigmoid resection, washout of intra-abdominal abscess, mobilization of the splenic flexure, creation of ostomy and mucous fistula creation with B/L ureteral stent placement by RALEIGH is seen in renal consultation as has decreased urine outpt in post-op period. episodes of low BP post-op, SBP 80-90 Subjective: lethargic and not much communicating. transferred to ICU 08/14 due to hypotension and CT showing perinephric hematoma Physical Examination: General Appearance: elderly female ill appearing Vitals reviewed and noted as below Lungs: Normal respiratory rate/effort. Breath sounds bilateral decreased at bases Heart: Increased rate. s1s2 normal. No rub or gallop. Extremities: 2+ edema with anasarca Neurological: Patient is lethargic and not much communicating Abdomen: Abdomen is soft. has LLQ ostomy. midline dressing and MO drains+ . : kidney or bladder not palpable. has cote Labs/imaging reviewed. Past medical history, past surgical history, family history, social history, allergy reviewed and noted as below work up: previosu imaging: normal kidneys and bladder UA: trace protein no blood Vit D <12 Mag 1.3 Urine Na 40 CTA 08/10: no PE. has b/l pleural effusions and consolidation Albumin 1.8 Objective - Vital Signs/Intake and Output Vital Signs (last 24 hours): Temp Pulse Resp BP Pulse Ox 97.6 F 98 H 29 H 144/69 100 08/16/16 04:43 08/16/16 06:30 08/16/16 06:30 08/16/16 06:00 08/16/16 06:30 Intake and Output: 08/16/16 08/16/16 06:59 18:59 Intake Total 1625 Output Total 700 Balance 925 - Medications Medications: Current Medications Acetaminophen (Tylenol 650mg/20.3ml Solution Ud) 320 mg PO Q4 PRN PRN Reason: Fever >100.4 F Last Admin: 08/13/16 16:32 Dose: 320 mg Albumin Human (Albumin Human 25% (12.5 Gm/50 Ml)) 25 gm IV BID [facility] Stop: 08/16/16 18:01 Amiodarone HCl (Cordarone) 200 mg PO DAILY [facility] Last Admin: 08/16/16 11:16 Dose: Not Given Aspirin (Aspirin Chewable) 81 mg PO DAILY [facility] Last Admin: 08/15/16 11:27 Dose: 81 mg Atorvastatin Calcium (Lipitor) 40 mg PO DIN [facility] Last Admin: 08/15/16 17:22 Dose: Not Given Benzocaine/Menthol (Cepacol Sore Throat) 1 burton MT Q2H PRN PRN Reason: Sore Throat Last Admin: 08/08/16 10:10 Dose: 1 burton Calcium Carbonate (Oscal) 500 mg PO DAILY [facility] Last Admin: 08/16/16 11:18 Dose: Not Given Cholecalciferol (Vitamin D) 2,000 iu PO DAILY [facility] Last Admin: 08/16/16 11:18 Dose: Not Given Clonidine HCl (Catapres Tts1 0.1 Mg/24 Hr) 1 patch TD Q7D@1000 [facility] Last Admin: 08/14/16 10:37 Dose: Not Given Digoxin (Lanoxin) 0.25 mg IVP 1400 [facility] Last Admin: 08/15/16 17:38 Dose: Not Given Donepezil HCl (Aricept) 10 mg PO HS [facility] Last Admin: 08/15/16 22:14 Dose: Not Given Enoxaparin Sodium (Lovenox) 60 mg SC Q12 JENNIFER PRN Reason: Protocol Last Admin: 08/15/16 11:25 Dose: 60 mg Ferrous Sulfate (Feosol) 324 mg PO TID [facility] Last Admin: 08/16/16 11:17 Dose: Not Given Hydralazine HCl (Apresoline) 10 mg IVP Q6 PRN PRN Reason: Other Last Admin: 08/10/16 00:15 Dose: 10 mg Metronidazole (Flagyl) 500 mg in 100 mls @ 100 mls/hr IVPB Q8 JENNIFER PRN Reason: Protocol Last Admin: 08/16/16 05:28 Dose: 100 mls/hr Vancomycin HCl (Vancomycin 1gm) 1 g in 250 mls @ 167 mls/hr IVPB Q12 JENNIFER PRN Reason: Protocol Last Admin: 08/16/16 11:14 Dose: 167 mls/hr Dextrose/Sodium Chloride (Dextrose 5%/0.9% Ns 1000 Ml) 1,000 mls @ 50 mls/hr IV .Q20H [facility] Last Admin: 08/13/16 12:19 Dose: Not Given diltiaZEM IVPB 100mg in NS (Cardizem 100mg In Ns) 100 mls @ 6 mls/hr IV .[id number] PRN; Protocol; 6 MG/HR PRN Reason: TITRATE PER MD ORDER Last Admin: 08/15/16 14:38 Dose: 6 mg/hr, 6 mls/hr Lactated Ringer's (Lactated Ringer's) 1,000 mls @ 75 mls/min IV .Q14M [facility] Last Admin: 08/16/16 11:03 Dose: 75 mls/min Metoprolol Tartrate (Lopressor) 50 mg PO BID [facility] Last Admin: 08/13/16 12:18 Dose: Not Given Metoprolol Tartrate (Lopressor) 5 mg IVP Q6 PRN PRN Reason: Heart rate Last Admin: 08/13/16 13:54 Dose: 5 mg Morphine Sulfate (Morphine) 0.5 mg IVP Q4H PRN PRN Reason: Pain, moderate (4-7) Last Admin: 08/13/16 07:34 Dose: 0.5 mg Ondansetron HCl (Zofran Inj) 4 mg IVP Q6 PRN PRN Reason: Nausea/Vomiting Pantoprazole Sodium (Protonix Ec Tab) 20 mg PO ACB [facility] Last Admin: 08/16/16 11:18 Dose: Not Given - Labs Labs: 08/16/16 06:30 08/16/16 06:30 PT 12.3 Seconds (9.9-11.8) H 08/15/16 14:50 INR 1.14 (0.93-1.08) H 08/15/16 14:50 APTT 34.8 Seconds (23.7-30.8) H 08/15/16 14:50
[2016-08-16] MEDS: Digoxin 500 mcg/2ml (0.5 mg/2ml) Inj IVP SCH (15:04)
--- NOTE | 2016-08-16 15:58 | CON ---
DATE: 08/16/2016 CHIEF COMPLAINT: Retroperitoneal hematoma. HISTORY OF PRESENT ILLNESS: This is an 86-year-old female who was seen in the CCU at [facility]. The patient was admitted a few weeks ago for a draining fistula from perforated diverticuli tis. The patient underwent a colectomy and drainage of the abscess. She has had a patricia postoperati ve course. She is now seen in the CCU. She has been made a DNR. Multiple drains are in place from her abdominal surgery. The patient had been on Lovenox. It appears that she had a cardiac catheteri zation a few weeks ago to rule out a pulmonary embolism or unclear reason. However, the patient has now been found to have a large retroperitoneal hematoma and a consultation was then requested. Casandra marshall is seen in her room in the CCU. She is arousable, but unable to answer any questions. She is in n o acute distress. PAST MEDICAL HISTORY: As per the history of present illness, diverticulitis with abscess, status pos t colostomy and Brad's procedure, history of hypertension, coronary artery disease, congestive he art failure. PAST SURGICAL HISTORY: Colectomy, cholecystectomy, hysterectomy, cardiac stents. MEDICATIONS: Include albumin, hydralazine, Aricept, aspirin, Cardizem, Catapres, benzocaine, amiodar one, iron, Flagyl, IV fluids, digoxin, Lipitor, Lopressor, Lovenox is being held, morphine, Os-Tera, P rotonix, Tylenol, vancomycin, vitamin D and Zofran. ALLERGIES: No known drug allergies. FAMILY HISTORY: Noncontributory. SOCIAL HISTORY: No reported smoking or ETOH use. REVIEW OF SYSTEMS: Not obtainable as patient is unable to answer questions. PHYSICAL EXAMINATION: GENERAL: The patient is somewhat obtunded, but arousable, in her bed in the CCU, currently afebrile. VITAL SIGNS: Temp of 98.9, pulse in the 90s, BP 140/70, respirations 24. NECK: Shows no rigidity. CHEST: Shows normal inspiratory effort. There are some coarse breath sounds heard. CARDIAC: Positive S1, S2. There is [id number] peripheral edema noted. ABDOMEN: Appears soft. There is no obvious rebound or guarding. There are damon in place. The w ound appears clean. A colostomy in place, which is functioning. There are multiple drains, draining serosanguineous fluid noted. GENITOURINARY: There is a Lozano catheter in place draining clear-colored urine. EXTREMITIES: There is no cyanosis. There is tngy-bl-asbencgg peripheral edema noted. LABORATORY EXAM: Hemoglobin had dropped down to 5.8. The patient received transfusion and hemoglobi n is now 8.2, platelets 231. WBC count 17.1, creatinine 1.2, GFR 52. Abdominal CT scan was done yes terday, which showed A large acute perinephric hematoma measuring 10 cm x 8 cm with displacement of t he left kidney anteriorly with perinephric infiltration. Bilateral pleural effusions and pericardial effusion were noted. IMPRESSION AND PLAN: This is a critically ill 86-year-old female seen in the CCU at [facility]. Urologically, not much to be done at this point regarding the large perinephric hematoma. T he cause of the retroperitoneal bleeding is likely from her anticoagulation with Lovenox. The plan f or now would be to hold any anticoagulation. It appears she is still on aspirin, which I would recom mend holding unless last cardiology feels this is critical. The patient should be transfused if her hemoglobin continues to drop. Her condition is extremely grave and she has been made a DNR. I would not recommend any surgical intervention at this time. The bleeding should tamponade itself and stab ilize. Continue supportive medical care with IV fluids, intravenous antibiotics and would recommend some nutritional support as well. Thank you for allowing me to participate in the care of this patient. We will follow her with you. Khai Duff MD cc: [phone] TT: 08/16/2016 15:57:45 Confirmation # [id number] Dictation # [id number] mn
--- NOTE | 2016-08-16 16:14 | CP.PCM.PN ---
Subjective - Date & Time of Evaluation Date of Evaluation: 08/16/16 Time of Evaluation: 14:30 - Subjective Subjective: Infectious Disease Follow Up: August 16, 2016 85 yo female sent to [facility] [place]. Keita's office after discovery of purulent drainage from left lower abdominal drain site. She has a history of hypertension, GI bleed, CAD with stents, anemia, and osteoporosis. Many of her hospitalizations last year were for GI bleed. 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 She is currently on ceftriaxone and Flagyl. This will cover most recurrences of E. coli. Taken to IR by Dr. Zaldivar on Friday. 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 IR drain is still showing fecal material. E. coli in cultures of wound site. Yeast in urine cultures. Tre-colectomy yesteday with monitoring post surgery in MICU. Patient transferred to medical floor. Low urine output. Noted events of previous night where patient was briefly unresponsive and finally awoke after several attempts with deep chest rubs. Patient was lethargic this morning according to notes. Today the patient had bouts of tachycardia up to 200 bpm. Reported to me by resident that the patient had fevers up to 101.2 F a few days ago. I had suggested Vancomycin use based on that information. I do not see any recording of fevers in the chart at this point. Reports are of tachycardia. The patient did have a CT scan that showed bilateral pleural effusions which was reported to me by the regional medical director. Vancomycin added for potential hospital acquired pneumonia. Noted the events of last night and this morning. The patient is now refusing all medications and care. Mentation usually waxes and wanes. The patient refused to eat. She is very lethargic when seen. She stated to the resident this morning "I want the Lord to take me". She was moved to the MICU after CT scan showed a left perinephric hematoma. Objective - Vital Signs/Intake and Output Vital Signs (last 24 hours): Temp Pulse Resp BP Pulse Ox 98.9 F 91 H 29 H 144/69 100 08/16/16 12:00 08/16/16 10:00 08/16/16 06:30 08/16/16 06:00 08/16/16 06:30 Intake and Output: 08/16/16 08/16/16 06:59 18:59 Intake Total 1625 Output Total 700 Balance 925 - Medications Medications: Current Medications Acetaminophen (Tylenol 650mg/20.3ml Solution Ud) 320 mg PO Q4 PRN PRN Reason: Fever >100.4 F Last Admin: 08/13/16 16:32 Dose: 320 mg Albumin Human (Albumin Human 25% (12.5 Gm/50 Ml)) 25 gm IV BID [facility] Stop: 08/16/16 18:01 Last Admin: 08/16/16 10:30 Dose: 25 gm Amiodarone HCl (Cordarone) 200 mg PO DAILY [facility] Last Admin: 08/16/16 11:16 Dose: Not Given Aspirin (Aspirin Chewable) 81 mg PO DAILY [facility] Last Admin: 08/15/16 11:27 Dose: 81 mg Atorvastatin Calcium (Lipitor) 40 mg PO DIN [facility] Last Admin: 08/15/16 17:22 Dose: Not Given Benzocaine/Menthol (Cepacol Sore Throat) 1 burton MT Q2H PRN PRN Reason: Sore Throat Last Admin: 08/08/16 10:10 Dose: 1 burton Calcium Carbonate (Oscal) 500 mg PO DAILY [facility] Last Admin: 08/16/16 11:18 Dose: Not Given Cholecalciferol (Vitamin D) 2,000 iu PO DAILY [facility] Last Admin: 08/16/16 11:18 Dose: Not Given Clonidine HCl (Catapres Tts1 0.1 Mg/24 Hr) 1 patch TD Q7D@1000 [facility] Last Admin: 08/14/16 10:37 Dose: Not Given Digoxin (Lanoxin) 0.25 mg IVP 1400 [facility] Last Admin: 08/15/16 17:38 Dose: Not Given Donepezil HCl (Aricept) 10 mg PO HS [facility] Last Admin: 08/15/16 22:14 Dose: Not Given Enoxaparin Sodium (Lovenox) 60 mg SC Q12 JENNIFER PRN Reason: Protocol Last Admin: 08/15/16 11:25 Dose: 60 mg Ferrous Sulfate (Feosol) 324 mg PO TID [facility] Last Admin: 08/16/16 14:50 Dose: Not Given Hydralazine HCl (Apresoline) 10 mg IVP Q6 PRN PRN Reason: Other Last Admin: 08/10/16 00:15 Dose: 10 mg Metronidazole (Flagyl) 500 mg in 100 mls @ 100 mls/hr IVPB Q8 JENNIFER PRN Reason: Protocol Last Admin: 08/16/16 14:55 Dose: 100 mls/hr Vancomycin HCl (Vancomycin 1gm) 1 g in 250 mls @ 167 mls/hr IVPB Q12 JENNIFER PRN Reason: Protocol Last Admin: 08/16/16 11:14 Dose: 167 mls/hr Dextrose/Sodium Chloride (Dextrose 5%/0.9% Ns 1000 Ml) 1,000 mls @ 50 mls/hr IV .Q20H [facility] Last Admin: 08/13/16 12:19 Dose: Not Given diltiaZEM IVPB 100mg in NS (Cardizem 100mg In Ns) 100 mls @ 6 mls/hr IV .[id number] PRN; Protocol; 6 MG/HR PRN Reason: TITRATE PER MD ORDER Last Admin: 08/15/16 14:38 Dose: 6 mg/hr, 6 mls/hr Lactated Ringer's (Lactated Ringer's) 1,000 mls @ 75 mls/min IV .Q14M [facility] Last Admin: 08/16/16 11:03 Dose: 75 mls/min Metoprolol Tartrate (Lopressor) 50 mg PO BID [facility] Last Admin: 08/13/16 12:18 Dose: Not Given Metoprolol Tartrate (Lopressor) 5 mg IVP Q6 PRN PRN Reason: Heart rate Last Admin: 08/13/16 13:54 Dose: 5 mg Morphine Sulfate (Morphine) 0.5 mg IVP Q4H PRN PRN Reason: Pain, moderate (4-7) Last Admin: 08/13/16 07:34 Dose: 0.5 mg Ondansetron HCl (Zofran Inj) 4 mg IVP Q6 PRN PRN Reason: Nausea/Vomiting Pantoprazole Sodium (Protonix Ec Tab) 20 mg PO ACB [facility] Last Admin: 08/16/16 11:18 Dose: Not Given - Labs Labs: 08/16/16 06:30 08/16/16 06:30 PT 12.3 Seconds (9.9-11.8) H 08/15/16 14:50 INR 1.14 (0.93-1.08) H 08/15/16 14:50 APTT 34.8 Seconds (23.7-30.8) H 08/15/16 14:50 - Constitutional Appears: Non-toxic, No Acute Distress, Chronically Ill - Head Exam Head Exam: ATRAUMATIC, NORMOCEPHALIC - Eye Exam Eye Exam: EOMI, PERRL Pupil Exam: NORMAL ACCOMODATION, PERRL - ENT Exam ENT Exam: Mucous Membranes Moist, Normal External Ear Exam, TM's Normal Bilaterally - Neck Exam Neck Exam: Full ROM, Normal Inspection - Respiratory Exam Respiratory Exam: Decreased Breath Sounds, NORMAL BREATHING PATTERN. absent: Rales, Rhonchi, Wheezes - Cardiovascular Exam Cardiovascular Exam: Tachycardia, REGULAR RHYTHM, RRR, +S1, +S2 - GI/Abdominal Exam GI & Abdominal Exam: Soft, Normal Bowel Sounds. absent: Distended, Tenderness Additional comments: colostomy in place. s/p sigmoidectomy. - Extremities Exam Extremities Exam: Full ROM, Normal Inspection - Neurological Exam Neurological Exam: Alert, Awake, CN II-XII Intact, Oriented x3 - Psychiatric Exam Psychiatric exam: Normal Affect, Normal Mood - Skin Skin Exam: Intact, Normal Color Assessment and Plan - Assessment and Plan (Free Text) Assessment: 86 yo female with intra-abdominal abscess presenting with drainage of pus. Taken by IR for drain placement. Spoke with Dr. Zaldivar in detail regarding case. He fears formation of fistula at this time. On Rocephin and Metronidazole. Last hospitalization showed VRE and E. coli growth. Supportive care with low tolerance for switching antibiotics to one such as meropenem. Current culture is showing E. coli that is sensitive to Rocephin and Ancef. Continuing on Ancef. On Diflucan to cover yeast in the urine. New cultures taken that have been negative to date. Sigmoid colectomy during exploratory laparotomy. Continue Ancef. Colostomy in place. On medical floor. Vancomycin IV continued. Repeat culture on 08/10/2016 negative so far. So far no further tachycardia episodes for the past 48 hours. Supportive care. She is ambulating with PT. She is tolerating a soft diet. Fortino drain with serosaguinous drainage. Noted that the patient has refused meals and meds since last night. Lethargic today. Perinephric bleed and collection. Moved to MICU last night. Thank you for allowing me to participate in the care of the patient, we will follow with you.
[2016-08-16] MEDS ORDERED: Albumin Human 25% (25 gm/100 ml) IV ONE (18:30)
[2016-08-17 05:30] LABS: BILIRUBIN,TOTAL 0.7 mg/dL (0.2-1.3); CALCIUM 7.7 mg/dL (8.4-10.5); POTASSIUM 3.8 mmol/L (3.6-5.0)
[2016-08-17 05:35] LABS: BASO # 0.01 K/mm3 (0.0-2.0); BASO % 0.1 % (0.0-3.0); GRAN # 17.04 (1.4-6.5); GRAN % 90.1 % (50.0-68.0); HEMATOCRIT 25.4 % (36.0-48.0); LYMPH % 5.2 % (22.0-35.0); MEAN CORPUSCULAR HEMOGLOBIN 30.1 pg (25.0-35.0); MEAN CORPUSCULAR HGB CONC 33.1 g/dl (31.0-37.0); MEAN PLATELET VOLUME 8.8 fl (7.0-11.0); MONO # 0.9 (0.1-0.6); MONO % 4.6 % (1.0-6.0); PLATELET COUNT 276 10^3/uL (120.0-450.0); RED CELL DISTRIBUTION WIDTH 18.3 % (11.5-14.5); WHITE BLOOD COUNT 18.9 10^3/ul (4.5-11.0)
[2016-08-17 05:36] LABS: ADD MANUAL DIFF? NO
[2016-08-17] MEDS ORDERED: Lactated Ringer's 1,000 ML IV SCH (05:46)
[2016-08-17] MEDS: metroNIDAZOLE IV 500 mg/100 ml 500 MG/100 ML BAG IVPB SCH ×2 (05:46→13:15)
--- NOTE | 2016-08-17 07:55 | CP.PCM.PN ---
Subjective - Date & Time of Evaluation Date of Evaluation: 08/17/16 Time of Evaluation: 07:52 - Subjective Subjective: General Surgery Progress Note for Dr. Keita This 86F was seen and examined this Am at bedside. Nurse reports no acute events overnight. Patient is awake and increasingly responsive. Left and right noreen drains with serosanguinous fluids with 200cc/100cc respectively. Objective - Vital Signs/Intake and Output Vital Signs (last 24 hours): Temp Pulse Resp BP Pulse Ox 98.2 F 93 H 29 H 129/43 L 98 08/17/16 04:00 08/17/16 06:00 08/17/16 05:30 08/17/16 05:00 08/17/16 05:30 Intake and Output: 08/17/16 08/17/16 06:59 18:59 Intake Total 1200 Output Total 910 Balance 290 - Medications Medications: Current Medications Acetaminophen (Tylenol 650mg/20.3ml Solution Ud) 320 mg PO Q4 PRN PRN Reason: Fever >100.4 F Last Admin: 08/13/16 16:32 Dose: 320 mg Amiodarone HCl (Cordarone) 200 mg PO DAILY [facility] Last Admin: 08/16/16 11:16 Dose: Not Given Aspirin (Aspirin Chewable) 81 mg PO DAILY [facility] Last Admin: 08/15/16 11:27 Dose: 81 mg Atorvastatin Calcium (Lipitor) 40 mg PO DIN [facility] Last Admin: 08/15/16 17:22 Dose: Not Given Benzocaine/Menthol (Cepacol Sore Throat) 1 burton MT Q2H PRN PRN Reason: Sore Throat Last Admin: 08/08/16 10:10 Dose: 1 burton Calcium Carbonate (Oscal) 500 mg PO DAILY [facility] Last Admin: 08/16/16 11:18 Dose: Not Given Cholecalciferol (Vitamin D) 2,000 iu PO DAILY [facility] Last Admin: 08/16/16 11:18 Dose: Not Given Clonidine HCl (Catapres Tts1 0.1 Mg/24 Hr) 1 patch TD Q7D@1000 [facility] Last Admin: 08/14/16 10:37 Dose: Not Given Digoxin (Lanoxin) 0.25 mg IVP 1400 [facility] Last Admin: 08/15/16 17:38 Dose: Not Given Donepezil HCl (Aricept) 10 mg PO HS [facility] Last Admin: 08/16/16 22:00 Dose: Not Given Ferrous Sulfate (Feosol) 324 mg PO TID [facility] Last Admin: 08/16/16 18:04 Dose: Not Given Hydralazine HCl (Apresoline) 10 mg IVP Q6 PRN PRN Reason: Other Last Admin: 08/17/16 00:32 Dose: 10 mg Metronidazole (Flagyl) 500 mg in 100 mls @ 100 mls/hr IVPB Q8 JENNIFER PRN Reason: Protocol Last Admin: 08/17/16 05:46 Dose: 100 mls/hr Vancomycin HCl (Vancomycin 1gm) 1 g in 250 mls @ 167 mls/hr IVPB Q12 JENNIFER PRN Reason: Protocol Last Admin: 08/16/16 11:14 Dose: 167 mls/hr Dextrose/Sodium Chloride (Dextrose 5%/0.9% Ns 1000 Ml) 1,000 mls @ 50 mls/hr IV .Q20H [facility] Last Admin: 08/13/16 12:19 Dose: Not Given diltiaZEM IVPB 100mg in NS (Cardizem 100mg In Ns) 100 mls @ 6 mls/hr IV .[id number] PRN; Protocol; 6 MG/HR PRN Reason: TITRATE PER MD ORDER Last Admin: 08/15/16 14:38 Dose: 6 mg/hr, 6 mls/hr Lactated Ringer's (Lactated Ringer's) 1,000 mls @ 75 mls/hr IV .[id number] [facility] Metoprolol Tartrate (Lopressor) 50 mg PO BID [facility] Last Admin: 08/13/16 12:18 Dose: Not Given Metoprolol Tartrate (Lopressor) 5 mg IVP Q6 PRN PRN Reason: Heart rate Last Admin: 08/13/16 13:54 Dose: 5 mg Morphine Sulfate (Morphine) 0.5 mg IVP Q4H PRN PRN Reason: Pain, moderate (4-7) Last Admin: 08/13/16 07:34 Dose: 0.5 mg Ondansetron HCl (Zofran Inj) 4 mg IVP Q6 PRN PRN Reason: Nausea/Vomiting Pantoprazole Sodium (Protonix Ec Tab) 20 mg PO ACB [facility] Last Admin: 08/16/16 11:18 Dose: Not Given Pantoprazole Sodium (Protonix Inj) 40 mg IVP DAILY [facility] - Labs Labs: 08/17/16 05:00 08/17/16 05:00 PT 12.3 Seconds (9.9-11.8) H 08/15/16 14:50 INR 1.14 (0.93-1.08) H 08/15/16 14:50 APTT 34.8 Seconds (23.7-30.8) H 08/15/16 14:50 - Constitutional Appears: No Acute Distress, Chronically Ill - Head Exam Head Exam: ATRAUMATIC, NORMOCEPHALIC - ENT Exam ENT Exam: Mucous Membranes Moist - Respiratory Exam Respiratory Exam: NORMAL BREATHING PATTERN. absent: Respiratory Distress - Cardiovascular Exam Cardiovascular Exam: Tachycardia, REGULAR RHYTHM - GI/Abdominal Exam GI & Abdominal Exam: Soft. absent: Distended, Tenderness Additional comments: abdominal wound dressing CDI. Ostomy is pink and patent. right and left noreen drain fluid is serous-sanguineous. output as noted above. - Extremities Exam Extremities Exam: Normal Inspection. absent: Calf Tenderness - Neurological Exam Neurological Exam: Alert, Awake - Psychiatric Exam Psychiatric exam: Normal Affect, Normal Mood Assessment and Plan - Assessment and Plan (Free Text) Assessment: This is an 86F w/ intra-abdominal abscess s/p colon resection w/ colostomy and mucous fistula creation POD10 Plan: -WBC incrased from yesterday 17.1 to 18.9 will trend -strict noreen output monitoring -urine output poor, will continue IVF, spoke with certified pesticide applicator reports kidney function impacted by clinical picture -would like to obtain BMP from noreen drain fluid -dressing changes prn on abdomen -further care per ICU team and primary -will follow -further recs per Dr. Bossman Rose PGY-8
--- NOTE | 2016-08-17 10:01 | PN ---
DATE: 08/17/2016 The patient seen and examined at bedside. She is a little bit more alert and awake. PHYSICAL EXAMINATION: VITAL SIGNS: Heart rate 85-93 (irregular), blood pressure 129/43, respiratory rate 20-29, oxygen saturation 100% on 2 L nasal cannula. HEAD AND NECK: Atraumatic. LUNGS: Clear to auscultation bilaterally. HEART: Regular rate and rhythm. S1, S2 normal. ABDOMEN: Soft, nontender. Colostomy looks okay. There is serosanguineous fluid, about 50 mL draining from both MO. MUSCULOSKELETAL: 2+ bilateral pedal and ankle edema. SKIN: Moist. PSYCHIATRIC: The patient is more awake. LABORATORY DATA: WBC 18.9, hemoglobin 8.4, platelet count 276. Sodium 140, potassium 3.8, chloride 115, carbon dioxide 18, BUN 26, creatinine 1.2 up from 0.7 four days ago. Lactic acid 0.8 as of yesterday. MEDICATIONS: Tylenol p.r.n., Lipitor, calcium, vitamin D, digoxin, Aricept, Feosol, Flagyl, hydralazine p.r.n., lactated Ringer's at 75 mL per hour, metoprolol p.r.n., metoprolol b.i.d., morphine p.r.n., Zofran p.r.n., Protonix, vancomycin IV. ASSESSMENT AND PLNA: This is an 86-year-old lady who was initially admitted to ICU with hemorrhagic shock due to perinephric hematoma. The hemorrhagic shock resolved with protamine, holding therapeutic anticoagulation and antiplatelet therapy, transfusing blood products. At the present time, the patient is hemodynamically and respiratory nevarez stable. Even her mental status is somewhat improved. Her abdominal exam is unremarkable. Her stoma looks viable. Surgical and genitourinary consults appreciated. Okay to downgrade to telemetry. We will continue to target euvolemia, euglycemia, normothermia and oxygen saturation more than 90%. We will continue with mechanical deep venous thrombosis prophylaxis. We will continue with gastrointestinal prophylaxis. ccm time 40 min Beau Castro MD cc: [id number] TT: 08/17/2016 10:00:40 Confirmation # [id number] Dictation # [id number] tn MTDFlorencia
[2016-08-17] MEDS: Vancomycin 1gm in NS 250ml 1 G/250 ML BAG IVPB SCH (10:34)
[2016-08-17 12:30] VITALS: TEMP 95
[2016-08-17] MEDS ORDERED: Dextrose 50% SYRINGE Inj (50 ml) IVP ONE (12:50)
[2016-08-17] MEDS: Dextrose 5%/0.9% NS 1,000 ML IV SCH (13:03)
[2016-08-17] MEDS: Digoxin 500 mcg/2ml (0.5 mg/2ml) Inj IVP SCH (13:16)
[2016-08-17 13:20] VITALS: PULSE 85
--- NOTE | 2016-08-17 13:59 | PN ---
DATE: 08/17/2016 I saw the patient resting in the intensive care unit. She is alert. She is weak and tired. The ana n is to get out of the intensive care unit to telemetry today. MEDICATIONS: She is on Apresoline, Aricept, aspirin, Catapres, Cepacol, Cordarone, dextrose, Feosol, Flagyl, Lanoxin, Lipitor, Lopressor, morphine, Os-Tera, Protonix, Tylenol, vancomycin, vitamin D and Zofran. PHYSICAL EXAMINATION: VITAL SIGNS: 95 temp, 90 pulse, 149/57 blood pressure, 20 respiratory rate, 94% O2 sat on nasal billy mary. HEENT: Head is atraumatic, normocephalic. HEART: Regular rate. LUNGS: Decreased breath sounds but clear. ABDOMEN: Soft. EXTREMITIES: Mildly contractured. LABORATORY DATA: She has any 18.9, white count 8.4, hemoglobin it is up from 5.8, a 25.4 hematocrit with 276 platelets. INR is 1.14, 140 sodium, potassium 3.8, BUN is 26, creatinine 1.2, GFR is 52, ca lcium is 7.7, phosphorus 4, magnesium 2, total bili is 0.7, AST is 26, ALT is 35, alkaline phosphatas e 127. Total protein is 5. The patient is being seen by the chainman, infectious disease, neurology, renal, cardiology, surge ry, GI, palliative care. She is status post hypotension, atrial fibrillation, abdominal surgery, cor onary artery disease, anemia, hemorrhage shock, We will try to get her to telemetry today. I discuss ed this with the resident and the nurses in the intensive care unit and the chainman. Check her l abs tomorrow. Phu Narvaez DO cc: [id number] TT: 08/17/2016 13:59:09 Confirmation # [id number] Dictation # [id number] reymundo
--- NOTE | 2016-08-17 15:12 | CP.PCM.PN ---
Subjective - Date & Time of Evaluation Date of Evaluation: 08/17/16 Time of Evaluation: 15:10 - Subjective Subjective: Follow up Nephrology Consultation: Assessment: Acute Kidney Injury likely due to ATN due to hypotension/hypovolemia episode Left Perinephric hematoma and acute anemia now s/p PRBC B/l pleural effusion, anasarca with severe hypoalbuminemia, A fib with RVR hx of HTN, CAD s/p stent, CHF, HLD, Alzeheimer's dementia Diverticulitis with abscess s/p IR drainage s/p exploratory laparotomy (08/06) with sigmoid resection, washout of intra-abdominal abscess, mobilization of the splenic flexure, creation of ostomy and mucous fistula creation with B/L ureteral stent placement by Vit D def, mild lactic acidosis and hypomagnesemia, Hypokalemia Plan s/p PRBC for her acute anemia. no acute need for renal replacement therapy. overall prognosis appear to be poor. d/w team and pt likely will be decided for comfort measures. family discussions ongoing. consider IV lasix 20-40 mg /day Dose Vanco by level. supplement electrolytes as needed. nutritional support. Hypertension control with meds as ordered. continue to hold diovan due to recent KRIS. on PRN hydralazine for HTN Monitor Input/Output, daily weights Avoid fleets enema/magnesium based laxatives. Avoid nephrotoxins/NSAIDs/ iodinated contrast (unless needed emergently) Glycemic control Further work up for as per primary team Thanks for allowing me to participate in care of your patient. Please call if any Qs. d/w ICU Dr Jhon Can Office: [phone] HPI: Pt is a 86 y/o F with hx of HTN, CAD s/p stents, CHF, HLD, Alzeheimer's dementia and Diverticulitis w/abscess s/p IR drainage underwent exploratory laparotomy (08/06)with sigmoid resection, washout of intra-abdominal abscess, mobilization of the splenic flexure, creation of ostomy and mucous fistula creation with B/L ureteral stent placement by is seen in renal consultation as has decreased urine outpt in post-op period. episodes of low BP post-op, SBP 80-90 Subjective: lethargic and not much communicating. transferred to ICU 08/14 due to hypotension and CT showing perinephric hematoma Physical Examination: General Appearance: elderly female ill appearing Vitals reviewed and noted as below Lungs: Normal respiratory rate/effort. Breath sounds bilateral decreased at bases Heart: normal rate. s1s2 normal. No rub or gallop. Extremities: 2+ edema with anasarca Neurological: Patient is lethargic and not much communicating Abdomen: Abdomen is soft. has LLQ ostomy. midline dressing and MO drains+ . : kidney or bladder not palpable. has cote Labs/imaging reviewed. Past medical history, past surgical history, family history, social history, allergy reviewed and noted as below work up: previosu imaging: normal kidneys and bladder UA: trace protein no blood Vit D <12 Mag 1.3 Urine Na 40 CTA 08/10: no PE. has b/l pleural effusions and consolidation Albumin 1.8 Objective - Vital Signs/Intake and Output Vital Signs (last 24 hours): Temp Pulse Resp BP Pulse Ox 95 F L 76 28 H 94/53 L 97 08/17/16 12:00 08/17/16 13:00 08/17/16 13:00 08/17/16 13:00 08/17/16 13:00 Intake and Output: 08/17/16 08/17/16 06:59 18:59 Intake Total 1200 475 Output Total 910 520 Balance 290 -45 - Medications Medications: Current Medications Acetaminophen (Tylenol 650mg/20.3ml Solution Ud) 320 mg PO Q4 PRN PRN Reason: Fever >100.4 F Last Admin: 08/13/16 16:32 Dose: 320 mg Amiodarone HCl (Cordarone) 200 mg PO DAILY [facility] Last Admin: 08/16/16 11:16 Dose: Not Given Aspirin (Aspirin Chewable) 81 mg PO DAILY [facility] Last Admin: 08/15/16 11:27 Dose: 81 mg Atorvastatin Calcium (Lipitor) 40 mg PO DIN [facility] Last Admin: 08/16/16 17:00 Dose: Not Given Benzocaine/Menthol (Cepacol Sore Throat) 1 [place] MT Q2H PRN PRN Reason: Sore Throat Last Admin: 08/08/16 10:10 Dose: 1 burton Calcium Carbonate (Oscal) 500 mg PO DAILY [facility] Last Admin: 08/17/16 10:42 Dose: Not Given Cholecalciferol (Vitamin D) 2,000 iu PO DAILY [facility] Last Admin: 08/17/16 10:38 Dose: Not Given Clonidine HCl (Catapres Tts1 0.1 Mg/24 Hr) 1 patch TD Q7D@1000 [facility] Last Admin: 08/14/16 10:37 Dose: Not Given Digoxin (Lanoxin) 0.25 mg IVP 1400 [facility] Last Admin: 08/17/16 13:16 Dose: 0.25 mg Donepezil HCl (Aricept) 10 mg PO HS [facility] Last Admin: 08/16/16 22:00 Dose: Not Given Ferrous Sulfate (Feosol) 324 mg PO TID [facility] Last Admin: 08/17/16 13:02 Dose: Not Given Hydralazine HCl (Apresoline) 10 mg IVP Q6 PRN PRN Reason: Other Last Admin: 08/17/16 00:32 Dose: 10 mg Metronidazole (Flagyl) 500 mg in 100 mls @ 100 mls/hr IVPB Q8 JENNIFER PRN Reason: Protocol Last Admin: 08/17/16 13:15 Dose: 100 mls/hr Vancomycin HCl (Vancomycin 1gm) 1 g in 250 mls @ 167 mls/hr IVPB Q12 JENNIFER PRN Reason: Protocol Last Admin: 08/17/16 10:34 Dose: 167 mls/hr Dextrose/Sodium Chloride (Dextrose 5%/0.9% Ns 1000 Ml) 1,000 mls @ 50 mls/hr IV .Q20H [facility] Last Admin: 08/17/16 13:03 Dose: 50 mls/hr Metoprolol Tartrate (Lopressor) 50 mg PO BID [facility] Last Admin: 08/13/16 12:18 Dose: Not Given Metoprolol Tartrate (Lopressor) 5 mg IVP Q6 PRN PRN Reason: Heart rate Last Admin: 08/13/16 13:54 Dose: 5 mg Morphine Sulfate (Morphine) 0.5 mg IVP Q4H PRN PRN Reason: Pain, moderate (4-7) Last Admin: 08/13/16 07:34 Dose: 0.5 mg Ondansetron HCl (Zofran Inj) 4 mg IVP Q6 PRN PRN Reason: Nausea/Vomiting Pantoprazole Sodium (Protonix Inj) 40 mg IVP DAILY [facility] Last Admin: 08/17/16 10:37 Dose: 40 mg - Labs Labs: 08/17/16 05:00 08/17/16 05:00 PT 12.3 Seconds (9.9-11.8) H 08/15/16 14:50 INR 1.14 (0.93-1.08) H 08/15/16 14:50 APTT 34.8 Seconds (23.7-30.8) H 08/15/16 14:50
--- NOTE | 2016-08-17 17:44 | CP.PCM.PN ---
Subjective - Date & Time of Evaluation Date of Evaluation: 08/17/16 Time of Evaluation: 16:30 - Subjective Subjective: Infectious Disease Follow Up: August 17, 2016 85 yo female sent to [facility] from Dr. Keita's office after discovery of purulent drainage from left lower abdominal drain site. She has a history of hypertension, GI bleed, CAD with stents, anemia, and osteoporosis. Many of her hospitalizations last year were for GI bleed. 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 She is currently on ceftriaxone and Flagyl. This will cover most recurrences of E. coli. Taken to IR by Dr. Zaldivar on Friday. 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 IR drain is still showing fecal material. E. coli in cultures of wound site. Yeast in urine cultures. Tre-colectomy yesteday with monitoring post surgery in MICU. Patient transferred to medical floor. Low urine output. Noted events of previous night where patient was briefly unresponsive and finally awoke after several attempts with deep chest rubs. Patient was lethargic this morning according to notes. Today the patient had bouts of tachycardia up to 200 bpm. Reported to me by resident that the patient had fevers up to 101.2 F a few days ago. I had suggested Vancomycin use based on that information. I do not see any recording of fevers in the chart at this point. Reports are of tachycardia. The patient did have a CT scan that showed bilateral pleural effusions which was reported to me by the medical sales. Vancomycin added for potential hospital acquired pneumonia. Noted the events of last night and this morning. The patient is now refusing all medications and care. Mentation usually waxes and wanes. The patient refused to eat. She is very lethargic when seen. She stated to the resident this morning "I want the Lord to take me". She was moved to the MICU after CT scan showed a left perinephric hematoma. She was transfused PRBCs. Renal function did decline over the past 2-3 days likely due to hemorrhagic shock/dehydration. Objective - Vital Signs/Intake and Output Vital Signs (last 24 hours): Temp Pulse Resp BP Pulse Ox 95 F L 68 28 H 104/62 100 08/17/16 12:00 08/17/16 17:00 08/17/16 17:00 08/17/16 17:00 08/17/16 17:00 Intake and Output: 08/17/16 08/17/16 06:59 18:59 Intake Total 1200 475 Output Total 910 520 Balance 290 -45 - Medications Medications: Current Medications Acetaminophen (Tylenol 650mg/20.3ml Solution Ud) 320 mg PO Q4 PRN PRN Reason: Fever >100.4 F Last Admin: 08/13/16 16:32 Dose: 320 mg Amiodarone HCl (Cordarone) 200 mg PO DAILY [facility] Last Admin: 08/16/16 11:16 Dose: Not Given Aspirin (Aspirin Chewable) 81 mg PO DAILY [facility] Last Admin: 08/15/16 11:27 Dose: 81 mg Atorvastatin Calcium (Lipitor) 40 mg PO DIN [facility] Last Admin: 08/16/16 17:00 Dose: Not Given Benzocaine/Menthol (Cepacol Sore Throat) 1 burton MT Q2H PRN PRN Reason: Sore Throat Last Admin: 08/08/16 10:10 Dose: 1 burton Calcium Carbonate (Oscal) 500 mg PO DAILY [facility] Last Admin: 08/17/16 10:42 Dose: Not Given Cholecalciferol (Vitamin D) 2,000 iu PO DAILY [facility] Last Admin: 08/17/16 10:38 Dose: Not Given Clonidine HCl (Catapres Tts1 0.1 Mg/24 Hr) 1 patch TD Q7D@1000 [facility] Last Admin: 08/14/16 10:37 Dose: Not Given Digoxin (Lanoxin) 0.25 mg IVP 1400 [facility] Last Admin: 08/17/16 13:16 Dose: 0.25 mg Donepezil HCl (Aricept) 10 mg PO HS [facility] Last Admin: 08/16/16 22:00 Dose: Not Given Ferrous Sulfate (Feosol) 324 mg PO TID [facility] Last Admin: 08/17/16 13:02 Dose: Not Given Hydralazine HCl (Apresoline) 10 mg IVP Q6 PRN PRN Reason: Other Last Admin: 08/17/16 00:32 Dose: 10 mg Metronidazole (Flagyl) 500 mg in 100 mls @ 100 mls/hr IVPB Q8 JENNIFER PRN Reason: Protocol Last Admin: 08/17/16 13:15 Dose: 100 mls/hr Vancomycin HCl (Vancomycin 1gm) 1 g in 250 mls @ 167 mls/hr IVPB Q12 [facility] PRN Reason: Protocol Last Admin: 08/17/16 10:34 Dose: 167 mls/hr Dextrose/Sodium Chloride (Dextrose 5%/0.9% Ns 1000 Ml) 1,000 mls @ 50 mls/hr IV .Q20H [facility] Last Admin: 08/17/16 13:03 Dose: 50 mls/hr Metoprolol Tartrate (Lopressor) 50 mg PO BID [facility] Last Admin: 08/13/16 12:18 Dose: Not Given Metoprolol Tartrate (Lopressor) 5 mg IVP Q6 PRN PRN Reason: Heart rate Last Admin: 08/13/16 13:54 Dose: 5 mg Morphine Sulfate (Morphine) 0.5 mg IVP Q4H PRN PRN Reason: Pain, moderate (4-7) Last Admin: 08/13/16 07:34 Dose: 0.5 mg Ondansetron HCl (Zofran Inj) 4 mg IVP Q6 PRN PRN Reason: Nausea/Vomiting Pantoprazole Sodium (Protonix Inj) 40 mg IVP DAILY [facility] Last Admin: 08/17/16 10:37 Dose: 40 mg - Labs Labs: 08/17/16 05:00 08/17/16 05:00 PT 12.3 Seconds (9.9-11.8) H 08/15/16 14:50 INR 1.14 (0.93-1.08) H 08/15/16 14:50 APTT 34.8 Seconds (23.7-30.8) H 08/15/16 14:50 - Constitutional Appears: Non-toxic, No Acute Distress, Chronically Ill - Head Exam Head Exam: ATRAUMATIC, NORMOCEPHALIC - Eye Exam Eye Exam: EOMI, PERRL Pupil Exam: NORMAL ACCOMODATION, PERRL - ENT Exam ENT Exam: Mucous Membranes Moist, Normal External Ear Exam, TM's Normal Bilaterally - Neck Exam Neck Exam: Full ROM, Normal Inspection - Respiratory Exam Respiratory Exam: Decreased Breath Sounds, Clear to Ausculation Bilateral, NORMAL BREATHING PATTERN. absent: Rales, Rhonchi, Wheezes - Cardiovascular Exam Cardiovascular Exam: REGULAR RHYTHM, RRR, +S1, +S2 - GI/Abdominal Exam GI & Abdominal Exam: Soft, Normal Bowel Sounds. absent: Distended, Tenderness Additional comments: colostomy in place. s/p sigmoidectomy. - Extremities Exam Extremities Exam: Full ROM, Normal Inspection - Neurological Exam Neurological Exam: Alert, Awake, CN II-XII Intact Additional comments: AAO x 2, more awake and alert today - Psychiatric Exam Psychiatric exam: Normal Affect, Normal Mood - Skin Skin Exam: Intact, Normal Color Assessment and Plan - Assessment and Plan (Free Text) Assessment: 86 yo female with intra-abdominal abscess presenting with drainage of pus. Taken by IR for drain placement. Spoke with Dr. Zaldivar in detail regarding case. He fears formation of fistula at this time. On Rocephin and Metronidazole. Last hospitalization showed VRE and E. coli growth. Supportive care with low tolerance for switching antibiotics to one such as meropenem. Current culture is showing E. coli that is sensitive to Rocephin and Ancef. Continuing on Ancef. On Diflucan to cover yeast in the urine. New cultures taken that have been negative to date. Sigmoid colectomy during exploratory laparotomy. Continue Ancef. Colostomy in place. On medical floor. Vancomycin IV continued. Repeat culture on 08/10/2016 negative so far. So far no further tachycardia episodes for the past 48 hours. Supportive care. She is ambulating with PT. She is tolerating a soft diet. Fortino drain with serosaguinous drainage. Noted that the patient has refused meals and meds since last night. Lethargic today. Perinephric bleed and collection. Moved to MICU and has remained there. On Vancomycin, Flagyl, Unasyn. Decreased Vancomycin dosing. Thank you for allowing me to participate in the care of the patient, we will follow with you.
--- NOTE | 2016-08-17 20:41 | CP.PCM.PRO ---
Pronouncement of Note - Clinical Findings Physical Exam: No Response Verbal/Painful Stimuli, Absent Peripheral Pulses{ Carotid & Femoral}, Absent Heart & Breath Sounds, No Pupillary Light Reflex, No Corneal Reflex, Pupils Fixed & Dilated, Absence of Vital Signs - Pronouncement Time Time of Pronouncement of : 20:31 Additional Comments: pupils were fixed and non-reactive - Autopsy Autopsy Requested: No - N.Laura Certificate [place]ED[place] Number: [id number] Additional Comments: Grandaughter at bedside and made aware of time of . RN to notify primary physician.
[2016-08-17 21:59] VITALS: BP 95/57; PULSE 42; RESP 36; O2SAT 96
--- NOTE | 2016-08-18 07:33 | RAD ---
PROCEDURE: HISTORY: s/p ngt COMPARISON: TECHNIQUE: FINDINGS: Large bilateral pleural effusions with airspace consolidation. PICC line present on the left with tip in the SVC. Feeding tube present the end of the tube is in the gastric body. IMPRESSION: As above.
[2016-08-18] MEDS ORDERED: Vancomycin 1gm in NS 250ml 1 G/250 ML BAG IVPB SCH (10:00)
--- NOTE | 2016-08-19 07:34 | PN ---
DATE: 08/17/2016 SUBJECTIVE: This patient was seen and evaluated earlier today. I discussed with the resident. The patient still remains weak and lethargic. PHYSICAL EXAMINATION: VITAL SIGNS: Heart rate 95, blood pressure is 110/48, respirations 24, O2 saturation 100% on 2 liter s oxygen nasal cannula. HEENT: Atraumatic. NECK: Supple. HEART: S1, S2 heard. LUNGS: Bilateral air entry present, reduced in the base. ABDOMEN: Softly distended. Colostomy present. MO drain present. EXTREMITIES: Bilateral edema present. LABORATORY DATA: Hemoglobin 8.4, hematocrit 25.4, WBC 18.9, platelets 226. Chemistry: Sodium 140, 3.8, BUN 26, creatinine 1.2. IMPRESSION: This is an 86-year-old patient who is status post Brad's procedure for diverticular abscess, complicated postoperative course, has now perinephric hematoma, off the anticoagulation. Th e patient has a history of atrial fibrillation and sepsis. Presently, the patient is a DNR and DNI. The patient is concerned about p.o. intake, but the patient is weak and difficult to tolerate p.o. f eeding. Close monitoring of the hemoglobin and hematocrit, off the anticoagulation now, on IV antibi otics as per ID. Prognosis is guarded. Thank you very much for allowing us to participate in the care of the patient. Long Archuleta MD cc: [id number] TT: 08/17/2016 19:49:05 Confirmation # [id number] Dictation # [id number] dn
--- NOTE | 2016-08-19 07:34 | PN ---
DATE: 08/16/2016 ADDENDUM: This is an addendum to the GI progress report dictated by Arina Guerrero APN. The patient was seen and evaluated earlier. Discussed with the ICU staff. The patient is presently DNR/DNI. CT scan findings noticed. Urology consult evaluated, consult reviewed. The patient's hemo globin remains 8.2, WBC is 17.1. Abdomen soft. Colostomy has brown stool. RECOMMENDATIONS: Continue the present antibiotic coverage. Continue to follow up the hemoglobin and hematocrit. Prognosis is guarded. Thank you very much for allowing us to participate in the care of the patient. Long Archuleta MD cc: [id number] TT: 08/17/2016 08:10:59 Confirmation # [id number] Dictation # [id number] reymundo
--- NOTE | 2016-08-24 19:57 | CP.PCM.DIS ---
Provider - Provider Date of Admission: 07/30/16 21:21 Attending physician: Praful Diaz MD Primary care physician: Praful Diaz MD Consults: Surgery- Dr Keita ID: Dr Sampson Nephro: Dr Can ICU Cardio: Dr Wolfe Time Spent in preparation of Discharge (in minutes): 60 Diagnosis - Discharge Diagnosis (1) Colonic diverticular abscess Status: Acute (2) Intra-abdominal abscess Status: Acute (3) Entero-colonic fistula Status: Acute (4) Sepsis Status: Acute (5) Perinephric hematoma Status: Acute (6) Rapid atrial fibrillation Status: Acute (7) Hypokalemia Status: Acute (8) Hypomagnesemia Status: Acute (9) Severe malnutrition Status: Acute (10) Lactic acid acidosis Status: Acute (11) KRIS (acute kidney injury) Status: Acute (12) ATN (acute tubular necrosis) Status: Acute (13) Status post Brad's procedure Status: Acute (14) Vitamin D deficiency Status: Acute (15) NSTEMI (non-ST elevated myocardial infarction) Status: Acute (16) Hypophosphatemia Status: Acute (17) Acute blood loss anemia Status: Acute (18) CHF (congestive heart failure) Status: Acute (19) Hospital acquired PNA Status: Acute Hospital Course - Lab Results Lab Results: Micro Results 07/31/16 14:10 Other: Please Indicate Mycobacterial Culture - Preliminary 07/31/16 14:10 Hip Left Fungal Culture - Preliminary NO FUNGUS GROWTH IN 2 WEEKS. 08/15/16 16:31 Naris MRSA Culture (Admit) - Final MRSA NOT DETECTED 08/14/16 17:53 Stool C. difficile Antigen & Toxin A,B (M - Final 08/10/16 09:30 Blood-Venous Blood Culture - Final NO GROWTH AFTER 5 DAYS 08/10/16 09:30 Blood-Venous Gram Stain - Final TEST NOT PERFORMED 08/06/16 16:52 Naris MRSA Culture (Admit) - Final MRSA NOT DETECTED 07/31/16 14:10 Other: Please Indicate Gram Stain - Final 07/31/16 14:10 Other: Please Indicate Body Fluid Culture - Final No growth. 07/31/16 14:10 Hip - Left Anaerobic Culture - Final NO ANAEROBES ISOLATED. 07/31/16 11:00 Rectal Fluid VRE Culture - Final 07/31/16 06:30 Abdomen Gram Stain - Final 07/31/16 06:30 Abdomen Wound Culture - Final Escherichia Coli Most Recent Lab Values WBC 18.9 10^3/ul (4.5-11.0) H 08/17/16 05:00 RBC 2.79 10^6/uL (3.5-6.1) L 08/17/16 05:00 Hgb 8.4 gm/dL (12.0-16.0) L 08/17/16 05:00 Hct 25.4 % (36.0-48.0) L 08/17/16 05:00 MCV 91.0 fL (80.0-105.0) 08/17/16 05:00 MCH 30.1 pg (25.0-35.0) 08/17/16 05:00 MCHC 33.1 g/dl (31.0-37.0) 08/17/16 05:00 RDW 18.3 % (11.5-14.5) H 08/17/16 05:00 Plt Count 276 10^3/uL (120.0-450.0) 08/17/16 05:00 MPV 8.8 fl (7.0-11.0) 08/17/16 05:00 Gran % 90.1 % (50.0-68.0) H 08/17/16 05:00 Lymph % (Auto) 5.2 % (22.0-35.0) L 08/17/16 05:00 [place] % (Auto) 4.6 % (1.0-6.0) 08/17/16 05:00 Eos % (Auto) 0.0 % (1.5-5.0) L 08/17/16 05:00 Baso % (Auto) 0.1 % (0.0-3.0) 08/17/16 05:00 Gran # 17.04 (1.4-6.5) H 08/17/16 05:00 Lymph # 1.0 (1.2-3.4) L 08/17/16 05:00 [place] # 0.9 (0.1-0.6) H 08/17/16 05:00 Eos # 0.0 (0.0-0.7) 08/17/16 05:00 Baso # 0.01 K/mm3 (0.0-2.0) 08/17/16 05:00 Neutrophils % (Manual) 89 % (50.0-70.0) H 08/15/16 16:40 Lymphocytes % (Manual) 10 % (22.0-35.0) L 08/15/16 16:40 Monocytes % (Manual) 1 % (1.0-6.0) 08/15/16 16:40 Platelet Evaluation Normal (NORMAL) 08/15/16 16:40 Polychromasia Slight 08/15/16 16:40 Hypochromasia Slight 08/15/16 16:40 Anisocytosis (manual) Slight 08/15/16 16:40 Macrocytosis (manual) Slight 08/15/16 16:40 Tear Drop Cells Slight 08/15/16 16:40 [place] Cells Slight 08/15/16 16:40 PT 12.3 Seconds (9.9-11.8) H 08/15/16 14:50 INR 1.14 (0.93-1.08) H 08/15/16 14:50 APTT 34.8 Seconds (23.7-30.8) H 08/15/16 14:50 pO2 49 mm/Hg (30-55) 08/16/16 06:30 VBG pH 7.40 (7.32-7.43) 08/16/16 06:30 VBG pCO2 32.0 (40-60) L 08/16/16 06:30 VBG HCO3 19.8 mmol/l (21-28) L 08/16/16 06:30 VBG Total CO2 20.8 mmol.L (22-28) L 08/16/16 06:30 VBG O2 Sat (Calc) 89.6 % (40-65) H 08/16/16 06:30 VBG Base Excess -4.4 mmol/L (0.0-2.0) L 08/16/16 06:30 VBG Potassium 3.9 mmol/L (3.6-5.2) 08/16/16 06:30 Sodium 140.0 mmol/L (132-148) 08/16/16 06:30 Chloride 114.0 mmol/L (98-107) H 08/16/16 06:30 Glucose 85 mg/dl (65-105) 08/16/16 06:30 Lactate 0.8 mmol/L (0.7-2.1) 08/16/16 06:30 FiO2 21.0 % 08/16/16 06:30 Sodium 140 mmol/L (132-148) 08/17/16 05:00 Potassium 3.8 mmol/L (3.6-5.0) 08/17/16 05:00 Chloride 115 mmol/L (95-110) H 08/17/16 05:00 Carbon Dioxide 18 mmol/L (21-33) L 08/17/16 05:00 Anion Gap 11 (10-20) 08/17/16 05:00 BUN 26 mg/dL (7-21) H 08/17/16 05:00 Creatinine 1.2 mg/dL (0.5-1.4) 08/17/16 05:00 Est GFR ( Amer) 52 08/17/16 05:00 Est GFR (Non-Af Amer) 43 08/17/16 05:00 POC Glucose (mg/dL) 122 mg/dL (65-110) H 08/17/16 17:35 Random Glucose 71 mg/dL (70-110) 08/17/16 05:00 Lactic Acid 2.5 mmol/L (0.7-2.1) H 08/07/16 17:08 Calcium 7.7 mg/dL (8.4-10.5) L 08/17/16 05:00 Phosphorus 4.0 mg/dL (2.5-4.5) 08/17/16 05:00 Magnesium 2.0 mg/dL (1.7-2.2) 08/17/16 05:00 Iron 19 ug/dL (45-180) L 07/31/16 08:38 TIBC 152 ug/dL (265-497) L 07/31/16 08:38 % Saturation 12 % (20-55) L 07/31/16 08:38 Ferritin 681.0 ng/mL 07/31/16 08:38 Total Bilirubin 0.7 mg/dL (0.2-1.3) 08/17/16 05:00 AST 26 U/L (15-39) 08/17/16 05:00 ALT 35 U/L (7-56) 08/17/16 05:00 Alkaline Phosphatase 127 U/L (38-133) 08/17/16 05:00 Lactate Dehydrogenase 473 U/L (333-699) 08/12/16 05:30 Total Creatine Kinase < 20 U/L (35-230) L 08/12/16 05:30 Troponin I 0.18 ng/mL H* D 08/12/16 05:30 Total Protein 5.0 g/dL (5.8-8.3) L 08/17/16 05:00 Albumin 2.5 g/dL (3.0-4.8) L 08/17/16 05:00 Globulin 2.5 gm/dL 08/17/16 05:00 Albumin/Globulin Ratio 1.0 (1.1-1.8) L 08/17/16 05:00 Amylase 55 U/L (35-125) 08/13/16 12:54 Lipase 38 U/L (23-300) 08/13/16 12:54 Vitamin B12 896 pg/mL (239-931) 07/31/16 08:38 25-OH Vitamin D Total < 12.8 NG/ML (30.0-100.0) L 08/03/16 09:50 Folate 5.1 ng/mL 07/31/16 08:38 Venous Blood Potassium 3.9 mmol/L (3.6-5.2) 08/16/16 06:30 Urine Color Yellow (YELLOW) 07/30/16 19:10 Urine Appearance Clear (CLEAR) 07/30/16 19:10 Urine pH 6.0 (4.7-8.0) 07/30/16 19:10 Ur Specific [place] 1.020 (1.005-1.035) 07/30/16 19:10 Urine Protein Trace mg/dL (<30 mg/dL) H 07/30/16 19:10 Urine Glucose (UA) Negative mg/dL (NEGATIVE) 07/30/16 19:10 Urine Ketones Negative mg/dL (NEGATIVE) 07/30/16 19:10 Urine Blood Negative (NEGATIVE) 07/30/16 19:10 Urine Nitrate Negative (NEGATIVE) 07/30/16 19:10 Urine Bilirubin Negative (NEGATIVE) 07/30/16 19:10 Urine Urobilinogen 2.0 E.U./dL (<1 E.U./dL) H 07/30/16 19:10 Ur Leukocyte Esterase Small Keli/uL (NEGATIVE) H 07/30/16 19:10 Urine RBC Negative /hpf (0-2) 07/30/16 19:10 Urine WBC 0 - 2 /hpf (0-6) 07/30/16 19:10 Ur Epithelial Cells 3 - 4 /hpf (0-5) 07/30/16 19:10 Amorphous Sediment Few 07/30/16 19:10 Urine Bacteria Neg (NEG) 07/30/16 19:10 Urine Other Uyeast 07/30/16 19:10 Ur Random Sodium 41 meq/L 08/08/16 14:30 Vancomycin Trough 19.3 ug/mL (5.0-10.0) H* 08/13/16 07:30 Random Vancomycin 18.3 ug/mL (20.0-40.0) L 08/17/16 05:00 Digoxin 0.7 ng/mL (0.8-2.0) L 08/13/16 07:30 Blood Type O POSITIVE 08/13/16 09:30 Antibody Screen Negative 08/13/16 09:30 Crossmatch See Detail 08/13/16 09:30 BBK History Checked Patient has bt 08/13/16 09:30 - Hospital Course Hospital Course: Patient is an 86 y/o with PMH of HTN, CAD s/p stents, CHF, HLD, Alzheimer's dementia, h/o cholecystectomy, Diverticulitis admitted with 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 Patient developed KRIS/ATN post operatively which resolved after vigorous IV hydration. On post op day#2, patient developed RVR afib, and was started on Cardizem drip and amiodorone. The Cardizem drip was subsequently changed to po Cardizem, including po amiodorone, however patient was non compliant with her po medications. Furthermore, patient had superimposed NSTEMI post op day #2, patient was started on therapeutic Lovenox as recommended by nurses educator. In addition, the post operative period was complicated with HAP, vancomycin was added to patient's antibiotic regimen after discussing with ID. Repeat blood cultures and urine culture with no growth. Patient's H/H continued to trend down post operatively, including worsening leukocytosis, Repeat CT abdomen and pelvis revealed Left acute perinephric hematoma. Repeat cbc revealed HGB was 5.9, with INR of 1.14. Patient's SBP was also in the 90s. Patient was transferred to ICU Patient was transfused 2 units of ffp and prbc, and Lovenox was held. Surgery and urologist were alerted on the new finding, recommended no surgical intervention. Patient developed electrolytes imbalance throughout the admission, which were all appropriately repleted. Patient developed severe malnutrition with anasarca and bilateral pleural effusion, was giving multiple doses of IV albumin, and started on a diet once cleared by surgery for po intake. Patient became too lethargic for po intake at some point during the admission, and NGT feeding was started. Patient's condition continue to deteriorate through the admission. We kept in touch with patient's grand daughterRyland whom assume the decision making responsibility, both on the phone and in person throughout the admission; including the fact that patient was refusing po intakes, and patient was expressing the need to "Go to the lord". On 08/15/16, Palliative nurse was consulted, patient's grand daughterRyland signed advanced directive, and decided to come patient DNI/DNR. Patient's condition deteriorated on the night of 08/17/16. - Date & Time of H&P Date of H&P: 07/31/16 Time of H&P: 04:07 Discharge Exam - Head Exam Head Exam: ATRAUMATIC, NORMOCEPHALIC - Eye Exam Pupil Exam: Fixed Additional comments: and dilated - Neck Exam Additional comments: No carotid pulses bilaterally. - Respiratory Exam Additional comments: No respiration. - Cardiovascular Exam Additional comments: No HR. - GI/Abdominal Exam Additional comments: No bowel sounds. - Neurological Exam Additional comments: Unresponsive. Discharge Plan - Follow Up Plan Condition: GUARDED Disposition: WITH WITHOUT AUTOPSY Referrals: Praful Diaz MD [Primary Care Provider] -
== END 2016-08-17 20:31 | DRG 329 ==
LOC: ED 15:46 → ERH 21:21 → 5RSO 07-31 00:15 → 5RNO 08-01 08:35 → CCU 08-06 16:53 → 5RNO 08-07 10:09 → 2RNO 08-09 13:50 → CCU 08-15 16:52
PROVIDERS: ADMIT Internal Medicine; ATTEND Internal Medicine
PROC: 0S9B3ZZ Drainage of Left Hip Joint, Percutaneous Approach (ICD-10-PCS; 2016-07-31)
PROC: BW2GZZZ Computerized Tomography (CT Scan) of Pelvic Region (ICD-10-PCS; 2016-07-31)
PROC: 30233N1 Transfusion of Nonautologous Red Blood Cells into Peripheral Vein, Percutaneous Approach (ICD-10-PCS; 2016-08-01)
PROC: 0T788DZ Dilation of Bilateral Ureters with Intraluminal Device, Via Natural or Artificial Opening Endoscopic (ICD-10-PCS; 2016-08-06)
PROC: 0DBM0ZZ Excision of Descending Colon, Open Approach (ICD-10-PCS; principal; 2016-08-07)
PROC: 0D1M0Z4 Bypass Descending Colon to Cutaneous, Open Approach (ICD-10-PCS; 2016-08-07)
PROC: 02HV33Z Insertion of Infusion Device into Superior Vena Cava, Percutaneous Approach (ICD-10-PCS; 2016-08-09)
PROC: B548ZZA Ultrasonography of Superior Vena Cava, Guidance (ICD-10-PCS; 2016-08-09)
PROC: 30233K1 Transfusion of Nonautologous Frozen Plasma into Peripheral Vein, Percutaneous Approach (ICD-10-PCS; 2016-08-15)
DX: K57.20 Diverticulitis of large intestine with perforation and abscess without bleeding (principal); K65.1 Peritoneal abscess; I21.09 ST elevation (STEMI) myocardial infarction involving other coronary artery of anterior wall; I21.4 Non-ST elevation (NSTEMI) myocardial infarction; N17.0 Acute kidney failure with tubular necrosis; A41.9 Sepsis, unspecified organism; K66.1 Hemoperitoneum; R57.9 Shock, unspecified; I13.0 Hypertensive heart and chronic kidney disease with heart failure and stage 1 through stage 4 chronic kidney disease, or unspecified chronic kidney disease; E43 Unspecified severe protein-calorie malnutrition; J18.9 Pneumonia, unspecified organism; E87.2 Acidosis; D68.9 Coagulation defect, unspecified; E87.1 Hypo-osmolality and hyponatremia; I47.1 Supraventricular tachycardia; I48.1 Persistent atrial fibrillation; I48.92 Unspecified atrial flutter; N32.1 Vesicointestinal fistula; I31.3 Pericardial effusion (noninflammatory); K62.5 Hemorrhage of anus and rectum; Q43.8 Other specified congenital malformations of intestine; G30.9 Alzheimer's disease, unspecified; F02.80 Dementia in other diseases classified elsewhere, unspecified severity, without behavioral disturbance, psychotic disturbance, mood disturbance, and anxiety; I50.9 Heart failure, unspecified; E86.1 Hypovolemia; E83.42 Hypomagnesemia; D50.9 Iron deficiency anemia, unspecified; I25.118 Atherosclerotic heart disease of native coronary artery with other forms of angina pectoris; E55.9 Vitamin D deficiency, unspecified; E78.00 Pure hypercholesterolemia, unspecified; E78.5 Hyperlipidemia, unspecified; E87.6 Hypokalemia; N18.9 Chronic kidney disease, unspecified; K56.41 Fecal impaction; I27.2 Other secondary pulmonary hypertension; I35.0 Nonrheumatic aortic (valve) stenosis; K21.9 Gastro-esophageal reflux disease without esophagitis; K52.9 Noninfective gastroenteritis and colitis, unspecified; M81.0 Age-related osteoporosis without current pathological fracture; Z66 Do not resuscitate; Z79.82 Long term (current) use of aspirin; Z79.83 Long term (current) use of bisphosphonates; Z79.899 Other long term (current) drug therapy; Z87.440 Personal history of urinary (tract) infections; Z87.442 Personal history of urinary calculi; Z90.49 Acquired absence of other specified parts of digestive tract; Z90.710 Acquired absence of both cervix and uterus; Z95.5 Presence of coronary angioplasty implant and graft; H26.9 Unspecified cataract; K64.9 Unspecified hemorrhoids; K80.20 Calculus of gallbladder without cholecystitis without obstruction; R40.2412 Glasgow coma scale score 13-15, at arrival to emergency department; B96.20 Unspecified Escherichia coli [E. coli] as the cause of diseases classified elsewhere